=== PATIENT | male | born 1955 | race Caucasian/White ===

== ENCOUNTER 2018-07-16 12:00 | Outpatient (CLI) | payer OTHER, MEDICARE ==
[~2018-07-16 12:00] MED LIST: ALBU8.5H8 INH; BUDE10.2 INH; CARV-49 PO; CHOL10002 PO; DULO-31 PO; FLUT16SP26 BOTHNARES; FURO40TA4 PO; GABA-532 PO; LOSA25TA21 PO; MULT-342 PO; ONDA8TAB6 PO; OXYC-138 PO; PANT-47 PO; POTA10CA44 PO; VAL5T PO; VITA-293 PO; oxygen
== END 2018-07-16 23:59 | disposition home or self-care (01) ==
LOC: RAD 12:00
PROVIDERS: ATTEND Family Medicine
DX: S92.424A Nondisplaced fracture of distal phalanx of right great toe, initial encounter for closed fracture (principal); I13.0 Hypertensive heart and chronic kidney disease with heart failure and stage 1 through stage 4 chronic kidney disease, or unspecified chronic kidney disease; I50.9 Heart failure, unspecified; N18.3 Chronic kidney disease, stage 3 (moderate); J44.9 Chronic obstructive pulmonary disease, unspecified; Z91.041 Radiographic dye allergy status; Z91.030 Bee allergy status; Z87.891 Personal history of nicotine dependence; Z79.899 Other long term (current) drug therapy; X58.XXXA Exposure to other specified factors, initial encounter; Y93.89 Activity, other specified; Y92.89 Other specified places as the place of occurrence of the external cause; Y99.8 Other external cause status
CPT/HCPCS: 73660

== ENCOUNTER 2018-08-07 16:41 | Observation (INO) | payer OTHER, MEDICARE ==
[~2018-08-07] VITALS: Ht 172.7 cm; Wt 121.8 kg
[~2018-08-07 16:41] MED LIST changes: +LOSA25TA12 PO; -LOSA25TA21 PO
[2018-08-07 17:10] LABS: BASOPHILS % (AUTO) 0.4 % (0-1); EOSINOPHILS # (AUTO) 0.2 X10'3 (0-0.9); EOSINOPHILS % (AUTO) 2.3 % (0-6); HEMATOCRIT 38.3 % (42.0-52.0); HEMOGLOBIN 11.8 g/dl (14.0-17.9); LYMPHOCYTES % (AUTO) 28.5 % (21-51); MEAN CORPUSCULAR HEMOGLOBIN 21.2 PG (27.0-31.0); MEAN CORPUSCULAR HGB CONC 30.8 % (33.0-36.5); MEAN CORPUSCULAR VOLUME 68.8 FL (78-98); MEAN PLATELET VOLUME 7.3 FL (7.4-10.4); MONOCYTES # (AUTO) 0.6 X10'3 (0-0.9); MONOCYTES % (AUTO) 8.8 % (2-12); NEUTROPHILS # (AUTO) 4.2 X10'3 (1.8-7.7); PLATELET COUNT 294 X10'3 (140-440); RED BLOOD COUNT 5.57 X10'6 (4.70-6.10); RED CELL DISTRIBUTION WIDTH 19.4 % (11.5-14.5)
[2018-08-07 17:27] LABS: PARTIAL THROMBOPLASTIN TIME 28 SECONDS (22-32); PROTHROMBIN TIME 10.7 SECONDS (9.0-12.0)
[2018-08-07 17:31] LABS: ALANINE AMINOTRANSFERASE 22 U/L (12-78); ALBUMIN 3.2 G/DL (3.4-5.0); ALBUMIN/GLOBULIN RATIO 0.8 (1.1-1.5); ALKALINE PHOSPHATASE 97 IU/L (46-116); ANION GAP 9 (8-16); ASPARTATE AMINO TRANSFERASE 9 U/L (10-37); BILIRUBIN,TOTAL 0.5 MG/DL (0.1-1.0); BLOOD UREA NITROGEN 16 MG/DL (7-18); BUN/CREATININE RATIO 8.2 (5.4-32.0); CHLORIDE 103 MMOL/L (99-107); CREATININE 1.94 MG/DL (0.60-1.10); GLUCOSE 120 MG/DL (70-104); POTASSIUM 3.9 MMOL/L (3.5-5.1); SODIUM 140 MMOL/L (135-145); TOTAL CARBON DIOXIDE 27.7 MMOL/L (24-32); TOTAL PROTEIN 7.1 G/DL (6.4-8.2); eGFR 35 ML/MIN
[2018-08-07 17:56] LABS: PLATELET ESTIMATE NORMAL
[2018-08-07 17:57] LABS: ANISOCYTOSIS 2+; MICROCYTOSIS 2+; POLYCHROMASIA FEW
[2018-08-07 17:58] LABS: HYPOCHROMASIA 2+
[2018-08-07] MEDS ORDERED: nitroGLYCERIN 0.4mg SUBLingual tab SL PRN (20:40)
[2018-08-07] MEDS ORDERED: mag hydrox/Alum hydrox/simeth 30ml oral suspension PO PRN (20:40)
[2018-08-07] MEDS ORDERED: bisacodyl 10mg suppository rectal RC PRN (20:40)
[2018-08-07] MEDS ORDERED: morphine 4 MG/ML inj SYRINge IV PRN ×2 (20:40)
[2018-08-07] MEDS ORDERED: ondansetron/PF 4mg/2ml inj IV PRN ×2 (20:40→21:00)
[2018-08-07] MEDS ORDERED: aspirin 325mg tablet PO ONE (20:40)
[2018-08-07] MEDS ORDERED: magnesium hydroxide 30ml (MOM) UD suspension PO PRN (20:40)
[2018-08-07] MEDS ORDERED: acetaminophen 325mg tablet PO PRN (20:40)
[2018-08-07] MEDS ORDERED: gabapentin 300mg capsule PO SCH (21:00)
[2018-08-07] MEDS: normal saline 1000ml 1,000 ML IV SCH (21:08)
[2018-08-07] MEDS ORDERED: LORazepam 0.5 MG tablet PO PRN (21:10)
[2018-08-07 21:30] VITALS: BP 150/85
[2018-08-07] MEDS ORDERED: morphine 2 MG/ML inj. syringe IV PRN (21:39)
[2018-08-08] MEDS: albuterol 2.5 MG/3 ML nebule NEB SCH ×2 (00:07→08:00)
[2018-08-08 03:00] VITALS: BP 138/79
[2018-08-08 05:48] LABS: BASOPHILS % (AUTO) 0.6 % (0-1); EOSINOPHILS # (AUTO) 0.2 X10'3 (0-0.9); HEMATOCRIT 35.3 % (42.0-52.0); LYMPHOCYTES % (AUTO) 36.3 % (21-51); MEAN CORPUSCULAR HEMOGLOBIN 21.7 PG (27.0-31.0); MEAN CORPUSCULAR HGB CONC 31.2 % (33.0-36.5); MEAN CORPUSCULAR VOLUME 69.4 FL (78-98); MEAN PLATELET VOLUME 7.2 FL (7.4-10.4); MONOCYTES # (AUTO) 0.7 X10'3 (0-0.9); MONOCYTES % (AUTO) 12.7 % (2-12); NEUTROPHILS # (AUTO) 2.6 X10'3 (1.8-7.7); NEUTROPHILS % (AUTO) 47.4 % (42-75); PLATELET COUNT 226 X10'3 (140-440); RED BLOOD COUNT 5.09 X10'6 (4.70-6.10); RED CELL DISTRIBUTION WIDTH 18.6 % (11.5-14.5); WHITE BLOOD COUNT 5.5 X10'3 (4.5-11.0)
[2018-08-08 06:00] VITALS: BP 112/79
[2018-08-08 06:06] LABS: ALANINE AMINOTRANSFERASE 15 U/L (12-78); ALBUMIN 2.8 G/DL (3.4-5.0); ALBUMIN/GLOBULIN RATIO 0.8 (1.1-1.5); ALKALINE PHOSPHATASE 92 IU/L (46-116); ANION GAP 7 (8-16); ASPARTATE AMINO TRANSFERASE 11 U/L (10-37); BILIRUBIN,TOTAL 0.4 MG/DL (0.1-1.0); BLOOD UREA NITROGEN 17 MG/DL (7-18); BUN/CREATININE RATIO 9.6 (5.4-32.0); CALCIUM 8.5 MG/DL (8.5-10.1); CHLORIDE 105 MMOL/L (99-107); CREATININE 1.77 MG/DL (0.60-1.10); GLUCOSE 95 MG/DL (70-104); POTASSIUM 3.7 MMOL/L (3.5-5.1); SODIUM 142 MMOL/L (135-145); TOTAL CARBON DIOXIDE 29.8 MMOL/L (24-32); TOTAL PROTEIN 6.3 G/DL (6.4-8.2); eGFR 39 ML/MIN
[2018-08-08 06:40] LABS: ANISOCYTOSIS 2+; MICROCYTOSIS 2+; PLATELET ESTIMATE NORMAL
[2018-08-08] MEDS ORDERED: pantoprazole 40mg Tablet.DR PO SCH (07:30)
[2018-08-08] MEDS ORDERED: losartan 25mg tablet PO SCH ×2 (08:00→21:00)
[2018-08-08] MEDS ORDERED: fluticasone nasal spray 16GM bottle NS SCH ×2 (08:00→20:00)
[2018-08-08] MEDS ORDERED: aspirin 325mg tablet PO SCH (08:00)
[2018-08-08] MEDS ORDERED: potassium chloride 10mEq ER tablet PO SCH (08:00)
[2018-08-08] MEDS ORDERED: duloxetine 30mg CAPSULE.DR PO SCH (08:00)
[2018-08-08] MEDS ORDERED: docusate sod 100mg capsule PO SCH (08:00)
[2018-08-08] MEDS ORDERED: furosemide 20MG tablet PO SCH (08:00)
[2018-08-08] MEDS: normal saline 1000ml 1,000 ML IV SCH (09:43)
[2018-08-08 11:00] VITALS: BP 125/79
[2018-08-08] MEDS ORDERED: oxyCODONE/APAP 10/325mg tablet PO PRN (11:45)
[2018-08-08] MEDS ORDERED: non-formulary drug (Ondansetron Hcl (Zofran) 1 TAB) PO PRN (11:45)
[2018-08-08] MEDS ORDERED: non-formulary drug (Albuterol Sulfate (Proair Hfa) 2 PUFFS) INH PRN (11:45)
[2018-08-08] MEDS ORDERED: diazepam 5mg tablet PO PRN (11:45)
[2018-08-08] MEDS ORDERED: budesonide 0.5mg/2ml UD nebule IH SCH (20:00)
[2018-08-08] MEDS ORDERED: carvedilol 6.25mg tablet PO SCH (20:00)
[2018-08-08] MEDS ORDERED: potassium Cl 20 mEq SR tablet PO SCH (20:00)
[2018-08-08] MEDS ORDERED: furosemide 40mg tablet PO SCH (20:00)
[2018-08-08] MEDS ORDERED: gabapentin 300mg capsule PO SCH (21:00)
[2018-08-08] MEDS ORDERED: vitamin D (cholecalciferol) 1,000 unit tablet PO SCH (21:00)
[2018-08-09] MEDS ORDERED: vitamin B comp w/Vit. C tab 1 TAB TABLET PO SCH (08:00)
[2018-08-09] MEDS ORDERED: multivitamins, therapeutics tablet PO SCH (08:00)
[2018-08-09] MEDS ORDERED: pantoprazole 40mg Tablet.DR PO SCH (08:00)
[2018-08-09] MEDS ORDERED: duloxetine 30mg CAPSULE.DR PO SCH (08:00)
== END 2018-08-08 14:55 | disposition home or self-care (01) ==
LOC: ER 16:42 → ED HOLD 20:40 → PCU 3S 21:36
PROVIDERS: ADMIT Emergency Medicine; ATTEND Family Medicine
DX: J44.9 Chronic obstructive pulmonary disease, unspecified (principal); I13.0 Hypertensive heart and chronic kidney disease with heart failure and stage 1 through stage 4 chronic kidney disease, or unspecified chronic kidney disease; E11.22 Type 2 diabetes mellitus with diabetic chronic kidney disease; I50.32 Chronic diastolic (congestive) heart failure; N18.2 Chronic kidney disease, stage 2 (mild); I25.10 Atherosclerotic heart disease of native coronary artery without angina pectoris; N40.0 Benign prostatic hyperplasia without lower urinary tract symptoms; K21.9 Gastro-esophageal reflux disease without esophagitis; G93.89 Other specified disorders of brain; Z87.442 Personal history of urinary calculi; Z87.891 Personal history of nicotine dependence; Z90.49 Acquired absence of other specified parts of digestive tract; Z99.81 Dependence on supplemental oxygen
CPT/HCPCS: 36415; 70450; 71045; 80053; 84484; 85025; 85610; 85730; 87070; 93005; 93306; 94640; 96361; 96374; 99285; G0378; J2270; J7030; 96372

== ENCOUNTER 2018-08-30 10:33 | Outpatient (CLI) | payer OTHER, MEDICARE | END 2018-08-30 23:59 | disposition home or self-care (01) | LOC: VAS 10:33 | PROVIDERS: ATTEND Internal Medicine Cardiovascular Disease | DX: I65.23 Occlusion and stenosis of bilateral carotid arteries (principal); R06.02 Shortness of breath; I11.0 Hypertensive heart disease with heart failure; I50.9 Heart failure, unspecified; R55 Syncope and collapse; E11.9 Type 2 diabetes mellitus without complications; J44.9 Chronic obstructive pulmonary disease, unspecified; Z87.891 Personal history of nicotine dependence | CPT/HCPCS: 93880 ==

== ENCOUNTER 2018-09-10 07:16 | Outpatient (CLI) | payer OTHER, MEDICARE ==
[~2018-09-10] VITALS: Ht 172.7 cm; Wt 119.0 kg
[2018-09-10] VITALS (7 sets, daily range): BP systolic 106–134; BP diastolic 60–76
[2018-09-10] MEDS ORDERED: metoprolol tartrate 1mg/ml inj IV PRN (08:20)
[2018-09-10] MEDS ORDERED: aminophylline 250mg/10ml inj. IV PRN (08:20)
[2018-09-10] MEDS ORDERED: nitroGLYCERIN 0.4mg SUBLingual tab SL PRN (08:20)
[2018-09-10] MEDS ORDERED: aminophylline inj. 0 ML IV ONE (09:04)
[2018-09-10] MEDS ORDERED: regadenoson 0.4mg/5ml syringe IV ONE (09:04)
[2018-09-10] MEDS: regadenoson 0.4mg/5ml syringe IV PRN ×2 (09:05→09:24)
== END 2018-09-10 23:59 | disposition home or self-care (01) ==
LOC: RAD 07:16
PROVIDERS: ATTEND Internal Medicine Cardiovascular Disease
DX: R06.02 Shortness of breath (principal); R55 Syncope and collapse; I11.0 Hypertensive heart disease with heart failure; I50.9 Heart failure, unspecified; J44.9 Chronic obstructive pulmonary disease, unspecified; Z87.891 Personal history of nicotine dependence
CPT/HCPCS: 78452; 93017; A9500; J0280

== ENCOUNTER 2018-10-21 10:10 | Outpatient (CLI) | payer OTHER, MEDICARE ==
[2018-10-21 11:37] LABS: CLARITY,URINE SLIGHTLY CLOUDY (Clear); COLOR,URINE YELLOW (Yellow); GLUCOSE, URINE NEGATIVE (Neg); KETONES,URINE NEGATIVE (Neg); LEUKOCYTE ESTERASE ,URINE LARGE (Neg); NITRITES, URINE NEGATIVE (Neg); OCCULT BLOOD,URINE TRACE-INTACT (Neg); PROTEIN,URINE NEGATIVE (Neg); UROBILINOGEN,URINE 0.2 E.U/dL (0.2-1.0)
[2018-10-21 11:47] LABS: UA COLLECTION TYPE CLN CATCH MIDSTREAM
[2018-10-21 11:50] LABS: RBC,URINE 0-2 /HPF (0-2); WBC,URINE TNTC /HPF (0-4)
[2018-10-21 11:51] LABS: ALANINE AMINOTRANSFERASE 16 U/L (12-78); ALBUMIN/GLOBULIN RATIO 0.7 (1.1-1.5); ALKALINE PHOSPHATASE 94 IU/L (46-116); ANION GAP 8 (8-16); ASPARTATE AMINO TRANSFERASE 11 U/L (10-37); BILIRUBIN,TOTAL 0.4 MG/DL (0.1-1.0); BLOOD UREA NITROGEN 13 MG/DL (7-18); BUN/CREATININE RATIO 6.8 (5.4-32.0); CALCIUM 9.2 MG/DL (8.5-10.1); CHLORIDE 100 MMOL/L (99-107); CHOL/HDL RATIO 3.9 (0.00-4.99); CHOLESTEROL 135 MG/DL (0-200); CREATININE 1.92 MG/DL (0.60-1.10); GLUCOSE 97 MG/DL (70-104); HDL CHOLESTEROL 35 MG/DL (35-60); HEMOGLOBIN A1C 6.1 % (4.5-6.2); LDL CHOLESTEROL 87 MG/DL (50-100); POTASSIUM 3.6 MMOL/L (3.5-5.1); SODIUM 142 MMOL/L (135-145); TOTAL CARBON DIOXIDE 34.1 MMOL/L (24-32); TOTAL PROTEIN 7.6 G/DL (6.4-8.2); TRIGLYCERIDES 83 MG/DL (20-135); eGFR 35 ML/MIN
[2018-10-21 11:51] LABS: BACTERIA,URINE NONE SEEN /HPF (Neg); SQUAMOUS EPITHELIAL CELL,UR FEW /LPF (FEW)
[2018-10-21 11:52] LABS: WBC CLUMPS,URINE FEW /HPF (NEGATIVE)
[2018-10-21 12:24] LABS: BASOPHILS % (AUTO) 0.3 % (0-1); EOSINOPHILS # (AUTO) 0.2 X10'3 (0-0.9); HEMATOCRIT 38.9 % (42.0-52.0); HEMOGLOBIN 11.5 g/dl (14.0-17.9); LYMPHOCYTES # (AUTO) 1.8 X10'3 (1.1-4.8); LYMPHOCYTES % (AUTO) 29.4 % (21-51); MEAN CORPUSCULAR HEMOGLOBIN 20.5 PG (27.0-31.0); MEAN CORPUSCULAR HGB CONC 29.6 % (33.0-36.5); MEAN CORPUSCULAR VOLUME 69.1 FL (78-98); MEAN PLATELET VOLUME 7.7 FL (7.4-10.4); MONOCYTES # (AUTO) 0.5 X10'3 (0-0.9); MONOCYTES % (AUTO) 8.5 % (2-12); NEUTROPHILS # (AUTO) 3.5 X10'3 (1.8-7.7); NEUTROPHILS % (AUTO) 57.8 % (42-75); PLATELET COUNT 250 X10'3 (140-440); RED BLOOD COUNT 5.63 X10'6 (4.70-6.10); RED CELL DISTRIBUTION WIDTH 20.1 % (11.5-14.5)
[2018-10-21 12:28] LABS: PLATELET ESTIMATE NORMAL
[2018-10-21 12:30] LABS: ANISOCYTOSIS 2+; ELLIPTOCYTES FEW; HYPOCHROMASIA 2+; MICROCYTOSIS 2+; POLYCHROMASIA FEW; TEAR DROP CELLS FEW
== END 2018-10-21 23:59 | disposition home or self-care (01) ==
LOC: LAB 10:10
PROVIDERS: ATTEND Family Medicine
DX: J44.9 Chronic obstructive pulmonary disease, unspecified (principal); I11.0 Hypertensive heart disease with heart failure; I50.9 Heart failure, unspecified; E78.5 Hyperlipidemia, unspecified; R53.83 Other fatigue; Z87.891 Personal history of nicotine dependence
CPT/HCPCS: 36415; 80053; 80061; 81001; 82607; 82746; 83036; 84439; 84443; 84550; 85025; 87088

== ENCOUNTER 2018-10-30 11:20 | Emergency (ER) | payer OTHER, MEDICARE ==
[~2018-10-30] VITALS: Ht 170.2 cm; Wt 122.0 kg
[2018-10-30] MEDS ORDERED: ipratropium/albuterol 3ml nebule NEB ONE (12:15)
[2018-10-30 12:40] LABS: BASOPHILS % (AUTO) 0.6 % (0-1); EOSINOPHILS # (AUTO) 0.2 X10'3 (0-0.9); EOSINOPHILS % (AUTO) 2.8 % (0-6); HEMATOCRIT 35.6 % (42.0-52.0); HEMOGLOBIN 10.8 g/dl (14.0-17.9); LYMPHOCYTES # (AUTO) 1.3 X10'3 (1.1-4.8); LYMPHOCYTES % (AUTO) 20.8 % (21-51); MEAN CORPUSCULAR HEMOGLOBIN 20.6 PG (27.0-31.0); MEAN CORPUSCULAR HGB CONC 30.3 % (33.0-36.5); MEAN PLATELET VOLUME 7.5 FL (7.4-10.4); MONOCYTES # (AUTO) 0.6 X10'3 (0-0.9); MONOCYTES % (AUTO) 10.3 % (2-12); NEUTROPHILS % (AUTO) 65.5 % (42-75); PLATELET COUNT 267 X10'3 (140-440); RED BLOOD COUNT 5.23 X10'6 (4.70-6.10); RED CELL DISTRIBUTION WIDTH 20.3 % (11.5-14.5); WHITE BLOOD COUNT 6.2 X10'3 (4.5-11.0)
[2018-10-30 12:56] LABS: INR 1.1 INR; PROTHROMBIN TIME 10.7 SECONDS (9.0-12.0)
[2018-10-30 12:58] LABS: ALBUMIN/GLOBULIN RATIO 0.7 (1.1-1.5); ANION GAP 7 (8-16); ASPARTATE AMINO TRANSFERASE 11 U/L (10-37); BILIRUBIN,TOTAL 0.5 MG/DL (0.1-1.0); BLOOD UREA NITROGEN 18 MG/DL (7-18); BUN/CREATININE RATIO 9.1 (5.4-32.0); CALCIUM 8.8 MG/DL (8.5-10.1); CHLORIDE 103 MMOL/L (99-107); CREATININE 1.97 MG/DL (0.60-1.10); GLUCOSE 104 MG/DL (70-104); POTASSIUM 3.7 MMOL/L (3.5-5.1); SODIUM 142 MMOL/L (135-145); TOTAL CARBON DIOXIDE 31.8 MMOL/L (24-32); TOTAL PROTEIN 7.2 G/DL (6.4-8.2); eGFR 34 ML/MIN
[2018-10-30 12:59] LABS: ALANINE AMINOTRANSFERASE 16 U/L (12-78); ALKALINE PHOSPHATASE 91 IU/L (46-116)
[2018-10-30] MEDS ORDERED: levoFLOXACIN 750MG TABLET PO ONE (13:40)
[2018-10-30] MEDS ORDERED: PRED20TA PO (13:59)
[2018-10-30] MEDS ORDERED: LEVO750T21 PO (13:59)
[2018-10-30] MEDS ORDERED: methylPREDNISolone sod succ 125mg/2ml vial IV ONE (14:00)
[2018-10-30 14:30] VITALS: BP 123/42
[2018-10-30 14:58] LABS: PLATELET ESTIMATE NORMAL
[2018-10-30 14:59] LABS: HYPOCHROMASIA 2+
[2018-10-30 15:00] LABS: ANISOCYTOSIS 2+; ELLIPTOCYTES FEW; MICROCYTOSIS 2+; SCHISTOCYTES FEW
== END 2018-10-30 14:32 | disposition home or self-care (01) ==
LOC: ER 11:20
DX: J44.1 Chronic obstructive pulmonary disease with (acute) exacerbation (principal); I11.0 Hypertensive heart disease with heart failure; I50.9 Heart failure, unspecified; G89.29 Other chronic pain; Z90.49 Acquired absence of other specified parts of digestive tract; Z87.891 Personal history of nicotine dependence; Z91.030 Bee allergy status; Z91.048 Other nonmedicinal substance allergy status; Z79.899 Other long term (current) drug therapy
CPT/HCPCS: 36415; 71045; 80053; 83880; 84484; 85025; 85379; 85610; 93005; 94640; 94760; 96374; 99284; J2930

== ENCOUNTER 2018-12-26 07:34 | Outpatient (CLI) | payer OTHER, MEDICARE ==
[2018-12-26] VITALS (21 sets, daily range): BP systolic 93–125; BP diastolic 72–87
[~2018-12-26 07:34] MED LIST changes: -LOSA25TA12 PO; +LOSA25TA41 PO
== END 2018-12-26 23:59 | disposition home or self-care (01) ==
LOC: CARD DIAG 07:34
PROVIDERS: ATTEND Internal Medicine Cardiovascular Disease
DX: R42 Dizziness and giddiness (principal); I11.0 Hypertensive heart disease with heart failure; I50.9 Heart failure, unspecified; J44.9 Chronic obstructive pulmonary disease, unspecified; Z91.030 Bee allergy status; Z91.048 Other nonmedicinal substance allergy status
CPT/HCPCS: 93660

== ENCOUNTER 2019-10-19 07:45 | Emergency (ER) | payer OTHER, MEDICARE ==
[~2019-10-19] VITALS: Ht 172.7 cm; Wt 120.5 kg
[2019-10-19 09:09] LABS: BASOPHILS % (AUTO) 0.2 % (0-1); EOSINOPHILS % (AUTO) 0.2 % (0-6); HEMATOCRIT 36.2 % (42.0-52.0); HEMOGLOBIN 10.8 g/dl (14.0-17.9); LYMPHOCYTES % (AUTO) 5.9 % (21-51); MEAN CORPUSCULAR HEMOGLOBIN 19.1 PG (27.0-31.0); MEAN CORPUSCULAR HGB CONC 29.8 g/dL (33.0-36.5); MEAN CORPUSCULAR VOLUME 64.1 FL (78-98); MEAN PLATELET VOLUME 8.7 FL (7.4-10.4); MONOCYTES # (AUTO) 1.5 X10'3 (0-0.9); MONOCYTES % (AUTO) 9.1 % (2-12); NEUTROPHILS % (AUTO) 84.6 % (42-75); PLATELET COUNT 233 X10'3 (140-440); RED BLOOD COUNT 5.65 X10'6 (4.70-6.10); RED CELL DISTRIBUTION WIDTH 20.5 % (11.5-14.5); WHITE BLOOD COUNT 16.6 X10'3 (4.5-11.0)
[2019-10-19 09:15] LABS: CLARITY,URINE CLOUDY (Clear); COLOR,URINE YELLOW (Yellow); GLUCOSE, URINE NEGATIVE (Neg); KETONES,URINE NEGATIVE (Neg); LEUKOCYTE ESTERASE ,URINE LARGE (Neg); NITRITES, URINE POSITIVE (Neg); OCCULT BLOOD,URINE SMALL (Neg); PROTEIN,URINE TRACE mg/dl (Neg); UROBILINOGEN,URINE 0.2 E.U/dL (0.2-1.0)
[2019-10-19 09:19] LABS: ALANINE AMINOTRANSFERASE 16 U/L (12-78); ALBUMIN 3.3 G/DL (3.4-5.0); ALBUMIN/GLOBULIN RATIO 0.8 (1.1-1.5); ALKALINE PHOSPHATASE 91 IU/L (46-116); ANION GAP 11 (8-16); ASPARTATE AMINO TRANSFERASE 18 U/L (10-37); BILIRUBIN,TOTAL 0.6 MG/DL (0.1-1.0); BLOOD UREA NITROGEN 16 MG/DL (7-18); BUN/CREATININE RATIO 7.8 (5.4-32.0); CHLORIDE 103 MMOL/L (99-107); CREATININE 2.05 MG/DL (0.60-1.10); GLUCOSE 123 MG/DL (70-104); POTASSIUM 3.5 MMOL/L (3.5-5.1); SODIUM 143 MMOL/L (135-145); TOTAL CARBON DIOXIDE 29.3 MMOL/L (24-32); TOTAL PROTEIN 7.4 G/DL (6.4-8.2); eGFR 33 ML/MIN
[2019-10-19 09:20] LABS: UA COLLECTION TYPE URINAL
[2019-10-19 09:21] LABS: BACTERIA,URINE 4+ /HPF (Neg); MUCUS STRANDS FEW /LPF (Neg); RBC,URINE 0-2 /HPF (0-2); SQUAMOUS EPITHELIAL CELL,UR FEW /LPF (FEW); TRANSITIONAL EPI CELLS,URINE FEW /HPF; WBC,URINE TNTC /HPF (0-4)
[2019-10-19 09:23] LABS: PARTIAL THROMBOPLASTIN TIME 30 SECONDS (22-32)
[2019-10-19 09:29] LABS: ANISOCYTOSIS 3+; HYPOCHROMASIA 1+; MICROCYTOSIS 2+; PLATELET ESTIMATE NORMAL; POIKILOCYTOSIS FEW; POLYCHROMASIA 1+
[2019-10-19] MEDS ORDERED: normal saline 1000ML IV soln IVB ONE ×2 (09:30→09:35)
[2019-10-19] MEDS ORDERED: CefTRIAXone 2gm/D5W 50ml 50 ML IV ONE (09:35)
[2019-10-19] MEDS ORDERED: HYDROcodone/acetaminophen 5mg/325mg tablet PO ONE (09:45)
[2019-10-19] MEDS ORDERED: LORazepam 2 mg/ml vial IV ONE (11:15)
[2019-10-19] MEDS ORDERED: CEPH-572 PO (11:54)
[2019-10-19 12:37] VITALS: BP 117/57
[2019-10-19] MEDS ORDERED: CARV3.122 PO (16:50)
[2019-10-19] MEDS ORDERED: DULO60CA65 PO (17:29)
[2019-10-19] MEDS ORDERED: FLO0.4C PO (17:33)
[2019-10-19] MEDS ORDERED: TOLT4CAP14 PO (17:33)
== END 2019-10-19 12:39 | disposition home or self-care (01) ==
LOC: ER 07:45
DX: N39.0 Urinary tract infection, site not specified (principal); R06.02 Shortness of breath; I11.0 Hypertensive heart disease with heart failure; I50.9 Heart failure, unspecified; J44.9 Chronic obstructive pulmonary disease, unspecified; G89.29 Other chronic pain; F10.99 Alcohol use, unspecified with unspecified alcohol-induced disorder; Z87.442 Personal history of urinary calculi; Z87.891 Personal history of nicotine dependence; Z90.49 Acquired absence of other specified parts of digestive tract; Z91.030 Bee allergy status; Z88.6 Allergy status to analgesic agent; Z79.899 Other long term (current) drug therapy; Y90.9 Presence of alcohol in blood, level not specified
CPT/HCPCS: 36415; 71045; 80053; 81001; 83605; 84145; 84484; 85025; 85610; 85730; 87040; 87077; 87088; 87186; 93005; 96365; 96375; 99284; J0696; J2060; J7030

== ENCOUNTER 2019-10-19 14:13 | Inpatient (IN) | payer OTHER, MEDICARE ==
[~2019-10-19] VITALS: Ht 172.7 cm; Wt 147.7 kg
[~2019-10-19 14:13] MED LIST changes: +CEPH-572 PO
[2019-10-19] MEDS ORDERED: etomidate 2mg/ml inj. IV ONE (15:25)
[2019-10-19] MEDS ORDERED: morphine 4 MG/ML inj SYRINge ONE (15:48)
[2019-10-19] MEDS ORDERED: morphine 4 MG/ML inj SYRINge IV ONE (15:50)
[2019-10-19] MEDS ORDERED: acetaminophen 325mg tablet PO PRN (16:15)
[2019-10-19] MEDS ORDERED: ondansetron/PF 4mg/2ml inj IV PRN (16:15)
[2019-10-19] MEDS: normal saline 1000ml 1,000 ML IV SCH (16:26)
[2019-10-19] MEDS ORDERED: fentaNYL/PF 50MCG/1 ML 2ML syringe IV ONE (16:35)
[2019-10-19] MEDS ORDERED: CARV3.122 PO (16:50)
[2019-10-19] MEDS ORDERED: DULO60CA65 PO (17:29)
[2019-10-19] MEDS ORDERED: TOLT4CAP14 PO (17:33)
[2019-10-19] MEDS ORDERED: FLO0.4C PO (17:33)
[2019-10-19] MEDS: HYDROcodone/acetaminophen 5mg/325mg tablet PO PRN ×2 (18:23→22:13)
[2019-10-19 19:25] VITALS: BP 103/58
[2019-10-19] MEDS: docusate sod 100mg capsule PO SCH (20:00)
[2019-10-19] MEDS ORDERED: FLU VACC QS2019-20 36MOS UP/PF 60 MCG/0.5 ML SYRINGE IMVAC ONE (20:05)
[2019-10-20] MEDS: HYDROcodone/acetaminophen 5mg/325mg tablet PO PRN ×5 (02:16→21:46)
[2019-10-20] MEDS: normal saline 1000ml 1,000 ML IV SCH ×3 (02:20→22:28)
[2019-10-20 06:00] VITALS: BP 120/68
[2019-10-20 06:27] LABS: BASOPHILS # (AUTO) 0.1 X10'3 (0-0.2); BASOPHILS % (AUTO) 0.3 % (0-1); EOSINOPHILS % (AUTO) 0.2 % (0-6); HEMATOCRIT 29.8 % (42.0-52.0); LYMPHOCYTES # (AUTO) 1.2 X10'3 (1.1-4.8); LYMPHOCYTES % (AUTO) 6.3 % (21-51); MEAN CORPUSCULAR HEMOGLOBIN 19.2 PG (27.0-31.0); MEAN CORPUSCULAR HGB CONC 30.3 g/dL (33.0-36.5); MEAN CORPUSCULAR VOLUME 63.4 FL (78-98); MEAN PLATELET VOLUME 8.4 FL (7.4-10.4); MONOCYTES # (AUTO) 1.9 X10'3 (0-0.9); MONOCYTES % (AUTO) 9.7 % (2-12); NEUTROPHILS # (AUTO) 16.3 X10'3 (1.8-7.7); NEUTROPHILS % (AUTO) 83.5 % (42-75); PLATELET COUNT 192 X10'3 (140-440); RED CELL DISTRIBUTION WIDTH 21.1 % (11.5-14.5); WHITE BLOOD COUNT 19.5 X10'3 (4.5-11.0)
[2019-10-20 06:41] LABS: ALBUMIN 2.5 G/DL (3.4-5.0); ANION GAP 9 (8-16); BLOOD UREA NITROGEN 18 MG/DL (7-18); BUN/CREATININE RATIO 9.4 (5.4-32.0); CALCIUM 8.1 MG/DL (8.5-10.1); CHLORIDE 105 MMOL/L (99-107); CREATININE 1.91 MG/DL (0.60-1.10); GLUCOSE 123 MG/DL (70-104); SODIUM 139 MMOL/L (135-145); TOTAL CARBON DIOXIDE 24.7 MMOL/L (24-32); eGFR 35 ML/MIN
[2019-10-20 06:43] LABS: PLATELET ESTIMATE NORMAL
[2019-10-20 06:44] LABS: ANISOCYTOSIS 3+; HYPOCHROMASIA 1+; MICROCYTOSIS 2+
--- NOTE | 2019-10-20 06:44 | NUR ---
Received report from Antionette RN
[2019-10-20 06:45] LABS: POTASSIUM 2.9 MMOL/L (3.5-5.1)
[2019-10-20] MEDS: docusate sod 100mg capsule PO SCH ×2 (07:41→20:00)
[2019-10-20] MEDS: CefTRIAXone/D5W-Rocephin 1gm 50 ML IV SCH (07:44)
[2019-10-20] MEDS ORDERED: potassium Cl 20 mEq SR tablet PO PRN (08:35)
[2019-10-20] MEDS ORDERED: potassium CL 10mEq/100ml bag 100 ML IV PRN (08:35)
[2019-10-20] MEDS: potassium Cl 20 mEq SR tablet PO PRN ×3 (09:07→23:01)
[2019-10-20 10:00] VITALS: BP 111/42
[2019-10-20] MEDS ORDERED: oxyCODONE/APAP 10/325mg tablet PO PRN (10:05)
[2019-10-20] MEDS ORDERED: albuterol 2.5 MG/3 ML nebule NEB PRN (10:20)
[2019-10-20] MEDS ORDERED: duloxetine 30mg CAPSULE.DR PO SCH (10:30)
[2019-10-20] MEDS: tolterodine 2mg SR capsule (24hr) PO SCH (10:54)
[2019-10-20] MEDS: tamsulosin 0.4mg capsule PO SCH (10:55)
[2019-10-20] MEDS: albuterol 2.5 MG/3 ML nebule NEB SCH ×2 (14:31→20:41)
[2019-10-20 17:00] VITALS: BP 115/80
--- NOTE | 2019-10-20 18:28 | NUR ---
Received report from Yi CARRILLO. assumed care of patient.
[2019-10-20] MEDS: potassium Cl 20 mEq SR tablet PO SCH (20:00)
[2019-10-20] MEDS ORDERED: carVEDilol 3.125mg tablet PO SCH (20:00)
[2019-10-20] MEDS: lactobacillus rhamnosus 10,000 MMU CELLS/CAPSULE PO SCH (20:14)
[2019-10-20] MEDS: fluticasone nasal spray 16GM bottle NS SCH (20:15)
[2019-10-20] MEDS: budesonide 0.5mg/2ml UD nebule IH SCH (20:41)
[2019-10-20] MEDS ORDERED: losartan 25mg tablet PO SCH ×2 (21:00)
[2019-10-20] MEDS ORDERED: gabapentin 300mg capsule PO SCH (21:00)
[2019-10-20 22:00] VITALS: BP 157/80
[2019-10-21] MEDS: albuterol 2.5 MG/3 ML nebule NEB SCH ×4 (02:25→14:28)
[2019-10-21] MEDS: HYDROcodone/acetaminophen 5mg/325mg tablet PO PRN ×2 (03:40→11:02)
[2019-10-21 06:00] VITALS: BP 129/73
[2019-10-21 06:04] LABS: ALBUMIN 2.4 G/DL (3.4-5.0); ANION GAP 10 (8-16); BLOOD UREA NITROGEN 12 MG/DL (7-18); BUN/CREATININE RATIO 7.1 (5.4-32.0); CALCIUM 8.4 MG/DL (8.5-10.1); CHLORIDE 109 MMOL/L (99-107); CREATININE 1.69 MG/DL (0.60-1.10); GLUCOSE 106 MG/DL (70-104); POTASSIUM 3.6 MMOL/L (3.5-5.1); SODIUM 141 MMOL/L (135-145); TOTAL CARBON DIOXIDE 22.5 MMOL/L (24-32); eGFR 41 ML/MIN
[2019-10-21 06:08] LABS: BASOPHILS % (AUTO) 0.4 % (0-1); EOSINOPHILS # (AUTO) 0.2 X10'3 (0-0.9); EOSINOPHILS % (AUTO) 1.8 % (0-6); HEMATOCRIT 28.6 % (42.0-52.0); HEMOGLOBIN 8.6 g/dl (14.0-17.9); LYMPHOCYTES # (AUTO) 1.2 X10'3 (1.1-4.8); LYMPHOCYTES % (AUTO) 12.2 % (21-51); MEAN CORPUSCULAR HEMOGLOBIN 19.4 PG (27.0-31.0); MEAN CORPUSCULAR VOLUME 64.5 FL (78-98); MEAN PLATELET VOLUME 8.4 FL (7.4-10.4); MONOCYTES % (AUTO) 10.9 % (2-12); NEUTROPHILS # (AUTO) 7.2 X10'3 (1.8-7.7); NEUTROPHILS % (AUTO) 74.7 % (42-75); PLATELET COUNT 182 X10'3 (140-440); RED BLOOD COUNT 4.44 X10'6 (4.70-6.10); RED CELL DISTRIBUTION WIDTH 21.3 % (11.5-14.5); WHITE BLOOD COUNT 9.6 X10'3 (4.5-11.0)
--- NOTE | 2019-10-21 06:20 | NUR ---
Gave report to Yi CARRILLO.
--- NOTE | 2019-10-21 06:39 | NUR ---
Patient in room ORTHO 4007. I have received report from HAYDEN CARRILLO and had the opportunity to ask questions and assume patient care.
[2019-10-21 06:51] LABS: ANISOCYTOSIS 3+; HYPOCHROMASIA 2+; MICROCYTOSIS 2+; PLATELET ESTIMATE NORMAL
[2019-10-21] MEDS: docusate sod 100mg capsule PO SCH (07:33)
[2019-10-21] MEDS: lactobacillus rhamnosus 10,000 MMU CELLS/CAPSULE PO SCH (07:35)
[2019-10-21] MEDS: tolterodine 2mg SR capsule (24hr) PO SCH (07:37)
[2019-10-21] MEDS: tamsulosin 0.4mg capsule PO SCH (07:37)
[2019-10-21] MEDS: potassium Cl 20 mEq SR tablet PO SCH (07:38)
[2019-10-21] MEDS: fluticasone nasal spray 16GM bottle NS SCH (07:40)
[2019-10-21] MEDS: CefTRIAXone/D5W-Rocephin 1gm 50 ML IV SCH (07:40)
[2019-10-21] MEDS ORDERED: multivitamins, therapeutics tablet PO SCH (08:00)
[2019-10-21] MEDS ORDERED: vitamin B comp w/Vit. C tab 1 TAB TABLET PO SCH (08:00)
[2019-10-21] MEDS ORDERED: pantoprazole 40mg Tablet.DR PO SCH (08:00)
[2019-10-21] MEDS: budesonide 0.5mg/2ml UD nebule IH SCH ×2 (08:00→08:29)
[2019-10-21] MEDS: normal saline 1000ml 1,000 ML IV SCH (08:52)
[2019-10-21 10:34] VITALS: BP 115/66
[2019-10-21] MEDS ORDERED: LEVO500T2 PO (14:56)
[2019-10-21 15:34] LABS: % IRON SATURATION 4 % (11-46); IRON 10 UG/DL (53-167); TOTAL IRON BINDING CAPACITY 279 UG/DL (259-388)
== END 2019-10-21 16:40 | disposition home or self-care (01) | DRG 872 ==
LOC: ER 14:14 → ED HOLD 16:11 → ORTHO 4S 19:10
PROVIDERS: ADMIT Internal Medicine; ATTEND Internal Medicine
PROC: 0PSHXZZ Reposition Right Radius, External Approach (ICD-10-PCS; 2019-10-19)
PROC: 0PSKXZZ Reposition Right Ulna, External Approach (ICD-10-PCS; 2019-10-19)
PROC: 5A09357 Assistance with Respiratory Ventilation, Less than 24 Consecutive Hours, Continuous Positive Airway Pressure (ICD-10-PCS; principal; 2019-10-20)
PROC: 5A09357 Assistance with Respiratory Ventilation, Less than 24 Consecutive Hours, Continuous Positive Airway Pressure (ICD-10-PCS; 2019-10-21)
DX: A41.9 Sepsis, unspecified organism (principal); S52.501A Unspecified fracture of the lower end of right radius, initial encounter for closed fracture; S52.601A Unspecified fracture of lower end of right ulna, initial encounter for closed fracture; Z68.42 Body mass index [BMI] 45.0-49.9, adult; N39.0 Urinary tract infection, site not specified; N17.9 Acute kidney failure, unspecified; E66.9 Obesity, unspecified; I11.0 Hypertensive heart disease with heart failure; W01.0XXA Fall on same level from slipping, tripping and stumbling without subsequent striking against object, initial encounter; F32.9 Major depressive disorder, single episode, unspecified; E87.6 Hypokalemia; G89.29 Other chronic pain; K21.9 Gastro-esophageal reflux disease without esophagitis; M54.9 Dorsalgia, unspecified; I50.9 Heart failure, unspecified; J43.9 Emphysema, unspecified; N40.0 Benign prostatic hyperplasia without lower urinary tract symptoms; Z87.442 Personal history of urinary calculi; Z90.49 Acquired absence of other specified parts of digestive tract; Y93.89 Activity, other specified; Y92.89 Other specified places as the place of occurrence of the external cause; Y99.8 Other external cause status; Z91.030 Bee allergy status; Z91.041 Radiographic dye allergy status; Z83.3 Family history of diabetes mellitus; Z79.899 Other long term (current) drug therapy
CPT/HCPCS: 25605; 36415; 70450; 72125; 73080; 73100; 73110; 80048; 83540; 83550; 85025; 87081; 93306; 94640; 94760; 96374; 97110; 97116; 97161; 97530; 97535; 99285; G0378; J0696; J2270; J3010; J7030; J7626; Q2037

== ENCOUNTER 2019-11-04 05:25 | Day surgery (SDC) | payer OTHER, MEDICARE ==
[~2019-11-04] VITALS: Ht 172.7 cm; Wt 121.0 kg
[2019-11-04] VITALS (10 sets, daily range): BP systolic 122–145; BP diastolic 69–86
[~2019-11-04 05:25] MED LIST changes: -CARV-49 PO; +CARV-50 PO; -CEPH-572 PO; -CHOL10002 PO; -DULO-31 PO; +DULO60CA65 PO; -FURO40TA4 PO; -ONDA8TAB6 PO; -OXYC-138 PO; -POTA10CA44 PO; +ringers solution, lacted 1,000 ML IV SCH
[2019-11-04] MEDS ORDERED: vancomycin inj 1,500 MG in normal saline 300ml IV soln IV ONE (05:30)
[2019-11-04] MEDS ORDERED: cefazolin/dext.iso 2gm/100ml 100 ML IV ONE (05:30)
[2019-11-04] MEDS ORDERED: famotidine 20mg tablet PO ONE (05:30)
[2019-11-04] MEDS ORDERED: DOCUMENT DATE & TIME OF BETA-BLOCKER PO ONE (05:30)
[2019-11-04] MEDS ORDERED: BUPIVAcaine/PF 2.5 mg/ml (0.25%) 30ml vial ONE (06:08)
[2019-11-04] MEDS ORDERED: ceFAZolin 1000mg inj ONE ×2 (06:08→07:31)
[2019-11-04] MEDS ORDERED: sevoflurane 250ml liquid IH ONE (06:35)
[2019-11-04] MEDS ORDERED: fentaNYL/PF 50MCG/1 ML 2ML syringe ONE (06:42)
[2019-11-04] MEDS ORDERED: MIDAZolam 5mg/5ml vial ONE (06:43)
[2019-11-04] MEDS ORDERED: ringers solution, lacted 1,000 ML IV SCH (07:29)
[2019-11-04] MEDS ORDERED: meperidine/PF 25mg/ml syringe IV PRN ×2 (07:30)
[2019-11-04] MEDS ORDERED: ondansetron/PF 4mg/2ml inj IV PRN (07:30)
[2019-11-04] MEDS ORDERED: morphine 4 MG/ML inj SYRINge IV PRN ×2 (07:30)
[2019-11-04] MEDS ORDERED: proCHLORperazine 10 MG/2 ml inj IV PRN (07:30)
[2019-11-04] MEDS ORDERED: dexamethasone sod phosphate 4mg/ml inj. ONE (07:31)
[2019-11-04] MEDS ORDERED: LIDOcaine 1%/PF 5ML 10 MG/ML VIAL ONE (07:31)
[2019-11-04] MEDS ORDERED: propofol inj 20 ML IV ONE (07:31)
[2019-11-04] MEDS ORDERED: ondansetron/PF 4mg/2ml inj ONE (07:31)
[2019-11-04] MEDS ORDERED: ROPIVAcaine 0.5% (5mg/ml) 30ml vial ONE (07:31)
--- NOTE | 2019-11-04 07:58 | NUR ---
Received from OR via , accompanied by Anesthesiologist VAIBHAV and report given by Anesthesiolgist. AWAKENS EASILY IN NO RESP DISTRESS SKIN WARM AND DRY HOB AND RUE ELEVATED, ICE TO RT WRIST, NO CO PAIN, FINGERS WARM PINK GOOD CAP REFILL. VS WNL.
[2019-11-04] MEDS: meperidine/PF 25mg/ml syringe IV PRN ×2 (08:18→08:33)
[2019-11-04] MEDS ORDERED: HYDROcodone/acetaminophen 10/325mg tab PO ONE (08:55)
--- NOTE | 2019-11-04 09:48 | NUR ---
AWAKE VS WNL, PAIN DECREASED AFTER MEDS. MOVES FINGERS RT HAND, FINGERS WARM PINK GOOD CAP REFILL, ICE TO WRIST, DSG DI, DISCH INSTR GIVEN TO PT AND SO AND UNDERSTOOD. TOLERATES LIQUIDS. HOME WITH SO.
== END 2019-11-04 09:48 | disposition home or self-care (01) ==
LOC: PAS 05:25
PROVIDERS: ATTEND Orthopaedic Surgery
DX: S52.571A Other intraarticular fracture of lower end of right radius, initial encounter for closed fracture (principal); J44.9 Chronic obstructive pulmonary disease, unspecified; I10 Essential (primary) hypertension; D64.9 Anemia, unspecified; G89.18 Other acute postprocedural pain; E66.9 Obesity, unspecified; Z68.41 Body mass index [BMI] 40.0-44.9, adult; Z88.8 Allergy status to other drugs, medicaments and biological substances; Z87.891 Personal history of nicotine dependence; X58.XXXA Exposure to other specified factors, initial encounter; Y93.89 Activity, other specified; Y92.89 Other specified places as the place of occurrence of the external cause; Y99.8 Other external cause status
CPT/HCPCS: 25609; 64417; 82948; A6222; C1713; J0690; J1100; J2175; J2250; J2405; J2704; J3010; J3370; J3490; J7120; A4618; A6449; A7000; J2795

== ENCOUNTER 2020-03-01 13:12 | Outpatient (CLI) | payer OTHER, MEDICARE ==
[~2020-03-01 13:12] MED LIST changes: -CARV-50 PO; +CARV3.122 PO; +CEFU250T95 PO; +FLO0.4C PO; -GABA-532 PO; +GABA600T13 PO; -LOSA25TA41 PO; +METH1TAB32 PO; +TOLT4CAP14 PO; -ringers solution, lacted 1,000 ML IV SCH
== END 2020-03-01 23:55 | disposition home or self-care (01) ==
LOC: RAD 13:12
PROVIDERS: ATTEND Orthopaedic Surgery
DX: S52.571A Other intraarticular fracture of lower end of right radius, initial encounter for closed fracture (principal); S42.454A Nondisplaced fracture of lateral condyle of right humerus, initial encounter for closed fracture; M19.011 Primary osteoarthritis, right shoulder; X58.XXXA Exposure to other specified factors, initial encounter; Y93.89 Activity, other specified; Y92.89 Other specified places as the place of occurrence of the external cause; Y99.8 Other external cause status
CPT/HCPCS: 73221

== ENCOUNTER 2020-04-22 10:14 | Outpatient (CLI) | payer OTHER, MEDICARE | END 2020-04-22 23:59 | disposition home or self-care (01) | LOC: 64 CT 10:14 | PROVIDERS: ATTEND Family Medicine Sports Medicine | DX: S42.401K Unspecified fracture of lower end of right humerus, subsequent encounter for fracture with nonunion (principal); M75.01 Adhesive capsulitis of right shoulder; E66.9 Obesity, unspecified; M21.821 Other specified acquired deformities of right upper arm; M25.711 Osteophyte, right shoulder; M25.411 Effusion, right shoulder; R60.9 Edema, unspecified; X58.XXXD Exposure to other specified factors, subsequent encounter | CPT/HCPCS: 73200 ==

== ENCOUNTER 2020-06-29 05:47 | Day surgery (SDC) | payer BC, MEDICARE ==
[2020-06-22 16:07] LABS: BASOPHILS % (AUTO) 0.4 % (0-1); EOSINOPHILS # (AUTO) 0.3 X10'3 (0-0.9); EOSINOPHILS % (AUTO) 3.4 % (0-6); LYMPHOCYTES # (AUTO) 1.7 X10'3 (1.1-4.8); LYMPHOCYTES % (AUTO) 21.4 % (21-51); MEAN CORPUSCULAR HEMOGLOBIN 31.3 PG (27.0-31.0); MEAN CORPUSCULAR HGB CONC 33.1 g/dL (33.0-36.5); MEAN CORPUSCULAR VOLUME 94.5 FL (78-98); MONOCYTES # (AUTO) 0.8 X10'3 (0-0.9); MONOCYTES % (AUTO) 9.8 % (2-12); PRE OP HEMATOCRIT 47.7 % (42.0-52.0); PRE OP HEMOGLOBIN 15.8 g/dL (14.0-17.9); PRE OP PLATELET COUNT 201 X10'3 (140-440); RED BLOOD COUNT 5.04 X10'6 (4.70-6.10); RED CELL DISTRIBUTION WIDTH 15.4 % (11.5-14.5)
[2020-06-22 16:21] LABS: ALBUMIN 3.4 G/DL (3.4-5.0); ALBUMIN/GLOBULIN RATIO 0.9 (1.1-1.5); ALKALINE PHOSPHATASE 88 IU/L (46-116); BLOOD UREA NITROGEN 22 MG/DL (7-18); BUN/CREATININE RATIO 12.5 (5.4-32.0); CALCIUM 9.2 MG/DL (8.5-10.1); CHLORIDE 107 MMOL/L (99-107); CREATININE 1.76 MG/DL (0.60-1.10); PRE OP ALT 25 U/L (30-65); PRE OP ANION GAP 9 (8-16); PRE OP AST 15 U/L (10-37); PRE OP BILIRUB, TOTAL 0.4 MG/DL (0.0-1.0); PRE OP GLUCOSE 103 MG/DL (70-104); PRE OP SODIUM 143 MMOL/L (135-145); TOTAL CARBON DIOXIDE 27.1 MMOL/L (24-32); TOTAL PROTEIN 7.2 G/DL (6.4-8.2); eGFR 39 ML/MIN
[2020-06-22 16:22] LABS: PRE OP POTASSIUM 3.3 MMOL/L (3.4-5.1)
[~2020-06-29] VITALS: Ht 172.7 cm; Wt 122.3 kg
[2020-06-29] VITALS (11 sets, daily range): BP systolic 132–171; BP diastolic 74–98
[~2020-06-29 05:47] MED LIST changes: +ARMO200T4 PO; +ASPI-1264 PO; +CALC250T2 PO; -CEFU250T95 PO; +DOCU-150 PO; +DOCUMENT DATE & TIME OF BETA-BLOCKER PO ONE; +GABA300C PO; -GABA600T13 PO; +IRON PO; +LOSA25TA96 PO; +MESSAGE TO NURSING IV ONE; -METH1TAB32 PO; +OMEG-79 PO; +ONDA8TAB6 PO; +OXYC-138 PO; +VITAMIN D3 PO; +famotidine 20mg tablet PO ONE; +ringers solution, lacted 1,000 ML IV SCH
[2020-06-29] MEDS ORDERED: cefazolin/dext.iso 2gm/100ml 50 ML IV ONE (06:30)
[2020-06-29] MEDS ORDERED: BUPIVAcaine/PF 2.5 mg/ml (0.25%) 30ml vial ONE (06:48)
[2020-06-29] MEDS ORDERED: LIDOcaine 1% 30ml preserv. free vial ONE (07:18)
[2020-06-29] MEDS ORDERED: midazolam 2 mg/2 ml injection ONE (07:20)
[2020-06-29] MEDS ORDERED: fentaNYL/PF 50MCG/1 ML 2ML syringe ONE (07:20)
[2020-06-29] MEDS ORDERED: ringers solution, lacted 1,000 ML IV SCH (07:48)
[2020-06-29] MEDS ORDERED: ondansetron/PF 4mg/2ml inj IV PRN (07:50)
[2020-06-29] MEDS ORDERED: morphine 4 MG/ML inj SYRINge IV PRN (07:50)
[2020-06-29] MEDS ORDERED: meperidine/PF 25mg/ml syringe IV PRN ×3 (07:50)
[2020-06-29] MEDS ORDERED: proCHLORperazine 10 MG/2 ml inj IV PRN (07:50)
[2020-06-29] MEDS ORDERED: morphine 2 MG/ML inj. syringe IV PRN (07:50)
[2020-06-29] MEDS ORDERED: propofol inj 20 ML IV ONE (07:59)
--- NOTE | 2020-06-29 08:04 | NUR ---
Received from OR via KEERTHI, accompanied by Anesthesiologist DR LONG and report given by Anesthesiologist. PT AWAKE, DENIES PAIN, RIGHT HAND/WRIST W/ALVIN WRAP COVERING DRSG, CDI, RIGHT ARM IN SLING, FINGERS PWD, PLANT WIRE CHIEF 1-2 SECONDS. Addendum: 06/29/20 at 0842 by Josi Castro RN Amended: Links added.
[2020-06-29] MEDS ORDERED: HYDROcodone/acetaminophen 10/325mg tab PO PRN (08:05)
--- NOTE | 2020-06-29 10:14 | NUR ---
PT UP AMBULATING, STATES IS VERY COMFORTABLE, D/C INSTRUCTIONS GIVEN AND GONE W/PT WHO VERBALIZED UNDERSTANDING, PT D/CD TO HOME VIA W/C TO PRIVATE VEHICLE W/O INCIDENT. Addendum: 06/29/20 at 1035 by Josi Castro RN Amended: Links added.
== END 2020-06-29 10:14 | disposition home or self-care (01) ==
LOC: PAS 05:47
PROVIDERS: ATTEND Orthopaedic Surgery
DX: G56.01 Carpal tunnel syndrome, right upper limb (principal); I10 Essential (primary) hypertension; G47.30 Sleep apnea, unspecified; E11.9 Type 2 diabetes mellitus without complications; F32.9 Major depressive disorder, single episode, unspecified; F41.9 Anxiety disorder, unspecified; M19.072 Primary osteoarthritis, left ankle and foot; E66.9 Obesity, unspecified; Z68.41 Body mass index [BMI] 40.0-44.9, adult; Z11.59 Encounter for screening for other viral diseases; Z79.899 Other long term (current) drug therapy; Z88.8 Allergy status to other drugs, medicaments and biological substances; Z90.49 Acquired absence of other specified parts of digestive tract; Z98.890 Other specified postprocedural states; Z87.891 Personal history of nicotine dependence; Z72.89 Other problems related to lifestyle; Z87.442 Personal history of urinary calculi; Z88.5 Allergy status to narcotic agent; Z91.030 Bee allergy status
CPT/HCPCS: 36415; 64721; 80053; 82948; 85025; 93005; A6222; J2001; J2250; J2704; J3010; J3490; U0003; A4215; A4565; A6449; A6455; A7000; J7120

== ENCOUNTER → 2021-01-06 | Outpatient (CLI) | payer BC, MEDICARE ==
[~2021-01-06] MED LIST changes: +DIAZ5TAB22 PO; -DOCUMENT DATE & TIME OF BETA-BLOCKER PO ONE; -MESSAGE TO NURSING IV ONE; -VAL5T PO; -famotidine 20mg tablet PO ONE; -ringers solution, lacted 1,000 ML IV SCH
== END | disposition home or self-care (01) ==
LOC: RAD 11:58
PROVIDERS: ATTEND Orthopaedic Surgery
DX: M19.021 Primary osteoarthritis, right elbow (principal); Z98.890 Other specified postprocedural states; S42.491 Other displaced fracture of lower end of right humerus; X58.XXXA Exposure to other specified factors, initial encounter; Y93.89 Activity, other specified; Y92.89 Other specified places as the place of occurrence of the external cause

== ENCOUNTER 2021-01-13 11:59 | Outpatient (CLI) | payer BC, MEDICARE ==
[~2021-01-13 11:59] MED LIST changes: -DIAZ5TAB22 PO; +VAL5T PO
== END 2021-01-13 23:59 | disposition home or self-care (01) ==
LOC: RAD 11:59
PROVIDERS: ATTEND Orthopaedic Surgery
DX: S42.491 Other displaced fracture of lower end of right humerus (principal); M19.021 Primary osteoarthritis, right elbow; Z98.890 Other specified postprocedural states; X58.XXXD Exposure to other specified factors, subsequent encounter
CPT/HCPCS: 73221

== ENCOUNTER 2021-03-28 06:59 | Emergency (ER) | payer BC, MEDICARE ==
[~2021-03-28] VITALS: Ht 172.7 cm; Wt 125.5 kg
[~2021-03-28 06:59] MED LIST changes: +DIAZ5TAB22 PO; -VAL5T PO
[2021-03-28 08:18] LABS: BASOPHILS % (AUTO) 0.6 % (0-1); EOSINOPHILS # (AUTO) 0.3 X10'3 (0-0.9); EOSINOPHILS % (AUTO) 4.1 % (0-6); HEMATOCRIT 41.6 % (42.0-52.0); HEMOGLOBIN 14.2 g/dl (14.0-17.9); LYMPHOCYTES # (AUTO) 1.6 X10'3 (1.1-4.8); LYMPHOCYTES % (AUTO) 25.1 % (21-51); MEAN CORPUSCULAR HEMOGLOBIN 32.8 PG (27.0-31.0); MEAN CORPUSCULAR HGB CONC 34.1 g/dL (33.0-36.5); MEAN CORPUSCULAR VOLUME 96.3 FL (78-98); MEAN PLATELET VOLUME 7.1 FL (7.4-10.4); MONOCYTES # (AUTO) 0.7 X10'3 (0-0.9); MONOCYTES % (AUTO) 10.7 % (2-12); NEUTROPHILS # (AUTO) 3.7 X10'3 (1.8-7.7); NEUTROPHILS % (AUTO) 59.5 % (42-75); PLATELET COUNT 198 X10'3 (140-440); RED BLOOD COUNT 4.33 X10'6 (4.70-6.10); RED CELL DISTRIBUTION WIDTH 14.4 % (11.5-14.5); WHITE BLOOD COUNT 6.2 X10'3 (4.5-11.0)
[2021-03-28 08:37] LABS: ALANINE AMINOTRANSFERASE 25 U/L (12-78); ALBUMIN 3.1 G/DL (3.4-5.0); ALBUMIN/GLOBULIN RATIO 0.8 (1.1-1.5); ALKALINE PHOSPHATASE 75 IU/L (46-116); ANION GAP 9 (8-16); ASPARTATE AMINO TRANSFERASE 12 U/L (10-37); BILIRUBIN,TOTAL 0.7 MG/DL (0.1-1.0); BLOOD UREA NITROGEN 17 MG/DL (7-18); BUN/CREATININE RATIO 9.6 (5.4-32.0); CALCIUM 9.2 MG/DL (8.5-10.1); CHLORIDE 107 MMOL/L (99-107); CREATININE 1.78 MG/DL (0.60-1.10); GLUCOSE 116 MG/DL (70-104); SODIUM 143 MMOL/L (135-145); TOTAL CARBON DIOXIDE 27.5 MMOL/L (24-32); TOTAL PROTEIN 6.9 G/DL (6.4-8.2); TROPONIN I < 0.04 NG/ML (0.0-0.05); eGFR 38 ML/MIN
[2021-03-28 08:40] LABS: POTASSIUM 2.9 MMOL/L (3.5-5.1)
[2021-03-28] MEDS ORDERED: potassium Cl 20 mEq SR tablet PO ONE (09:20)
[2021-03-28 10:21] VITALS: BP 140/112
== END 2021-03-28 10:23 | disposition home or self-care (01) ==
LOC: ER 07:04
DX: M66.0 Rupture of popliteal cyst (principal); E87.6 Hypokalemia; I50.9 Heart failure, unspecified; I11.0 Hypertensive heart disease with heart failure; J44.9 Chronic obstructive pulmonary disease, unspecified; G89.29 Other chronic pain; Z87.440 Personal history of urinary (tract) infections; Z90.49 Acquired absence of other specified parts of digestive tract; Z72.89 Other problems related to lifestyle; Z79.82 Long term (current) use of aspirin; Z79.899 Other long term (current) drug therapy; Z91.030 Bee allergy status; Z91.041 Radiographic dye allergy status
CPT/HCPCS: 36415; 71045; 80053; 83880; 84484; 85025; 93005; 99285

== ENCOUNTER 2021-04-13 10:31 | Outpatient (CLI) | payer BC, MEDICARE | END 2021-04-13 23:59 | disposition home or self-care (01) | LOC: RAD 10:31 | PROVIDERS: ATTEND Family Medicine | DX: S83.242A Other tear of medial meniscus, current injury, left knee, initial encounter (principal); M71.22 Synovial cyst of popliteal space [Baker], left knee; M25.462 Effusion, left knee; X58.XXXA Exposure to other specified factors, initial encounter; Y93.89 Activity, other specified; Y92.89 Other specified places as the place of occurrence of the external cause; Y99.8 Other external cause status | CPT/HCPCS: 73721 ==

== ENCOUNTER 2021-05-07 10:05 | Emergency (ER) | payer BC, MEDICARE ==
[~2021-05-07] VITALS: Ht 172.7 cm; Wt 125.9 kg
[2021-05-07] MEDS ORDERED: ibuprofen tablet 400 MG TABLET PO ONE (10:15)
[2021-05-07] MEDS ORDERED: HYDROcodone/acetaminophen 10/325mg tab PO ONE (11:30)
[2021-05-07 11:31] VITALS: BP 163/110
== END 2021-05-07 12:45 | disposition home or self-care (01) ==
LOC: ER 10:05
DX: S42.291A Other displaced fracture of upper end of right humerus, initial encounter for closed fracture (principal); S50.311A Abrasion of right elbow, initial encounter; M79.661 Pain in right lower leg; J44.9 Chronic obstructive pulmonary disease, unspecified; I11.0 Hypertensive heart disease with heart failure; I50.9 Heart failure, unspecified; G89.29 Other chronic pain; Z87.442 Personal history of urinary calculi; Z90.89 Acquired absence of other organs; Z90.49 Acquired absence of other specified parts of digestive tract; Z72.89 Other problems related to lifestyle; Z88.8 Allergy status to other drugs, medicaments and biological substances; Z91.030 Bee allergy status; Z79.82 Long term (current) use of aspirin; Z79.899 Other long term (current) drug therapy; W19.XXXA Unspecified fall, initial encounter; Y93.89 Activity, other specified; Y92.89 Other specified places as the place of occurrence of the external cause; Y99.8 Other external cause status
CPT/HCPCS: 73060; 73090; 99284

== ENCOUNTER 2021-08-04 10:50 | Outpatient (CLI) | payer BC, MEDICARE ==
[~2021-08-04 10:50] MED LIST changes: +ALBU8.5H17 INH; -ALBU8.5H8 INH; -TOLT4CAP14 PO; +TOLT4CAP28 PO
== END 2021-08-04 23:59 | disposition home or self-care (01) ==
LOC: 64 CT 10:50
PROVIDERS: ATTEND Physician Assistant
DX: S42.201D Unspecified fracture of upper end of right humerus, subsequent encounter for fracture with routine healing (principal); S72.011A Unspecified intracapsular fracture of right femur, initial encounter for closed fracture; X58.XXXA Exposure to other specified factors, initial encounter; Y93.89 Activity, other specified; Y92.89 Other specified places as the place of occurrence of the external cause; Y99.8 Other external cause status; X58.XXXD Exposure to other specified factors, subsequent encounter
CPT/HCPCS: 73200

== ENCOUNTER 2021-10-05 07:56 | Outpatient (CLI) | payer BC, MEDICARE ==
[~2021-10-05] VITALS: Ht 167.6 cm; Wt 122.7 kg
[2021-10-05] MEDS ORDERED: aminophylline 250mg/10ml inj. IV PRN (08:30)
[2021-10-05] MEDS ORDERED: regadenoson 0.4mg/5ml syringe IV ONE (08:30)
[2021-10-05] MEDS ORDERED: atropine 0.1mg/ml 10ml syringe IV PRN (08:30)
[2021-10-05] MEDS ORDERED: normal saline 500ml IV soln 500 ML IV ONE (08:30)
[2021-10-05] MEDS ORDERED: nitroGLYCERIN 0.4mg SUBLingual tab SL PRN (08:30)
[2021-10-05] MEDS ORDERED: metoprolol tartrate 1mg/ml inj IV PRN (08:30)
[2021-10-05 09:30] VITALS: BP 145/88
[2021-10-05 09:36] VITALS: BP 146/70
[2021-10-05 09:37] VITALS: BP 110/63
[2021-10-05 09:38] VITALS: BP 92/65
[2021-10-05 09:39] VITALS: BP 117/80
[2021-10-05 09:40] VITALS: BP 117/74
== END 2021-10-05 23:59 | disposition home or self-care (01) ==
LOC: RAD 07:56
PROVIDERS: ATTEND Internal Medicine Cardiovascular Disease
DX: I34.0 Nonrheumatic mitral (valve) insufficiency (principal); I50.22 Chronic systolic (congestive) heart failure; R06.02 Shortness of breath
CPT/HCPCS: 78452; 93017; 93306; A9500; J2785; J7040

== ENCOUNTER 2021-10-14 10:12 | Outpatient (CLI) | payer BC, MEDICARE | END 2021-10-14 23:59 | disposition home or self-care (01) | LOC: RT 10:12 | PROVIDERS: ATTEND Family Medicine | DX: R94.2 Abnormal results of pulmonary function studies (principal); J44.9 Chronic obstructive pulmonary disease, unspecified | CPT/HCPCS: 71046; 94010; 94727; 94729 ==

== ENCOUNTER 2021-11-19 18:02 | Emergency (ER) | payer BC, MEDICARE ==
[~2021-11-19] VITALS: Ht 167.6 cm; Wt 122.7 kg
[2021-11-19] MEDS ORDERED: glucagon, human recombinant 1mg kit IV ONE (20:00)
[2021-11-19] MEDS ORDERED: fentaNYL/PF 50MCG/1 ML 2ML syringe ONE (21:05)
[2021-11-19] MEDS ORDERED: MIDAZolam 1 MG/ML 5ML VIAL ONE (21:05)
[2021-11-19] MEDS ORDERED: LIDOcaine Viscous 15ml cup ONE (21:05)
[2021-11-19 21:15] VITALS: BP 132/120
[2021-11-19] MEDS ORDERED: proCHLORperazine 10 MG/2 ml inj ONE (21:29)
[2021-11-19 22:10] VITALS: BP 167/99
[2021-11-19 22:20] VITALS: BP 168/100
[2021-11-19 22:30] VITALS: BP 174/109
[2021-11-19 22:40] VITALS: BP 174/105
--- NOTE | 2021-11-19 22:41 | NUR ---
PT BACK FROM SX. STABLE.
[2021-11-19 23:45] VITALS: BP 162/107
== END 2021-11-20 00:38 | disposition home or self-care (01) ==
LOC: ER 18:03
DX: T18.108A Unspecified foreign body in esophagus causing other injury, initial encounter (principal); Z20.822 Contact with and (suspected) exposure to COVID-19; K22.2 Esophageal obstruction; I11.0 Hypertensive heart disease with heart failure; I50.9 Heart failure, unspecified; J44.9 Chronic obstructive pulmonary disease, unspecified; G89.29 Other chronic pain; Z87.442 Personal history of urinary calculi; Z90.89 Acquired absence of other organs; Z90.49 Acquired absence of other specified parts of digestive tract; Z72.89 Other problems related to lifestyle; Z91.030 Bee allergy status; Z88.8 Allergy status to other drugs, medicaments and biological substances; Z79.82 Long term (current) use of aspirin; Z79.899 Other long term (current) drug therapy; X58.XXXA Exposure to other specified factors, initial encounter; Y93.89 Activity, other specified; Y92.89 Other specified places as the place of occurrence of the external cause; Y99.8 Other external cause status
CPT/HCPCS: 43239; 43247; 87635; 96374; 99152; 99153; 99285; C1769; C1773; C9803; J0780; J1610; J2250; J3010; J7040; Z7512; A4620

== ENCOUNTER 2021-12-25 12:17 | Emergency (ER) | payer BC, MEDICARE ==
[~2021-12-25] VITALS: Ht 167.6 cm; Wt 126.4 kg
[2021-12-25 12:51] LABS: BASOPHILS % (AUTO) 0.6 % (0-1); EOSINOPHILS # (AUTO) 0.2 X10'3 (0-0.9); EOSINOPHILS % (AUTO) 3.4 % (0-6); HEMATOCRIT 47.8 % (42.0-52.0); HEMOGLOBIN 16.2 g/dl (14.0-17.9); LYMPHOCYTES # (AUTO) 1.9 X10'3 (1.1-4.8); MEAN CORPUSCULAR HEMOGLOBIN 32.5 PG (27.0-31.0); MEAN CORPUSCULAR HGB CONC 33.9 g/dL (33.0-36.5); MEAN PLATELET VOLUME 6.9 FL (7.4-10.4); MONOCYTES # (AUTO) 0.6 X10'3 (0-0.9); NEUTROPHILS # (AUTO) 3.3 X10'3 (1.8-7.7); PLATELET COUNT 180 X10'3 (140-440); RED BLOOD COUNT 4.99 X10'6 (4.70-6.10); RED CELL DISTRIBUTION WIDTH 14.6 % (11.5-14.5); WHITE BLOOD COUNT 6.1 X10'3 (4.5-11.0)
[2021-12-25 13:14] LABS: ALANINE AMINOTRANSFERASE 24 U/L (12-78); ALBUMIN 3.3 G/DL (3.4-5.0); ALBUMIN/GLOBULIN RATIO 0.9 (1.1-1.5); ALKALINE PHOSPHATASE 81 IU/L (46-116); ANION GAP 7 (8-16); ASPARTATE AMINO TRANSFERASE 13 U/L (10-37); BILIRUBIN,TOTAL 0.5 MG/DL (0.1-1.0); BLOOD UREA NITROGEN 16 MG/DL (7-18); BUN/CREATININE RATIO 8.9 (5.4-32.0); CALCIUM 9.7 MG/DL (8.5-10.1); CHLORIDE 106 MMOL/L (99-107); GLUCOSE 122 MG/DL (70-104); LIPASE 93 U/L (73-393); POTASSIUM 3.2 MMOL/L (3.5-5.1); SODIUM 144 MMOL/L (135-145); TOTAL CARBON DIOXIDE 31.3 MMOL/L (24-32); eGFR 38 ML/MIN
[2021-12-25] MEDS ORDERED: glucagon, human recombinant 1mg kit IV ONE (14:25)
[2021-12-25] MEDS ORDERED: normal saline 1000ml 1,000 ML IV ONE (14:25)
[2021-12-25 15:50] VITALS: BP 135/92
[2021-12-25] MEDS ORDERED: fentaNYL/PF 50MCG/1 ML 2ML syringe ONE (16:01)
[2021-12-25] MEDS ORDERED: LIDOcaine Viscous 15ml cup ONE (16:01)
[2021-12-25] MEDS ORDERED: MIDAZolam 1 MG/ML 5ML VIAL ONE (16:01)
[2021-12-25 16:28] VITALS: BP 155/89
[2021-12-25 16:38] VITALS: BP 147/86
[2021-12-25 16:48] VITALS: BP 153/98
[2021-12-25 16:58] VITALS: BP 159/95
[2021-12-25] MEDS ORDERED: FLUC100T PO (17:51)
[2021-12-25] MEDS ORDERED: OMEP40CA21 PO (17:51)
[2021-12-25] MEDS ORDERED: fluconazole 100mg tablet PO ONE (17:55)
--- NOTE | 2021-12-25 18:09 | NUR ---
PT REPORTS NAUSEA AND GASTRITIS REFLUX. ED MIKEY CORREA MADE AWARE AND RECEIVED ORDER FOR ZOFRAN 4MG IV NOW. ORDER PLACED RECEIVED
[2021-12-25] MEDS ORDERED: ondansetron/PF 4mg/2ml inj IV ONE (18:10)
[2021-12-25 19:04] VITALS: BP 150/150
== END 2021-12-25 19:06 | disposition home or self-care (01) ==
LOC: ER 15:42
DX: K29.70 Gastritis, unspecified, without bleeding (principal); B37.9 Candidiasis, unspecified; R11.2 Nausea with vomiting, unspecified; I12.0 Hypertensive chronic kidney disease with stage 5 chronic kidney disease or end stage renal disease; E11.22 Type 2 diabetes mellitus with diabetic chronic kidney disease; N18.9 Chronic kidney disease, unspecified; E87.6 Hypokalemia; I11.0 Hypertensive heart disease with heart failure; I50.9 Heart failure, unspecified; J44.9 Chronic obstructive pulmonary disease, unspecified; G89.29 Other chronic pain; Z87.442 Personal history of urinary calculi; Z72.89 Other problems related to lifestyle; Z90.49 Acquired absence of other specified parts of digestive tract; Z91.041 Radiographic dye allergy status; Z91.030 Bee allergy status; Z79.82 Long term (current) use of aspirin; Z79.899 Other long term (current) drug therapy
CPT/HCPCS: 36415; 43239; 80053; 83690; 85025; 96361; 96374; 96375; 99152; 99285; J1610; J2250; J2405; J3010; J7030; Z7512; A4620

== ENCOUNTER 2022-02-17 18:45 | Emergency (ER) | payer BC, MEDICARE ==
[~2022-02-17] VITALS: Ht 172.7 cm; Wt 125.0 kg
[2022-02-17 18:51] VITALS: BP 159/99
[2022-02-17 20:25] LABS: BASOPHILS % (AUTO) 0.5 % (0-1); EOSINOPHILS # (AUTO) 0.2 X10'3 (0-0.9); EOSINOPHILS % (AUTO) 2.9 % (0-6); HEMATOCRIT 49.1 % (42.0-52.0); HEMOGLOBIN 16.5 g/dl (14.0-17.9); LYMPHOCYTES # (AUTO) 1.5 X10'3 (1.1-4.8); LYMPHOCYTES % (AUTO) 25.8 % (21-51); MEAN CORPUSCULAR HEMOGLOBIN 30.9 PG (27.0-31.0); MEAN CORPUSCULAR HGB CONC 33.5 g/dL (33.0-36.5); MEAN CORPUSCULAR VOLUME 92.1 FL (78-98); MONOCYTES # (AUTO) 0.6 X10'3 (0-0.9); MONOCYTES % (AUTO) 10.6 % (2-12); NEUTROPHILS # (AUTO) 3.6 X10'3 (1.8-7.7); NEUTROPHILS % (AUTO) 60.2 % (42-75); PLATELET COUNT 210 X10'3 (140-440); RED BLOOD COUNT 5.33 X10'6 (4.70-6.10); RED CELL DISTRIBUTION WIDTH 14.2 % (11.5-14.5); WHITE BLOOD COUNT 5.9 X10'3 (4.5-11.0)
--- NOTE | 2022-02-17 20:30 | NUR ---
unable to obtain urine sample from patient. patient states he is "unable to urinate".
[2022-02-17 20:31] LABS: ALBUMIN 3.6 G/DL (3.4-5.0); ANION GAP 13 (8-16); BILIRUBIN,TOTAL 0.6 MG/DL (0.1-1.0); BLOOD UREA NITROGEN 18 MG/DL (7-18); BUN/CREATININE RATIO 10.6 (5.4-32.0); CALCIUM 9.8 MG/DL (8.5-10.1); CHLORIDE 108 MMOL/L (99-107); GLUCOSE 119 MG/DL (70-104); POTASSIUM 3.5 MMOL/L (3.5-5.1); SODIUM 147 MMOL/L (135-145); TOTAL CARBON DIOXIDE 26.5 MMOL/L (24-32); TOTAL PROTEIN 7.4 G/DL (6.4-8.2); eGFR 40 ML/MIN
[2022-02-17 20:32] LABS: ALANINE AMINOTRANSFERASE 27 U/L (12-78); ALBUMIN/GLOBULIN RATIO 0.9 (1.1-1.5); ALKALINE PHOSPHATASE 75 IU/L (46-116); ASPARTATE AMINO TRANSFERASE 16 U/L (10-37); LIPASE 101 U/L (73-393)
[2022-02-17] MEDS ORDERED: ondansetron 4mg rapidly disintigrating tab PO ONE (21:40)
== END 2022-02-17 23:41 | disposition home or self-care (01) ==
LOC: ER 18:46
DX: T18.128A Food in esophagus causing other injury, initial encounter (principal); I11.9 Hypertensive heart disease without heart failure; K21.9 Gastro-esophageal reflux disease without esophagitis; J44.9 Chronic obstructive pulmonary disease, unspecified; Z87.448 Personal history of other diseases of urinary system; Z88.8 Allergy status to other drugs, medicaments and biological substances; Z79.899 Other long term (current) drug therapy; X58.XXXA Exposure to other specified factors, initial encounter; Y93.89 Activity, other specified; Y92.89 Other specified places as the place of occurrence of the external cause; Y99.8 Other external cause status
CPT/HCPCS: 36415; 80053; 83690; 85025; 99283

== ENCOUNTER 2022-03-27 08:08 | Emergency (ER) | payer BC, MEDICARE ==
[~2022-03-27] VITALS: Ht 172.7 cm; Wt 120.0 kg
[2022-03-27] MEDS ORDERED: ibuprofen 200mg tablet PO ONE (09:35)
--- NOTE | 2022-03-27 10:24 | NUR ---
Motrin given, pt's ankle wrapped with hari wrap, PA changed from crutches to walking boot for pt's comfort and ease of movement.
--- NOTE | 2022-03-27 10:28 | NUR ---
Splint applied, CSM intact, pt calling cab for transport.
[2022-03-27 10:34] VITALS: BP 139/102
== END 2022-03-27 10:35 | disposition home or self-care (01) ==
LOC: ER 08:08
DX: S93.491A Sprain of other ligament of right ankle, initial encounter (principal); S96.911A Strain of unspecified muscle and tendon at ankle and foot level, right foot, initial encounter; I11.0 Hypertensive heart disease with heart failure; J44.9 Chronic obstructive pulmonary disease, unspecified; K21.9 Gastro-esophageal reflux disease without esophagitis; G89.29 Other chronic pain; M54.9 Dorsalgia, unspecified; Z87.442 Personal history of urinary calculi; Z88.8 Allergy status to other drugs, medicaments and biological substances; Z91.030 Bee allergy status; X50.0XXA Overexertion from strenuous movement or load, initial encounter; Y93.89 Activity, other specified; Y92.89 Other specified places as the place of occurrence of the external cause; Y99.8 Other external cause status
CPT/HCPCS: 73610; 73630; 99284

== ENCOUNTER 2022-04-12 12:55 | Emergency (ER) | payer BC, MEDICARE ==
[~2022-04-12] VITALS: Ht 170.2 cm; Wt 125.9 kg
[2022-04-12 13:02] VITALS: BP 124/71
[2022-04-12] MEDS ORDERED: ketorolac trometh. 30mg/ml inj. IM ONE (14:25)
[2022-04-12] MEDS ORDERED: MELO-102 PO (14:32)
== END 2022-04-12 15:06 | disposition home or self-care (01) ==
LOC: ER 12:56
DX: S90.112A Contusion of left great toe without damage to nail, initial encounter (principal); M25.571 Pain in right ankle and joints of right foot; G89.29 Other chronic pain; R53.1 Weakness; W19.XXXA Unspecified fall, initial encounter; Y93.89 Activity, other specified; Y92.89 Other specified places as the place of occurrence of the external cause; Y99.8 Other external cause status
CPT/HCPCS: 73564; 96372; 99283; J1885

== ENCOUNTER 2022-05-09 08:44 | Outpatient (CLI) | payer BC, MEDICARE ==
[~2022-05-09 08:44] MED LIST changes: +MELO-102 PO
== END 2022-05-09 23:59 | disposition home or self-care (01) ==
LOC: RAD 08:44
PROVIDERS: ATTEND Family Medicine
DX: S93.401D Sprain of unspecified ligament of right ankle, subsequent encounter (principal); M19.171 Post-traumatic osteoarthritis, right ankle and foot; M25.471 Effusion, right ankle; M76.61 Achilles tendinitis, right leg; M72.2 Plantar fascial fibromatosis; M47.812 Spondylosis without myelopathy or radiculopathy, cervical region; M50.30 Other cervical disc degeneration, unspecified cervical region; X58.XXXD Exposure to other specified factors, subsequent encounter
CPT/HCPCS: 72040; 73721

== ENCOUNTER 2022-07-13 06:01 | Emergency (ER) | payer BC, MEDICARE ==
[~2022-07-13] VITALS: Ht 172.7 cm; Wt 127.3 kg
[2022-07-13] MEDS ORDERED: acetaminophen 325mg tablet PO ONE (07:15)
[2022-07-13 08:16] LABS: BASOPHILS % (AUTO) 0.2 % (0-1); EOSINOPHILS % (AUTO) 0.2 % (0-6); HEMATOCRIT 46.2 % (42.0-52.0); HEMOGLOBIN 15.7 g/dl (14.0-17.9); LYMPHOCYTES # (AUTO) 1.2 X10'3 (1.1-4.8); LYMPHOCYTES % (AUTO) 8.4 % (21-51); MEAN CORPUSCULAR HEMOGLOBIN 30.5 PG (27.0-31.0); MEAN CORPUSCULAR VOLUME 89.7 FL (78-98); MONOCYTES # (AUTO) 1.7 X10'3 (0-0.9); MONOCYTES % (AUTO) 11.8 % (2-12); NEUTROPHILS # (AUTO) 11.2 X10'3 (1.8-7.7); NEUTROPHILS % (AUTO) 79.4 % (42-75); PLATELET COUNT 149 X10'3 (140-440); RED BLOOD COUNT 5.15 X10'6 (4.70-6.10); RED CELL DISTRIBUTION WIDTH 15.2 % (11.5-14.5); WHITE BLOOD COUNT 14.2 X10'3 (4.5-11.0)
[2022-07-13 08:30] LABS: ALANINE AMINOTRANSFERASE 24 U/L (12-78); ALBUMIN 2.8 G/DL (3.4-5.0); ALBUMIN/GLOBULIN RATIO 0.7 (1.1-1.5); ALKALINE PHOSPHATASE 113 IU/L (46-116); ANION GAP 10 (8-16); ASPARTATE AMINO TRANSFERASE 13 U/L (10-37); BLOOD UREA NITROGEN 20 MG/DL (7-18); BUN/CREATININE RATIO 10.1 (5.4-32.0); CALCIUM 8.5 MG/DL (8.5-10.1); CHLORIDE 106 MMOL/L (99-107); CREATININE 1.98 MG/DL (0.60-1.10); GLUCOSE 126 MG/DL (70-104); POTASSIUM 3.4 MMOL/L (3.5-5.1); SODIUM 142 MMOL/L (135-145); TOTAL CARBON DIOXIDE 26.5 MMOL/L (24-32); TOTAL PROTEIN 6.9 G/DL (6.4-8.2); eGFR 34 ML/MIN
[2022-07-13 08:34] LABS: C-REACTIVE PROTEIN 17.13 MG/DL (0.0-0.5); MAGNESIUM 1.7 MG/DL (1.5-2.4)
[2022-07-13 09:27] LABS: D-DIMER 1.02 MG/L FEU (0-0.50)
[2022-07-13 09:52] LABS: CLARITY,URINE CLOUDY (Clear); COLOR,URINE YELLOW (Yellow); GLUCOSE, URINE NEGATIVE (Neg); KETONES,URINE NEGATIVE (Neg); LEUKOCYTE ESTERASE ,URINE LARGE (Neg); NITRITES, URINE NEGATIVE (Neg); OCCULT BLOOD,URINE LARGE (Neg); PH,URINE 6.5 (4.8-8.0); PROTEIN,URINE 100 mg/dl (Neg)
[2022-07-13 10:21] LABS: UA COLLECTION TYPE URINAL
[2022-07-13 10:22] LABS: BACTERIA,URINE 3+ /HPF (Neg); MUCUS STRANDS FEW /LPF (Neg); RBC,URINE TNTC /HPF (0-2); SQUAMOUS EPITHELIAL CELL,UR FEW /LPF (FEW); WBC,URINE TNTC /HPF (0-4)
[2022-07-13 10:23] LABS: TRANSITIONAL EPI CELLS,URINE FEW /HPF
[2022-07-13] MEDS ORDERED: CefTRIAXone 2gm/D5W 50ml BAG 50 ML IV ONE (12:00)
[2022-07-13] MEDS ORDERED: CEPH250T PO (12:07)
[2022-07-13] MEDS ORDERED: normal saline 1000ML IV soln IVB ONE (12:10)
[2022-07-13 13:28] VITALS: BP 154/68
== END 2022-07-13 13:31 | disposition home or self-care (01) ==
LOC: ER 06:01
DX: N39.0 Urinary tract infection, site not specified (principal); Z20.822 Contact with and (suspected) exposure to COVID-19; R53.1 Weakness; E11.22 Type 2 diabetes mellitus with diabetic chronic kidney disease; N18.9 Chronic kidney disease, unspecified; I13.0 Hypertensive heart and chronic kidney disease with heart failure and stage 1 through stage 4 chronic kidney disease, or unspecified chronic kidney disease; I50.9 Heart failure, unspecified; J44.9 Chronic obstructive pulmonary disease, unspecified; K21.9 Gastro-esophageal reflux disease without esophagitis; Z91.041 Radiographic dye allergy status; Z91.030 Bee allergy status; Z98.890 Other specified postprocedural states; Z90.49 Acquired absence of other specified parts of digestive tract
CPT/HCPCS: 36415; 71045; 80053; 81001; 83605; 83735; 84145; 84484; 85025; 85379; 86140; 87040; 87077; 87088; 87186; 87502; 87503; 87635; 93005; 96365; 99285; C9803; J0696; J7030; J7040

== ENCOUNTER 2022-08-16 16:12 | Outpatient (CLI) | payer BC, MEDICARE ==
[~2022-08-16 16:12] MED LIST changes: +CEPH250T PO
== END 2022-08-16 23:59 | disposition home or self-care (01) ==
LOC: LAB 16:12
PROVIDERS: ATTEND Family Medicine
DX: N39.0 Urinary tract infection, site not specified (principal)
CPT/HCPCS: 87088

== ENCOUNTER 2022-08-23 13:38 | Outpatient (CLI) | payer BC, MEDICARE | END 2022-08-23 23:59 | disposition home or self-care (01) | LOC: RAD 13:38 | PROVIDERS: ATTEND Physician Assistant | DX: R13.14 Dysphagia, pharyngoesophageal phase (principal); K21.9 Gastro-esophageal reflux disease without esophagitis | CPT/HCPCS: 74230 ==

== ENCOUNTER 2022-08-31 13:03 | Outpatient (CLI) | payer BC, MEDICARE | END 2022-08-31 23:59 | disposition home or self-care (01) | LOC: LAB 13:03 | PROVIDERS: ATTEND Family Medicine | DX: N39.0 Urinary tract infection, site not specified (principal) | CPT/HCPCS: 87088 ==

== ENCOUNTER 2022-09-06 04:39 | Inpatient (IN) | payer BC, MEDICARE ==
[~2022-09-06] VITALS: Ht 167.6 cm; Wt 123.6 kg
[2022-09-06 06:18] LABS: CLARITY,URINE CLEAR (Clear); COLOR,URINE YELLOW (Yellow); GLUCOSE, URINE NEGATIVE (Neg); KETONES,URINE NEGATIVE (Neg); LEUKOCYTE ESTERASE ,URINE LARGE (Neg); NITRITES, URINE NEGATIVE (Neg); OCCULT BLOOD,URINE LARGE (Neg); PH,URINE 6.5 (4.8-8.0); PROTEIN,URINE 30 mg/dl (Neg); UROBILINOGEN,URINE 0.2 E.U/dL (0.2-1.0)
[2022-09-06 06:21] LABS: UA COLLECTION TYPE VOIDED
[2022-09-06 06:24] LABS: RBC,URINE 50-100 /HPF (0-2); WBC,URINE TNTC /HPF (0-4)
[2022-09-06 06:25] LABS: BACTERIA,URINE 2+ /HPF (Neg); MUCUS STRANDS NONE SEEN /LPF (Neg); SQUAMOUS EPITHELIAL CELL,UR FEW /LPF (FEW)
[2022-09-06 06:33] LABS: BASOPHILS # (AUTO) 0.1 X10'3 (0-0.2); BASOPHILS % (AUTO) 0.3 % (0-1); EOSINOPHILS % (AUTO) 0.3 % (0-6); HEMATOCRIT 40.6 % (42.0-52.0); HEMOGLOBIN 13.5 g/dl (14.0-17.9); LYMPHOCYTES # (AUTO) 0.9 X10'3 (1.1-4.8); LYMPHOCYTES % (AUTO) 5.9 % (21-51); MEAN CORPUSCULAR HGB CONC 33.2 g/dL (33.0-36.5); MEAN CORPUSCULAR VOLUME 90.2 FL (78-98); MEAN PLATELET VOLUME 6.8 FL (7.4-10.4); MONOCYTES # (AUTO) 1.6 X10'3 (0-0.9); MONOCYTES % (AUTO) 10.1 % (2-12); NEUTROPHILS % (AUTO) 83.4 % (42-75); PLATELET COUNT 212 X10'3 (140-440); RED BLOOD COUNT 4.51 X10'6 (4.70-6.10); RED CELL DISTRIBUTION WIDTH 14.4 % (11.5-14.5); WHITE BLOOD COUNT 15.6 X10'3 (4.5-11.0)
[2022-09-06 06:52] LABS: ALANINE AMINOTRANSFERASE 15 U/L (12-78); ALBUMIN 2.2 G/DL (3.4-5.0); ALBUMIN/GLOBULIN RATIO 0.5 (1.1-1.5); ALKALINE PHOSPHATASE 107 IU/L (46-116); ANION GAP 10 (8-16); ASPARTATE AMINO TRANSFERASE 20 U/L (10-37); BILIRUBIN,TOTAL 0.5 MG/DL (0.1-1.0); BLOOD UREA NITROGEN 32 MG/DL (7-18); CALCIUM 8.1 MG/DL (8.5-10.1); CHLORIDE 105 MMOL/L (99-107); CREATININE 4.01 MG/DL (0.60-1.10); GLUCOSE 116 MG/DL (70-104); SODIUM 138 MMOL/L (135-145); TOTAL CARBON DIOXIDE 23.4 MMOL/L (24-32); TOTAL PROTEIN 6.4 G/DL (6.4-8.2); eGFR 15 ML/MIN
[2022-09-06] MEDS ORDERED: CefTRIAXone/D5W-Rocephin 1gm 50 ML IV ONE (08:05)
[2022-09-06] MEDS ORDERED: ringers solution, lacted 1,000 ML IV ONE ×2 (09:00)
[2022-09-06] MEDS ORDERED: magnesium hydroxide 30ml (MOM) UD suspension PO PRN (10:45)
[2022-09-06] MEDS ORDERED: acetaminophen 325mg tablet PO PRN (10:45)
[2022-09-06] MEDS ORDERED: HYDROcodone/acetaminophen 5mg/325mg tablet PO PRN (10:45)
[2022-09-06] MEDS ORDERED: morphine 2 MG/ML inj. syringe IV PRN ×2 (10:45)
[2022-09-06] MEDS ORDERED: mag hydrox/Alum hydrox/simeth 30ml oral suspension PO PRN (10:45)
[2022-09-06] MEDS ORDERED: ondansetron/PF 4mg/2ml inj IV PRN (10:45)
[2022-09-06] MEDS: normal saline 1000ml 1,000 ML IV SCH ×2 (11:11→21:24)
[2022-09-06] MEDS ORDERED: OMEP40CA21 PO (11:34)
[2022-09-06] MEDS ORDERED: LOSA25TA41 PO (11:34)
[2022-09-06] MEDS ORDERED: FLO0.4C PO (11:34)
[2022-09-06] MEDS ORDERED: MODA200T48 PO (11:34)
[2022-09-06] MEDS ORDERED: CARV6.253 PO (11:34)
[2022-09-06] MEDS ORDERED: OXYC1TAB17 PO (11:34)
[2022-09-06] MEDS ORDERED: GLYC10.7 IH (11:34)
[2022-09-06] MEDS ORDERED: FERR325T34 PO (11:34)
[2022-09-06] MEDS ORDERED: FLUT16SP20 BOTHNARES (11:40)
[2022-09-06] MEDS ORDERED: GABA600T13 PO (11:40)
--- NOTE | 2022-09-06 15:23 | NUR ---
Received patient to room 345A via gurney accompanied by x1 staff. Patient is alert and oriented and c/o burning sensation to penis and also back pain. Will administer analgesic as ordered. Patient belongings placed at bedside table. Patient with right leg brace on and states the leg brace stays on at all times except for baths. Patient oriented to room and call light. Call light placed within patient's reach, bed low and locked, x2 side rails up. Bed alarm on. Will continue to monitor.
[2022-09-06 15:25] VITALS: BP 135/86
[2022-09-06] MEDS ORDERED: albuterol 2.5 MG/3 ML nebule NEB PRN (16:45)
--- NOTE | 2022-09-06 18:34 | NUR ---
Problems reprioritized. Patient report given, questions answered & plan of care reviewed with LORENA Argueta.
[2022-09-06 20:00] VITALS: BP 136/78
[2022-09-06] MEDS: heparin, porcine 5000 units/ml vial SQ SCH (21:23)
[2022-09-06] MEDS: HYDROcodone/acetaminophen 10/325mg tab PO PRN (21:24)
[2022-09-06] MEDS: docusate sod 100mg capsule PO SCH (21:24)
[2022-09-07] VITALS: BP 124/74
[2022-09-07 06:04] LABS: ANION GAP 12 (8-16); BLOOD UREA NITROGEN 32 MG/DL (7-18); BUN/CREATININE RATIO 8.8 (5.4-32.0); CALCIUM 8.6 MG/DL (8.5-10.1); CHLORIDE 105 MMOL/L (99-107); CREATININE 3.63 MG/DL (0.60-1.10); GLUCOSE 102 MG/DL (70-104); POTASSIUM 3.6 MMOL/L (3.5-5.1); SODIUM 140 MMOL/L (135-145); TOTAL CARBON DIOXIDE 22.7 MMOL/L (24-32); eGFR 17 ML/MIN
[2022-09-07 06:07] LABS: BASOPHILS % (AUTO) 0.3 % (0-1); EOSINOPHILS # (AUTO) 0.1 X10'3 (0-0.9); EOSINOPHILS % (AUTO) 1.2 % (0-6); HEMATOCRIT 38.8 % (42.0-52.0); HEMOGLOBIN 12.8 g/dl (14.0-17.9); LYMPHOCYTES # (AUTO) 1.1 X10'3 (1.1-4.8); LYMPHOCYTES % (AUTO) 8.9 % (21-51); MEAN CORPUSCULAR HEMOGLOBIN 29.7 PG (27.0-31.0); MEAN CORPUSCULAR HGB CONC 32.9 g/dL (33.0-36.5); MEAN CORPUSCULAR VOLUME 90.1 FL (78-98); MEAN PLATELET VOLUME 6.9 FL (7.4-10.4); MONOCYTES # (AUTO) 1.4 X10'3 (0-0.9); MONOCYTES % (AUTO) 11.1 % (2-12); NEUTROPHILS # (AUTO) 9.8 X10'3 (1.8-7.7); NEUTROPHILS % (AUTO) 78.5 % (42-75); PLATELET COUNT 189 X10'3 (140-440); RED BLOOD COUNT 4.31 X10'6 (4.70-6.10); RED CELL DISTRIBUTION WIDTH 14.4 % (11.5-14.5); WHITE BLOOD COUNT 12.5 X10'3 (4.5-11.0)
--- NOTE | 2022-09-07 06:36 | NUR ---
Patient in room [facility] 345. I have received report from LORENA Argueta and had the opportunity to ask questions and assume patient care.
[2022-09-07] MEDS ORDERED: oxyCODONE/APAP 10/325mg tablet PO PRN (06:50)
[2022-09-07] MEDS: CefTRIAXone/D5W-Rocephin 1gm 50 ML IV SCH (07:05)
[2022-09-07] MEDS: HYDROcodone/acetaminophen 10/325mg tab PO PRN ×2 (07:05→20:46)
[2022-09-07] MEDS: normal saline 1000ml 1,000 ML IV SCH ×2 (07:05→20:38)
[2022-09-07] MEDS: docusate sod 100mg capsule PO SCH ×2 (07:05→20:39)
[2022-09-07] MEDS: heparin, porcine 5000 units/ml vial SQ SCH ×2 (07:06→20:40)
[2022-09-07] MEDS: Glycopyrrolate/Formoterol Fum (Bevespi Aerosphere Inhaler) IH SCH ×2 (08:00→20:04)
[2022-09-07] MEDS: tamsulosin 0.4mg capsule PO SCH (08:35)
[2022-09-07] MEDS: oxybutynin 5mg tablet PO SCH ×3 (08:35→20:39)
[2022-09-07] MEDS: losartan 25mg tablet PO SCH (08:35)
[2022-09-07] MEDS: carvedilol 6.25mg tablet PO SCH ×2 (08:36→20:39)
[2022-09-07] MEDS: gabapentin 300mg capsule PO SCH (08:36)
[2022-09-07] MEDS: ferrous sulfate 325mg tablet PO SCH ×2 (08:36→20:38)
[2022-09-07] MEDS: multivitamins, therapeutics tablet PO SCH (08:36)
[2022-09-07 08:46] VITALS: BP 132/81
--- NOTE | 2022-09-07 08:47 | NUR ---
Per lab pt has positive BCx from R arm 09/06/22 w/ Gm + Cocci in clusters. LORENA Lyles notified.
[2022-09-07] MEDS: modafinil 100mg tablet PO SCH (09:10)
[2022-09-07] MEDS: vitamin B comp w/Vit. C tab 1 TAB TABLET PO SCH (09:10)
--- NOTE | 2022-09-07 10:49 | NUR ---
Dr. Posadas notified of both patient's BC being positive for gram + cocci in clusters from aerobic bottle. New order received for vanco 1 gm IV daily.
[2022-09-07] MEDS ORDERED: vancomycin inj 1,000 MG in normal saline 250ml IV soln 250 ML IV SCH (10:55)
[2022-09-07 12:00] VITALS: BP 116/55
[2022-09-07] MEDS ORDERED: vancomycin inj 500 MG in normal saline 100ml IV soln 100 ML IV SCH (12:00)
[2022-09-07] MEDS ORDERED: vancomycin/NS 500MG ADD-VANT 100 ML IV SCH (12:00)
--- NOTE | 2022-09-07 18:49 | NUR ---
Patient in room [facility] 345. I have received report from Trupti CARRILLO and had the opportunity to ask questions and assume patient care.
--- NOTE | 2022-09-07 18:51 | NUR ---
Problems reprioritized. Patient report given, questions answered & plan of care reviewed with LORENA ZULETA.
[2022-09-07 20:00] VITALS: BP 117/58
[2022-09-07] MEDS: pantoprazole 40mg Tablet.DR PO SCH (20:39)
[2022-09-07] MEDS: duloxetine 30mg CAPSULE.DR PO SCH (20:39)
[2022-09-08] VITALS: BP 135/75
[2022-09-08] MEDS: HYDROcodone/acetaminophen 10/325mg tab PO PRN ×2 (01:06→09:56)
--- NOTE | 2022-09-08 01:25 | NUR ---
Problems reprioritized. Patient report given, questions answered & plan of care reviewed with Ellie CARRILLO.
--- NOTE | 2022-09-08 01:25 | NUR ---
assumed care of patient resting comfortably at this time. No change in assessment.
--- NOTE | 2022-09-08 01:25 | NUR ---
Assumed care of pt doing well. Resting comfortably.
[2022-09-08] MEDS: normal saline 1000ml 1,000 ML IV SCH ×3 (05:43→20:47)
--- NOTE | 2022-09-08 06:46 | NUR ---
Patient in room [facility] 345. I have received report from Ellie CARRILLO and had the opportunity to ask questions and assume patient care.
--- NOTE | 2022-09-08 06:54 | NUR ---
Problems reprioritized. Patient report given, questions answered & plan of care reviewed with to Pita.
[2022-09-08] MEDS: Glycopyrrolate/Formoterol Fum (Bevespi Aerosphere Inhaler) IH SCH ×2 (07:24→21:00)
[2022-09-08 08:15] LABS: BASOPHILS % (AUTO) 0.2 % (0-1); EOSINOPHILS # (AUTO) 0.3 X10'3 (0-0.9); EOSINOPHILS % (AUTO) 3.8 % (0-6); HEMATOCRIT 36.8 % (42.0-52.0); LYMPHOCYTES # (AUTO) 1.1 X10'3 (1.1-4.8); LYMPHOCYTES % (AUTO) 14.3 % (21-51); MEAN CORPUSCULAR HEMOGLOBIN 29.8 PG (27.0-31.0); MEAN CORPUSCULAR HGB CONC 32.7 g/dL (33.0-36.5); MONOCYTES # (AUTO) 0.9 X10'3 (0-0.9); MONOCYTES % (AUTO) 12.1 % (2-12); NEUTROPHILS # (AUTO) 5.4 X10'3 (1.8-7.7); NEUTROPHILS % (AUTO) 69.6 % (42-75); PLATELET COUNT 190 X10'3 (140-440); RED BLOOD COUNT 4.04 X10'6 (4.70-6.10); RED CELL DISTRIBUTION WIDTH 14.3 % (11.5-14.5); WHITE BLOOD COUNT 7.7 X10'3 (4.5-11.0)
[2022-09-08 08:34] LABS: ALBUMIN 1.9 G/DL (3.4-5.0); ANION GAP 10 (8-16); BLOOD UREA NITROGEN 29 MG/DL (7-18); BUN/CREATININE RATIO 10.2 (5.4-32.0); CALCIUM 8.5 MG/DL (8.5-10.1); CHLORIDE 112 MMOL/L (99-107); CREATININE 2.85 MG/DL (0.60-1.10); GLUCOSE 99 MG/DL (70-104); SODIUM 147 MMOL/L (135-145); TOTAL CARBON DIOXIDE 24.6 MMOL/L (24-32); eGFR 22 ML/MIN
[2022-09-08 08:55] VITALS: BP 101/68
[2022-09-08] MEDS: CefTRIAXone/D5W-Rocephin 1gm 50 ML IV SCH (08:56)
[2022-09-08] MEDS: tamsulosin 0.4mg capsule PO SCH (08:56)
[2022-09-08] MEDS: modafinil 100mg tablet PO SCH (08:56)
[2022-09-08] MEDS: losartan 25mg tablet PO SCH (08:57)
[2022-09-08] MEDS: carvedilol 6.25mg tablet PO SCH ×2 (08:57→20:48)
[2022-09-08] MEDS: ferrous sulfate 325mg tablet PO SCH ×2 (08:57→20:48)
[2022-09-08] MEDS: gabapentin 300mg capsule PO SCH (08:57)
[2022-09-08] MEDS: multivitamins, therapeutics tablet PO SCH (08:57)
[2022-09-08] MEDS: docusate sod 100mg capsule PO SCH ×2 (08:57→20:48)
[2022-09-08] MEDS: oxybutynin 5mg tablet PO SCH ×3 (08:57→20:48)
[2022-09-08] MEDS: pantoprazole 40mg Tablet.DR PO SCH ×2 (08:57→20:48)
[2022-09-08] MEDS: vitamin B comp w/Vit. C tab 1 TAB TABLET PO SCH (08:57)
[2022-09-08] MEDS: heparin, porcine 5000 units/ml vial SQ SCH ×2 (08:59→20:48)
[2022-09-08 12:17] VITALS: BP 106/64
[2022-09-08] MEDS: VANCOMYCIN 750MG IV in NS 250 ML IV SCH (15:42)
--- NOTE | 2022-09-08 18:25 | NUR ---
Problems reprioritized. Patient report given, questions answered & plan of care reviewed with Felix LOUIS.
--- NOTE | 2022-09-08 18:30 | NUR ---
Patient in room ARM[facility] 345. I have received report from Stephanie CARRILLO and had the opportunity to ask questions and assume patient care.
[2022-09-08 19:00] VITALS: BP 141/63
[2022-09-08] MEDS: duloxetine 30mg CAPSULE.DR PO SCH (20:48)
--- NOTE | 2022-09-08 22:23 | NUR ---
Patient does not have any wound pictures in the chart or a wound care consult ordered for his areas of concern. I placed a wound care consult order for those areas and will place pictures of those areas in the chart.
[2022-09-09] VITALS: BP 132/70
[2022-09-09 06:00] VITALS: BP 126/73
--- NOTE | 2022-09-09 06:05 | NUR ---
Patient in room ARM[facility] 345. I have received report from [facility] and had the opportunity to ask questions and assume patient care.
--- NOTE | 2022-09-09 06:06 | NUR ---
Problems reprioritized. Patient report given, questions answered & plan of care reviewed with Heather CARRILLO.
[2022-09-09] MEDS: normal saline 1000ml 1,000 ML IV SCH ×2 (07:18→23:29)
--- NOTE | 2022-09-09 07:19 | NUR ---
reviewed DIRECTOR OF GRADUATE MEDICAL EDUCATION assessment and in agreement.
[2022-09-09] MEDS: HYDROcodone/acetaminophen 10/325mg tab PO PRN (07:23)
[2022-09-09] MEDS: Glycopyrrolate/Formoterol Fum (Bevespi Aerosphere Inhaler) IH SCH ×2 (07:39→21:06)
[2022-09-09 07:42] LABS: BASOPHILS % (AUTO) 0.3 % (0-1); EOSINOPHILS # (AUTO) 0.3 X10'3 (0-0.9); EOSINOPHILS % (AUTO) 4.1 % (0-6); HEMATOCRIT 36.1 % (42.0-52.0); LYMPHOCYTES # (AUTO) 1.2 X10'3 (1.1-4.8); LYMPHOCYTES % (AUTO) 17.3 % (21-51); MEAN CORPUSCULAR HGB CONC 33.3 g/dL (33.0-36.5); MEAN CORPUSCULAR VOLUME 90.1 FL (78-98); MEAN PLATELET VOLUME 7.3 FL (7.4-10.4); MONOCYTES # (AUTO) 0.7 X10'3 (0-0.9); MONOCYTES % (AUTO) 10.7 % (2-12); NEUTROPHILS # (AUTO) 4.5 X10'3 (1.8-7.7); NEUTROPHILS % (AUTO) 67.6 % (42-75); PLATELET COUNT 207 X10'3 (140-440); RED CELL DISTRIBUTION WIDTH 14.3 % (11.5-14.5); WHITE BLOOD COUNT 6.7 X10'3 (4.5-11.0)
[2022-09-09] MEDS: losartan 25mg tablet PO SCH (08:00)
[2022-09-09] MEDS: carvedilol 6.25mg tablet PO SCH ×2 (08:00→20:58)
[2022-09-09 08:03] LABS: ANION GAP 11 (8-16); BLOOD UREA NITROGEN 26 MG/DL (7-18); BUN/CREATININE RATIO 10.7 (5.4-32.0); CHLORIDE 109 MMOL/L (99-107); CREATININE 2.44 MG/DL (0.60-1.10); GLUCOSE 100 MG/DL (70-104); POTASSIUM 3.8 MMOL/L (3.5-5.1); SODIUM 142 MMOL/L (135-145); TOTAL CARBON DIOXIDE 22.4 MMOL/L (24-32)
[2022-09-09 08:04] LABS: CALCIUM 9.2 MG/DL (8.5-10.1); eGFR 26 ML/MIN
[2022-09-09] MEDS: docusate sod 100mg capsule PO SCH ×2 (09:41→20:58)
[2022-09-09] MEDS: CefTRIAXone/D5W-Rocephin 1gm 50 ML IV SCH (09:41)
[2022-09-09] MEDS: oxybutynin 5mg tablet PO SCH ×3 (09:45→20:58)
[2022-09-09] MEDS: tamsulosin 0.4mg capsule PO SCH (09:45)
[2022-09-09] MEDS: ferrous sulfate 325mg tablet PO SCH ×2 (09:45→20:58)
[2022-09-09] MEDS: vitamin B comp w/Vit. C tab 1 TAB TABLET PO SCH (09:46)
[2022-09-09] MEDS: gabapentin 300mg capsule PO SCH (09:46)
[2022-09-09] MEDS: modafinil 100mg tablet PO SCH (09:46)
[2022-09-09] MEDS: pantoprazole 40mg Tablet.DR PO SCH ×2 (09:46→20:58)
[2022-09-09] MEDS: heparin, porcine 5000 units/ml vial SQ SCH ×2 (09:47→20:58)
[2022-09-09] MEDS: multivitamins, therapeutics tablet PO SCH (09:47)
[2022-09-09] MEDS: nystatin 15 GM powder TP SCH ×3 (09:50→21:09)
[2022-09-09 11:00] VITALS: BP 128/59
[2022-09-09] MEDS: VANCOMYCIN 750MG IV in NS 250 ML IV SCH (13:54)
[2022-09-09] MEDS: oxyCODONE/APAP 10/325mg tablet PO PRN (13:55)
[2022-09-09 18:00] VITALS: BP 136/76
--- NOTE | 2022-09-09 18:02 | NUR ---
Problems reprioritized. Patient report given, questions answered & plan of care reviewed with Megan.
--- NOTE | 2022-09-09 18:15 | NUR ---
Patient in room ARM[facility] 345. I have received report from Heather CARRILLO and had the opportunity to ask questions and assume patient care.
--- NOTE | 2022-09-09 20:00 | NUR ---
HERIBERTO documentation: I have reviewed and agree with all interventions, assessments performed and documented by Megan LOUIS. Addendum: 09/10/22 at 0411 by Griselda Kaba RN Amended: Links added.
[2022-09-09] MEDS: duloxetine 30mg CAPSULE.DR PO SCH (20:58)
[2022-09-09 22:00] VITALS: BP 150/72
--- NOTE | 2022-09-10 06:05 | NUR ---
Problems reprioritized. Patient report given, questions answered & plan of care reviewed with Heather CARRILLO.
--- NOTE | 2022-09-10 06:28 | NUR ---
Patient in room [facility] 345. I have received report from [facility] and had the opportunity to ask questions and assume patient care.
[2022-09-10 06:34] VITALS: BP 148/80
[2022-09-10] MEDS: Glycopyrrolate/Formoterol Fum (Bevespi Aerosphere Inhaler) IH SCH ×2 (07:10→19:06)
[2022-09-10 07:27] LABS: BASOPHILS # (AUTO) 0.1 X10'3 (0-0.2); BASOPHILS % (AUTO) 0.7 % (0-1); EOSINOPHILS # (AUTO) 0.2 X10'3 (0-0.9); EOSINOPHILS % (AUTO) 3.1 % (0-6); HEMATOCRIT 36.6 % (42.0-52.0); HEMOGLOBIN 12.3 g/dl (14.0-17.9); MEAN CORPUSCULAR HEMOGLOBIN 29.8 PG (27.0-31.0); MEAN CORPUSCULAR HGB CONC 33.6 g/dL (33.0-36.5); MEAN CORPUSCULAR VOLUME 88.6 FL (78-98); MEAN PLATELET VOLUME 7.1 FL (7.4-10.4); MONOCYTES # (AUTO) 0.9 X10'3 (0-0.9); MONOCYTES % (AUTO) 11.5 % (2-12); NEUTROPHILS # (AUTO) 5.4 X10'3 (1.8-7.7); NEUTROPHILS % (AUTO) 71.7 % (42-75); PLATELET COUNT 222 X10'3 (140-440); RED BLOOD COUNT 4.14 X10'6 (4.70-6.10); RED CELL DISTRIBUTION WIDTH 14.3 % (11.5-14.5); WHITE BLOOD COUNT 7.6 X10'3 (4.5-11.0)
[2022-09-10 07:36] LABS: ALBUMIN 2.1 G/DL (3.4-5.0); ANION GAP 10 (8-16); BLOOD UREA NITROGEN 21 MG/DL (7-18); BUN/CREATININE RATIO 9.9 (5.4-32.0); CALCIUM 8.8 MG/DL (8.5-10.1); CHLORIDE 107 MMOL/L (99-107); CREATININE 2.12 MG/DL (0.60-1.10); GLUCOSE 114 MG/DL (70-104); POTASSIUM 3.8 MMOL/L (3.5-5.1); SODIUM 140 MMOL/L (135-145); TOTAL CARBON DIOXIDE 23.4 MMOL/L (24-32); eGFR 31 ML/MIN
[2022-09-10] MEDS: docusate sod 100mg capsule PO SCH ×2 (08:39→20:23)
[2022-09-10] MEDS: carvedilol 6.25mg tablet PO SCH ×2 (08:39→20:23)
[2022-09-10] MEDS: vitamin B comp w/Vit. C tab 1 TAB TABLET PO SCH (08:40)
[2022-09-10] MEDS: losartan 25mg tablet PO SCH (08:40)
[2022-09-10] MEDS: gabapentin 300mg capsule PO SCH (08:40)
[2022-09-10] MEDS: ferrous sulfate 325mg tablet PO SCH ×2 (08:40→20:22)
[2022-09-10] MEDS: tamsulosin 0.4mg capsule PO SCH (08:40)
[2022-09-10] MEDS: modafinil 100mg tablet PO SCH (08:40)
[2022-09-10] MEDS: oxybutynin 5mg tablet PO SCH ×3 (08:40→20:23)
[2022-09-10] MEDS: heparin, porcine 5000 units/ml vial SQ SCH ×2 (08:41→20:24)
[2022-09-10] MEDS: multivitamins, therapeutics tablet PO SCH (08:41)
[2022-09-10] MEDS: oxyCODONE/APAP 10/325mg tablet PO PRN ×2 (08:42→19:05)
[2022-09-10] MEDS: nystatin 15 GM powder TP SCH ×3 (08:42→20:25)
--- NOTE | 2022-09-10 09:23 | NUR ---
Initial: Pt admitted w/ sepsis secondary to UTI per EMR. Currently on Regular diet w/ avg intake 64% of meals partially meeting needs. Pt can benefit from Ensure Enlive BID to assist w/ meeting needs. LBM 09/06 receiving routine colace. Will continue to monitor. Recs; 1. Continue Regular diet as tolerated 2. Ensure Enlive BIDBD; pending MD verification 3. Bowel care per rx 4. Scaled wts Addendum: 09/10/22 at [address] Amended: Links added.
[2022-09-10 10:00] VITALS: BP 171/90
[2022-09-10] MEDS: pantoprazole 40mg Tablet.DR PO SCH ×2 (10:44→20:26)
[2022-09-10] MEDS ORDERED: VANCOMYCIN LEVEL IV ONE (11:30)
[2022-09-10] MEDS: vancomycin/NS 1 GM ADD-VANTAGE 250 ML IV SCH (13:30)
[2022-09-10 18:00] VITALS: BP 137/85
--- NOTE | 2022-09-10 18:12 | NUR ---
Problems reprioritized. Patient report given, questions answered & plan of care reviewed with
[2022-09-10] MEDS: normal saline 1000ml 1,000 ML IV SCH (19:17)
[2022-09-10] MEDS: duloxetine 30mg CAPSULE.DR PO SCH (20:23)
[2022-09-10 22:00] VITALS: BP 139/78
[2022-09-11] MEDS: oxyCODONE/APAP 10/325mg tablet PO PRN ×3 (01:36→20:00)
[2022-09-11 06:00] VITALS: BP 130/72
[2022-09-11 06:03] LABS: BASOPHILS % (AUTO) 0.4 % (0-1); EOSINOPHILS # (AUTO) 0.2 X10'3 (0-0.9); EOSINOPHILS % (AUTO) 2.2 % (0-6); HEMATOCRIT 36.1 % (42.0-52.0); HEMOGLOBIN 12.1 g/dl (14.0-17.9); LYMPHOCYTES # (AUTO) 1.2 X10'3 (1.1-4.8); LYMPHOCYTES % (AUTO) 13.6 % (21-51); MEAN CORPUSCULAR HEMOGLOBIN 29.5 PG (27.0-31.0); MEAN CORPUSCULAR HGB CONC 33.4 g/dL (33.0-36.5); MEAN CORPUSCULAR VOLUME 88.4 FL (78-98); MEAN PLATELET VOLUME 6.8 FL (7.4-10.4); NEUTROPHILS # (AUTO) 6.4 X10'3 (1.8-7.7); NEUTROPHILS % (AUTO) 72.8 % (42-75); PLATELET COUNT 223 X10'3 (140-440); RED BLOOD COUNT 4.08 X10'6 (4.70-6.10); RED CELL DISTRIBUTION WIDTH 14.3 % (11.5-14.5); WHITE BLOOD COUNT 8.9 X10'3 (4.5-11.0)
[2022-09-11 06:08] LABS: ANION GAP 6 (8-16); BLOOD UREA NITROGEN 19 MG/DL (7-18); CALCIUM 9.1 MG/DL (8.5-10.1); CHLORIDE 108 MMOL/L (99-107); GLUCOSE 112 MG/DL (70-104); POTASSIUM 3.6 MMOL/L (3.5-5.1); SODIUM 141 MMOL/L (135-145); TOTAL CARBON DIOXIDE 26.8 MMOL/L (24-32); eGFR 31 ML/MIN
--- NOTE | 2022-09-11 06:20 | NUR ---
Patient in room [facility] 345. I have received report from Ayana CARRILLO and had the opportunity to ask questions and assume patient care.
--- NOTE | 2022-09-11 06:25 | NUR ---
Patient in room ARM[facility] 345. I have received report from Ayana and had the opportunity to ask questions and assume patient care.
[2022-09-11] MEDS: losartan 25mg tablet PO SCH (07:32)
[2022-09-11] MEDS: carvedilol 6.25mg tablet PO SCH ×2 (07:32→19:58)
[2022-09-11] MEDS: docusate sod 100mg capsule PO SCH ×2 (07:32→20:00)
[2022-09-11] MEDS: ferrous sulfate 325mg tablet PO SCH ×2 (07:33→20:00)
[2022-09-11] MEDS: gabapentin 300mg capsule PO SCH (07:33)
[2022-09-11] MEDS: oxybutynin 5mg tablet PO SCH ×3 (07:41→20:00)
[2022-09-11] MEDS: vitamin B comp w/Vit. C tab 1 TAB TABLET PO SCH (07:41)
[2022-09-11] MEDS: multivitamins, therapeutics tablet PO SCH (07:41)
[2022-09-11] MEDS: pantoprazole 40mg Tablet.DR PO SCH ×2 (07:41→20:00)
[2022-09-11] MEDS: tamsulosin 0.4mg capsule PO SCH (07:42)
[2022-09-11] MEDS: modafinil 100mg tablet PO SCH (07:42)
[2022-09-11] MEDS: heparin, porcine 5000 units/ml vial SQ SCH ×2 (07:46→20:10)
[2022-09-11] MEDS: Glycopyrrolate/Formoterol Fum (Bevespi Aerosphere Inhaler) IH SCH ×2 (07:47→19:52)
[2022-09-11] MEDS: nystatin 15 GM powder TP SCH ×3 (08:57→19:57)
[2022-09-11 10:00] VITALS: BP 123/64
[2022-09-11] MEDS: normal saline 1000ml 1,000 ML IV SCH ×2 (11:52→23:04)
[2022-09-11] MEDS: vancomycin/NS 1 GM ADD-VANTAGE 250 ML IV SCH (14:05)
[2022-09-11] MEDS: acetaminophen 325mg tablet PO PRN ×2 (14:11→23:25)
--- NOTE | 2022-09-11 17:47 | NUR ---
Student documentation: I have reviewed and agree with all interventions, assessments performed and documented by [facility] student.
--- NOTE | 2022-09-11 17:47 | NUR ---
Student Medication Administration: For this medication-pass time frame, all medication were reviewed, dispensed, administered and documented per hospital policy by the [employer] student and Heather Hoffman
[2022-09-11 18:00] VITALS: BP 138/80
--- NOTE | 2022-09-11 18:15 | NUR ---
Patient in room ARM[facility] 345. I have received report from LORENA Romero and had the opportunity to ask questions and assume patient care.
--- NOTE | 2022-09-11 18:15 | NUR ---
Patient in room ARM[facility] 345. I have received report from LORENA Romero and had the opportunity to ask questions and assume patient care.
--- NOTE | 2022-09-11 18:15 | NUR ---
Patient in room ARM[facility] 345. I have received report from LORENA Romero and had the opportunity to ask questions and assume patient care.
--- NOTE | 2022-09-11 18:24 | NUR ---
Problems reprioritized. Patient report given, questions answered & plan of care reviewed with
[2022-09-11] MEDS: duloxetine 30mg CAPSULE.DR PO SCH (19:58)
[2022-09-11 22:00] VITALS: BP 160/81
[2022-09-12 06:00] VITALS: BP 159/85
--- NOTE | 2022-09-12 06:45 | NUR ---
Patient in room ARMANDO 345A. I have received report from LORENA TERRY and had the opportunity to ask questions and assume patient care.
[2022-09-12] MEDS: Glycopyrrolate/Formoterol Fum (Bevespi Aerosphere Inhaler) IH SCH (07:58)
[2022-09-12] MEDS: nystatin 15 GM powder TP SCH (08:00)
[2022-09-12] MEDS: heparin, porcine 5000 units/ml vial SQ SCH (08:00)
[2022-09-12] MEDS: docusate sod 100mg capsule PO SCH (08:00)
[2022-09-12 10:00] VITALS: BP 150/78
[2022-09-12] MEDS: multivitamins, therapeutics tablet PO SCH (10:00)
[2022-09-12] MEDS: carvedilol 6.25mg tablet PO SCH (10:00)
[2022-09-12] MEDS: modafinil 100mg tablet PO SCH (10:00)
[2022-09-12] MEDS: ferrous sulfate 325mg tablet PO SCH (10:00)
[2022-09-12] MEDS: tamsulosin 0.4mg capsule PO SCH (10:00)
[2022-09-12] MEDS: gabapentin 300mg capsule PO SCH (10:00)
[2022-09-12 10:01] VITALS: BP_SYST 148
[2022-09-12] MEDS: oxybutynin 5mg tablet PO SCH (10:01)
[2022-09-12] MEDS: losartan 25mg tablet PO SCH (10:01)
[2022-09-12] MEDS: vitamin B comp w/Vit. C tab 1 TAB TABLET PO SCH (10:01)
[2022-09-12] MEDS: pantoprazole 40mg Tablet.DR PO SCH (10:01)
[2022-09-12] MEDS ORDERED: LINE600T11 PO (14:44)
--- NOTE | 2022-09-12 16:25 | NUR ---
CONTACTED DR GALLARDO TO SEE IF AN EARLIER APPOINTMENT COULD BE MADE, OFFICE WILL CONTACT PATIENT ABOUT AN APPOINTMENT Addendum: 09/12/22 at 1630 by Vale Norton RN Amended: Links added.
--- NOTE | 2022-09-12 17:25 | NUR ---
PATIENT STABLE AND APPROPRIATE FOR DISCHARGE, PICC REMOVED, EDUCATION GIVEN, NEW MEDS E-SCRIPTED TO PREFERRED PHARMACY, ALL BELONGINGS SENT WITH PATIENT, DR MCGRATH MADE WITH DR WOODS ON 10/23/22 AT 1445, DR GALLARDO'S OFFICE ALSO CALLED OFFICE WILL CONTACT PATIENT ABOUT AN APPT, PATIENT TAKEN TO LOBBY BY OWN WHEELCHAIR WHERE WILL TAKE PATIENT HOME
[2022-09-13] MEDS ORDERED: VANCOMYCIN LEVEL IV ONE (13:30)
== END 2022-09-12 17:25 | disposition home health service (06) | DRG 871 ==
LOC: ER 04:39 → ED HOLD 10:45 → SUR 3N 15:10
PROVIDERS: ADMIT Internal Medicine; ATTEND Internal Medicine
PROC: 5A09357 Assistance with Respiratory Ventilation, Less than 24 Consecutive Hours, Continuous Positive Airway Pressure (ICD-10-PCS; 2022-09-07)
PROC: 5A09357 Assistance with Respiratory Ventilation, Less than 24 Consecutive Hours, Continuous Positive Airway Pressure (ICD-10-PCS; 2022-09-11)
PROC: 02HV33Z Insertion of Infusion Device into Superior Vena Cava, Percutaneous Approach (ICD-10-PCS; principal; 2022-09-12)
PROC: B548ZZA Ultrasonography of Superior Vena Cava, Guidance (ICD-10-PCS; 2022-09-12)
DX: A41.1 Sepsis due to other specified staphylococcus (principal); E43 Unspecified severe protein-calorie malnutrition; I13.0 Hypertensive heart and chronic kidney disease with heart failure and stage 1 through stage 4 chronic kidney disease, or unspecified chronic kidney disease; N17.9 Acute kidney failure, unspecified; N39.0 Urinary tract infection, site not specified; Z68.41 Body mass index [BMI] 40.0-44.9, adult; R65.20 Severe sepsis without septic shock; E66.01 Morbid (severe) obesity due to excess calories; I50.9 Heart failure, unspecified; J44.9 Chronic obstructive pulmonary disease, unspecified; G47.30 Sleep apnea, unspecified; G89.29 Other chronic pain; B95.7 Other staphylococcus as the cause of diseases classified elsewhere; K21.9 Gastro-esophageal reflux disease without esophagitis; R31.9 Hematuria, unspecified; M54.9 Dorsalgia, unspecified; N18.30 Chronic kidney disease, stage 3 unspecified; N40.0 Benign prostatic hyperplasia without lower urinary tract symptoms; Z79.899 Other long term (current) drug therapy; Z87.442 Personal history of urinary calculi; Z87.440 Personal history of urinary (tract) infections; Z87.891 Personal history of nicotine dependence; Z90.49 Acquired absence of other specified parts of digestive tract; Z91.030 Bee allergy status; Z91.041 Radiographic dye allergy status; Z83.3 Family history of diabetes mellitus; Z82.3 Family history of stroke; Z80.9 Family history of malignant neoplasm, unspecified; Z99.3 Dependence on wheelchair
CPT/HCPCS: 36415; 36569; 71045; 73110; 76770; 76942; 80048; 80053; 81001; 83605; 83880; 84145; 85025; 87040; 87077; 87088; 87186; 94640; 94760; 99285; A4349; A4649; A6212; A6223; A6449; C1751; G0378; J0696; J1644; J2270; J3370; J3490; J7030; J7050; J7120

== ENCOUNTER 2022-10-20 08:32 | Inpatient (IN) | payer BC, MEDICARE ==
[~2022-10-20] VITALS: Ht 170.2 cm; Wt 127.3 kg
[~2022-10-20 08:32] MED LIST changes: -ARMO200T4 PO; -ASPI-1264 PO; -BUDE10.2 INH; -CALC250T2 PO; -CARV3.122 PO; +CARV6.253 PO; -CEPH250T PO; -DIAZ5TAB22 PO; -DOCU-150 PO; +FERR325T34 PO; +FLUT16SP20 BOTHNARES; -FLUT16SP26 BOTHNARES; -GABA300C PO; +GABA600T13 PO; +GLYC10.7 IH; -IRON PO; +LOSA25TA41 PO; -LOSA25TA96 PO; -MELO-102 PO; +MODA200T48 PO; -OMEG-79 PO; +OMEP40CA21 PO; -ONDA8TAB6 PO; -OXYC-138 PO; +OXYC1TAB17 PO; -PANT-47 PO; -VITAMIN D3 PO; -oxygen
[2022-10-20 09:39] LABS: BASOPHILS % (AUTO) 0.2 % (0-1); EOSINOPHILS % (AUTO) 0.7 % (0-6); HEMATOCRIT 42.5 % (42.0-52.0); HEMOGLOBIN 13.9 g/dl (14.0-17.9); LYMPHOCYTES # (AUTO) 0.3 X10'3 (1.1-4.8); LYMPHOCYTES % (AUTO) 3.8 % (21-51); MEAN CORPUSCULAR HEMOGLOBIN 29.4 PG (27.0-31.0); MEAN CORPUSCULAR HGB CONC 32.7 g/dL (33.0-36.5); MEAN CORPUSCULAR VOLUME 90.1 FL (78-98); MEAN PLATELET VOLUME 6.6 FL (7.4-10.4); MONOCYTES # (AUTO) 0.7 X10'3 (0-0.9); MONOCYTES % (AUTO) 9.8 % (2-12); NEUTROPHILS # (AUTO) 6.4 X10'3 (1.8-7.7); NEUTROPHILS % (AUTO) 85.5 % (42-75); PLATELET COUNT 173 X10'3 (140-440); RED BLOOD COUNT 4.72 X10'6 (4.70-6.10); RED CELL DISTRIBUTION WIDTH 16.1 % (11.5-14.5); WHITE BLOOD COUNT 7.5 X10'3 (4.5-11.0)
[2022-10-20 09:56] LABS: ALANINE AMINOTRANSFERASE 16 U/L (12-78); ALBUMIN 2.8 G/DL (3.4-5.0); ALBUMIN/GLOBULIN RATIO 0.6 (1.1-1.5); ALKALINE PHOSPHATASE 139 IU/L (46-116); ANION GAP 8 (8-16); ASPARTATE AMINO TRANSFERASE 17 U/L (10-37); BILIRUBIN,TOTAL 0.4 MG/DL (0.1-1.0); BLOOD UREA NITROGEN 23 MG/DL (7-18); BUN/CREATININE RATIO 8.7 (5.4-32.0); CALCIUM 9.6 MG/DL (8.5-10.1); CHLORIDE 107 MMOL/L (99-107); CREATININE 2.64 MG/DL (0.60-1.10); GLUCOSE 136 MG/DL (70-104); POTASSIUM 3.7 MMOL/L (3.5-5.1); SODIUM 140 MMOL/L (135-145); TOTAL CARBON DIOXIDE 24.7 MMOL/L (24-32); TOTAL PROTEIN 7.7 G/DL (6.4-8.2); eGFR 24 ML/MIN
[2022-10-20] MEDS ORDERED: dexamethasone sod phosphate 10mg/ml inj IV STA (10:31)
[2022-10-20] MEDS ORDERED: ondansetron/PF 4mg/2ml inj IV PRN (11:10)
[2022-10-20] MEDS ORDERED: mag hydrox/Alum hydrox/simeth 30ml oral suspension PO PRN (11:10)
[2022-10-20] MEDS ORDERED: normal saline 1000ml 1,000 ML IV SCH (11:10)
[2022-10-20] MEDS ORDERED: magnesium hydroxide 30ml (MOM) UD suspension PO PRN (11:10)
[2022-10-20] MEDS ORDERED: acetaminophen 325mg tablet PO PRN (11:10)
[2022-10-20 12:58] VITALS: BP 100/75
[2022-10-20] MEDS: dexamethasone 4mg/ml inj IV SCH ×2 (14:33→20:00)
[2022-10-20 14:45] VITALS: BP 136/75
--- NOTE | 2022-10-20 17:39 | NUR ---
paged Dr. Harman re: FYI pt's D-dimer was 1.0 in ED. Did you want to do CTA?
--- NOTE | 2022-10-20 18:22 | NUR ---
Problems reprioritized. Patient report given, questions answered & plan of care reviewed with LORENA Rousseau.
[2022-10-20] MEDS ORDERED: CLOT15CR35 TOP (18:59)
[2022-10-20] MEDS: docusate sod 100mg capsule PO SCH (20:00)
[2022-10-20] MEDS: enoxaparin 30mg/0.3ml syringe SQ SCH (22:57)
[2022-10-21] MEDS: dexamethasone 4mg/ml inj IV SCH ×4 (05:36→21:50)
--- NOTE | 2022-10-21 07:45 | NUR ---
PT REQUESTS OXYCODONE 10MG (HOME MED) FOR PAIN. PAGED DR. PAYNE
[2022-10-21 08:00] VITALS: BP 146/92
[2022-10-21 08:06] LABS: BASOPHILS % (AUTO) 0.1 % (0-1); EOSINOPHILS % (AUTO) 0 % (0-6); HEMATOCRIT 41.6 % (42.0-52.0); HEMOGLOBIN 13.5 g/dl (14.0-17.9); LYMPHOCYTES # (AUTO) 0.8 X10'3 (1.1-4.8); MEAN CORPUSCULAR HEMOGLOBIN 29.6 PG (27.0-31.0); MEAN CORPUSCULAR HGB CONC 32.5 g/dL (33.0-36.5); MEAN CORPUSCULAR VOLUME 91.3 FL (78-98); MEAN PLATELET VOLUME 6.4 FL (7.4-10.4); MONOCYTES # (AUTO) 0.4 X10'3 (0-0.9); NEUTROPHILS # (AUTO) 4.5 X10'3 (1.8-7.7); NEUTROPHILS % (AUTO) 78.9 % (42-75); PLATELET COUNT 161 X10'3 (140-440); RED BLOOD COUNT 4.55 X10'6 (4.70-6.10); RED CELL DISTRIBUTION WIDTH 16.3 % (11.5-14.5); WHITE BLOOD COUNT 5.7 X10'3 (4.5-11.0)
[2022-10-21 08:37] LABS: ALBUMIN 2.4 G/DL (3.4-5.0); ANION GAP 11 (8-16); BLOOD UREA NITROGEN 27 MG/DL (7-18); BUN/CREATININE RATIO 11.3 (5.4-32.0); CALCIUM 9.3 MG/DL (8.5-10.1); CHLORIDE 106 MMOL/L (99-107); CREATININE 2.38 MG/DL (0.60-1.10); GLUCOSE 131 MG/DL (70-104); POTASSIUM 3.8 MMOL/L (3.5-5.1); SODIUM 139 MMOL/L (135-145); TOTAL CARBON DIOXIDE 22.4 MMOL/L (24-32); eGFR 27 ML/MIN
--- NOTE | 2022-10-21 08:43 | NUR ---
PAGED AGAIN DR. PAYNE. "GOOD MORNING. ROOM 3008 ASKS FOR OXYCODONE 10MG/HOME MED FOR PAIN. TNKS"
[2022-10-21] MEDS: oxyCODONE/APAP 10/325mg tablet PO PRN ×2 (10:07→21:50)
[2022-10-21] MEDS: docusate sod 100mg capsule PO SCH ×2 (10:08→20:00)
[2022-10-21] MEDS: enoxaparin 30mg/0.3ml syringe SQ SCH ×2 (10:08→21:49)
[2022-10-21] MEDS: losartan 25mg tablet PO SCH (10:09)
[2022-10-21] MEDS: carvedilol 6.25mg tablet PO SCH ×2 (10:09→21:50)
[2022-10-21 12:30] VITALS: BP 166/92
[2022-10-21] MEDS: vitamin B comp w/Vit. C tab 1 TAB TABLET PO SCH (12:39)
[2022-10-21] MEDS: multivitamins, therapeutics tablet PO SCH (12:39)
[2022-10-21] MEDS: modafinil 100mg tablet PO SCH (12:39)
[2022-10-21] MEDS: tolterodine 2mg SR capsule (24hr) PO SCH (12:40)
[2022-10-21] MEDS ORDERED: albuterol 2.5 MG/3 ML nebule NEB PRN (14:00)
[2022-10-21] MEDS: GLYCOPYRROLATE IH SCH (20:00)
[2022-10-21] MEDS: FORMOTEROL FUM IH SCH (20:00)
[2022-10-21] MEDS ORDERED: tamsulosin 0.4mg capsule PO SCH (21:00)
[2022-10-21] MEDS ORDERED: duloxetine 30mg CAPSULE.DR PO SCH (21:00)
[2022-10-21] MEDS ORDERED: gabapentin 300mg capsule PO SCH (21:00)
[2022-10-21] MEDS: ferrous sulfate 325mg tablet PO SCH (21:50)
[2022-10-22] MEDS: dexamethasone 4mg/ml inj IV SCH ×2 (02:00→09:07)
[2022-10-22 06:00] VITALS: BP 139/94
[2022-10-22 06:43] LABS: BASOPHILS % (AUTO) 0.1 % (0-1); EOSINOPHILS % (AUTO) 0 % (0-6); HEMATOCRIT 40.5 % (42.0-52.0); HEMOGLOBIN 13.2 g/dl (14.0-17.9); LYMPHOCYTES # (AUTO) 0.8 X10'3 (1.1-4.8); LYMPHOCYTES % (AUTO) 7.2 % (21-51); MEAN CORPUSCULAR HEMOGLOBIN 29.3 PG (27.0-31.0); MEAN CORPUSCULAR HGB CONC 32.6 g/dL (33.0-36.5); MEAN CORPUSCULAR VOLUME 90.1 FL (78-98); MEAN PLATELET VOLUME 6.8 FL (7.4-10.4); MONOCYTES # (AUTO) 0.7 X10'3 (0-0.9); MONOCYTES % (AUTO) 5.7 % (2-12); NEUTROPHILS # (AUTO) 9.9 X10'3 (1.8-7.7); PLATELET COUNT 194 X10'3 (140-440); RED CELL DISTRIBUTION WIDTH 16.3 % (11.5-14.5); WHITE BLOOD COUNT 11.4 X10'3 (4.5-11.0)
[2022-10-22] MEDS ORDERED: pantoprazole 40mg Tablet.DR PO SCH (07:30)
[2022-10-22] MEDS: docusate sod 100mg capsule PO SCH (08:00)
[2022-10-22] MEDS: FORMOTEROL FUM IH SCH (08:00)
[2022-10-22] MEDS: GLYCOPYRROLATE IH SCH (08:00)
[2022-10-22 08:02] LABS: ALBUMIN 2.5 G/DL (3.4-5.0); ANION GAP 11 (8-16); BLOOD UREA NITROGEN 31 MG/DL (7-18); CALCIUM 9.1 MG/DL (8.5-10.1); CHLORIDE 105 MMOL/L (99-107); CREATININE 2.22 MG/DL (0.60-1.10); GLUCOSE 123 MG/DL (70-104); POTASSIUM 4.1 MMOL/L (3.5-5.1); SODIUM 141 MMOL/L (135-145); TOTAL CARBON DIOXIDE 25.4 MMOL/L (24-32); eGFR 30 ML/MIN
[2022-10-22] MEDS: losartan 25mg tablet PO SCH (09:07)
[2022-10-22] MEDS: enoxaparin 30mg/0.3ml syringe SQ SCH (09:08)
[2022-10-22] MEDS: tolterodine 2mg SR capsule (24hr) PO SCH (09:08)
[2022-10-22] MEDS: ferrous sulfate 325mg tablet PO SCH (09:09)
[2022-10-22] MEDS: vitamin B comp w/Vit. C tab 1 TAB TABLET PO SCH (09:09)
[2022-10-22] MEDS: modafinil 100mg tablet PO SCH (09:10)
[2022-10-22] MEDS: multivitamins, therapeutics tablet PO SCH (09:11)
[2022-10-22] MEDS: carvedilol 6.25mg tablet PO SCH (09:11)
[2022-10-22] MEDS: oxyCODONE/APAP 10/325mg tablet PO PRN (09:18)
[2022-10-22 10:13] VITALS: BP 127/94
[2022-10-22] MEDS ORDERED: DEC4T PO (11:58)
--- NOTE | 2022-10-22 13:35 | NUR ---
pt discharged in stable condition to home with significant other. iv removed tip intact no complications. belongings sent with pt. pt educated on discharge follow up/quarantine. All questions reviewed/answered.
== END 2022-10-22 13:36 | disposition home or self-care (01) | DRG 177 ==
LOC: ER 08:33 → PCU 3S 11:11
PROVIDERS: ADMIT Family Medicine; ATTEND Family Medicine
DX: U07.1 COVID-19 (principal); J96.20 Acute and chronic respiratory failure, unspecified whether with hypoxia or hypercapnia; I13.0 Hypertensive heart and chronic kidney disease with heart failure and stage 1 through stage 4 chronic kidney disease, or unspecified chronic kidney disease; N18.4 Chronic kidney disease, stage 4 (severe); Z68.41 Body mass index [BMI] 40.0-44.9, adult; A52.16 Charcot's arthropathy (tabetic); E66.01 Morbid (severe) obesity due to excess calories; F41.9 Anxiety disorder, unspecified; G47.30 Sleep apnea, unspecified; G62.9 Polyneuropathy, unspecified; K21.9 Gastro-esophageal reflux disease without esophagitis; M54.9 Dorsalgia, unspecified; R00.0 Tachycardia, unspecified; G89.4 Chronic pain syndrome; I50.9 Heart failure, unspecified; J44.9 Chronic obstructive pulmonary disease, unspecified; N40.0 Benign prostatic hyperplasia without lower urinary tract symptoms; Z83.3 Family history of diabetes mellitus; Z87.442 Personal history of urinary calculi; Z90.49 Acquired absence of other specified parts of digestive tract; Z99.81 Dependence on supplemental oxygen; Z91.030 Bee allergy status; Z91.041 Radiographic dye allergy status; Z82.3 Family history of stroke; Z79.899 Other long term (current) drug therapy
CPT/HCPCS: 36415; 71045; 80048; 80053; 83605; 83880; 84145; 85025; 85379; 87040; 87502; 87503; 87635; 93005; 99285; A4349; C9803; G0378; J1100; J1650; J7030

== ENCOUNTER 2023-03-12 18:03 | Inpatient (IN) | payer BC, MEDICARE ==
[~2023-03-12] VITALS: Ht 172.7 cm; Wt 100.0 kg
[~2023-03-12 18:03] MED LIST changes: +CLOT15CR35 TOP
[2023-03-12] MEDS ORDERED: acetaminophen 325mg tablet PO STA (18:22)
[2023-03-12] MEDS ORDERED: CefTRIAXone 2gm/D5W 50ml BAG 50 ML IV ONE ×2 (18:25→19:40)
[2023-03-12] MEDS ORDERED: normal saline 1000ML IV soln IV ONE (18:25)
[2023-03-12 18:54] LABS: BASOPHILS % (AUTO) 0.1 % (0-1); EOSINOPHILS % (AUTO) 0.2 % (0-6); HEMATOCRIT 43.4 % (42.0-52.0); HEMOGLOBIN 13.9 g/dl (14.0-17.9); MEAN CORPUSCULAR HEMOGLOBIN 27.8 PG (27.0-31.0); MEAN CORPUSCULAR HGB CONC 32.1 g/dL (33.0-36.5); MEAN CORPUSCULAR VOLUME 86.6 FL (78-98); MEAN PLATELET VOLUME 6.4 FL (7.4-10.4); MONOCYTES # (AUTO) 1.3 X10'3 (0-0.9); MONOCYTES % (AUTO) 9.6 % (2-12); NEUTROPHILS # (AUTO) 11.5 X10'3 (1.8-7.7); NEUTROPHILS % (AUTO) 83.1 % (42-75); PLATELET COUNT 285 X10'3 (140-440); RED BLOOD COUNT 5.01 X10'6 (4.70-6.10); RED CELL DISTRIBUTION WIDTH 15.5 % (11.5-14.5); WHITE BLOOD COUNT 13.9 X10'3 (4.5-11.0)
[2023-03-12 19:08] LABS: ALANINE AMINOTRANSFERASE 8 U/L (12-78); ALBUMIN 2.4 G/DL (3.4-5.0); ALBUMIN/GLOBULIN RATIO 0.5 (1.1-1.5); ALKALINE PHOSPHATASE 114 IU/L (46-116); ANION GAP 10 (8-16); ASPARTATE AMINO TRANSFERASE 5 U/L (10-37); BILIRUBIN,TOTAL 0.5 MG/DL (0.1-1.0); BLOOD UREA NITROGEN 48 MG/DL (7-18); BUN/CREATININE RATIO 10.7 (10.0-20.0); CALCIUM 9.2 MG/DL (8.5-10.1); CHLORIDE 103 MMOL/L (99-107); CREATININE 4.47 MG/DL (0.60-1.10); GLUCOSE 113 MG/DL (70-104); MAGNESIUM 2.1 MG/DL (1.5-2.4); POTASSIUM 4.2 MMOL/L (3.5-5.1); SODIUM 134 MMOL/L (135-145); TOTAL PROTEIN 7.4 G/DL (6.4-8.2); eGFR 13 ML/MIN
[2023-03-12] MEDS ORDERED: morphine 2 MG/ML inj. syringe IV PRN ×2 (19:40)
[2023-03-12] MEDS ORDERED: ondansetron/PF 4mg/2ml inj IV PRN (19:40)
[2023-03-12] MEDS ORDERED: acetaminophen 325mg tablet PO PRN (19:40)
[2023-03-12] MEDS ORDERED: mag hydrox/Alum hydrox/simeth 30ml oral suspension PO PRN (19:40)
[2023-03-12] MEDS: normal saline 1000ml 1,000 ML IV SCH (19:40)
[2023-03-12] MEDS ORDERED: magnesium hydroxide 30ml (MOM) UD suspension PO PRN (19:40)
[2023-03-12] MEDS: docusate sod 100mg capsule PO SCH (20:00)
[2023-03-12 20:28] LABS: UA COLLECTION TYPE STRAIGHT CATH
[2023-03-12 20:30] LABS: COLOR,URINE YELLOW (Yellow)
[2023-03-12 20:31] LABS: CLARITY,URINE TURBID (Clear); GLUCOSE, URINE NEGATIVE (Neg); KETONES,URINE TRACE mg/dl (Neg); NITRITES, URINE NEGATIVE (Neg); OCCULT BLOOD,URINE LARGE (Neg); PH,URINE 6.5 (4.8-8.0); PROTEIN,URINE 300 mg/dl (Neg)
[2023-03-12 20:32] LABS: LEUKOCYTE ESTERASE ,URINE LARGE (Neg); UROBILINOGEN,URINE 0.2 E.U/dL (0.2-1.0)
[2023-03-12 20:34] LABS: BACTERIA,URINE 2+ /HPF (Neg); MUCUS STRANDS FEW /LPF (Neg); SQUAMOUS EPITHELIAL CELL,UR FEW /LPF (FEW); WBC CLUMPS,URINE MANY /HPF (NEGATIVE); WBC,URINE TNTC /HPF (0-4)
[2023-03-12 20:36] LABS: TRANSITIONAL EPI CELLS,URINE FEW /HPF
[2023-03-12] MEDS ORDERED: DICL100G30 TOP (21:59)
[2023-03-12] MEDS ORDERED: ALBU2.5V10 NEB (21:59)
[2023-03-12 22:00] VITALS: BP 92/50
[2023-03-12] MEDS: heparin, porcine 5000 units/ml vial SQ SCH (22:47)
[2023-03-13] MEDS ORDERED: albuterol 2.5 MG/3 ML nebule NEB PRN (00:05)
[2023-03-13] MEDS: normal saline 1000ml 1,000 ML IV SCH ×2 (01:00→12:10)
[2023-03-13 05:09] LABS: BASOPHILS # (AUTO) 0.1 X10'3 (0-0.2); BASOPHILS % (AUTO) 0.6 % (0-1); EOSINOPHILS % (AUTO) 0.2 % (0-6); HEMATOCRIT 38.4 % (42.0-52.0); HEMOGLOBIN 12.4 g/dl (14.0-17.9); LYMPHOCYTES % (AUTO) 8.3 % (21-51); MEAN CORPUSCULAR HEMOGLOBIN 27.7 PG (27.0-31.0); MEAN CORPUSCULAR HGB CONC 32.3 g/dL (33.0-36.5); MEAN CORPUSCULAR VOLUME 85.8 FL (78-98); MEAN PLATELET VOLUME 6.4 FL (7.4-10.4); MONOCYTES # (AUTO) 1.4 X10'3 (0-0.9); MONOCYTES % (AUTO) 11.3 % (2-12); NEUTROPHILS # (AUTO) 9.6 X10'3 (1.8-7.7); NEUTROPHILS % (AUTO) 79.6 % (42-75); PLATELET COUNT 253 X10'3 (140-440); RED BLOOD COUNT 4.47 X10'6 (4.70-6.10); RED CELL DISTRIBUTION WIDTH 15.7 % (11.5-14.5)
[2023-03-13 05:23] LABS: ALBUMIN 1.9 G/DL (3.4-5.0); ANION GAP 9 (8-16); BLOOD UREA NITROGEN 42 MG/DL (7-18); BUN/CREATININE RATIO 11.4 (10.0-20.0); CALCIUM 8.4 MG/DL (8.5-10.1); CHLORIDE 109 MMOL/L (99-107); CREATININE 3.68 MG/DL (0.60-1.10); GLUCOSE 97 MG/DL (70-104); POTASSIUM 3.8 MMOL/L (3.5-5.1); SODIUM 138 MMOL/L (135-145); TOTAL CARBON DIOXIDE 20.1 MMOL/L (24-32); eGFR 16 ML/MIN
[2023-03-13 06:00] VITALS: BP 131/68
--- NOTE | 2023-03-13 06:45 | NUR ---
Problems reprioritized. Received report given, questions answered & plan of care reviewed from LORENA Sanchez.
[2023-03-13] MEDS: GLYCOPYRROLATE IH SCH ×2 (08:00→08:50)
[2023-03-13] MEDS: FORMOTEROL FUM IH SCH ×2 (08:00→08:50)
[2023-03-13] MEDS ORDERED: VIT C NO 3 PO SCH (08:00)
[2023-03-13] MEDS ORDERED: VITAMIN B COMPLEX PO SCH (08:00)
[2023-03-13] MEDS: heparin, porcine 5000 units/ml vial SQ SCH ×2 (08:01→21:35)
[2023-03-13] MEDS: tamsulosin 0.4mg capsule PO SCH (08:05)
[2023-03-13] MEDS: gabapentin 300mg capsule PO SCH (08:05)
[2023-03-13] MEDS: docusate sod 100mg capsule PO SCH ×2 (08:05→21:36)
[2023-03-13] MEDS: duloxetine 30mg CAPSULE.DR PO SCH (08:06)
[2023-03-13] MEDS: ferrous sulfate 325mg tablet PO SCH ×2 (08:06→21:35)
[2023-03-13] MEDS: oxybutynin 5mg tablet PO SCH ×3 (08:06→21:36)
[2023-03-13] MEDS: multivitamins, therapeutics tablet PO SCH (08:07)
[2023-03-13] MEDS: modafinil 100mg tablet PO SCH (08:08)
[2023-03-13] MEDS: pantoprazole 40mg Tablet.DR PO SCH (08:08)
[2023-03-13 10:00] VITALS: BP 115/65
[2023-03-13] MEDS: oxyCODONE/APAP 10/325mg tablet PO PRN ×2 (17:09→18:09)
--- NOTE | 2023-03-13 18:00 | NUR ---
I have reviewed and agree with interventions, assessments, and documentation by Archana Nichole LVN.
--- NOTE | 2023-03-13 19:19 | NUR ---
Problems reprioritized. Report given, questions answered & plan of care reviewed from LORENA Strong.
[2023-03-13] MEDS: CefTRIAXone/D5W-Rocephin 1gm 50 ML IV SCH (21:42)
[2023-03-13 22:00] VITALS: BP 105/70
[2023-03-14 02:00] VITALS: BP 113/52
[2023-03-14] MEDS: normal saline 1000ml 1,000 ML IV SCH ×3 (03:42→15:26)
[2023-03-14 04:55] LABS: BASOPHILS % (AUTO) 0.2 % (0-1); EOSINOPHILS % (AUTO) 0.3 % (0-6); HEMATOCRIT 36.8 % (42.0-52.0); HEMOGLOBIN 11.8 g/dl (14.0-17.9); LYMPHOCYTES # (AUTO) 1.3 X10'3 (1.1-4.8); LYMPHOCYTES % (AUTO) 11.1 % (21-51); MEAN CORPUSCULAR HEMOGLOBIN 27.5 PG (27.0-31.0); MEAN CORPUSCULAR VOLUME 85.7 FL (78-98); MEAN PLATELET VOLUME 6.5 FL (7.4-10.4); MONOCYTES # (AUTO) 1.5 X10'3 (0-0.9); MONOCYTES % (AUTO) 12.5 % (2-12); NEUTROPHILS % (AUTO) 75.9 % (42-75); PLATELET COUNT 249 X10'3 (140-440); RED BLOOD COUNT 4.29 X10'6 (4.70-6.10); RED CELL DISTRIBUTION WIDTH 15.4 % (11.5-14.5); WHITE BLOOD COUNT 11.9 X10'3 (4.5-11.0)
[2023-03-14 05:03] LABS: ALBUMIN 1.8 G/DL (3.4-5.0); ANION GAP 12 (8-16); BLOOD UREA NITROGEN 31 MG/DL (7-18); CALCIUM 8.4 MG/DL (8.5-10.1); CHLORIDE 105 MMOL/L (99-107); CREATININE 2.83 MG/DL (0.60-1.10); GLUCOSE 97 MG/DL (70-104); POTASSIUM 3.2 MMOL/L (3.5-5.1); SODIUM 135 MMOL/L (135-145); TOTAL CARBON DIOXIDE 17.6 MMOL/L (24-32); eGFR 22 ML/MIN
[2023-03-14 07:00] VITALS: BP 110/60
[2023-03-14] MEDS: modafinil 100mg tablet PO SCH (07:35)
[2023-03-14] MEDS: docusate sod 100mg capsule PO SCH ×2 (07:37→21:02)
[2023-03-14] MEDS: multivitamins, therapeutics tablet PO SCH (07:37)
[2023-03-14] MEDS: ferrous sulfate 325mg tablet PO SCH ×2 (07:37→21:02)
[2023-03-14] MEDS: gabapentin 300mg capsule PO SCH (07:38)
[2023-03-14] MEDS: heparin, porcine 5000 units/ml vial SQ SCH ×2 (07:38→21:02)
[2023-03-14] MEDS: duloxetine 30mg CAPSULE.DR PO SCH (07:39)
[2023-03-14] MEDS: tamsulosin 0.4mg capsule PO SCH (07:39)
[2023-03-14] MEDS: pantoprazole 40mg Tablet.DR PO SCH (07:39)
[2023-03-14] MEDS: oxybutynin 5mg tablet PO SCH ×3 (07:39→21:02)
[2023-03-14] MEDS: GLYCOPYRROLATE IH SCH ×2 (07:59→21:09)
[2023-03-14] MEDS: FORMOTEROL FUM IH SCH ×2 (07:59→21:09)
--- NOTE | 2023-03-14 07:59 | NUR ---
linked med note: percocet and morphine not reassessed, was not my shift. Patients home medication not administered as it was not my shift.
[2023-03-14 11:30] VITALS: BP_SYST 110; BP_SYST 112; BP_DIAS 60; BP_DIAS 69
[2023-03-14] MEDS: oxyCODONE/APAP 10/325mg tablet PO PRN (12:47)
[2023-03-14] MEDS ORDERED: magnesium 4gm in 100ml NS 100 ML IV PRN (14:10)
[2023-03-14] MEDS ORDERED: magnesium 2GM in 50ml NS 50 ML IV PRN (14:10)
[2023-03-14] MEDS ORDERED: magnesium Cl slow-release 64mg tablet PO PRN (14:10)
[2023-03-14] MEDS ORDERED: potassium Cl 20 mEq SR tablet PO PRN (14:10)
[2023-03-14] MEDS ORDERED: potassium Cl 40MEQ/1/2NS 520ml 520 ML IV PRN (14:10)
[2023-03-14] MEDS: potassium Cl 20 mEq SR tablet PO PRN (14:39)
[2023-03-14 18:00] VITALS: BP 110/68
--- NOTE | 2023-03-14 18:10 | NUR ---
Problems reprioritized. Patient report given, questions answered & plan of care reviewed with LORENA Qiu.
--- NOTE | 2023-03-14 18:30 | NUR ---
Patient in room ARM[facility]O 348. I have received report from NICOLE CARRILLO and had the opportunity to ask questions and assume patient care.
[2023-03-14] MEDS: K and/or MAG REPLACEMENT MC SCH (20:00)
[2023-03-14] MEDS: CefTRIAXone/D5W-Rocephin 1gm 50 ML IV SCH (20:57)
[2023-03-14 22:00] VITALS: BP 109/72
[2023-03-15] MEDS: oxyCODONE/APAP 10/325mg tablet PO PRN ×3 (01:51→22:04)
[2023-03-15] MEDS: normal saline 1000ml 1,000 ML IV SCH ×2 (03:23→13:18)
[2023-03-15 06:13] VITALS: BP 101/56
--- NOTE | 2023-03-15 06:33 | NUR ---
Problems reprioritized. Patient report given, questions answered & plan of care reviewed with NICOLE CARRILLO.
[2023-03-15 06:37] LABS: BASOPHILS # (AUTO) 0.2 X10'3 (0-0.2); EOSINOPHILS # (AUTO) 0.1 X10'3 (0-0.9); HEMATOCRIT 34.9 % (42.0-52.0); HEMOGLOBIN 11.2 g/dl (14.0-17.9); LYMPHOCYTES # (AUTO) 1.1 X10'3 (1.1-4.8); LYMPHOCYTES % (AUTO) 9.2 % (21-51); MEAN CORPUSCULAR HEMOGLOBIN 27.4 PG (27.0-31.0); MEAN CORPUSCULAR VOLUME 85.7 FL (78-98); MEAN PLATELET VOLUME 6.5 FL (7.4-10.4); MONOCYTES # (AUTO) 1.3 X10'3 (0-0.9); MONOCYTES % (AUTO) 11.4 % (2-12); NEUTROPHILS # (AUTO) 9.1 X10'3 (1.8-7.7); NEUTROPHILS % (AUTO) 76.4 % (42-75); PLATELET COUNT 235 X10'3 (140-440); RED BLOOD COUNT 4.07 X10'6 (4.70-6.10); RED CELL DISTRIBUTION WIDTH 15.7 % (11.5-14.5); WHITE BLOOD COUNT 11.9 X10'3 (4.5-11.0)
[2023-03-15 07:01] LABS: ALBUMIN 1.6 G/DL (3.4-5.0); ANION GAP 10 (8-16); BLOOD UREA NITROGEN 23 MG/DL (7-18); BUN/CREATININE RATIO 9.2 (10.0-20.0); CALCIUM 8.7 MG/DL (8.5-10.1); CHLORIDE 108 MMOL/L (99-107); GLUCOSE 110 MG/DL (70-104); MAGNESIUM 1.8 MG/DL (1.5-2.4); POTASSIUM 3.2 MMOL/L (3.5-5.1); SODIUM 137 MMOL/L (135-145); TOTAL CARBON DIOXIDE 18.6 MMOL/L (24-32); eGFR 26 ML/MIN
[2023-03-15] MEDS: K and/or MAG REPLACEMENT MC SCH ×2 (08:00→20:00)
[2023-03-15] MEDS: GLYCOPYRROLATE IH SCH ×2 (08:00→20:00)
[2023-03-15] MEDS: FORMOTEROL FUM IH SCH ×2 (08:00→20:00)
[2023-03-15] MEDS: pantoprazole 40mg Tablet.DR PO SCH (08:07)
[2023-03-15] MEDS: docusate sod 100mg capsule PO SCH ×2 (08:08→20:22)
[2023-03-15] MEDS: potassium Cl 20 mEq SR tablet PO PRN ×3 (08:08→20:26)
[2023-03-15] MEDS: duloxetine 30mg CAPSULE.DR PO SCH (08:08)
[2023-03-15] MEDS: tamsulosin 0.4mg capsule PO SCH (08:09)
[2023-03-15] MEDS: modafinil 100mg tablet PO SCH (08:09)
[2023-03-15] MEDS: gabapentin 300mg capsule PO SCH (08:09)
[2023-03-15] MEDS: oxybutynin 5mg tablet PO SCH ×3 (08:09→20:22)
[2023-03-15] MEDS: ferrous sulfate 325mg tablet PO SCH ×2 (08:09→20:22)
[2023-03-15] MEDS: multivitamins, therapeutics tablet PO SCH (08:10)
[2023-03-15] MEDS: heparin, porcine 5000 units/ml vial SQ SCH ×2 (08:11→20:23)
[2023-03-15 11:34] VITALS: BP 106/75
[2023-03-15] MEDS: nystatin 15 GM powder TP SCH (20:23)
[2023-03-15 20:39] VITALS: BP 114/51
[2023-03-15] MEDS: CefTRIAXone/D5W-Rocephin 1gm 50 ML IV SCH (22:04)
[2023-03-15 23:21] VITALS: BP 119/75
[2023-03-16] MEDS: normal saline 1000ml 1,000 ML IV SCH (03:43)
[2023-03-16 06:22] LABS: BASOPHILS # (AUTO) 0.1 X10'3 (0-0.2); BASOPHILS % (AUTO) 0.9 % (0-1); EOSINOPHILS # (AUTO) 0.3 X10'3 (0-0.9); EOSINOPHILS % (AUTO) 2.6 % (0-6); HEMATOCRIT 35.9 % (42.0-52.0); HEMOGLOBIN 11.5 g/dl (14.0-17.9); LYMPHOCYTES # (AUTO) 1.1 X10'3 (1.1-4.8); MEAN CORPUSCULAR HEMOGLOBIN 27.6 PG (27.0-31.0); MEAN CORPUSCULAR VOLUME 86.2 FL (78-98); MEAN PLATELET VOLUME 6.4 FL (7.4-10.4); MONOCYTES # (AUTO) 1.1 X10'3 (0-0.9); MONOCYTES % (AUTO) 10.9 % (2-12); NEUTROPHILS # (AUTO) 7.5 X10'3 (1.8-7.7); NEUTROPHILS % (AUTO) 74.6 % (42-75); PLATELET COUNT 244 X10'3 (140-440); RED BLOOD COUNT 4.17 X10'6 (4.70-6.10); RED CELL DISTRIBUTION WIDTH 15.6 % (11.5-14.5)
--- NOTE | 2023-03-16 06:25 | NUR ---
Problems reprioritized. Patient report given, questions answered & plan of care reviewed with LORENA Brown.
[2023-03-16 06:32] LABS: ALBUMIN 1.7 G/DL (3.4-5.0); ANION GAP 9 (8-16); BLOOD UREA NITROGEN 20 MG/DL (7-18); CALCIUM 9.4 MG/DL (8.5-10.1); CHLORIDE 110 MMOL/L (99-107); GLUCOSE 103 MG/DL (70-104); MAGNESIUM 1.8 MG/DL (1.5-2.4); SODIUM 140 MMOL/L (135-145); TOTAL CARBON DIOXIDE 21.1 MMOL/L (24-32); eGFR 26 ML/MIN
--- NOTE | 2023-03-16 06:49 | NUR ---
Patient in room ARMANDO 348. I have received report from Huma CARRILLO and had the opportunity to ask questions and assume patient care.
[2023-03-16 06:52] VITALS: BP 116/50
[2023-03-16] MEDS: FORMOTEROL FUM IH SCH (08:00)
[2023-03-16] MEDS: GLYCOPYRROLATE IH SCH (08:00)
[2023-03-16] MEDS: K and/or MAG REPLACEMENT MC SCH (08:00)
[2023-03-16] MEDS: modafinil 100mg tablet PO SCH (08:13)
[2023-03-16] MEDS: gabapentin 300mg capsule PO SCH (08:14)
[2023-03-16] MEDS: multivitamins, therapeutics tablet PO SCH (08:14)
[2023-03-16] MEDS: duloxetine 30mg CAPSULE.DR PO SCH (08:14)
[2023-03-16] MEDS: tamsulosin 0.4mg capsule PO SCH (08:14)
[2023-03-16] MEDS: pantoprazole 40mg Tablet.DR PO SCH (08:14)
[2023-03-16] MEDS: ferrous sulfate 325mg tablet PO SCH (08:15)
[2023-03-16] MEDS: docusate sod 100mg capsule PO SCH (08:15)
[2023-03-16] MEDS: oxybutynin 5mg tablet PO SCH ×2 (08:15→13:20)
[2023-03-16] MEDS: nystatin 15 GM powder TP SCH (08:15)
[2023-03-16] MEDS: heparin, porcine 5000 units/ml vial SQ SCH (08:16)
[2023-03-16] MEDS ORDERED: CEFD300C3 PO (10:28)
[2023-03-16 11:56] VITALS: BP 119/65
--- NOTE | 2023-03-16 13:55 | NUR ---
Received discharge instructions, reviewed with patient, patient verbalized understanding. IV removed with cannula intact. Patient wheeled to lobby with belongings and spouse.
== END 2023-03-16 13:55 | disposition home or self-care (01) | DRG 682 ==
LOC: ER 18:04 → ED HOLD 19:46 → SUR 3N 21:50
PROVIDERS: ADMIT Internal Medicine; ATTEND Family Medicine
DX: N17.0 Acute kidney failure with tubular necrosis (principal); G93.41 Metabolic encephalopathy; I13.0 Hypertensive heart and chronic kidney disease with heart failure and stage 1 through stage 4 chronic kidney disease, or unspecified chronic kidney disease; J96.11 Chronic respiratory failure with hypoxia; N30.01 Acute cystitis with hematuria; B96.20 Unspecified Escherichia coli [E. coli] as the cause of diseases classified elsewhere; E66.01 Morbid (severe) obesity due to excess calories; G89.4 Chronic pain syndrome; K21.9 Gastro-esophageal reflux disease without esophagitis; E87.6 Hypokalemia; E88.09 Other disorders of plasma-protein metabolism, not elsewhere classified; I95.9 Hypotension, unspecified; M54.9 Dorsalgia, unspecified; I50.9 Heart failure, unspecified; J44.9 Chronic obstructive pulmonary disease, unspecified; N18.32 Chronic kidney disease, stage 3b; N40.0 Benign prostatic hyperplasia without lower urinary tract symptoms; Z68.33 Body mass index [BMI] 33.0-33.9, adult; Z83.3 Family history of diabetes mellitus; Z87.442 Personal history of urinary calculi; Z90.49 Acquired absence of other specified parts of digestive tract; Z91.030 Bee allergy status; Z91.041 Radiographic dye allergy status; Z79.899 Other long term (current) drug therapy; Z87.891 Personal history of nicotine dependence; Z99.81 Dependence on supplemental oxygen
CPT/HCPCS: 36415; 71045; 76770; 80048; 80053; 81001; 82948; 83605; 83735; 83880; 84145; 84443; 85025; 87040; 87077; 87081; 87088; 87186; 94640; 94760; 96365; 97110; 97161; 97530; 99285; A4615; A5200; G0378; J0696; J1644; J2270; J7030

== ENCOUNTER 2023-05-27 23:31 | Emergency (ER) | payer BC, MEDICARE ==
[~2023-05-27] VITALS: Ht 172.7 cm; Wt 120.0 kg
[~2023-05-27 23:31] MED LIST changes: +ALBU2.5V10 NEB; -ALBU8.5H17 INH; -CLOT15CR35 TOP; +DICL100G30 TOP
[2023-05-28 00:20] LABS: ALANINE AMINOTRANSFERASE 10 U/L (12-78); ALBUMIN 2.3 G/DL (3.4-5.0); ALBUMIN/GLOBULIN RATIO 0.5 (1.1-1.5); ALKALINE PHOSPHATASE 105 IU/L (46-116); ANION GAP 16 (8-16); ASPARTATE AMINO TRANSFERASE 5 U/L (10-37); BILIRUBIN,TOTAL 0.4 MG/DL (0.1-1.0); BLOOD UREA NITROGEN 95 MG/DL (7-18); BUN/CREATININE RATIO 12.4 (10.0-20.0); CALCIUM 8.8 MG/DL (8.5-10.1); CHLORIDE 105 MMOL/L (99-107); CREATININE 7.69 MG/DL (0.60-1.10); GLUCOSE 138 MG/DL (70-104); POTASSIUM 4.2 MMOL/L (3.5-5.1); SODIUM 134 MMOL/L (135-145); TOTAL PROTEIN 6.5 G/DL (6.4-8.2); eGFR 7 ML/MIN
[2023-05-28 00:28] LABS: TOTAL CARBON DIOXIDE 12.6 MMOL/L (24-32)
[2023-05-28 00:34] LABS: BASOPHILS # (AUTO) 0.2 X10'3 (0-0.2); EOSINOPHILS # (AUTO) 0.1 X10'3 (0-0.9); EOSINOPHILS % (AUTO) 0.6 % (0-6); HEMATOCRIT 30.5 % (42.0-52.0); HEMOGLOBIN 9.9 g/dl (14.0-17.9); LYMPHOCYTES # (AUTO) 0.7 X10'3 (1.1-4.8); LYMPHOCYTES % (AUTO) 5.8 % (21-51); MEAN CORPUSCULAR HEMOGLOBIN 28.5 PG (27.0-31.0); MEAN CORPUSCULAR HGB CONC 32.4 g/dL (33.0-36.5); MEAN CORPUSCULAR VOLUME 88.1 FL (78-98); MEAN PLATELET VOLUME 6.4 FL (7.4-10.4); MONOCYTES % (AUTO) 7.5 % (2-12); NEUTROPHILS # (AUTO) 10.7 X10'3 (1.8-7.7); NEUTROPHILS % (AUTO) 84.1 % (42-75); PLATELET COUNT 229 X10'3 (140-440); RED BLOOD COUNT 3.46 X10'6 (4.70-6.10); RED CELL DISTRIBUTION WIDTH 18.1 % (11.5-14.5); WHITE BLOOD COUNT 12.7 X10'3 (4.5-11.0)
[2023-05-28] MEDS ORDERED: LIDOCAINE 2%/EPI 1:100,000 inj. Multi-dose 20 ML VIAL SQ ONE (00:50)
[2023-05-28] MEDS ORDERED: CefTRIAXone 2gm/D5W 50ml BAG 50 ML IV ONE (00:54)
[2023-05-28 01:15] LABS: TOTAL CELLS COUNTED 100
[2023-05-28 01:16] LABS: ANISOCYTOSIS 2+; PLATELET ESTIMATE NORMAL
[2023-05-28] MEDS ORDERED: LIDOcaine 1% W/epiNEPHrine 1:100,000 20ml vial SQ ONE (01:55)
[2023-05-28 01:57] LABS: CLARITY,URINE CLOUDY (Clear); COLOR,URINE YELLOW (Yellow); GLUCOSE, URINE NEGATIVE (Neg); KETONES,URINE NEGATIVE (Neg); LEUKOCYTE ESTERASE ,URINE LARGE (Neg); NITRITES, URINE NEGATIVE (Neg); OCCULT BLOOD,URINE MODERATE (Neg); PROTEIN,URINE 100 mg/dl (Neg); UROBILINOGEN,URINE 0.2 E.U/dL (0.2-1.0)
[2023-05-28 02:02] LABS: UA COLLECTION TYPE FOLEY CATH
[2023-05-28 02:08] LABS: WBC,URINE TNTC /HPF (0-4)
[2023-05-28 02:10] LABS: BACTERIA,URINE FEW /HPF (Neg); MUCUS STRANDS NONE SEEN /LPF (Neg); SQUAMOUS EPITHELIAL CELL,UR FEW /LPF (FEW)
[2023-05-28] MEDS ORDERED: NORepinephrine 8mg/ 250ml NS 250 ML IV ONE (02:33)
[2023-05-28] MEDS ORDERED: normal saline 1000ML IV soln IVB ONE ×2 (03:15)
[2023-05-28 04:57] VITALS: BP 102/72
== END 2023-05-28 07:00 ==
LOC: ER 23:32
DX: A41.9 Sepsis, unspecified organism (principal); R53.1 Weakness; M25.511 Pain in right shoulder; M25.512 Pain in left shoulder; I11.0 Hypertensive heart disease with heart failure; J44.9 Chronic obstructive pulmonary disease, unspecified; K21.9 Gastro-esophageal reflux disease without esophagitis; G89.29 Other chronic pain; M54.9 Dorsalgia, unspecified; X58.XXXA Exposure to other specified factors, initial encounter; Y93.89 Activity, other specified; Y92.89 Other specified places as the place of occurrence of the external cause; Y99.8 Other external cause status
CPT/HCPCS: 36415; 36556; 71045; 80053; 81001; 83605; 83880; 84145; 84484; 85007; 85025; 87040; 87088; 93005; 96365; 96366; 99291; J0696; J3490; J7030; 96368

== ENCOUNTER 2023-06-12 06:49 | Outpatient (CLI) | payer BC, MEDICARE | END 2023-06-12 23:59 | disposition home or self-care (01) | LOC: LAB 06:49 | PROVIDERS: ATTEND Family Medicine | DX: N39.0 Urinary tract infection, site not specified (principal); R31.9 Hematuria, unspecified | CPT/HCPCS: 87088 ==

== ENCOUNTER 2023-07-06 23:14 | Inpatient (IN) | payer BC, MEDICARE ==
[~2023-07-06] VITALS: Ht 172.7 cm; Wt 115.7 kg
[~2023-07-06 23:14] MED LIST changes: -DICL100G30 TOP; +DICL100G59 TOP
[2023-07-06] MEDS ORDERED: normal saline 1000ML IV soln IVB ONE (23:50)
[2023-07-06] MEDS ORDERED: CefTRIAXone/D5W-Rocephin 1gm 50 ML IV ONE (23:50)
[2023-07-07] VITALS (7 sets, daily range): PULSE 82–99; RESP 13–16; O2SAT 95–97
--- NOTE | 2023-07-07 00:30 | NUR ---
see paper chart for wound pictures.
[2023-07-07] MEDS ORDERED: CHOL20002 PO (01:00)
[2023-07-07] MEDS ORDERED: ONDA8TAB13 PO (01:00)
[2023-07-07] MEDS ORDERED: UMEC1DIS INH (01:00)
[2023-07-07] MEDS ORDERED: SODI650T29 PO (01:00)
[2023-07-07] MEDS ORDERED: DIAZ5TAB22 PO (01:00)
[2023-07-07] MEDS ORDERED: POTA-206 PO (01:00)
--- NOTE | 2023-07-07 01:00 | NUR ---
pt repostioned to right side, propped up with pillows, heels floated.
[2023-07-07 01:08] LABS: BILIRUBIN,URINE NEGATIVE (Neg); CLARITY,URINE CLOUDY (Clear); COLOR,URINE YELLOW (Yellow); GLUCOSE, URINE NEGATIVE (Neg); KETONES,URINE NEGATIVE (Neg); LEUKOCYTE ESTERASE ,URINE LARGE (Neg); NITRITES, URINE NEGATIVE (Neg); OCCULT BLOOD,URINE SMALL (Neg); PROTEIN,URINE 100 mg/dl (Neg); UROBILINOGEN,URINE 0.2 E.U/dL (0.2-1.0)
[2023-07-07 01:10] LABS: MEAN CORPUSCULAR HEMOGLOBIN 28.3 PG (27.0-31.0); MEAN CORPUSCULAR HGB CONC 32.9 g/dL (33.0-36.5); MEAN PLATELET VOLUME 6.4 FL (7.4-10.4)
[2023-07-07 01:12] LABS: HEMATOCRIT 32.5 % (42.0-52.0); HEMOGLOBIN 10.7 g/dl (14.0-17.9); PLATELET COUNT 290 X10'3 (140-440); RED BLOOD COUNT 3.78 X10'6 (4.70-6.10); RED CELL DISTRIBUTION WIDTH 15.1 % (11.5-14.5); WHITE BLOOD COUNT 11.8 X10'3 (4.5-11.0)
[2023-07-07 01:14] LABS: ALANINE AMINOTRANSFERASE 11 U/L (12-78); ALBUMIN 2.2 G/DL (3.4-5.0); ALBUMIN/GLOBULIN RATIO 0.4 (1.1-1.5); ALKALINE PHOSPHATASE 126 IU/L (46-116); ANION GAP 16 (8-16); ASPARTATE AMINO TRANSFERASE 5 U/L (10-37); BILIRUBIN,TOTAL 0.3 MG/DL (0.1-1.0); BLOOD UREA NITROGEN 107 MG/DL (7-18); CALCIUM 9.2 MG/DL (8.5-10.1); CHLORIDE 99 MMOL/L (99-107); CREATININE 9.74 MG/DL (0.60-1.10); GLUCOSE 102 MG/DL (70-104); POTASSIUM 5.2 MMOL/L (3.5-5.1); SODIUM 132 MMOL/L (135-145); TOTAL CARBON DIOXIDE 16.8 MMOL/L (24-32); TOTAL PROTEIN 7.2 G/DL (6.4-8.2); eCRCL 7 ML/MIN; eGFR 5 ML/MIN
[2023-07-07 01:16] LABS: UA COLLECTION TYPE STRAIGHT CATH
[2023-07-07 01:23] LABS: WBC,URINE TNTC /HPF (0-4)
[2023-07-07 01:25] LABS: BACTERIA,URINE 1+ /HPF (Neg); SQUAMOUS EPITHELIAL CELL,UR FEW /LPF (FEW)
[2023-07-07 01:26] LABS: MUCUS STRANDS MODERATE /LPF (Neg)
[2023-07-07 02:36] LABS: ANISOCYTOSIS 1+; PLATELET ESTIMATE NORMAL; TOTAL CELLS COUNTED 100
[2023-07-07 02:37] LABS: TOXIC GRANULATION 1+
--- NOTE | 2023-07-07 03:00 | NUR ---
pt repositioned to left sdie and propped up with pillows, heels floated.
[2023-07-07] MEDS ORDERED: albuterol 2.5 MG/3 ML nebule NEB PRN ×2 (03:30→04:50)
[2023-07-07] MEDS ORDERED: morphine 2 MG/ML inj. syringe IV PRN ×2 (03:35)
[2023-07-07] MEDS ORDERED: diphenhydrAMINE 50 mg/ml inj IV PRN (03:35)
[2023-07-07] MEDS ORDERED: acetaminophen 650mg rectal suppository RC PRN (03:35)
[2023-07-07] MEDS ORDERED: diphenhydrAMINE 25mg capsule PO PRN (03:35)
[2023-07-07] MEDS ORDERED: mag hydrox/Alum hydrox/simeth 30ml oral suspension PO PRN (03:35)
[2023-07-07] MEDS ORDERED: HYDROcodone/acetaminophen 10/325mg tab PO PRN (03:35)
[2023-07-07] MEDS ORDERED: bisacodyl 10mg suppository rectal RC PRN (03:35)
[2023-07-07] MEDS ORDERED: ondansetron 4mg rapidly disintigrating tab PO PRN (03:35)
[2023-07-07] MEDS ORDERED: ondansetron/PF 4mg/2ml inj IV PRN (03:35)
[2023-07-07] MEDS ORDERED: magnesium hydroxide 30ml (MOM) UD suspension PO PRN (03:35)
[2023-07-07] MEDS ORDERED: HYDROcodone/acetaminophen 5mg/325mg tablet PO PRN (03:35)
[2023-07-07] MEDS ORDERED: acetaminophen 325mg tablet PO PRN ×2 (03:35)
[2023-07-07] MEDS ORDERED: normal saline 1000ml 1,000 ML IV SCH (03:35)
[2023-07-07] MEDS ORDERED: calcium chloride 100 MG/1 ML inj IV ONE (03:40)
[2023-07-07] MEDS ORDERED: sodium bicarbonate (8.4%) 1 mEq/ml syringe IV ONE (03:40)
[2023-07-07 04:18] LABS: APTT 36 SECONDS (22-32); D-DIMER 0.53 MG/L FEU (0-0.50); PROTHROMBIN TIME 10.7 SECONDS (9.0-12.0)
[2023-07-07 04:39] LABS: MAGNESIUM 2.4 MG/DL (1.5-2.4); PRO BRAIN NATRIURETIC PEPTIDE 980 PG/ML (0-125)
[2023-07-07 04:43] LABS: HEMOGLOBIN A1C 4.5 % (4.5-6.2)
--- NOTE | 2023-07-07 04:44 | NUR ---
pt to ct.
[2023-07-07] MEDS ORDERED: calcium gluconate inj. 1 GM in normal saline 100ml IV soln 100 ML IV ONE (04:45)
[2023-07-07] MEDS ORDERED: CALCIUM GLUC 1gm/50ml NACL,iso 50 ML IV ONE (04:55)
--- NOTE | 2023-07-07 06:22 | NUR ---
pt brief changed. repositioned, no blanket given. pt is incontinent.
[2023-07-07] MEDS ORDERED: LidoCAINE 2% Topical Jelly 11mL syringe TOP ONE ×2 (07:35→07:40)
--- NOTE | 2023-07-07 07:35 | NUR ---
PER DR JAUREGUI RN TO PLACE AGUAYO AND STRICT I'S & O'S.
[2023-07-07] MEDS ORDERED: LIDOcaine 2% 10ml TOPICAL JELLY (Urojet) TP ONE (07:40)
[2023-07-07] MEDS: GLYCOPYRROLATE IH SCH ×2 (08:00→19:53)
[2023-07-07] MEDS: FORMOTEROL FUM IH SCH ×2 (08:00→19:53)
[2023-07-07] MEDS ORDERED: NYSTATIN 60 GM POWDER-BULK CONTAINER TP SCH (08:00)
--- NOTE | 2023-07-07 08:03 | NUR ---
PT TAKEN TO CT.
[2023-07-07] MEDS: ipratropium/albuterol 3ml nebule NEB SCH ×3 (08:08→20:14)
--- NOTE | 2023-07-07 08:24 | NUR ---
PT GETTING RT TX AT THIS TIME.
[2023-07-07] MEDS: sodium bicarbonate (8.4%) inj. 150 MEQ in dextrose 5%-water 1,000 ML IV SCH ×3 (09:08→21:00)
--- NOTE | 2023-07-07 09:20 | NUR ---
RN ORD CMP PER PROTOCOL TO GET BICARB LEVEL FOR NA BICARB FLUIDS.
[2023-07-07] MEDS: docusate sod 100mg capsule PO SCH ×2 (09:21→19:55)
--- NOTE | 2023-07-07 09:48 | NUR ---
PT HAVING US OF KIDNEYS AT THIS TIME. RN WILL ADMIN PO MEDS ONCE COMPLETE.
[2023-07-07] MEDS: CefTRIAXone/D5W-Rocephin 1gm 50 ML IV SCH (09:49)
[2023-07-07 10:16] LABS: ALANINE AMINOTRANSFERASE 11 U/L (12-78); ALBUMIN 1.9 G/DL (3.4-5.0); ALBUMIN/GLOBULIN RATIO 0.4 (1.1-1.5); ALKALINE PHOSPHATASE 112 IU/L (46-116); ANION GAP 18 (8-16); ASPARTATE AMINO TRANSFERASE 6 U/L (10-37); BILIRUBIN,TOTAL 0.3 MG/DL (0.1-1.0); BLOOD UREA NITROGEN 112 MG/DL (7-18); BUN/CREATININE RATIO 11.4 (10.0-20.0); CALCIUM 9.1 MG/DL (8.5-10.1); CHLORIDE 102 MMOL/L (99-107); CREATININE 9.79 MG/DL (0.60-1.10); GLUCOSE 95 MG/DL (70-104); POTASSIUM 4.4 MMOL/L (3.5-5.1); SODIUM 137 MMOL/L (135-145); TOTAL CARBON DIOXIDE 16.8 MMOL/L (24-32); TOTAL PROTEIN 6.2 G/DL (6.4-8.2); eCRCL 7 ML/MIN; eGFR 5 ML/MIN
[2023-07-07] MEDS: modafinil 100mg tablet PO SCH (10:43)
[2023-07-07] MEDS: tamsulosin 0.4mg capsule PO SCH (10:43)
[2023-07-07] MEDS: ferrous sulfate 325mg tablet PO SCH ×2 (10:43→20:07)
[2023-07-07] MEDS: pantoprazole 40mg Tablet.DR PO SCH (10:44)
[2023-07-07] MEDS: heparin, porcine 5000 units/ml vial SQ SCH ×2 (10:45→20:07)
[2023-07-07] MEDS: nystatin 15 GM powder TP SCH ×3 (10:46→21:13)
--- NOTE | 2023-07-07 11:50 | NUR ---
RN PAGED DR JAUREGUI TO REQ CMP ORD TO REYES BICARB SO NA BICARB IN D5 CAN BE STOPPED ONCE BICARB > 24.
--- NOTE | 2023-07-07 12:00 | NUR ---
DR JAUREGUI CALLED BACK AND STATED THAT CMP TO MONITOR PT NA BICARB FOR THE NA BICARB FLUIDS IS ONLY NECESSARY DAILY AND CMP DAILY IS ALREADY ORDERED AND WILL BE COLLECTED 07/08.
--- NOTE | 2023-07-07 14:36 | NUR ---
nystatin powder applied late. non admin last dose.
[2023-07-07 14:50] LABS: UA EOSINOPHILS RARE EOS /HPF
[2023-07-07] MEDS: gabapentin 300mg capsule PO SCH (20:06)
[2023-07-07] MEDS: duloxetine 30mg CAPSULE.DR PO SCH (20:06)
[2023-07-07] MEDS ORDERED: temazepam 15mg capsule PO PRN (21:00)
[2023-07-08] VITALS (15 sets, daily range): BP systolic 98–115; BP diastolic 64–91; PULSE 86–116; RESP 12–24; TEMP 97–98.3; O2SAT 94–97
[2023-07-08] MEDS: ipratropium/albuterol 3ml nebule NEB SCH ×4 (02:08→19:44)
[2023-07-08] MEDS: oxyCODONE/APAP 10/325mg tablet PO PRN (03:22)
--- NOTE | 2023-07-08 06:58 | NUR ---
Patient in room PCU 3014B. I have received report from HERIBERTO RYAN and had the opportunity to ask questions and assume patient care.
[2023-07-08 07:04] LABS: BASOPHILS % (AUTO) 0.4 % (0-1); EOSINOPHILS # (AUTO) 0.2 X10'3 (0-0.9); EOSINOPHILS % (AUTO) 2.7 % (0-6); HEMOGLOBIN 8.7 g/dl (14.0-17.9); LYMPHOCYTES # (AUTO) 1.3 X10'3 (1.1-4.8); LYMPHOCYTES % (AUTO) 15.9 % (21-51); MEAN CORPUSCULAR HEMOGLOBIN 28.7 PG (27.0-31.0); MEAN CORPUSCULAR HGB CONC 33.5 g/dL (33.0-36.5); MEAN CORPUSCULAR VOLUME 85.5 FL (78-98); MONOCYTES # (AUTO) 0.8 X10'3 (0-0.9); MONOCYTES % (AUTO) 9.2 % (2-12); NEUTROPHILS # (AUTO) 5.9 X10'3 (1.8-7.7); NEUTROPHILS % (AUTO) 71.8 % (42-75); PLATELET COUNT 232 X10'3 (140-440); RED BLOOD COUNT 3.04 X10'6 (4.70-6.10); RED CELL DISTRIBUTION WIDTH 15.4 % (11.5-14.5); WHITE BLOOD COUNT 8.2 X10'3 (4.5-11.0)
[2023-07-08 07:21] LABS: ALANINE AMINOTRANSFERASE 7 U/L (12-78); ALBUMIN 1.7 G/DL (3.4-5.0); ALBUMIN/GLOBULIN RATIO 0.4 (1.1-1.5); ALKALINE PHOSPHATASE 98 IU/L (46-116); ANION GAP 16 (8-16); ASPARTATE AMINO TRANSFERASE 5 U/L (10-37); BILIRUBIN,TOTAL 0.2 MG/DL (0.1-1.0); BLOOD UREA NITROGEN 97 MG/DL (7-18); BUN/CREATININE RATIO 11.5 (10.0-20.0); CALCIUM 8.3 MG/DL (8.5-10.1); CHLORIDE 99 MMOL/L (99-107); CHOL/HDL RATIO 2.1 (0.00-4.99); CHOLESTEROL 92 MG/DL (0-200); CREATININE 8.44 MG/DL (0.60-1.10); GLUCOSE 118 MG/DL (70-104); HDL CHOLESTEROL 44 MG/DL (35-60); LDL CHOLESTEROL 38 MG/DL (50-100); POTASSIUM 3.8 MMOL/L (3.5-5.1); SODIUM 135 MMOL/L (135-145); TOTAL CARBON DIOXIDE 19.8 MMOL/L (24-32); TOTAL PROTEIN 5.6 G/DL (6.4-8.2); TRIGLYCERIDES 69 MG/DL (20-135); eCRCL 8 ML/MIN; eGFR 6 ML/MIN
[2023-07-08] MEDS: FORMOTEROL FUM IH SCH ×2 (07:53→19:43)
[2023-07-08] MEDS: GLYCOPYRROLATE IH SCH ×2 (07:53→19:43)
[2023-07-08 07:55] LABS: MAGNESIUM 2.3 MG/DL (1.5-2.4); PHOSPHORUS 8.1 MG/DL (2.3-4.5)
[2023-07-08] MEDS: nystatin 15 GM powder TP SCH ×3 (08:00→20:04)
[2023-07-08] MEDS: pantoprazole 40mg Tablet.DR PO SCH (11:31)
[2023-07-08] MEDS: docusate sod 100mg capsule PO SCH ×2 (11:32→20:03)
[2023-07-08] MEDS: ferrous sulfate 325mg tablet PO SCH ×2 (11:32→20:04)
[2023-07-08] MEDS: tamsulosin 0.4mg capsule PO SCH (11:32)
[2023-07-08] MEDS: modafinil 100mg tablet PO SCH (11:32)
[2023-07-08] MEDS: CefTRIAXone/D5W-Rocephin 1gm 50 ML IV SCH (11:34)
[2023-07-08] MEDS: heparin, porcine 5000 units/ml vial SQ SCH ×2 (11:40→20:04)
[2023-07-08] MEDS: sodium bicarbonate (8.4%) inj. 150 MEQ in dextrose 5%-water 1,000 ML IV SCH (14:30)
--- NOTE | 2023-07-08 18:44 | NUR ---
Problems reprioritized. Patient report given, questions answered & plan of care reviewed with HERIBERTO GRAYSON.
[2023-07-08] MEDS: gabapentin 300mg capsule PO SCH (20:03)
[2023-07-08] MEDS: duloxetine 30mg CAPSULE.DR PO SCH (20:04)
[2023-07-09] VITALS (14 sets, daily range): BP systolic 100–129; BP diastolic 67–80; PULSE 87–105; RESP 14–19; TEMP 97.5–97.7; O2SAT 93–98
[2023-07-09] MEDS: ipratropium/albuterol 3ml nebule NEB SCH ×4 (02:32→19:34)
--- NOTE | 2023-07-09 05:33 | NUR ---
AGREE WITH FARM TRUCK DRIVER ASSESSMENT
[2023-07-09] MEDS: sodium bicarbonate (8.4%) inj. 150 MEQ in dextrose 5%-water 1,000 ML IV SCH (05:44)
[2023-07-09 07:08] LABS: ALANINE AMINOTRANSFERASE 7 U/L (12-78); ALBUMIN 1.7 G/DL (3.4-5.0); ALBUMIN/GLOBULIN RATIO 0.4 (1.1-1.5); ALKALINE PHOSPHATASE 91 IU/L (46-116); ANION GAP 12 (8-16); ASPARTATE AMINO TRANSFERASE 8 U/L (10-37); BILIRUBIN,TOTAL 0.3 MG/DL (0.1-1.0); BLOOD UREA NITROGEN 95 MG/DL (7-18); BUN/CREATININE RATIO 12.4 (10.0-20.0); CHLORIDE 98 MMOL/L (99-107); CREATININE 7.66 MG/DL (0.60-1.10); GLUCOSE 117 MG/DL (70-104); MAGNESIUM 2.3 MG/DL (1.5-2.4); PHOSPHORUS 7.7 MG/DL (2.3-4.5); POTASSIUM 3.5 MMOL/L (3.5-5.1); SODIUM 133 MMOL/L (135-145); TOTAL CARBON DIOXIDE 22.6 MMOL/L (24-32); eCRCL 9 ML/MIN; eGFR 7 ML/MIN
[2023-07-09] MEDS: dutasteride 0.5 MG capsule PO SCH (07:15)
[2023-07-09] MEDS: pantoprazole 40mg Tablet.DR PO SCH (07:16)
[2023-07-09] MEDS: ferrous sulfate 325mg tablet PO SCH ×2 (07:16→21:57)
[2023-07-09] MEDS: tamsulosin 0.4mg capsule PO SCH (07:16)
[2023-07-09] MEDS: modafinil 100mg tablet PO SCH (07:16)
[2023-07-09] MEDS: docusate sod 100mg capsule PO SCH ×2 (07:16→21:57)
[2023-07-09] MEDS: oxyCODONE/APAP 10/325mg tablet PO PRN ×3 (07:17→22:00)
[2023-07-09] MEDS: FORMOTEROL FUM IH SCH ×2 (07:17→19:35)
[2023-07-09] MEDS: GLYCOPYRROLATE IH SCH ×2 (07:17→19:35)
[2023-07-09 07:18] LABS: BASOPHILS % (AUTO) 0.4 % (0-1); EOSINOPHILS # (AUTO) 0.3 X10'3 (0-0.9); EOSINOPHILS % (AUTO) 3.1 % (0-6); HEMATOCRIT 27.9 % (42.0-52.0); HEMOGLOBIN 9.2 g/dl (14.0-17.9); LYMPHOCYTES # (AUTO) 1.5 X10'3 (1.1-4.8); LYMPHOCYTES % (AUTO) 18.3 % (21-51); MEAN CORPUSCULAR HEMOGLOBIN 28.5 PG (27.0-31.0); MEAN CORPUSCULAR HGB CONC 32.9 g/dL (33.0-36.5); MEAN CORPUSCULAR VOLUME 86.6 FL (78-98); MEAN PLATELET VOLUME 6.4 FL (7.4-10.4); MONOCYTES # (AUTO) 1.1 X10'3 (0-0.9); MONOCYTES % (AUTO) 12.7 % (2-12); NEUTROPHILS # (AUTO) 5.4 X10'3 (1.8-7.7); NEUTROPHILS % (AUTO) 65.5 % (42-75); PLATELET COUNT 234 X10'3 (140-440); RED BLOOD COUNT 3.22 X10'6 (4.70-6.10); RED CELL DISTRIBUTION WIDTH 15.3 % (11.5-14.5); WHITE BLOOD COUNT 8.3 X10'3 (4.5-11.0)
[2023-07-09] MEDS: CefTRIAXone/D5W-Rocephin 1gm 50 ML IV SCH (07:33)
[2023-07-09] MEDS: nystatin 15 GM powder TP SCH ×3 (08:00→21:59)
[2023-07-09] MEDS: heparin, porcine 5000 units/ml vial SQ SCH ×2 (08:00→22:06)
[2023-07-09] MEDS ORDERED: fluconazole 100mg tablet PO ONE (10:10)
--- NOTE | 2023-07-09 14:51 | NUR ---
AGREE WITH WORT EXTRACTOR AM ASSESSMENT
[2023-07-09] MEDS: duloxetine 30mg CAPSULE.DR PO SCH (21:58)
[2023-07-09] MEDS: gabapentin 100mg capsule PO SCH (21:59)
[2023-07-10] VITALS (15 sets, daily range): BP systolic 88–142; BP diastolic 62–92; PULSE 67–115; RESP 14–21; TEMP 97.5–98.2; O2SAT 92–98
[2023-07-10] MEDS: ipratropium/albuterol 3ml nebule NEB SCH ×4 (02:26→19:41)
--- NOTE | 2023-07-10 06:30 | NUR ---
Patient in room PCU 3014. I have received report from MIGUEL CARRILLO and had the opportunity to ask questions and assume patient care.
[2023-07-10] MEDS: FORMOTEROL FUM IH SCH ×2 (07:41→19:41)
[2023-07-10] MEDS: GLYCOPYRROLATE IH SCH ×2 (07:41→19:41)
[2023-07-10 07:42] LABS: BASOPHILS % (AUTO) 0.3 % (0-1); EOSINOPHILS # (AUTO) 0.3 X10'3 (0-0.9); EOSINOPHILS % (AUTO) 3.6 % (0-6); HEMATOCRIT 28.1 % (42.0-52.0); LYMPHOCYTES # (AUTO) 1.6 X10'3 (1.1-4.8); MEAN CORPUSCULAR HGB CONC 31.9 g/dL (33.0-36.5); MEAN CORPUSCULAR VOLUME 87.6 FL (78-98); MEAN PLATELET VOLUME 6.6 FL (7.4-10.4); MONOCYTES # (AUTO) 0.9 X10'3 (0-0.9); NEUTROPHILS # (AUTO) 4.9 X10'3 (1.8-7.7); NEUTROPHILS % (AUTO) 64.1 % (42-75); PLATELET COUNT 244 X10'3 (140-440); RED BLOOD COUNT 3.21 X10'6 (4.70-6.10); RED CELL DISTRIBUTION WIDTH 15.2 % (11.5-14.5); WHITE BLOOD COUNT 7.7 X10'3 (4.5-11.0)
[2023-07-10] MEDS: docusate sod 100mg capsule PO SCH ×2 (08:17→20:18)
[2023-07-10] MEDS: pantoprazole 40mg Tablet.DR PO SCH (08:17)
[2023-07-10] MEDS: tamsulosin 0.4mg capsule PO SCH (08:17)
[2023-07-10] MEDS: ferrous sulfate 325mg tablet PO SCH ×2 (08:19→20:16)
[2023-07-10] MEDS: modafinil 100mg tablet PO SCH (08:19)
[2023-07-10] MEDS: oxyCODONE/APAP 10/325mg tablet PO PRN ×2 (08:19→20:16)
[2023-07-10] MEDS: dutasteride 0.5 MG capsule PO SCH (08:20)
[2023-07-10] MEDS: fluconazole 100mg tablet PO SCH (08:21)
[2023-07-10] MEDS: heparin, porcine 5000 units/ml vial SQ SCH ×2 (08:22→20:17)
[2023-07-10] MEDS: nystatin 15 GM powder TP SCH ×3 (08:24→20:17)
[2023-07-10 08:43] LABS: ALANINE AMINOTRANSFERASE 6 U/L (12-78); ALBUMIN 1.8 G/DL (3.4-5.0); ALBUMIN/GLOBULIN RATIO 0.4 (1.1-1.5); ALKALINE PHOSPHATASE 92 IU/L (46-116); ANION GAP 15 (8-16); ASPARTATE AMINO TRANSFERASE 9 U/L (10-37); BILIRUBIN,TOTAL 0.2 MG/DL (0.1-1.0); BLOOD UREA NITROGEN 83 MG/DL (7-18); BUN/CREATININE RATIO 12.3 (10.0-20.0); CHLORIDE 97 MMOL/L (99-107); CREATININE 6.76 MG/DL (0.60-1.10); GLUCOSE 91 MG/DL (70-104); MAGNESIUM 2.2 MG/DL (1.5-2.4); PHOSPHORUS 7.8 MG/DL (2.3-4.5); POTASSIUM 3.6 MMOL/L (3.5-5.1); SODIUM 136 MMOL/L (135-145); TOTAL CARBON DIOXIDE 24.1 MMOL/L (24-32); TOTAL PROTEIN 6.2 G/DL (6.4-8.2); eCRCL 10 ML/MIN; eGFR 8 ML/MIN
[2023-07-10] MEDS: sodium bicarbonate (8.4%) inj. 150 MEQ in dextrose 5%-water 1,000 ML IV SCH (10:48)
[2023-07-10] MEDS ORDERED: diazepam 5mg tablet PO PRN (15:45)
[2023-07-10] MEDS: diazepam 5mg tablet PO PRN (15:57)
--- NOTE | 2023-07-10 18:15 | NUR ---
Patient in room PCU 3014. I have received report from Radames CARRILLOchief of surgery and had the opportunity to ask questions and assume patient care.
--- NOTE | 2023-07-10 18:26 | NUR ---
Problems reprioritized. Patient report given, questions answered & plan of care reviewed with RODRIGO CARRILLO.
[2023-07-10] MEDS: duloxetine 30mg CAPSULE.DR PO SCH (20:16)
[2023-07-10] MEDS: gabapentin 100mg capsule PO SCH (20:16)
[2023-07-11] VITALS (14 sets, daily range): BP systolic 91–116; BP diastolic 60–90; PULSE 79–137; RESP 10–20; TEMP 97.6–98.3; O2SAT 92–98
[2023-07-11] MEDS: oxyCODONE/APAP 10/325mg tablet PO PRN ×3 (03:00→20:25)
--- NOTE | 2023-07-11 06:00 | NUR ---
Patient in room PCU 3014. I have received report from Shani/Daylin and had the opportunity to ask questions and assume patient care.
[2023-07-11 06:12] LABS: BASOPHILS # (AUTO) 0.1 X10'3 (0-0.2); BASOPHILS % (AUTO) 0.7 % (0-1); EOSINOPHILS # (AUTO) 0.3 X10'3 (0-0.9); EOSINOPHILS % (AUTO) 4.9 % (0-6); HEMOGLOBIN 8.5 g/dl (14.0-17.9); LYMPHOCYTES # (AUTO) 1.7 X10'3 (1.1-4.8); LYMPHOCYTES % (AUTO) 24.9 % (21-51); MEAN CORPUSCULAR HEMOGLOBIN 28.4 PG (27.0-31.0); MEAN CORPUSCULAR HGB CONC 32.6 g/dL (33.0-36.5); MEAN CORPUSCULAR VOLUME 87.2 FL (78-98); MEAN PLATELET VOLUME 6.3 FL (7.4-10.4); MONOCYTES # (AUTO) 0.9 X10'3 (0-0.9); MONOCYTES % (AUTO) 12.6 % (2-12); NEUTROPHILS % (AUTO) 56.9 % (42-75); PLATELET COUNT 255 X10'3 (140-440); RED BLOOD COUNT 2.98 X10'6 (4.70-6.10); RED CELL DISTRIBUTION WIDTH 15.1 % (11.5-14.5)
--- NOTE | 2023-07-11 06:14 | NUR ---
Problems reprioritized. Patient report given, questions answered & plan of care reviewed with Lucie LOUIS.
[2023-07-11 06:22] LABS: ALANINE AMINOTRANSFERASE 9 U/L (12-78); ALBUMIN 1.7 G/DL (3.4-5.0); ALBUMIN/GLOBULIN RATIO 0.4 (1.1-1.5); ALKALINE PHOSPHATASE 80 IU/L (46-116); ANION GAP 10 (8-16); ASPARTATE AMINO TRANSFERASE 8 U/L (10-37); BILIRUBIN,TOTAL 0.3 MG/DL (0.1-1.0); BLOOD UREA NITROGEN 84 MG/DL (7-18); BUN/CREATININE RATIO 13.1 (10.0-20.0); CHLORIDE 98 MMOL/L (99-107); CREATININE 6.41 MG/DL (0.60-1.10); GLUCOSE 91 MG/DL (70-104); PHOSPHORUS 6.5 MG/DL (2.3-4.5); POTASSIUM 3.8 MMOL/L (3.5-5.1); SODIUM 136 MMOL/L (135-145); TOTAL CARBON DIOXIDE 28.5 MMOL/L (24-32); eCRCL 10 ML/MIN; eGFR 9 ML/MIN
[2023-07-11 06:27] LABS: CALCIUM 9.2 MG/DL (8.5-10.1)
[2023-07-11] MEDS: ipratropium/albuterol 3ml nebule NEB SCH ×3 (07:42→20:42)
[2023-07-11] MEDS: GLYCOPYRROLATE IH SCH ×2 (07:45→20:42)
[2023-07-11] MEDS: FORMOTEROL FUM IH SCH ×2 (07:45→20:42)
[2023-07-11] MEDS: dutasteride 0.5 MG capsule PO SCH (08:00)
[2023-07-11] MEDS: modafinil 100mg tablet PO SCH (08:00)
[2023-07-11] MEDS: heparin, porcine 5000 units/ml vial SQ SCH ×2 (08:01→20:26)
[2023-07-11] MEDS: fluconazole 100mg tablet PO SCH (08:01)
[2023-07-11] MEDS: ferrous sulfate 325mg tablet PO SCH ×2 (08:02→20:23)
[2023-07-11] MEDS: tamsulosin 0.4mg capsule PO SCH (08:02)
[2023-07-11] MEDS: docusate sod 100mg capsule PO SCH ×2 (08:02→20:23)
[2023-07-11] MEDS: nystatin 15 GM powder TP SCH ×3 (08:02→21:00)
[2023-07-11] MEDS: pantoprazole 40mg Tablet.DR PO SCH (08:02)
--- NOTE | 2023-07-11 18:30 | NUR ---
Patient in room PCU 3014. I have received report from alethea archibald and had the opportunity to ask questions and assume patient care.
[2023-07-11] MEDS ORDERED: EPOETIN ALFA-EPBX 20,000 UNIT/ML 1 ML MDV SQ ONE (18:40)
--- NOTE | 2023-07-11 18:58 | NUR ---
Problems reprioritized. Patient report given, questions answered & plan of care reviewed with Yadira.
[2023-07-11] MEDS: gabapentin 100mg capsule PO SCH (20:24)
[2023-07-11] MEDS: duloxetine 30mg CAPSULE.DR PO SCH (20:24)
[2023-07-12] VITALS (8 sets, daily range): BP systolic 95–121; BP diastolic 60–72; PULSE 95–107; RESP 13–20; TEMP 97.9–98.9; O2SAT 91–98
[2023-07-12] MEDS: ipratropium/albuterol 3ml nebule NEB SCH ×2 (02:50→08:28)
[2023-07-12 06:34] LABS: % IRON SATURATION 22 % (11-46); IRON 34 UG/DL (53-167); TOTAL IRON BINDING CAPACITY 152 UG/DL (259-388)
--- NOTE | 2023-07-12 06:39 | NUR ---
Problems reprioritized. Patient report given, questions answered & plan of care reviewed with Lucie CARRILLO.
--- NOTE | 2023-07-12 06:41 | NUR ---
Patient in room PCU 3014. I have received report from Yadira and had the opportunity to ask questions and assume patient care.
[2023-07-12 06:47] LABS: BASOPHILS # (AUTO) 0.1 X10'3 (0-0.2); BASOPHILS % (AUTO) 0.6 % (0-1); EOSINOPHILS # (AUTO) 0.3 X10'3 (0-0.9); EOSINOPHILS % (AUTO) 3.2 % (0-6); HEMATOCRIT 27.3 % (42.0-52.0); LYMPHOCYTES # (AUTO) 1.8 X10'3 (1.1-4.8); LYMPHOCYTES % (AUTO) 21.4 % (21-51); MEAN CORPUSCULAR HEMOGLOBIN 28.8 PG (27.0-31.0); MEAN CORPUSCULAR VOLUME 87.4 FL (78-98); MEAN PLATELET VOLUME 6.2 FL (7.4-10.4); MONOCYTES # (AUTO) 0.9 X10'3 (0-0.9); NEUTROPHILS # (AUTO) 5.3 X10'3 (1.8-7.7); NEUTROPHILS % (AUTO) 63.8 % (42-75); PLATELET COUNT 267 X10'3 (140-440); RED BLOOD COUNT 3.13 X10'6 (4.70-6.10); RED CELL DISTRIBUTION WIDTH 14.7 % (11.5-14.5); WHITE BLOOD COUNT 8.3 X10'3 (4.5-11.0)
[2023-07-12 07:19] LABS: ALANINE AMINOTRANSFERASE 8 U/L (12-78); ALBUMIN 1.9 G/DL (3.4-5.0); ALBUMIN/GLOBULIN RATIO 0.4 (1.1-1.5); ALKALINE PHOSPHATASE 89 IU/L (46-116); ANION GAP 13 (8-16); ASPARTATE AMINO TRANSFERASE 7 U/L (10-37); BILIRUBIN,TOTAL 0.3 MG/DL (0.1-1.0); BLOOD UREA NITROGEN 82 MG/DL (7-18); BUN/CREATININE RATIO 13.4 (10.0-20.0); CALCIUM 9.3 MG/DL (8.5-10.1); CHLORIDE 96 MMOL/L (99-107); CREATININE 6.14 MG/DL (0.60-1.10); FERRITIN 148 NG/ML (26-388); GLUCOSE 107 MG/DL (70-104); MAGNESIUM 1.9 MG/DL (1.5-2.4); PHOSPHORUS 7.3 MG/DL (2.3-4.5); POTASSIUM 3.8 MMOL/L (3.5-5.1); SODIUM 134 MMOL/L (135-145); TOTAL CARBON DIOXIDE 24.9 MMOL/L (24-32); TOTAL PROTEIN 6.3 G/DL (6.4-8.2); eCRCL 11 ML/MIN; eGFR 9 ML/MIN
[2023-07-12] MEDS: dutasteride 0.5 MG capsule PO SCH (08:10)
[2023-07-12] MEDS: fluconazole 100mg tablet PO SCH (08:11)
[2023-07-12] MEDS: docusate sod 100mg capsule PO SCH (08:11)
[2023-07-12] MEDS: pantoprazole 40mg Tablet.DR PO SCH (08:11)
[2023-07-12] MEDS: modafinil 100mg tablet PO SCH (08:11)
[2023-07-12] MEDS: tamsulosin 0.4mg capsule PO SCH (08:11)
[2023-07-12] MEDS: ferrous sulfate 325mg tablet PO SCH (08:11)
[2023-07-12] MEDS: heparin, porcine 5000 units/ml vial SQ SCH (08:12)
[2023-07-12] MEDS: nystatin 15 GM powder TP SCH ×2 (08:13→13:51)
[2023-07-12] MEDS: FORMOTEROL FUM IH SCH (08:28)
[2023-07-12] MEDS: GLYCOPYRROLATE IH SCH (08:28)
[2023-07-12] MEDS: oxyCODONE/APAP 10/325mg tablet PO PRN (09:23)
[2023-07-12] MEDS: diazepam 5mg tablet PO PRN (09:23)
[2023-07-12] MEDS ORDERED: AVO0.5C PO (11:20)
[2023-07-12] MEDS ORDERED: FLUC200T28 PO (11:20)
[2023-07-12] MEDS ORDERED: GABA-530 PO (11:20)
--- NOTE | 2023-07-12 12:50 | NUR ---
PRESSURE ULCER EDUCATION: DEFINITION: A pressure ulcer is an area of skin that breaks down when you stay in one position too long. The constant pressure against the skin reduces the blood flow to that area and the affected tissue dies. CAUSES: "Being bedridden or in a wheelchair "Fragile skin "Having a chronic condition, such as diabetes or vascular disease "Inability to move certain parts of your body without assistance "Older age "Incontinence of urine or stool SYMPTOMS: "A reddened area that DOES NOT turn white when pressed on - this can be the beginning of a pressure ulcer "A blister, deep sore or a crater - these can be advanced pressure ulcers FIRST AID: "Relieve the pressure on this area "Keep the area clean and dry "Call your primary doctor if you see any of the above symptoms "DO NOT massage the area "DO NOT use a donut shaped or ring shaped pillow- these actually interfere with the blood flow and cause complications PREVENTION: "Check for pressure ulcers everyday "Change position at least every two hours to relieve pressure "Use items that help relieve pressure- pillows, sheepskin, foam padding, and powders. "Keep skin clean and dry "Eat healthy well balanced meals "Exercise daily IF YOU SEE ANY OF THESE SYMPTOMS WHILE IN THE HOSPITAL - TELL YOUR NURSE IMMEDIATELY. IF YOU SEE ANY OF THESE SYMPTOMS WHILE AT HOME OR HAVE ANY QUESTIONS OR CONCERNS ABOUT PRESSURE ULCERS - CALL YOUR PRIMARY DOCTOR IMMEDIATELY. Addendum: 07/12/23 at 1251 by China Fam RN Amended: Links added.
--- NOTE | 2023-07-12 15:19 | NUR ---
Patient discharged at 1415. I DCed IV and Tele and returned telebox to [facility]. I put a leg bag on him so he could leave with his catheter and educated him on how to use it and to follow up with his doctor. Patient took all belongings and left with his significant other in a private vehicle. Patient was alert and had no c/o pain or discomfort at the time of discharge. Patient took all discharge paperwork and agreed to follow up with his primary doctor.
[2023-07-13 11:12] LABS: HEPATITIS C VIRUS ANTIBODY Non Reactive (Non Reactive)
== END 2023-07-12 14:10 | disposition home health service (06) | DRG 690 ==
LOC: ER 23:15 → ED HOLD 07-07 03:37 → EDBEDREQ 07-08 01:17 → PCU 3S 07-08 02:00
PROVIDERS: ADMIT Family Medicine; ATTEND Family Medicine
DX: N13.6 Pyonephrosis (principal); E87.20 Acidosis, unspecified; I13.0 Hypertensive heart and chronic kidney disease with heart failure and stage 1 through stage 4 chronic kidney disease, or unspecified chronic kidney disease; J96.10 Chronic respiratory failure, unspecified whether with hypoxia or hypercapnia; B37.49 Other urogenital candidiasis; E87.1 Hypo-osmolality and hyponatremia; N17.9 Acute kidney failure, unspecified; N18.4 Chronic kidney disease, stage 4 (severe); E11.22 Type 2 diabetes mellitus with diabetic chronic kidney disease; E83.39 Other disorders of phosphorus metabolism; E66.01 Morbid (severe) obesity due to excess calories; G89.4 Chronic pain syndrome; E87.5 Hyperkalemia; B96.20 Unspecified Escherichia coli [E. coli] as the cause of diseases classified elsewhere; W05.0XXA Fall from non-moving wheelchair, initial encounter; K21.9 Gastro-esophageal reflux disease without esophagitis; D64.9 Anemia, unspecified; M54.9 Dorsalgia, unspecified; N40.0 Benign prostatic hyperplasia without lower urinary tract symptoms; M79.3 Panniculitis, unspecified; R80.9 Proteinuria, unspecified; N13.9 Obstructive and reflux uropathy, unspecified; I50.9 Heart failure, unspecified; J44.9 Chronic obstructive pulmonary disease, unspecified; Z83.3 Family history of diabetes mellitus; Z87.440 Personal history of urinary (tract) infections; Z87.442 Personal history of urinary calculi; Z87.891 Personal history of nicotine dependence; Z90.49 Acquired absence of other specified parts of digestive tract; Z91.041 Radiographic dye allergy status; Z68.38 Body mass index [BMI] 38.0-38.9, adult; Z79.899 Other long term (current) drug therapy; Y93.89 Activity, other specified; Y92.89 Other specified places as the place of occurrence of the external cause; Y99.8 Other external cause status; Z99.3 Dependence on wheelchair
CPT/HCPCS: 36415; 70450; 71045; 74176; 76770; 80053; 80061; 81001; 82570; 82728; 83036; 83540; 83550; 83605; 83735; 83880; 83935; 84100; 84133; 84145; 84156; 84300; 84484; 85007; 85025; 85379; 85610; 85730; 86803; 87040; 87081; 87088; 87207; 87522; 94640; 94760; 97161; 97530; 99285; A4314; A4615; A5200; A6212; A6213; A6250; A6258; A6402; G0378; J0610; J0696; J1644; J3490; J7030; J7040; J7070

== ENCOUNTER 2023-07-23 16:36 | Outpatient (CLI) | payer BC, MEDICARE ==
[~2023-07-23 16:36] MED LIST changes: +AVO0.5C PO; +CHOL20002 PO; +DIAZ5TAB22 PO; -DICL100G59 TOP; +FLUC200T28 PO; +GABA-530 PO; -GABA600T13 PO; -LOSA25TA41 PO; +ONDA8TAB13 PO; +SODI650T29 PO; -TOLT4CAP28 PO; +UMEC1DIS INH
[2023-07-23 17:17] LABS: ALBUMIN 2.2 G/DL (3.4-5.0); ANION GAP 10 (8-16); BLOOD UREA NITROGEN 94 MG/DL (7-18); BUN/CREATININE RATIO 14.9 (10.0-20.0); CALCIUM 9.5 MG/DL (8.5-10.1); CHLORIDE 103 MMOL/L (99-107); CREATININE 6.32 MG/DL (0.60-1.10); GLUCOSE 96 MG/DL (70-104); POTASSIUM 4.9 MMOL/L (3.5-5.1); SODIUM 138 MMOL/L (135-145); TOTAL CARBON DIOXIDE 24.6 MMOL/L (24-32); eGFR 9 ML/MIN
== END 2023-07-23 23:59 | disposition home or self-care (01) ==
LOC: LAB 16:36
PROVIDERS: ATTEND Internal Medicine
DX: N17.0 Acute kidney failure with tubular necrosis (principal)
CPT/HCPCS: 36415; 80048

== ENCOUNTER 2023-09-20 09:19 | Outpatient (CLI) | payer BC, MEDICARE ==
[~2023-09-20] VITALS: Ht 167.6 cm; Wt 120.0 kg
[2023-09-20] MEDS ORDERED: nitroGLYCERIN 0.4mg SUBLingual tab SL PRN (10:35)
[2023-09-20] MEDS ORDERED: normal saline 500ml IV soln 500 ML IV ONE (10:35)
[2023-09-20] MEDS ORDERED: aminophylline 250mg/10ml inj. IV PRN (10:35)
[2023-09-20] MEDS ORDERED: regadenoson 0.4mg/5ml syringe IV ONE (10:35)
[2023-09-20 11:12] VITALS: BP 87/47; PULSE 67; RESP 18; O2SAT 98
[2023-09-20 11:27] VITALS: BP 90/50
== END 2023-09-20 23:59 | disposition home or self-care (01) ==
LOC: RAD 09:19
PROVIDERS: ATTEND Internal Medicine Cardiovascular Disease
DX: I50.30 Unspecified diastolic (congestive) heart failure (principal); I25.10 Atherosclerotic heart disease of native coronary artery without angina pectoris; I42.9 Cardiomyopathy, unspecified; I34.81 Nonrheumatic mitral (valve) annulus calcification
CPT/HCPCS: 78451; 93306; A9500; J7040; J0280; J2785

== ENCOUNTER 2023-09-23 03:26 | Inpatient (IN) | payer BC, MEDICARE ==
[~2023-09-23] VITALS: Ht 172.7 cm; Wt 118.4 kg
[2023-09-23] MEDS ORDERED: ondansetron 4mg rapidly disintigrating tab PO ONE (04:05)
[2023-09-23] MEDS ORDERED: HYDROcodone/acetaminophen 5mg/325mg tablet PO ONE (04:05)
[2023-09-23 04:51] LABS: BILIRUBIN,URINE NEGATIVE (Neg); CLARITY,URINE TURBID (Clear); COLOR,URINE YELLOW (Yellow); GLUCOSE, URINE NEGATIVE (Neg); KETONES,URINE NEGATIVE (Neg); LEUKOCYTE ESTERASE ,URINE LARGE (Neg); NITRITES, URINE NEGATIVE (Neg); OCCULT BLOOD,URINE MODERATE (Neg); PROTEIN,URINE 100 mg/dl (Neg); UROBILINOGEN,URINE 0.2 E.U/dL (0.2-1.0)
[2023-09-23 04:56] LABS: UA COLLECTION TYPE FOLEY CATH
[2023-09-23 04:58] LABS: BASOPHILS % (AUTO) 0.5 % (0-1); EOSINOPHILS # (AUTO) 0.1 X10'3 (0-0.9); EOSINOPHILS % (AUTO) 1.1 % (0-6); HEMATOCRIT 27.6 % (42.0-52.0); HEMOGLOBIN 8.6 g/dl (14.0-17.9); LYMPHOCYTES # (AUTO) 1.2 X10'3 (1.1-4.8); LYMPHOCYTES % (AUTO) 11.6 % (21-51); MEAN CORPUSCULAR HEMOGLOBIN 25.9 PG (27.0-31.0); MEAN CORPUSCULAR HGB CONC 31.2 g/dL (33.0-36.5); MEAN PLATELET VOLUME 6.5 FL (7.4-10.4); MONOCYTES % (AUTO) 9.8 % (2-12); NEUTROPHILS # (AUTO) 8.1 X10'3 (1.8-7.7); PLATELET COUNT 253 X10'3 (140-440); RED BLOOD COUNT 3.32 X10'6 (4.70-6.10); RED CELL DISTRIBUTION WIDTH 16.3 % (11.5-14.5); WHITE BLOOD COUNT 10.5 X10'3 (4.5-11.0)
[2023-09-23 05:02] LABS: BACTERIA,URINE 3+ /HPF (Neg); SQUAMOUS EPITHELIAL CELL,UR NONE SEEN /LPF (FEW)
[2023-09-23 05:05] LABS: WBC,URINE TNTC /HPF (0-4)
[2023-09-23 05:19] LABS: ALANINE AMINOTRANSFERASE 11 U/L (12-78); ALBUMIN 2.3 G/DL (3.4-5.0); ALBUMIN/GLOBULIN RATIO 0.5 (1.1-1.5); ALKALINE PHOSPHATASE 112 IU/L (46-116); ANION GAP 16 (8-16); ASPARTATE AMINO TRANSFERASE 5 U/L (10-37); BILIRUBIN,TOTAL 0.3 MG/DL (0.1-1.0); BLOOD UREA NITROGEN 76 MG/DL (7-18); BUN/CREATININE RATIO 9.2 (10.0-20.0); CALCIUM 9.9 MG/DL (8.5-10.1); CHLORIDE 107 MMOL/L (99-107); CREATININE 8.29 MG/DL (0.60-1.10); GLUCOSE 113 MG/DL (70-104); LIPASE 58 U/L (16-77); POTASSIUM 3.9 MMOL/L (3.5-5.1); SODIUM 138 MMOL/L (135-145); TOTAL PROTEIN 6.9 G/DL (6.4-8.2); eCRCL 8 ML/MIN; eGFR 6 ML/MIN
[2023-09-23 05:22] LABS: TOTAL CARBON DIOXIDE 14.6 MMOL/L (24-32)
[2023-09-23] MEDS ORDERED: CefTRIAXone/D5W-Rocephin 1gm 50 ML IV ONE (05:45)
--- NOTE | 2023-09-23 06:00 | NUR ---
rt paged for ABG
--- NOTE | 2023-09-23 06:09 | NUR ---
rt at bedside
[2023-09-23] MEDS ORDERED: potassium Cl 20 mEq SR tablet PO PRN (09:25)
[2023-09-23] MEDS ORDERED: acetaminophen 325mg tablet PO PRN (09:25)
[2023-09-23] MEDS ORDERED: magnesium 2GM in 50ml NS 50 ML IV PRN (09:25)
[2023-09-23] MEDS ORDERED: albuterol 2.5 MG/3 ML nebule NEB PRN (09:25)
[2023-09-23] MEDS ORDERED: ondansetron/PF 4mg/2ml inj IV PRN (09:25)
[2023-09-23] MEDS ORDERED: magnesium 4gm in 100ml NS 100 ML IV PRN (09:25)
[2023-09-23] MEDS ORDERED: potassium Cl 40MEQ/1/2NS 520ml 520 ML IV PRN (09:25)
--- NOTE | 2023-09-23 10:53 | NUR ---
Paged RT regarding ABG
[2023-09-23 11:18] LABS: ABG BASE EXCESS -14.3 mmol/L (-2.0-2.0); ABG OXYGEN SATURATION 94.5 % (94-97); ABG PCO2 (T) 35.8 mmHg (35.0-48.0); ABG PH (T) 7.177 (7.340-7.440); ABG PO2 (T) 81.6 mmHg (75.0-100.0); ALLEN'S TEST POSITIVE; FCOHb 1.3 % (0.0-3.9); FHHb 5.4 % (0.0-5.0); FLOW 3 L/min; FMetHb 0.3 % (0.0-1.5); MODE NASAL CANNULA; TOTAL HEMOGLOBIN 8.6 G/dl (14.0-17.9)
[2023-09-23] MEDS: sodium bicarbonate (8.4%) inj. 150 MEQ in dextrose 5%-water 1,000 ML IV SCH (12:15)
[2023-09-23 14:10] VITALS: PULSE 86; RESP 18; O2SAT 98
[2023-09-23] MEDS: oxyCODONE IR 5mg (immed. release) tablet PO PRN (15:38)
[2023-09-23] MEDS: heparin, porcine 5000 units/ml vial SQ SCH (16:31)
[2023-09-23 18:00] VITALS: BP 90/48; PULSE 86; RESP 16; TEMP 98.6; O2SAT 98
--- NOTE | 2023-09-23 18:50 | NUR ---
Problems reprioritized. Patient report given, questions answered & plan of care reviewed with LORENA MELENDEZ.
--- NOTE | 2023-09-23 18:50 | NUR ---
Patient in room ORTHO 4009. I have received report from LORENA Collazo and had the opportunity to ask questions and assume patient care.
[2023-09-23] MEDS: K and/or MAG REPLACEMENT MC SCH (20:00)
[2023-09-23 20:30] VITALS: RESP 16; O2SAT 98
[2023-09-23 21:07] VITALS: PULSE 84; RESP 18; O2SAT 96
[2023-09-23] MEDS: docusate sod 100mg capsule PO SCH (21:31)
[2023-09-23 22:00] VITALS: BP 102/61; PULSE 87; RESP 16; TEMP 98.5; O2SAT 96
[2023-09-24] VITALS (8 sets, daily range): BP systolic 103–119; BP diastolic 62–69; PULSE 84–108; RESP 18–20; TEMP 97.8–98.8; O2SAT 93–97
[2023-09-24] MEDS: heparin, porcine 5000 units/ml vial SQ SCH ×3 (00:11→16:00)
[2023-09-24 00:20] LABS: TOTAL PROTEIN,URINE RANDOM 72.1 MG/DL
[2023-09-24 00:39] LABS: CLARITY,URINE TURBID (Clear); COLOR,URINE STRAW (Yellow); PH,URINE 6.5 (4.8-8.0); UA COLLECTION TYPE FOLEY CATH
[2023-09-24 00:40] LABS: BILIRUBIN,URINE NEGATIVE (Neg); GLUCOSE, URINE NEGATIVE (Neg); KETONES,URINE NEGATIVE (Neg); LEUKOCYTE ESTERASE ,URINE LARGE (Neg); NITRITES, URINE NEGATIVE (Neg); OCCULT BLOOD,URINE LARGE (Neg); PROTEIN,URINE 30 mg/dl (Neg); UROBILINOGEN,URINE 0.2 E.U/dL (0.2-1.0)
[2023-09-24 00:45] LABS: SQUAMOUS EPITHELIAL CELL,UR NONE SEEN /LPF (FEW)
[2023-09-24 00:46] LABS: TRANSITIONAL EPI CELLS,URINE MODERATE /HPF; WBC,URINE TNTC /HPF (0-4)
[2023-09-24 00:47] LABS: BACTERIA,URINE 3+ /HPF (Neg)
[2023-09-24] MEDS: sodium bicarbonate (8.4%) inj. 150 MEQ in dextrose 5%-water 1,000 ML IV SCH ×3 (02:00→22:00)
[2023-09-24 02:07] LABS: UA EOSINOPHILS MOD EOS /HPF
[2023-09-24] MEDS: oxyCODONE IR 5mg (immed. release) tablet PO PRN ×2 (05:16→22:34)
[2023-09-24 06:15] LABS: BASOPHILS % (AUTO) 0.4 % (0-1); EOSINOPHILS # (AUTO) 0.2 X10'3 (0-0.9); EOSINOPHILS % (AUTO) 2.1 % (0-6); HEMATOCRIT 22.6 % (42.0-52.0); HEMOGLOBIN 7.3 g/dl (14.0-17.9); LYMPHOCYTES # (AUTO) 1.3 X10'3 (1.1-4.8); LYMPHOCYTES % (AUTO) 16.2 % (21-51); MEAN CORPUSCULAR HGB CONC 32.1 g/dL (33.0-36.5); MEAN CORPUSCULAR VOLUME 80.9 FL (78-98); MEAN PLATELET VOLUME 6.4 FL (7.4-10.4); MONOCYTES # (AUTO) 0.8 X10'3 (0-0.9); MONOCYTES % (AUTO) 10.3 % (2-12); NEUTROPHILS # (AUTO) 5.6 X10'3 (1.8-7.7); PLATELET COUNT 257 X10'3 (140-440); RED CELL DISTRIBUTION WIDTH 16.6 % (11.5-14.5); WHITE BLOOD COUNT 7.9 X10'3 (4.5-11.0)
[2023-09-24 06:30] LABS: ALANINE AMINOTRANSFERASE 8 U/L (12-78); ALBUMIN/GLOBULIN RATIO 0.5 (1.1-1.5); ALKALINE PHOSPHATASE 92 IU/L (46-116); ANION GAP 11 (8-16); ASPARTATE AMINO TRANSFERASE 4 U/L (10-37); BILIRUBIN,TOTAL 0.3 MG/DL (0.1-1.0); BLOOD UREA NITROGEN 69 MG/DL (7-18); BUN/CREATININE RATIO 9.2 (10.0-20.0); CALCIUM 8.5 MG/DL (8.5-10.1); CHLORIDE 103 MMOL/L (99-107); CREATININE 7.48 MG/DL (0.60-1.10); GLUCOSE 122 MG/DL (70-104); MAGNESIUM 1.8 MG/DL (1.5-2.4); POTASSIUM 3.3 MMOL/L (3.5-5.1); SODIUM 134 MMOL/L (135-145); TOTAL CARBON DIOXIDE 19.7 MMOL/L (24-32); eCRCL 9 ML/MIN; eGFR 7 ML/MIN
--- NOTE | 2023-09-24 06:42 | NUR ---
Problems reprioritized. Patient report given, questions answered & plan of care reviewed with LORENA Lau.
--- NOTE | 2023-09-24 06:59 | NUR ---
Patient in room ORTHO 4009. I have received report from NORA CARRILLO and had the opportunity to ask questions and assume patient care.
[2023-09-24] MEDS: docusate sod 100mg capsule PO SCH ×2 (07:32→22:03)
[2023-09-24] MEDS: CefTRIAXone/D5W-Rocephin 1gm 50 ML IV SCH (07:33)
[2023-09-24] MEDS: K and/or MAG REPLACEMENT MC SCH ×2 (08:00→22:03)
[2023-09-24] MEDS ORDERED: OXYC-150 PO (08:58)
[2023-09-24] MEDS ORDERED: ALBU90AE INH (08:58)
[2023-09-24] MEDS ORDERED: POTA-192 PO (08:58)
[2023-09-24] MEDS ORDERED: GABA600T13 PO (08:58)
[2023-09-24] MEDS ORDERED: LOSA-415 PO (08:58)
[2023-09-24] MEDS ORDERED: FURO-150 PO (08:58)
[2023-09-24] MEDS ORDERED: CHOL200074 PO (08:58)
[2023-09-24] MEDS ORDERED: ADV50250 (08:58)
--- NOTE | 2023-09-24 09:34 | NUR ---
Page Sent PAGER ID: [phone] MESSAGE: [phone] stewart begum, pt h/h went down to 7.3/22.6 and k is 3.3. lacy [id number]
--- NOTE | 2023-09-24 10:00 | NUR ---
is aware of pts h/h, no new orders at this time. K may be replaced per protocol
[2023-09-24] MEDS: potassium Cl 20 mEq SR tablet PO PRN ×3 (13:19→22:02)
[2023-09-24] MEDS: nystatin 15 GM powder TP SCH ×2 (13:20→22:10)
[2023-09-24] MEDS: acetaminophen 325mg tablet PO PRN (13:27)
[2023-09-24] MEDS: ipratropium/albuterol 3ml nebule NEB PRN (16:48)
--- NOTE | 2023-09-24 18:55 | NUR ---
Patient in room ORTHO 4009. I have received report from Judi CARRILLO and had the opportunity to ask questions and assume patient care.
--- NOTE | 2023-09-24 19:09 | NUR ---
Problems reprioritized. Patient report given, questions answered & plan of care reviewed with leona archibald.
[2023-09-24] MEDS ORDERED: diazepam 5mg tablet PO PRN (19:25)
[2023-09-24] MEDS ORDERED: oxyCODONE/APAP 10/325mg tablet PO PRN (19:25)
[2023-09-24] MEDS: losartan 25mg tablet PO SCH (21:00)
[2023-09-24] MEDS: gabapentin 100mg capsule PO SCH (22:05)
[2023-09-24] MEDS: cholecalciferol (vitamin D3) 1,000 unit (25mcg) tablet PO SCH (22:05)
[2023-09-24] MEDS: carvedilol 6.25mg tablet PO SCH (22:11)
[2023-09-25] VITALS (8 sets, daily range): BP systolic 101–119; BP diastolic 61–72; PULSE 76–85; RESP 16–20; TEMP 98–98.6; O2SAT 93–96
[2023-09-25] MEDS: heparin, porcine 5000 units/ml vial SQ SCH ×3 (00:23→16:26)
[2023-09-25 06:19] LABS: BASOPHILS % (AUTO) 0.5 % (0-1); EOSINOPHILS # (AUTO) 0.2 X10'3 (0-0.9); EOSINOPHILS % (AUTO) 2.6 % (0-6); HEMATOCRIT 22.4 % (42.0-52.0); HEMOGLOBIN 7.2 g/dl (14.0-17.9); LYMPHOCYTES # (AUTO) 1.9 X10'3 (1.1-4.8); LYMPHOCYTES % (AUTO) 24.4 % (21-51); MEAN CORPUSCULAR HEMOGLOBIN 25.9 PG (27.0-31.0); MEAN CORPUSCULAR HGB CONC 32.3 g/dL (33.0-36.5); MEAN CORPUSCULAR VOLUME 80.3 FL (78-98); MEAN PLATELET VOLUME 6.1 FL (7.4-10.4); MONOCYTES # (AUTO) 1.1 X10'3 (0-0.9); MONOCYTES % (AUTO) 14.1 % (2-12); NEUTROPHILS # (AUTO) 4.6 X10'3 (1.8-7.7); NEUTROPHILS % (AUTO) 58.4 % (42-75); PLATELET COUNT 266 X10'3 (140-440); RED BLOOD COUNT 2.79 X10'6 (4.70-6.10); RED CELL DISTRIBUTION WIDTH 16.3 % (11.5-14.5); WHITE BLOOD COUNT 7.8 X10'3 (4.5-11.0)
--- NOTE | 2023-09-25 06:30 | NUR ---
Problems reprioritized. Patient report given, questions answered & plan of care reviewed with Cherelle LOUIS.
[2023-09-25 06:34] LABS: ALANINE AMINOTRANSFERASE 9 U/L (12-78); ALBUMIN/GLOBULIN RATIO 0.5 (1.1-1.5); ALKALINE PHOSPHATASE 88 IU/L (46-116); ANION GAP 13 (8-16); ASPARTATE AMINO TRANSFERASE 8 U/L (10-37); BILIRUBIN,TOTAL 0.3 MG/DL (0.1-1.0); BLOOD UREA NITROGEN 70 MG/DL (7-18); BUN/CREATININE RATIO 10.3 (10.0-20.0); CALCIUM 8.8 MG/DL (8.5-10.1); CHLORIDE 103 MMOL/L (99-107); CREATININE 6.77 MG/DL (0.60-1.10); GLUCOSE 113 MG/DL (70-104); MAGNESIUM 1.9 MG/DL (1.5-2.4); POTASSIUM 3.1 MMOL/L (3.5-5.1); SODIUM 138 MMOL/L (135-145); TOTAL CARBON DIOXIDE 22.2 MMOL/L (24-32); TOTAL PROTEIN 6.1 G/DL (6.4-8.2); eCRCL 10 ML/MIN; eGFR 8 ML/MIN
--- NOTE | 2023-09-25 06:40 | NUR ---
I have received report from Marta and had the opportunity to ask questions and assume patient care. No distress at this time.
[2023-09-25] MEDS: K and/or MAG REPLACEMENT MC SCH ×2 (07:19→20:16)
[2023-09-25] MEDS: nystatin 15 GM powder TP SCH ×3 (08:32→20:17)
[2023-09-25] MEDS: potassium Cl 20 mEq SR tablet PO PRN ×3 (08:58→17:03)
[2023-09-25] MEDS: vitamin B comp w/Vit. C tab 1 TAB TABLET PO SCH (08:58)
[2023-09-25] MEDS: docusate sod 100mg capsule PO SCH ×2 (08:58→20:10)
[2023-09-25] MEDS: duloxetine 30mg CAPSULE.DR PO SCH (08:58)
[2023-09-25] MEDS: multivitamins, therapeutics tablet PO SCH (08:59)
[2023-09-25] MEDS: carvedilol 6.25mg tablet PO SCH ×2 (08:59→20:10)
[2023-09-25] MEDS: CefTRIAXone/D5W-Rocephin 1gm 50 ML IV SCH (09:19)
[2023-09-25] MEDS: sodium bicarbonate (8.4%) inj. 150 MEQ in dextrose 5%-water 1,000 ML IV SCH ×2 (09:31→21:15)
[2023-09-25] MEDS: oxyCODONE IR 5mg (immed. release) tablet PO PRN (10:29)
[2023-09-25] MEDS: acetaminophen 325mg tablet PO PRN (17:03)
--- NOTE | 2023-09-25 17:08 | NUR ---
PRESSURE ULCER EDUCATION: DEFINITION: A pressure ulcer is an area of skin that breaks down when you stay in one position too long. The constant pressure against the skin reduces the blood flow to that area and the affected tissue dies. CAUSES: "Being bedridden or in a wheelchair "Fragile skin "Having a chronic condition, such as diabetes or vascular disease "Inability to move certain parts of your body without assistance "Older age "Incontinence of urine or stool SYMPTOMS: "A reddened area that DOES NOT turn white when pressed on - this can be the beginning of a pressure ulcer "A blister, deep sore or a crater - these can be advanced pressure ulcers FIRST AID: "Relieve the pressure on this area "Keep the area clean and dry "Call your primary doctor if you see any of the above symptoms "DO NOT massage the area "DO NOT use a donut shaped or ring shaped pillow- these actually interfere with the blood flow and cause complications PREVENTION: "Check for pressure ulcers everyday "Change position at least every two hours to relieve pressure "Use items that help relieve pressure- pillows, sheepskin, foam padding, and powders. "Keep skin clean and dry "Eat healthy well balanced meals "Exercise daily IF YOU SEE ANY OF THESE SYMPTOMS WHILE IN THE HOSPITAL - TELL YOUR NURSE IMMEDIATELY. IF YOU SEE ANY OF THESE SYMPTOMS WHILE AT HOME OR HAVE ANY QUESTIONS OR CONCERNS ABOUT PRESSURE ULCERS - CALL YOUR PRIMARY DOCTOR IMMEDIATELY. Addendum: 09/25/23 at 1709 by Iris Hayes LVN Amended: Links added.
[2023-09-25] MEDS: cholecalciferol (vitamin D3) 1,000 unit (25mcg) tablet PO SCH (20:10)
[2023-09-25] MEDS: gabapentin 100mg capsule PO SCH (20:10)
[2023-09-25] MEDS: losartan 25mg tablet PO SCH (20:11)
[2023-09-26] VITALS (12 sets, daily range): BP systolic 99–123; BP diastolic 59–79; PULSE 73–86; RESP 16–18; TEMP 98.1–98.8; O2SAT 94–98
[2023-09-26] MEDS: heparin, porcine 5000 units/ml vial SQ SCH ×3 (00:40→16:49)
[2023-09-26] MEDS: oxyCODONE IR 5mg (immed. release) tablet PO PRN ×3 (04:08→20:38)
--- NOTE | 2023-09-26 06:20 | NUR ---
REPORT GIVEN BY SOHAM LOUIS
--- NOTE | 2023-09-26 06:27 | NUR ---
Report to China CARRILLO
[2023-09-26 06:29] LABS: BASOPHILS # (AUTO) 0.1 X10'3 (0-0.2); BASOPHILS % (AUTO) 0.7 % (0-1); EOSINOPHILS # (AUTO) 0.3 X10'3 (0-0.9); EOSINOPHILS % (AUTO) 3.7 % (0-6); HEMATOCRIT 23.9 % (42.0-52.0); HEMOGLOBIN 7.8 g/dl (14.0-17.9); LYMPHOCYTES # (AUTO) 1.6 X10'3 (1.1-4.8); LYMPHOCYTES % (AUTO) 19.6 % (21-51); MEAN CORPUSCULAR HEMOGLOBIN 26.2 PG (27.0-31.0); MEAN CORPUSCULAR HGB CONC 32.6 g/dL (33.0-36.5); MEAN CORPUSCULAR VOLUME 80.4 FL (78-98); MEAN PLATELET VOLUME 6.3 FL (7.4-10.4); MONOCYTES # (AUTO) 0.8 X10'3 (0-0.9); MONOCYTES % (AUTO) 10.4 % (2-12); NEUTROPHILS # (AUTO) 5.3 X10'3 (1.8-7.7); NEUTROPHILS % (AUTO) 65.6 % (42-75); PLATELET COUNT 302 X10'3 (140-440); RED BLOOD COUNT 2.97 X10'6 (4.70-6.10); RED CELL DISTRIBUTION WIDTH 16.3 % (11.5-14.5); WHITE BLOOD COUNT 8.1 X10'3 (4.5-11.0)
[2023-09-26 06:36] LABS: ALANINE AMINOTRANSFERASE 7 U/L (12-78); ALBUMIN 2.1 G/DL (3.4-5.0); ALBUMIN/GLOBULIN RATIO 0.5 (1.1-1.5); ALKALINE PHOSPHATASE 85 IU/L (46-116); ANION GAP 10 (8-16); ASPARTATE AMINO TRANSFERASE 8 U/L (10-37); BILIRUBIN,TOTAL 0.3 MG/DL (0.1-1.0); BLOOD UREA NITROGEN 60 MG/DL (7-18); BUN/CREATININE RATIO 10.5 (10.0-20.0); CALCIUM 8.9 MG/DL (8.5-10.1); CHLORIDE 100 MMOL/L (99-107); CREATININE 5.69 MG/DL (0.60-1.10); GLUCOSE 134 MG/DL (70-104); MAGNESIUM 1.7 MG/DL (1.5-2.4); POTASSIUM 3.8 MMOL/L (3.5-5.1); SODIUM 139 MMOL/L (135-145); TOTAL CARBON DIOXIDE 29.3 MMOL/L (24-32); TOTAL PROTEIN 6.3 G/DL (6.4-8.2); eCRCL 12 ML/MIN; eGFR 10 ML/MIN
--- NOTE | 2023-09-26 06:49 | NUR ---
I have reviewed and agree with all interventions, assessments performed and documented by HERIBERTO ROUSSEAU
[2023-09-26] MEDS: K and/or MAG REPLACEMENT MC SCH ×2 (08:00→20:00)
[2023-09-26] MEDS: vitamin B comp w/Vit. C tab 1 TAB TABLET PO SCH (08:43)
[2023-09-26] MEDS: nystatin 15 GM powder TP SCH ×3 (08:43→20:32)
[2023-09-26] MEDS: multivitamins, therapeutics tablet PO SCH (08:43)
[2023-09-26] MEDS: sodium bicarbonate (8.4%) inj. 150 MEQ in dextrose 5%-water 1,000 ML IV SCH ×2 (08:43→09:15)
[2023-09-26] MEDS: CefTRIAXone/D5W-Rocephin 1gm 50 ML IV SCH (08:43)
[2023-09-26] MEDS: docusate sod 100mg capsule PO SCH ×2 (08:43→20:31)
[2023-09-26] MEDS: duloxetine 30mg CAPSULE.DR PO SCH (08:44)
[2023-09-26] MEDS: carvedilol 6.25mg tablet PO SCH ×2 (08:49→20:32)
[2023-09-26] MEDS: acetaminophen 325mg tablet PO PRN (08:52)
--- NOTE | 2023-09-26 16:33 | NUR ---
physical assessment charting reviewed with Student RN
--- NOTE | 2023-09-26 20:00 | NUR ---
pt reporting poor pain control. received telephone order from Dr. Uribe to change Oxy IR tablet from Q8H to Q4H.
[2023-09-26] MEDS: cholecalciferol (vitamin D3) 1,000 unit (25mcg) tablet PO SCH (20:30)
[2023-09-26] MEDS: losartan 25mg tablet PO SCH (20:31)
[2023-09-26] MEDS: gabapentin 100mg capsule PO SCH (20:32)
--- NOTE | 2023-09-26 20:43 | NUR ---
Student documentation: I have reviewed interventions, assessments performed and documented by Shaylee HERMAN [facility].
[2023-09-26] MEDS: ipratropium/albuterol 3ml nebule NEB PRN (21:19)
[2023-09-26] MEDS: ampicillin inj 2 GM in normal saline 100ml IV soln 100 ML IV SCH (21:50)
[2023-09-27] VITALS (12 sets, daily range): BP systolic 109–116; BP diastolic 54–74; PULSE 71–101; RESP 14–20; TEMP 97.1–97.6; O2SAT 92–98
[2023-09-27] MEDS: oxyCODONE IR 5mg (immed. release) tablet PO PRN ×4 (00:38→22:16)
[2023-09-27] MEDS: heparin, porcine 5000 units/ml vial SQ SCH ×3 (00:39→16:53)
--- NOTE | 2023-09-27 06:14 | NUR ---
report to China CARRILLO
[2023-09-27 06:30] LABS: BASOPHILS % (AUTO) 0.7 % (0-1); EOSINOPHILS # (AUTO) 0.3 X10'3 (0-0.9); EOSINOPHILS % (AUTO) 4.6 % (0-6); HEMATOCRIT 23.1 % (42.0-52.0); HEMOGLOBIN 7.4 g/dl (14.0-17.9); LYMPHOCYTES # (AUTO) 1.9 X10'3 (1.1-4.8); LYMPHOCYTES % (AUTO) 26.8 % (21-51); MEAN CORPUSCULAR HEMOGLOBIN 25.9 PG (27.0-31.0); MEAN CORPUSCULAR VOLUME 81.1 FL (78-98); MEAN PLATELET VOLUME 6.3 FL (7.4-10.4); MONOCYTES # (AUTO) 0.9 X10'3 (0-0.9); MONOCYTES % (AUTO) 12.5 % (2-12); NEUTROPHILS % (AUTO) 55.4 % (42-75); PLATELET COUNT 278 X10'3 (140-440); RED BLOOD COUNT 2.84 X10'6 (4.70-6.10); RED CELL DISTRIBUTION WIDTH 16.3 % (11.5-14.5); WHITE BLOOD COUNT 7.2 X10'3 (4.5-11.0)
[2023-09-27 06:41] LABS: ALANINE AMINOTRANSFERASE 6 U/L (12-78); ALBUMIN/GLOBULIN RATIO 0.5 (1.1-1.5); ALKALINE PHOSPHATASE 80 IU/L (46-116); ANION GAP 7 (8-16); ASPARTATE AMINO TRANSFERASE 10 U/L (10-37); BILIRUBIN,TOTAL 0.3 MG/DL (0.1-1.0); BLOOD UREA NITROGEN 58 MG/DL (7-18); BUN/CREATININE RATIO 11.3 (10.0-20.0); CALCIUM 8.9 MG/DL (8.5-10.1); CHLORIDE 101 MMOL/L (99-107); CREATININE 5.13 MG/DL (0.60-1.10); GLUCOSE 97 MG/DL (70-104); MAGNESIUM 1.8 MG/DL (1.5-2.4); POTASSIUM 3.5 MMOL/L (3.5-5.1); SODIUM 139 MMOL/L (135-145); TOTAL CARBON DIOXIDE 30.6 MMOL/L (24-32); TOTAL PROTEIN 6.2 G/DL (6.4-8.2); eCRCL 13 ML/MIN; eGFR 11 ML/MIN
--- NOTE | 2023-09-27 06:49 | NUR ---
Patient in room ORTHO 4009. I have received report from Compa LOUIS and had the opportunity to ask questions and assume patient care.
[2023-09-27] MEDS: K and/or MAG REPLACEMENT MC SCH ×2 (06:50→20:00)
[2023-09-27] MEDS: vitamin B comp w/Vit. C tab 1 TAB TABLET PO SCH (07:20)
[2023-09-27] MEDS: ampicillin inj 2 GM in normal saline 100ml IV soln 100 ML IV SCH ×2 (07:20→19:22)
[2023-09-27] MEDS: multivitamins, therapeutics tablet PO SCH (07:21)
[2023-09-27] MEDS: duloxetine 30mg CAPSULE.DR PO SCH (07:21)
[2023-09-27] MEDS: docusate sod 100mg capsule PO SCH ×2 (07:22→19:38)
[2023-09-27] MEDS: carvedilol 6.25mg tablet PO SCH ×2 (07:22→19:38)
[2023-09-27] MEDS: nystatin 15 GM powder TP SCH ×3 (07:35→21:48)
[2023-09-27] MEDS: ipratropium/albuterol 3ml nebule NEB PRN ×2 (10:58→15:22)
[2023-09-27] MEDS: acetaminophen 325mg tablet PO PRN (13:29)
--- NOTE | 2023-09-27 14:58 | NUR ---
Initial: Pt admit for BRENDA on CKD and metabolic acidosis. Currently on a renal diet and eating well, documented with average 88% PO intake of meals since admit meeting 88% estimated energy needs and 100% estimated protein needs however with average 98% PO intake since 09/25 meeting 98% estimated energy needs and 100% estimated protein needs. Noted pt receiving 2 L Gatorade per solar panel technician. Recommend liberalizing to regular diet as renal function improves as renal diet restricts electrolytes which are currently WNL. LBM 09/26 per EMR. No nutrition intervention implemented at this time. Will continue to follow and make recommendations as appropriate. Recommendations: 1) Advance to regular diet as renal function improves 2) Routine bowel care 3) Weekly scaled weights Addendum: 09/27/23 at [address] Amended: Links added.
--- NOTE | 2023-09-27 16:11 | NUR ---
charting reviewed with Student RN Addendum: 09/27/23 at 1611 by Stefan Jensen INSTRUCTOR LORENA Amended: Links added.
[2023-09-27] MEDS: losartan 25mg tablet PO SCH (20:42)
[2023-09-27] MEDS: gabapentin 100mg capsule PO SCH (20:42)
[2023-09-27] MEDS: cholecalciferol (vitamin D3) 1,000 unit (25mcg) tablet PO SCH (20:42)
--- NOTE | 2023-09-27 22:19 | NUR ---
focused assessment: removed right leg brace per pt request - "I've had it on all day" repositioned to side, noted nonblanching dime size area on right buttock. HERIBERTO Chatman noted as well and will continue to monitor for breakdown. optifoam applied. turned on left side. all systems clear, no edema. f/c dark yellow. A/Ox4. all pulses intact. noted 24 hour urine in process on ice. watching TV.
[2023-09-28] VITALS (8 sets, daily range): BP systolic 83–131; BP diastolic 50–80; PULSE 74–114; RESP 13–18; TEMP 97.5–98.6; O2SAT 95–97
[2023-09-28] MEDS: heparin, porcine 5000 units/ml vial SQ SCH ×4 (00:48→23:49)
[2023-09-28 06:55] LABS: BASOPHILS % (AUTO) 0.7 % (0-1); EOSINOPHILS # (AUTO) 0.4 X10'3 (0-0.9); EOSINOPHILS % (AUTO) 5.5 % (0-6); HEMATOCRIT 23.8 % (42.0-52.0); HEMOGLOBIN 7.6 g/dl (14.0-17.9); LYMPHOCYTES % (AUTO) 14.3 % (21-51); MEAN CORPUSCULAR HEMOGLOBIN 25.9 PG (27.0-31.0); MEAN CORPUSCULAR HGB CONC 31.8 g/dL (33.0-36.5); MEAN CORPUSCULAR VOLUME 81.4 FL (78-98); MEAN PLATELET VOLUME 6.4 FL (7.4-10.4); MONOCYTES # (AUTO) 0.8 X10'3 (0-0.9); MONOCYTES % (AUTO) 12.3 % (2-12); NEUTROPHILS # (AUTO) 4.6 X10'3 (1.8-7.7); NEUTROPHILS % (AUTO) 67.2 % (42-75); PLATELET COUNT 274 X10'3 (140-440); RED BLOOD COUNT 2.92 X10'6 (4.70-6.10); RED CELL DISTRIBUTION WIDTH 16.2 % (11.5-14.5); WHITE BLOOD COUNT 6.8 X10'3 (4.5-11.0)
[2023-09-28 07:13] LABS: ALANINE AMINOTRANSFERASE 9 U/L (12-78); ALBUMIN 2.1 G/DL (3.4-5.0); ALBUMIN/GLOBULIN RATIO 0.5 (1.1-1.5); ALKALINE PHOSPHATASE 82 IU/L (46-116); ANION GAP 9 (8-16); ASPARTATE AMINO TRANSFERASE 7 U/L (10-37); BILIRUBIN,TOTAL 0.3 MG/DL (0.1-1.0); BLOOD UREA NITROGEN 52 MG/DL (7-18); BUN/CREATININE RATIO 10.1 (10.0-20.0); CHLORIDE 102 MMOL/L (99-107); CREATININE 5.16 MG/DL (0.60-1.10); GLUCOSE 98 MG/DL (70-104); MAGNESIUM 1.8 MG/DL (1.5-2.4); POTASSIUM 3.8 MMOL/L (3.5-5.1); SODIUM 139 MMOL/L (135-145); TOTAL CARBON DIOXIDE 27.8 MMOL/L (24-32); TOTAL PROTEIN 6.2 G/DL (6.4-8.2); eCRCL 13 ML/MIN; eGFR 11 ML/MIN
--- NOTE | 2023-09-28 07:52 | NUR ---
Late Entry: Agree with WOC FEDERAL APPELLATE LAW CLERK documentation
[2023-09-28] MEDS: K and/or MAG REPLACEMENT MC SCH ×2 (08:00→20:00)
[2023-09-28] MEDS: docusate sod 100mg capsule PO SCH ×2 (08:00→20:00)
[2023-09-28] MEDS: ampicillin inj 2 GM in normal saline 100ml IV soln 100 ML IV SCH ×2 (11:00→20:02)
[2023-09-28] MEDS: duloxetine 30mg CAPSULE.DR PO SCH (11:01)
[2023-09-28] MEDS: carvedilol 6.25mg tablet PO SCH ×2 (11:01→20:04)
[2023-09-28] MEDS: multivitamins, therapeutics tablet PO SCH (11:02)
[2023-09-28] MEDS: vitamin B comp w/Vit. C tab 1 TAB TABLET PO SCH (11:02)
[2023-09-28] MEDS: oxyCODONE IR 5mg (immed. release) tablet PO PRN ×2 (11:02→20:05)
[2023-09-28] MEDS: nystatin 15 GM powder TP SCH ×3 (11:04→20:06)
[2023-09-28 12:41] LABS: TOTAL PROTEIN 24HR,URINE 1381.8 MG/24HR (28-141); UREA NITROGEN 24HR,URINE 6.5 GM/24HR (7-20)
[2023-09-28] MEDS ORDERED: LidoCAINE 2% Topical Jelly 11mL syringe TOP ONE (12:45)
--- NOTE | 2023-09-28 17:46 | NUR ---
Duval CHANGED- PT. TOLERATED WELL.
--- NOTE | 2023-09-28 18:19 | NUR ---
Gave report to Abbi CARRILLO
[2023-09-28] MEDS: losartan 25mg tablet PO SCH (20:03)
[2023-09-28] MEDS: cholecalciferol (vitamin D3) 1,000 unit (25mcg) tablet PO SCH (20:04)
[2023-09-28] MEDS: gabapentin 100mg capsule PO SCH (20:04)
[2023-09-29] MEDS: oxyCODONE IR 5mg (immed. release) tablet PO PRN ×2 (05:06→09:19)
--- NOTE | 2023-09-29 06:51 | NUR ---
Problems reprioritized. Patient report given, questions answered & plan of care reviewed with HERIBERTO Mar.
[2023-09-29 08:00] VITALS: BP 112/72; PULSE 66; RESP 17; O2SAT 98
[2023-09-29] MEDS: heparin, porcine 5000 units/ml vial SQ SCH (08:00)
[2023-09-29] MEDS: K and/or MAG REPLACEMENT MC SCH (08:00)
[2023-09-29] MEDS: nystatin 15 GM powder TP SCH ×2 (08:00→13:07)
[2023-09-29] MEDS: ampicillin inj 2 GM in normal saline 100ml IV soln 100 ML IV SCH (08:41)
[2023-09-29] MEDS: duloxetine 30mg CAPSULE.DR PO SCH (09:11)
[2023-09-29] MEDS: vitamin B comp w/Vit. C tab 1 TAB TABLET PO SCH (09:11)
[2023-09-29] MEDS: carvedilol 6.25mg tablet PO SCH (09:12)
[2023-09-29] MEDS: docusate sod 100mg capsule PO SCH (09:12)
[2023-09-29] MEDS: multivitamins, therapeutics tablet PO SCH (09:12)
[2023-09-29 09:47] LABS: BASOPHILS # (AUTO) 0.1 X10'3 (0-0.2); BASOPHILS % (AUTO) 0.9 % (0-1); EOSINOPHILS # (AUTO) 0.3 X10'3 (0-0.9); EOSINOPHILS % (AUTO) 4.5 % (0-6); HEMOGLOBIN 7.4 g/dl (14.0-17.9); LYMPHOCYTES # (AUTO) 1.1 X10'3 (1.1-4.8); LYMPHOCYTES % (AUTO) 15.5 % (21-51); MEAN CORPUSCULAR HEMOGLOBIN 25.5 PG (27.0-31.0); MEAN CORPUSCULAR HGB CONC 30.9 g/dL (33.0-36.5); MEAN CORPUSCULAR VOLUME 82.5 FL (78-98); MEAN PLATELET VOLUME 6.2 FL (7.4-10.4); MONOCYTES # (AUTO) 0.8 X10'3 (0-0.9); MONOCYTES % (AUTO) 12.4 % (2-12); NEUTROPHILS # (AUTO) 4.6 X10'3 (1.8-7.7); NEUTROPHILS % (AUTO) 66.7 % (42-75); PLATELET COUNT 273 X10'3 (140-440); RED CELL DISTRIBUTION WIDTH 16.5 % (11.5-14.5); WHITE BLOOD COUNT 6.8 X10'3 (4.5-11.0)
[2023-09-29 10:00] VITALS: BP 95/49; PULSE 94; RESP 18; TEMP 98.4; O2SAT 96
[2023-09-29 10:07] LABS: ALBUMIN 2.1 G/DL (3.4-5.0); ALBUMIN/GLOBULIN RATIO 0.5 (1.1-1.5); ALKALINE PHOSPHATASE 78 IU/L (46-116); ANION GAP 11 (8-16); ASPARTATE AMINO TRANSFERASE 9 U/L (10-37); BILIRUBIN,TOTAL 0.3 MG/DL (0.1-1.0); BLOOD UREA NITROGEN 57 MG/DL (7-18); CALCIUM 8.7 MG/DL (8.5-10.1); CHLORIDE 100 MMOL/L (99-107); CREATININE 5.17 MG/DL (0.60-1.10); GLUCOSE 159 MG/DL (70-104); POTASSIUM 3.5 MMOL/L (3.5-5.1); SODIUM 135 MMOL/L (135-145); TOTAL CARBON DIOXIDE 24.3 MMOL/L (24-32); TOTAL PROTEIN 6.2 G/DL (6.4-8.2); eCRCL 13 ML/MIN; eGFR 11 ML/MIN
[2023-09-29 10:10] LABS: ALANINE AMINOTRANSFERASE < 6 U/L (12-78)
[2023-09-29] MEDS ORDERED: oxyCODONE/APAP 10/325mg tablet PO PRN (13:40)
--- NOTE | 2023-09-29 14:55 | NUR ---
I HAVE LOOKED OVER IVAN PHYSICAL ASSESSMENT AND AGREE WITH THE EXAM. LORENA SHEFFIELD
[2023-09-29 15:30] VITALS: PULSE 86; RESP 17; O2SAT 93
== END 2023-09-29 16:10 | disposition home health service (06) | DRG 690 ==
LOC: ER 03:27 → ED HOLD 09:28 → EDBEDREQ 12:50 → ORTHO 4S 14:40
PROVIDERS: ADMIT Family Medicine; ATTEND Family Medicine
DX: N13.6 Pyonephrosis (principal); I50.30 Unspecified diastolic (congestive) heart failure; J96.10 Chronic respiratory failure, unspecified whether with hypoxia or hypercapnia; E87.20 Acidosis, unspecified; N17.0 Acute kidney failure with tubular necrosis; N40.0 Benign prostatic hyperplasia without lower urinary tract symptoms; J44.9 Chronic obstructive pulmonary disease, unspecified; G47.33 Obstructive sleep apnea (adult) (pediatric); E87.6 Hypokalemia; D64.9 Anemia, unspecified; T83.018A Breakdown (mechanical) of other urinary catheter, initial encounter; I11.0 Hypertensive heart disease with heart failure; K21.9 Gastro-esophageal reflux disease without esophagitis; E11.22 Type 2 diabetes mellitus with diabetic chronic kidney disease; E11.610 Type 2 diabetes mellitus with diabetic neuropathic arthropathy; E11.42 Type 2 diabetes mellitus with diabetic polyneuropathy; K86.89 Other specified diseases of pancreas; E66.01 Morbid (severe) obesity due to excess calories; F41.9 Anxiety disorder, unspecified; N18.6 End stage renal disease; R51.9 Headache, unspecified; B95.1 Streptococcus, group B, as the cause of diseases classified elsewhere; E83.52 Hypercalcemia; D73.89 Other diseases of spleen; Y84.6 Urinary catheterization as the cause of abnormal reaction of the patient, or of later complication, without mention of misadventure at the time of the procedure; Z79.899 Other long term (current) drug therapy; Z80.3 Family history of malignant neoplasm of breast; Z82.3 Family history of stroke; Z83.3 Family history of diabetes mellitus; Z87.442 Personal history of urinary calculi; Z90.49 Acquired absence of other specified parts of digestive tract; Y92.89 Other specified places as the place of occurrence of the external cause; Z91.041 Radiographic dye allergy status; Z91.030 Bee allergy status; Z87.891 Personal history of nicotine dependence; Z68.39 Body mass index [BMI] 39.0-39.9, adult
CPT/HCPCS: 36415; 36600; 73721; 74176; 80053; 81001; 81003; 82306; 82570; 82803; 83690; 83735; 83970; 84105; 84145; 84156; 84300; 84560; 85018; 85025; 87077; 87081; 87088; 87186; 87207; 94640; 94760; 96365; 97161; 97530; 99285; A4314; A4333; A4615; A5200; A6213; A6449; G0378; J0290; J0696; J1644; J3490; J7070

== ENCOUNTER 2023-10-19 10:35 | Inpatient (IN) | payer BC, MEDICARE ==
[~2023-10-19] VITALS: Ht 172.7 cm; Wt 120.3 kg
[~2023-10-19 10:35] MED LIST changes: +ADV50250; -ALBU2.5V10 NEB; +ALBU90AE INH; -AVO0.5C PO; -CHOL20002 PO; +CHOL200074 PO; -FERR325T34 PO; -FLO0.4C PO; -FLUC200T28 PO; -FLUT16SP20 BOTHNARES; -GABA-530 PO; +GABA600T13 PO; +LOSA-415 PO; -MODA200T48 PO; +OXYC-150 PO; -OXYC1TAB17 PO; +POTA-192 PO; -SODI650T29 PO; -UMEC1DIS INH; +gabapentin 300mg capsule PO ONE
[2023-10-19] MEDS ORDERED: HYDROcodone/acetaminophen 5mg/325mg tablet PO ONE (11:05)
--- NOTE | 2023-10-19 12:11 | NUR ---
TRIAGE COMPLETED AT THIS TIME, PRIMARY RN UNEXPECTANDLY HAD TO LEAVE. PT. TO CT AND BACK VIA [place]. PT. STABLE AT THIS TIME. IV BEING PLACED BY GRACIELA THAO RN.
[2023-10-19] MEDS ORDERED: ringers solution, lacted 1,000 ML IV ONE ×2 (15:20→18:30)
[2023-10-19 15:52] LABS: BASOPHILS % (AUTO) 0.4 % (0-1); EOSINOPHILS # (AUTO) 0.2 X10'3 (0-0.9); EOSINOPHILS % (AUTO) 2.7 % (0-6); HEMATOCRIT 23.3 % (42.0-52.0); HEMOGLOBIN 7.1 g/dl (14.0-17.9); LYMPHOCYTES # (AUTO) 1.1 X10'3 (1.1-4.8); LYMPHOCYTES % (AUTO) 15.7 % (21-51); MEAN CORPUSCULAR HEMOGLOBIN 24.6 PG (27.0-31.0); MEAN CORPUSCULAR HGB CONC 30.5 g/dL (33.0-36.5); MEAN CORPUSCULAR VOLUME 80.7 FL (78-98); MEAN PLATELET VOLUME 6.2 FL (7.4-10.4); MONOCYTES # (AUTO) 0.7 X10'3 (0-0.9); MONOCYTES % (AUTO) 10.6 % (2-12); NEUTROPHILS % (AUTO) 70.6 % (42-75); PLATELET COUNT 201 X10'3 (140-440); RED BLOOD COUNT 2.88 X10'6 (4.70-6.10); RED CELL DISTRIBUTION WIDTH 17.2 % (11.5-14.5)
[2023-10-19 16:02] LABS: APTT 31 SECONDS (22-32); PROTHROMBIN TIME 10.6 SECONDS (9.0-12.0)
[2023-10-19 16:05] LABS: ALANINE AMINOTRANSFERASE 8 U/L (12-78); ALBUMIN/GLOBULIN RATIO 0.5 (1.1-1.5); ALKALINE PHOSPHATASE 102 IU/L (46-116); ANION GAP 17 (8-16); ASPARTATE AMINO TRANSFERASE 8 U/L (10-37); BILIRUBIN,TOTAL 0.3 MG/DL (0.1-1.0); BLOOD UREA NITROGEN 106 MG/DL (7-18); BUN/CREATININE RATIO 10.1 (10.0-20.0); CALCIUM 8.6 MG/DL (8.5-10.1); CHLORIDE 102 MMOL/L (99-107); CREATININE 10.53 MG/DL (0.60-1.10); GLUCOSE 96 MG/DL (70-104); POTASSIUM 5.3 MMOL/L (3.5-5.1); SODIUM 135 MMOL/L (135-145); TOTAL CARBON DIOXIDE 16.1 MMOL/L (24-32); TOTAL PROTEIN 6.2 G/DL (6.4-8.2); eCRCL 6 ML/MIN; eGFR 5 ML/MIN
[2023-10-19 16:15] LABS: PRO BRAIN NATRIURETIC PEPTIDE 1128 PG/ML (0-125)
[2023-10-19] MEDS ORDERED: SODIUM BICARB IV SCH (18:30)
[2023-10-19] MEDS ORDERED: [UNRECOGNIZED DRUG - OTHER] IV SCH (18:30)
[2023-10-19 18:32] LABS: MAGNESIUM 2.3 MG/DL (1.5-2.4)
[2023-10-19 18:37] LABS: ABG BASE EXCESS -12.2 mmol/L (-2.0-2.0); ABG HCO3 14.5 mmol/L (22.0-26.0); ABG OXYGEN SATURATION 98.2 % (94-97); ABG PCO2 (T) 36.3 mmHg (35.0-48.0); ABG PO2 (T) 144.8 mmHg (75.0-100.0); ALLEN'S TEST POSITIVE; FCOHb 1.7 % (0.0-3.9); FHHb 1.8 % (0.0-5.0); FLOW 3 L/min; FMetHb 0.3 % (0.0-1.5); FO2Hb 96.2 % (94-97); MODE NASAL CANNULA; TOTAL HEMOGLOBIN 7.3 G/dl (14.0-17.9)
[2023-10-19 18:50] LABS: % IRON SATURATION 6 % (11-46); IRON 13 UG/DL (53-167); TOTAL IRON BINDING CAPACITY 210 UG/DL (259-388)
[2023-10-19] MEDS ORDERED: magnesium Cl slow-release 64mg tablet PO PRN (18:50)
[2023-10-19] MEDS ORDERED: acetaminophen 325mg tablet PO PRN (18:50)
[2023-10-19] MEDS ORDERED: potassium Cl 20 mEq SR tablet PO PRN ×2 (18:50)
[2023-10-19] MEDS: normal saline 1000ml 1,000 ML IV SCH (18:50)
[2023-10-19] MEDS ORDERED: magnesium 2GM in 50ml NS 50 ML IV PRN (18:50)
[2023-10-19] MEDS ORDERED: ondansetron/PF 4mg/2ml inj IV PRN (18:50)
[2023-10-19] MEDS ORDERED: magnesium 4gm in 100ml NS 100 ML IV PRN (18:50)
[2023-10-19] MEDS ORDERED: potassium Cl 40MEQ/1/2NS 520ml 520 ML IV PRN (18:50)
[2023-10-19 19:16] LABS: C-REACTIVE PROTEIN 3.67 MG/DL (0.0-0.5)
[2023-10-19] MEDS ORDERED: sodium bicarbonate (8.4%) inj. 100 MEQ in dextrose 5%-water 1,000 ML IV SCH (19:25)
[2023-10-19 19:36] LABS: CLARITY,URINE TURBID (Clear); COLOR,URINE STRAW (Yellow); GLUCOSE, URINE NEGATIVE (Neg); KETONES,URINE NEGATIVE (Neg); NITRITES, URINE NEGATIVE (Neg); PH,URINE 6.5 (4.8-8.0); PROTEIN,URINE 30 mg/dl (Neg); UA COLLECTION TYPE FOLEY CATH
[2023-10-19 19:37] LABS: BILIRUBIN,URINE NEGATIVE (Neg); LEUKOCYTE ESTERASE ,URINE LARGE (Neg); OCCULT BLOOD,URINE SMALL (Neg); UROBILINOGEN,URINE 0.2 E.U/dL (0.2-1.0)
[2023-10-19 19:39] LABS: SQUAMOUS EPITHELIAL CELL,UR NONE SEEN /LPF (FEW); WBC,URINE TNTC /HPF (0-4)
[2023-10-19 19:41] LABS: BACTERIA,URINE 2+ /HPF (Neg); MUCUS STRANDS FEW /LPF (Neg); TRANSITIONAL EPI CELLS,URINE MANY /HPF
[2023-10-19] MEDS ORDERED: HYDROcodone/acetaminophen 5mg/325mg tablet PO PRN (19:45)
[2023-10-19] MEDS: sodium bicarbonate 1meq/ml inj 150 ML in dextrose 5%-water 1,000 ML IV SCH (20:07)
--- NOTE | 2023-10-19 20:23 | NUR ---
Received report from metal dealerLORENA Barrios. Patient to follow shortly.
--- NOTE | 2023-10-19 20:30 | NUR ---
Patient arrived to floor via gurney from the Er. A&O and in no apparent distress.
[2023-10-19 20:35] VITALS: BP 104/51; PULSE 83; TEMP 100.8; O2SAT 96
[2023-10-19 21:00] VITALS: RESP 16
[2023-10-19 22:00] VITALS: BP 122/68; PULSE 79; TEMP 97.2; O2SAT 95
--- NOTE | 2023-10-19 22:31 | NUR ---
PAGER ID: [phone] MESSAGE: Please call regarding R Bessie room 3027B and transfusion? hector delgadillo [phone] (75 character message out of a maximum of [phone]) CLOSE [X] SEND ANOTHER PAGE Thank you for visiting [facility] promotional table spacer promotional table spacer
--- NOTE | 2023-10-19 23:25 | NUR ---
promotional table spacer promotional table spacer Page Sent promotional table spacer PAGER ID: [phone] MESSAGE: PT. Remberto Allen [id number] normally takes gabapentin 300mg HS. Also, are we doing the blood transfusion? Marta [phone] (107 character message out of a maximum of [phone])
--- NOTE | 2023-10-19 23:32 | NUR ---
Called regarding possible blood tranfusion. New orders to get a stat CBC. Transfuse only for a H&h of <7. Addendum: 10/19/23 at 2334 by Marta Rob RN Also , one time order received for patient to get his gabapentin 300mg hS.
[2023-10-19] MEDS ORDERED: gabapentin 300mg capsule PO ONE (23:40)
[2023-10-20] VITALS (14 sets, daily range): BP systolic 94–132; BP diastolic 45–102; PULSE 65–89; RESP 14–22; TEMP 97–98.8; O2SAT 93–100
[2023-10-20] MEDS: heparin, porcine 5000 units/ml vial SQ SCH ×3 (00:11→20:09)
[2023-10-20 01:01] LABS: BASOPHILS % (AUTO) 0.5 % (0-1); EOSINOPHILS # (AUTO) 0.3 X10'3 (0-0.9); EOSINOPHILS % (AUTO) 4.2 % (0-6); LYMPHOCYTES % (AUTO) 15.6 % (21-51); MEAN CORPUSCULAR HEMOGLOBIN 25.1 PG (27.0-31.0); MEAN CORPUSCULAR HGB CONC 31.6 g/dL (33.0-36.5); MEAN CORPUSCULAR VOLUME 79.5 FL (78-98); MEAN PLATELET VOLUME 6.2 FL (7.4-10.4); MONOCYTES # (AUTO) 0.7 X10'3 (0-0.9); MONOCYTES % (AUTO) 11.3 % (2-12); NEUTROPHILS # (AUTO) 4.4 X10'3 (1.8-7.7); NEUTROPHILS % (AUTO) 68.4 % (42-75); PLATELET COUNT 173 X10'3 (140-440); RED BLOOD COUNT 2.67 X10'6 (4.70-6.10); RED CELL DISTRIBUTION WIDTH 17.1 % (11.5-14.5); WHITE BLOOD COUNT 6.4 X10'3 (4.5-11.0)
[2023-10-20 01:05] LABS: HEMATOCRIT 21.2 % (42.0-52.0); HEMOGLOBIN 6.7 g/dl (14.0-17.9)
[2023-10-20 01:08] LABS: ALANINE AMINOTRANSFERASE 7 U/L (12-78); ALBUMIN 1.9 G/DL (3.4-5.0); ALBUMIN/GLOBULIN RATIO 0.5 (1.1-1.5); ALKALINE PHOSPHATASE 90 IU/L (46-116); ANION GAP 13 (8-16); ASPARTATE AMINO TRANSFERASE 8 U/L (10-37); BILIRUBIN,TOTAL 0.3 MG/DL (0.1-1.0); BLOOD UREA NITROGEN 102 MG/DL (7-18); BUN/CREATININE RATIO 10.7 (10.0-20.0); CALCIUM 8.5 MG/DL (8.5-10.1); CHLORIDE 102 MMOL/L (99-107); CREATININE 9.51 MG/DL (0.60-1.10); GLUCOSE 134 MG/DL (70-104); POTASSIUM 4.6 MMOL/L (3.5-5.1); SODIUM 133 MMOL/L (135-145); TOTAL CARBON DIOXIDE 18.1 MMOL/L (24-32); TOTAL PROTEIN 5.7 G/DL (6.4-8.2); eCRCL 7 ML/MIN; eGFR 5 ML/MIN
--- NOTE | 2023-10-20 02:06 | NUR ---
Informed by charge per NUrsing Belcher Addendum: 10/20/23 at 0211 by Marta Rob RN Per nursing yard labor supervisorkyler to transfer blood from original ER order so as unit of blood not wasted.
[2023-10-20] MEDS: sodium bicarbonate 1meq/ml inj 150 ML in dextrose 5%-water 1,000 ML IV SCH ×3 (02:11→17:52)
[2023-10-20] MEDS: normal saline 1000ml 1,000 ML IV SCH ×2 (04:50→14:50)
--- NOTE | 2023-10-20 06:54 | NUR ---
Problems reprioritized. Patient report given, questions answered & plan of care reviewed with Marta. Addendum: 10/20/23 at 0654 by Nader Singh RN Amended: Links added.
--- NOTE | 2023-10-20 06:55 | NUR ---
Problems reprioritized. Patient report given, questions answered & plan of care reviewed with Nader RN.
[2023-10-20 08:33] LABS: HEMATOCRIT 24.1 % (42.0-52.0); HEMOGLOBIN 7.6 g/dl (14.0-17.9); MEAN CORPUSCULAR HEMOGLOBIN 25.2 PG (27.0-31.0); MEAN CORPUSCULAR HGB CONC 31.5 g/dL (33.0-36.5); MEAN CORPUSCULAR VOLUME 80.1 FL (78-98); MEAN PLATELET VOLUME 6.3 FL (7.4-10.4); PLATELET COUNT 179 X10'3 (140-440); WHITE BLOOD COUNT 6.8 X10'3 (4.5-11.0)
[2023-10-20 13:33] LABS: FERRITIN 29 NG/ML (26-388); PRO BRAIN NATRIURETIC PEPTIDE 1171 PG/ML (0-125)
[2023-10-20] MEDS: acetaminophen 325mg tablet PO PRN (14:56)
--- NOTE | 2023-10-20 18:29 | NUR ---
Problems reprioritized. Patient report given, questions answered & plan of care reviewed with Sushma Pittman Addendum: 10/20/23 at 1830 by Nader Singh RN Amended: Links added.
--- NOTE | 2023-10-20 18:35 | NUR ---
Patient in room PCU 3027. I have received report from LORENA BILLINGSLEY and had the opportunity to ask questions and assume patient care.
[2023-10-20] MEDS ORDERED: FORMOTEROL FUM IH SCH (20:00)
[2023-10-20] MEDS ORDERED: GLYCOPYRROLATE IH SCH (20:00)
[2023-10-20] MEDS ORDERED: UMEC1DIS INH (20:06)
[2023-10-20] MEDS ORDERED: FLUT16SP11 BOTHNARES (20:06)
[2023-10-21] VITALS (11 sets, daily range): BP systolic 112–137; BP diastolic 66–86; PULSE 73–97; RESP 13–18; TEMP 97.8–99.1; O2SAT 93–97
[2023-10-21] MEDS: normal saline 1000ml 1,000 ML IV SCH ×3 (00:50→20:50)
[2023-10-21] MEDS: sodium bicarbonate 1meq/ml inj 150 ML in dextrose 5%-water 1,000 ML IV SCH ×3 (02:02→16:17)
[2023-10-21 06:15] LABS: BASOPHILS % (AUTO) 0.5 % (0-1); EOSINOPHILS # (AUTO) 0.2 X10'3 (0-0.9); EOSINOPHILS % (AUTO) 3.3 % (0-6); HEMATOCRIT 23.6 % (42.0-52.0); HEMOGLOBIN 7.6 g/dl (14.0-17.9); LYMPHOCYTES # (AUTO) 1.2 X10'3 (1.1-4.8); LYMPHOCYTES % (AUTO) 19.4 % (21-51); MEAN CORPUSCULAR HEMOGLOBIN 25.1 PG (27.0-31.0); MEAN CORPUSCULAR HGB CONC 32.3 g/dL (33.0-36.5); MEAN CORPUSCULAR VOLUME 77.7 FL (78-98); MEAN PLATELET VOLUME 6.6 FL (7.4-10.4); MONOCYTES # (AUTO) 0.8 X10'3 (0-0.9); MONOCYTES % (AUTO) 12.7 % (2-12); NEUTROPHILS % (AUTO) 64.1 % (42-75); PLATELET COUNT 198 X10'3 (140-440); RED BLOOD COUNT 3.03 X10'6 (4.70-6.10); WHITE BLOOD COUNT 6.3 X10'3 (4.5-11.0)
--- NOTE | 2023-10-21 06:27 | NUR ---
Problems reprioritized. Patient report given, questions answered & plan of care reviewed with LORENA BILLINGSLEY.
--- NOTE | 2023-10-21 06:29 | NUR ---
Patient in room U 3027. I have received report from Sushma Pittman and had the opportunity to ask questions and assume patient care. Addendum: 10/21/23 at 0629 by Nader Singh RN Amended: Links added.
[2023-10-21 06:39] LABS: ALANINE AMINOTRANSFERASE 10 U/L (12-78); ALBUMIN 1.9 G/DL (3.4-5.0); ALBUMIN/GLOBULIN RATIO 0.5 (1.1-1.5); ALKALINE PHOSPHATASE 91 IU/L (46-116); ANION GAP 12 (8-16); ASPARTATE AMINO TRANSFERASE 13 U/L (10-37); BILIRUBIN,TOTAL 0.3 MG/DL (0.1-1.0); BLOOD UREA NITROGEN 96 MG/DL (7-18); BUN/CREATININE RATIO 11.4 (10.0-20.0); CALCIUM 8.5 MG/DL (8.5-10.1); CHLORIDE 101 MMOL/L (99-107); CREATININE 8.45 MG/DL (0.60-1.10); GLUCOSE 116 MG/DL (70-104); POTASSIUM 3.6 MMOL/L (3.5-5.1); SODIUM 139 MMOL/L (135-145); TOTAL PROTEIN 5.8 G/DL (6.4-8.2); eCRCL 8 ML/MIN; eGFR 6 ML/MIN
[2023-10-21] MEDS ORDERED: FLUTICASONE SCH (08:00)
[2023-10-21] MEDS ORDERED: SALMETEROL SCH (08:00)
[2023-10-21] MEDS: heparin, porcine 5000 units/ml vial SQ SCH ×2 (08:47→20:23)
[2023-10-21] MEDS: fluticasone nasal spray 16GM bottle NS SCH (08:47)
--- NOTE | 2023-10-21 09:00 | NUR ---
hOME INHALER NOT AVAILABLE
[2023-10-21] MEDS ORDERED: albuterol 2.5 MG/3 ML nebule NEB PRN (09:45)
[2023-10-21] MEDS ORDERED: ipratropium/albuterol 3ml nebule NEB SCH (10:49)
[2023-10-21 11:54] LABS: UREA NITROGEN 24HR,URINE 10.7 GM/24HR (7-20)
[2023-10-21 15:17] LABS: OCCULT BLOOD STOOL POSITIVE (Neg)
--- NOTE | 2023-10-21 18:51 | NUR ---
Problems reprioritized. Patient report given, questions answered & plan of care reviewed with Casandra. Addendum: 10/21/23 at 1851 by Nader Singh RN Amended: Links added.
[2023-10-22] VITALS (9 sets, daily range): BP systolic 116–135; BP diastolic 63–83; PULSE 78–105; RESP 11–20; TEMP 97.6–98.9; O2SAT 92–97
[2023-10-22] MEDS: sodium bicarbonate 1meq/ml inj 150 ML in dextrose 5%-water 1,000 ML IV SCH ×2 (00:11→02:31)
--- NOTE | 2023-10-22 06:24 | NUR ---
Report given to Marli
[2023-10-22 06:38] LABS: BASOPHILS % (AUTO) 0.4 % (0-1); EOSINOPHILS # (AUTO) 0.2 X10'3 (0-0.9); EOSINOPHILS % (AUTO) 3.2 % (0-6); HEMATOCRIT 23.6 % (42.0-52.0); HEMOGLOBIN 7.7 g/dl (14.0-17.9); LYMPHOCYTES # (AUTO) 1.6 X10'3 (1.1-4.8); LYMPHOCYTES % (AUTO) 21.7 % (21-51); MEAN CORPUSCULAR HEMOGLOBIN 25.5 PG (27.0-31.0); MEAN CORPUSCULAR HGB CONC 32.6 g/dL (33.0-36.5); MEAN CORPUSCULAR VOLUME 78.3 FL (78-98); MEAN PLATELET VOLUME 6.4 FL (7.4-10.4); MONOCYTES % (AUTO) 13.8 % (2-12); NEUTROPHILS # (AUTO) 4.4 X10'3 (1.8-7.7); NEUTROPHILS % (AUTO) 60.9 % (42-75); PLATELET COUNT 192 X10'3 (140-440); RED BLOOD COUNT 3.01 X10'6 (4.70-6.10); RED CELL DISTRIBUTION WIDTH 16.8 % (11.5-14.5); WHITE BLOOD COUNT 7.2 X10'3 (4.5-11.0)
[2023-10-22] MEDS: normal saline 1000ml 1,000 ML IV SCH ×2 (06:50→17:43)
--- NOTE | 2023-10-22 06:59 | NUR ---
Patient in room PCU 3027. I have received report from Casandra CARRILLO and had the opportunity to ask questions and assume patient care.
[2023-10-22 07:03] LABS: ALBUMIN 1.8 G/DL (3.4-5.0); ALBUMIN/GLOBULIN RATIO 0.4 (1.1-1.5); ANION GAP 6 (8-16); ASPARTATE AMINO TRANSFERASE 7 U/L (10-37); BILIRUBIN,TOTAL 0.3 MG/DL (0.1-1.0); BLOOD UREA NITROGEN 82 MG/DL (7-18); BUN/CREATININE RATIO 11.3 (10.0-20.0); CALCIUM 8.4 MG/DL (8.5-10.1); CHLORIDE 99 MMOL/L (99-107); CREATININE 7.24 MG/DL (0.60-1.10); GLUCOSE 111 MG/DL (70-104); POTASSIUM 3.5 MMOL/L (3.5-5.1); SODIUM 141 MMOL/L (135-145); TOTAL CARBON DIOXIDE 36.3 MMOL/L (24-32); TOTAL PROTEIN 5.9 G/DL (6.4-8.2); eCRCL 9 ML/MIN; eGFR 8 ML/MIN
[2023-10-22 07:04] LABS: ALKALINE PHOSPHATASE 81 IU/L (46-116)
[2023-10-22 07:17] LABS: ALANINE AMINOTRANSFERASE < 6 U/L (12-78)
[2023-10-22] MEDS: fluticasone nasal spray 16GM bottle NS SCH (08:13)
[2023-10-22] MEDS: heparin, porcine 5000 units/ml vial SQ SCH ×2 (08:30→20:10)
[2023-10-22] MEDS: HYDROcodone/acetaminophen 10/325mg tab PO PRN ×2 (08:35→20:16)
[2023-10-22 12:45] LABS: TRANSFERRIN 186 mg/dL (177-329)
[2023-10-22] MEDS: acetaminophen 325mg tablet PO PRN (16:26)
[2023-10-22] MEDS: sodium ferric gluc complex inj 125 MG in normal saline 100ml IV soln 100 ML IV SCH (17:33)
[2023-10-23] VITALS (8 sets, daily range): BP systolic 104–124; BP diastolic 45–68; PULSE 85–104; RESP 13–20; TEMP 97.3–98.7; O2SAT 93–95
[2023-10-23] MEDS: acetaminophen 325mg tablet PO PRN (01:05)
[2023-10-23] MEDS: normal saline 1000ml 1,000 ML IV SCH ×3 (02:50→23:07)
--- NOTE | 2023-10-23 03:20 | NUR ---
PAGER ID: [phone] MESSAGE to : Remberto Mitchell in rm [id number] wants to change his code status. [facility] [phone].
--- NOTE | 2023-10-23 06:37 | NUR ---
Problems reprioritized. Patient report given, questions answered & plan of care reviewed with Luis
[2023-10-23] MEDS: heparin, porcine 5000 units/ml vial SQ SCH ×2 (08:15→21:19)
[2023-10-23] MEDS: fluticasone nasal spray 16GM bottle NS SCH (08:15)
[2023-10-23] MEDS: sodium ferric gluc complex inj 125 MG in normal saline 100ml IV soln 100 ML IV SCH (08:27)
[2023-10-23 11:56] LABS: BASOPHILS % (AUTO) 0.5 % (0-1); EOSINOPHILS # (AUTO) 0.4 X10'3 (0-0.9); HEMATOCRIT 24.4 % (42.0-52.0); HEMOGLOBIN 7.7 g/dl (14.0-17.9); LYMPHOCYTES # (AUTO) 1.3 X10'3 (1.1-4.8); LYMPHOCYTES % (AUTO) 18.2 % (21-51); MEAN CORPUSCULAR HGB CONC 31.5 g/dL (33.0-36.5); MEAN CORPUSCULAR VOLUME 79.2 FL (78-98); MEAN PLATELET VOLUME 6.3 FL (7.4-10.4); MONOCYTES # (AUTO) 1.1 X10'3 (0-0.9); NEUTROPHILS # (AUTO) 4.3 X10'3 (1.8-7.7); NEUTROPHILS % (AUTO) 61.3 % (42-75); PLATELET COUNT 189 X10'3 (140-440); RED BLOOD COUNT 3.08 X10'6 (4.70-6.10); RED CELL DISTRIBUTION WIDTH 16.9 % (11.5-14.5)
[2023-10-23 12:13] LABS: ALANINE AMINOTRANSFERASE 8 U/L (12-78); ALBUMIN 1.7 G/DL (3.4-5.0); ALBUMIN/GLOBULIN RATIO 0.4 (1.1-1.5); ALKALINE PHOSPHATASE 79 IU/L (46-116); ANION GAP 6 (8-16); ASPARTATE AMINO TRANSFERASE 11 U/L (10-37); BILIRUBIN,TOTAL 0.3 MG/DL (0.1-1.0); BLOOD UREA NITROGEN 73 MG/DL (7-18); BUN/CREATININE RATIO 11.7 (10.0-20.0); CHLORIDE 99 MMOL/L (99-107); CREATININE 6.25 MG/DL (0.60-1.10); GLUCOSE 91 MG/DL (70-104); MAGNESIUM 1.6 MG/DL (1.5-2.4); POTASSIUM 3.3 MMOL/L (3.5-5.1); SODIUM 141 MMOL/L (135-145); TOTAL CARBON DIOXIDE 35.9 MMOL/L (24-32); TOTAL PROTEIN 5.8 G/DL (6.4-8.2); eCRCL 11 ML/MIN; eGFR 9 ML/MIN
[2023-10-23 13:37] LABS: OCCULT BLOOD STOOL POSITIVE (Neg)
[2023-10-23] MEDS: HYDROcodone/acetaminophen 10/325mg tab PO PRN ×2 (13:54→21:20)
[2023-10-23 13:56] LABS: C DIFF ANTIGEN NEGATIVE (NEGATIVE); C DIFF SPECIMEN=DIARRHEA? ACCEPTABLE; C DIFFICILE TOXINS A&B NEGATIVE (Neg)
--- NOTE | 2023-10-23 17:01 | NUR ---
Initial: Pt DX BRENDA with End-stage renal disease per EMR. Per EMR plan is start pt to start HD; adjusting estimated needs. Pt continues on a renal diet with average PO intake of 67% x 11 meals which met ~67% of estimated kcal needs and ~61% of estimated protein needs though appetite appears to be improving. If appetite does not improve pt may benefit from ONS. Noted 2 BM on 10/22 per EMR. Will continue to monitor and make recommendations as appropriate. 1.continue renal diet 2.monitor PO intake and need for ONS 3.routine bowel care 4.weekly scaled wts Addendum: 10/23/23 at [address] Amended: Links added. Addendum: 10/23/23 at [address] Initial: Pt DX BRENDA with End-stage renal disease per EMR. Per EMR plan is start pt to start HD; adjusting estimated needs. Pt continues on a renal diet with average PO intake of 67% x 11 meals which met ~67% of estimated kcal needs and ~61% of estimated protein needs though appetite appears to be improving. If appetite does not improve pt may benefit from ONS. Noted 2 BM on 10/22 per EMR. Will continue to monitor and make recommendations as appropriate. Recommendations: 1.continue renal diet 2.monitor PO intake and need for ONS 3.routine bowel care 4.weekly scaled wts
[2023-10-24] VITALS (11 sets, daily range): BP systolic 106–126; BP diastolic 62–76; PULSE 83–101; RESP 15–20; TEMP 98.1–99.1; O2SAT 91–96
--- NOTE | 2023-10-24 06:33 | NUR ---
Problems reprioritized. Patient report given, questions answered & plan of care reviewed with
[2023-10-24 07:08] LABS: BASOPHILS % (AUTO) 0.5 % (0-1); EOSINOPHILS # (AUTO) 0.5 X10'3 (0-0.9); EOSINOPHILS % (AUTO) 6.7 % (0-6); HEMATOCRIT 24.1 % (42.0-52.0); HEMOGLOBIN 7.5 g/dl (14.0-17.9); LYMPHOCYTES # (AUTO) 1.8 X10'3 (1.1-4.8); LYMPHOCYTES % (AUTO) 26.6 % (21-51); MEAN CORPUSCULAR HEMOGLOBIN 25.1 PG (27.0-31.0); MEAN CORPUSCULAR HGB CONC 31.3 g/dL (33.0-36.5); MEAN CORPUSCULAR VOLUME 80.2 FL (78-98); MEAN PLATELET VOLUME 6.4 FL (7.4-10.4); MONOCYTES # (AUTO) 0.9 X10'3 (0-0.9); MONOCYTES % (AUTO) 13.4 % (2-12); NEUTROPHILS # (AUTO) 3.6 X10'3 (1.8-7.7); NEUTROPHILS % (AUTO) 52.8 % (42-75); PLATELET COUNT 189 X10'3 (140-440); WHITE BLOOD COUNT 6.8 X10'3 (4.5-11.0)
[2023-10-24 07:25] LABS: ANION GAP 5 (8-16); BLOOD UREA NITROGEN 67 MG/DL (7-18); BUN/CREATININE RATIO 11.1 (10.0-20.0); CALCIUM 8.4 MG/DL (8.5-10.1); CHLORIDE 103 MMOL/L (99-107); CREATININE 6.01 MG/DL (0.60-1.10); GLUCOSE 82 MG/DL (70-104); PHOSPHORUS 5.8 MG/DL (2.3-4.5); POTASSIUM 3.4 MMOL/L (3.5-5.1); SODIUM 142 MMOL/L (135-145); TOTAL CARBON DIOXIDE 34.5 MMOL/L (24-32); eCRCL 11 ML/MIN; eGFR 9 ML/MIN
[2023-10-24 07:26] LABS: ALANINE AMINOTRANSFERASE 9 U/L (12-78); ALBUMIN 1.8 G/DL (3.4-5.0); ALBUMIN/GLOBULIN RATIO 0.5 (1.1-1.5); ALKALINE PHOSPHATASE 75 IU/L (46-116); ASPARTATE AMINO TRANSFERASE 11 U/L (10-37); BILIRUBIN,TOTAL 0.3 MG/DL (0.1-1.0); MAGNESIUM 1.6 MG/DL (1.5-2.4); TOTAL PROTEIN 5.8 G/DL (6.4-8.2)
[2023-10-24] MEDS: heparin, porcine 5000 units/ml vial SQ SCH ×2 (09:26→19:11)
[2023-10-24] MEDS: HYDROcodone/acetaminophen 10/325mg tab PO PRN ×2 (09:27→19:10)
[2023-10-24] MEDS: fluticasone nasal spray 16GM bottle NS SCH (09:27)
[2023-10-24] MEDS: normal saline 1000ml 1,000 ML IV SCH (09:32)
[2023-10-24] MEDS: sodium ferric gluc complex inj 125 MG in normal saline 100ml IV soln 100 ML IV SCH (10:05)
--- NOTE | 2023-10-24 13:30 | NUR ---
SRN changed f/c . Used 16 coude. Tolerated well.
[2023-10-24] MEDS ORDERED: EPOETIN ALFA-EPBX 20,000 UNIT/ML 1 ML MDV SQ ONE (13:35)
[2023-10-24] MEDS: acetaminophen 325mg tablet PO PRN (15:47)
[2023-10-24] MEDS ORDERED: LidoCAINE 2% Topical Jelly 11mL syringe TOP ONE (16:30)
--- NOTE | 2023-10-24 18:13 | NUR ---
Gave report to Daylin CARRILLO and René CARRILLO
--- NOTE | 2023-10-24 22:24 | NUR ---
called for pt requesting flonase spray this pm. gave order for 1 time dose of flonase spray tonight and then to resume with daily am flonase. Order read back and placed per
[2023-10-24] MEDS ORDERED: fluticasone nasal spray 16GM bottle NS SCH (22:25)
[2023-10-25 02:00] VITALS: BP 113/59; PULSE 77; RESP 18; TEMP 100; O2SAT 97
[2023-10-25] MEDS: normal saline 1000ml 1,000 ML IV SCH ×2 (04:25→04:50)
[2023-10-25] MEDS: HYDROcodone/acetaminophen 10/325mg tab PO PRN (05:38)
[2023-10-25 06:00] VITALS: BP 118/68; PULSE 64; RESP 20; TEMP 98.7; O2SAT 97
--- NOTE | 2023-10-25 06:30 | NUR ---
Report given to HERIBERTO Faulkner. Patient stable at transfer of care.
--- NOTE | 2023-10-25 06:58 | NUR ---
Patient in room PCU 3027. I have received report from Daylin and had the opportunity to ask questions and assume patient care.
[2023-10-25 08:00] VITALS: RESP 20; O2SAT 97
[2023-10-25 08:11] LABS: MAGNESIUM 1.5 MG/DL (1.5-2.4); PHOSPHORUS 4.6 MG/DL (2.3-4.5)
[2023-10-25 08:17] LABS: BASOPHILS # (AUTO) 0.1 X10'3 (0-0.2); BASOPHILS % (AUTO) 0.9 % (0-1); EOSINOPHILS # (AUTO) 0.5 X10'3 (0-0.9); EOSINOPHILS % (AUTO) 7.6 % (0-6); HEMATOCRIT 24.1 % (42.0-52.0); HEMOGLOBIN 7.4 g/dl (14.0-17.9); LYMPHOCYTES # (AUTO) 1.6 X10'3 (1.1-4.8); LYMPHOCYTES % (AUTO) 25.7 % (21-51); MEAN CORPUSCULAR HEMOGLOBIN 24.7 PG (27.0-31.0); MEAN CORPUSCULAR HGB CONC 30.5 g/dL (33.0-36.5); MEAN CORPUSCULAR VOLUME 81.1 FL (78-98); MEAN PLATELET VOLUME 6.4 FL (7.4-10.4); MONOCYTES # (AUTO) 0.7 X10'3 (0-0.9); MONOCYTES % (AUTO) 11.9 % (2-12); NEUTROPHILS # (AUTO) 3.3 X10'3 (1.8-7.7); NEUTROPHILS % (AUTO) 53.9 % (42-75); PLATELET COUNT 193 X10'3 (140-440); RED BLOOD COUNT 2.97 X10'6 (4.70-6.10); RED CELL DISTRIBUTION WIDTH 17.2 % (11.5-14.5); WHITE BLOOD COUNT 6.1 X10'3 (4.5-11.0)
[2023-10-25 08:33] LABS: ANION GAP 9 (8-16); BLOOD UREA NITROGEN 60 MG/DL (7-18); BUN/CREATININE RATIO 10.7 (10.0-20.0); CHLORIDE 102 MMOL/L (99-107); GLUCOSE 91 MG/DL (70-104); POTASSIUM 3.4 MMOL/L (3.5-5.1); SODIUM 142 MMOL/L (135-145); TOTAL CARBON DIOXIDE 31.4 MMOL/L (24-32)
[2023-10-25 08:34] LABS: ALANINE AMINOTRANSFERASE 10 U/L (12-78); ALBUMIN 1.9 G/DL (3.4-5.0); ALBUMIN/GLOBULIN RATIO 0.5 (1.1-1.5); ALKALINE PHOSPHATASE 75 IU/L (46-116); ASPARTATE AMINO TRANSFERASE 30 U/L (10-37); BILIRUBIN,TOTAL 0.2 MG/DL (0.1-1.0); CALCIUM 8.5 MG/DL (8.5-10.1); TOTAL PROTEIN 5.7 G/DL (6.4-8.2); eCRCL 12 ML/MIN; eGFR 10 ML/MIN
[2023-10-25] MEDS: heparin, porcine 5000 units/ml vial SQ SCH (08:42)
[2023-10-25] MEDS: fluticasone nasal spray 16GM bottle NS SCH (08:43)
[2023-10-25] MEDS: sodium ferric gluc complex inj 125 MG in normal saline 100ml IV soln 100 ML IV SCH (08:54)
[2023-10-25 09:10] VITALS: PULSE 89; RESP 16; O2SAT 95
[2023-10-25] MEDS: acetaminophen 325mg tablet PO PRN (10:31)
[2023-10-25 11:00] VITALS: BP 107/48; PULSE 80; RESP 18; TEMP 98; O2SAT 94
--- NOTE | 2023-10-25 11:27 | NUR ---
Reassessment: Per EMR pt hasn't begun dialysis just yet, estimated nutrient needs have been adjusted accordingly. PO intake has significantly improved, documented with average 88% PO intake of meals since 10/23 with 100% PO intake of all meals 10/24. Average intake since 10/23 meets 88% estimated energy needs and 100% estimated protein needs. LBM 10/24 per EMR. No nutrition intervention implemented at this time. Will continue to follow and make recommendations as appropriate. Recommendations: 1. Continue renal diet 2. Monitor for initiation of dialysis and need for ONS/additional protein 3. Consider Phos binder per physician discretion 4. Bowel care PRN 5. Weekly scaled weights Addendum: 10/25/23 at [address] Amended: Links added.
--- NOTE | 2023-10-25 12:34 | NUR ---
I agree with CHARGE AUTHORIZER assessment.
--- NOTE | 2023-10-25 12:45 | NUR ---
Sent to Dr Lal - [id number] Remberto has a K of 3.4 but no order for k-dur. Do you want me to give a replacement before he discharges? Lucie [facility] [phone]
[2023-10-25] MEDS ORDERED: potassium chloride 10mEq ER tablet PO ONE (12:50)
--- NOTE | 2023-10-25 12:50 | NUR ---
ORDERS FOR 40MEQ OF POTASSIUM PUT IN PER DR. LIMON.
== END 2023-10-25 16:50 | disposition home health service (06) | DRG 70 ==
LOC: ER 10:35 → ED HOLD 18:52 → PCU 3S 20:35
PROVIDERS: ADMIT Internal Medicine; ATTEND Internal Medicine
PROC: 30233N1 Transfusion of Nonautologous Red Blood Cells into Peripheral Vein, Percutaneous Approach (ICD-10-PCS; principal; 2023-10-20)
DX: G93.41 Metabolic encephalopathy (principal); N17.0 Acute kidney failure with tubular necrosis; N18.6 End stage renal disease; E87.4 Mixed disorder of acid-base balance; I13.2 Hypertensive heart and chronic kidney disease with heart failure and with stage 5 chronic kidney disease, or end stage renal disease; J96.10 Chronic respiratory failure, unspecified whether with hypoxia or hypercapnia; Z16.29 Resistance to other single specified antibiotic; D64.9 Anemia, unspecified; E11.22 Type 2 diabetes mellitus with diabetic chronic kidney disease; E11.610 Type 2 diabetes mellitus with diabetic neuropathic arthropathy; E66.01 Morbid (severe) obesity due to excess calories; E86.0 Dehydration; G47.33 Obstructive sleep apnea (adult) (pediatric); I50.9 Heart failure, unspecified; J44.9 Chronic obstructive pulmonary disease, unspecified; F41.9 Anxiety disorder, unspecified; G89.29 Other chronic pain; K21.9 Gastro-esophageal reflux disease without esophagitis; E87.6 Hypokalemia; N40.0 Benign prostatic hyperplasia without lower urinary tract symptoms; D63.8 Anemia in other chronic diseases classified elsewhere; M54.9 Dorsalgia, unspecified; W18.39XA Other fall on same level, initial encounter; Z79.899 Other long term (current) drug therapy; Z80.3 Family history of malignant neoplasm of breast; Z82.3 Family history of stroke; Z83.3 Family history of diabetes mellitus; Z86.73 Personal history of transient ischemic attack (TIA), and cerebral infarction without residual deficits; Z87.440 Personal history of urinary (tract) infections; Z87.442 Personal history of urinary calculi; Z90.49 Acquired absence of other specified parts of digestive tract; Z99.3 Dependence on wheelchair; Z91.030 Bee allergy status; Z91.041 Radiographic dye allergy status; Y93.89 Activity, other specified; Y92.89 Other specified places as the place of occurrence of the external cause; Y99.8 Other external cause status
CPT/HCPCS: 36415; 36430; 36600; 71045; 72074; 72100; 72190; 74176; 76770; 80053; 81001; 82272; 82570; 82607; 82728; 82803; 83540; 83550; 83605; 83735; 83880; 83935; 84100; 84133; 84145; 84156; 84300; 84466; 84484; 84540; 84560; 85018; 85025; 85027; 85610; 85730; 86140; 86885; 86900; 86901; 86920; 87040; 87077; 87081; 87088; 87324; 87449; 94640; 94760; 97161; 97530; 99285; A4620; A5200; A6258; J1644; J2916; J3490; J7030; J7070; J7120; P9016; Q4081

== ENCOUNTER 2023-11-12 14:57 | Outpatient (CLI) | payer BC, MEDICARE ==
[~2023-11-12 14:57] MED LIST changes: -ADV50250; -DIAZ5TAB22 PO; +FLUT16SP11 BOTHNARES; -GLYC10.7 IH; -LOSA-415 PO; +UMEC1DIS INH; -gabapentin 300mg capsule PO ONE
[2023-11-12 15:52] LABS: BASOPHILS # (AUTO) 0.1 X10'3 (0-0.2); BASOPHILS % (AUTO) 0.6 % (0-1); EOSINOPHILS # (AUTO) 0.5 X10'3 (0-0.9); EOSINOPHILS % (AUTO) 4.5 % (0-6); HEMATOCRIT 31.4 % (42.0-52.0); HEMOGLOBIN 9.8 g/dl (14.0-17.9); LYMPHOCYTES # (AUTO) 1.5 X10'3 (1.1-4.8); LYMPHOCYTES % (AUTO) 14.5 % (21-51); MEAN CORPUSCULAR HEMOGLOBIN 25.3 PG (27.0-31.0); MEAN CORPUSCULAR HGB CONC 31.3 g/dL (33.0-36.5); MEAN CORPUSCULAR VOLUME 80.8 FL (78-98); MEAN PLATELET VOLUME 6.2 FL (7.4-10.4); MONOCYTES # (AUTO) 0.9 X10'3 (0-0.9); MONOCYTES % (AUTO) 9.1 % (2-12); NEUTROPHILS # (AUTO) 7.2 X10'3 (1.8-7.7); NEUTROPHILS % (AUTO) 71.3 % (42-75); PLATELET COUNT 315 X10'3 (140-440); RED BLOOD COUNT 3.89 X10'6 (4.70-6.10); RED CELL DISTRIBUTION WIDTH 19.8 % (11.5-14.5); WHITE BLOOD COUNT 10.2 X10'3 (4.5-11.0)
[2023-11-12 16:09] LABS: ALANINE AMINOTRANSFERASE 10 U/L (12-78); ALBUMIN 2.4 G/DL (3.4-5.0); ALBUMIN/GLOBULIN RATIO 0.5 (1.1-1.5); ALKALINE PHOSPHATASE 121 IU/L (46-116); ANION GAP 14 (8-16); APTT 32 SECONDS (22-32); ASPARTATE AMINO TRANSFERASE 7 U/L (10-37); BILIRUBIN,TOTAL 0.4 MG/DL (0.1-1.0); BLOOD UREA NITROGEN 100 MG/DL (7-18); BUN/CREATININE RATIO 10.3 (10.0-20.0); CALCIUM 9.1 MG/DL (8.5-10.1); CHLORIDE 100 MMOL/L (99-107); GLUCOSE 110 MG/DL (70-104); MAGNESIUM 2.4 MG/DL (1.5-2.4); PHOSPHORUS 7.4 MG/DL (2.3-4.5); POTASSIUM 4.7 MMOL/L (3.5-5.1); PROTHROMBIN TIME 10.5 SECONDS (9.0-12.0); SODIUM 132 MMOL/L (135-145); TOTAL CARBON DIOXIDE 17.9 MMOL/L (24-32); TOTAL PROTEIN 7.7 G/DL (6.4-8.2); eGFR 5 ML/MIN
[2023-11-12 16:19] LABS: % IRON SATURATION 11 % (11-46); IRON 23 UG/DL (53-167); TOTAL IRON BINDING CAPACITY 203 UG/DL (259-388)
[2023-11-12 16:38] LABS: ANISOCYTOSIS 2+; PLATELET ESTIMATE NORMAL
[2023-11-12 16:39] LABS: BURR CELLS FEW; ELLIPTOCYTES EFW; POLYCHROMASIA FEW; ROULEAUX 1+; TEAR DROP CELLS FEW
== END 2023-11-12 23:59 | disposition home or self-care (01) ==
LOC: LAB 14:57
DX: N18.5 Chronic kidney disease, stage 5 (principal); D50.9 Iron deficiency anemia, unspecified
CPT/HCPCS: 36415; 80053; 83540; 83550; 83735; 83970; 84100; 85008; 85025; 85610; 85730

== ENCOUNTER 2023-11-15 19:31 | Inpatient (IN) | payer BC, MEDICARE ==
[~2023-11-15] VITALS: Ht 172.7 cm; Wt 105.1 kg
[2023-11-15 20:25] LABS: BASOPHILS # (AUTO) 0.1 X10'3 (0-0.2); BASOPHILS % (AUTO) 0.7 % (0-1); EOSINOPHILS # (AUTO) 0.4 X10'3 (0-0.9); HEMATOCRIT 31.2 % (42.0-52.0); HEMOGLOBIN 9.6 g/dl (14.0-17.9); LYMPHOCYTES # (AUTO) 1.4 X10'3 (1.1-4.8); LYMPHOCYTES % (AUTO) 11.3 % (21-51); MEAN CORPUSCULAR HEMOGLOBIN 24.9 PG (27.0-31.0); MEAN CORPUSCULAR HGB CONC 30.8 g/dL (33.0-36.5); MEAN CORPUSCULAR VOLUME 80.9 FL (78-98); MEAN PLATELET VOLUME 6.2 FL (7.4-10.4); MONOCYTES # (AUTO) 1.1 X10'3 (0-0.9); MONOCYTES % (AUTO) 9.5 % (2-12); NEUTROPHILS % (AUTO) 75.5 % (42-75); PLATELET COUNT 299 X10'3 (140-440); RED BLOOD COUNT 3.86 X10'6 (4.70-6.10); RED CELL DISTRIBUTION WIDTH 19.8 % (11.5-14.5)
[2023-11-15 20:34] LABS: ALANINE AMINOTRANSFERASE 12 U/L (12-78); ALBUMIN 2.3 G/DL (3.4-5.0); ALBUMIN/GLOBULIN RATIO 0.5 (1.1-1.5); ALKALINE PHOSPHATASE 124 IU/L (46-116); ANION GAP 16 (8-16); ASPARTATE AMINO TRANSFERASE 2 U/L (10-37); BILIRUBIN,TOTAL 0.4 MG/DL (0.1-1.0); BLOOD UREA NITROGEN 123 MG/DL (7-18); BUN/CREATININE RATIO 9.8 (10.0-20.0); CALCIUM 8.9 MG/DL (8.5-10.1); CHLORIDE 97 MMOL/L (99-107); CREATININE 12.56 MG/DL (0.60-1.10); GLUCOSE 107 MG/DL (70-104); POTASSIUM 5.6 MMOL/L (3.5-5.1); SODIUM 129 MMOL/L (135-145); TOTAL CARBON DIOXIDE 15.6 MMOL/L (24-32); TOTAL PROTEIN 7.4 G/DL (6.4-8.2); eCRCL 5 ML/MIN; eGFR 4 ML/MIN
[2023-11-15 20:41] LABS: ANISOCYTOSIS 2+; PLATELET ESTIMATE NORMAL
[2023-11-15 20:42] LABS: BURR CELLS FEW; ELLIPTOCYTES FEW; POLYCHROMASIA FEW; TEAR DROP CELLS FEW
[2023-11-15] MEDS: normal saline 1000ml 1,000 ML IV ONE ×2 (21:16→21:21)
[2023-11-15 21:21] LABS: CLARITY,URINE TURBID (Clear); COLOR,URINE YELLOW (Yellow); PROTEIN,URINE 300 mg/dl (Neg); UA COLLECTION TYPE FOLEY CATH
[2023-11-15 21:22] LABS: BILIRUBIN,URINE NEGATIVE (Neg); GLUCOSE, URINE NEGATIVE (Neg); KETONES,URINE NEGATIVE (Neg); NITRITES, URINE NEGATIVE (Neg); OCCULT BLOOD,URINE LARGE (Neg)
[2023-11-15 21:24] LABS: LEUKOCYTE ESTERASE ,URINE LARGE (Neg); UROBILINOGEN,URINE 0.2 E.U/dL (0.2-1.0)
[2023-11-15] MEDS ORDERED: CefTRIAXone 2gm/D5W 50ml BAG 50 ML IV ONE (21:25)
[2023-11-15 21:26] LABS: RBC,URINE TNTC /HPF (0-2); WBC,URINE TNTC /HPF (0-4)
[2023-11-15 21:28] LABS: MUCUS STRANDS NONE SEEN /LPF (Neg); SQUAMOUS EPITHELIAL CELL,UR FEW /LPF (FEW); TRANSITIONAL EPI CELLS,URINE MODERATE /HPF
[2023-11-15 21:30] LABS: BACTERIA,URINE 4+ /HPF (Neg)
[2023-11-15 21:34] LABS: AMORPHOUS URATES 4+
[2023-11-15] MEDS ORDERED: VANCOmycin 1250MG/NS 250ml Bag 250 ML IV ONE (21:35)
[2023-11-15 21:47] LABS: MAGNESIUM 2.5 MG/DL (1.5-2.4)
[2023-11-15] MEDS ORDERED: normal saline 1000ml 1,000 ML IV ONE (22:20)
[2023-11-16] MEDS ORDERED: diphenhydrAMINE 25mg capsule PO PRN (00:05)
[2023-11-16] MEDS ORDERED: acetaminophen 325mg tablet PO PRN (00:05)
[2023-11-16] MEDS ORDERED: bisacodyl 10mg suppository rectal RC PRN (00:05)
[2023-11-16] MEDS ORDERED: ondansetron 4mg rapidly disintigrating tab PO PRN (00:05)
[2023-11-16] MEDS ORDERED: morphine 2 MG/ML inj. syringe IV PRN (00:05)
[2023-11-16] MEDS ORDERED: magnesium hydroxide 30ml (MOM) UD suspension PO PRN (00:05)
[2023-11-16] MEDS ORDERED: mag hydrox/Alum hydrox/simeth 30ml oral suspension PO PRN (00:05)
[2023-11-16] MEDS ORDERED: diphenhydrAMINE 50 mg/ml inj IV PRN (00:05)
[2023-11-16] MEDS: normal saline 1000ml 1,000 ML IV SCH (00:29)
[2023-11-16 01:54] LABS: APTT 31 SECONDS (22-32); D-DIMER 0.53 MG/L FEU (0-0.50); PROTHROMBIN TIME 10.5 SECONDS (9.0-12.0)
[2023-11-16 02:01] LABS: PHOSPHORUS 8.8 MG/DL (2.3-4.5); PRO BRAIN NATRIURETIC PEPTIDE 790 PG/ML (0-125)
[2023-11-16] MEDS ORDERED: pantoprazole 40mg Tablet.DR PO SCH (07:30)
[2023-11-16] MEDS: docusate sod 100mg capsule PO SCH ×2 (08:00→20:36)
[2023-11-16] MEDS ORDERED: furosemide 40mg/4ml inj IV SCH (08:00)
[2023-11-16] MEDS: heparin, porcine 5000 units/ml vial SQ SCH ×2 (09:14→20:37)
[2023-11-16] MEDS ORDERED: FLO0.4C PO (12:43)
[2023-11-16] MEDS ORDERED: DIAZ5TAB4 PO (12:45)
[2023-11-16] MEDS ORDERED: normal saline 1000ml 1,000 ML IV ONE (16:35)
[2023-11-16] MEDS ORDERED: LidoCAINE 2% Topical Jelly 11mL syringe TOP ONE (17:20)
[2023-11-16 18:00] VITALS: BP 95/46; PULSE 79; RESP 18; TEMP 96.7; O2SAT 99
[2023-11-16 20:00] VITALS: RESP 16; O2SAT 95
[2023-11-16] MEDS: sodium bicarbonate (8.4%) inj. 150 MEQ in dextrose 5%-water 1,000 ML IV SCH (21:51)
[2023-11-16] MEDS: CefTRIAXone/D5W-Rocephin 1gm 50 ML IV SCH (21:52)
[2023-11-16 22:00] VITALS: BP 95/46; PULSE 76; RESP 16; TEMP 97.4; O2SAT 98
[2023-11-17] VITALS (14 sets, daily range): BP systolic 90–115; BP diastolic 35–64; PULSE 72–104; RESP 15–24; TEMP 97.3–98.1; O2SAT 93–99
[2023-11-17] MEDS: sodium bicarbonate (8.4%) inj. 150 MEQ in dextrose 5%-water 1,000 ML IV SCH ×2 (05:20→09:00)
[2023-11-17 07:30] LABS: BASOPHILS % (AUTO) 0.3 % (0-1); EOSINOPHILS # (AUTO) 0.3 X10'3 (0-0.9); EOSINOPHILS % (AUTO) 3.4 % (0-6); HEMATOCRIT 26.8 % (42.0-52.0); HEMOGLOBIN 8.4 g/dl (14.0-17.9); LYMPHOCYTES # (AUTO) 1.1 X10'3 (1.1-4.8); LYMPHOCYTES % (AUTO) 13.9 % (21-51); MEAN CORPUSCULAR HEMOGLOBIN 24.9 PG (27.0-31.0); MEAN CORPUSCULAR HGB CONC 31.2 g/dL (33.0-36.5); MEAN CORPUSCULAR VOLUME 79.9 FL (78-98); MEAN PLATELET VOLUME 6.4 FL (7.4-10.4); MONOCYTES # (AUTO) 0.9 X10'3 (0-0.9); MONOCYTES % (AUTO) 11.6 % (2-12); NEUTROPHILS # (AUTO) 5.7 X10'3 (1.8-7.7); NEUTROPHILS % (AUTO) 70.8 % (42-75); PLATELET COUNT 203 X10'3 (140-440); RED BLOOD COUNT 3.36 X10'6 (4.70-6.10); RED CELL DISTRIBUTION WIDTH 19.8 % (11.5-14.5)
[2023-11-17 07:50] LABS: ALANINE AMINOTRANSFERASE 10 U/L (12-78); ALBUMIN 1.9 G/DL (3.4-5.0); ALBUMIN/GLOBULIN RATIO 0.4 (1.1-1.5); ALKALINE PHOSPHATASE 108 IU/L (46-116); ANION GAP 18 (8-16); ASPARTATE AMINO TRANSFERASE 9 U/L (10-37); BILIRUBIN,TOTAL 0.3 MG/DL (0.1-1.0); BLOOD UREA NITROGEN 120 MG/DL (7-18); BUN/CREATININE RATIO 9.8 (10.0-20.0); CALCIUM 8.7 MG/DL (8.5-10.1); CHLORIDE 99 MMOL/L (99-107); GLUCOSE 93 MG/DL (70-104); POTASSIUM 5.1 MMOL/L (3.5-5.1); SODIUM 132 MMOL/L (135-145); TOTAL CARBON DIOXIDE 15.5 MMOL/L (24-32); TOTAL PROTEIN 6.4 G/DL (6.4-8.2); eCRCL 5 ML/MIN; eGFR 4 ML/MIN
[2023-11-17 07:57] LABS: ANISOCYTOSIS 2+; BURR CELLS FEW; ELLIPTOCYTES FEW; MICROCYTOSIS 1+; PLATELET ESTIMATE NORMAL; SCHISTOCYTES FEW; TEAR DROP CELLS FEW
[2023-11-17 07:58] LABS: POLYCHROMASIA FEW
[2023-11-17 07:59] LABS: OSMOLALITY 323 MOSM/K (280-300)
[2023-11-17] MEDS: docusate sod 100mg capsule PO SCH ×2 (08:00→20:00)
[2023-11-17 08:45] LABS: BILIRUBIN,URINE NEGATIVE (Neg); CLARITY,URINE TURBID (Clear); COLOR,URINE YELLOW (Yellow); GLUCOSE, URINE NEGATIVE (Neg); KETONES,URINE NEGATIVE (Neg); LEUKOCYTE ESTERASE ,URINE LARGE (Neg); NITRITES, URINE NEGATIVE (Neg); OCCULT BLOOD,URINE SMALL (Neg); PH,URINE 6.5 (4.8-8.0); PROTEIN,URINE 30 mg/dl (Neg); UROBILINOGEN,URINE 0.2 E.U/dL (0.2-1.0)
[2023-11-17 09:00] LABS: BASOPHILS % (AUTO) 0.4 % (0-1); EOSINOPHILS # (AUTO) 0.3 X10'3 (0-0.9); EOSINOPHILS % (AUTO) 3.7 % (0-6); HEMATOCRIT 27.4 % (42.0-52.0); HEMOGLOBIN 8.6 g/dl (14.0-17.9); LYMPHOCYTES # (AUTO) 1.2 X10'3 (1.1-4.8); MEAN CORPUSCULAR HEMOGLOBIN 25.2 PG (27.0-31.0); MEAN CORPUSCULAR HGB CONC 31.3 g/dL (33.0-36.5); MEAN CORPUSCULAR VOLUME 80.6 FL (78-98); MEAN PLATELET VOLUME 6.1 FL (7.4-10.4); MONOCYTES # (AUTO) 0.8 X10'3 (0-0.9); MONOCYTES % (AUTO) 10.5 % (2-12); NEUTROPHILS # (AUTO) 5.6 X10'3 (1.8-7.7); NEUTROPHILS % (AUTO) 70.4 % (42-75); PLATELET COUNT 211 X10'3 (140-440); RED BLOOD COUNT 3.39 X10'6 (4.70-6.10); RED CELL DISTRIBUTION WIDTH 20.2 % (11.5-14.5)
[2023-11-17 09:08] LABS: UA COLLECTION TYPE FOLEY CATH
[2023-11-17 09:12] LABS: WBC,URINE TNTC /HPF (0-4)
[2023-11-17 09:13] LABS: BACTERIA,URINE NONE SEEN /HPF (Neg); MUCUS STRANDS NONE SEEN /LPF (Neg); RBC,URINE 0-2 /HPF (0-2); SQUAMOUS EPITHELIAL CELL,UR NONE SEEN /LPF (FEW)
[2023-11-17 09:15] LABS: YEAST FEW /HPF (NEGATIVE)
[2023-11-17 09:31] LABS: TOTAL PROTEIN,URINE RANDOM 77.3 MG/DL
[2023-11-17 09:37] LABS: ALANINE AMINOTRANSFERASE 12 U/L (12-78); ALBUMIN/GLOBULIN RATIO 0.4 (1.1-1.5); ALKALINE PHOSPHATASE 109 IU/L (46-116); ANION GAP 17 (8-16); ASPARTATE AMINO TRANSFERASE 5 U/L (10-37); BILIRUBIN,TOTAL 0.4 MG/DL (0.1-1.0); BLOOD UREA NITROGEN 121 MG/DL (7-18); BUN/CREATININE RATIO 9.9 (10.0-20.0); CALCIUM 8.7 MG/DL (8.5-10.1); CHLORIDE 99 MMOL/L (99-107); CREATININE 12.19 MG/DL (0.60-1.10); GLUCOSE 86 MG/DL (70-104); MAGNESIUM 2.5 MG/DL (1.5-2.4); PHOSPHORUS 8.7 MG/DL (2.3-4.5); SODIUM 132 MMOL/L (135-145); TOTAL CARBON DIOXIDE 16.4 MMOL/L (24-32); TOTAL PROTEIN 6.6 G/DL (6.4-8.2); eCRCL 5 ML/MIN; eGFR 4 ML/MIN
[2023-11-17] MEDS ORDERED: EPOETIN ALFA-EPBX 20,000 UNIT/ML 1 ML MDV IV ONE (10:55)
[2023-11-17] MEDS ORDERED: normal saline 1000ml 250 ML IV PRN (10:55)
[2023-11-17] MEDS ORDERED: heparin 1,000unit/ml 10ml vial 10 ML IV ONE (10:55)
[2023-11-17] MEDS ORDERED: heparin 1,000 units/ml 10ml inj HE ONE ×2 (11:00)
[2023-11-17] MEDS ORDERED: mannitol 12.5gm/50mL VIAL IV ONE (11:25)
[2023-11-17 12:13] LABS: UA EOSINOPHILS NO EOS /HPF
[2023-11-17] MEDS: heparin, porcine 5000 units/ml vial SQ SCH ×2 (12:27→21:47)
[2023-11-17] MEDS: CefTRIAXone/D5W-Rocephin 1gm 50 ML IV SCH (21:47)
[2023-11-18] VITALS (15 sets, daily range): BP systolic 88–116; BP diastolic 57–91; PULSE 70–118; RESP 16–20; TEMP 97.5–99.6; O2SAT 92–98
[2023-11-18] MEDS: normal saline 1000ml 1,000 ML IV SCH (00:05)
[2023-11-18] MEDS: sodium bicarbonate (8.4%) inj. 150 MEQ in dextrose 5%-water 1,000 ML IV SCH ×2 (03:09→15:50)
[2023-11-18 06:11] LABS: BASOPHILS % (AUTO) 0.5 % (0-1); EOSINOPHILS # (AUTO) 0.2 X10'3 (0-0.9); EOSINOPHILS % (AUTO) 2.7 % (0-6); HEMATOCRIT 24.4 % (42.0-52.0); HEMOGLOBIN 7.7 g/dl (14.0-17.9); LYMPHOCYTES % (AUTO) 14.4 % (21-51); MEAN CORPUSCULAR HEMOGLOBIN 24.8 PG (27.0-31.0); MEAN CORPUSCULAR HGB CONC 31.7 g/dL (33.0-36.5); MEAN CORPUSCULAR VOLUME 78.2 FL (78-98); MEAN PLATELET VOLUME 6.1 FL (7.4-10.4); MONOCYTES # (AUTO) 0.8 X10'3 (0-0.9); MONOCYTES % (AUTO) 11.5 % (2-12); NEUTROPHILS % (AUTO) 70.9 % (42-75); PLATELET COUNT 199 X10'3 (140-440); RED BLOOD COUNT 3.13 X10'6 (4.70-6.10); RED CELL DISTRIBUTION WIDTH 20.2 % (11.5-14.5); WHITE BLOOD COUNT 7.1 X10'3 (4.5-11.0)
[2023-11-18 06:30] LABS: ANION GAP 11 (8-16); BILIRUBIN,TOTAL 0.3 MG/DL (0.1-1.0); BLOOD UREA NITROGEN 79 MG/DL (7-18); BUN/CREATININE RATIO 9.2 (10.0-20.0); CALCIUM 8.4 MG/DL (8.5-10.1); CHLORIDE 99 MMOL/L (99-107); CREATININE 8.55 MG/DL (0.60-1.10); GLUCOSE 101 MG/DL (70-104); MAGNESIUM 2.1 MG/DL (1.5-2.4); PHOSPHORUS 6.8 MG/DL (2.3-4.5); SODIUM 136 MMOL/L (135-145); TOTAL CARBON DIOXIDE 26.2 MMOL/L (24-32); TOTAL PROTEIN 6.1 G/DL (6.4-8.2); eCRCL 8 ML/MIN; eGFR 6 ML/MIN
[2023-11-18 06:31] LABS: ALANINE AMINOTRANSFERASE 10 U/L (12-78); ALBUMIN 1.8 G/DL (3.4-5.0); ALBUMIN/GLOBULIN RATIO 0.4 (1.1-1.5); ALKALINE PHOSPHATASE 92 IU/L (46-116); ASPARTATE AMINO TRANSFERASE 9 U/L (10-37)
[2023-11-18 07:02] LABS: ANISOCYTOSIS 3+; MICROCYTOSIS 1+; PLATELET ESTIMATE NORMAL
[2023-11-18 07:09] LABS: ELLIPTOCYTES FEW; POLYCHROMASIA FEW
[2023-11-18] MEDS: docusate sod 100mg capsule PO SCH ×2 (07:15→20:00)
[2023-11-18] MEDS: fluticasone nasal spray 16GM bottle NS SCH (07:15)
[2023-11-18] MEDS: heparin, porcine 5000 units/ml vial SQ SCH ×2 (07:16→21:28)
[2023-11-18] MEDS: iron sucrose complex injection 200 MG in normal saline 100ml IV soln 100 ML IV SCH (08:50)
[2023-11-18] MEDS ORDERED: heparin 1,000unit/ml 10ml vial 10 ML IV ONE (09:50)
[2023-11-18] MEDS ORDERED: heparin 1,000 units/ml 10ml inj HE ONE ×2 (09:50)
[2023-11-18] MEDS ORDERED: EPOETIN ALFA-EPBX 20,000 UNIT/ML 1 ML MDV IV ONE (09:50)
[2023-11-18] MEDS: CefTRIAXone/D5W-Rocephin 1gm 50 ML IV SCH (21:28)
[2023-11-19] VITALS (7 sets, daily range): BP systolic 97–104; BP diastolic 60–76; PULSE 63–105; RESP 12–14; TEMP 98–98.5; O2SAT 93–98
[2023-11-19] MEDS: sodium bicarbonate (8.4%) inj. 150 MEQ in dextrose 5%-water 1,000 ML IV SCH (03:20)
[2023-11-19] MEDS ORDERED: diazepam inj 5 MG/ML inj. IV PRN (04:05)
[2023-11-19 06:53] LABS: BASOPHILS # (AUTO) 0.1 X10'3 (0-0.2); BASOPHILS % (AUTO) 0.6 % (0-1); EOSINOPHILS # (AUTO) 0.2 X10'3 (0-0.9); HEMATOCRIT 27.6 % (42.0-52.0); HEMOGLOBIN 8.9 g/dl (14.0-17.9); LYMPHOCYTES # (AUTO) 1.5 X10'3 (1.1-4.8); LYMPHOCYTES % (AUTO) 14.8 % (21-51); MEAN CORPUSCULAR HEMOGLOBIN 25.4 PG (27.0-31.0); MEAN CORPUSCULAR VOLUME 79.2 FL (78-98); MEAN PLATELET VOLUME 6.2 FL (7.4-10.4); MONOCYTES # (AUTO) 1.6 X10'3 (0-0.9); MONOCYTES % (AUTO) 16.6 % (2-12); NEUTROPHILS # (AUTO) 6.5 X10'3 (1.8-7.7); PLATELET COUNT 220 X10'3 (140-440); RED BLOOD COUNT 3.49 X10'6 (4.70-6.10); RED CELL DISTRIBUTION WIDTH 19.7 % (11.5-14.5); WHITE BLOOD COUNT 9.8 X10'3 (4.5-11.0)
[2023-11-19] MEDS: docusate sod 100mg capsule PO SCH ×2 (07:06→20:00)
[2023-11-19] MEDS: heparin, porcine 5000 units/ml vial SQ SCH ×2 (07:07→20:03)
[2023-11-19] MEDS: fluticasone nasal spray 16GM bottle NS SCH (07:07)
[2023-11-19 07:21] LABS: ALANINE AMINOTRANSFERASE 9 U/L (12-78); ALBUMIN/GLOBULIN RATIO 0.4 (1.1-1.5); ALKALINE PHOSPHATASE 98 IU/L (46-116); ANION GAP 15 (8-16); ASPARTATE AMINO TRANSFERASE 12 U/L (10-37); BILIRUBIN,TOTAL 0.3 MG/DL (0.1-1.0); BLOOD UREA NITROGEN 46 MG/DL (7-18); BUN/CREATININE RATIO 7.4 (10.0-20.0); CHLORIDE 100 MMOL/L (99-107); CREATININE 6.22 MG/DL (0.60-1.10); GLUCOSE 86 MG/DL (70-104); MAGNESIUM 2.1 MG/DL (1.5-2.4); PHOSPHORUS 4.8 MG/DL (2.3-4.5); POTASSIUM 3.9 MMOL/L (3.5-5.1); SODIUM 138 MMOL/L (135-145); TOTAL CARBON DIOXIDE 23.3 MMOL/L (24-32); TOTAL PROTEIN 6.9 G/DL (6.4-8.2); eCRCL 11 ML/MIN; eGFR 9 ML/MIN
[2023-11-19 07:56] LABS: ANISOCYTOSIS 2+; HYPOCHROMASIA 1+; MICROCYTOSIS 1+; NUCLEATED RED BLOOD CELLS 1 /100WBC (0-0); PLATELET ESTIMATE NORMAL; POLYCHROMASIA 1+; TOTAL CELLS COUNTED 100
[2023-11-19 07:57] LABS: ELLIPTOCYTES FEW; TEAR DROP CELLS FEW
[2023-11-19] MEDS: iron sucrose complex injection 200 MG in normal saline 100ml IV soln 100 ML IV SCH (08:00)
[2023-11-19] MEDS: CefTRIAXone/D5W-Rocephin 1gm 50 ML IV SCH (20:02)
[2023-11-19] MEDS: acetaminophen 325mg tablet PO PRN (20:03)
[2023-11-20] VITALS (13 sets, daily range): BP systolic 88–125; BP diastolic 43–76; PULSE 96–113; RESP 14–18; TEMP 97.7–98.1; O2SAT 97–100
[2023-11-20] MEDS: normal saline 1000ml 1,000 ML IV SCH (00:05)
[2023-11-20] MEDS: acetaminophen 325mg tablet PO PRN ×2 (01:51→05:46)
[2023-11-20] MEDS: heparin, porcine 5000 units/ml vial SQ SCH ×2 (08:00→21:46)
[2023-11-20 08:07] LABS: BASOPHILS # (AUTO) 0.1 X10'3 (0-0.2); BASOPHILS % (AUTO) 0.8 % (0-1); EOSINOPHILS # (AUTO) 0.5 X10'3 (0-0.9); EOSINOPHILS % (AUTO) 6.4 % (0-6); HEMATOCRIT 27.6 % (42.0-52.0); HEMOGLOBIN 8.8 g/dl (14.0-17.9); LYMPHOCYTES # (AUTO) 1.6 X10'3 (1.1-4.8); LYMPHOCYTES % (AUTO) 19.7 % (21-51); MEAN CORPUSCULAR HEMOGLOBIN 25.5 PG (27.0-31.0); MEAN CORPUSCULAR HGB CONC 31.8 g/dL (33.0-36.5); MEAN CORPUSCULAR VOLUME 80.3 FL (78-98); MEAN PLATELET VOLUME 6.4 FL (7.4-10.4); MONOCYTES # (AUTO) 1.4 X10'3 (0-0.9); MONOCYTES % (AUTO) 16.8 % (2-12); NEUTROPHILS # (AUTO) 4.7 X10'3 (1.8-7.7); NEUTROPHILS % (AUTO) 56.3 % (42-75); PLATELET COUNT 240 X10'3 (140-440); RED BLOOD COUNT 3.43 X10'6 (4.70-6.10); RED CELL DISTRIBUTION WIDTH 20.7 % (11.5-14.5); WHITE BLOOD COUNT 8.3 X10'3 (4.5-11.0)
[2023-11-20 08:41] LABS: ALANINE AMINOTRANSFERASE 10 U/L (12-78); ALBUMIN 2.1 G/DL (3.4-5.0); ALBUMIN/GLOBULIN RATIO 0.4 (1.1-1.5); ALKALINE PHOSPHATASE 98 IU/L (46-116); ANION GAP 14 (8-16); ASPARTATE AMINO TRANSFERASE 11 U/L (10-37); BILIRUBIN,TOTAL 0.3 MG/DL (0.1-1.0); BLOOD UREA NITROGEN 51 MG/DL (7-18); BUN/CREATININE RATIO 7.2 (10.0-20.0); CALCIUM 9.2 MG/DL (8.5-10.1); CHLORIDE 99 MMOL/L (99-107); CREATININE 7.08 MG/DL (0.60-1.10); GLUCOSE 84 MG/DL (70-104); POTASSIUM 3.7 MMOL/L (3.5-5.1); SODIUM 136 MMOL/L (135-145); TOTAL CARBON DIOXIDE 23.4 MMOL/L (24-32); eCRCL 9 ML/MIN; eGFR 8 ML/MIN
[2023-11-20] MEDS ORDERED: albumin (human) 25% 100ml IV 100 ML IV PRN (09:45)
[2023-11-20] MEDS ORDERED: heparin 1,000unit/ml 10ml vial 10 ML IV ONE (09:45)
[2023-11-20] MEDS ORDERED: EPOETIN ALFA-EPBX 20,000 UNIT/ML 1 ML MDV IV ONE (09:45)
[2023-11-20] MEDS ORDERED: heparin 1,000 units/ml 10ml inj HE ONE ×2 (09:50)
[2023-11-20] MEDS: iron sucrose complex injection 200 MG in normal saline 100ml IV soln 100 ML IV SCH (10:57)
[2023-11-20] MEDS: fluticasone nasal spray 16GM bottle NS SCH (10:57)
[2023-11-20] MEDS: docusate sod 100mg capsule PO SCH ×2 (10:58→21:54)
[2023-11-20 11:27] LABS: % IRON SATURATION 22 % (11-46); IRON 36 UG/DL (53-167); TOTAL IRON BINDING CAPACITY 162 UG/DL (259-388)
[2023-11-20 11:49] LABS: FERRITIN 313 NG/ML (26-388)
[2023-11-20] MEDS ORDERED: heparin 1,000unit/ml 10ml vial 10 ML ONE (13:26)
[2023-11-20] MEDS ORDERED: LIDOcaine 1% (10mg/ml)w/preservative inj. 20ml MDV ONE (13:26)
[2023-11-20] MEDS ORDERED: fentaNYL/PF 50MCG/1 ML 2ML syringe ONE (14:21)
[2023-11-20] MEDS: CefTRIAXone/D5W-Rocephin 1gm 50 ML IV SCH (21:46)
[2023-11-21] VITALS (7 sets, daily range): BP systolic 94–115; BP diastolic 60–72; PULSE 90–114; RESP 14–22; TEMP 97.8–98.4; O2SAT 96–100
[2023-11-21] MEDS: ondansetron/PF 4mg/2ml inj IV PRN ×2 (00:56→17:28)
[2023-11-21] MEDS: acetaminophen 325mg tablet PO PRN ×2 (01:17→19:37)
[2023-11-21 07:04] LABS: BASOPHILS # (AUTO) 0.1 X10'3 (0-0.2); BASOPHILS % (AUTO) 0.7 % (0-1); EOSINOPHILS # (AUTO) 0.3 X10'3 (0-0.9); EOSINOPHILS % (AUTO) 2.7 % (0-6); HEMATOCRIT 28.8 % (42.0-52.0); LYMPHOCYTES # (AUTO) 1.8 X10'3 (1.1-4.8); LYMPHOCYTES % (AUTO) 15.1 % (21-51); MEAN CORPUSCULAR HEMOGLOBIN 25.5 PG (27.0-31.0); MEAN CORPUSCULAR HGB CONC 31.4 g/dL (33.0-36.5); MEAN CORPUSCULAR VOLUME 81.2 FL (78-98); MEAN PLATELET VOLUME 6.5 FL (7.4-10.4); MONOCYTES # (AUTO) 1.7 X10'3 (0-0.9); MONOCYTES % (AUTO) 14.6 % (2-12); NEUTROPHILS # (AUTO) 7.9 X10'3 (1.8-7.7); NEUTROPHILS % (AUTO) 66.9 % (42-75); PLATELET COUNT 283 X10'3 (140-440); RED BLOOD COUNT 3.55 X10'6 (4.70-6.10); RED CELL DISTRIBUTION WIDTH 19.8 % (11.5-14.5); WHITE BLOOD COUNT 11.8 X10'3 (4.5-11.0)
[2023-11-21 07:21] LABS: ALANINE AMINOTRANSFERASE 12 U/L (12-78); ALBUMIN 2.6 G/DL (3.4-5.0); ALBUMIN/GLOBULIN RATIO 0.6 (1.1-1.5); ALKALINE PHOSPHATASE 85 IU/L (46-116); ANION GAP 7 (8-16); ASPARTATE AMINO TRANSFERASE 12 U/L (10-37); BILIRUBIN,TOTAL 0.3 MG/DL (0.1-1.0); BLOOD UREA NITROGEN 24 MG/DL (7-18); CALCIUM 9.4 MG/DL (8.5-10.1); CHLORIDE 100 MMOL/L (99-107); CREATININE 4.78 MG/DL (0.60-1.10); GLUCOSE 98 MG/DL (70-104); PHOSPHORUS 3.4 MG/DL (2.3-4.5); SODIUM 136 MMOL/L (135-145); TOTAL CARBON DIOXIDE 28.9 MMOL/L (24-32); TOTAL PROTEIN 7.3 G/DL (6.4-8.2); eCRCL 14 ML/MIN; eGFR 12 ML/MIN
[2023-11-21] MEDS: docusate sod 100mg capsule PO SCH ×2 (08:00→19:33)
[2023-11-21] MEDS: fluticasone nasal spray 16GM bottle NS SCH (09:09)
[2023-11-21] MEDS: fluconazole 100mg tablet PO SCH (09:10)
[2023-11-21] MEDS: HYDROcodone/acetaminophen 5mg/325mg tablet PO PRN ×2 (09:13→14:23)
[2023-11-21] MEDS: heparin, porcine 5000 units/ml vial SQ SCH ×2 (09:15→19:33)
[2023-11-21 10:39] LABS: HBSAG SCREEN Negative (Negative)
[2023-11-21] MEDS: temazepam 15mg capsule PO PRN (21:08)
[2023-11-21] MEDS: CefTRIAXone/D5W-Rocephin 1gm 50 ML IV SCH (21:09)
[2023-11-22] VITALS (14 sets, daily range): BP systolic 85–117; BP diastolic 55–89; PULSE 87–122; RESP 14–20; TEMP 97.5–98.4; O2SAT 91–100
[2023-11-22] MEDS: HYDROcodone/acetaminophen 5mg/325mg tablet PO PRN ×3 (00:55→20:31)
[2023-11-22] MEDS ORDERED: EPOETIN ALFA-EPBX 20,000 UNIT/ML 1 ML MDV IV ONE (06:55)
[2023-11-22] MEDS ORDERED: heparin 1,000unit/ml 10ml vial 10 ML IV ONE (06:55)
[2023-11-22] MEDS ORDERED: albumin (human) 25% 100ml IV 100 ML IV PRN (06:55)
[2023-11-22] MEDS ORDERED: heparin 1,000 units/ml 10ml inj HE ONE ×2 (07:00)
[2023-11-22] MEDS: fluticasone nasal spray 16GM bottle NS SCH (08:00)
[2023-11-22 08:53] LABS: MAGNESIUM 2.1 MG/DL (1.5-2.4); PHOSPHORUS 4.9 MG/DL (2.3-4.5)
[2023-11-22 09:51] LABS: ALANINE AMINOTRANSFERASE 14 U/L (12-78); ALBUMIN 2.6 G/DL (3.4-5.0); ALBUMIN/GLOBULIN RATIO 0.6 (1.1-1.5); ALKALINE PHOSPHATASE 86 IU/L (46-116); ANION GAP 10 (8-16); ASPARTATE AMINO TRANSFERASE 11 U/L (10-37); BILIRUBIN,TOTAL 0.3 MG/DL (0.1-1.0); BLOOD UREA NITROGEN 34 MG/DL (7-18); BUN/CREATININE RATIO 5.1 (10.0-20.0); CALCIUM 9.2 MG/DL (8.5-10.1); CHLORIDE 99 MMOL/L (99-107); CREATININE 6.61 MG/DL (0.60-1.10); GLUCOSE 87 MG/DL (70-104); POTASSIUM 3.9 MMOL/L (3.5-5.1); SODIUM 136 MMOL/L (135-145); TOTAL CARBON DIOXIDE 26.6 MMOL/L (24-32); TOTAL PROTEIN 7.2 G/DL (6.4-8.2); eCRCL 10 ML/MIN; eGFR 8 ML/MIN
[2023-11-22] MEDS: docusate sod 100mg capsule PO SCH ×2 (12:30→20:00)
[2023-11-22] MEDS: fluconazole 100mg tablet PO SCH (12:31)
[2023-11-22] MEDS: heparin, porcine 5000 units/ml vial SQ SCH ×2 (12:37→20:32)
[2023-11-22] MEDS: CefTRIAXone/D5W-Rocephin 1gm 50 ML IV SCH (20:32)
[2023-11-22] MEDS: normal saline 1000ml 1,000 ML IV SCH (20:33)
[2023-11-22] MEDS: temazepam 15mg capsule PO PRN (23:38)
[2023-11-23] VITALS (8 sets, daily range): BP systolic 93–131; BP diastolic 50–78; PULSE 70–91; RESP 14–20; TEMP 97–98.2; O2SAT 94–99
[2023-11-23] MEDS: ondansetron/PF 4mg/2ml inj IV PRN ×2 (07:19→15:46)
[2023-11-23 07:41] LABS: BASOPHILS # (AUTO) 0.1 X10'3 (0-0.2); BASOPHILS % (AUTO) 0.7 % (0-1); EOSINOPHILS # (AUTO) 0.4 X10'3 (0-0.9); EOSINOPHILS % (AUTO) 3.6 % (0-6); HEMATOCRIT 29.9 % (42.0-52.0); HEMOGLOBIN 9.2 g/dl (14.0-17.9); LYMPHOCYTES # (AUTO) 1.9 X10'3 (1.1-4.8); LYMPHOCYTES % (AUTO) 16.6 % (21-51); MEAN CORPUSCULAR HEMOGLOBIN 25.8 PG (27.0-31.0); MEAN CORPUSCULAR HGB CONC 30.6 g/dL (33.0-36.5); MEAN CORPUSCULAR VOLUME 84.4 FL (78-98); MEAN PLATELET VOLUME 6.7 FL (7.4-10.4); MONOCYTES # (AUTO) 1.6 X10'3 (0-0.9); MONOCYTES % (AUTO) 13.7 % (2-12); NEUTROPHILS # (AUTO) 7.5 X10'3 (1.8-7.7); NEUTROPHILS % (AUTO) 65.4 % (42-75); PLATELET COUNT 275 X10'3 (140-440); RED BLOOD COUNT 3.55 X10'6 (4.70-6.10); RED CELL DISTRIBUTION WIDTH 20.2 % (11.5-14.5); WHITE BLOOD COUNT 11.4 X10'3 (4.5-11.0)
[2023-11-23 07:54] LABS: ALANINE AMINOTRANSFERASE 10 U/L (12-78); ALBUMIN 2.5 G/DL (3.4-5.0); ALBUMIN/GLOBULIN RATIO 0.5 (1.1-1.5); ALKALINE PHOSPHATASE 84 IU/L (46-116); ANION GAP 10 (8-16); ASPARTATE AMINO TRANSFERASE 12 U/L (10-37); BILIRUBIN,TOTAL 0.3 MG/DL (0.1-1.0); BLOOD UREA NITROGEN 25 MG/DL (7-18); BUN/CREATININE RATIO 4.5 (10.0-20.0); CALCIUM 9.2 MG/DL (8.5-10.1); CHLORIDE 98 MMOL/L (99-107); GLUCOSE 92 MG/DL (70-104); MAGNESIUM 1.9 MG/DL (1.5-2.4); PHOSPHORUS 4.6 MG/DL (2.3-4.5); POTASSIUM 3.9 MMOL/L (3.5-5.1); SODIUM 134 MMOL/L (135-145); TOTAL CARBON DIOXIDE 26.4 MMOL/L (24-32); TOTAL PROTEIN 7.2 G/DL (6.4-8.2); eCRCL 12 ML/MIN; eGFR 10 ML/MIN
[2023-11-23] MEDS: heparin, porcine 5000 units/ml vial SQ SCH ×2 (08:04→20:26)
[2023-11-23] MEDS: docusate sod 100mg capsule PO SCH ×2 (08:05→20:25)
[2023-11-23] MEDS: fluconazole 100mg tablet PO SCH (08:05)
[2023-11-23] MEDS: fluticasone nasal spray 16GM bottle NS SCH (08:05)
[2023-11-23 08:42] LABS: ANISOCYTOSIS 3+; HYPOCHROMASIA 1+; PLATELET ESTIMATE NORMAL; POLYCHROMASIA 1+; STOMATOCYTES 1+
[2023-11-23] MEDS: acetaminophen 325mg tablet PO PRN (17:25)
[2023-11-23] MEDS: temazepam 15mg capsule PO PRN (20:25)
[2023-11-23] MEDS: CefTRIAXone/D5W-Rocephin 1gm 50 ML IV SCH (20:25)
[2023-11-23] MEDS: HYDROcodone/acetaminophen 5mg/325mg tablet PO PRN (20:26)
[2023-11-23] MEDS: normal saline 1000ml 1,000 ML IV SCH (23:26)
[2023-11-24] VITALS (20 sets, daily range): BP systolic 79–105; BP diastolic 43–65; PULSE 66–107; RESP 12–20; TEMP 97.2–99.2; O2SAT 95–100
[2023-11-24 06:40] LABS: BASOPHILS # (AUTO) 0.1 X10'3 (0-0.2); BASOPHILS % (AUTO) 0.7 % (0-1); EOSINOPHILS # (AUTO) 0.4 X10'3 (0-0.9); EOSINOPHILS % (AUTO) 4.1 % (0-6); HEMATOCRIT 29.1 % (42.0-52.0); HEMOGLOBIN 9.1 g/dl (14.0-17.9); LYMPHOCYTES # (AUTO) 1.7 X10'3 (1.1-4.8); LYMPHOCYTES % (AUTO) 18.3 % (21-51); MEAN CORPUSCULAR HEMOGLOBIN 26.2 PG (27.0-31.0); MEAN CORPUSCULAR HGB CONC 31.3 g/dL (33.0-36.5); MEAN CORPUSCULAR VOLUME 83.6 FL (78-98); MEAN PLATELET VOLUME 6.9 FL (7.4-10.4); MONOCYTES # (AUTO) 1.1 X10'3 (0-0.9); MONOCYTES % (AUTO) 11.3 % (2-12); NEUTROPHILS # (AUTO) 6.2 X10'3 (1.8-7.7); NEUTROPHILS % (AUTO) 65.6 % (42-75); PLATELET COUNT 237 X10'3 (140-440); RED BLOOD COUNT 3.47 X10'6 (4.70-6.10); RED CELL DISTRIBUTION WIDTH 21.2 % (11.5-14.5); WHITE BLOOD COUNT 9.5 X10'3 (4.5-11.0)
[2023-11-24 07:12] LABS: ALANINE AMINOTRANSFERASE 14 U/L (12-78); ALBUMIN 2.3 G/DL (3.4-5.0); ALBUMIN/GLOBULIN RATIO 0.5 (1.1-1.5); ALKALINE PHOSPHATASE 86 IU/L (46-116); ANION GAP 14 (8-16); ASPARTATE AMINO TRANSFERASE 11 U/L (10-37); BILIRUBIN,TOTAL 0.3 MG/DL (0.1-1.0); BLOOD UREA NITROGEN 34 MG/DL (7-18); BUN/CREATININE RATIO 4.9 (10.0-20.0); CALCIUM 8.9 MG/DL (8.5-10.1); CHLORIDE 95 MMOL/L (99-107); CREATININE 6.99 MG/DL (0.60-1.10); GLUCOSE 100 MG/DL (70-104); PHOSPHORUS 5.7 MG/DL (2.3-4.5); POTASSIUM 3.7 MMOL/L (3.5-5.1); SODIUM 132 MMOL/L (135-145); TOTAL CARBON DIOXIDE 23.3 MMOL/L (24-32); TOTAL PROTEIN 6.7 G/DL (6.4-8.2); eCRCL 10 ML/MIN; eGFR 8 ML/MIN
[2023-11-24] MEDS: fluticasone nasal spray 16GM bottle NS SCH (07:34)
[2023-11-24] MEDS: heparin, porcine 5000 units/ml vial SQ SCH ×2 (07:35→21:09)
[2023-11-24] MEDS: docusate sod 100mg capsule PO SCH ×2 (07:35→20:00)
[2023-11-24] MEDS: fluconazole 100mg tablet PO SCH (07:35)
[2023-11-24] MEDS ORDERED: EPOETIN ALFA-EPBX 20,000 UNIT/ML 1 ML MDV IV ONE (08:10)
[2023-11-24] MEDS ORDERED: albumin (human) 25% 100ml IV 100 ML IV PRN (08:10)
[2023-11-24] MEDS ORDERED: heparin 1,000unit/ml 10ml vial 10 ML IV ONE (08:10)
[2023-11-24] MEDS ORDERED: heparin 1,000 units/ml 10ml inj HE ONE ×2 (08:15)
[2023-11-24] MEDS: HYDROcodone/acetaminophen 5mg/325mg tablet PO PRN ×2 (16:53→21:08)
[2023-11-24] MEDS: temazepam 15mg capsule PO PRN (21:08)
[2023-11-24] MEDS: CefTRIAXone/D5W-Rocephin 1gm 50 ML IV SCH (21:09)
[2023-11-25] VITALS (8 sets, daily range): BP systolic 86–107; BP diastolic 55–69; PULSE 72–106; RESP 14–20; TEMP 98.2–98.6; O2SAT 94–99
[2023-11-25] MEDS: ondansetron/PF 4mg/2ml inj IV PRN (01:58)
[2023-11-25] MEDS: acetaminophen 325mg tablet PO PRN ×2 (04:13→21:11)
[2023-11-25 06:36] LABS: BASOPHILS # (AUTO) 0.1 X10'3 (0-0.2); BASOPHILS % (AUTO) 0.8 % (0-1); EOSINOPHILS # (AUTO) 0.4 X10'3 (0-0.9); HEMATOCRIT 29.2 % (42.0-52.0); HEMOGLOBIN 9.1 g/dl (14.0-17.9); LYMPHOCYTES # (AUTO) 1.9 X10'3 (1.1-4.8); LYMPHOCYTES % (AUTO) 14.4 % (21-51); MEAN CORPUSCULAR HEMOGLOBIN 26.2 PG (27.0-31.0); MEAN CORPUSCULAR HGB CONC 31.2 g/dL (33.0-36.5); MEAN PLATELET VOLUME 7.3 FL (7.4-10.4); MONOCYTES # (AUTO) 1.9 X10'3 (0-0.9); MONOCYTES % (AUTO) 14.3 % (2-12); NEUTROPHILS # (AUTO) 8.8 X10'3 (1.8-7.7); NEUTROPHILS % (AUTO) 67.5 % (42-75); PLATELET COUNT 295 X10'3 (140-440); RED BLOOD COUNT 3.47 X10'6 (4.70-6.10); RED CELL DISTRIBUTION WIDTH 22.2 % (11.5-14.5)
[2023-11-25 06:40] LABS: ALANINE AMINOTRANSFERASE 15 U/L (12-78); ALBUMIN 2.9 G/DL (3.4-5.0); ALBUMIN/GLOBULIN RATIO 0.6 (1.1-1.5); ALKALINE PHOSPHATASE 84 IU/L (46-116); ANION GAP 12 (8-16); ASPARTATE AMINO TRANSFERASE 12 U/L (10-37); BILIRUBIN,TOTAL 0.3 MG/DL (0.1-1.0); BLOOD UREA NITROGEN 16 MG/DL (7-18); BUN/CREATININE RATIO 3.3 (10.0-20.0); CALCIUM 9.2 MG/DL (8.5-10.1); CHLORIDE 98 MMOL/L (99-107); CREATININE 4.81 MG/DL (0.60-1.10); GLUCOSE 97 MG/DL (70-104); POTASSIUM 3.8 MMOL/L (3.5-5.1); SODIUM 135 MMOL/L (135-145); TOTAL CARBON DIOXIDE 24.7 MMOL/L (24-32); TOTAL PROTEIN 7.4 G/DL (6.4-8.2); eCRCL 14 ML/MIN; eGFR 12 ML/MIN
[2023-11-25] MEDS: fluticasone nasal spray 16GM bottle NS SCH (07:43)
[2023-11-25] MEDS: heparin, porcine 5000 units/ml vial SQ SCH ×2 (07:44→19:54)
[2023-11-25] MEDS: fluconazole 100mg tablet PO SCH (07:44)
[2023-11-25] MEDS: docusate sod 100mg capsule PO SCH ×2 (07:44→19:47)
[2023-11-25] MEDS: diazepam inj 5 MG/ML inj. IV PRN (07:44)
[2023-11-25] MEDS: HYDROcodone/acetaminophen 5mg/325mg tablet PO PRN ×2 (09:29→14:13)
[2023-11-25] MEDS: temazepam 15mg capsule PO PRN (21:09)
[2023-11-26] VITALS (17 sets, daily range): BP systolic 92–130; BP diastolic 49–87; PULSE 80–114; RESP 14–20; TEMP 97.4–98.6; O2SAT 94–100
[2023-11-26 06:02] LABS: MEAN CORPUSCULAR HGB CONC 31.4 g/dL (33.0-36.5); MEAN PLATELET VOLUME 6.7 FL (7.4-10.4)
[2023-11-26 06:06] LABS: BASOPHILS # (AUTO) 0.1 X10'3 (0-0.2); BASOPHILS % (AUTO) 0.8 % (0-1); EOSINOPHILS # (AUTO) 0.3 X10'3 (0-0.9); EOSINOPHILS % (AUTO) 4.2 % (0-6); HEMATOCRIT 29.9 % (42.0-52.0); HEMOGLOBIN 9.4 g/dl (14.0-17.9); LYMPHOCYTES # (AUTO) 1.7 X10'3 (1.1-4.8); LYMPHOCYTES % (AUTO) 20.3 % (21-51); MEAN CORPUSCULAR HEMOGLOBIN 26.5 PG (27.0-31.0); MEAN CORPUSCULAR VOLUME 84.4 FL (78-98); MONOCYTES # (AUTO) 1.1 X10'3 (0-0.9); MONOCYTES % (AUTO) 13.5 % (2-12); NEUTROPHILS # (AUTO) 5.2 X10'3 (1.8-7.7); NEUTROPHILS % (AUTO) 61.2 % (42-75); PLATELET COUNT 257 X10'3 (140-440); RED BLOOD COUNT 3.55 X10'6 (4.70-6.10); RED CELL DISTRIBUTION WIDTH 22.4 % (11.5-14.5); WHITE BLOOD COUNT 8.4 X10'3 (4.5-11.0)
[2023-11-26 06:21] LABS: ALANINE AMINOTRANSFERASE 12 U/L (12-78); ALBUMIN 2.7 G/DL (3.4-5.0); ALBUMIN/GLOBULIN RATIO 0.6 (1.1-1.5); ALKALINE PHOSPHATASE 83 IU/L (46-116); ANION GAP 11 (8-16); ASPARTATE AMINO TRANSFERASE 16 U/L (10-37); BILIRUBIN,TOTAL 0.3 MG/DL (0.1-1.0); BLOOD UREA NITROGEN 28 MG/DL (7-18); CALCIUM 9.3 MG/DL (8.5-10.1); CHLORIDE 96 MMOL/L (99-107); CREATININE 6.98 MG/DL (0.60-1.10); GLUCOSE 92 MG/DL (70-104); POTASSIUM 4.2 MMOL/L (3.5-5.1); SODIUM 132 MMOL/L (135-145); TOTAL CARBON DIOXIDE 24.8 MMOL/L (24-32); TOTAL PROTEIN 7.2 G/DL (6.4-8.2); eCRCL 10 ML/MIN; eGFR 8 ML/MIN
[2023-11-26] MEDS ORDERED: heparin 1,000unit/ml 10ml vial 10 ML IV ONE (07:45)
[2023-11-26] MEDS ORDERED: EPOETIN ALFA-EPBX 20,000 UNIT/ML 1 ML MDV IV ONE (07:45)
[2023-11-26] MEDS ORDERED: albumin (human) 25% 100ml IV 100 ML IV PRN (07:45)
[2023-11-26] MEDS ORDERED: heparin 1,000 units/ml 10ml inj HE ONE ×2 (07:50)
[2023-11-26] MEDS: heparin, porcine 5000 units/ml vial SQ SCH ×2 (08:00→20:36)
[2023-11-26] MEDS: docusate sod 100mg capsule PO SCH ×2 (08:00→20:00)
[2023-11-26 08:10] LABS: PLATELET ESTIMATE NORMAL
[2023-11-26 08:11] LABS: ANISOCYTOSIS 3+; HYPOCHROMASIA 1+; POLYCHROMASIA 1+
[2023-11-26] MEDS: HYDROcodone/acetaminophen 5mg/325mg tablet PO PRN ×2 (09:49→17:52)
[2023-11-26] MEDS: fluticasone nasal spray 16GM bottle NS SCH (09:58)
[2023-11-26] MEDS ORDERED: ALTEPLASE ICATH ONE (11:00)
[2023-11-26] MEDS ORDERED: tPA-cathflo 2 MG/2 ml IV flush IVF ONE ×2 (11:15→15:30)
[2023-11-26] MEDS: acetaminophen 325mg tablet PO PRN (13:08)
[2023-11-26] MEDS: diazepam inj 5 MG/ML inj. IV PRN (14:55)
[2023-11-26] MEDS: NUT.TX.IMP.RENAL FXN,LAC-REDUC (Nepro) 237 ML VANILLA PO SCH (18:04)
[2023-11-26] MEDS: temazepam 15mg capsule PO PRN (20:36)
[2023-11-27 02:35] VITALS: BP 95/61; PULSE 82; RESP 16; TEMP 98; O2SAT 98
[2023-11-27 06:53] LABS: BASOPHILS # (AUTO) 0.1 X10'3 (0-0.2); BASOPHILS % (AUTO) 0.7 % (0-1); EOSINOPHILS # (AUTO) 0.3 X10'3 (0-0.9); EOSINOPHILS % (AUTO) 2.4 % (0-6); HEMATOCRIT 30.4 % (42.0-52.0); HEMOGLOBIN 9.4 g/dl (14.0-17.9); LYMPHOCYTES # (AUTO) 1.7 X10'3 (1.1-4.8); LYMPHOCYTES % (AUTO) 13.7 % (21-51); MEAN CORPUSCULAR HEMOGLOBIN 26.3 PG (27.0-31.0); MEAN CORPUSCULAR VOLUME 84.9 FL (78-98); MONOCYTES # (AUTO) 1.5 X10'3 (0-0.9); MONOCYTES % (AUTO) 12.1 % (2-12); NEUTROPHILS # (AUTO) 8.9 X10'3 (1.8-7.7); NEUTROPHILS % (AUTO) 71.1 % (42-75); PLATELET COUNT 270 X10'3 (140-440); RED BLOOD COUNT 3.58 X10'6 (4.70-6.10); RED CELL DISTRIBUTION WIDTH 22.3 % (11.5-14.5); WHITE BLOOD COUNT 12.5 X10'3 (4.5-11.0)
[2023-11-27 07:00] VITALS: BP 79/57; PULSE 104; RESP 22; TEMP 98.2; O2SAT 95
[2023-11-27 07:04] LABS: ALANINE AMINOTRANSFERASE 15 U/L (12-78); ALBUMIN 2.7 G/DL (3.4-5.0); ALBUMIN/GLOBULIN RATIO 0.6 (1.1-1.5); ALKALINE PHOSPHATASE 90 IU/L (46-116); ANION GAP 13 (8-16); ASPARTATE AMINO TRANSFERASE 13 U/L (10-37); BILIRUBIN,TOTAL 0.3 MG/DL (0.1-1.0); BLOOD UREA NITROGEN 26 MG/DL (7-18); BUN/CREATININE RATIO 4.2 (10.0-20.0); CALCIUM 9.2 MG/DL (8.5-10.1); CHLORIDE 96 MMOL/L (99-107); CREATININE 6.13 MG/DL (0.60-1.10); GLUCOSE 103 MG/DL (70-104); SODIUM 132 MMOL/L (135-145); TOTAL CARBON DIOXIDE 23.5 MMOL/L (24-32); TOTAL PROTEIN 7.4 G/DL (6.4-8.2); eCRCL 11 ML/MIN; eGFR 9 ML/MIN
[2023-11-27] MEDS: docusate sod 100mg capsule PO SCH (08:00)
[2023-11-27] MEDS: NUT.TX.IMP.RENAL FXN,LAC-REDUC (Nepro) 237 ML VANILLA PO SCH ×4 (08:00→13:50)
[2023-11-27] MEDS ORDERED: folic acid/vitamin B complex w/vitamin C 0.8mg tablet PO SCH (08:00)
[2023-11-27] MEDS: heparin, porcine 5000 units/ml vial SQ SCH (08:39)
[2023-11-27] MEDS: fluticasone nasal spray 16GM bottle NS SCH (08:39)
[2023-11-27 08:48] VITALS: BP 90/58
[2023-11-27] MEDS: acetaminophen 325mg tablet PO PRN (09:48)
[2023-11-27 11:00] VITALS: BP 78/55; PULSE 103; RESP 20; TEMP 98.6; O2SAT 96
[2023-11-27] MEDS ORDERED: heparin 1,000 units/ml 10ml inj HE ONE ×2 (11:50)
[2023-11-27] MEDS: diazepam inj 5 MG/ML inj. IV PRN (13:02)
== END 2023-11-27 14:45 | disposition home or self-care (01) | DRG 682 ==
LOC: ER 19:32 → ED HOLD 11-16 00:14 → EDBEDREQ 11-16 16:36 → PCU 3S 11-16 17:16
PROVIDERS: ADMIT Family Medicine; ATTEND Internal Medicine
PROC: 05HM33Z Insertion of Infusion Device into Right Internal Jugular Vein, Percutaneous Approach (ICD-10-PCS; principal; 2023-11-17)
PROC: 5A1D70Z Performance of Urinary Filtration, Intermittent, Less than 6 Hours Per Day (ICD-10-PCS; 2023-11-17)
PROC: 5A1D70Z Performance of Urinary Filtration, Intermittent, Less than 6 Hours Per Day (ICD-10-PCS; 2023-11-18)
PROC: 5A1D70Z Performance of Urinary Filtration, Intermittent, Less than 6 Hours Per Day (ICD-10-PCS; 2023-11-20)
DX: N17.9 Acute kidney failure, unspecified (principal); G93.41 Metabolic encephalopathy; J96.21 Acute and chronic respiratory failure with hypoxia; E87.1 Hypo-osmolality and hyponatremia; E87.20 Acidosis, unspecified; I13.2 Hypertensive heart and chronic kidney disease with heart failure and with stage 5 chronic kidney disease, or end stage renal disease; N39.0 Urinary tract infection, site not specified; Z68.43 Body mass index [BMI] 50.0-59.9, adult; E11.22 Type 2 diabetes mellitus with diabetic chronic kidney disease; E11.610 Type 2 diabetes mellitus with diabetic neuropathic arthropathy; E66.01 Morbid (severe) obesity due to excess calories; E86.1 Hypovolemia; G47.33 Obstructive sleep apnea (adult) (pediatric); G89.4 Chronic pain syndrome; I50.9 Heart failure, unspecified; J44.9 Chronic obstructive pulmonary disease, unspecified; N18.6 End stage renal disease; N13.9 Obstructive and reflux uropathy, unspecified; D64.9 Anemia, unspecified; N40.1 Benign prostatic hyperplasia with lower urinary tract symptoms; Z80.3 Family history of malignant neoplasm of breast; Z82.3 Family history of stroke; Z83.3 Family history of diabetes mellitus; Z86.73 Personal history of transient ischemic attack (TIA), and cerebral infarction without residual deficits; Z87.440 Personal history of urinary (tract) infections; Z87.442 Personal history of urinary calculi; Z87.891 Personal history of nicotine dependence; Z90.49 Acquired absence of other specified parts of digestive tract; Z91.041 Radiographic dye allergy status; Z99.2 Dependence on renal dialysis; Z99.3 Dependence on wheelchair; Z99.81 Dependence on supplemental oxygen; Z79.899 Other long term (current) drug therapy
CPT/HCPCS: 36415; 36558; 71045; 76770; 76937; 77001; 80053; 81001; 82570; 82728; 82948; 83540; 83550; 83605; 83735; 83880; 83930; 83935; 84100; 84133; 84145; 84156; 84300; 84484; 85007; 85008; 85025; 85379; 85610; 85730; 86704; 87040; 87077; 87081; 87088; 87186; 87207; 87340; 93005; 96365; 96367; 96375; 97161; 97530; 99285; A4314; A4615; A4620; A5200; A6209; A6212; A6213; A6250; A6258; A6402; A6449; A9270; C1750; C1752; C1769; C1894; E1594; G0257; G0378; J0696; J1644; J1756; J2150; J2405; J2997; J3010; J3360; J3370; J3490; J7030; J7070; P9047; Q4081

== ENCOUNTER 2023-12-13 06:31 | Inpatient (IN) | payer BC, MEDICARE ==
[~2023-12-13] VITALS: Ht 172.7 cm; Wt 106.0 kg
[~2023-12-13 06:31] MED LIST changes: +DIAZ5TAB4 PO; +FLO0.4C PO; -MULT-342 PO; -POTA-192 PO
[2023-12-13 07:42] LABS: BASOPHILS % (AUTO) 0.2 % (0-1); EOSINOPHILS % (AUTO) 0.1 % (0-6); HEMATOCRIT 23.8 % (42.0-52.0); HEMOGLOBIN 7.4 g/dl (14.0-17.9); LYMPHOCYTES # (AUTO) 0.8 X10'3 (1.1-4.8); LYMPHOCYTES % (AUTO) 8.5 % (21-51); MEAN CORPUSCULAR HEMOGLOBIN 26.6 PG (27.0-31.0); MEAN CORPUSCULAR HGB CONC 31.3 g/dL (33.0-36.5); MEAN PLATELET VOLUME 6.4 FL (7.4-10.4); MONOCYTES # (AUTO) 1.4 X10'3 (0-0.9); MONOCYTES % (AUTO) 14.1 % (2-12); NEUTROPHILS # (AUTO) 7.5 X10'3 (1.8-7.7); NEUTROPHILS % (AUTO) 77.1 % (42-75); PLATELET COUNT 238 X10'3 (140-440); RED CELL DISTRIBUTION WIDTH 20.8 % (11.5-14.5); WHITE BLOOD COUNT 9.7 X10'3 (4.5-11.0)
[2023-12-13] MEDS ORDERED: CefTRIAXone 2gm/D5W 50ml BAG 50 ML IV SCH (08:00)
[2023-12-13 08:09] LABS: UA COLLECTION TYPE FOLEY CATH
[2023-12-13 08:10] LABS: CLARITY,URINE TURBID (Clear); COLOR,URINE STRAW (Yellow); PROTEIN,URINE 100 mg/dl (Neg)
[2023-12-13 08:11] LABS: BILIRUBIN,URINE NEGATIVE (Neg); GLUCOSE, URINE NEGATIVE (Neg); KETONES,URINE NEGATIVE (Neg); LEUKOCYTE ESTERASE ,URINE LARGE (Neg); NITRITES, URINE NEGATIVE (Neg); OCCULT BLOOD,URINE LARGE (Neg); UROBILINOGEN,URINE 0.2 E.U/dL (0.2-1.0)
[2023-12-13 08:15] LABS: SQUAMOUS EPITHELIAL CELL,UR MODERATE /LPF (FEW)
[2023-12-13 08:16] LABS: RBC,URINE TNTC /HPF (0-2); WBC,URINE TNTC /HPF (0-4)
[2023-12-13 08:17] LABS: TRANSITIONAL EPI CELLS,URINE MANY /HPF; WBC CLUMPS,URINE MANY /HPF (NEGATIVE)
[2023-12-13 08:21] LABS: ALANINE AMINOTRANSFERASE 8 U/L (12-78); ALBUMIN 1.4 G/DL (3.4-5.0); ALBUMIN/GLOBULIN RATIO 0.3 (1.1-1.5); ALKALINE PHOSPHATASE 95 IU/L (46-116); ANION GAP 7 (8-16); ASPARTATE AMINO TRANSFERASE 16 U/L (10-37); BACTERIA,URINE 1+ /HPF (Neg); BILIRUBIN,TOTAL 0.4 MG/DL (0.1-1.0); BLOOD UREA NITROGEN 34 MG/DL (7-18); BUN/CREATININE RATIO 5.9 (10.0-20.0); CALCIUM 8.3 MG/DL (8.5-10.1); CHLORIDE 98 MMOL/L (99-107); CREATININE 5.81 MG/DL (0.60-1.10); GLUCOSE 92 MG/DL (70-104); POTASSIUM 4.7 MMOL/L (3.5-5.1); SODIUM 137 MMOL/L (135-145); TOTAL CARBON DIOXIDE 31.7 MMOL/L (24-32); TOTAL PROTEIN 5.9 G/DL (6.4-8.2); eCRCL 11 ML/MIN; eGFR 10 ML/MIN
[2023-12-13] MEDS ORDERED: vancomycin/NS 1 GM ADD-VANTAGE 250 ML X 1 DOSE IV ONE ×2 (08:35→12:15)
[2023-12-13] MEDS ORDERED: piperacillin/tazo 3.375gm/50ml 50 ML IV ONE (10:00)
[2023-12-13] MEDS ORDERED: normal saline 1000ML IV soln IVB ONE ×2 (10:10)
[2023-12-13 10:40] LABS: ANISOCYTOSIS 3+; PLATELET ESTIMATE NORMAL; STOMATOCYTES 1+; TARGET CELLS FEW
[2023-12-13] MEDS ORDERED: potassium Cl 20 mEq SR tablet PO PRN ×2 (10:45)
[2023-12-13] MEDS ORDERED: magnesium hydroxide 30ml (MOM) UD suspension PO PRN (10:45)
[2023-12-13] MEDS ORDERED: magnesium 4gm in 100ml NS 100 ML IV PRN (10:45)
[2023-12-13] MEDS ORDERED: magnesium Cl slow-release 64mg tablet PO PRN (10:45)
[2023-12-13] MEDS ORDERED: ondansetron/PF 4mg/2ml inj IV PRN (10:45)
[2023-12-13] MEDS ORDERED: potassium Cl 40MEQ/1/2NS 520ml 520 ML IV PRN (10:45)
[2023-12-13] MEDS ORDERED: oxyCODONE/APAP 10/325mg tablet PO ONE (10:55)
[2023-12-13] MEDS ORDERED: NORepinephrine 8mg/ 250ml NS 250 ML IV SCH (11:10)
[2023-12-13] MEDS: normal saline 1000ml 1,000 ML IV SCH (13:35)
[2023-12-13] MEDS ORDERED: NORepinephrine 8mg/ 250ml NS 250 ML IV PRN (14:09)
[2023-12-13] MEDS ORDERED: normal saline 1000ml 1,000 ML IV ONE (15:10)
[2023-12-13] MEDS: piperacillin/tazo 4.5gm/100ml 100 ML IV SCH (16:27)
[2023-12-13] MEDS ORDERED: vancomycin/NS 1 GM ADD-VANTAGE 250 ML IV PRN (16:30)
[2023-12-13] MEDS: midodrine 5mg tablet PO SCH (17:50)
[2023-12-13] MEDS: acetaminophen 325mg tablet PO PRN (18:14)
[2023-12-13 20:00] VITALS: BP 95/49; PULSE 73; RESP 12; O2SAT 92
[2023-12-13] MEDS: heparin, porcine 5000 units/ml vial SQ SCH (20:00)
[2023-12-13] MEDS: docusate sod 100mg capsule PO SCH (20:00)
[2023-12-13 21:00] VITALS: BP 99/42; PULSE 111; RESP 16; O2SAT 91
[2023-12-13 22:00] VITALS: BP 119/64; PULSE 99; RESP 28; O2SAT 93
[2023-12-13 23:00] VITALS: BP 107/50; PULSE 104; RESP 21; O2SAT 93
[2023-12-14] VITALS (28 sets, daily range): BP systolic 99–155; BP diastolic 48–84; PULSE 74–105; RESP 12–31; TEMP 97.7–99.3; O2SAT 91–100
[2023-12-14] MEDS ORDERED: heparin 1,000unit/ml 10ml vial 10 ML IV ONE (05:20)
[2023-12-14] MEDS ORDERED: normal saline 1000ml 250 ML IV PRN (05:20)
[2023-12-14] MEDS ORDERED: EPOETIN ALFA-EPBX 20,000 UNIT/ML 1 ML MDV IV ONE (05:20)
[2023-12-14] MEDS ORDERED: heparin 1,000 units/ml 10ml inj HE ONE ×2 (05:25)
[2023-12-14] MEDS: VANCOMYCIN LEVEL IV SCH (07:30)
[2023-12-14] MEDS ORDERED: albuterol 2.5 MG/3 ML nebule NEB PRN (07:30)
[2023-12-14] MEDS: heparin, porcine 5000 units/ml vial SQ SCH ×2 (08:00→20:23)
[2023-12-14] MEDS: piperacillin/tazo 4.5gm/100ml 100 ML IV SCH ×3 (08:00→19:00)
[2023-12-14] MEDS ORDERED: ipratropium/albuterol 3ml nebule NEB SCH (08:00)
[2023-12-14 08:04] LABS: BASOPHILS % (AUTO) 0.1 % (0-1); EOSINOPHILS % (AUTO) 0.2 % (0-6); LYMPHOCYTES # (AUTO) 0.7 X10'3 (1.1-4.8); LYMPHOCYTES % (AUTO) 7.5 % (21-51); MEAN CORPUSCULAR HEMOGLOBIN 26.6 PG (27.0-31.0); MEAN CORPUSCULAR HGB CONC 31.4 g/dL (33.0-36.5); MEAN CORPUSCULAR VOLUME 84.7 FL (78-98); MEAN PLATELET VOLUME 6.4 FL (7.4-10.4); MONOCYTES # (AUTO) 1.4 X10'3 (0-0.9); NEUTROPHILS # (AUTO) 7.7 X10'3 (1.8-7.7); NEUTROPHILS % (AUTO) 78.2 % (42-75); PLATELET COUNT 215 X10'3 (140-440); RED CELL DISTRIBUTION WIDTH 20.2 % (11.5-14.5); WHITE BLOOD COUNT 9.8 X10'3 (4.5-11.0)
[2023-12-14 08:13] LABS: HEMATOCRIT 21.1 % (42.0-52.0); HEMOGLOBIN 6.6 g/dl (14.0-17.9)
[2023-12-14 08:21] LABS: ALANINE AMINOTRANSFERASE 8 U/L (12-78); ALBUMIN 1.2 G/DL (3.4-5.0); ALBUMIN/GLOBULIN RATIO 0.3 (1.1-1.5); ALKALINE PHOSPHATASE 84 IU/L (46-116); ANION GAP 9 (8-16); ASPARTATE AMINO TRANSFERASE 12 U/L (10-37); BILIRUBIN,TOTAL 0.3 MG/DL (0.1-1.0); BLOOD UREA NITROGEN 45 MG/DL (7-18); BUN/CREATININE RATIO 6.7 (10.0-20.0); CALCIUM 7.8 MG/DL (8.5-10.1); CHLORIDE 99 MMOL/L (99-107); CREATININE 6.71 MG/DL (0.60-1.10); GLUCOSE 88 MG/DL (70-104); POTASSIUM 4.5 MMOL/L (3.5-5.1); SODIUM 135 MMOL/L (135-145); TOTAL CARBON DIOXIDE 27.5 MMOL/L (24-32); TOTAL PROTEIN 5.2 G/DL (6.4-8.2); VANCOMYCIN,RANDOM 21.3 ug/mL (20.0-30.0); eCRCL 10 ML/MIN; eGFR 8 ML/MIN
[2023-12-14] MEDS: ipratropium/albuterol 3ml nebule NEB SCH ×3 (09:28→21:00)
[2023-12-14 10:23] LABS: INR 1.6 INR; PROTHROMBIN TIME 16.6 SECONDS (9.0-12.0)
[2023-12-14] MEDS: midodrine 5mg tablet PO SCH ×3 (12:44→17:16)
[2023-12-14] MEDS: pantoprazole 40mg Tablet.DR PO SCH (12:45)
[2023-12-14] MEDS: duloxetine 30mg CAPSULE.DR PO SCH (12:45)
[2023-12-14] MEDS: acetaminophen 325mg tablet PO PRN (12:45)
[2023-12-14] MEDS: docusate sod 100mg capsule PO SCH ×2 (12:45→20:22)
[2023-12-14] MEDS: tamsulosin 0.4mg capsule PO SCH (12:45)
[2023-12-14] MEDS: carvedilol 6.25mg tablet PO SCH ×2 (12:46→20:00)
[2023-12-14] MEDS ORDERED: piperacillin/tazo 4.5gm/100ml 100 ML IV SCH (13:56)
[2023-12-14] MEDS: cholecalciferol (vitamin D3) 1,000 unit (25mcg) tablet PO SCH (20:27)
[2023-12-14] MEDS: gabapentin 100mg capsule PO SCH (20:27)
[2023-12-15] VITALS (14 sets, daily range): BP systolic 82–109; BP diastolic 51–62; PULSE 78–108; RESP 14–22; TEMP 97.5–99.1; O2SAT 90–98
[2023-12-15] MEDS: ipratropium/albuterol 3ml nebule NEB SCH ×4 (02:34→20:06)
[2023-12-15] MEDS: VANCOMYCIN LEVEL IV SCH (03:12)
[2023-12-15 03:33] LABS: BASOPHILS % (AUTO) 0.4 % (0-1); EOSINOPHILS # (AUTO) 0.1 X10'3 (0-0.9); EOSINOPHILS % (AUTO) 0.6 % (0-6); LYMPHOCYTES # (AUTO) 0.9 X10'3 (1.1-4.8); MEAN CORPUSCULAR HEMOGLOBIN 26.7 PG (27.0-31.0); NEUTROPHILS # (AUTO) 6.8 X10'3 (1.8-7.7)
[2023-12-15 03:35] LABS: HEMATOCRIT 24.4 % (42.0-52.0); HEMOGLOBIN 7.7 g/dl (14.0-17.9); LYMPHOCYTES % (AUTO) 9.9 % (21-51); MEAN CORPUSCULAR HGB CONC 31.7 g/dL (33.0-36.5); MEAN CORPUSCULAR VOLUME 84.2 FL (78-98); MEAN PLATELET VOLUME 6.8 FL (7.4-10.4); MONOCYTES # (AUTO) 1.4 X10'3 (0-0.9); MONOCYTES % (AUTO) 15.1 % (2-12); PLATELET COUNT 251 X10'3 (140-440); WHITE BLOOD COUNT 9.2 X10'3 (4.5-11.0)
[2023-12-15 04:05] LABS: ALANINE AMINOTRANSFERASE 8 U/L (12-78); ALBUMIN 1.2 G/DL (3.4-5.0); ALBUMIN/GLOBULIN RATIO 0.3 (1.1-1.5); ALKALINE PHOSPHATASE 91 IU/L (46-116); ANION GAP 6 (8-16); ASPARTATE AMINO TRANSFERASE 15 U/L (10-37); BILIRUBIN,TOTAL 0.3 MG/DL (0.1-1.0); BLOOD UREA NITROGEN 26 MG/DL (7-18); BUN/CREATININE RATIO 6.3 (10.0-20.0); CALCIUM 7.9 MG/DL (8.5-10.1); CHLORIDE 100 MMOL/L (99-107); CREATININE 4.12 MG/DL (0.60-1.10); GLUCOSE 86 MG/DL (70-104); POTASSIUM 3.9 MMOL/L (3.5-5.1); SODIUM 136 MMOL/L (135-145); TOTAL CARBON DIOXIDE 30.2 MMOL/L (24-32); TOTAL PROTEIN 5.6 G/DL (6.4-8.2); VANCOMYCIN,RANDOM 15.9 ug/mL (20.0-30.0); eCRCL 16 ML/MIN; eGFR 14 ML/MIN
[2023-12-15 04:34] LABS: TOTAL CELLS COUNTED 100
[2023-12-15 04:37] LABS: ANISOCYTOSIS 2+; HYPOCHROMASIA 1+; PLATELET ESTIMATE NORMAL; POIKILOCYTOSIS 1+
[2023-12-15 04:38] LABS: ELLIPTOCYTES FEW
[2023-12-15 07:26] LABS: PROTHROMBIN TIME 11.1 SECONDS (9.0-12.0)
[2023-12-15 07:56] LABS: % IRON SATURATION 13 % (11-46); IRON 10 UG/DL (53-167); TOTAL IRON BINDING CAPACITY 80 UG/DL (259-388)
[2023-12-15] MEDS: heparin, porcine 5000 units/ml vial SQ SCH ×2 (08:00→20:53)
[2023-12-15] MEDS ORDERED: iron polysaccharide complex 150mg capsule PO SCH (08:00)
[2023-12-15] MEDS: docusate sod 100mg capsule PO SCH ×2 (08:00→20:00)
[2023-12-15] MEDS: carvedilol 6.25mg tablet PO SCH ×2 (08:00→20:00)
[2023-12-15] MEDS ORDERED: vancomycin inj 500 MG in normal saline 100ml IV soln 100 ML IV SCH (09:00)
[2023-12-15] MEDS ORDERED: iron sucrose complex injection 100 MG in normal saline 100ml IV soln 95 ML IV SCH (09:40)
[2023-12-15] MEDS: multivitamins, therapeutics tablet PO SCH (10:06)
[2023-12-15] MEDS: duloxetine 30mg CAPSULE.DR PO SCH (10:07)
[2023-12-15] MEDS: tamsulosin 0.4mg capsule PO SCH (10:07)
[2023-12-15] MEDS: folic acid/vitamin B complex w/vitamin C 0.8mg tablet PO SCH (10:08)
[2023-12-15] MEDS: pantoprazole 40mg Tablet.DR PO SCH (10:08)
[2023-12-15] MEDS: piperacillin/tazo 4.5gm/100ml 100 ML IV SCH (10:08)
[2023-12-15] MEDS: midodrine 5mg tablet PO SCH ×3 (10:08→15:59)
[2023-12-15] MEDS: normal saline 1000ml 1,000 ML IV SCH (10:45)
[2023-12-15] MEDS: oxyCODONE/APAP 10/325mg tablet PO PRN ×2 (13:58→20:58)
[2023-12-15] MEDS: MEROPENEM 1GM/NS 100ML IVPB 100 ML IV SCH (15:58)
[2023-12-15] MEDS: gabapentin 100mg capsule PO SCH (20:54)
[2023-12-15] MEDS: cholecalciferol (vitamin D3) 1,000 unit (25mcg) tablet PO SCH (20:54)
[2023-12-16] VITALS (12 sets, daily range): BP systolic 92–105; BP diastolic 51–64; PULSE 82–115; RESP 13–23; TEMP 97.1–99.5; O2SAT 86–96
[2023-12-16] MEDS: ipratropium/albuterol 3ml nebule NEB SCH ×4 (02:46→20:59)
[2023-12-16] MEDS: MEROPENEM 1GM/NS 100ML IVPB 100 ML IV SCH (03:49)
[2023-12-16] MEDS: oxyCODONE/APAP 10/325mg tablet PO PRN ×3 (04:38→21:41)
[2023-12-16 06:38] LABS: PROTHROMBIN TIME 11.1 SECONDS (9.0-12.0)
[2023-12-16 06:53] LABS: ALANINE AMINOTRANSFERASE 13 U/L (12-78); ALBUMIN 1.1 G/DL (3.4-5.0); ALBUMIN/GLOBULIN RATIO 0.3 (1.1-1.5); ALKALINE PHOSPHATASE 89 IU/L (46-116); ANION GAP 8 (8-16); ASPARTATE AMINO TRANSFERASE 20 U/L (10-37); BILIRUBIN,TOTAL 0.4 MG/DL (0.1-1.0); BLOOD UREA NITROGEN 35 MG/DL (7-18); BUN/CREATININE RATIO 6.5 (10.0-20.0); CALCIUM 7.9 MG/DL (8.5-10.1); CHLORIDE 98 MMOL/L (99-107); GLUCOSE 85 MG/DL (70-104); POTASSIUM 3.6 MMOL/L (3.5-5.1); SODIUM 134 MMOL/L (135-145); TOTAL CARBON DIOXIDE 27.6 MMOL/L (24-32); TOTAL PROTEIN 5.4 G/DL (6.4-8.2); eCRCL 12 ML/MIN; eGFR 11 ML/MIN
[2023-12-16 06:54] LABS: BASOPHILS % (AUTO) 0.4 % (0-1); EOSINOPHILS # (AUTO) 0.1 X10'3 (0-0.9); EOSINOPHILS % (AUTO) 1.3 % (0-6); HEMATOCRIT 23.5 % (42.0-52.0); HEMOGLOBIN 7.5 g/dl (14.0-17.9); LYMPHOCYTES # (AUTO) 0.9 X10'3 (1.1-4.8); LYMPHOCYTES % (AUTO) 10.3 % (21-51); MEAN CORPUSCULAR HEMOGLOBIN 26.9 PG (27.0-31.0); MEAN CORPUSCULAR HGB CONC 31.8 g/dL (33.0-36.5); MEAN CORPUSCULAR VOLUME 84.8 FL (78-98); MEAN PLATELET VOLUME 6.8 FL (7.4-10.4); MONOCYTES # (AUTO) 1.3 X10'3 (0-0.9); MONOCYTES % (AUTO) 14.6 % (2-12); NEUTROPHILS # (AUTO) 6.3 X10'3 (1.8-7.7); NEUTROPHILS % (AUTO) 73.4 % (42-75); PLATELET COUNT 265 X10'3 (140-440); RED BLOOD COUNT 2.77 X10'6 (4.70-6.10); RED CELL DISTRIBUTION WIDTH 18.9 % (11.5-14.5); WHITE BLOOD COUNT 8.6 X10'3 (4.5-11.0)
[2023-12-16 07:24] LABS: ANISOCYTOSIS 2+; HYPOCHROMASIA 1+; PLATELET ESTIMATE NORMAL; POLYCHROMASIA FEW; TEAR DROP CELLS 1+
[2023-12-16 07:25] LABS: ELLIPTOCYTES FEW; STOMATOCYTES FEW
[2023-12-16] MEDS: folic acid/vitamin B complex w/vitamin C 0.8mg tablet PO SCH ×2 (08:00→11:35)
[2023-12-16] MEDS: midodrine 5mg tablet PO SCH ×3 (08:00→15:46)
[2023-12-16] MEDS: carvedilol 6.25mg tablet PO SCH ×2 (08:00→19:38)
[2023-12-16] MEDS: docusate sod 100mg capsule PO SCH ×2 (08:00→19:39)
[2023-12-16] MEDS ORDERED: MEROPENEM 1GM/NS 100ML IVPB 100 ML IV SCH (09:45)
[2023-12-16 10:30] LABS: OCCULT BLOOD STOOL NEGATIVE (Neg)
[2023-12-16] MEDS: iron sucrose complex injection 100 MG in normal saline 100ml IV soln 100 ML IV SCH (11:29)
[2023-12-16] MEDS: tamsulosin 0.4mg capsule PO SCH (11:35)
[2023-12-16] MEDS: duloxetine 30mg CAPSULE.DR PO SCH (11:35)
[2023-12-16] MEDS: pantoprazole 40mg Tablet.DR PO SCH (11:36)
[2023-12-16] MEDS: multivitamins, therapeutics tablet PO SCH (11:36)
[2023-12-16] MEDS: heparin, porcine 5000 units/ml vial SQ SCH ×2 (11:38→19:39)
[2023-12-16] MEDS: cholecalciferol (vitamin D3) 1,000 unit (25mcg) tablet PO SCH (20:03)
[2023-12-16] MEDS: gabapentin 100mg capsule PO SCH (20:04)
[2023-12-17] VITALS (22 sets, daily range): BP systolic 100–138; BP diastolic 49–87; PULSE 73–107; RESP 14–22; TEMP 98.1–99.7; O2SAT 93–99
[2023-12-17] MEDS: ipratropium/albuterol 3ml nebule NEB SCH ×4 (02:55→21:00)
[2023-12-17] MEDS: oxyCODONE/APAP 10/325mg tablet PO PRN ×3 (03:49→21:58)
[2023-12-17] MEDS ORDERED: heparin 1,000unit/ml 10ml vial 10 ML IV ONE (07:30)
[2023-12-17] MEDS ORDERED: normal saline 1000ml 250 ML IV PRN (07:30)
[2023-12-17] MEDS ORDERED: EPOETIN ALFA-EPBX 20,000 UNIT/ML 1 ML MDV IV ONE (07:30)
[2023-12-17] MEDS ORDERED: heparin 1,000 units/ml 10ml inj HE ONE ×2 (07:35)
[2023-12-17 07:44] LABS: BASOPHILS % (AUTO) 0.5 % (0-1); EOSINOPHILS # (AUTO) 0.1 X10'3 (0-0.9); EOSINOPHILS % (AUTO) 1.4 % (0-6); HEMATOCRIT 24.1 % (42.0-52.0); HEMOGLOBIN 7.5 g/dl (14.0-17.9); MEAN CORPUSCULAR HEMOGLOBIN 26.3 PG (27.0-31.0); MEAN CORPUSCULAR HGB CONC 31.1 g/dL (33.0-36.5); MEAN CORPUSCULAR VOLUME 84.6 FL (78-98); MEAN PLATELET VOLUME 6.7 FL (7.4-10.4); MONOCYTES # (AUTO) 1.2 X10'3 (0-0.9); MONOCYTES % (AUTO) 14.1 % (2-12); NEUTROPHILS # (AUTO) 6.3 X10'3 (1.8-7.7); PLATELET COUNT 304 X10'3 (140-440); RED BLOOD COUNT 2.85 X10'6 (4.70-6.10); RED CELL DISTRIBUTION WIDTH 18.9 % (11.5-14.5); WHITE BLOOD COUNT 8.7 X10'3 (4.5-11.0)
[2023-12-17] MEDS: iron sucrose complex injection 100 MG in normal saline 100ml IV soln 100 ML IV SCH ×2 (08:00→16:30)
[2023-12-17] MEDS: tamsulosin 0.4mg capsule PO SCH (08:00)
[2023-12-17] MEDS: docusate sod 100mg capsule PO SCH ×2 (08:00→19:39)
[2023-12-17] MEDS: heparin, porcine 5000 units/ml vial SQ SCH ×2 (08:00→19:39)
[2023-12-17] MEDS: carvedilol 6.25mg tablet PO SCH ×2 (08:00→19:39)
[2023-12-17 08:02] LABS: ALANINE AMINOTRANSFERASE 15 U/L (12-78); ALBUMIN 1.1 G/DL (3.4-5.0); ALBUMIN/GLOBULIN RATIO 0.2 (1.1-1.5); ALKALINE PHOSPHATASE 100 IU/L (46-116); ANION GAP 8 (8-16); ASPARTATE AMINO TRANSFERASE 24 U/L (10-37); BILIRUBIN,TOTAL 0.3 MG/DL (0.1-1.0); BLOOD UREA NITROGEN 42 MG/DL (7-18); BUN/CREATININE RATIO 6.4 (10.0-20.0); CHLORIDE 97 MMOL/L (99-107); CREATININE 6.55 MG/DL (0.60-1.10); GLUCOSE 116 MG/DL (70-104); POTASSIUM 3.6 MMOL/L (3.5-5.1); SODIUM 132 MMOL/L (135-145); TOTAL CARBON DIOXIDE 26.8 MMOL/L (24-32); TOTAL PROTEIN 5.6 G/DL (6.4-8.2); eCRCL 10 ML/MIN; eGFR 8 ML/MIN
[2023-12-17] MEDS: pantoprazole 40mg Tablet.DR PO SCH (09:35)
[2023-12-17] MEDS: multivitamins, therapeutics tablet PO SCH (09:35)
[2023-12-17] MEDS: midodrine 5mg tablet PO SCH ×3 (09:35→16:48)
[2023-12-17] MEDS: duloxetine 30mg CAPSULE.DR PO SCH (09:36)
[2023-12-17] MEDS: normal saline 1000ml 1,000 ML IV SCH (10:45)
[2023-12-17] MEDS: MEROPENEM 1GM/NS 100ML IVPB 100 ML IV SCH (14:33)
[2023-12-17] MEDS: NUT.TX.IMP.RENAL FXN,LAC-REDUC (Nepro) 237 ML VANILLA PO SCH (17:30)
[2023-12-17 19:15] LABS: OCCULT BLOOD STOOL NEGATIVE (Neg)
[2023-12-17] MEDS: cholecalciferol (vitamin D3) 1,000 unit (25mcg) tablet PO SCH (20:02)
[2023-12-17] MEDS: gabapentin 100mg capsule PO SCH (20:03)
[2023-12-18] VITALS (12 sets, daily range): BP systolic 96–124; BP diastolic 44–79; PULSE 83–104; RESP 11–22; TEMP 98.3–100.6; O2SAT 90–96
[2023-12-18] MEDS: ipratropium/albuterol 3ml nebule NEB SCH ×4 (02:53→20:18)
[2023-12-18] MEDS: NUT.TX.IMP.RENAL FXN,LAC-REDUC (Nepro) 237 ML VANILLA PO SCH ×2 (07:30→17:30)
[2023-12-18 07:41] LABS: BASOPHILS % (AUTO) 0.4 % (0-1); EOSINOPHILS # (AUTO) 0.2 X10'3 (0-0.9); EOSINOPHILS % (AUTO) 1.5 % (0-6); HEMATOCRIT 24.1 % (42.0-52.0); HEMOGLOBIN 7.6 g/dl (14.0-17.9); LYMPHOCYTES # (AUTO) 1.1 X10'3 (1.1-4.8); LYMPHOCYTES % (AUTO) 10.6 % (21-51); MEAN CORPUSCULAR HEMOGLOBIN 26.6 PG (27.0-31.0); MEAN CORPUSCULAR HGB CONC 31.6 g/dL (33.0-36.5); MEAN CORPUSCULAR VOLUME 84.4 FL (78-98); MEAN PLATELET VOLUME 6.6 FL (7.4-10.4); MONOCYTES # (AUTO) 1.3 X10'3 (0-0.9); MONOCYTES % (AUTO) 12.5 % (2-12); NEUTROPHILS # (AUTO) 7.7 X10'3 (1.8-7.7); PLATELET COUNT 347 X10'3 (140-440); RED BLOOD COUNT 2.86 X10'6 (4.70-6.10); WHITE BLOOD COUNT 10.3 X10'3 (4.5-11.0)
[2023-12-18 07:56] LABS: PROTHROMBIN TIME 10.9 SECONDS (9.0-12.0)
[2023-12-18] MEDS: acetaminophen 325mg tablet PO PRN (07:58)
[2023-12-18] MEDS: carvedilol 6.25mg tablet PO SCH ×2 (07:59→19:45)
[2023-12-18] MEDS: midodrine 5mg tablet PO SCH ×3 (07:59→15:52)
[2023-12-18] MEDS: folic acid/vitamin B complex w/vitamin C 0.8mg tablet PO SCH (07:59)
[2023-12-18] MEDS: pantoprazole 40mg Tablet.DR PO SCH (07:59)
[2023-12-18] MEDS: tamsulosin 0.4mg capsule PO SCH (07:59)
[2023-12-18] MEDS: duloxetine 30mg CAPSULE.DR PO SCH (07:59)
[2023-12-18] MEDS: docusate sod 100mg capsule PO SCH ×3 (07:59→19:46)
[2023-12-18] MEDS: multivitamins, therapeutics tablet PO SCH (07:59)
[2023-12-18] MEDS: heparin, porcine 5000 units/ml vial SQ SCH ×2 (08:01→19:45)
[2023-12-18 08:20] LABS: ALANINE AMINOTRANSFERASE 15 U/L (12-78); ALBUMIN 1.2 G/DL (3.4-5.0); ALBUMIN/GLOBULIN RATIO 0.3 (1.1-1.5); ALKALINE PHOSPHATASE 104 IU/L (46-116); ANION GAP 7 (8-16); ASPARTATE AMINO TRANSFERASE 18 U/L (10-37); BILIRUBIN,TOTAL 0.3 MG/DL (0.1-1.0); BLOOD UREA NITROGEN 23 MG/DL (7-18); BUN/CREATININE RATIO 5.4 (10.0-20.0); CALCIUM 8.2 MG/DL (8.5-10.1); CHLORIDE 98 MMOL/L (99-107); CREATININE 4.27 MG/DL (0.60-1.10); GLUCOSE 85 MG/DL (70-104); POTASSIUM 3.9 MMOL/L (3.5-5.1); SODIUM 133 MMOL/L (135-145); TOTAL CARBON DIOXIDE 27.6 MMOL/L (24-32); TOTAL PROTEIN 5.7 G/DL (6.4-8.2); eCRCL 16 ML/MIN; eGFR 14 ML/MIN
[2023-12-18] MEDS ORDERED: VANCOMYCIN LEVEL IV ONE (08:30)
[2023-12-18 09:24] LABS: HBSAG SCREEN Negative (Negative)
[2023-12-18] MEDS: iron sucrose complex injection 100 MG in normal saline 100ml IV soln 100 ML IV SCH (10:35)
[2023-12-18] MEDS: oxyCODONE/APAP 10/325mg tablet PO PRN ×2 (11:42→19:46)
[2023-12-18] MEDS: MEROPENEM 1GM/NS 100ML IVPB 100 ML IV SCH (13:13)
[2023-12-18] MEDS: gabapentin 100mg capsule PO SCH (20:53)
[2023-12-18] MEDS: cholecalciferol (vitamin D3) 1,000 unit (25mcg) tablet PO SCH (20:53)
[2023-12-19] VITALS (19 sets, daily range): BP systolic 89–133; BP diastolic 49–79; PULSE 68–98; RESP 16–22; TEMP 97.9–99.8; O2SAT 92–97
[2023-12-19] MEDS: ipratropium/albuterol 3ml nebule NEB SCH ×4 (03:00→20:28)
[2023-12-19] MEDS: NUT.TX.IMP.RENAL FXN,LAC-REDUC (Nepro) 237 ML VANILLA PO SCH ×2 (07:30→17:30)
[2023-12-19] MEDS ORDERED: heparin 1,000unit/ml 10ml vial 10 ML IV ONE (07:35)
[2023-12-19] MEDS ORDERED: normal saline 1000ml 250 ML IV PRN (07:35)
[2023-12-19] MEDS ORDERED: EPOETIN ALFA-EPBX 20,000 UNIT/ML 1 ML MDV IV ONE (07:35)
[2023-12-19] MEDS ORDERED: heparin 1,000 units/ml 10ml inj HE ONE ×2 (07:40)
[2023-12-19] MEDS: carvedilol 6.25mg tablet PO SCH ×2 (08:00→20:11)
[2023-12-19] MEDS: docusate sod 100mg capsule PO SCH ×2 (08:00→20:00)
[2023-12-19] MEDS: tamsulosin 0.4mg capsule PO SCH (09:05)
[2023-12-19] MEDS: duloxetine 30mg CAPSULE.DR PO SCH (09:10)
[2023-12-19] MEDS: folic acid/vitamin B complex w/vitamin C 0.8mg tablet PO SCH (09:10)
[2023-12-19] MEDS: multivitamins, therapeutics tablet PO SCH (09:11)
[2023-12-19] MEDS: oxyCODONE/APAP 10/325mg tablet PO PRN ×2 (09:11→20:22)
[2023-12-19] MEDS: heparin, porcine 5000 units/ml vial SQ SCH ×2 (09:12→20:11)
[2023-12-19] MEDS: midodrine 5mg tablet PO SCH ×3 (09:13→16:00)
[2023-12-19] MEDS: pantoprazole 40mg Tablet.DR PO SCH (09:22)
[2023-12-19] MEDS: iron sucrose complex injection 100 MG in normal saline 100ml IV soln 100 ML IV SCH (09:22)
[2023-12-19] MEDS: normal saline 1000ml 1,000 ML IV SCH (10:45)
[2023-12-19] MEDS: MEROPENEM 1GM/NS 100ML IVPB 100 ML IV SCH (17:42)
[2023-12-19] MEDS: cholecalciferol (vitamin D3) 1,000 unit (25mcg) tablet PO SCH (20:11)
[2023-12-19] MEDS: gabapentin 100mg capsule PO SCH (20:11)
[2023-12-19 23:57] LABS: BASOPHILS # (AUTO) 0.1 X10'3 (0-0.2); BASOPHILS % (AUTO) 1.4 % (0-1); EOSINOPHILS # (AUTO) 0.1 X10'3 (0-0.9); HEMATOCRIT 23.5 % (42.0-52.0); HEMOGLOBIN 7.6 g/dl (14.0-17.9); LYMPHOCYTES # (AUTO) 0.7 X10'3 (1.1-4.8); LYMPHOCYTES % (AUTO) 10.2 % (21-51); MEAN CORPUSCULAR HEMOGLOBIN 27.4 PG (27.0-31.0); MEAN CORPUSCULAR HGB CONC 32.4 g/dL (33.0-36.5); MEAN CORPUSCULAR VOLUME 84.7 FL (78-98); MEAN PLATELET VOLUME 6.9 FL (7.4-10.4); MONOCYTES # (AUTO) 1.2 X10'3 (0-0.9); MONOCYTES % (AUTO) 16.8 % (2-12); NEUTROPHILS % (AUTO) 70.6 % (42-75); PLATELET COUNT 371 X10'3 (140-440); RED BLOOD COUNT 2.77 X10'6 (4.70-6.10); RED CELL DISTRIBUTION WIDTH 18.8 % (11.5-14.5); WHITE BLOOD COUNT 7.1 X10'3 (4.5-11.0)
[2023-12-20] VITALS (11 sets, daily range): BP systolic 100–113; BP diastolic 48–63; PULSE 70–94; RESP 12–18; TEMP 97.8–99.3; O2SAT 95–98
[2023-12-20 00:12] LABS: ALANINE AMINOTRANSFERASE 24 U/L (12-78); ALBUMIN 1.3 G/DL (3.4-5.0); ALBUMIN/GLOBULIN RATIO 0.4 (1.1-1.5); ALKALINE PHOSPHATASE 117 IU/L (46-116); ANION GAP 6 (8-16); ASPARTATE AMINO TRANSFERASE 32 U/L (10-37); BILIRUBIN,TOTAL 0.2 MG/DL (0.1-1.0); BLOOD UREA NITROGEN 14 MG/DL (7-18); BUN/CREATININE RATIO 4.6 (10.0-20.0); CALCIUM 7.4 MG/DL (8.5-10.1); CHLORIDE 102 MMOL/L (99-107); CREATININE 3.02 MG/DL (0.60-1.10); GLUCOSE 126 MG/DL (70-104); POTASSIUM 3.9 MMOL/L (3.5-5.1); SODIUM 137 MMOL/L (135-145); TOTAL CARBON DIOXIDE 28.6 MMOL/L (24-32); eCRCL 22 ML/MIN; eGFR 21 ML/MIN
[2023-12-20] MEDS: ipratropium/albuterol 3ml nebule NEB SCH ×4 (02:36→21:01)
[2023-12-20] MEDS: NUT.TX.IMP.RENAL FXN,LAC-REDUC (Nepro) 237 ML VANILLA PO SCH ×2 (07:30→17:30)
[2023-12-20] MEDS: docusate sod 100mg capsule PO SCH ×2 (08:00→20:00)
[2023-12-20] MEDS: multivitamins, therapeutics tablet PO SCH (08:09)
[2023-12-20] MEDS: pantoprazole 40mg Tablet.DR PO SCH (08:09)
[2023-12-20] MEDS: iron sucrose complex injection 100 MG in normal saline 100ml IV soln 100 ML IV SCH (08:09)
[2023-12-20] MEDS: carvedilol 6.25mg tablet PO SCH ×2 (08:10→20:22)
[2023-12-20] MEDS: midodrine 5mg tablet PO SCH ×3 (08:10→16:00)
[2023-12-20] MEDS: folic acid/vitamin B complex w/vitamin C 0.8mg tablet PO SCH (08:10)
[2023-12-20] MEDS: duloxetine 30mg CAPSULE.DR PO SCH (08:10)
[2023-12-20] MEDS: tamsulosin 0.4mg capsule PO SCH (08:10)
[2023-12-20] MEDS: heparin, porcine 5000 units/ml vial SQ SCH ×2 (08:11→20:23)
[2023-12-20] MEDS: methyl salicylate/menthol cream 57gm TP SCH ×2 (13:00→20:24)
[2023-12-20] MEDS: MEROPENEM 1GM/NS 100ML IVPB 100 ML IV SCH (14:00)
[2023-12-20] MEDS: diazepam 5mg tablet PO PRN ×2 (14:01→20:22)
[2023-12-20] MEDS: oxyCODONE/APAP 10/325mg tablet PO PRN (20:22)
[2023-12-20] MEDS: cholecalciferol (vitamin D3) 1,000 unit (25mcg) tablet PO SCH (20:22)
[2023-12-20] MEDS: gabapentin 100mg capsule PO SCH (20:22)
[2023-12-21] VITALS (19 sets, daily range): BP systolic 95–121; BP diastolic 52–72; PULSE 68–105; RESP 16–20; TEMP 98–99.9; O2SAT 94–99
[2023-12-21] MEDS: ipratropium/albuterol 3ml nebule NEB SCH ×4 (03:00→23:00)
[2023-12-21] MEDS ORDERED: EPOETIN ALFA-EPBX 20,000 UNIT/ML 1 ML MDV IV ONE (07:05)
[2023-12-21] MEDS ORDERED: normal saline 1000ml 250 ML IV PRN (07:05)
[2023-12-21] MEDS ORDERED: heparin 1,000unit/ml 10ml vial 10 ML IV ONE (07:05)
[2023-12-21] MEDS ORDERED: heparin 1,000 units/ml 10ml inj HE ONE ×2 (07:10)
[2023-12-21] MEDS: NUT.TX.IMP.RENAL FXN,LAC-REDUC (Nepro) 237 ML VANILLA PO SCH ×2 (07:30→18:06)
[2023-12-21 07:41] LABS: HEMATOCRIT 24.9 % (42.0-52.0); HEMOGLOBIN 7.8 g/dl (14.0-17.9); MEAN CORPUSCULAR HEMOGLOBIN 26.9 PG (27.0-31.0); MEAN CORPUSCULAR HGB CONC 31.5 g/dL (33.0-36.5); MEAN CORPUSCULAR VOLUME 85.5 FL (78-98); MEAN PLATELET VOLUME 6.6 FL (7.4-10.4); PLATELET COUNT 408 X10'3 (140-440); RED BLOOD COUNT 2.91 X10'6 (4.70-6.10); RED CELL DISTRIBUTION WIDTH 19.7 % (11.5-14.5); WHITE BLOOD COUNT 6.8 X10'3 (4.5-11.0)
[2023-12-21] MEDS: iron sucrose complex injection 100 MG in normal saline 100ml IV soln 100 ML IV SCH (07:52)
[2023-12-21] MEDS: oxyCODONE/APAP 10/325mg tablet PO PRN ×3 (07:53→20:52)
[2023-12-21] MEDS: tamsulosin 0.4mg capsule PO SCH (07:55)
[2023-12-21] MEDS: multivitamins, therapeutics tablet PO SCH (07:55)
[2023-12-21] MEDS: duloxetine 30mg CAPSULE.DR PO SCH (07:55)
[2023-12-21] MEDS: midodrine 5mg tablet PO SCH ×3 (07:55→17:02)
[2023-12-21] MEDS: pantoprazole 40mg Tablet.DR PO SCH (07:55)
[2023-12-21] MEDS: folic acid/vitamin B complex w/vitamin C 0.8mg tablet PO SCH (07:55)
[2023-12-21] MEDS: heparin, porcine 5000 units/ml vial SQ SCH ×2 (07:56→20:51)
[2023-12-21] MEDS: methyl salicylate/menthol cream 57gm TP SCH ×3 (07:56→20:52)
[2023-12-21] MEDS: carvedilol 6.25mg tablet PO SCH ×2 (08:00→20:51)
[2023-12-21] MEDS: docusate sod 100mg capsule PO SCH ×2 (08:00→19:18)
[2023-12-21] MEDS: normal saline 1000ml 1,000 ML IV SCH (10:45)
[2023-12-21] MEDS: MEROPENEM 1GM/NS 100ML IVPB 100 ML IV SCH (17:02)
[2023-12-21] MEDS: cholecalciferol (vitamin D3) 1,000 unit (25mcg) tablet PO SCH (20:51)
[2023-12-21] MEDS: gabapentin 100mg capsule PO SCH (20:51)
[2023-12-22] VITALS (9 sets, daily range): BP systolic 102–130; BP diastolic 61–71; PULSE 75–101; RESP 16–24; TEMP 98.1–98.6; O2SAT 93–97
[2023-12-22] MEDS: ipratropium/albuterol 3ml nebule NEB SCH ×3 (03:00→15:40)
[2023-12-22] MEDS: NUT.TX.IMP.RENAL FXN,LAC-REDUC (Nepro) 237 ML VANILLA PO SCH (07:30)
[2023-12-22] MEDS: docusate sod 100mg capsule PO SCH (08:00)
[2023-12-22] MEDS: MEROPENEM 1GM/NS 100ML IVPB 100 ML IV SCH (09:44)
[2023-12-22] MEDS: folic acid/vitamin B complex w/vitamin C 0.8mg tablet PO SCH (09:50)
[2023-12-22] MEDS: midodrine 5mg tablet PO SCH ×3 (09:50→17:18)
[2023-12-22] MEDS: tamsulosin 0.4mg capsule PO SCH (09:51)
[2023-12-22] MEDS: pantoprazole 40mg Tablet.DR PO SCH (09:51)
[2023-12-22] MEDS: duloxetine 30mg CAPSULE.DR PO SCH (09:51)
[2023-12-22] MEDS: multivitamins, therapeutics tablet PO SCH (09:52)
[2023-12-22] MEDS: carvedilol 6.25mg tablet PO SCH (09:52)
[2023-12-22] MEDS: heparin, porcine 5000 units/ml vial SQ SCH (09:54)
[2023-12-22] MEDS: iron sucrose complex injection 100 MG in normal saline 100ml IV soln 100 ML IV SCH (09:55)
[2023-12-22] MEDS: methyl salicylate/menthol cream 57gm TP SCH ×2 (09:55→13:03)
[2023-12-22] MEDS: oxyCODONE/APAP 10/325mg tablet PO PRN (11:33)
== END 2023-12-22 18:04 | disposition home health service (06) | DRG 871 ==
LOC: ER 06:32 → ED HOLD 11:45 → UNDOADMIN 11:45 → ED HOLD 14:39 → CICU 2S 19:21 → PCU 3S 12-14 14:28
PROVIDERS: ADMIT Internal Medicine Critical Care Medicine; ATTEND Internal Medicine Critical Care Medicine
PROC: 02HV33Z Insertion of Infusion Device into Superior Vena Cava, Percutaneous Approach (ICD-10-PCS; principal; 2023-12-13)
PROC: 5A1D70Z Performance of Urinary Filtration, Intermittent, Less than 6 Hours Per Day (ICD-10-PCS; 2023-12-14)
PROC: 30233N1 Transfusion of Nonautologous Red Blood Cells into Peripheral Vein, Percutaneous Approach (ICD-10-PCS; 2023-12-14)
PROC: 5A1D70Z Performance of Urinary Filtration, Intermittent, Less than 6 Hours Per Day (ICD-10-PCS; 2023-12-17)
PROC: 5A1D70Z Performance of Urinary Filtration, Intermittent, Less than 6 Hours Per Day (ICD-10-PCS; 2023-12-19)
PROC: 5A1D70Z Performance of Urinary Filtration, Intermittent, Less than 6 Hours Per Day (ICD-10-PCS; 2023-12-21)
DX: A41.59 Other Gram-negative sepsis (principal); N18.6 End stage renal disease; R65.21 Severe sepsis with septic shock; N39.0 Urinary tract infection, site not specified; I13.2 Hypertensive heart and chronic kidney disease with heart failure and with stage 5 chronic kidney disease, or end stage renal disease; Z16.24 Resistance to multiple antibiotics; N12 Tubulo-interstitial nephritis, not specified as acute or chronic; F31.9 Bipolar disorder, unspecified; F17.210 Nicotine dependence, cigarettes, uncomplicated; E11.22 Type 2 diabetes mellitus with diabetic chronic kidney disease; N40.0 Benign prostatic hyperplasia without lower urinary tract symptoms; I50.9 Heart failure, unspecified; J44.9 Chronic obstructive pulmonary disease, unspecified; D63.1 Anemia in chronic kidney disease; I95.9 Hypotension, unspecified; G89.29 Other chronic pain; N20.0 Calculus of kidney; K21.9 Gastro-esophageal reflux disease without esophagitis; M54.9 Dorsalgia, unspecified; Z87.442 Personal history of urinary calculi; Z90.49 Acquired absence of other specified parts of digestive tract; Z79.899 Other long term (current) drug therapy; Z91.030 Bee allergy status; Z99.2 Dependence on renal dialysis; Z86.73 Personal history of transient ischemic attack (TIA), and cerebral infarction without residual deficits; Z91.041 Radiographic dye allergy status; Z82.3 Family history of stroke
CPT/HCPCS: 36415; 36430; 71045; 73610; 74176; 80053; 80202; 81001; 82272; 82607; 82728; 83540; 83550; 83605; 84145; 84484; 85007; 85008; 85025; 85027; 85610; 86885; 86900; 86901; 86920; 87040; 87077; 87081; 87088; 87186; 87340; 93005; 94640; 94760; 97161; 97530; 99285; A4314; A4338; A4340; A4615; A5200; A6212; A6213; A6250; A6258; A6449; C1751; C1758; E1594; G0257; G0378; J0696; J1644; J1756; J2185; J2405; J2543; J3370; J3490; J7030; J7040; P9016; Q4081

== ENCOUNTER 2024-01-26 17:34 | Inpatient (IN) | payer BC, MEDICARE ==
[~2024-01-26] VITALS: Ht 180.3 cm; Wt 115.0 kg
[2024-01-26] MEDS: normal saline 1000ML IV soln IVB ONE (19:41)
[2024-01-26] MEDS: ertapenem sod inj 1 GM in normal saline 100ml IV soln 100 ML IV STA (20:02)
[2024-01-26 20:33] LABS: BASOPHILS % (AUTO) 0.2 % (0-1); EOSINOPHILS % (AUTO) 0 % (0-6); HEMATOCRIT 32.7 % (42.0-52.0); HEMOGLOBIN 10.2 g/dl (14.0-17.9); LYMPHOCYTES # (AUTO) 0.7 X10'3 (1.1-4.8); LYMPHOCYTES % (AUTO) 6.2 % (21-51); MEAN CORPUSCULAR HEMOGLOBIN 27.3 PG (27.0-31.0); MEAN CORPUSCULAR HGB CONC 31.3 g/dL (33.0-36.5); MEAN CORPUSCULAR VOLUME 87.4 FL (78-98); MEAN PLATELET VOLUME 6.4 FL (7.4-10.4); MONOCYTES % (AUTO) 8.9 % (2-12); NEUTROPHILS # (AUTO) 9.5 X10'3 (1.8-7.7); NEUTROPHILS % (AUTO) 84.7 % (42-75); PLATELET COUNT 266 X10'3 (140-440); RED BLOOD COUNT 3.75 X10'6 (4.70-6.10); RED CELL DISTRIBUTION WIDTH 17.8 % (11.5-14.5); WHITE BLOOD COUNT 11.2 X10'3 (4.5-11.0)
[2024-01-26 20:42] LABS: ALANINE AMINOTRANSFERASE 11 U/L (12-78); ALBUMIN 1.9 G/DL (3.4-5.0); ALBUMIN/GLOBULIN RATIO 0.4 (1.1-1.5); ALKALINE PHOSPHATASE 140 IU/L (46-116); ANION GAP 9 (8-16); ASPARTATE AMINO TRANSFERASE 14 U/L (10-37); BILIRUBIN,TOTAL 0.4 MG/DL (0.1-1.0); BLOOD UREA NITROGEN 41 MG/DL (7-18); BUN/CREATININE RATIO 8.7 (10.0-20.0); CALCIUM 8.2 MG/DL (8.5-10.1); CHLORIDE 102 MMOL/L (99-107); CREATININE 4.73 MG/DL (0.60-1.10); GLUCOSE 118 MG/DL (70-104); POTASSIUM 4.4 MMOL/L (3.5-5.1); SODIUM 139 MMOL/L (135-145); TOTAL CARBON DIOXIDE 27.9 MMOL/L (24-32); TOTAL PROTEIN 6.6 G/DL (6.4-8.2); eCRCL 15 ML/MIN; eGFR 12 ML/MIN
[2024-01-26 20:42] LABS: CLARITY,URINE TURBID (Clear); COLOR,URINE YELLOW (Yellow); GLUCOSE, URINE NEGATIVE (Neg); KETONES,URINE NEGATIVE (Neg); NITRITES, URINE NEGATIVE (Neg); OCCULT BLOOD,URINE LARGE (Neg); PROTEIN,URINE 100 mg/dl (Neg); UA COLLECTION TYPE NON-SPECIFIED
[2024-01-26 20:43] LABS: BILIRUBIN,URINE NEGATIVE (Neg); LEUKOCYTE ESTERASE ,URINE MODERATE (Neg); UROBILINOGEN,URINE 0.2 E.U/dL (0.2-1.0)
[2024-01-26 20:45] LABS: SQUAMOUS EPITHELIAL CELL,UR FEW /LPF (FEW)
[2024-01-26 20:46] LABS: BACTERIA,URINE 3+ /HPF (Neg); WBC,URINE TNTC /HPF (0-4)
[2024-01-26] MEDS: acetaminophen 1,000mg/100ml IV 100 ML IV ONE (23:22)
[2024-01-26] MEDS ORDERED: ondansetron/PF 4mg/2ml inj IV PRN (23:55)
[2024-01-26] MEDS ORDERED: mag hydrox/Alum hydrox/simeth 30ml oral suspension PO PRN (23:55)
[2024-01-26] MEDS ORDERED: magnesium hydroxide 30ml (MOM) UD suspension PO PRN (23:55)
[2024-01-27] VITALS (20 sets, daily range): BP systolic 84–143; BP diastolic 41–81; PULSE 76–99; RESP 14–24; TEMP 97.3–103.2; O2SAT 92–100
[2024-01-27 06:49] LABS: BASOPHILS % (AUTO) 0.3 % (0-1); EOSINOPHILS % (AUTO) 0 % (0-6); HEMATOCRIT 29.9 % (42.0-52.0); HEMOGLOBIN 9.3 g/dl (14.0-17.9); LYMPHOCYTES # (AUTO) 0.8 X10'3 (1.1-4.8); LYMPHOCYTES % (AUTO) 4.6 % (21-51); MEAN CORPUSCULAR HEMOGLOBIN 27.6 PG (27.0-31.0); MEAN CORPUSCULAR HGB CONC 31.2 g/dL (33.0-36.5); MEAN CORPUSCULAR VOLUME 88.4 FL (78-98); MEAN PLATELET VOLUME 6.4 FL (7.4-10.4); MONOCYTES # (AUTO) 1.4 X10'3 (0-0.9); MONOCYTES % (AUTO) 8.2 % (2-12); NEUTROPHILS # (AUTO) 15.2 X10'3 (1.8-7.7); NEUTROPHILS % (AUTO) 86.9 % (42-75); PLATELET COUNT 249 X10'3 (140-440); RED BLOOD COUNT 3.38 X10'6 (4.70-6.10); RED CELL DISTRIBUTION WIDTH 17.7 % (11.5-14.5); WHITE BLOOD COUNT 17.5 X10'3 (4.5-11.0)
[2024-01-27 06:56] LABS: ALANINE AMINOTRANSFERASE 13 U/L (12-78); ALBUMIN 1.6 G/DL (3.4-5.0); ALBUMIN/GLOBULIN RATIO 0.4 (1.1-1.5); ALKALINE PHOSPHATASE 117 IU/L (46-116); ANION GAP 9 (8-16); ASPARTATE AMINO TRANSFERASE 14 U/L (10-37); BILIRUBIN,TOTAL 0.4 MG/DL (0.1-1.0); BLOOD UREA NITROGEN 41 MG/DL (7-18); BUN/CREATININE RATIO 8.3 (10.0-20.0); CALCIUM 7.8 MG/DL (8.5-10.1); CHLORIDE 103 MMOL/L (99-107); CREATININE 4.94 MG/DL (0.60-1.10); GLUCOSE 107 MG/DL (70-104); PHOSPHORUS 3.5 MG/DL (2.3-4.5); SODIUM 139 MMOL/L (135-145); TOTAL CARBON DIOXIDE 27.3 MMOL/L (24-32); TOTAL PROTEIN 5.9 G/DL (6.4-8.2); eCRCL 15 ML/MIN; eGFR 12 ML/MIN
[2024-01-27] MEDS: carvedilol 6.25mg tablet PO SCH ×2 (09:21→19:47)
[2024-01-27] MEDS: heparin, porcine 5000 units/ml vial SQ SCH (09:21)
[2024-01-27] MEDS: docusate sod 100mg capsule PO SCH (09:22)
[2024-01-27] MEDS ORDERED: PHO667C PO (09:36)
[2024-01-27] MEDS: acetaminophen 325mg tablet PO PRN (13:18)
[2024-01-27] MEDS ORDERED: normal saline 1000ml 250 ML IV PRN (14:15)
[2024-01-27] MEDS: normal saline 500ml IV soln 500 ML IV ONE ×2 (16:40→16:50)
[2024-01-27] MEDS: heparin 1,000unit/ml 10ml vial 10 ML IV ONE (16:59)
[2024-01-27] MEDS: carVEDilol 3.125mg tablet PO SCH (20:00)
[2024-01-27] MEDS: EPOETIN ALFA-EPBX 20,000 UNIT/ML 1 ML MDV IV ONE (20:24)
[2024-01-27] MEDS: heparin 1,000 units/ml 10ml inj HE ONE ×2 (20:40)
[2024-01-27] MEDS: normal saline 1000ml 1,000 ML IV SCH (21:36)
[2024-01-27] MEDS: CefTRIAXone/D5W-Rocephin 1gm 50 ML IV SCH (22:16)
[2024-01-27] MEDS: HYDROcodone/acetaminophen 5mg/325mg tablet PO PRN (23:56)
[2024-01-28] VITALS (12 sets, daily range): BP systolic 106–139; BP diastolic 49–77; PULSE 80–102; RESP 14–22; TEMP 97.8–100.4; O2SAT 94–98
[2024-01-28 06:50] LABS: BASOPHILS % (AUTO) 0.2 % (0-1); EOSINOPHILS % (AUTO) 0.3 % (0-6); HEMATOCRIT 28.6 % (42.0-52.0); HEMOGLOBIN 9.2 g/dl (14.0-17.9); LYMPHOCYTES # (AUTO) 0.7 X10'3 (1.1-4.8); LYMPHOCYTES % (AUTO) 6.5 % (21-51); MEAN CORPUSCULAR HEMOGLOBIN 28.2 PG (27.0-31.0); MEAN CORPUSCULAR HGB CONC 32.1 g/dL (33.0-36.5); MEAN CORPUSCULAR VOLUME 87.7 FL (78-98); MEAN PLATELET VOLUME 6.3 FL (7.4-10.4); MONOCYTES % (AUTO) 9.1 % (2-12); NEUTROPHILS # (AUTO) 9.2 X10'3 (1.8-7.7); NEUTROPHILS % (AUTO) 83.9 % (42-75); PLATELET COUNT 215 X10'3 (140-440); RED BLOOD COUNT 3.26 X10'6 (4.70-6.10); RED CELL DISTRIBUTION WIDTH 18.1 % (11.5-14.5)
[2024-01-28 07:13] LABS: ALANINE AMINOTRANSFERASE 10 U/L (12-78); ALBUMIN 1.4 G/DL (3.4-5.0); ALBUMIN/GLOBULIN RATIO 0.3 (1.1-1.5); ALKALINE PHOSPHATASE 108 IU/L (46-116); ANION GAP 9 (8-16); ASPARTATE AMINO TRANSFERASE 22 U/L (10-37); BILIRUBIN,TOTAL 0.3 MG/DL (0.1-1.0); BLOOD UREA NITROGEN 21 MG/DL (7-18); BUN/CREATININE RATIO 7.3 (10.0-20.0); CALCIUM 7.6 MG/DL (8.5-10.1); CHLORIDE 103 MMOL/L (99-107); CREATININE 2.87 MG/DL (0.60-1.10); GLUCOSE 83 MG/DL (70-104); SODIUM 139 MMOL/L (135-145); TOTAL CARBON DIOXIDE 27.5 MMOL/L (24-32); TOTAL PROTEIN 5.5 G/DL (6.4-8.2); eCRCL 26 ML/MIN; eGFR 22 ML/MIN
[2024-01-28] MEDS: meropenem inj 500 MG in normal saline 100ml IV soln 100 ML IV SCH (12:50)
[2024-01-28 15:43] LABS: C DIFF ANTIGEN POSITIVE (NEGATIVE); C DIFF SPECIMEN=DIARRHEA? ACCEPTABLE; C DIFFICILE TOXINS A&B POSITIVE (Neg)
[2024-01-28] MEDS: NUT.TX.IMP.RENAL FXN,LAC-REDUC (Nepro) 237 ML VANILLA PO SCH (18:38)
[2024-01-28] MEDS: vancomycin 125mg/5ml ORAL solution 5ml UD oral syringe PO SCH (19:33)
[2024-01-29] VITALS (19 sets, daily range): BP systolic 117–155; BP diastolic 63–80; PULSE 51–96; RESP 15–22; TEMP 97.8–100.4; O2SAT 94–98
[2024-01-29 06:04] LABS: ALANINE AMINOTRANSFERASE 10 U/L (12-78); ALBUMIN 1.3 G/DL (3.4-5.0); ALBUMIN/GLOBULIN RATIO 0.3 (1.1-1.5); ALKALINE PHOSPHATASE 107 IU/L (46-116); ANION GAP 9 (8-16); ASPARTATE AMINO TRANSFERASE 19 U/L (10-37); BILIRUBIN,TOTAL 0.3 MG/DL (0.1-1.0); BLOOD UREA NITROGEN 31 MG/DL (7-18); CALCIUM 7.8 MG/DL (8.5-10.1); CHLORIDE 107 MMOL/L (99-107); CREATININE 3.86 MG/DL (0.60-1.10); GLUCOSE 82 MG/DL (70-104); POTASSIUM 3.3 MMOL/L (3.5-5.1); SODIUM 139 MMOL/L (135-145); TOTAL CARBON DIOXIDE 23.5 MMOL/L (24-32); TOTAL PROTEIN 5.5 G/DL (6.4-8.2); eCRCL 19 ML/MIN; eGFR 16 ML/MIN
[2024-01-29 06:15] LABS: BASOPHILS % (AUTO) 0.3 % (0-1); EOSINOPHILS # (AUTO) 0.2 X10'3 (0-0.9); EOSINOPHILS % (AUTO) 2.3 % (0-6); HEMATOCRIT 30.8 % (42.0-52.0); HEMOGLOBIN 9.6 g/dl (14.0-17.9); LYMPHOCYTES % (AUTO) 13.3 % (21-51); MEAN CORPUSCULAR HGB CONC 31.2 g/dL (33.0-36.5); MEAN PLATELET VOLUME 6.5 FL (7.4-10.4); MONOCYTES # (AUTO) 0.9 X10'3 (0-0.9); MONOCYTES % (AUTO) 12.4 % (2-12); NEUTROPHILS # (AUTO) 5.5 X10'3 (1.8-7.7); NEUTROPHILS % (AUTO) 71.7 % (42-75); PLATELET COUNT 211 X10'3 (140-440); RED BLOOD COUNT 3.42 X10'6 (4.70-6.10); RED CELL DISTRIBUTION WIDTH 18.2 % (11.5-14.5); WHITE BLOOD COUNT 7.7 X10'3 (4.5-11.0)
[2024-01-29] MEDS ORDERED: normal saline 1000ml 250 ML IV PRN (07:45)
[2024-01-29] MEDS ORDERED: ertapenem sod inj 1 GM in normal saline 100ml IV soln 100 ML IV SCH (08:00)
[2024-01-29] MEDS: heparin 1,000 units/ml 10ml inj HE ONE ×2 (10:38→10:40)
[2024-01-29] MEDS: heparin 1,000unit/ml 10ml vial 10 ML IV ONE (10:39)
[2024-01-29] MEDS: EPOETIN ALFA-EPBX 20,000 UNIT/ML 1 ML MDV IV ONE (10:43)
[2024-01-29] MEDS ORDERED: diazepam 5mg tablet PO PRN (12:20)
[2024-01-29] MEDS ORDERED: albuterol 2.5 MG/3 ML nebule NEB SCH (14:00)
[2024-01-29] MEDS: calcium acetate 667mg (PhosLO) capsule PO SCH (14:05)
[2024-01-29] MEDS: oxyCODONE/APAP 10/325mg tablet PO PRN (14:15)
[2024-01-29] MEDS: ipratropium/albuterol 3ml nebule NEB SCH (15:48)
[2024-01-29] MEDS: carvedilol 6.25mg tablet PO SCH (20:16)
[2024-01-29] MEDS: cholecalciferol (vitamin D3) 1,000 unit (25mcg) tablet PO SCH (20:17)
[2024-01-29] MEDS: gabapentin 300mg capsule PO SCH (20:17)
[2024-01-30] VITALS (14 sets, daily range): BP systolic 127–155; BP diastolic 77–91; PULSE 78–92; RESP 16–20; TEMP 97.4–99.5; O2SAT 94–98
[2024-01-30 05:54] LABS: ALANINE AMINOTRANSFERASE 19 U/L (12-78); ALBUMIN 1.4 G/DL (3.4-5.0); ALBUMIN/GLOBULIN RATIO 0.3 (1.1-1.5); ALKALINE PHOSPHATASE 111 IU/L (46-116); ANION GAP 8 (8-16); ASPARTATE AMINO TRANSFERASE 20 U/L (10-37); BILIRUBIN,TOTAL 0.2 MG/DL (0.1-1.0); BLOOD UREA NITROGEN 19 MG/DL (7-18); BUN/CREATININE RATIO 7.4 (10.0-20.0); CHLORIDE 106 MMOL/L (99-107); CREATININE 2.56 MG/DL (0.60-1.10); GLUCOSE 85 MG/DL (70-104); POTASSIUM 3.4 MMOL/L (3.5-5.1); SODIUM 140 MMOL/L (135-145); TOTAL CARBON DIOXIDE 26.3 MMOL/L (24-32); TOTAL PROTEIN 5.6 G/DL (6.4-8.2); eCRCL 29 ML/MIN; eGFR 25 ML/MIN
[2024-01-30 05:57] LABS: BASOPHILS % (AUTO) 0.5 % (0-1); EOSINOPHILS # (AUTO) 0.2 X10'3 (0-0.9); EOSINOPHILS % (AUTO) 3.7 % (0-6); HEMATOCRIT 28.4 % (42.0-52.0); LYMPHOCYTES # (AUTO) 1.1 X10'3 (1.1-4.8); LYMPHOCYTES % (AUTO) 18.6 % (21-51); MEAN CORPUSCULAR HEMOGLOBIN 27.6 PG (27.0-31.0); MEAN CORPUSCULAR HGB CONC 31.6 g/dL (33.0-36.5); MEAN CORPUSCULAR VOLUME 87.6 FL (78-98); MEAN PLATELET VOLUME 6.4 FL (7.4-10.4); MONOCYTES # (AUTO) 0.7 X10'3 (0-0.9); MONOCYTES % (AUTO) 12.5 % (2-12); NEUTROPHILS # (AUTO) 3.7 X10'3 (1.8-7.7); NEUTROPHILS % (AUTO) 64.7 % (42-75); PLATELET COUNT 214 X10'3 (140-440); RED BLOOD COUNT 3.25 X10'6 (4.70-6.10); RED CELL DISTRIBUTION WIDTH 17.9 % (11.5-14.5); WHITE BLOOD COUNT 5.8 X10'3 (4.5-11.0)
[2024-01-30] MEDS ORDERED: ipratropium 0.5 MG/2.5ML nebule IH SCH (08:00)
[2024-01-30] MEDS: fluticasone nasal spray 16GM bottle NS SCH (08:32)
[2024-01-30] MEDS: vitamin B comp w/Vit. C tab 1 TAB TABLET PO SCH (08:33)
[2024-01-30] MEDS: pantoprazole 40mg Tablet.DR PO SCH (08:33)
[2024-01-30] MEDS: duloxetine 30mg CAPSULE.DR PO SCH (08:33)
[2024-01-30 10:04] LABS: HBSAG SCREEN Negative (Negative)
[2024-01-30] MEDS ORDERED: potassium Cl 40MEQ/1/2NS 520ml 520 ML IV PRN ×2 (15:30)
[2024-01-30] MEDS ORDERED: magnesium 4gm in 100ml NS 100 ML IV PRN (15:30)
[2024-01-30] MEDS ORDERED: magnesium 2GM in 50ml NS 50 ML IV PRN (15:30)
[2024-01-30] MEDS ORDERED: potassium Cl 20 mEq SR tablet PO PRN ×2 (15:30)
[2024-01-30] MEDS: K and/or MAG REPLACEMENT MC SCH (19:19)
[2024-01-31] VITALS (14 sets, daily range): BP systolic 117–142; BP diastolic 65–86; PULSE 85–96; RESP 16–20; TEMP 97.5–98.6; O2SAT 96–100
[2024-01-31] MEDS ORDERED: normal saline 1000ml 250 ML IV PRN (07:45)
[2024-01-31 08:27] LABS: BASOPHILS % (AUTO) 0.8 % (0-1); EOSINOPHILS # (AUTO) 0.3 X10'3 (0-0.9); EOSINOPHILS % (AUTO) 4.2 % (0-6); HEMATOCRIT 31.8 % (42.0-52.0); LYMPHOCYTES # (AUTO) 1.1 X10'3 (1.1-4.8); LYMPHOCYTES % (AUTO) 18.3 % (21-51); MEAN CORPUSCULAR HEMOGLOBIN 27.6 PG (27.0-31.0); MEAN CORPUSCULAR HGB CONC 31.4 g/dL (33.0-36.5); MEAN CORPUSCULAR VOLUME 87.8 FL (78-98); MEAN PLATELET VOLUME 6.5 FL (7.4-10.4); MONOCYTES # (AUTO) 0.7 X10'3 (0-0.9); MONOCYTES % (AUTO) 12.3 % (2-12); NEUTROPHILS # (AUTO) 3.9 X10'3 (1.8-7.7); NEUTROPHILS % (AUTO) 64.4 % (42-75); PLATELET COUNT 248 X10'3 (140-440); RED BLOOD COUNT 3.62 X10'6 (4.70-6.10)
[2024-01-31 08:52] LABS: ALANINE AMINOTRANSFERASE 19 U/L (12-78); ALBUMIN 1.5 G/DL (3.4-5.0); ALBUMIN/GLOBULIN RATIO 0.3 (1.1-1.5); ALKALINE PHOSPHATASE 116 IU/L (46-116); ANION GAP 7 (8-16); ASPARTATE AMINO TRANSFERASE 18 U/L (10-37); BILIRUBIN,TOTAL 0.3 MG/DL (0.1-1.0); BLOOD UREA NITROGEN 27 MG/DL (7-18); BUN/CREATININE RATIO 7.9 (10.0-20.0); CALCIUM 8.2 MG/DL (8.5-10.1); CHLORIDE 106 MMOL/L (99-107); CREATININE 3.43 MG/DL (0.60-1.10); GLUCOSE 94 MG/DL (70-104); MAGNESIUM 1.9 MG/DL (1.5-2.4); POTASSIUM 3.7 MMOL/L (3.5-5.1); SODIUM 140 MMOL/L (135-145); TOTAL CARBON DIOXIDE 27.3 MMOL/L (24-32); TOTAL PROTEIN 5.9 G/DL (6.4-8.2); eCRCL 21 ML/MIN; eGFR 18 ML/MIN
[2024-01-31 09:38] LABS: ANISOCYTOSIS 1+; PLATELET ESTIMATE NORMAL; TOTAL CELLS COUNTED 100
[2024-01-31 09:39] LABS: ELLIPTOCYTES FEW; POLYCHROMASIA FEW; STOMATOCYTES FEW; TEAR DROP CELLS FEW
[2024-01-31] MEDS: EPOETIN ALFA-EPBX 20,000 UNIT/ML 1 ML MDV IV ONE (09:43)
[2024-01-31] MEDS: heparin 1,000unit/ml 10ml vial 10 ML IV ONE (09:55)
[2024-01-31] MEDS: heparin 1,000 units/ml 10ml inj HE ONE ×2 (09:56)
[2024-01-31] MEDS ORDERED: VANC5VIA PO (10:12)
[2024-01-31] MEDS: ertapenem sod inj 1 GM in normal saline 100ml IV soln 100 ML IV ONE (11:10)
== END 2024-01-31 16:37 | disposition home health service (06) | DRG 871 ==
LOC: ER 17:35 → ED HOLD 23:59 → PCU 3S 01-27 02:32
PROVIDERS: ADMIT Internal Medicine; ATTEND Internal Medicine
PROC: 5A1D70Z Performance of Urinary Filtration, Intermittent, Less than 6 Hours Per Day (ICD-10-PCS; 2024-01-27)
PROC: 5A1D70Z Performance of Urinary Filtration, Intermittent, Less than 6 Hours Per Day (ICD-10-PCS; principal; 2024-01-29)
PROC: 5A1D70Z Performance of Urinary Filtration, Intermittent, Less than 6 Hours Per Day (ICD-10-PCS; 2024-01-31)
DX: A41.50 Gram-negative sepsis, unspecified (principal); G93.41 Metabolic encephalopathy; N18.6 End stage renal disease; I13.2 Hypertensive heart and chronic kidney disease with heart failure and with stage 5 chronic kidney disease, or end stage renal disease; N39.0 Urinary tract infection, site not specified; A04.72 Enterocolitis due to Clostridium difficile, not specified as recurrent; K21.9 Gastro-esophageal reflux disease without esophagitis; M54.9 Dorsalgia, unspecified; F32.A Depression, unspecified; G89.4 Chronic pain syndrome; J44.9 Chronic obstructive pulmonary disease, unspecified; N40.0 Benign prostatic hyperplasia without lower urinary tract symptoms; E87.6 Hypokalemia; I50.9 Heart failure, unspecified; E11.22 Type 2 diabetes mellitus with diabetic chronic kidney disease; Z91.030 Bee allergy status; Z91.041 Radiographic dye allergy status; Z79.899 Other long term (current) drug therapy; Z90.49 Acquired absence of other specified parts of digestive tract; Z87.440 Personal history of urinary (tract) infections; Z87.442 Personal history of urinary calculi; Z87.891 Personal history of nicotine dependence; Z99.2 Dependence on renal dialysis; Z83.3 Family history of diabetes mellitus; Z82.3 Family history of stroke
CPT/HCPCS: 36415; 71045; 80053; 81001; 83605; 83735; 84100; 84145; 85007; 85025; 87040; 87077; 87081; 87186; 87324; 87340; 87449; 94640; 94760; 96374; 96375; 99285; A4314; A5200; A6212; A6213; A6258; E1594; G0257; G0378; J0131; J0696; J1335; J1644; J2185; J3490; J7030; J7040; L4360; Q4081

== ENCOUNTER 2024-03-06 06:50 | Inpatient (IN) | payer BC, MEDICARE ==
[~2024-03-06] VITALS: Ht 172.7 cm; Wt 111.5 kg
[~2024-03-06 06:50] MED LIST changes: +PHO667C PO; +VANC5VIA PO
[2024-03-06 08:26] LABS: ALBUMIN 2.1 G/DL (3.4-5.0); ANION GAP 9 (8-16); CALCIUM 9.3 MG/DL (8.5-10.1); CHLORIDE 99 MMOL/L (99-107); GLUCOSE 110 MG/DL (70-104); MAGNESIUM 2.3 MG/DL (1.5-2.4); POTASSIUM 4.7 MMOL/L (3.5-5.1); SODIUM 137 MMOL/L (135-145); TOTAL CARBON DIOXIDE 29.2 MMOL/L (24-32); eCRCL 13 ML/MIN; eGFR 12 ML/MIN
[2024-03-06 08:28] LABS: BASOPHILS % (AUTO) 0.2 % (0-1); EOSINOPHILS # (AUTO) 0.1 X10'3 (0-0.9); EOSINOPHILS % (AUTO) 0.6 % (0-6); HEMATOCRIT 29.6 % (42.0-52.0); HEMOGLOBIN 9.4 g/dl (14.0-17.9); LYMPHOCYTES # (AUTO) 0.9 X10'3 (1.1-4.8); LYMPHOCYTES % (AUTO) 7.4 % (21-51); MEAN CORPUSCULAR HEMOGLOBIN 27.5 PG (27.0-31.0); MEAN CORPUSCULAR HGB CONC 31.8 g/dL (33.0-36.5); MEAN CORPUSCULAR VOLUME 86.5 FL (78-98); MEAN PLATELET VOLUME 6.5 FL (7.4-10.4); MONOCYTES # (AUTO) 1.7 X10'3 (0-0.9); MONOCYTES % (AUTO) 14.5 % (2-12); NEUTROPHILS # (AUTO) 9.3 X10'3 (1.8-7.7); NEUTROPHILS % (AUTO) 77.3 % (42-75); PLATELET COUNT 253 X10'3 (140-440); RED BLOOD COUNT 3.42 X10'6 (4.70-6.10); RED CELL DISTRIBUTION WIDTH 17.8 % (11.5-14.5)
[2024-03-06 08:32] LABS: BLOOD UREA NITROGEN 30 MG/DL (7-18); BUN/CREATININE RATIO 6.3 (10.0-20.0)
[2024-03-06 09:07] LABS: BILIRUBIN,URINE NEGATIVE (Neg); CLARITY,URINE TURBID (Clear); COLOR,URINE YELLOW (Yellow); GLUCOSE, URINE NEGATIVE (Neg); KETONES,URINE NEGATIVE (Neg); LEUKOCYTE ESTERASE ,URINE LARGE (Neg); NITRITES, URINE NEGATIVE (Neg); OCCULT BLOOD,URINE LARGE (Neg); PROTEIN,URINE 30 mg/dl (Neg); UROBILINOGEN,URINE 0.2 E.U/dL (0.2-1.0)
[2024-03-06 09:13] LABS: UA COLLECTION TYPE FOLEY CATH
[2024-03-06 09:15] LABS: BACTERIA,URINE 4+ /HPF (Neg); SQUAMOUS EPITHELIAL CELL,UR NONE SEEN /LPF (FEW); WBC,URINE TNTC /HPF (0-4)
[2024-03-06 09:16] LABS: RBC,URINE 20-50 /HPF (0-2)
[2024-03-06] MEDS: acetaminophen 325mg tablet PO ONE (09:34)
[2024-03-06] MEDS: CefTRIAXone/D5W-Rocephin 1gm 50 ML IV ONE (09:34)
[2024-03-06] MEDS ORDERED: acetaminophen 325mg tablet PO PRN (09:50)
[2024-03-06] MEDS ORDERED: magnesium 2GM in 50ml NS 50 ML IV PRN (09:50)
[2024-03-06] MEDS ORDERED: potassium Cl 20 mEq SR tablet PO PRN ×2 (09:50)
[2024-03-06] MEDS ORDERED: magnesium 4gm in 100ml NS 100 ML IV PRN (09:50)
[2024-03-06] MEDS ORDERED: potassium Cl 40MEQ/1/2NS 520ml 520 ML IV PRN (09:50)
[2024-03-06] MEDS ORDERED: magnesium Cl slow-release 64mg tablet PO PRN (09:50)
[2024-03-06] MEDS ORDERED: morphine 2 MG/ML inj. syringe IV PRN (09:50)
[2024-03-06] MEDS: normal saline 1000ml 1,000 ML IV SCH (13:11)
[2024-03-06] MEDS ORDERED: ASPI-1264 PO (13:47)
[2024-03-06] MEDS: HYDROcodone/acetaminophen 5mg/325mg tablet PO PRN (18:58)
[2024-03-06] MEDS: heparin, porcine 5000 units/ml vial SQ SCH (20:33)
[2024-03-07] VITALS (16 sets, daily range): BP systolic 83–132; BP diastolic 44–75; PULSE 70–105; RESP 11–20; TEMP 97.5–98.3; O2SAT 93–99
[2024-03-07] MEDS ORDERED: normal saline 1000ml 250 ML IV PRN (07:15)
[2024-03-07] MEDS ORDERED: non-formulary drug (Ondansetron 8mg ODT*** (Ondansetron Odt) 1 TAB) PO PRN (07:50)
[2024-03-07] MEDS ORDERED: diazepam 5mg tablet PO PRN (07:50)
[2024-03-07] MEDS ORDERED: albuterol 2.5 MG/3 ML nebule NEB PRN (07:50)
[2024-03-07] MEDS: CefTRIAXone 2gm/D5W 50ml BAG 50 ML IV SCH (07:56)
[2024-03-07] MEDS: aspirin 325mg tablet PO SCH (07:56)
[2024-03-07] MEDS: fluticasone nasal spray 16GM bottle NS SCH (08:00)
[2024-03-07] MEDS: non-formulary drug (Umeclidinium Brm/Vilanterol Tr (Anoro Ellipta 62.5-25 Mcg INH) 1 PUFFS PO SCH (08:00)
[2024-03-07 08:11] LABS: BASOPHILS % (AUTO) 0.4 % (0-1); EOSINOPHILS # (AUTO) 0.1 X10'3 (0-0.9); HEMATOCRIT 27.3 % (42.0-52.0); HEMOGLOBIN 8.7 g/dl (14.0-17.9); LYMPHOCYTES # (AUTO) 1.2 X10'3 (1.1-4.8); LYMPHOCYTES % (AUTO) 11.7 % (21-51); MEAN CORPUSCULAR HEMOGLOBIN 27.6 PG (27.0-31.0); MEAN CORPUSCULAR VOLUME 86.4 FL (78-98); MONOCYTES # (AUTO) 1.2 X10'3 (0-0.9); MONOCYTES % (AUTO) 12.1 % (2-12); NEUTROPHILS # (AUTO) 7.4 X10'3 (1.8-7.7); NEUTROPHILS % (AUTO) 74.8 % (42-75); PLATELET COUNT 236 X10'3 (140-440); RED BLOOD COUNT 3.16 X10'6 (4.70-6.10); WHITE BLOOD COUNT 9.8 X10'3 (4.5-11.0)
[2024-03-07 08:27] LABS: ALANINE AMINOTRANSFERASE 11 U/L (12-78); ALBUMIN 1.7 G/DL (3.4-5.0); ALBUMIN/GLOBULIN RATIO 0.3 (1.1-1.5); ALKALINE PHOSPHATASE 135 IU/L (46-116); ANION GAP 6 (8-16); ASPARTATE AMINO TRANSFERASE 8 U/L (10-37); BILIRUBIN,TOTAL 0.4 MG/DL (0.1-1.0); BLOOD UREA NITROGEN 36 MG/DL (7-18); BUN/CREATININE RATIO 6.4 (10.0-20.0); CALCIUM 8.4 MG/DL (8.5-10.1); CHLORIDE 97 MMOL/L (99-107); CREATININE 5.59 MG/DL (0.60-1.10); GLUCOSE 80 MG/DL (70-104); POTASSIUM 4.4 MMOL/L (3.5-5.1); SODIUM 132 MMOL/L (135-145); TOTAL CARBON DIOXIDE 28.8 MMOL/L (24-32); TOTAL PROTEIN 6.6 G/DL (6.4-8.2); eCRCL 12 ML/MIN; eGFR 10 ML/MIN
[2024-03-07] MEDS: vitamin B comp w/Vit. C tab 1 TAB TABLET PO SCH (09:23)
[2024-03-07] MEDS: carvedilol 6.25mg tablet PO SCH (09:23)
[2024-03-07] MEDS: calcium acetate 667mg (PhosLO) capsule PO SCH (09:24)
[2024-03-07] MEDS: tamsulosin 0.4mg capsule PO SCH (09:24)
[2024-03-07] MEDS: pantoprazole 40mg Tablet.DR PO SCH (09:24)
[2024-03-07] MEDS: duloxetine 30mg CAPSULE.DR PO SCH (09:25)
[2024-03-07] MEDS: heparin 1,000unit/ml 10ml vial 10 ML IV ONE (14:50)
[2024-03-07] MEDS: heparin 1,000 units/ml 10ml inj HE ONE ×2 (15:09)
[2024-03-07] MEDS: EPOETIN ALFA-EPBX 20,000 UNIT/ML 1 ML MDV IV ONE (15:10)
[2024-03-07] MEDS ORDERED: MEROPENEM 1GM/NS 100ML IVPB 100 ML IV SCH (16:00)
[2024-03-07] MEDS: acetaminophen 325mg tablet PO PRN (16:53)
[2024-03-07] MEDS: cholecalciferol (vitamin D3) 1,000 unit (25mcg) tablet PO SCH (20:59)
[2024-03-07] MEDS ORDERED: gabapentin 300mg capsule PO SCH (21:00)
[2024-03-07] MEDS: oxyCODONE/APAP 10/325mg tablet PO PRN (21:00)
[2024-03-07] MEDS ORDERED: meropenem inj 500 MG in normal saline 100ml IV soln 100 ML IV SCH (22:25)
[2024-03-07] MEDS: meropenem inj 500 MG in normal saline 100ml IV soln 100 ML IV SCH (22:50)
[2024-03-08] VITALS (8 sets, daily range): BP systolic 98–119; BP diastolic 60–73; PULSE 80–98; RESP 12–21; TEMP 97–98.4; O2SAT 94–98
[2024-03-08 08:12] LABS: ALANINE AMINOTRANSFERASE 13 U/L (12-78); ALBUMIN 1.9 G/DL (3.4-5.0); ALBUMIN/GLOBULIN RATIO 0.3 (1.1-1.5); ALKALINE PHOSPHATASE 136 IU/L (46-116); ANION GAP 9 (8-16); ASPARTATE AMINO TRANSFERASE 24 U/L (10-37); BILIRUBIN,TOTAL 0.3 MG/DL (0.1-1.0); BLOOD UREA NITROGEN 22 MG/DL (7-18); BUN/CREATININE RATIO 5.6 (10.0-20.0); CALCIUM 8.9 MG/DL (8.5-10.1); CHLORIDE 97 MMOL/L (99-107); CREATININE 3.96 MG/DL (0.60-1.10); GLUCOSE 90 MG/DL (70-104); POTASSIUM 3.9 MMOL/L (3.5-5.1); SODIUM 134 MMOL/L (135-145); TOTAL CARBON DIOXIDE 28.1 MMOL/L (24-32); TOTAL PROTEIN 7.4 G/DL (6.4-8.2); eCRCL 17 ML/MIN; eGFR 15 ML/MIN
[2024-03-08 08:13] LABS: BASOPHILS # (AUTO) 0.1 X10'3 (0-0.2); BASOPHILS % (AUTO) 0.6 % (0-1); EOSINOPHILS # (AUTO) 0.2 X10'3 (0-0.9); EOSINOPHILS % (AUTO) 1.9 % (0-6); HEMATOCRIT 31.3 % (42.0-52.0); HEMOGLOBIN 9.8 g/dl (14.0-17.9); LYMPHOCYTES # (AUTO) 1.5 X10'3 (1.1-4.8); LYMPHOCYTES % (AUTO) 15.1 % (21-51); MEAN CORPUSCULAR HEMOGLOBIN 27.3 PG (27.0-31.0); MEAN CORPUSCULAR HGB CONC 31.5 g/dL (33.0-36.5); MEAN CORPUSCULAR VOLUME 86.7 FL (78-98); MEAN PLATELET VOLUME 6.4 FL (7.4-10.4); MONOCYTES # (AUTO) 1.4 X10'3 (0-0.9); MONOCYTES % (AUTO) 13.5 % (2-12); NEUTROPHILS % (AUTO) 68.9 % (42-75); PLATELET COUNT 266 X10'3 (140-440); RED BLOOD COUNT 3.61 X10'6 (4.70-6.10); RED CELL DISTRIBUTION WIDTH 18.3 % (11.5-14.5); WHITE BLOOD COUNT 10.2 X10'3 (4.5-11.0)
[2024-03-08] MEDS: gabapentin 100mg capsule PO SCH (08:54)
[2024-03-08] MEDS: ondansetron/PF 4mg/2ml inj IV PRN (10:46)
[2024-03-08 14:45] LABS: HBSAG SCREEN Negative (Negative)
[2024-03-08 21:21] LABS: HBSAG SCREEN Negative (Negative); HEP B CORE AB, IGM Negative (Negative); HEP B CORE AB, TOT Negative (Negative)
[2024-03-08] MEDS ORDERED: meropenem inj 500 MG in normal saline 100ml IV soln 100 ML IV SCH (21:25)
[2024-03-09] VITALS (8 sets, daily range): BP systolic 85–127; BP diastolic 41–73; PULSE 80–90; RESP 12–20; TEMP 97.3–98.2; O2SAT 94–99
[2024-03-09 07:50] LABS: BASOPHILS % (AUTO) 0.4 % (0-1); EOSINOPHILS # (AUTO) 0.3 X10'3 (0-0.9); EOSINOPHILS % (AUTO) 3.1 % (0-6); HEMATOCRIT 28.2 % (42.0-52.0); LYMPHOCYTES # (AUTO) 1.3 X10'3 (1.1-4.8); LYMPHOCYTES % (AUTO) 15.2 % (21-51); MEAN CORPUSCULAR HEMOGLOBIN 27.6 PG (27.0-31.0); MEAN CORPUSCULAR VOLUME 86.4 FL (78-98); MEAN PLATELET VOLUME 6.2 FL (7.4-10.4); MONOCYTES % (AUTO) 11.7 % (2-12); NEUTROPHILS # (AUTO) 6.1 X10'3 (1.8-7.7); NEUTROPHILS % (AUTO) 69.6 % (42-75); PLATELET COUNT 275 X10'3 (140-440); RED BLOOD COUNT 3.26 X10'6 (4.70-6.10); RED CELL DISTRIBUTION WIDTH 17.9 % (11.5-14.5); WHITE BLOOD COUNT 8.8 X10'3 (4.5-11.0)
[2024-03-09 08:06] LABS: ALANINE AMINOTRANSFERASE 27 U/L (12-78); ALBUMIN 1.7 G/DL (3.4-5.0); ALBUMIN/GLOBULIN RATIO 0.3 (1.1-1.5); ALKALINE PHOSPHATASE 113 IU/L (46-116); ANION GAP 6 (8-16); ASPARTATE AMINO TRANSFERASE 30 U/L (10-37); BILIRUBIN,TOTAL 0.3 MG/DL (0.1-1.0); BLOOD UREA NITROGEN 33 MG/DL (7-18); BUN/CREATININE RATIO 6.6 (10.0-20.0); CALCIUM 8.9 MG/DL (8.5-10.1); CHLORIDE 98 MMOL/L (99-107); CREATININE 5.02 MG/DL (0.60-1.10); GLUCOSE 95 MG/DL (70-104); POTASSIUM 4.1 MMOL/L (3.5-5.1); SODIUM 132 MMOL/L (135-145); TOTAL CARBON DIOXIDE 27.9 MMOL/L (24-32); TOTAL PROTEIN 6.7 G/DL (6.4-8.2); eCRCL 13 ML/MIN; eGFR 11 ML/MIN
[2024-03-10] VITALS (14 sets, daily range): BP systolic 101–139; BP diastolic 66–84; PULSE 77–100; RESP 16–20; TEMP 97.5–98.6; O2SAT 93–98
[2024-03-10 06:48] LABS: BASOPHILS % (AUTO) 0.5 % (0-1); EOSINOPHILS # (AUTO) 0.4 X10'3 (0-0.9); EOSINOPHILS % (AUTO) 5.6 % (0-6); HEMATOCRIT 27.7 % (42.0-52.0); LYMPHOCYTES # (AUTO) 1.5 X10'3 (1.1-4.8); LYMPHOCYTES % (AUTO) 21.2 % (21-51); MEAN CORPUSCULAR HEMOGLOBIN 27.7 PG (27.0-31.0); MEAN CORPUSCULAR HGB CONC 32.3 g/dL (33.0-36.5); MEAN CORPUSCULAR VOLUME 85.7 FL (78-98); MONOCYTES # (AUTO) 0.9 X10'3 (0-0.9); MONOCYTES % (AUTO) 13.4 % (2-12); NEUTROPHILS # (AUTO) 4.1 X10'3 (1.8-7.7); NEUTROPHILS % (AUTO) 59.3 % (42-75); PLATELET COUNT 279 X10'3 (140-440); RED BLOOD COUNT 3.24 X10'6 (4.70-6.10); RED CELL DISTRIBUTION WIDTH 17.7 % (11.5-14.5); WHITE BLOOD COUNT 6.9 X10'3 (4.5-11.0)
[2024-03-10 06:58] LABS: ALANINE AMINOTRANSFERASE 35 U/L (12-78); ALBUMIN 1.8 G/DL (3.4-5.0); ALBUMIN/GLOBULIN RATIO 0.4 (1.1-1.5); ALKALINE PHOSPHATASE 121 IU/L (46-116); ANION GAP 5 (8-16); ASPARTATE AMINO TRANSFERASE 22 U/L (10-37); BILIRUBIN,TOTAL 0.3 MG/DL (0.1-1.0); BLOOD UREA NITROGEN 39 MG/DL (7-18); BUN/CREATININE RATIO 6.7 (10.0-20.0); CALCIUM 9.2 MG/DL (8.5-10.1); CHLORIDE 98 MMOL/L (99-107); CREATININE 5.82 MG/DL (0.60-1.10); GLUCOSE 100 MG/DL (70-104); POTASSIUM 4.5 MMOL/L (3.5-5.1); SODIUM 132 MMOL/L (135-145); TOTAL CARBON DIOXIDE 29.2 MMOL/L (24-32); TOTAL PROTEIN 6.8 G/DL (6.4-8.2); eCRCL 11 ML/MIN; eGFR 10 ML/MIN
[2024-03-10] MEDS ORDERED: normal saline 1000ml 250 ML IV PRN (07:35)
[2024-03-10] MEDS ORDERED: albumin (human) 25% 100ml IV 100 ML IV PRN (08:00)
[2024-03-10] MEDS: EPOETIN ALFA-EPBX 20,000 UNIT/ML 1 ML MDV IV ONE ×2 (11:51→12:02)
[2024-03-10] MEDS: heparin 1,000unit/ml 10ml vial 10 ML IV ONE ×2 (11:54→11:58)
[2024-03-10] MEDS: heparin 1,000 units/ml 10ml inj HE ONE ×4 (11:55→12:01)
[2024-03-10] MEDS: heparin 1,000 units/ml 10ml inj IV ONE (12:02)
[2024-03-10] MEDS: meropenem inj 500 MG in normal saline 100ml IV soln 100 ML IV SCH (13:58)
[2024-03-10] MEDS: vancomycin 125mg/5ml ORAL solution 5ml UD oral syringe PO SCH (14:00)
[2024-03-11] VITALS (8 sets, daily range): BP systolic 108–126; BP diastolic 61–80; PULSE 68–95; RESP 11–20; TEMP 96.9–98.7; O2SAT 93–98
[2024-03-11 09:05] LABS: BASOPHILS % (AUTO) 0.6 % (0-1); EOSINOPHILS # (AUTO) 0.3 X10'3 (0-0.9); EOSINOPHILS % (AUTO) 4.5 % (0-6); HEMATOCRIT 27.8 % (42.0-52.0); LYMPHOCYTES # (AUTO) 1.4 X10'3 (1.1-4.8); LYMPHOCYTES % (AUTO) 21.4 % (21-51); MEAN CORPUSCULAR HGB CONC 32.4 g/dL (33.0-36.5); MEAN CORPUSCULAR VOLUME 86.4 FL (78-98); MEAN PLATELET VOLUME 6.2 FL (7.4-10.4); MONOCYTES # (AUTO) 0.8 X10'3 (0-0.9); MONOCYTES % (AUTO) 12.9 % (2-12); NEUTROPHILS # (AUTO) 3.9 X10'3 (1.8-7.7); NEUTROPHILS % (AUTO) 60.6 % (42-75); PLATELET COUNT 288 X10'3 (140-440); RED BLOOD COUNT 3.21 X10'6 (4.70-6.10); RED CELL DISTRIBUTION WIDTH 18.1 % (11.5-14.5); WHITE BLOOD COUNT 6.5 X10'3 (4.5-11.0)
[2024-03-11 09:39] LABS: PLATELET ESTIMATE NORMAL; POLYCHROMASIA 1+; STOMATOCYTES FEW; TOTAL CELLS COUNTED 100
[2024-03-11 09:40] LABS: ANISOCYTOSIS 2+
[2024-03-11 10:44] LABS: ALANINE AMINOTRANSFERASE 35 U/L (12-78); ALBUMIN 1.9 G/DL (3.4-5.0); ALBUMIN/GLOBULIN RATIO 0.4 (1.1-1.5); ALKALINE PHOSPHATASE 116 IU/L (46-116); ANION GAP 11 (8-16); ASPARTATE AMINO TRANSFERASE 19 U/L (10-37); BILIRUBIN,TOTAL 0.2 MG/DL (0.1-1.0); BLOOD UREA NITROGEN 25 MG/DL (7-18); BUN/CREATININE RATIO 6.1 (10.0-20.0); CALCIUM 9.4 MG/DL (8.5-10.1); CHLORIDE 98 MMOL/L (99-107); CREATININE 4.07 MG/DL (0.60-1.10); GLUCOSE 98 MG/DL (70-104); SODIUM 135 MMOL/L (135-145); TOTAL CARBON DIOXIDE 25.9 MMOL/L (24-32); TOTAL PROTEIN 6.7 G/DL (6.4-8.2); eCRCL 16 ML/MIN; eGFR 15 ML/MIN
[2024-03-11 10:58] LABS: POTASSIUM 4.2 MMOL/L (3.5-5.1)
[2024-03-12] VITALS (16 sets, daily range): BP systolic 97–143; BP diastolic 5–81; PULSE 68–122; RESP 13–18; TEMP 97.4–98; O2SAT 95–99
[2024-03-12] MEDS ORDERED: normal saline 1000ml 250 ML IV PRN (06:40)
[2024-03-12 08:42] LABS: BASOPHILS % (AUTO) 0.9 % (0-1); EOSINOPHILS # (AUTO) 0.3 X10'3 (0-0.9); EOSINOPHILS % (AUTO) 5.2 % (0-6); HEMATOCRIT 28.4 % (42.0-52.0); HEMOGLOBIN 9.3 g/dl (14.0-17.9); LYMPHOCYTES # (AUTO) 1.4 X10'3 (1.1-4.8); LYMPHOCYTES % (AUTO) 24.5 % (21-51); MEAN CORPUSCULAR HGB CONC 32.6 g/dL (33.0-36.5); MEAN CORPUSCULAR VOLUME 86.1 FL (78-98); MEAN PLATELET VOLUME 6.2 FL (7.4-10.4); MONOCYTES # (AUTO) 0.5 X10'3 (0-0.9); NEUTROPHILS # (AUTO) 3.5 X10'3 (1.8-7.7); NEUTROPHILS % (AUTO) 60.4 % (42-75); PLATELET COUNT 303 X10'3 (140-440); RED CELL DISTRIBUTION WIDTH 17.8 % (11.5-14.5); WHITE BLOOD COUNT 5.7 X10'3 (4.5-11.0)
[2024-03-12] MEDS: heparin 1,000unit/ml 10ml vial 10 ML IV ONE (08:55)
[2024-03-12] MEDS: heparin 1,000 units/ml 10ml inj HE ONE ×2 (08:56→08:57)
[2024-03-12] MEDS: EPOETIN ALFA-EPBX 20,000 UNIT/ML 1 ML MDV IV ONE (08:57)
[2024-03-12 09:21] LABS: ALANINE AMINOTRANSFERASE 32 U/L (12-78); ALBUMIN/GLOBULIN RATIO 0.4 (1.1-1.5); ALKALINE PHOSPHATASE 130 IU/L (46-116); ANION GAP 7 (8-16); ASPARTATE AMINO TRANSFERASE 19 U/L (10-37); BILIRUBIN,TOTAL 0.3 MG/DL (0.1-1.0); BLOOD UREA NITROGEN 35 MG/DL (7-18); BUN/CREATININE RATIO 7.6 (10.0-20.0); CALCIUM 9.5 MG/DL (8.5-10.1); CHLORIDE 97 MMOL/L (99-107); CREATININE 4.59 MG/DL (0.60-1.10); GLUCOSE 89 MG/DL (70-104); POTASSIUM 4.6 MMOL/L (3.5-5.1); SODIUM 133 MMOL/L (135-145); TOTAL CARBON DIOXIDE 29.5 MMOL/L (24-32); eCRCL 14 ML/MIN; eGFR 13 ML/MIN
[2024-03-13] VITALS (18 sets, daily range): BP systolic 95–129; BP diastolic 51–70; PULSE 73–117; RESP 13–20; TEMP 97–98.3; O2SAT 91–100
[2024-03-13 08:27] LABS: ALANINE AMINOTRANSFERASE 32 U/L (12-78); ALBUMIN 2.1 G/DL (3.4-5.0); ALBUMIN/GLOBULIN RATIO 0.4 (1.1-1.5); ALKALINE PHOSPHATASE 128 IU/L (46-116); ANION GAP 7 (8-16); ASPARTATE AMINO TRANSFERASE 16 U/L (10-37); BILIRUBIN,TOTAL 0.3 MG/DL (0.1-1.0); BLOOD UREA NITROGEN 27 MG/DL (7-18); BUN/CREATININE RATIO 7.7 (10.0-20.0); CALCIUM 9.3 MG/DL (8.5-10.1); CHLORIDE 99 MMOL/L (99-107); GLUCOSE 92 MG/DL (70-104); POTASSIUM 4.4 MMOL/L (3.5-5.1); SODIUM 135 MMOL/L (135-145); TOTAL CARBON DIOXIDE 29.5 MMOL/L (24-32); eCRCL 19 ML/MIN; eGFR 17 ML/MIN
[2024-03-13] MEDS ORDERED: LIDOcaine 1% W/epiNEPHrine 1:100,000 20ml vial ONE (11:15)
[2024-03-13] MEDS ORDERED: BUPIVAcaine/PF 2.5mg/ml (0.25%) 10ml vial ONE (11:16)
[2024-03-13] MEDS ORDERED: hydrALAZINE 20mg/ml inj. IV PRN (13:30)
[2024-03-13] MEDS ORDERED: morphine 2 MG/ML inj. syringe IV PRN (13:30)
[2024-03-13] MEDS ORDERED: labetalol 20mg/4ml (5mg/ml) syringe IV PRN (13:30)
[2024-03-13] MEDS ORDERED: ondansetron/PF 4mg/2ml inj IV PRN (13:30)
[2024-03-13] MEDS ORDERED: morphine 4 MG/ML inj SYRINge IV PRN (13:30)
[2024-03-13] MEDS ORDERED: HYDROmorphone/PF 0.2 MG/ML SYRINGE IV PRN ×2 (13:30)
[2024-03-13] MEDS ORDERED: normal saline 1000ml 1,000 ML IV ONE (13:30)
[2024-03-13] MEDS ORDERED: sevoflurane 250ml liquid IH ONE (14:08)
[2024-03-13] MEDS ORDERED: fentaNYL/PF 50MCG/1 ML 2ML syringe ONE (14:11)
[2024-03-13] MEDS ORDERED: midazolam 1 mg/ML 2ml injection ONE (14:15)
[2024-03-13] MEDS ORDERED: phenylephrine 10mg/ml inj. -priapism dosing ONE (14:32)
[2024-03-13] MEDS ORDERED: ePHEDrine 50MG/ML INJ. ONE (14:32)
[2024-03-13] MEDS ORDERED: LIDOcaine 2% (20mg/ml) 5ml vial ONE (14:32)
[2024-03-13] MEDS ORDERED: 0.9 % SODIUM CHLORIDE 10 ML VIAL ONE (14:32)
[2024-03-13] MEDS ORDERED: ceFAZolin 1000mg inj ONE ×2 (14:32)
[2024-03-13] MEDS ORDERED: dexamethasone sod phosphate 4mg/ml inj. ONE (14:32)
[2024-03-13] MEDS ORDERED: propofol inj 20 ML IV ONE (14:32)
[2024-03-13] MEDS ORDERED: ondansetron/PF 4mg/2ml inj ONE (14:32)
[2024-03-13] MEDS: heparin 10,000 units/1 ML INJ ONE (14:39)
[2024-03-13] MEDS ORDERED: albumin (Human) 5% 250ml 250 ML IV ONE (14:52)
[2024-03-13] MEDS: BUPIVAcaine/PF 2.5mg/ml (0.25%) 10ml vial IJ ONE (15:15)
[2024-03-13] MEDS: acetaminophen 1,000mg/100ml IV 100 ML IV ONE (15:26)
[2024-03-14] VITALS (11 sets, daily range): BP systolic 96–136; BP diastolic 63–95; PULSE 67–100; RESP 14–20; TEMP 97.4–98.1; O2SAT 95–98
[2024-03-14] MEDS ORDERED: normal saline 1000ml 250 ML IV PRN (06:55)
[2024-03-14 08:14] LABS: ALANINE AMINOTRANSFERASE 24 U/L (12-78); ALBUMIN 2.3 G/DL (3.4-5.0); ALBUMIN/GLOBULIN RATIO 0.5 (1.1-1.5); ALKALINE PHOSPHATASE 128 IU/L (46-116); ANION GAP 9 (8-16); ASPARTATE AMINO TRANSFERASE 15 U/L (10-37); BILIRUBIN,TOTAL 0.3 MG/DL (0.1-1.0); BLOOD UREA NITROGEN 39 MG/DL (7-18); BUN/CREATININE RATIO 8.8 (10.0-20.0); CALCIUM 9.4 MG/DL (8.5-10.1); CHLORIDE 98 MMOL/L (99-107); CREATININE 4.41 MG/DL (0.60-1.10); GLUCOSE 104 MG/DL (70-104); POTASSIUM 5.1 MMOL/L (3.5-5.1); SODIUM 133 MMOL/L (135-145); TOTAL CARBON DIOXIDE 26.3 MMOL/L (24-32); TOTAL PROTEIN 7.2 G/DL (6.4-8.2); eCRCL 15 ML/MIN; eGFR 13 ML/MIN
[2024-03-14 09:18] LABS: BASOPHILS % (AUTO) 0.2 % (0-1); EOSINOPHILS % (AUTO) 0 % (0-6); HEMATOCRIT 32.7 % (42.0-52.0); HEMOGLOBIN 10.3 g/dl (14.0-17.9); LYMPHOCYTES # (AUTO) 0.8 X10'3 (1.1-4.8); LYMPHOCYTES % (AUTO) 9.5 % (21-51); MEAN CORPUSCULAR HGB CONC 31.4 g/dL (33.0-36.5); MEAN PLATELET VOLUME 6.5 FL (7.4-10.4); MONOCYTES # (AUTO) 0.4 X10'3 (0-0.9); MONOCYTES % (AUTO) 4.3 % (2-12); NEUTROPHILS # (AUTO) 7.3 X10'3 (1.8-7.7); PLATELET COUNT 289 X10'3 (140-440); RED BLOOD COUNT 3.67 X10'6 (4.70-6.10); RED CELL DISTRIBUTION WIDTH 19.4 % (11.5-14.5); WHITE BLOOD COUNT 8.5 X10'3 (4.5-11.0)
[2024-03-14] MEDS: heparin 1,000unit/ml 10ml vial 10 ML IV ONE (09:45)
[2024-03-14] MEDS: heparin 1,000 units/ml 10ml inj HE ONE ×2 (09:51)
[2024-03-14] MEDS: EPOETIN ALFA-EPBX 20,000 UNIT/ML 1 ML MDV IV ONE (09:52)
== END 2024-03-14 14:39 | disposition home health service (06) | DRG 673 ==
LOC: ER 06:50 → ED HOLD 09:58 → PCU 3S 03-07 01:20
PROVIDERS: ADMIT Internal Medicine; ATTEND Internal Medicine
PROC: 5A1D70Z Performance of Urinary Filtration, Intermittent, Less than 6 Hours Per Day (ICD-10-PCS; 2024-03-07)
PROC: 5A1D70Z Performance of Urinary Filtration, Intermittent, Less than 6 Hours Per Day (ICD-10-PCS; 2024-03-10)
PROC: 5A1D70Z Performance of Urinary Filtration, Intermittent, Less than 6 Hours Per Day (ICD-10-PCS; 2024-03-12)
PROC: 03180ZF Bypass Left Brachial Artery to Lower Arm Vein, Open Approach (ICD-10-PCS; principal; 2024-03-13 14:08)
PROC: 5A1D70Z Performance of Urinary Filtration, Intermittent, Less than 6 Hours Per Day (ICD-10-PCS; 2024-03-14)
DX: N39.0 Urinary tract infection, site not specified (principal); N18.6 End stage renal disease; I13.2 Hypertensive heart and chronic kidney disease with heart failure and with stage 5 chronic kidney disease, or end stage renal disease; J96.10 Chronic respiratory failure, unspecified whether with hypoxia or hypercapnia; Z16.24 Resistance to multiple antibiotics; Z68.41 Body mass index [BMI] 40.0-44.9, adult; Z20.822 Contact with and (suspected) exposure to COVID-19; K21.9 Gastro-esophageal reflux disease without esophagitis; J44.9 Chronic obstructive pulmonary disease, unspecified; N40.0 Benign prostatic hyperplasia without lower urinary tract symptoms; E66.9 Obesity, unspecified; B96.5 Pseudomonas (aeruginosa) (mallei) (pseudomallei) as the cause of diseases classified elsewhere; F31.9 Bipolar disorder, unspecified; N20.0 Calculus of kidney; G89.4 Chronic pain syndrome; I50.9 Heart failure, unspecified; B96.1 Klebsiella pneumoniae [K. pneumoniae] as the cause of diseases classified elsewhere; Z99.81 Dependence on supplemental oxygen; Z99.2 Dependence on renal dialysis; Z90.49 Acquired absence of other specified parts of digestive tract; Z87.891 Personal history of nicotine dependence; Z87.442 Personal history of urinary calculi; Z83.3 Family history of diabetes mellitus; Z82.3 Family history of stroke; Z80.3 Family history of malignant neoplasm of breast; Z91.030 Bee allergy status; Z91.041 Radiographic dye allergy status; Z79.899 Other long term (current) drug therapy
CPT/HCPCS: 99285; Z7506; Z7508; 36415; 71045; 80048; 80053; 81001; 82948; 83605; 83735; 85007; 85025; 86704; 86705; 87040; 87077; 87081; 87088; 87186; 87340; 87502; 87503; 87811; 93005; 93930; 93970; 97161; 97530; 97535; A4215; A4314; A4340; A4358; A4615; A4618; A5200; A6213; A6222; A6223; A6250; A6258; A6449; A7000; E1594; G0257; G0378; J0690; J0696; J1100; J1644; J2185; J2250; J2370; J2405; J2704; J3010; J3490; J7030; J7040; J7120; P9045; Q4081

== ENCOUNTER 2024-03-24 04:52 | Inpatient (IN) | payer BC, MEDICARE ==
[~2024-03-24] VITALS: Ht 172.7 cm; Wt 116.5 kg
[~2024-03-24 04:52] MED LIST changes: +ASPI-1264 PO; -VANC5VIA PO
[2024-03-24] MEDS: normal saline 500ml IV soln 500 ML IV SCH (05:20)
[2024-03-24 05:54] LABS: BASOPHILS % (AUTO) 0.2 % (0-1); EOSINOPHILS % (AUTO) 0.1 % (0-6); HEMATOCRIT 31.5 % (42.0-52.0); HEMOGLOBIN 9.9 g/dl (14.0-17.9); LYMPHOCYTES # (AUTO) 0.8 X10'3 (1.1-4.8); LYMPHOCYTES % (AUTO) 5.7 % (21-51); MEAN CORPUSCULAR HEMOGLOBIN 27.7 PG (27.0-31.0); MEAN CORPUSCULAR HGB CONC 31.4 g/dL (33.0-36.5); MEAN CORPUSCULAR VOLUME 88.3 FL (78-98); MEAN PLATELET VOLUME 6.4 FL (7.4-10.4); MONOCYTES # (AUTO) 1.6 X10'3 (0-0.9); MONOCYTES % (AUTO) 11.3 % (2-12); NEUTROPHILS # (AUTO) 11.6 X10'3 (1.8-7.7); NEUTROPHILS % (AUTO) 82.7 % (42-75); PLATELET COUNT 270 X10'3 (140-440); RED BLOOD COUNT 3.57 X10'6 (4.70-6.10)
[2024-03-24] MEDS: acetaminophen 1,000mg/100ml IV 100 ML IV ONE (06:07)
[2024-03-24 06:08] LABS: ALBUMIN 2.3 G/DL (3.4-5.0); ANION GAP 8 (8-16); BLOOD UREA NITROGEN 27 MG/DL (7-18); CALCIUM 8.7 MG/DL (8.5-10.1); CHLORIDE 101 MMOL/L (99-107); CREATININE 4.49 MG/DL (0.60-1.10); GLUCOSE 111 MG/DL (70-104); MAGNESIUM 1.8 MG/DL (1.5-2.4); POTASSIUM 4.3 MMOL/L (3.5-5.1); PRO BRAIN NATRIURETIC PEPTIDE 6669 PG/ML (0-125); SODIUM 139 MMOL/L (135-145); TOTAL CARBON DIOXIDE 29.7 MMOL/L (24-32); eCRCL 15 ML/MIN; eGFR 13 ML/MIN
[2024-03-24] MEDS: piperacillin/tazo 3.375gm/50ml 50 ML IV ONE (06:08)
[2024-03-24 06:43] LABS: BILIRUBIN,URINE NEGATIVE (Neg); CLARITY,URINE CLOUDY (Clear); COLOR,URINE YELLOW (Yellow); GLUCOSE, URINE NEGATIVE (Neg); KETONES,URINE NEGATIVE (Neg); LEUKOCYTE ESTERASE ,URINE LARGE (Neg); NITRITES, URINE NEGATIVE (Neg); OCCULT BLOOD,URINE SMALL (Neg); PROTEIN,URINE 100 mg/dl (Neg); UROBILINOGEN,URINE 0.2 E.U/dL (0.2-1.0)
[2024-03-24] MEDS: vancomycin/NS 1 GM ADD-VANTAGE 250 ML IV ONE (06:54)
[2024-03-24 06:59] LABS: UA COLLECTION TYPE FOLEY CATH
[2024-03-24 07:00] LABS: WBC,URINE TNTC /HPF (0-4)
[2024-03-24 07:01] LABS: BACTERIA,URINE 4+ /HPF (Neg); MUCUS STRANDS NONE SEEN /LPF (Neg); RBC,URINE NONE SEEN /HPF (0-2); SQUAMOUS EPITHELIAL CELL,UR FEW /LPF (FEW)
[2024-03-24] MEDS ORDERED: magnesium 2GM in 50ml NS 50 ML IV PRN (08:25)
[2024-03-24] MEDS ORDERED: potassium Cl 20 mEq SR tablet PO PRN ×2 (08:25)
[2024-03-24] MEDS ORDERED: magnesium 4gm in 100ml NS 100 ML IV PRN (08:25)
[2024-03-24] MEDS ORDERED: ondansetron/PF 4mg/2ml inj IV PRN (08:25)
[2024-03-24] MEDS ORDERED: magnesium Cl slow-release 64mg tablet PO PRN (08:25)
[2024-03-24] MEDS ORDERED: potassium Cl 40MEQ/1/2NS 520ml 520 ML IV PRN (08:25)
[2024-03-24] MEDS ORDERED: acetaminophen 325mg tablet PO PRN (08:25)
[2024-03-24 08:49] LABS: C-REACTIVE PROTEIN 16.98 MG/DL (0.0-0.5)
[2024-03-24 10:30] VITALS: BP 92/52; PULSE 77; RESP 20; TEMP 98.6; O2SAT 96
[2024-03-24] MEDS: acetaminophen 325mg tablet PO PRN (10:53)
[2024-03-24] MEDS: meropenem inj 500 MG in normal saline 100ml IV soln 100 ML IV SCH (12:15)
[2024-03-24] MEDS: VANCOMYCIN 125 MG/5 ML oral SOLN.RECON 5mL UD syringe (FIRVANQ) PO SCH (13:53)
[2024-03-24] MEDS ORDERED: piperacillin/tazo 3.375gm/50ml 50 ML IV SCH (16:00)
[2024-03-24 18:00] VITALS: BP 123/63; PULSE 84; RESP 17; TEMP 98.8; O2SAT 97
[2024-03-24] MEDS: heparin, porcine 5000 units/ml vial SQ SCH (19:45)
[2024-03-24 20:00] VITALS: RESP 17
[2024-03-24 22:00] VITALS: BP 97/50; PULSE 101; RESP 21; TEMP 98.6; O2SAT 96
[2024-03-25] VITALS (16 sets, daily range): BP systolic 96–119; BP diastolic 46–78; PULSE 84–101; RESP 16–21; TEMP 97.4–98.6; O2SAT 95–99
[2024-03-25] MEDS: vancomycin inj 500 MG in normal saline 100ml IV soln 100 ML IV SCH (07:08)
[2024-03-25 08:54] LABS: BASOPHILS # (AUTO) 0.1 X10'3 (0-0.2); BASOPHILS % (AUTO) 0.4 % (0-1); EOSINOPHILS # (AUTO) 0.1 X10'3 (0-0.9); EOSINOPHILS % (AUTO) 0.5 % (0-6); HEMATOCRIT 29.8 % (42.0-52.0); HEMOGLOBIN 9.3 g/dl (14.0-17.9); LYMPHOCYTES % (AUTO) 6.8 % (21-51); MEAN CORPUSCULAR HEMOGLOBIN 27.3 PG (27.0-31.0); MEAN CORPUSCULAR HGB CONC 31.3 g/dL (33.0-36.5); MEAN CORPUSCULAR VOLUME 87.5 FL (78-98); MONOCYTES # (AUTO) 1.6 X10'3 (0-0.9); MONOCYTES % (AUTO) 10.6 % (2-12); NEUTROPHILS # (AUTO) 12.2 X10'3 (1.8-7.7); NEUTROPHILS % (AUTO) 81.7 % (42-75); PLATELET COUNT 263 X10'3 (140-440); RED CELL DISTRIBUTION WIDTH 19.9 % (11.5-14.5); WHITE BLOOD COUNT 14.9 X10'3 (4.5-11.0)
[2024-03-25 09:20] LABS: ALANINE AMINOTRANSFERASE 7 U/L (12-78); ALBUMIN/GLOBULIN RATIO 0.5 (1.1-1.5); ALKALINE PHOSPHATASE 104 IU/L (46-116); ANION GAP 11 (8-16); ASPARTATE AMINO TRANSFERASE 7 U/L (10-37); BILIRUBIN,TOTAL 0.5 MG/DL (0.1-1.0); BLOOD UREA NITROGEN 43 MG/DL (7-18); BUN/CREATININE RATIO 7.5 (10.0-20.0); CALCIUM 8.5 MG/DL (8.5-10.1); CHLORIDE 98 MMOL/L (99-107); GLUCOSE 92 MG/DL (70-104); MAGNESIUM 1.9 MG/DL (1.5-2.4); PHOSPHORUS 4.8 MG/DL (2.3-4.5); POTASSIUM 4.2 MMOL/L (3.5-5.1); SODIUM 135 MMOL/L (135-145); TOTAL CARBON DIOXIDE 26.1 MMOL/L (24-32); TOTAL PROTEIN 6.4 G/DL (6.4-8.2); eCRCL 12 ML/MIN; eGFR 10 ML/MIN
[2024-03-25] MEDS ORDERED: albuterol 2.5 MG/3 ML nebule NEB PRN (09:45)
[2024-03-25 09:50] LABS: ANISOCYTOSIS 2+; PLATELET ESTIMATE NORMAL; POLYCHROMASIA 1+
[2024-03-25] MEDS ORDERED: normal saline 1000ml 250 ML IV PRN (10:20)
[2024-03-25] MEDS: calcium acetate 667mg (PhosLO) capsule PO SCH (13:00)
[2024-03-25] MEDS: heparin 1,000unit/ml 10ml vial 10 ML IV ONE (15:47)
[2024-03-25] MEDS: heparin 1,000 units/ml 10ml inj HE ONE ×2 (15:48)
[2024-03-25] MEDS: EPOETIN ALFA-EPBX 20,000 UNIT/ML 1 ML MDV IV ONE (15:49)
[2024-03-25] MEDS ORDERED: acetaminophen 325mg tablet PO PRN (16:40)
[2024-03-25] MEDS: morphine 2 MG/ML inj. syringe IV PRN (16:52)
[2024-03-25] MEDS ORDERED: carvedilol 6.25mg tablet PO SCH (20:00)
[2024-03-25] MEDS ORDERED: [UNRECOGNIZED DRUG - OTHER] PO SCH (21:00)
[2024-03-25] MEDS: nystatin 15 GM powder TP SCH (21:12)
[2024-03-25] MEDS: pantoprazole 40mg Tablet.DR PO SCH (21:13)
[2024-03-25] MEDS: gabapentin 100mg capsule PO SCH (21:14)
[2024-03-25] MEDS: HYDROcodone/acetaminophen 5mg/325mg tablet PO PRN (21:17)
[2024-03-26 06:00] VITALS: BP 142/85; PULSE 85; RESP 15; TEMP 98.3; O2SAT 96
[2024-03-26] MEDS: duloxetine 30mg CAPSULE.DR PO SCH (07:51)
[2024-03-26] MEDS: tamsulosin 0.4mg capsule PO SCH (07:52)
[2024-03-26] MEDS: aspirin 325mg tablet PO SCH (07:52)
[2024-03-26] MEDS: ferrous gluconate 324mg tablet PO SCH (07:52)
[2024-03-26] MEDS ORDERED: duloxetine 30mg CAPSULE.DR PO SCH (08:00)
[2024-03-26] MEDS: non-formulary drug (Umeclidinium Brm/Vilanterol Tr (Anoro Ellipta 62.5-25 Mcg INH) 1 PUFFS PO SCH (08:00)
[2024-03-26] MEDS: fluticasone nasal spray 16GM bottle NS SCH (08:00)
[2024-03-26 08:16] LABS: BASOPHILS % (AUTO) 0.5 % (0-1); EOSINOPHILS # (AUTO) 0.2 X10'3 (0-0.9); EOSINOPHILS % (AUTO) 2.5 % (0-6); HEMATOCRIT 29.8 % (42.0-52.0); HEMOGLOBIN 9.6 g/dl (14.0-17.9); LYMPHOCYTES # (AUTO) 0.9 X10'3 (1.1-4.8); MEAN CORPUSCULAR HEMOGLOBIN 27.8 PG (27.0-31.0); MEAN CORPUSCULAR HGB CONC 32.1 g/dL (33.0-36.5); MEAN CORPUSCULAR VOLUME 86.5 FL (78-98); MEAN PLATELET VOLUME 6.5 FL (7.4-10.4); MONOCYTES # (AUTO) 0.9 X10'3 (0-0.9); MONOCYTES % (AUTO) 14.6 % (2-12); NEUTROPHILS # (AUTO) 4.2 X10'3 (1.8-7.7); NEUTROPHILS % (AUTO) 67.4 % (42-75); PLATELET COUNT 242 X10'3 (140-440); RED BLOOD COUNT 3.45 X10'6 (4.70-6.10); RED CELL DISTRIBUTION WIDTH 19.3 % (11.5-14.5); WHITE BLOOD COUNT 6.3 X10'3 (4.5-11.0)
[2024-03-26 08:48] LABS: ALANINE AMINOTRANSFERASE 20 U/L (12-78); ALBUMIN/GLOBULIN RATIO 0.4 (1.1-1.5); ALKALINE PHOSPHATASE 103 IU/L (46-116); ANION GAP 9 (8-16); ASPARTATE AMINO TRANSFERASE 27 U/L (10-37); BILIRUBIN,TOTAL 0.4 MG/DL (0.1-1.0); BLOOD UREA NITROGEN 28 MG/DL (7-18); BUN/CREATININE RATIO 6.9 (10.0-20.0); CALCIUM 8.7 MG/DL (8.5-10.1); CHLORIDE 97 MMOL/L (99-107); CREATININE 4.03 MG/DL (0.60-1.10); GLUCOSE 84 MG/DL (70-104); MAGNESIUM 1.9 MG/DL (1.5-2.4); PHOSPHORUS 3.8 MG/DL (2.3-4.5); PRO BRAIN NATRIURETIC PEPTIDE 4412 PG/ML (0-125); SODIUM 134 MMOL/L (135-145); TOTAL CARBON DIOXIDE 28.5 MMOL/L (24-32); TOTAL PROTEIN 6.5 G/DL (6.4-8.2); eCRCL 16 ML/MIN; eGFR 15 ML/MIN
[2024-03-26 10:00] VITALS: BP 106/52; PULSE 79; RESP 16; TEMP 98.1; O2SAT 96
[2024-03-26 18:00] VITALS: BP 110/69; PULSE 84; RESP 18; TEMP 97.3; O2SAT 97
[2024-03-26 22:00] VITALS: BP 122/65; PULSE 88; RESP 16; TEMP 98.2; O2SAT 97
[2024-03-27] VITALS (9 sets, daily range): BP systolic 93–128; BP diastolic 58–71; PULSE 80–96; RESP 15–18; TEMP 97.9–98.7; O2SAT 95–98
[2024-03-27] MEDS ORDERED: VANCOMYCIN LEVEL IV ONE (06:30)
[2024-03-27 06:34] LABS: BASOPHILS % (AUTO) 0.7 % (0-1); EOSINOPHILS # (AUTO) 0.2 X10'3 (0-0.9); EOSINOPHILS % (AUTO) 4.8 % (0-6); HEMATOCRIT 29.6 % (42.0-52.0); HEMOGLOBIN 9.3 g/dl (14.0-17.9); LYMPHOCYTES # (AUTO) 0.9 X10'3 (1.1-4.8); LYMPHOCYTES % (AUTO) 22.9 % (21-51); MEAN CORPUSCULAR HEMOGLOBIN 27.4 PG (27.0-31.0); MEAN CORPUSCULAR HGB CONC 31.4 g/dL (33.0-36.5); MEAN CORPUSCULAR VOLUME 87.4 FL (78-98); MEAN PLATELET VOLUME 6.3 FL (7.4-10.4); MONOCYTES # (AUTO) 0.7 X10'3 (0-0.9); MONOCYTES % (AUTO) 16.3 % (2-12); NEUTROPHILS # (AUTO) 2.3 X10'3 (1.8-7.7); NEUTROPHILS % (AUTO) 55.3 % (42-75); PLATELET COUNT 229 X10'3 (140-440); RED BLOOD COUNT 3.39 X10'6 (4.70-6.10); RED CELL DISTRIBUTION WIDTH 18.8 % (11.5-14.5); WHITE BLOOD COUNT 4.1 X10'3 (4.5-11.0)
[2024-03-27 06:37] LABS: ALANINE AMINOTRANSFERASE 28 U/L (12-78); ALBUMIN 1.9 G/DL (3.4-5.0); ALBUMIN/GLOBULIN RATIO 0.5 (1.1-1.5); ALKALINE PHOSPHATASE 94 IU/L (46-116); ANION GAP 6 (8-16); ASPARTATE AMINO TRANSFERASE 27 U/L (10-37); BILIRUBIN,TOTAL 0.3 MG/DL (0.1-1.0); BLOOD UREA NITROGEN 35 MG/DL (7-18); BUN/CREATININE RATIO 7.5 (10.0-20.0); CALCIUM 8.5 MG/DL (8.5-10.1); CHLORIDE 100 MMOL/L (99-107); CREATININE 4.68 MG/DL (0.60-1.10); GLUCOSE 102 MG/DL (70-104); MAGNESIUM 1.9 MG/DL (1.5-2.4); POTASSIUM 3.8 MMOL/L (3.5-5.1); SODIUM 134 MMOL/L (135-145); TOTAL CARBON DIOXIDE 27.6 MMOL/L (24-32); TOTAL PROTEIN 6.1 G/DL (6.4-8.2); eCRCL 14 ML/MIN; eGFR 12 ML/MIN
[2024-03-27 07:05] LABS: TOTAL CELLS COUNTED 100
[2024-03-27 07:06] LABS: ANISOCYTOSIS 2+; LARGE PLATELETS FEW; PLATELET ESTIMATE NORMAL
[2024-03-27] MEDS ORDERED: albumin (human) 25% 100ml IV 100 ML IV PRN (08:00)
[2024-03-27 08:55] LABS: HBSAG SCREEN Negative (Negative)
[2024-03-27] MEDS ORDERED: VANC25SO PO (10:27)
[2024-03-27] MEDS: heparin 1,000unit/ml 10ml vial 10 ML IV ONE (13:15)
[2024-03-27] MEDS: EPOETIN ALFA-EPBX 20,000 UNIT/ML 1 ML MDV IV ONE (14:52)
[2024-03-27] MEDS: heparin 1,000 units/ml 10ml inj HE ONE ×2 (14:56→14:57)
[2024-03-27] MEDS: heparin 1,000 units/ml 10ml inj IV ONE (15:00)
== END 2024-03-27 17:50 | disposition home health service (06) | DRG 871 ==
LOC: ER 04:52 → OBSVTOIN 08:27 → ED HOLD 08:27 → ORTHO 4S 10:08
PROVIDERS: ADMIT Internal Medicine; ATTEND Internal Medicine
PROC: 5A1D70Z Performance of Urinary Filtration, Intermittent, Less than 6 Hours Per Day (ICD-10-PCS; principal; 2024-03-25)
PROC: 5A1D70Z Performance of Urinary Filtration, Intermittent, Less than 6 Hours Per Day (ICD-10-PCS; 2024-03-27)
DX: A41.9 Sepsis, unspecified organism (principal); G93.41 Metabolic encephalopathy; N18.6 End stage renal disease; N13.6 Pyonephrosis; T83.518A Infection and inflammatory reaction due to other urinary catheter, initial encounter; I13.2 Hypertensive heart and chronic kidney disease with heart failure and with stage 5 chronic kidney disease, or end stage renal disease; N17.9 Acute kidney failure, unspecified; Z20.822 Contact with and (suspected) exposure to COVID-19; I50.9 Heart failure, unspecified; J44.9 Chronic obstructive pulmonary disease, unspecified; E11.22 Type 2 diabetes mellitus with diabetic chronic kidney disease; G89.29 Other chronic pain; M54.9 Dorsalgia, unspecified; D63.1 Anemia in chronic kidney disease; Y83.8 Other surgical procedures as the cause of abnormal reaction of the patient, or of later complication, without mention of misadventure at the time of the procedure; N40.0 Benign prostatic hyperplasia without lower urinary tract symptoms; K21.9 Gastro-esophageal reflux disease without esophagitis; F31.9 Bipolar disorder, unspecified; Z91.030 Bee allergy status; Z91.041 Radiographic dye allergy status; Z79.82 Long term (current) use of aspirin; Z79.899 Other long term (current) drug therapy; Z87.442 Personal history of urinary calculi; Z90.49 Acquired absence of other specified parts of digestive tract; Z86.73 Personal history of transient ischemic attack (TIA), and cerebral infarction without residual deficits; Z87.440 Personal history of urinary (tract) infections; Z99.2 Dependence on renal dialysis; Z82.3 Family history of stroke; Z83.3 Family history of diabetes mellitus; Y92.89 Other specified places as the place of occurrence of the external cause
CPT/HCPCS: 36415; 70450; 71045; 71250; 74176; 80048; 80053; 81001; 83605; 83735; 83880; 84100; 84145; 84484; 85007; 85008; 85025; 85651; 86140; 87040; 87077; 87081; 87088; 87186; 87340; 87502; 87503; 87811; 93005; 97161; 99285; A4314; A4615; A5200; A6213; A6258; A6449; A6590; E1594; G0257; G0378; J0131; J1644; J2185; J2270; J2543; J3370; J3490; J7030; J7040; Q4081

== ENCOUNTER 2024-04-08 17:25 | Emergency (ER) | payer BC, MEDICARE ==
[~2024-04-08] VITALS: Ht 172.7 cm; Wt 114.1 kg
[~2024-04-08 17:25] MED LIST changes: -CHOL200074 PO; -ONDA8TAB13 PO; +VANC25SO PO
[2024-04-08 18:44] LABS: HEMATOCRIT 32.6 % (42.0-52.0); MEAN CORPUSCULAR HEMOGLOBIN 27.6 PG (27.0-31.0); MEAN PLATELET VOLUME 6.3 FL (7.4-10.4); WHITE BLOOD COUNT 8.2 X10'3 (4.5-11.0)
[2024-04-08 18:46] LABS: BASOPHILS % (AUTO) 0.3 % (0-1); EOSINOPHILS # (AUTO) 0.1 X10'3 (0-0.9); EOSINOPHILS % (AUTO) 0.9 % (0-6); HEMOGLOBIN 10.4 g/dl (14.0-17.9); LYMPHOCYTES # (AUTO) 0.5 X10'3 (1.1-4.8); LYMPHOCYTES % (AUTO) 6.5 % (21-51); MEAN CORPUSCULAR HGB CONC 31.8 g/dL (33.0-36.5); MEAN CORPUSCULAR VOLUME 86.8 FL (78-98); MONOCYTES # (AUTO) 0.9 X10'3 (0-0.9); MONOCYTES % (AUTO) 10.3 % (2-12); NEUTROPHILS # (AUTO) 6.7 X10'3 (1.8-7.7); PLATELET COUNT 291 X10'3 (140-440); RED BLOOD COUNT 3.75 X10'6 (4.70-6.10); RED CELL DISTRIBUTION WIDTH 19.9 % (11.5-14.5)
[2024-04-08 19:06] LABS: APTT 31 SECONDS (22-32); INR 1.1 INR; PROTHROMBIN TIME 11.3 SECONDS (9.0-12.0)
[2024-04-08 19:07] LABS: ALANINE AMINOTRANSFERASE 11 U/L (12-78); ALBUMIN 2.4 G/DL (3.4-5.0); ALBUMIN/GLOBULIN RATIO 0.6 (1.1-1.5); ALKALINE PHOSPHATASE 129 IU/L (46-116); ANION GAP 7 (8-16); ASPARTATE AMINO TRANSFERASE 15 U/L (10-37); BILIRUBIN,TOTAL 0.3 MG/DL (0.1-1.0); BLOOD UREA NITROGEN 8 MG/DL (7-18); BUN/CREATININE RATIO 2.7 (10.0-20.0); CALCIUM 8.4 MG/DL (8.5-10.1); CHLORIDE 96 MMOL/L (99-107); CREATININE 2.92 MG/DL (0.60-1.10); GLUCOSE 84 MG/DL (70-104); POTASSIUM 3.7 MMOL/L (3.5-5.1); SODIUM 136 MMOL/L (135-145); TOTAL CARBON DIOXIDE 33.5 MMOL/L (24-32); TOTAL PROTEIN 6.7 G/DL (6.4-8.2); eCRCL 22 ML/MIN; eGFR 21 ML/MIN
[2024-04-08 19:19] LABS: FREE T4 (FREE THYROXINE) 0.79 NG/DL (0.73-1.40); LIPASE 19 U/L (16-77); MAGNESIUM 1.9 MG/DL (1.5-2.4); PRO BRAIN NATRIURETIC PEPTIDE 2467 PG/ML (0-125); THYROID STIMULATING HORMONE 0.37 ulU/ml (0.34-4.50)
[2024-04-08 20:10] LABS: ANISOCYTOSIS 2+; PLATELET ESTIMATE NORMAL
[2024-04-08 20:12] LABS: POLYCHROMASIA FEW; STOMATOCYTES 1+
[2024-04-08 20:19] LABS: BILIRUBIN,URINE NEGATIVE (Neg); CLARITY,URINE CLOUDY (Clear); COLOR,URINE YELLOW (Yellow); GLUCOSE, URINE NEGATIVE (Neg); KETONES,URINE NEGATIVE (Neg); LEUKOCYTE ESTERASE ,URINE LARGE (Neg); NITRITES, URINE NEGATIVE (Neg); OCCULT BLOOD,URINE SMALL (Neg); PH,URINE 7.5 (4.8-8.0); PROTEIN,URINE 30 mg/dl (Neg); UROBILINOGEN,URINE 0.2 E.U/dL (0.2-1.0)
[2024-04-08 20:24] LABS: UA COLLECTION TYPE CLN CATCH MIDSTREAM
[2024-04-08 20:25] LABS: BACTERIA,URINE 1+ /HPF (Neg); SQUAMOUS EPITHELIAL CELL,UR FEW /LPF (FEW); TRANSITIONAL EPI CELLS,URINE FEW /HPF; WBC,URINE TNTC /HPF (0-4)
[2024-04-08 20:26] LABS: RENAL CELLS, URINE FEW /HPF
[2024-04-08] MEDS: VANCOmycin 1250MG/NS 250ml Bag 250 ML IV ONE (21:38)
[2024-04-08 23:15] VITALS: BP 105/57; PULSE 94; RESP 19; TEMP 98.7; O2SAT 95
== END 2024-04-08 23:17 | disposition home or self-care (01) ==
LOC: ER 17:25
DX: N39.0 Urinary tract infection, site not specified (principal); I13.0 Hypertensive heart and chronic kidney disease with heart failure and stage 1 through stage 4 chronic kidney disease, or unspecified chronic kidney disease; I50.9 Heart failure, unspecified; N18.9 Chronic kidney disease, unspecified; K21.9 Gastro-esophageal reflux disease without esophagitis; F32.A Depression, unspecified; Z90.49 Acquired absence of other specified parts of digestive tract; Z72.89 Other problems related to lifestyle
CPT/HCPCS: 36415; 71045; 74176; 80053; 81001; 83605; 83690; 83735; 83880; 84145; 84439; 84443; 84484; 85008; 85025; 85610; 85730; 87040; 87088; 93005; 96365; 99285; J3370

== ENCOUNTER 2024-04-29 13:19 | Inpatient (IN) | payer BC, MEDICARE ==
[~2024-04-29] VITALS: Ht 171.4 cm; Wt 109.5 kg
[2024-04-29 13:47] LABS: BASOPHILS # (AUTO) 0.1 X10'3 (0-0.2); BASOPHILS % (AUTO) 0.4 % (0-1); EOSINOPHILS # (AUTO) 0.1 X10'3 (0-0.9); EOSINOPHILS % (AUTO) 0.5 % (0-6); HEMATOCRIT 33.3 % (42.0-52.0); HEMOGLOBIN 10.6 g/dl (14.0-17.9); LYMPHOCYTES # (AUTO) 0.6 X10'3 (1.1-4.8); LYMPHOCYTES % (AUTO) 4.5 % (21-51); MEAN CORPUSCULAR HEMOGLOBIN 27.7 PG (27.0-31.0); MEAN CORPUSCULAR HGB CONC 31.9 g/dL (33.0-36.5); MEAN PLATELET VOLUME 6.6 FL (7.4-10.4); MONOCYTES % (AUTO) 7.7 % (2-12); NEUTROPHILS # (AUTO) 10.8 X10'3 (1.8-7.7); NEUTROPHILS % (AUTO) 86.9 % (42-75); PLATELET COUNT 202 X10'3 (140-440); RED BLOOD COUNT 3.83 X10'6 (4.70-6.10); WHITE BLOOD COUNT 12.5 X10'3 (4.5-11.0)
[2024-04-29 14:06] LABS: ANISOCYTOSIS 2+; PLATELET ESTIMATE NORMAL
[2024-04-29 14:07] LABS: POIKILOCYTOSIS FEW; STOMATOCYTES 1+
[2024-04-29 14:21] LABS: ALBUMIN 2.5 G/DL (3.4-5.0); ANION GAP 6 (8-16); BLOOD UREA NITROGEN 45 MG/DL (7-18); BUN/CREATININE RATIO 7.3 (10.0-20.0); CALCIUM 9.2 MG/DL (8.5-10.1); CHLORIDE 97 MMOL/L (99-107); CREATININE 6.19 MG/DL (0.60-1.10); GLUCOSE 97 MG/DL (70-104); POTASSIUM 4.9 MMOL/L (3.5-5.1); PRO BRAIN NATRIURETIC PEPTIDE 2200 PG/ML (0-125); SODIUM 132 MMOL/L (135-145); TOTAL CARBON DIOXIDE 29.2 MMOL/L (24-32); eCRCL 10 ML/MIN; eGFR 9 ML/MIN
[2024-04-29] MEDS: MEROPENEM 1GM/NS 100ML IVPB 100 ML IV STA (14:43)
[2024-04-29 16:51] LABS: BILIRUBIN,URINE NEGATIVE (Neg); CLARITY,URINE CLOUDY (Clear); COLOR,URINE YELLOW (Yellow); GLUCOSE, URINE NEGATIVE (Neg); KETONES,URINE NEGATIVE (Neg); LEUKOCYTE ESTERASE ,URINE LARGE (Neg); NITRITES, URINE NEGATIVE (Neg); OCCULT BLOOD,URINE MODERATE (Neg); PH,URINE 7.5 (4.8-8.0); PROTEIN,URINE 100 mg/dl (Neg); UROBILINOGEN,URINE 0.2 E.U/dL (0.2-1.0)
[2024-04-29 16:56] LABS: UA COLLECTION TYPE CLN CATCH MIDSTREAM
[2024-04-29 17:12] LABS: SQUAMOUS EPITHELIAL CELL,UR MODERATE /LPF (FEW); WBC,URINE TNTC /HPF (0-4)
[2024-04-29 17:15] LABS: BACTERIA,URINE FEW /HPF (Neg); RBC,URINE 50-100 /HPF (0-2)
[2024-04-29] MEDS ORDERED: magnesium 4gm in 100ml NS 100 ML IV PRN (18:15)
[2024-04-29] MEDS ORDERED: magnesium Cl slow-release 64mg tablet PO PRN (18:15)
[2024-04-29] MEDS ORDERED: acetaminophen 325mg tablet PO PRN (18:15)
[2024-04-29] MEDS ORDERED: mag hydrox/Alum hydrox/simeth 30ml oral suspension PO PRN (18:15)
[2024-04-29] MEDS ORDERED: potassium Cl 40MEQ/1/2NS 520ml 520 ML IV PRN (18:15)
[2024-04-29] MEDS ORDERED: potassium Cl 20 mEq SR tablet PO PRN ×2 (18:15)
[2024-04-29] MEDS ORDERED: magnesium 2GM in 50ml NS 50 ML IV PRN (18:15)
[2024-04-29] MEDS ORDERED: ondansetron/PF 4mg/2ml inj IV PRN (18:15)
[2024-04-29] MEDS: K and/or MAG REPLACEMENT MC SCH (21:00)
[2024-04-29] MEDS: heparin, porcine 5000 units/ml vial SQ SCH (21:21)
[2024-04-29] MEDS: HYDROcodone/acetaminophen 5mg/325mg tablet PO PRN (22:18)
[2024-04-30] VITALS (15 sets, daily range): BP systolic 85–146; BP diastolic 47–75; PULSE 77–91; RESP 12–18; TEMP 96.9–100.5; O2SAT 93–100
[2024-04-30] MEDS ORDERED: normal saline 1000ml 250 ML IV PRN (06:55)
[2024-04-30 07:55] LABS: BASOPHILS % (AUTO) 0.2 % (0-1); EOSINOPHILS % (AUTO) 0.1 % (0-6); HEMATOCRIT 33.5 % (42.0-52.0); HEMOGLOBIN 10.4 g/dl (14.0-17.9); LYMPHOCYTES # (AUTO) 0.7 X10'3 (1.1-4.8); MEAN CORPUSCULAR HEMOGLOBIN 27.3 PG (27.0-31.0); MEAN CORPUSCULAR HGB CONC 31.1 g/dL (33.0-36.5); MEAN CORPUSCULAR VOLUME 87.9 FL (78-98); MEAN PLATELET VOLUME 6.8 FL (7.4-10.4); MONOCYTES # (AUTO) 1.4 X10'3 (0-0.9); MONOCYTES % (AUTO) 10.7 % (2-12); NEUTROPHILS # (AUTO) 10.9 X10'3 (1.8-7.7); PLATELET COUNT 172 X10'3 (140-440); RED BLOOD COUNT 3.81 X10'6 (4.70-6.10); RED CELL DISTRIBUTION WIDTH 20.1 % (11.5-14.5)
[2024-04-30] MEDS: EPOETIN ALFA-EPBX 20,000 UNIT/ML 1 ML MDV IV ONE (08:24)
[2024-04-30] MEDS: heparin 1,000unit/ml 10ml vial 10 ML IV ONE (08:26)
[2024-04-30] MEDS: heparin 1,000 units/ml 10ml inj HE ONE ×2 (08:26→08:27)
[2024-04-30 08:36] LABS: ALBUMIN 2.2 G/DL (3.4-5.0); ANION GAP 15 (8-16); BLOOD UREA NITROGEN 53 MG/DL (7-18); BUN/CREATININE RATIO 7.6 (10.0-20.0); CALCIUM 8.8 MG/DL (8.5-10.1); CHLORIDE 99 MMOL/L (99-107); CREATININE 6.99 MG/DL (0.60-1.10); GLUCOSE 83 MG/DL (70-104); MAGNESIUM 2.4 MG/DL (1.5-2.4); PHOSPHORUS 4.7 MG/DL (2.3-4.5); POTASSIUM 5.4 MMOL/L (3.5-5.1); SODIUM 136 MMOL/L (135-145); TOTAL CARBON DIOXIDE 22.4 MMOL/L (24-32); eCRCL 9 ML/MIN; eGFR 8 ML/MIN
[2024-04-30] MEDS: meropenem inj 500 MG in normal saline 100ml IV soln 100 ML IV SCH (11:12)
[2024-05-01 06:13] LABS: BASOPHILS % (AUTO) 0.5 % (0-1); EOSINOPHILS # (AUTO) 0.2 X10'3 (0-0.9); EOSINOPHILS % (AUTO) 2.4 % (0-6); HEMATOCRIT 33.6 % (42.0-52.0); HEMOGLOBIN 10.4 g/dl (14.0-17.9); LYMPHOCYTES # (AUTO) 1.2 X10'3 (1.1-4.8); LYMPHOCYTES % (AUTO) 17.7 % (21-51); MEAN CORPUSCULAR HEMOGLOBIN 27.1 PG (27.0-31.0); MEAN CORPUSCULAR VOLUME 87.3 FL (78-98); MEAN PLATELET VOLUME 6.9 FL (7.4-10.4); MONOCYTES % (AUTO) 14.5 % (2-12); NEUTROPHILS # (AUTO) 4.3 X10'3 (1.8-7.7); NEUTROPHILS % (AUTO) 64.9 % (42-75); PLATELET COUNT 197 X10'3 (140-440); RED BLOOD COUNT 3.85 X10'6 (4.70-6.10); RED CELL DISTRIBUTION WIDTH 20.1 % (11.5-14.5); WHITE BLOOD COUNT 6.6 X10'3 (4.5-11.0)
[2024-05-01 06:22] LABS: ALBUMIN 2.1 G/DL (3.4-5.0); ANION GAP 6 (8-16); BLOOD UREA NITROGEN 32 MG/DL (7-18); BUN/CREATININE RATIO 6.4 (10.0-20.0); CHLORIDE 98 MMOL/L (99-107); CREATININE 4.97 MG/DL (0.60-1.10); GLUCOSE 83 MG/DL (70-104); MAGNESIUM 2.3 MG/DL (1.5-2.4); PHOSPHORUS 4.4 MG/DL (2.3-4.5); POTASSIUM 3.8 MMOL/L (3.5-5.1); SODIUM 133 MMOL/L (135-145); eCRCL 13 ML/MIN; eGFR 12 ML/MIN
[2024-05-01 06:32] LABS: ANISOCYTOSIS 3+; PLATELET ESTIMATE NORMAL
[2024-05-01 06:33] LABS: POLYCHROMASIA FEW
[2024-05-01 06:35] LABS: TEAR DROP CELLS FEW
[2024-05-01] MEDS ORDERED: diazepam 5mg tablet PO PRN (10:05)
[2024-05-01] MEDS ORDERED: albuterol 2.5 MG/3 ML nebule NEB PRN (10:05)
[2024-05-01] MEDS: aspirin 325mg tablet PO SCH (10:58)
[2024-05-01] MEDS: tamsulosin 0.4mg capsule PO SCH (10:58)
[2024-05-01 16:50] LABS: HBSAG SCREEN Negative (Negative)
[2024-05-01 17:31] VITALS: BP 113/70; PULSE 112; RESP 14; TEMP 97; O2SAT 96
[2024-05-01] MEDS: pantoprazole 40mg Tablet.DR PO SCH (20:24)
[2024-05-01] MEDS: gabapentin 300mg capsule PO SCH (20:24)
[2024-05-01 20:25] VITALS: BP 124/78; PULSE 91
[2024-05-01] MEDS: carvedilol 6.25mg tablet PO SCH (20:25)
[2024-05-01 22:00] VITALS: BP 109/61; PULSE 91; RESP 16; TEMP 98.3; O2SAT 96
[2024-05-01] MEDS: oxyCODONE/APAP 10/325mg tablet PO PRN (23:10)
[2024-05-02] VITALS (12 sets, daily range): BP systolic 89–115; BP diastolic 50–71; PULSE 64–87; RESP 16–20; TEMP 96.9–98.3; O2SAT 96–98
[2024-05-02 07:56] LABS: BASOPHILS % (AUTO) 0.6 % (0-1); EOSINOPHILS # (AUTO) 0.2 X10'3 (0-0.9); EOSINOPHILS % (AUTO) 3.7 % (0-6); HEMATOCRIT 31.6 % (42.0-52.0); LYMPHOCYTES # (AUTO) 1.2 X10'3 (1.1-4.8); LYMPHOCYTES % (AUTO) 26.7 % (21-51); MEAN CORPUSCULAR HEMOGLOBIN 27.3 PG (27.0-31.0); MEAN CORPUSCULAR HGB CONC 31.5 g/dL (33.0-36.5); MEAN CORPUSCULAR VOLUME 86.8 FL (78-98); MEAN PLATELET VOLUME 6.6 FL (7.4-10.4); MONOCYTES % (AUTO) 22.1 % (2-12); NEUTROPHILS % (AUTO) 46.9 % (42-75); PLATELET COUNT 219 X10'3 (140-440); RED BLOOD COUNT 3.65 X10'6 (4.70-6.10); RED CELL DISTRIBUTION WIDTH 19.7 % (11.5-14.5); WHITE BLOOD COUNT 4.3 X10'3 (4.5-11.0)
[2024-05-02 08:12] LABS: ANION GAP 10 (8-16); BLOOD UREA NITROGEN 47 MG/DL (7-18); BUN/CREATININE RATIO 7.2 (10.0-20.0); CALCIUM 8.7 MG/DL (8.5-10.1); CHLORIDE 101 MMOL/L (99-107); CREATININE 6.56 MG/DL (0.60-1.10); GLUCOSE 87 MG/DL (70-104); MAGNESIUM 2.3 MG/DL (1.5-2.4); PHOSPHORUS 5.8 MG/DL (2.3-4.5); POTASSIUM 4.6 MMOL/L (3.5-5.1); SODIUM 137 MMOL/L (135-145); TOTAL CARBON DIOXIDE 25.9 MMOL/L (24-32); eCRCL 10 ML/MIN; eGFR 8 ML/MIN
[2024-05-02] MEDS: acetaminophen 325mg tablet PO PRN (08:44)
[2024-05-02] MEDS ORDERED: normal saline 1000ml 250 ML IV PRN (08:55)
[2024-05-02] MEDS: fluticasone nasal spray 16GM bottle NS SCH (10:20)
[2024-05-02] MEDS: EPOETIN ALFA-EPBX 20,000 UNIT/ML 1 ML MDV IV ONE (15:19)
[2024-05-02] MEDS: heparin 1,000 units/ml 10ml inj HE ONE ×2 (15:21)
[2024-05-02] MEDS: heparin 1,000unit/ml 10ml vial 10 ML IV ONE (15:22)
[2024-05-02] MEDS: gabapentin 300mg capsule PO SCH (20:39)
[2024-05-03 05:00] VITALS: BP_SYST 110; BP_SYST 136; BP_DIAS 60; BP_DIAS 80; PULSE 82; PULSE 91; RESP 18; RESP 19; TEMP 96.6; TEMP 97; O2SAT 94; O2SAT 99
[2024-05-03 06:39] LABS: BASOPHILS % (AUTO) 0.8 % (0-1); EOSINOPHILS # (AUTO) 0.2 X10'3 (0-0.9); HEMATOCRIT 31.6 % (42.0-52.0); LYMPHOCYTES # (AUTO) 1.6 X10'3 (1.1-4.8); MEAN PLATELET VOLUME 6.6 FL (7.4-10.4); PLATELET COUNT 219 X10'3 (140-440)
[2024-05-03 06:42] LABS: EOSINOPHILS % (AUTO) 4.4 % (0-6); HEMOGLOBIN 10.1 g/dl (14.0-17.9); LYMPHOCYTES % (AUTO) 31.3 % (21-51); MEAN CORPUSCULAR HEMOGLOBIN 27.7 PG (27.0-31.0); MEAN CORPUSCULAR HGB CONC 31.8 g/dL (33.0-36.5); MEAN CORPUSCULAR VOLUME 87.1 FL (78-98); MONOCYTES # (AUTO) 1.2 X10'3 (0-0.9); MONOCYTES % (AUTO) 23.3 % (2-12); NEUTROPHILS % (AUTO) 40.2 % (42-75); RED BLOOD COUNT 3.63 X10'6 (4.70-6.10); RED CELL DISTRIBUTION WIDTH 19.3 % (11.5-14.5)
[2024-05-03 07:03] LABS: ANION GAP 7 (8-16); BLOOD UREA NITROGEN 25 MG/DL (7-18); BUN/CREATININE RATIO 5.3 (10.0-20.0); CALCIUM 8.5 MG/DL (8.5-10.1); CHLORIDE 101 MMOL/L (99-107); CREATININE 4.75 MG/DL (0.60-1.10); GLUCOSE 95 MG/DL (70-104); MAGNESIUM 2.1 MG/DL (1.5-2.4); PHOSPHORUS 4.2 MG/DL (2.3-4.5); POTASSIUM 4.5 MMOL/L (3.5-5.1); SODIUM 135 MMOL/L (135-145); TOTAL CARBON DIOXIDE 27.3 MMOL/L (24-32); eCRCL 14 ML/MIN; eGFR 12 ML/MIN
[2024-05-03 07:28] LABS: ANISOCYTOSIS 2+; PLATELET ESTIMATE NORMAL; TOTAL CELLS COUNTED 100
[2024-05-03 08:00] VITALS: RESP 16; O2SAT 94
[2024-05-03 08:10] VITALS: BP 120/73; PULSE 70; RESP 18; O2SAT 94
[2024-05-03 09:54] LABS: ALANINE AMINOTRANSFERASE 15 U/L (12-78); ALBUMIN/GLOBULIN RATIO 0.4 (1.1-1.5); ALKALINE PHOSPHATASE 92 IU/L (46-116); ASPARTATE AMINO TRANSFERASE 16 U/L (10-37); BILIRUBIN,DIRECT 0.1 MG/DL (0-0.3); BILIRUBIN,TOTAL 0.3 MG/DL (0.1-1.0); TOTAL PROTEIN 7.2 G/DL (6.4-8.2)
[2024-05-03 10:33] VITALS: BP 106/45; PULSE 74; RESP 20; TEMP 97.6; O2SAT 98
[2024-05-03 18:00] VITALS: BP 139/71; PULSE 70; RESP 18; TEMP 97.9; O2SAT 96
[2024-05-03 22:00] VITALS: BP 149/2; PULSE 73; RESP 16; TEMP 98.3; O2SAT 94
[2024-05-04 06:46] VITALS: BP 122/79; PULSE 76; RESP 16; TEMP 97.3; O2SAT 98
[2024-05-04 08:00] VITALS: RESP 18; O2SAT 99
[2024-05-04 08:14] LABS: BASOPHILS % (AUTO) 0.7 % (0-1); EOSINOPHILS # (AUTO) 0.3 X10'3 (0-0.9); EOSINOPHILS % (AUTO) 6.4 % (0-6); HEMATOCRIT 32.1 % (42.0-52.0); HEMOGLOBIN 10.3 g/dl (14.0-17.9); LYMPHOCYTES # (AUTO) 1.4 X10'3 (1.1-4.8); LYMPHOCYTES % (AUTO) 29.1 % (21-51); MEAN CORPUSCULAR HEMOGLOBIN 27.5 PG (27.0-31.0); MEAN CORPUSCULAR HGB CONC 31.9 g/dL (33.0-36.5); MEAN CORPUSCULAR VOLUME 86.2 FL (78-98); MEAN PLATELET VOLUME 6.6 FL (7.4-10.4); MONOCYTES # (AUTO) 0.7 X10'3 (0-0.9); MONOCYTES % (AUTO) 14.8 % (2-12); NEUTROPHILS # (AUTO) 2.4 X10'3 (1.8-7.7); PLATELET COUNT 220 X10'3 (140-440); RED BLOOD COUNT 3.73 X10'6 (4.70-6.10); RED CELL DISTRIBUTION WIDTH 18.8 % (11.5-14.5); WHITE BLOOD COUNT 4.9 X10'3 (4.5-11.0)
[2024-05-04 08:42] LABS: ALBUMIN 2.1 G/DL (3.4-5.0); ANION GAP 8 (8-16); BLOOD UREA NITROGEN 42 MG/DL (7-18); BUN/CREATININE RATIO 7.5 (10.0-20.0); CALCIUM 8.9 MG/DL (8.5-10.1); CHLORIDE 100 MMOL/L (99-107); CREATININE 5.62 MG/DL (0.60-1.10); GLUCOSE 86 MG/DL (70-104); MAGNESIUM 2.1 MG/DL (1.5-2.4); PHOSPHORUS 5.2 MG/DL (2.3-4.5); POTASSIUM 4.9 MMOL/L (3.5-5.1); SODIUM 135 MMOL/L (135-145); TOTAL CARBON DIOXIDE 27.1 MMOL/L (24-32); eCRCL 11 ML/MIN; eGFR 10 ML/MIN
[2024-05-04] MEDS: NUT.TX.IMP.RENAL FXN,LAC-REDUC (Nepro) 237 ML VANILLA PO SCH (17:40)
[2024-05-04 18:00] VITALS: BP 115/68; PULSE 78; RESP 20; TEMP 97.6; O2SAT 98
[2024-05-04 20:00] VITALS: RESP 18; O2SAT 99
[2024-05-04 22:00] VITALS: BP_SYST 110; BP_SYST 120; BP_DIAS 58; BP_DIAS 59; PULSE 78; PULSE 82; RESP 18; TEMP 96.1; TEMP 97.8; O2SAT 95; O2SAT 97
[2024-05-05] VITALS (10 sets, daily range): BP systolic 96–118; BP diastolic 44–74; PULSE 66–83; RESP 16–18; TEMP 97.1–97.5; O2SAT 95–98
[2024-05-05 07:17] LABS: HEMATOCRIT 30.1 % (42.0-52.0); HEMOGLOBIN 9.4 g/dl (14.0-17.9); MEAN CORPUSCULAR HEMOGLOBIN 27.1 PG (27.0-31.0); MEAN CORPUSCULAR HGB CONC 31.3 g/dL (33.0-36.5); MEAN CORPUSCULAR VOLUME 86.6 FL (78-98); MEAN PLATELET VOLUME 6.4 FL (7.4-10.4); PLATELET COUNT 240 X10'3 (140-440); RED BLOOD COUNT 3.48 X10'6 (4.70-6.10); RED CELL DISTRIBUTION WIDTH 19.1 % (11.5-14.5); WHITE BLOOD COUNT 4.9 X10'3 (4.5-11.0)
[2024-05-05] MEDS: heparin 1,000 units/ml 10ml inj HE ONE ×2 (07:18→09:10)
[2024-05-05] MEDS: heparin 1,000unit/ml 10ml vial 10 ML IV ONE (07:18)
[2024-05-05] MEDS: heparin 1,000 units/ml 10ml inj IV ONE (07:19)
[2024-05-05] MEDS ORDERED: albumin (human) 25% 100ml IV 100 ML IV PRN (08:00)
[2024-05-05] MEDS: EPOETIN ALFA-EPBX 20,000 UNIT/ML 1 ML MDV IV ONE (09:09)
== END 2024-05-05 16:05 | disposition home or self-care (01) | DRG 871 ==
LOC: ER 13:20 → ED HOLD 18:16 → ORTHO 4S 04-30 01:32
PROVIDERS: ADMIT Family Medicine; ATTEND Family Medicine
PROC: 5A1D70Z Performance of Urinary Filtration, Intermittent, Less than 6 Hours Per Day (ICD-10-PCS; principal; 2024-04-30)
PROC: 5A1D70Z Performance of Urinary Filtration, Intermittent, Less than 6 Hours Per Day (ICD-10-PCS; 2024-05-02)
PROC: 5A1D70Z Performance of Urinary Filtration, Intermittent, Less than 6 Hours Per Day (ICD-10-PCS; 2024-05-05)
DX: A41.50 Gram-negative sepsis, unspecified (principal); G93.41 Metabolic encephalopathy; N18.6 End stage renal disease; I13.2 Hypertensive heart and chronic kidney disease with heart failure and with stage 5 chronic kidney disease, or end stage renal disease; N39.0 Urinary tract infection, site not specified; Z16.12 Extended spectrum beta lactamase (ESBL) resistance; Z16.24 Resistance to multiple antibiotics; E11.22 Type 2 diabetes mellitus with diabetic chronic kidney disease; E11.610 Type 2 diabetes mellitus with diabetic neuropathic arthropathy; G89.4 Chronic pain syndrome; I50.9 Heart failure, unspecified; J44.9 Chronic obstructive pulmonary disease, unspecified; N40.0 Benign prostatic hyperplasia without lower urinary tract symptoms; K21.9 Gastro-esophageal reflux disease without esophagitis; W18.39XA Other fall on same level, initial encounter; B96.1 Klebsiella pneumoniae [K. pneumoniae] as the cause of diseases classified elsewhere; E66.01 Morbid (severe) obesity due to excess calories; Z80.3 Family history of malignant neoplasm of breast; Z82.3 Family history of stroke; Z83.3 Family history of diabetes mellitus; Z86.19 Personal history of other infectious and parasitic diseases; Z86.73 Personal history of transient ischemic attack (TIA), and cerebral infarction without residual deficits; Z87.442 Personal history of urinary calculi; Z90.49 Acquired absence of other specified parts of digestive tract; Z99.2 Dependence on renal dialysis; Z87.440 Personal history of urinary (tract) infections; Z68.37 Body mass index [BMI] 37.0-37.9, adult; Y93.89 Activity, other specified; Y92.89 Other specified places as the place of occurrence of the external cause; Y99.8 Other external cause status
CPT/HCPCS: 36415; 70450; 71045; 73030; 73130; 76770; 80048; 80076; 81001; 82140; 83605; 83735; 83880; 84100; 84145; 84484; 85007; 85008; 85025; 85027; 87040; 87077; 87081; 87088; 87186; 87340; 93005; 96365; 99285; A4615; A6212; A6213; A6250; A6258; A6449; A6590; C1758; E1594; G0257; G0378; J1644; J2185; J3490; J7030; Q4081

== ENCOUNTER 2024-05-12 11:15 | Emergency (ER) | payer BC, MEDICARE ==
[~2024-05-12] VITALS: Ht 172.7 cm; Wt 113.6 kg
[~2024-05-12 11:15] MED LIST changes: -VANC25SO PO
[2024-05-12] MEDS: acetaminophen 325mg tablet PO ONE (13:39)
[2024-05-12 14:49] VITALS: BP 133/75; PULSE 72; RESP 16; TEMP 98; O2SAT 97
== END 2024-05-12 14:51 | disposition home or self-care (01) ==
LOC: ER 11:16
DX: T14.90XA Injury, unspecified, initial encounter (principal); J44.9 Chronic obstructive pulmonary disease, unspecified; K21.9 Gastro-esophageal reflux disease without esophagitis; I13.2 Hypertensive heart and chronic kidney disease with heart failure and with stage 5 chronic kidney disease, or end stage renal disease; N18.6 End stage renal disease; I50.9 Heart failure, unspecified; G89.29 Other chronic pain; F32.A Depression, unspecified; Z90.49 Acquired absence of other specified parts of digestive tract; Z98.890 Other specified postprocedural states; Z72.89 Other problems related to lifestyle; F17.210 Nicotine dependence, cigarettes, uncomplicated; Z91.030 Bee allergy status; Z91.041 Radiographic dye allergy status; Z91.018 Allergy to other foods; Z79.82 Long term (current) use of aspirin; Z79.899 Other long term (current) drug therapy; Z79.51 Long term (current) use of inhaled steroids; W18.30XA Fall on same level, unspecified, initial encounter; Y93.89 Activity, other specified; Y92.89 Other specified places as the place of occurrence of the external cause; Y99.8 Other external cause status
CPT/HCPCS: 70450; 71100; 99284

== ENCOUNTER 2024-05-31 12:41 | Inpatient (IN) | payer BC, MEDICARE ==
[~2024-05-31] VITALS: Ht 175.3 cm; Wt 118.0 kg
[2024-05-31 13:18] LABS: BILIRUBIN,URINE NEGATIVE (Neg); CLARITY,URINE CLOUDY (Clear); COLOR,URINE YELLOW (Yellow); GLUCOSE, URINE NEGATIVE (Neg); KETONES,URINE NEGATIVE (Neg); LEUKOCYTE ESTERASE ,URINE LARGE (Neg); NITRITES, URINE NEGATIVE (Neg); OCCULT BLOOD,URINE LARGE (Neg); PH,URINE 7.5 (4.8-8.0); PROTEIN,URINE 100 mg/dl (Neg); UROBILINOGEN,URINE 0.2 E.U/dL (0.2-1.0)
[2024-05-31 13:20] LABS: UA COLLECTION TYPE NON-SPECIFIED
[2024-05-31 13:23] LABS: BASOPHILS % (AUTO) 0.2 % (0-1); EOSINOPHILS % (AUTO) 0.2 % (0-6); HEMATOCRIT 35.5 % (42.0-52.0); HEMOGLOBIN 11.1 g/dl (14.0-17.9); LYMPHOCYTES # (AUTO) 0.7 X10'3 (1.1-4.8); LYMPHOCYTES % (AUTO) 6.8 % (21-51); MEAN CORPUSCULAR HEMOGLOBIN 28.7 PG (27.0-31.0); MEAN CORPUSCULAR HGB CONC 31.2 g/dL (33.0-36.5); MEAN CORPUSCULAR VOLUME 92.1 FL (78-98); MEAN PLATELET VOLUME 6.4 FL (7.4-10.4); MONOCYTES # (AUTO) 1.1 X10'3 (0-0.9); MONOCYTES % (AUTO) 11.1 % (2-12); NEUTROPHILS # (AUTO) 8.2 X10'3 (1.8-7.7); NEUTROPHILS % (AUTO) 81.7 % (42-75); PLATELET COUNT 185 X10'3 (140-440); RED BLOOD COUNT 3.86 X10'6 (4.70-6.10); RED CELL DISTRIBUTION WIDTH 20.5 % (11.5-14.5); WHITE BLOOD COUNT 10.1 X10'3 (4.5-11.0)
[2024-05-31 13:27] LABS: ALBUMIN 2.5 G/DL (3.4-5.0); ANION GAP 13 (8-16); BLOOD UREA NITROGEN 55 MG/DL (7-18); BUN/CREATININE RATIO 7.6 (10.0-20.0); CALCIUM 9.4 MG/DL (8.5-10.1); CHLORIDE 101 MMOL/L (99-107); CREATININE 7.26 MG/DL (0.60-1.10); GLUCOSE 117 MG/DL (70-104); POTASSIUM 5.2 MMOL/L (3.5-5.1); SODIUM 140 MMOL/L (135-145); TOTAL CARBON DIOXIDE 25.8 MMOL/L (24-32); eCRCL 9 ML/MIN; eGFR 7 ML/MIN
[2024-05-31 13:28] LABS: BACTERIA,URINE 1+ /HPF (Neg); MUCUS STRANDS NONE SEEN /LPF (Neg); RBC,URINE TNTC /HPF (0-2); SQUAMOUS EPITHELIAL CELL,UR FEW /LPF (FEW); TRANSITIONAL EPI CELLS,URINE FEW /HPF; WBC,URINE TNTC /HPF (0-4)
[2024-05-31 13:29] LABS: WBC CLUMPS,URINE MANY /HPF (NEGATIVE)
[2024-05-31 13:37] LABS: PLATELET ESTIMATE NORMAL
[2024-05-31 13:38] LABS: ANISOCYTOSIS 3+; ELLIPTOCYTES FEW; TEAR DROP CELLS FEW
[2024-05-31] MEDS: acetaminophen 325mg tablet PO ONE (13:44)
[2024-05-31] MEDS: CefTRIAXone/D5W-Rocephin 1gm 50 ML IV ONE (14:21)
[2024-05-31] MEDS ORDERED: cefepime 1GM/NS ADD-VANTAGE 100 ML IV ONE (14:55)
[2024-05-31] MEDS ORDERED: mag hydrox/Alum hydrox/simeth 30ml oral suspension PO PRN (15:10)
[2024-05-31] MEDS ORDERED: ondansetron/PF 4mg/2ml inj IV PRN (15:10)
[2024-05-31] MEDS ORDERED: potassium Cl 40MEQ/1/2NS 520ml 520 ML IV PRN (15:10)
[2024-05-31] MEDS ORDERED: potassium Cl 20 mEq SR tablet PO PRN ×2 (15:10)
[2024-05-31] MEDS ORDERED: magnesium Cl slow-release 64mg tablet PO PRN (15:10)
[2024-05-31] MEDS ORDERED: magnesium sulf-water 4G/100mL 100 ML IV PRN (15:10)
[2024-05-31] MEDS ORDERED: magnesium hydroxide 30ml (MOM) UD suspension PO PRN (15:10)
[2024-05-31] MEDS ORDERED: magnesium sulf-water 2g/50mL 50 ML IV PRN (15:10)
[2024-05-31] MEDS: vancomycin/NS 1 GM ADD-VANTAGE 250 ML IV ONE (15:22)
[2024-05-31 18:00] VITALS: BP 111/57; PULSE 86; RESP 19; TEMP 97.8; O2SAT 94
[2024-05-31 18:14] LABS: ABG BASE EXCESS 1.3 mmol/L (-2.0-2.0); ABG HCO3 25.6 mmol/L (22.0-26.0); ABG OXYGEN SATURATION 90.7 % (94-97); ABG PCO2 (T) 39.6 mmHg (35.0-48.0); ABG PH (T) 7.429 (7.340-7.440); ABG PO2 (T) 59.8 mmHg (75.0-100.0); FHHb 9.2 % (0.0-5.0); FMetHb 0.3 % (0.0-1.5); FO2Hb 89.5 % (94-97); TOTAL HEMOGLOBIN 10.8 G/dl (14.0-17.9)
[2024-05-31] MEDS: K and/or MAG REPLACEMENT MC SCH (19:05)
[2024-05-31] MEDS: docusate sod 100mg capsule PO SCH (19:51)
[2024-05-31 22:00] VITALS: BP 126/60; PULSE 104; RESP 19; TEMP 101.1; O2SAT 95
[2024-05-31] MEDS: acetaminophen 325mg tablet PO PRN (22:06)
[2024-05-31 22:22] VITALS: RESP 18; O2SAT 94
[2024-05-31 23:00] VITALS: PULSE 101; TEMP 100
[2024-06-01] VITALS (16 sets, daily range): BP systolic 85–118; BP diastolic 42–65; PULSE 71–92; RESP 16–22; TEMP 97.9–101.1; O2SAT 94–99
[2024-06-01] MEDS: MEROPENEM 1GM/NS 100ML IVPB 100 ML IV SCH (00:26)
[2024-06-01 09:11] LABS: BASOPHILS % (AUTO) 0.2 % (0-1); EOSINOPHILS % (AUTO) 0.3 % (0-6); HEMATOCRIT 33.4 % (42.0-52.0); HEMOGLOBIN 10.4 g/dl (14.0-17.9); LYMPHOCYTES # (AUTO) 1.1 X10'3 (1.1-4.8); LYMPHOCYTES % (AUTO) 10.3 % (21-51); MEAN CORPUSCULAR HEMOGLOBIN 28.6 PG (27.0-31.0); MEAN CORPUSCULAR HGB CONC 31.3 g/dL (33.0-36.5); MEAN CORPUSCULAR VOLUME 91.3 FL (78-98); MEAN PLATELET VOLUME 6.7 FL (7.4-10.4); MONOCYTES # (AUTO) 1.6 X10'3 (0-0.9); MONOCYTES % (AUTO) 15.2 % (2-12); PLATELET COUNT 155 X10'3 (140-440); RED BLOOD COUNT 3.66 X10'6 (4.70-6.10); RED CELL DISTRIBUTION WIDTH 19.4 % (11.5-14.5); WHITE BLOOD COUNT 10.9 X10'3 (4.5-11.0)
[2024-06-01 09:18] LABS: ALBUMIN/GLOBULIN RATIO 0.5 (1.1-1.5); ALKALINE PHOSPHATASE 119 IU/L (46-116); ANION GAP 9 (8-16); ASPARTATE AMINO TRANSFERASE 12 U/L (10-37); BILIRUBIN,TOTAL 0.5 MG/DL (0.1-1.0); BLOOD UREA NITROGEN 63 MG/DL (7-18); BUN/CREATININE RATIO 7.7 (10.0-20.0); CALCIUM 8.8 MG/DL (8.5-10.1); CHLORIDE 101 MMOL/L (99-107); CREATININE 8.17 MG/DL (0.60-1.10); GLUCOSE 90 MG/DL (70-104); POTASSIUM 5.2 MMOL/L (3.5-5.1); SODIUM 138 MMOL/L (135-145); TOTAL PROTEIN 6.4 G/DL (6.4-8.2); eCRCL 8 ML/MIN; eGFR 7 ML/MIN
[2024-06-01 09:38] LABS: ALANINE AMINOTRANSFERASE 16 U/L (12-78)
[2024-06-01 10:13] LABS: ANISOCYTOSIS 2+; PLATELET ESTIMATE NORMAL; TOTAL CELLS COUNTED 100
[2024-06-01 10:14] LABS: POLYCHROMASIA FEW
[2024-06-01] MEDS: albumin (human) 25% 100ml IV 100 ML IV PRN (11:42)
[2024-06-01] MEDS: heparin 1,000 units/ml 10ml inj IV ONE (12:38)
[2024-06-01] MEDS: heparin 1,000 units/ml 10ml inj HE ONE ×2 (12:38→12:39)
[2024-06-01] MEDS ORDERED: diazepam 5mg tablet PO PRN (15:20)
[2024-06-01] MEDS: duloxetine 30mg CAPSULE.DR PO SCH (20:27)
[2024-06-01] MEDS: oxyCODONE/APAP 10/325mg tablet PO PRN (20:29)
[2024-06-01] MEDS: carvedilol 6.25mg tablet PO SCH (20:32)
[2024-06-01] MEDS: gabapentin 300mg capsule PO SCH (21:32)
[2024-06-02] MEDS: acetaminophen 325mg tablet PO PRN (00:45)
[2024-06-02 06:00] VITALS: BP 108/46; PULSE 76; RESP 16; TEMP 98.3; O2SAT 95
[2024-06-02 07:40] LABS: BASOPHILS % (AUTO) 0.3 % (0-1); EOSINOPHILS # (AUTO) 0.2 X10'3 (0-0.9); EOSINOPHILS % (AUTO) 2.1 % (0-6); HEMATOCRIT 32.3 % (42.0-52.0); HEMOGLOBIN 10.3 g/dl (14.0-17.9); LYMPHOCYTES # (AUTO) 0.7 X10'3 (1.1-4.8); LYMPHOCYTES % (AUTO) 9.9 % (21-51); MEAN CORPUSCULAR HEMOGLOBIN 28.7 PG (27.0-31.0); MEAN CORPUSCULAR HGB CONC 31.8 g/dL (33.0-36.5); MEAN CORPUSCULAR VOLUME 90.2 FL (78-98); MEAN PLATELET VOLUME 6.6 FL (7.4-10.4); MONOCYTES # (AUTO) 1.1 X10'3 (0-0.9); MONOCYTES % (AUTO) 14.7 % (2-12); NEUTROPHILS # (AUTO) 5.3 X10'3 (1.8-7.7); PLATELET COUNT 150 X10'3 (140-440); RED BLOOD COUNT 3.58 X10'6 (4.70-6.10); RED CELL DISTRIBUTION WIDTH 19.7 % (11.5-14.5); WHITE BLOOD COUNT 7.3 X10'3 (4.5-11.0)
[2024-06-02 07:52] LABS: ALANINE AMINOTRANSFERASE 9 U/L (12-78); ALBUMIN 2.2 G/DL (3.4-5.0); ALBUMIN/GLOBULIN RATIO 0.5 (1.1-1.5); ALKALINE PHOSPHATASE 110 IU/L (46-116); ANION GAP 11 (8-16); ASPARTATE AMINO TRANSFERASE 10 U/L (10-37); BILIRUBIN,TOTAL 0.5 MG/DL (0.1-1.0); BLOOD UREA NITROGEN 41 MG/DL (7-18); BUN/CREATININE RATIO 7.4 (10.0-20.0); CALCIUM 9.1 MG/DL (8.5-10.1); CHLORIDE 100 MMOL/L (99-107); CREATININE 5.56 MG/DL (0.60-1.10); GLUCOSE 83 MG/DL (70-104); POTASSIUM 4.5 MMOL/L (3.5-5.1); SODIUM 137 MMOL/L (135-145); TOTAL CARBON DIOXIDE 26.5 MMOL/L (24-32); TOTAL PROTEIN 6.8 G/DL (6.4-8.2); eCRCL 12 ML/MIN; eGFR 10 ML/MIN
[2024-06-02] MEDS: tamsulosin 0.4mg capsule PO SCH (07:56)
[2024-06-02] MEDS: fluticasone nasal spray 16GM bottle NS SCH (07:57)
[2024-06-02] MEDS: pantoprazole 40mg Tablet.DR PO SCH (07:57)
[2024-06-02 08:00] VITALS: RESP 16; O2SAT 95
[2024-06-02 10:00] VITALS: BP 107/52; PULSE 94; RESP 16; TEMP 98.7; O2SAT 96
[2024-06-02 18:00] VITALS: BP 106/57; PULSE 97; RESP 16; TEMP 98.4; O2SAT 92
[2024-06-02 20:00] VITALS: RESP 16
[2024-06-02 22:00] VITALS: BP 94/53; PULSE 83; RESP 16; TEMP 98.3; O2SAT 95
[2024-06-02] MEDS: gabapentin 100mg capsule PO SCH (23:07)
[2024-06-03] VITALS (10 sets, daily range): BP systolic 87–110; BP diastolic 41–87; PULSE 75–99; RESP 16–20; TEMP 98.1; O2SAT 91–100
[2024-06-03 06:56] LABS: HEMATOCRIT 33.1 % (42.0-52.0); HEMOGLOBIN 10.6 g/dl (14.0-17.9); LYMPHOCYTES # (AUTO) 0.4 X10'3 (1.1-4.8); MONOCYTES # (AUTO) 0.9 X10'3 (0-0.9)
[2024-06-03 06:58] LABS: BASOPHILS % (AUTO) 0.2 % (0-1); EOSINOPHILS % (AUTO) 0.7 % (0-6); LYMPHOCYTES % (AUTO) 8.3 % (21-51); MEAN CORPUSCULAR HEMOGLOBIN 28.4 PG (27.0-31.0); MEAN CORPUSCULAR HGB CONC 32.1 g/dL (33.0-36.5); MEAN CORPUSCULAR VOLUME 88.4 FL (78-98); MEAN PLATELET VOLUME 6.7 FL (7.4-10.4); MONOCYTES % (AUTO) 21.2 % (2-12); NEUTROPHILS % (AUTO) 69.6 % (42-75); PLATELET COUNT 159 X10'3 (140-440); RED BLOOD COUNT 3.74 X10'6 (4.70-6.10); RED CELL DISTRIBUTION WIDTH 18.5 % (11.5-14.5); WHITE BLOOD COUNT 4.3 X10'3 (4.5-11.0)
[2024-06-03 07:10] LABS: ALANINE AMINOTRANSFERASE 16 U/L (12-78); ALBUMIN 2.1 G/DL (3.4-5.0); ALBUMIN/GLOBULIN RATIO 0.4 (1.1-1.5); ALKALINE PHOSPHATASE 115 IU/L (46-116); ANION GAP 8 (8-16); ASPARTATE AMINO TRANSFERASE 16 U/L (10-37); BILIRUBIN,TOTAL 0.4 MG/DL (0.1-1.0); BLOOD UREA NITROGEN 51 MG/DL (7-18); BUN/CREATININE RATIO 7.6 (10.0-20.0); CALCIUM 8.8 MG/DL (8.5-10.1); CHLORIDE 98 MMOL/L (99-107); GLUCOSE 88 MG/DL (70-104); POTASSIUM 4.5 MMOL/L (3.5-5.1); SODIUM 134 MMOL/L (135-145); TOTAL CARBON DIOXIDE 27.6 MMOL/L (24-32); TOTAL PROTEIN 6.8 G/DL (6.4-8.2); eCRCL 10 ML/MIN; eGFR 8 ML/MIN
[2024-06-03 07:20] LABS: TOTAL CELLS COUNTED 100
[2024-06-03 07:21] LABS: ANISOCYTOSIS 2+; PLATELET ESTIMATE NORMAL
[2024-06-03 07:22] LABS: STOMATOCYTES FEW
[2024-06-03 07:24] LABS: ELLIPTOCYTES FEW
[2024-06-03] MEDS: meropenem inj 500 MG in normal saline 100ml IV soln 100 ML IV SCH (08:00)
[2024-06-03] MEDS: heparin 1,000unit/ml 10ml vial 10 ML IV ONE (08:58)
[2024-06-03] MEDS: heparin 1,000 units/ml 10ml inj IV ONE (08:58)
[2024-06-03] MEDS: albumin (human) 25% 100 ML IV solution IV ONE (09:39)
[2024-06-03] MEDS: EPOETIN ALFA-EPBX 20,000 UNIT/ML 1 ML MDV IV ONE (10:45)
[2024-06-03] MEDS: heparin 1,000 units/ml 10ml inj HE ONE ×2 (10:56→10:57)
[2024-06-03 16:10] LABS: HBSAG SCREEN Negative (Negative)
== END 2024-06-03 17:10 | disposition home or self-care (01) | DRG 871 ==
LOC: ER 12:42 → ED HOLD 15:09 → UNDOADMIN 15:09 → ED HOLD 15:21 → EDBEDREQTM 16:27 → ORTHO 4S 17:10 → ED HOLD 17:10
PROVIDERS: ADMIT Internal Medicine; ATTEND Internal Medicine
PROC: BW211ZZ Computerized Tomography (CT Scan) of Abdomen and Pelvis using Low Osmolar Contrast (ICD-10-PCS; 2024-05-31)
PROC: 5A1D70Z Performance of Urinary Filtration, Intermittent, Less than 6 Hours Per Day (ICD-10-PCS; principal; 2024-06-01)
PROC: 5A1D70Z Performance of Urinary Filtration, Intermittent, Less than 6 Hours Per Day (ICD-10-PCS; 2024-06-02)
PROC: 5A1D70Z Performance of Urinary Filtration, Intermittent, Less than 6 Hours Per Day (ICD-10-PCS; 2024-06-03)
DX: A41.9 Sepsis, unspecified organism (principal); G93.41 Metabolic encephalopathy; N18.6 End stage renal disease; I50.31 Acute diastolic (congestive) heart failure; N13.6 Pyonephrosis; I13.2 Hypertensive heart and chronic kidney disease with heart failure and with stage 5 chronic kidney disease, or end stage renal disease; E87.29 Other acidosis; G89.29 Other chronic pain; Z20.822 Contact with and (suspected) exposure to COVID-19; K21.9 Gastro-esophageal reflux disease without esophagitis; M54.9 Dorsalgia, unspecified; J44.9 Chronic obstructive pulmonary disease, unspecified; N40.0 Benign prostatic hyperplasia without lower urinary tract symptoms; G47.30 Sleep apnea, unspecified; F31.9 Bipolar disorder, unspecified; E11.22 Type 2 diabetes mellitus with diabetic chronic kidney disease; N28.82 Megaloureter; Z90.49 Acquired absence of other specified parts of digestive tract; Z99.2 Dependence on renal dialysis; Z91.199 Patient's noncompliance with other medical treatment and regimen due to unspecified reason; Z87.442 Personal history of urinary calculi; Z86.73 Personal history of transient ischemic attack (TIA), and cerebral infarction without residual deficits; Z91.030 Bee allergy status; Z91.041 Radiographic dye allergy status; Z79.82 Long term (current) use of aspirin; Z79.899 Other long term (current) drug therapy
CPT/HCPCS: 36415; 36600; 70450; 71045; 74176; 80048; 80053; 81001; 82803; 83605; 83735; 84145; 85007; 85008; 85018; 85025; 87040; 87077; 87081; 87088; 87186; 87340; 87811; 93005; 93306; 96365; 99285; A4314; A4340; A4620; A6212; A6213; A6446; A6449; A6590; C1758; E1594; G0257; G0378; J0696; J1644; J2185; J3370; J7030; J7040; P9047; Q4081

== ENCOUNTER 2024-11-07 09:13 | Day surgery (SDC) | payer BC, MEDICARE ==
[2024-11-03 15:36] LABS: BASOPHILS % (AUTO) 0.5 % (0-1); EOSINOPHILS # (AUTO) 0.2 X10'3 (0-0.9); EOSINOPHILS % (AUTO) 3.4 % (0-6); LYMPHOCYTES # (AUTO) 1.1 X10'3 (1.1-4.8); LYMPHOCYTES % (AUTO) 16.1 % (21-51); MEAN CORPUSCULAR HEMOGLOBIN 29.8 PG (27.0-31.0); MEAN CORPUSCULAR HGB CONC 31.7 g/dL (33.0-36.5); MEAN CORPUSCULAR VOLUME 93.9 FL (78-98); MONOCYTES # (AUTO) 0.8 X10'3 (0-0.9); MONOCYTES % (AUTO) 11.4 % (2-12); NEUTROPHILS # (AUTO) 4.7 X10'3 (1.8-7.7); NEUTROPHILS % (AUTO) 68.6 % (42-75); PRE OP HEMATOCRIT 32.2 % (42.0-52.0); PRE OP PLATELET COUNT 263 X10'3 (140-440); PRE OP WHITE BLOOD COUNT 6.8 10'3 (4.8-10.8); RED BLOOD COUNT 3.43 X10'6 (4.70-6.10); RED CELL DISTRIBUTION WIDTH 18.2 % (11.5-14.5)
[2024-11-03 15:38] LABS: PRE OP HEMOGLOBIN 10.2 g/dL (14.0-17.9)
[2024-11-03 15:56] LABS: ALBUMIN 2.9 G/DL (3.4-5.0); ALBUMIN/GLOBULIN RATIO 0.7 (1.1-1.5); ALKALINE PHOSPHATASE 161 IU/L (46-116); BLOOD UREA NITROGEN 56 MG/DL (7-18); BUN/CREATININE RATIO 7.1 (10.0-20.0); CALCIUM 8.4 MG/DL (8.5-10.1); CHLORIDE 96 MMOL/L (99-107); CREATININE 7.91 MG/DL (0.60-1.10); PRE OP ALT 13 U/L (30-65); PRE OP ANION GAP 9 (8-16); PRE OP AST 5 U/L (10-37); PRE OP BILIRUB, TOTAL 0.4 MG/DL (0.0-1.0); PRE OP GLUCOSE 97 MG/DL (70-104); PRE OP SODIUM 134 MMOL/L (135-145); TOTAL CARBON DIOXIDE 29.1 MMOL/L (24-32); TOTAL PROTEIN 7.3 G/DL (6.4-8.2); eGFR 7 ML/MIN
[2024-11-07] VITALS (11 sets, daily range): BP systolic 98–112; BP diastolic 51–79; PULSE 70–97; RESP 10–16; TEMP 98.3; O2SAT 94–97
[~2024-11-07] VITALS: Ht 172.7 cm; Wt 118.5 kg
[2024-11-07] MEDS: ceFAZolin 2gm in dextrose, iso 50 ML IV ONE (05:30)
[2024-11-07] MEDS: normal saline 1000ml 1,000 ML IV SCH (05:30)
[~2024-11-07 09:13] MED LIST changes: +DOCUMENT DATE & TIME OF BETA-BLOCKER PO ONE; +FISH OIL; +FLUT1BLS4 INH; +FOLI1TAB34 PO; +GABA-1405 PO; -GABA600T13 PO; +MODA200T48 PO; +MVI; +PROBIOTIC; +SUPER B COMPLEX; -UMEC1DIS INH; -VITA-293 PO; +VITAMIN D3
[2024-11-07 10:21] LABS: ISTAT CREATININE 6.3 mg/dL (0.8-1.3); ISTAT HGB 12.6 g/dl (14.0-17.9); ISTAT IONIZED CALCIUM 1.1 mmol/L (1.03-1.32); ISTAT K 5.1 mmol/L (3.5-5.1); POC BUN/CREATININE RATIO 5.7 (5.4-32.0)
[2024-11-07] MEDS: famotidine 20mg tablet PO ONE (10:28)
[2024-11-07] MEDS ORDERED: labetalol 20mg/4ml (5mg/ml) syringe IV PRN (11:05)
[2024-11-07] MEDS ORDERED: morphine 2 MG/ML inj. syringe IV PRN (11:05)
[2024-11-07] MEDS ORDERED: hydrALAZINE 20mg/ml inj. IV PRN (11:05)
[2024-11-07] MEDS ORDERED: fentaNYL/PF 50MCG/1 ML 2ML syringe IV PRN ×2 (11:05)
[2024-11-07] MEDS ORDERED: LIDOcaine 1% (10mg/ml)w/preservative inj. 20ml MDV ONE (11:05)
[2024-11-07] MEDS ORDERED: heparin 10,000 units/1 ML INJ ONE (11:05)
[2024-11-07] MEDS ORDERED: BUPIVAcaine/PF 2.5mg/ml (0.25%) 10ml vial ONE (11:05)
[2024-11-07] MEDS ORDERED: ringers solution, lacted 1,000 ML IV SCH (11:05)
[2024-11-07] MEDS ORDERED: ondansetron/PF 4mg/2ml inj IV PRN (11:05)
[2024-11-07] MEDS ORDERED: albumin (Human) 5% 250ml BOTTLE IV ONE (11:20)
[2024-11-07] MEDS ORDERED: sevoflurane 250ml liquid IH ONE (11:20)
[2024-11-07] MEDS ORDERED: fentaNYL/PF 50MCG/1 ML 2ML syringe ONE (11:31)
[2024-11-07] MEDS ORDERED: midazolam 1 mg/ML 2ml injection ONE (11:31)
[2024-11-07] MEDS ORDERED: propofol inj 20 ML IV ONE (11:42)
[2024-11-07] MEDS ORDERED: dexamethasone sod phosphate 4mg/ml inj. ONE (11:42)
[2024-11-07] MEDS ORDERED: LIDOcaine 2% (20mg/ml) 5ml vial ONE (11:42)
[2024-11-07] MEDS ORDERED: ondansetron/PF 4mg/2ml inj ONE (11:42)
[2024-11-07] MEDS: morphine 4 MG/ML inj SYRINge IV PRN (13:23)
== END 2024-11-07 14:41 | disposition home or self-care (01) ==
LOC: PAS 09:13
PROVIDERS: ATTEND Surgery
DX: I77.0 Arteriovenous fistula, acquired (principal); I50.9 Heart failure, unspecified; J44.9 Chronic obstructive pulmonary disease, unspecified; N18.6 End stage renal disease; F32.A Depression, unspecified; K21.9 Gastro-esophageal reflux disease without esophagitis; E78.5 Hyperlipidemia, unspecified; Z79.899 Other long term (current) drug therapy; Z87.440 Personal history of urinary (tract) infections; Z91.041 Radiographic dye allergy status; Z98.890 Other specified postprocedural states; Z90.49 Acquired absence of other specified parts of digestive tract; Z87.891 Personal history of nicotine dependence
CPT/HCPCS: 36415; 36832; 80047; 80053; 82948; 85025; 93005; J0690; J1100; J1644; J2003; J2250; J2270; J2371; J2405; J2704; J3010; J3490; J7030; J7040; J7120; P9045; Z7506; Z7508; Z7512; A4215; A4615; A4618; A6446; A6449; A7000

== ENCOUNTER 2024-11-10 12:24 | Emergency (ER) | payer BC, MEDICARE ==
[~2024-11-10] VITALS: Ht 172.7 cm; Wt 116.0 kg
[~2024-11-10 12:24] MED LIST changes: -DOCUMENT DATE & TIME OF BETA-BLOCKER PO ONE; -SUPER B COMPLEX
[2024-11-10 12:42] VITALS: BP 89/49; PULSE 79; RESP 16; TEMP 98.8; O2SAT 91
[2024-11-10] MEDS: HYDROcodone/acetaminophen 10/325mg tab PO ONE (15:55)
[2024-11-10] MEDS ORDERED: HYDR-3965 PO (17:34)
== END 2024-11-10 18:34 | disposition home or self-care (01) ==
LOC: ER 12:24
DX: S16.1XXA Strain of muscle, fascia and tendon at neck level, initial encounter (principal); S63.601A Unspecified sprain of right thumb, initial encounter; I13.0 Hypertensive heart and chronic kidney disease with heart failure and stage 1 through stage 4 chronic kidney disease, or unspecified chronic kidney disease; N18.9 Chronic kidney disease, unspecified; I50.9 Heart failure, unspecified; J44.9 Chronic obstructive pulmonary disease, unspecified; K21.9 Gastro-esophageal reflux disease without esophagitis; E11.22 Type 2 diabetes mellitus with diabetic chronic kidney disease; G89.29 Other chronic pain; Z91.041 Radiographic dye allergy status; Z91.030 Bee allergy status; Z79.82 Long term (current) use of aspirin; Z79.899 Other long term (current) drug therapy; Z87.19 Personal history of other diseases of the digestive system; Z87.440 Personal history of urinary (tract) infections; Z88.8 Allergy status to other drugs, medicaments and biological substances; Z90.49 Acquired absence of other specified parts of digestive tract; Z99.2 Dependence on renal dialysis; W01.0XXA Fall on same level from slipping, tripping and stumbling without subsequent striking against object, initial encounter; Y93.89 Activity, other specified; Y92.89 Other specified places as the place of occurrence of the external cause; Y99.8 Other external cause status
CPT/HCPCS: 29125; 70450; 72125; 72141; 73130; 99284; L0172

== ENCOUNTER 2024-12-30 15:36 | Inpatient (IN) | payer BC, MEDICARE ==
[2024-12-30] VITALS (11 sets, daily range): BP systolic 79–143; BP diastolic 52–88; PULSE 82–114; RESP 14–27; TEMP 99.5–100.9; O2SAT 92–98
[~2024-12-30] VITALS: Ht 185.4 cm; Wt 124.0 kg
[2024-12-30] MEDS: ondansetron/PF 4mg/2ml inj IV ONE (16:08)
[2024-12-30] MEDS: ondansetron 4mg rapidly disintigrating tab PO ONE (16:11)
[2024-12-30 16:13] LABS: BASOPHILS % (AUTO) 0.1 % (0-1); EOSINOPHILS % (AUTO) 0 % (0-6); HEMATOCRIT 35.5 % (42.0-52.0); HEMOGLOBIN 11.2 g/dl (14.0-17.9); LYMPHOCYTES # (AUTO) 0.5 X10'3 (1.1-4.8); LYMPHOCYTES % (AUTO) 3.9 % (21-51); MEAN CORPUSCULAR HGB CONC 31.6 g/dL (33.0-36.5); MEAN CORPUSCULAR VOLUME 91.8 FL (78-98); MEAN PLATELET VOLUME 6.5 FL (7.4-10.4); MONOCYTES # (AUTO) 0.8 X10'3 (0-0.9); MONOCYTES % (AUTO) 6.5 % (2-12); NEUTROPHILS # (AUTO) 11.4 X10'3 (1.8-7.7); NEUTROPHILS % (AUTO) 89.5 % (42-75); PLATELET COUNT 269 X10'3 (140-440); RED BLOOD COUNT 3.87 X10'6 (4.70-6.10); RED CELL DISTRIBUTION WIDTH 18.4 % (11.5-14.5); WHITE BLOOD COUNT 12.8 X10'3 (4.5-11.0)
[2024-12-30] MEDS: naloxone 2mg/2ml inj ONE (16:29)
[2024-12-30 16:34] LABS: ABG BASE EXCESS -4.9 mmol/L (-2.0-3.0); ABG HCO3 19.6 mmol/L (21.0-28.0); ABG OXYGEN SATURATION 92.6 % (94.0-98.0); ABG PCO2 (T) 36.1 mmHg (35.0-48.0); ABG PH (T) 7.358 (7.350-7.450); ABG PO2 (T) 74.5 mmHg (83.0-108.0); ALLEN'S TEST POSITIVE; FCOHb 0.6 % (0.5-1.5); FHHb 7.3 % (0.0-5.0); FLOW 15 L/min; FMetHb 0.3 % (0.0-1.5); FO2Hb 91.8 % (94.0-98.0); MODE MASK - NRB; PATIENT TEMPERATURE 38.1; TOTAL HEMOGLOBIN 11.5 G/dl (13.5-17.5)
[2024-12-30] MEDS: succinylcholine 20mg/ml inj IV ONE (16:35)
[2024-12-30 16:40] LABS: ALBUMIN 2.6 G/DL (3.4-5.0); ANION GAP 11 (8-16); BLOOD UREA NITROGEN 54 MG/DL (7-18); BUN/CREATININE RATIO 5.4 (10.0-20.0); CALCIUM 9.4 MG/DL (8.5-10.1); CHLORIDE 93 MMOL/L (99-107); CREATININE 10.09 MG/DL (0.60-1.10); GLUCOSE 124 MG/DL (70-104); SODIUM 129 MMOL/L (135-145); TOTAL CARBON DIOXIDE 24.8 MMOL/L (24-32); eCRCL 8 ML/MIN; eGFR 5 ML/MIN
[2024-12-30 16:58] LABS: POTASSIUM 6.9 MMOL/L (3.5-5.1)
[2024-12-30] MEDS: naloxone 2mg/2ml inj IV STA ×2 (17:06→17:24)
[2024-12-30] MEDS: propofol 1000mg/100ml bottle 100 ML IV SCH (17:10)
[2024-12-30 17:27] LABS: ABG BASE EXCESS -6.2 mmol/L (-2.0-3.0); ABG HCO3 18.2 mmol/L (21.0-28.0); ABG OXYGEN SATURATION 94.7 % (94.0-98.0); ABG PCO2 (T) 34.4 mmHg (35.0-48.0); ABG PH (T) 7.347 (7.350-7.450); ABG PO2 (T) 85.8 mmHg (83.0-108.0); ALLEN'S TEST POSITIVE; FCOHb 0.4 % (0.5-1.5); FHHb 5.3 % (0.0-5.0); FMetHb 0.3 % (0.0-1.5); MODE VENT - PRVC; PATIENT TEMPERATURE 38.1; PEEP 5 cm H2O; RESPIRATORY RATE 14 b/min; TIDAL VOLUME 500 mL; TOTAL HEMOGLOBIN 11.7 G/dl (13.5-17.5)
[2024-12-30] MEDS ORDERED: vancomycin/NS 1 GM ADD-VANTAGE 250 ML X 1 DOSE IV PRN (17:30)
[2024-12-30] MEDS: CefTRIAXone 2gm/D5W 50ml BAG 50 ML IV ONE (17:42)
[2024-12-30] MEDS: ketamine 50 mg/ml 10ml vial IV ONE (17:43)
[2024-12-30] MEDS ORDERED: ondansetron/PF 4mg/2ml inj IV PRN (18:00)
[2024-12-30] MEDS ORDERED: etomidate 2mg/ml inj. ONE (18:00)
[2024-12-30] MEDS ORDERED: magnesium sulf-water 4G/100mL 100 ML IV PRN (18:00)
[2024-12-30] MEDS ORDERED: potassium Cl 40MEQ/1/2NS 520ml 520 ML IV PRN (18:00)
[2024-12-30] MEDS ORDERED: mag hydrox/Alum hydrox/simeth 30ml oral suspension PO PRN (18:00)
[2024-12-30] MEDS ORDERED: potassium Cl 20 mEq SR tablet PO PRN ×2 (18:00)
[2024-12-30] MEDS ORDERED: magnesium sulf-water 2g/50mL 50 ML IV PRN (18:00)
[2024-12-30] MEDS ORDERED: magnesium Cl slow-release 64mg tablet PO PRN (18:00)
[2024-12-30] MEDS ORDERED: magnesium hydroxide 30ml (MOM) UD suspension PO PRN (18:00)
[2024-12-30] MEDS ORDERED: acetaminophen 325mg tablet PO PRN (18:00)
[2024-12-30] MEDS: vancomycin/NS 1 GM ADD-VANTAGE 250 ML X 1 DOSE IV ONE (18:07)
[2024-12-30] MEDS: FENTANYL-0.9 % NACL/PF 100 ML IV SCH (18:32)
[2024-12-30] MEDS: calcium chloride 100 MG/1 ML inj IV ONE (19:39)
[2024-12-30] MEDS: sodium polystyrene sulfonate 15gm/60ml oral suspension NG ONE (19:39)
[2024-12-30] MEDS: insulin regular, human 10 units/0.1 ml syringe IV ONE (19:39)
[2024-12-30] MEDS: dextrose 50%-water 50ml dispensing syringe IV ONE ×2 (19:41→19:54)
[2024-12-30] MEDS: NORepinephrine 8mg/ 250ml NS 250 ML IV ONE (19:53)
[2024-12-30] MEDS: K and/or MAG REPLACEMENT MC SCH (20:00)
[2024-12-30] MEDS ORDERED: VANCOmycin 1250MG/NS 250ml Bag 250 ML IV ONE (20:00)
[2024-12-30] MEDS: docusate sod 100mg capsule PO SCH (20:00)
[2024-12-30] MEDS: heparin, porcine 5000 units/ml vial SQ SCH (20:00)
[2024-12-30 22:54] LABS: BILIRUBIN,URINE NEGATIVE (Neg); CLARITY,URINE CLOUDY (Clear); COLOR,URINE YELLOW (Yellow); GLUCOSE, URINE NEGATIVE (Neg); KETONES,URINE NEGATIVE (Neg); LEUKOCYTE ESTERASE ,URINE LARGE (Neg); NITRITES, URINE NEGATIVE (Neg); OCCULT BLOOD,URINE MODERATE (Neg); PROTEIN,URINE >=300 mg/dl (Neg); UROBILINOGEN,URINE 0.2 E.U/dL (0.2-1.0)
[2024-12-30 22:58] LABS: UA COLLECTION TYPE FOLEY CATH
[2024-12-30 22:59] LABS: BACTERIA,URINE 4+ /HPF (Neg); SQUAMOUS EPITHELIAL CELL,UR FEW /LPF (FEW); WBC,URINE TNTC /HPF (0-4)
[2024-12-30] MEDS: ipratropium/albuterol 3ml nebule NEB SCH (23:04)
[2024-12-30 23:11] LABS: URINE AMPHETAMINE SCREEN NEGATIVE (Neg); URINE BARBITUATE SCREEN NEGATIVE (Neg); URINE BENZODIAZEPINES SCREEN NEGATIVE (Neg); URINE CANNABINOID SCREEN NEGATIVE (Neg); URINE COCAINE SCREEN NEGATIVE (Neg); URINE METHADONE SCREEN NEGATIVE (Neg); URINE OPIATE SCREEN NEGATIVE (Neg); URINE PHENCYCLIDINE SCREEN NEGATIVE (Neg)
[2024-12-30 23:26] LABS: ALANINE AMINOTRANSFERASE 17 U/L (12-78); ALBUMIN 2.5 G/DL (3.4-5.0); ALBUMIN/GLOBULIN RATIO 0.5 (1.1-1.5); ALKALINE PHOSPHATASE 170 IU/L (46-116); ANION GAP 11 (8-16); ASPARTATE AMINO TRANSFERASE 12 U/L (10-37); BILIRUBIN,TOTAL 0.5 MG/DL (0.1-1.0); BLOOD UREA NITROGEN 58 MG/DL (7-18); BUN/CREATININE RATIO 5.8 (10.0-20.0); CHLORIDE 97 MMOL/L (99-107); CREATININE 10.06 MG/DL (0.60-1.10); GLUCOSE 144 MG/DL (70-104); MAGNESIUM 2.5 MG/DL (1.5-2.4); PHOSPHORUS 5.5 MG/DL (2.3-4.5); POTASSIUM 5.7 MMOL/L (3.5-5.1); SODIUM 133 MMOL/L (135-145); TOTAL CARBON DIOXIDE 24.7 MMOL/L (24-32); TOTAL PROTEIN 7.3 G/DL (6.4-8.2); eCRCL 8 ML/MIN; eGFR 5 ML/MIN
[2024-12-31] VITALS (62 sets, daily range): BP systolic 87–131; BP diastolic 55–74; PULSE 87–125; RESP 11–22; TEMP 98.8–101.2; O2SAT 94–100
[2024-12-31] MEDS: NORepinephrine 8mg/ 250ml NS 250 ML IV ONE (01:10)
[2024-12-31 02:48] LABS: BASOPHILS # (AUTO) 0.1 X10'3 (0-0.2); BASOPHILS % (AUTO) 0.3 % (0-1); EOSINOPHILS % (AUTO) 0.2 % (0-6); HEMATOCRIT 35.1 % (42.0-52.0); HEMOGLOBIN 11.1 g/dl (14.0-17.9); LYMPHOCYTES # (AUTO) 1.5 X10'3 (1.1-4.8); LYMPHOCYTES % (AUTO) 8.6 % (21-51); MEAN CORPUSCULAR HEMOGLOBIN 28.5 PG (27.0-31.0); MEAN CORPUSCULAR HGB CONC 31.7 g/dL (33.0-36.5); MEAN CORPUSCULAR VOLUME 89.9 FL (78-98); MEAN PLATELET VOLUME 6.4 FL (7.4-10.4); MONOCYTES # (AUTO) 2.4 X10'3 (0-0.9); MONOCYTES % (AUTO) 13.9 % (2-12); NEUTROPHILS # (AUTO) 13.6 X10'3 (1.8-7.7); PLATELET COUNT 375 X10'3 (140-440); RED CELL DISTRIBUTION WIDTH 18.3 % (11.5-14.5); WHITE BLOOD COUNT 17.6 X10'3 (4.5-11.0)
[2024-12-31] MEDS: VANCOMYCIN LEVEL IV SCH (03:00)
[2024-12-31 03:06] LABS: ALANINE AMINOTRANSFERASE 12 U/L (12-78); ALBUMIN 2.3 G/DL (3.4-5.0); ALBUMIN/GLOBULIN RATIO 0.5 (1.1-1.5); ALKALINE PHOSPHATASE 165 IU/L (46-116); ANION GAP 13 (8-16); ASPARTATE AMINO TRANSFERASE 16 U/L (10-37); BILIRUBIN,TOTAL 0.5 MG/DL (0.1-1.0); BLOOD UREA NITROGEN 55 MG/DL (7-18); BUN/CREATININE RATIO 5.2 (10.0-20.0); CALCIUM 9.1 MG/DL (8.5-10.1); CHLORIDE 96 MMOL/L (99-107); CREATININE 10.51 MG/DL (0.60-1.10); GLUCOSE 138 MG/DL (70-104); MAGNESIUM 3.1 MG/DL (1.5-2.4); POTASSIUM 5.3 MMOL/L (3.5-5.1); SODIUM 131 MMOL/L (135-145); TOTAL CARBON DIOXIDE 22.3 MMOL/L (24-32); TOTAL PROTEIN 7.3 G/DL (6.4-8.2); VANCOMYCIN,RANDOM 17.1 ug/mL (20.0-30.0); eCRCL 7 ML/MIN; eGFR 5 ML/MIN
[2024-12-31 04:19] LABS: ABG BASE EXCESS -5.5 mmol/L (-2.0-3.0); ABG OXYGEN SATURATION 93.4 % (94.0-98.0); ABG PCO2 (T) 47.8 mmHg (35.0-48.0); ABG PH (T) 7.267 (7.350-7.450); ABG PO2 (T) 83.1 mmHg (83.0-108.0); ALLEN'S TEST POSITIVE; FHHb 6.5 % (0.0-5.0); FMetHb 0.3 % (0.0-1.5); FO2Hb 92.2 % (94.0-98.0); MODE prvc; PATIENT TEMPERATURE 38.5; PEEP 5 cm H2O; RESPIRATORY RATE 14 b/min; TIDAL VOLUME 500 mL; TOTAL HEMOGLOBIN 11.5 G/dl (13.5-17.5)
[2024-12-31] MEDS: NORepinephrine 8mg/ 250ml NS 250 ML IV PRN (08:28)
[2024-12-31] MEDS ORDERED: normal saline 1000ml 100 ML IV PRN (09:00)
[2024-12-31] MEDS: COMMUNICATION ORDER 1 EA MISC MC ONE (09:00)
[2024-12-31] MEDS: CEFEPIME 2gm in D5W 50mL 50 ML IV ONE (09:16)
[2024-12-31] MEDS: PERFLUTREN PROTEIN-A MICROSPHR (Optison) 0.22 MG/ML 3ML VIAL IV ONE (11:30)
[2024-12-31] MEDS: albumin (human) 25% 100ml IV 100 ML IV PRN (11:40)
[2024-12-31] MEDS: heparin 1,000unit/ml 10ml vial 10 ML IV ONE (12:08)
[2024-12-31] MEDS: heparin 1,000 units/ml 10ml inj IV ONE (12:11)
[2024-12-31] MEDS: heparin 1,000 units/ml 10ml inj HE ONE ×2 (12:12→12:13)
[2024-12-31] MEDS: albumin (human) 25% 100ml IV 100 ML IV ONE (12:14)
[2024-12-31] MEDS: propofol 1000mg/100ml bottle 100 ML IV SCH (12:26)
[2024-12-31] MEDS: pantoprazole 40 MG vial IV SCH (13:09)
[2024-12-31] MEDS ORDERED: acetaminophen 325mg tablet OGT PRN (14:39)
[2024-12-31] MEDS ORDERED: POTASSIUM CHLORIDE 20 MEQ/15 ML oral solution OGT PRN ×2 (14:45→14:49)
[2024-12-31] MEDS ORDERED: mag hydrox/Alum hydrox/simeth 30ml oral suspension OGT PRN (14:46)
[2024-12-31] MEDS ORDERED: magnesium hydroxide 30ml (MOM) UD suspension OGT PRN (14:47)
[2024-12-31] MEDS ORDERED: POTASSIUM CHLORIDE 20 MEQ/15 ML oral solution PEG PRN (14:49)
[2024-12-31] MEDS: NORepinephrine 8mg/ 250ml NS 250 ML IV SCH (15:51)
[2024-12-31] MEDS ORDERED: CHOL400T57 PO (16:51)
[2024-12-31] MEDS ORDERED: OMEG-166 PO (16:51)
[2024-12-31] MEDS ORDERED: MULT-1085 PO (16:51)
[2024-12-31] MEDS ORDERED: CARV3.122 PO (16:51)
[2024-12-31] MEDS: amiodarone 150mg/dext, iso-os 100 ML IV ONE (17:01)
[2024-12-31] MEDS: amiodarone/D5 360MG/200ML BAG 200 ML IV PRN (17:23)
[2024-12-31] MEDS ORDERED: modafinil 100mg tablet PO PRN (17:25)
[2024-12-31] MEDS: carVEDilol 3.125mg tablet PO SCH (20:00)
[2024-12-31] MEDS: docusate sodium 100mg/10ml UD cup OGT SCH (20:44)
[2024-12-31 22:23] LABS: BASOPHILS % (AUTO) 0.2 % (0-1); EOSINOPHILS % (AUTO) 0.2 % (0-6); HEMATOCRIT 34.1 % (42.0-52.0); HEMOGLOBIN 10.6 g/dl (14.0-17.9); LYMPHOCYTES # (AUTO) 1.1 X10'3 (1.1-4.8); LYMPHOCYTES % (AUTO) 8.8 % (21-51); MEAN CORPUSCULAR HEMOGLOBIN 27.6 PG (27.0-31.0); MEAN CORPUSCULAR VOLUME 88.9 FL (78-98); MEAN PLATELET VOLUME 6.3 FL (7.4-10.4); MONOCYTES % (AUTO) 15.3 % (2-12); NEUTROPHILS # (AUTO) 9.8 X10'3 (1.8-7.7); NEUTROPHILS % (AUTO) 75.5 % (42-75); PLATELET COUNT 256 X10'3 (140-440); RED BLOOD COUNT 3.84 X10'6 (4.70-6.10); RED CELL DISTRIBUTION WIDTH 18.1 % (11.5-14.5)
[2024-12-31] MEDS: HEPARIN DRIP INITAL BOLUS --- DO NOT GIVE/ORDER MC ONE (22:23)
[2024-12-31 22:45] LABS: APTT 32 SECONDS (22-32); INR 1.2 INR
[2024-12-31 22:48] LABS: TOTAL CELLS COUNTED 100
[2024-12-31] MEDS: heparin 25,000 UNIT/250ml bag 250 ML IV PRN (23:18)
[2024-12-31] MEDS: MESSAGE TO NURSING IV ONE (23:39)
[2025-01-01] VITALS (55 sets, daily range): BP systolic 88–118; BP diastolic 49–72; PULSE 75–117; RESP 10–19; TEMP 96.6–97.5; O2SAT 90–98
[2025-01-01 03:00] LABS: BASOPHILS % (AUTO) 0.3 % (0-1); EOSINOPHILS # (AUTO) 0.1 X10'3 (0-0.9); EOSINOPHILS % (AUTO) 0.8 % (0-6); HEMATOCRIT 33.3 % (42.0-52.0); HEMOGLOBIN 10.6 g/dl (14.0-17.9); LYMPHOCYTES # (AUTO) 1.7 X10'3 (1.1-4.8); LYMPHOCYTES % (AUTO) 13.6 % (21-51); MEAN CORPUSCULAR HEMOGLOBIN 28.5 PG (27.0-31.0); MEAN CORPUSCULAR HGB CONC 31.7 g/dL (33.0-36.5); MEAN CORPUSCULAR VOLUME 89.7 FL (78-98); MEAN PLATELET VOLUME 6.4 FL (7.4-10.4); MONOCYTES # (AUTO) 2.1 X10'3 (0-0.9); MONOCYTES % (AUTO) 16.4 % (2-12); NEUTROPHILS # (AUTO) 8.6 X10'3 (1.8-7.7); NEUTROPHILS % (AUTO) 68.9 % (42-75); PLATELET COUNT 251 X10'3 (140-440); RED BLOOD COUNT 3.71 X10'6 (4.70-6.10); RED CELL DISTRIBUTION WIDTH 18.6 % (11.5-14.5); WHITE BLOOD COUNT 12.5 X10'3 (4.5-11.0)
[2025-01-01 03:17] LABS: ALANINE AMINOTRANSFERASE 13 U/L (12-78); ALBUMIN 2.3 G/DL (3.4-5.0); ALBUMIN/GLOBULIN RATIO 0.5 (1.1-1.5); ALKALINE PHOSPHATASE 146 IU/L (46-116); ANION GAP 13 (8-16); ASPARTATE AMINO TRANSFERASE 11 U/L (10-37); BILIRUBIN,TOTAL 0.4 MG/DL (0.1-1.0); BLOOD UREA NITROGEN 35 MG/DL (7-18); BUN/CREATININE RATIO 4.7 (10.0-20.0); CALCIUM 8.4 MG/DL (8.5-10.1); CHLORIDE 98 MMOL/L (99-107); CREATININE 7.38 MG/DL (0.60-1.10); GLUCOSE 159 MG/DL (70-104); MAGNESIUM 2.1 MG/DL (1.5-2.4); POTASSIUM 3.9 MMOL/L (3.5-5.1); SODIUM 137 MMOL/L (135-145); TOTAL CARBON DIOXIDE 25.7 MMOL/L (24-32); TOTAL PROTEIN 6.9 G/DL (6.4-8.2); VANCOMYCIN,RANDOM 10.2 ug/mL (20.0-30.0); eCRCL 10 ML/MIN; eGFR 7 ML/MIN
[2025-01-01 03:49] LABS: ABG HCO3 24.2 mmol/L (21.0-28.0); ABG OXYGEN SATURATION 94.5 % (94.0-98.0); ABG PCO2 (T) 47.2 mmHg (35.0-48.0); ABG PH (T) 7.328 (7.350-7.450); ABG PO2 (T) 74.2 mmHg (83.0-108.0); ALLEN'S TEST POSITIVE; FHHb 5.4 % (0.0-5.0); FMetHb 0.3 % (0.0-1.5); FO2Hb 93.3 % (94.0-98.0); MODE PRVC; PATIENT TEMPERATURE 37.1; PEEP 5 cm H2O; RESPIRATORY RATE 14 b/min; TIDAL VOLUME 500 mL; TOTAL HEMOGLOBIN 11.5 G/dl (13.5-17.5)
[2025-01-01 03:57] LABS: NUCLEATED RED BLOOD CELLS 1 /100WBC (0-0); TOTAL CELLS COUNTED 100
[2025-01-01] MEDS: heparin 10,000 units/1 ML INJ IV PRN (04:56)
[2025-01-01] MEDS: MESSAGE TO NURSING IV ONE ×3 (05:49→17:17)
[2025-01-01] MEDS: tamsulosin 0.4mg capsule PO SCH ×2 (07:41→20:50)
[2025-01-01] MEDS: aspirin 325mg tablet PO SCH (07:42)
[2025-01-01] MEDS: cefepime 1GM in D5W 50mL 50 ML IV SCH (07:57)
[2025-01-01] MEDS: vancomycin/NS 1 GM ADD-VANTAGE 250 ML X 1 DOSE IV ONE (09:12)
[2025-01-01] MEDS: CefTRIAXone/D5W-Rocephin 1gm 50 ML IV SCH (11:47)
[2025-01-01] MEDS ORDERED: albumin (human) 25% 100ml IV 100 ML IV PRN (11:55)
[2025-01-01] MEDS ORDERED: aspirin 325mg tablet OGT SCH (14:48)
[2025-01-01] MEDS: heparin 1,000unit/ml 10ml vial 10 ML IV ONE (14:53)
[2025-01-01] MEDS: heparin 1,000 units/ml 10ml inj HE ONE ×2 (14:54→14:55)
[2025-01-01] MEDS: heparin 1,000 units/ml 10ml inj IV ONE (14:54)
[2025-01-01] MEDS ORDERED: magnesium hydroxide 30ml (MOM) UD suspension PO PRN (15:05)
[2025-01-01] MEDS ORDERED: docusate sodium 100mg/10ml UD cup PO SCH (15:05)
[2025-01-01] MEDS ORDERED: mag hydrox/Alum hydrox/simeth 30ml oral suspension PO PRN (15:05)
[2025-01-01] MEDS ORDERED: POTASSIUM CHLORIDE 20 MEQ/15 ML oral solution PO PRN ×2 (15:06)
[2025-01-01] MEDS ORDERED: tamsulosin 0.4mg capsule PO SCH (20:00)
[2025-01-01] MEDS: acetaminophen 325mg tablet PO PRN (20:51)
[2025-01-02] VITALS (36 sets, daily range): BP systolic 80–124; BP diastolic 45–62; PULSE 69–90; RESP 11–27; O2SAT 85–98
[2025-01-02] MEDS: MESSAGE TO NURSING IV ONE ×4 (00:24→23:51)
[2025-01-02 05:56] LABS: ALANINE AMINOTRANSFERASE 16 U/L (12-78); ALBUMIN 2.1 G/DL (3.4-5.0); ALBUMIN/GLOBULIN RATIO 0.4 (1.1-1.5); ALKALINE PHOSPHATASE 129 IU/L (46-116); ANION GAP 9 (8-16); ASPARTATE AMINO TRANSFERASE 23 U/L (10-37); BILIRUBIN,TOTAL 0.3 MG/DL (0.1-1.0); BLOOD UREA NITROGEN 25 MG/DL (7-18); BUN/CREATININE RATIO 4.4 (10.0-20.0); CALCIUM 8.6 MG/DL (8.5-10.1); CHLORIDE 100 MMOL/L (99-107); CREATININE 5.73 MG/DL (0.60-1.10); GLUCOSE 118 MG/DL (70-104); MAGNESIUM 1.8 MG/DL (1.5-2.4); POTASSIUM 3.5 MMOL/L (3.5-5.1); SODIUM 135 MMOL/L (135-145); TOTAL CARBON DIOXIDE 26.3 MMOL/L (24-32); TOTAL PROTEIN 6.8 G/DL (6.4-8.2); eCRCL 13 ML/MIN; eGFR 10 ML/MIN
[2025-01-02 06:06] LABS: BASOPHILS # (AUTO) 0.1 X10'3 (0-0.2); BASOPHILS % (AUTO) 0.6 % (0-1); EOSINOPHILS # (AUTO) 0.3 X10'3 (0-0.9); EOSINOPHILS % (AUTO) 3.4 % (0-6); HEMATOCRIT 31.8 % (42.0-52.0); HEMOGLOBIN 10.2 g/dl (14.0-17.9); LYMPHOCYTES # (AUTO) 1.2 X10'3 (1.1-4.8); LYMPHOCYTES % (AUTO) 12.3 % (21-51); MEAN CORPUSCULAR HEMOGLOBIN 28.5 PG (27.0-31.0); MEAN CORPUSCULAR VOLUME 89.2 FL (78-98); MEAN PLATELET VOLUME 6.5 FL (7.4-10.4); MONOCYTES # (AUTO) 1.2 X10'3 (0-0.9); MONOCYTES % (AUTO) 12.3 % (2-12); NEUTROPHILS % (AUTO) 71.4 % (42-75); PLATELET COUNT 240 X10'3 (140-440); RED BLOOD COUNT 3.56 X10'6 (4.70-6.10); RED CELL DISTRIBUTION WIDTH 18.1 % (11.5-14.5); WHITE BLOOD COUNT 9.8 X10'3 (4.5-11.0)
[2025-01-02 07:13] LABS: HEMOGLOBIN A1C 4.8 % (4.5-6.2)
[2025-01-02] MEDS: docusate sod 100mg capsule PO SCH (07:32)
[2025-01-02] MEDS: aspirin 325mg tablet PO SCH (07:32)
[2025-01-02] MEDS: amiodarone 200mg tablet PO SCH (11:37)
[2025-01-02] MEDS: midodrine 5mg tablet PO SCH (11:39)
[2025-01-02] MEDS: OMEGA-3/DHA/EPA/FISH OIL 1 EACH CAPSULE.DR PO SCH (20:25)
[2025-01-02] MEDS: gabapentin 300mg capsule PO SCH (20:27)
[2025-01-02 20:35] LABS: THYROID STIMULATING HORMONE 0.63 ulU/ml (0.34-4.50)
[2025-01-02] MEDS: NORepinephrine 8mg/ 250ml NS 250 ML IV SCH (23:53)
[2025-01-03] VITALS (45 sets, daily range): BP systolic 80–125; BP diastolic 37–67; PULSE 67–102; RESP 12–20; TEMP 96.2–96.5; O2SAT 92–100
[2025-01-03] MEDS: midodrine 5mg tablet PO SCH
[2025-01-03 03:21] LABS: BASOPHILS % (AUTO) 0.5 % (0-1); EOSINOPHILS # (AUTO) 0.3 X10'3 (0-0.9); EOSINOPHILS % (AUTO) 4.8 % (0-6); HEMATOCRIT 28.1 % (42.0-52.0); LYMPHOCYTES # (AUTO) 1.5 X10'3 (1.1-4.8); LYMPHOCYTES % (AUTO) 20.5 % (21-51); MEAN CORPUSCULAR HEMOGLOBIN 28.5 PG (27.0-31.0); MEAN CORPUSCULAR HGB CONC 31.8 g/dL (33.0-36.5); MEAN CORPUSCULAR VOLUME 89.5 FL (78-98); MEAN PLATELET VOLUME 6.4 FL (7.4-10.4); MONOCYTES # (AUTO) 0.8 X10'3 (0-0.9); MONOCYTES % (AUTO) 11.7 % (2-12); NEUTROPHILS # (AUTO) 4.5 X10'3 (1.8-7.7); NEUTROPHILS % (AUTO) 62.5 % (42-75); PLATELET COUNT 179 X10'3 (140-440); RED BLOOD COUNT 3.14 X10'6 (4.70-6.10); RED CELL DISTRIBUTION WIDTH 17.9 % (11.5-14.5); WHITE BLOOD COUNT 7.2 X10'3 (4.5-11.0)
[2025-01-03 03:44] LABS: ALANINE AMINOTRANSFERASE 17 U/L (12-78); ALBUMIN/GLOBULIN RATIO 0.5 (1.1-1.5); ALKALINE PHOSPHATASE 109 IU/L (46-116); ANION GAP 12 (8-16); ASPARTATE AMINO TRANSFERASE 13 U/L (10-37); BILIRUBIN,TOTAL 0.3 MG/DL (0.1-1.0); BLOOD UREA NITROGEN 38 MG/DL (7-18); BUN/CREATININE RATIO 5.3 (10.0-20.0); CALCIUM 8.7 MG/DL (8.5-10.1); CHLORIDE 98 MMOL/L (99-107); CREATININE 7.18 MG/DL (0.60-1.10); GLUCOSE 104 MG/DL (70-104); MAGNESIUM 1.7 MG/DL (1.5-2.4); POTASSIUM 3.6 MMOL/L (3.5-5.1); SODIUM 135 MMOL/L (135-145); TOTAL CARBON DIOXIDE 24.8 MMOL/L (24-32); TOTAL PROTEIN 6.1 G/DL (6.4-8.2); eCRCL 11 ML/MIN; eGFR 8 ML/MIN
[2025-01-03] MEDS: MESSAGE TO NURSING IV ONE ×3 (04:38→17:04)
[2025-01-03 06:11] LABS: HBSAG SCREEN Negative (Negative); HEP B SURF AB Non Reactive (.)
[2025-01-03] MEDS: heparin 1,000unit/ml 10ml vial 10 ML IV ONE (08:22)
[2025-01-03] MEDS: heparin 1,000 units/ml 10ml inj IV ONE (08:25)
[2025-01-03] MEDS: heparin 1,000 units/ml 10ml inj HE ONE ×2 (08:25→08:26)
[2025-01-03] MEDS: multivitamins, therapeutics tablet PO SCH (08:29)
[2025-01-03] MEDS: duloxetine 30mg CAPSULE.DR PO SCH (08:29)
[2025-01-03] MEDS: oxyCODONE/APAP 10/325mg tablet PO PRN (11:16)
[2025-01-04] VITALS (27 sets, daily range): BP systolic 82–123; BP diastolic 39–82; PULSE 65–93; RESP 12–21; TEMP 97.5–97.9; O2SAT 93–98
[2025-01-04] MEDS: MESSAGE TO NURSING IV ONE ×3 (03:58→13:46)
[2025-01-04 05:20] LABS: BASOPHILS % (AUTO) 0.6 % (0-1); EOSINOPHILS # (AUTO) 0.4 X10'3 (0-0.9); EOSINOPHILS % (AUTO) 6.8 % (0-6); HEMATOCRIT 27.8 % (42.0-52.0); HEMOGLOBIN 8.9 g/dl (14.0-17.9); LYMPHOCYTES # (AUTO) 1.2 X10'3 (1.1-4.8); LYMPHOCYTES % (AUTO) 23.6 % (21-51); MEAN CORPUSCULAR HEMOGLOBIN 28.5 PG (27.0-31.0); MEAN CORPUSCULAR VOLUME 88.9 FL (78-98); MEAN PLATELET VOLUME 6.5 FL (7.4-10.4); MONOCYTES # (AUTO) 0.6 X10'3 (0-0.9); PLATELET COUNT 181 X10'3 (140-440); RED BLOOD COUNT 3.12 X10'6 (4.70-6.10); WHITE BLOOD COUNT 5.2 X10'3 (4.5-11.0)
[2025-01-04 05:29] LABS: ALANINE AMINOTRANSFERASE 14 U/L (12-78); ALBUMIN 2.1 G/DL (3.4-5.0); ALBUMIN/GLOBULIN RATIO 0.5 (1.1-1.5); ALKALINE PHOSPHATASE 111 IU/L (46-116); ANION GAP 9 (8-16); ASPARTATE AMINO TRANSFERASE 14 U/L (10-37); BILIRUBIN,TOTAL 0.3 MG/DL (0.1-1.0); BLOOD UREA NITROGEN 26 MG/DL (7-18); BUN/CREATININE RATIO 4.7 (10.0-20.0); CALCIUM 8.8 MG/DL (8.5-10.1); CHLORIDE 96 MMOL/L (99-107); CREATININE 5.57 MG/DL (0.60-1.10); GLUCOSE 88 MG/DL (70-104); POTASSIUM 3.6 MMOL/L (3.5-5.1); SODIUM 131 MMOL/L (135-145); TOTAL CARBON DIOXIDE 25.6 MMOL/L (24-32); TOTAL PROTEIN 6.4 G/DL (6.4-8.2); eCRCL 14 ML/MIN; eGFR 10 ML/MIN
[2025-01-04] MEDS: heparin 10,000 units/1 ML INJ IV PRN (13:43)
[2025-01-04] MEDS: heparin 25,000 UNIT/250ml bag 250 ML IV PRN (17:40)
[2025-01-05] VITALS (11 sets, daily range): BP systolic 101–120; BP diastolic 52–65; PULSE 75–82; RESP 14–20; TEMP 97.7–98.5; O2SAT 92–96
[2025-01-05 07:01] LABS: PREALBUMIN 20.7 MG/DL (19-36)
[2025-01-05 08:46] LABS: BASOPHILS % (AUTO) 0.5 % (0-1); EOSINOPHILS # (AUTO) 0.4 X10'3 (0-0.9); EOSINOPHILS % (AUTO) 5.6 % (0-6); HEMOGLOBIN 8.9 g/dl (14.0-17.9); LYMPHOCYTES % (AUTO) 15.4 % (21-51); MEAN CORPUSCULAR HEMOGLOBIN 28.2 PG (27.0-31.0); MEAN CORPUSCULAR HGB CONC 31.8 g/dL (33.0-36.5); MEAN CORPUSCULAR VOLUME 88.6 FL (78-98); MONOCYTES # (AUTO) 0.6 X10'3 (0-0.9); MONOCYTES % (AUTO) 9.2 % (2-12); NEUTROPHILS # (AUTO) 4.6 X10'3 (1.8-7.7); NEUTROPHILS % (AUTO) 69.3 % (42-75); PLATELET COUNT 191 X10'3 (140-440); RED BLOOD COUNT 3.16 X10'6 (4.70-6.10); WHITE BLOOD COUNT 6.7 X10'3 (4.5-11.0)
[2025-01-05 09:06] LABS: ALANINE AMINOTRANSFERASE 16 U/L (12-78); ALBUMIN 2.3 G/DL (3.4-5.0); ALBUMIN/GLOBULIN RATIO 0.6 (1.1-1.5); ALKALINE PHOSPHATASE 114 IU/L (46-116); ANION GAP 15 (8-16); ASPARTATE AMINO TRANSFERASE 12 U/L (10-37); BILIRUBIN,TOTAL 0.4 MG/DL (0.1-1.0); BLOOD UREA NITROGEN 37 MG/DL (7-18); BUN/CREATININE RATIO 5.4 (10.0-20.0); CALCIUM 8.6 MG/DL (8.5-10.1); CHLORIDE 93 MMOL/L (99-107); GLUCOSE 75 MG/DL (70-104); POTASSIUM 4.1 MMOL/L (3.5-5.1); SODIUM 129 MMOL/L (135-145); TOTAL PROTEIN 6.4 G/DL (6.4-8.2); eCRCL 11 ML/MIN; eGFR 8 ML/MIN
[2025-01-05] MEDS ORDERED: APIX5TAB3 PO (12:03)
[2025-01-05] MEDS ORDERED: OMEP20CA15 PO (12:03)
[2025-01-05] MEDS ORDERED: MIDO5TAB4 PO (12:03)
[2025-01-05] MEDS ORDERED: LEVO750T68 PO (12:11)
[2025-01-05] MEDS ORDERED: AMI200T PO (12:36)
[2025-01-05] MEDS: acetaminophen 325mg tablet PO PRN (12:59)
[2025-01-05] MEDS ORDERED: apixaban 5mg tablet PO STA (13:21)
[2025-01-05] MEDS ORDERED: gabapentin 300mg capsule PO PRN (15:16)
== END 2025-01-05 14:00 | disposition home health service (06) | DRG 871 ==
LOC: ER 15:37 → CICU 2S 18:00 → PCU 3S 01-04 10:58
PROVIDERS: ADMIT Internal Medicine Critical Care Medicine; ATTEND Internal Medicine Critical Care Medicine
PROC: 05HN33Z Insertion of Infusion Device into Left Internal Jugular Vein, Percutaneous Approach (ICD-10-PCS; 2024-12-30)
PROC: 5A1945Z Respiratory Ventilation, 24-96 Consecutive Hours (ICD-10-PCS; 2024-12-30)
PROC: 0BH17EZ Insertion of Endotracheal Airway into Trachea, Via Natural or Artificial Opening (ICD-10-PCS; 2024-12-30)
PROC: 5A1D70Z Performance of Urinary Filtration, Intermittent, Less than 6 Hours Per Day (ICD-10-PCS; 2024-12-31)
PROC: 5A1D70Z Performance of Urinary Filtration, Intermittent, Less than 6 Hours Per Day (ICD-10-PCS; 2025-01-01)
PROC: 5A09357 Assistance with Respiratory Ventilation, Less than 24 Consecutive Hours, Continuous Positive Airway Pressure (ICD-10-PCS; principal; 2025-01-02)
PROC: 5A09357 Assistance with Respiratory Ventilation, Less than 24 Consecutive Hours, Continuous Positive Airway Pressure (ICD-10-PCS; 2025-01-03)
PROC: 5A1D70Z Performance of Urinary Filtration, Intermittent, Less than 6 Hours Per Day (ICD-10-PCS; 2025-01-03)
PROC: 05HN33Z Insertion of Infusion Device into Left Internal Jugular Vein, Percutaneous Approach (ICD-10-PCS; 2025-01-03)
PROC: 5A09357 Assistance with Respiratory Ventilation, Less than 24 Consecutive Hours, Continuous Positive Airway Pressure (ICD-10-PCS; 2025-01-04)
PROC: 5A09357 Assistance with Respiratory Ventilation, Less than 24 Consecutive Hours, Continuous Positive Airway Pressure (ICD-10-PCS; 2025-01-05)
DX: A41.9 Sepsis, unspecified organism (principal); G93.41 Metabolic encephalopathy; J96.01 Acute respiratory failure with hypoxia; N18.6 End stage renal disease; R65.21 Severe sepsis with septic shock; I21.A1 Myocardial infarction type 2; I13.2 Hypertensive heart and chronic kidney disease with heart failure and with stage 5 chronic kidney disease, or end stage renal disease; G93.40 Encephalopathy, unspecified; I50.32 Chronic diastolic (congestive) heart failure; Z16.12 Extended spectrum beta lactamase (ESBL) resistance; N39.0 Urinary tract infection, site not specified; E11.22 Type 2 diabetes mellitus with diabetic chronic kidney disease; E87.5 Hyperkalemia; B96.20 Unspecified Escherichia coli [E. coli] as the cause of diseases classified elsewhere; D64.9 Anemia, unspecified; G47.33 Obstructive sleep apnea (adult) (pediatric); B96.5 Pseudomonas (aeruginosa) (mallei) (pseudomallei) as the cause of diseases classified elsewhere; J44.9 Chronic obstructive pulmonary disease, unspecified; I48.91 Unspecified atrial fibrillation; Z79.82 Long term (current) use of aspirin; Z80.3 Family history of malignant neoplasm of breast; Z86.73 Personal history of transient ischemic attack (TIA), and cerebral infarction without residual deficits; Z87.442 Personal history of urinary calculi; Z90.49 Acquired absence of other specified parts of digestive tract; Z99.2 Dependence on renal dialysis; Z88.8 Allergy status to other drugs, medicaments and biological substances; Z91.030 Bee allergy status; Z91.041 Radiographic dye allergy status; B96.1 Klebsiella pneumoniae [K. pneumoniae] as the cause of diseases classified elsewhere
CPT/HCPCS: 31500; 36415; 36556; 36600; 71045; 80048; 80053; 80202; 80305; 81001; 82803; 82948; 83036; 83605; 83735; 84100; 84134; 84439; 84443; 84484; 85007; 85018; 85025; 85610; 85730; 86706; 87040; 87070; 87077; 87081; 87088; 87186; 87340; 93005; 93306; 94002; 94003; 94640; 94760; 97110; 97161; 97530; 99285; A4333; A4615; A6196; A6212; A6213; A6243; A6250; A6253; A6258; A6402; A6449; A6590; A7015; C1751; C1758; E1594; G0257; G0378; J0282; J0330; J0692; J0696; J1644; J1815; J2310; J2405; J2470; J2704; J3010; J3370; J3490; J7030; J7040; P9047

== ENCOUNTER 2025-01-17 15:11 | Inpatient (IN) | payer BC, MEDICARE, OTHER ==
[2025-01-17] VITALS (11 sets, daily range): BP systolic 87–111; BP diastolic 32–54; PULSE 65–73; RESP 12–19; TEMP 97.3–97.8; O2SAT 96
[~2025-01-17] VITALS: Ht 172.7 cm; Wt 130.1 kg
[~2025-01-17 15:11] MED LIST changes: +AMI200T PO; +APIX5TAB3 PO; +CARV3.122 PO; -CARV6.253 PO; +CHOL400T57 PO; -FISH OIL; -FLUT16SP11 BOTHNARES; +MIDO5TAB4 PO; +MULT-1085 PO; -MVI; +OMEG-166 PO; +OMEP20CA15 PO; -OMEP40CA21 PO; -PROBIOTIC; -VITAMIN D3
[2025-01-17] MEDS: normal saline 1000ml 1,000 ML IV ONE (15:54)
[2025-01-17] MEDS: CefTRIAXone/D5W-Rocephin 1gm 50 ML IV ONE (16:01)
[2025-01-17 16:09] LABS: BASOPHILS % (AUTO) 0.5 % (0-1); EOSINOPHILS # (AUTO) 0.1 X10'3 (0-0.9); LYMPHOCYTES # (AUTO) 0.8 X10'3 (1.1-4.8); LYMPHOCYTES % (AUTO) 12.4 % (21-51); MEAN CORPUSCULAR HEMOGLOBIN 29.3 PG (27.0-31.0); MEAN CORPUSCULAR HGB CONC 31.6 g/dL (33.0-36.5); MEAN CORPUSCULAR VOLUME 92.8 FL (78-98); MEAN PLATELET VOLUME 6.3 FL (7.4-10.4); MONOCYTES # (AUTO) 0.4 X10'3 (0-0.9); MONOCYTES % (AUTO) 6.5 % (2-12); NEUTROPHILS # (AUTO) 4.9 X10'3 (1.8-7.7); NEUTROPHILS % (AUTO) 78.6 % (42-75); PLATELET COUNT 166 X10'3 (140-440); RED BLOOD COUNT 1.47 X10'6 (4.70-6.10); RED CELL DISTRIBUTION WIDTH 20.9 % (11.5-14.5); WHITE BLOOD COUNT 6.3 X10'3 (4.5-11.0)
[2025-01-17 16:11] LABS: HEMATOCRIT 13.7 % (42.0-52.0); HEMOGLOBIN 4.3 g/dl (14.0-17.9)
[2025-01-17 16:33] LABS: ALANINE AMINOTRANSFERASE 8 U/L (12-78); ALBUMIN/GLOBULIN RATIO 0.6 (1.1-1.5); ALKALINE PHOSPHATASE 75 IU/L (46-116); ANION GAP 7 (8-16); ASPARTATE AMINO TRANSFERASE 11 U/L (10-37); BILIRUBIN,TOTAL 0.3 MG/DL (0.1-1.0); BLOOD UREA NITROGEN 73 MG/DL (7-18); BUN/CREATININE RATIO 11.1 (10.0-20.0); CALCIUM 9.1 MG/DL (8.5-10.1); CHLORIDE 94 MMOL/L (99-107); CREATININE 6.55 MG/DL (0.60-1.10); GLUCOSE 97 MG/DL (70-104); SODIUM 130 MMOL/L (135-145); TOTAL CARBON DIOXIDE 28.9 MMOL/L (24-32); TOTAL PROTEIN 5.2 G/DL (6.4-8.2); eCRCL 10 ML/MIN; eGFR 8 ML/MIN
[2025-01-17 16:47] LABS: UA COLLECTION TYPE FOLEY CATH
[2025-01-17 16:49] LABS: BILIRUBIN,URINE NEGATIVE (Neg); CLARITY,URINE CLOUDY (Clear); COLOR,URINE STRAW (Yellow); GLUCOSE, URINE NEGATIVE (Neg); KETONES,URINE NEGATIVE (Neg); LEUKOCYTE ESTERASE ,URINE LARGE (Neg); NITRITES, URINE NEGATIVE (Neg); OCCULT BLOOD,URINE SMALL (Neg); PROTEIN,URINE 100 mg/dl (Neg); UROBILINOGEN,URINE 0.2 E.U/dL (0.2-1.0)
[2025-01-17 16:53] LABS: BACTERIA,URINE FEW /HPF (Neg); MUCUS STRANDS FEW /LPF (Neg); SQUAMOUS EPITHELIAL CELL,UR MANY /LPF (FEW); TRANSITIONAL EPI CELLS,URINE FEW /HPF; WBC,URINE TNTC /HPF (0-4)
[2025-01-17 17:13] LABS: INR 1.1 INR; PROTHROMBIN TIME 11.4 SECONDS (9.0-12.0)
[2025-01-17 17:29] LABS: OCCULT BLOOD STOOL POSITIVE (Neg)
[2025-01-17] MEDS ORDERED: magnesium hydroxide 30ml (MOM) UD suspension PO PRN (19:15)
[2025-01-17] MEDS ORDERED: HYDROmorphone/PF 0.2 MG/ML SYRINGE IV PRN (19:15)
[2025-01-17] MEDS ORDERED: potassium Cl 40MEQ/1/2NS 520ml 520 ML IV PRN (19:15)
[2025-01-17] MEDS ORDERED: morphine 2 MG/ML inj. syringe IV PRN (19:15)
[2025-01-17] MEDS ORDERED: bisacodyl 10mg suppository rectal RC PRN (19:15)
[2025-01-17] MEDS ORDERED: potassium Cl 20 mEq SR tablet PO PRN ×2 (19:15)
[2025-01-17] MEDS ORDERED: ondansetron/PF 4mg/2ml inj IV PRN (19:15)
[2025-01-17] MEDS ORDERED: magnesium sulf-water 4G/100mL 100 ML IV PRN (19:15)
[2025-01-17] MEDS ORDERED: magnesium sulf-water 2g/50mL 50 ML IV PRN (19:15)
[2025-01-17] MEDS ORDERED: magnesium Cl slow-release 64mg tablet PO PRN (19:15)
[2025-01-17] MEDS ORDERED: mag hydrox/Alum hydrox/simeth 30ml oral suspension PO PRN (19:15)
[2025-01-17] MEDS: normal saline 1000ml 1,000 ML IV SCH (19:40)
[2025-01-17 19:41] LABS: APTT 30 SECONDS (22-32)
[2025-01-17] MEDS: pantoprazole 40MG/NS 100ML BAG 100 ML IV SCH ×2 (19:49→22:20)
[2025-01-17 19:51] LABS: PRO BRAIN NATRIURETIC PEPTIDE 7144 PG/ML (0-125)
[2025-01-17] MEDS: docusate sod 100mg capsule PO SCH (19:59)
[2025-01-17] MEDS: K and/or MAG REPLACEMENT MC SCH (20:00)
[2025-01-17] MEDS ORDERED: albuterol 2.5 MG/3 ML nebule NEB PRN (20:05)
[2025-01-17 21:11] LABS: D-DIMER 0.21 MG/L FEU (0-0.50)
[2025-01-17 21:11] LABS: MEAN CORPUSCULAR HEMOGLOBIN 28.8 PG (27.0-31.0); MEAN CORPUSCULAR HGB CONC 31.5 g/dL (33.0-36.5); MEAN CORPUSCULAR VOLUME 91.4 FL (78-98); MEAN PLATELET VOLUME 6.6 FL (7.4-10.4); PLATELET COUNT 160 X10'3 (140-440); RED BLOOD COUNT 1.62 X10'6 (4.70-6.10); RED CELL DISTRIBUTION WIDTH 20.4 % (11.5-14.5); WHITE BLOOD COUNT 5.6 X10'3 (4.5-11.0)
[2025-01-17 21:16] LABS: HEMATOCRIT 14.8 % (42.0-52.0); HEMOGLOBIN 4.7 g/dl (14.0-17.9)
[2025-01-17 21:17] LABS: OSMOLALITY 299 MOSM/K (280-300)
[2025-01-17 21:19] LABS: TOTAL PROTEIN,URINE RANDOM 195.8 MG/DL
[2025-01-17] MEDS: acetaminophen 325mg tablet PO PRN (21:57)
[2025-01-17] MEDS: ipratropium/albuterol 3ml nebule NEB SCH (23:38)
[2025-01-18] VITALS (43 sets, daily range): BP systolic 83–132; BP diastolic 24–80; PULSE 65–90; RESP 13–20; TEMP 96.5–98.1; O2SAT 85–99
[2025-01-18] MEDS ORDERED: CARV-50 PO (02:27)
[2025-01-18 02:53] LABS: BASOPHILS % (AUTO) 0.8 % (0-1); EOSINOPHILS # (AUTO) 0.2 X10'3 (0-0.9); EOSINOPHILS % (AUTO) 2.8 % (0-6); LYMPHOCYTES # (AUTO) 1.1 X10'3 (1.1-4.8); LYMPHOCYTES % (AUTO) 17.4 % (21-51); MEAN CORPUSCULAR HEMOGLOBIN 29.4 PG (27.0-31.0); MEAN CORPUSCULAR HGB CONC 32.8 g/dL (33.0-36.5); MEAN CORPUSCULAR VOLUME 89.5 FL (78-98); MEAN PLATELET VOLUME 6.1 FL (7.4-10.4); MONOCYTES # (AUTO) 0.5 X10'3 (0-0.9); NEUTROPHILS # (AUTO) 4.3 X10'3 (1.8-7.7); PLATELET COUNT 151 X10'3 (140-440); RED CELL DISTRIBUTION WIDTH 18.9 % (11.5-14.5); WHITE BLOOD COUNT 6.1 X10'3 (4.5-11.0)
[2025-01-18 03:06] LABS: HEMATOCRIT 19.7 % (42.0-52.0); HEMOGLOBIN 6.5 g/dl (14.0-17.9)
[2025-01-18 03:10] LABS: ALANINE AMINOTRANSFERASE 12 U/L (12-78); ALBUMIN 1.8 G/DL (3.4-5.0); ALBUMIN/GLOBULIN RATIO 0.6 (1.1-1.5); ALKALINE PHOSPHATASE 69 IU/L (46-116); ANION GAP 4 (8-16); ASPARTATE AMINO TRANSFERASE 6 U/L (10-37); BILIRUBIN,TOTAL 0.4 MG/DL (0.1-1.0); BLOOD UREA NITROGEN 85 MG/DL (7-18); BUN/CREATININE RATIO 12.9 (10.0-20.0); CALCIUM 8.2 MG/DL (8.5-10.1); CHLORIDE 99 MMOL/L (99-107); CREATININE 6.58 MG/DL (0.60-1.10); GLUCOSE 81 MG/DL (70-104); MAGNESIUM 2.2 MG/DL (1.5-2.4); POTASSIUM 5.1 MMOL/L (3.5-5.1); SODIUM 134 MMOL/L (135-145); TOTAL PROTEIN 4.8 G/DL (6.4-8.2); eCRCL 10 ML/MIN; eGFR 8 ML/MIN
[2025-01-18] MEDS: furosemide 10 MG/1 ML 10ml inj IV ONE (04:14)
[2025-01-18] MEDS: budesonide 0.5mg/2ml UD nebule IH SCH (06:52)
[2025-01-18] MEDS ORDERED: CefTRIAXone/D5W-Rocephin 1gm 50 ML IV SCH (08:00)
[2025-01-18 08:40] LABS: HEMATOCRIT 22.7 % (42.0-52.0); HEMOGLOBIN 7.4 g/dl (14.0-17.9); MEAN CORPUSCULAR HEMOGLOBIN 28.9 PG (27.0-31.0); MEAN CORPUSCULAR HGB CONC 32.5 g/dL (33.0-36.5); MEAN CORPUSCULAR VOLUME 89.1 FL (78-98); MEAN PLATELET VOLUME 6.3 FL (7.4-10.4); PLATELET COUNT 157 X10'3 (140-440); RED BLOOD COUNT 2.55 X10'6 (4.70-6.10); RED CELL DISTRIBUTION WIDTH 18.2 % (11.5-14.5)
[2025-01-18 08:51] LABS: INR 1.1 INR; PROTHROMBIN TIME 11.1 SECONDS (9.0-12.0)
[2025-01-18] MEDS: MEROPENEM 500MG/50ML-NS IVPB 50 ML IV SCH (08:51)
[2025-01-18 08:52] LABS: PHOSPHORUS 4.5 MG/DL (2.3-4.5)
[2025-01-18] MEDS: carvedilol 6.25mg tablet PO SCH (08:54)
[2025-01-18] MEDS: midodrine 5mg tablet PO SCH (08:54)
[2025-01-18] MEDS: duloxetine 30mg CAPSULE.DR PO SCH (08:55)
[2025-01-18] MEDS: amiodarone 200mg tablet PO SCH (08:55)
[2025-01-18 09:45] LABS: MEAN PLATELET VOLUME 6.7 FL (7.4-10.4); RED CELL DISTRIBUTION WIDTH 18.1 % (11.5-14.5)
[2025-01-18 09:46] LABS: HEMOGLOBIN 7.2 g/dl (14.0-17.9); MEAN CORPUSCULAR HEMOGLOBIN 28.8 PG (27.0-31.0); MEAN CORPUSCULAR HGB CONC 32.7 g/dL (33.0-36.5); MEAN CORPUSCULAR VOLUME 88.2 FL (78-98); PLATELET COUNT 153 X10'3 (140-440); RED BLOOD COUNT 2.49 X10'6 (4.70-6.10); WHITE BLOOD COUNT 8.3 X10'3 (4.5-11.0)
[2025-01-18 09:56] LABS: HEMATOCRIT 21.9 % (42.0-52.0)
[2025-01-18] MEDS ORDERED: LIDOcaine 2% Viscous 15ml cup ONE (11:23)
[2025-01-18] MEDS ORDERED: fentaNYL/PF 50MCG/1 ML 2ML syringe ONE ×2 (11:23→11:32)
[2025-01-18] MEDS ORDERED: MIDAZolam 1 MG/ML 5ML VIAL ONE ×2 (11:23→11:32)
[2025-01-18] MEDS ORDERED: normal saline 1000ml 100 ML IV PRN (12:50)
[2025-01-18] MEDS ORDERED: albumin (human) 25% 100ml IV 100 ML IV PRN (12:50)
[2025-01-18 14:37] LABS: HEMATOCRIT 22.3 % (42.0-52.0); HEMOGLOBIN 7.1 g/dl (14.0-17.9); MEAN CORPUSCULAR HEMOGLOBIN 28.5 PG (27.0-31.0); MEAN CORPUSCULAR HGB CONC 31.9 g/dL (33.0-36.5); MEAN CORPUSCULAR VOLUME 89.4 FL (78-98); MEAN PLATELET VOLUME 6.4 FL (7.4-10.4); PLATELET COUNT 153 X10'3 (140-440); RED CELL DISTRIBUTION WIDTH 18.3 % (11.5-14.5); WHITE BLOOD COUNT 7.6 X10'3 (4.5-11.0)
[2025-01-18 14:59] LABS: % IRON SATURATION 34 % (11-46); IRON 70 UG/DL (53-167); TOTAL IRON BINDING CAPACITY 207 UG/DL (259-388)
[2025-01-18] MEDS: EPOETIN ALFA-EPBX 20,000 UNIT/ML 1 ML MDV IV ONE (15:10)
[2025-01-18] MEDS: heparin 1,000 units/ml 10ml inj HE ONE ×2 (16:46)
[2025-01-18] MEDS: mannitol 12.5gm/50mL VIAL IV ONE (16:47)
[2025-01-18] MEDS: gabapentin 300mg capsule PO SCH (19:48)
[2025-01-18 20:14] LABS: HEMATOCRIT 25.6 % (42.0-52.0); HEMOGLOBIN 8.5 g/dl (14.0-17.9); MEAN CORPUSCULAR HEMOGLOBIN 28.8 PG (27.0-31.0); MEAN CORPUSCULAR HGB CONC 33.2 g/dL (33.0-36.5); MEAN CORPUSCULAR VOLUME 86.5 FL (78-98); MEAN PLATELET VOLUME 6.3 FL (7.4-10.4); PLATELET COUNT 161 X10'3 (140-440); RED BLOOD COUNT 2.96 X10'6 (4.70-6.10); RED CELL DISTRIBUTION WIDTH 19.5 % (11.5-14.5); WHITE BLOOD COUNT 7.6 X10'3 (4.5-11.0)
[2025-01-18 20:27] LABS: INR 1.1 INR; PROTHROMBIN TIME 11.2 SECONDS (9.0-12.0)
[2025-01-19] VITALS (11 sets, daily range): BP systolic 87–121; BP diastolic 43–62; PULSE 70–96; RESP 16–20; TEMP 97.1–100.1; O2SAT 94–97
[2025-01-19 08:03] LABS: INR 1.1 INR; PROTHROMBIN TIME 11.7 SECONDS (9.0-12.0)
[2025-01-19 08:22] LABS: BASOPHILS % (AUTO) 0.5 % (0-1); EOSINOPHILS # (AUTO) 0.1 X10'3 (0-0.9); EOSINOPHILS % (AUTO) 1.1 % (0-6); HEMATOCRIT 22.4 % (42.0-52.0); HEMOGLOBIN 7.3 g/dl (14.0-17.9); LYMPHOCYTES # (AUTO) 0.8 X10'3 (1.1-4.8); MEAN CORPUSCULAR HEMOGLOBIN 28.7 PG (27.0-31.0); MEAN CORPUSCULAR HGB CONC 32.6 g/dL (33.0-36.5); MEAN PLATELET VOLUME 6.1 FL (7.4-10.4); MONOCYTES # (AUTO) 0.6 X10'3 (0-0.9); MONOCYTES % (AUTO) 8.8 % (2-12); NEUTROPHILS # (AUTO) 5.6 X10'3 (1.8-7.7); NEUTROPHILS % (AUTO) 78.6 % (42-75); PLATELET COUNT 157 X10'3 (140-440); RED BLOOD COUNT 2.55 X10'6 (4.70-6.10); WHITE BLOOD COUNT 7.1 X10'3 (4.5-11.0)
[2025-01-19 08:24] LABS: ALANINE AMINOTRANSFERASE 6 U/L (12-78); ALBUMIN 1.7 G/DL (3.4-5.0); ALBUMIN/GLOBULIN RATIO 0.5 (1.1-1.5); ALKALINE PHOSPHATASE 76 IU/L (46-116); ANION GAP 9 (8-16); ASPARTATE AMINO TRANSFERASE 11 U/L (10-37); BILIRUBIN,TOTAL 0.3 MG/DL (0.1-1.0); BLOOD UREA NITROGEN 62 MG/DL (7-18); BUN/CREATININE RATIO 12.3 (10.0-20.0); CALCIUM 8.2 MG/DL (8.5-10.1); CHLORIDE 102 MMOL/L (99-107); CREATININE 5.03 MG/DL (0.60-1.10); GLUCOSE 80 MG/DL (70-104); MAGNESIUM 2.1 MG/DL (1.5-2.4); PHOSPHORUS 3.7 MG/DL (2.3-4.5); POTASSIUM 4.1 MMOL/L (3.5-5.1); SODIUM 136 MMOL/L (135-145); TOTAL CARBON DIOXIDE 24.7 MMOL/L (24-32); TOTAL PROTEIN 4.9 G/DL (6.4-8.2); eCRCL 13 ML/MIN; eGFR 11 ML/MIN
[2025-01-19 10:13] LABS: ANISOCYTOSIS 2+; PLATELET ESTIMATE NORMAL; POLYCHROMASIA FEW
[2025-01-19] MEDS: oxyCODONE/APAP 10/325mg tablet PO PRN (15:19)
[2025-01-19 20:55] LABS: PROTHROMBIN TIME 10.9 SECONDS (9.0-12.0)
[2025-01-19] MEDS: gabapentin 100mg capsule PO SCH (21:00)
[2025-01-19] MEDS: HYDROcodone/acetaminophen 5mg/325mg tablet PO PRN (21:41)
[2025-01-20] VITALS (24 sets, daily range): BP systolic 77–104; BP diastolic 39–78; PULSE 62–96; RESP 14–22; TEMP 96.7–99.4; O2SAT 92–100
[2025-01-20] MEDS ORDERED: albumin (human) 25% 100ml IV 100 ML IV PRN (05:40)
[2025-01-20 07:54] LABS: BASOPHILS % (AUTO) 0.6 % (0-1); EOSINOPHILS # (AUTO) 0.1 X10'3 (0-0.9); LYMPHOCYTES # (AUTO) 0.5 X10'3 (1.1-4.8); MEAN CORPUSCULAR HEMOGLOBIN 29.5 PG (27.0-31.0); MEAN CORPUSCULAR HGB CONC 32.8 g/dL (33.0-36.5); MEAN PLATELET VOLUME 6.2 FL (7.4-10.4); MONOCYTES # (AUTO) 0.3 X10'3 (0-0.9); NEUTROPHILS # (AUTO) 3.8 X10'3 (1.8-7.7); NEUTROPHILS % (AUTO) 78.4 % (42-75); PLATELET COUNT 131 X10'3 (140-440); RED BLOOD COUNT 2.35 X10'6 (4.70-6.10); RED CELL DISTRIBUTION WIDTH 21.6 % (11.5-14.5); WHITE BLOOD COUNT 4.9 X10'3 (4.5-11.0)
[2025-01-20 08:02] LABS: HEMOGLOBIN 6.9 g/dl (14.0-17.9)
[2025-01-20 08:03] LABS: HEMATOCRIT 21.2 % (42.0-52.0)
[2025-01-20 08:08] LABS: ALANINE AMINOTRANSFERASE 8 U/L (12-78); ALBUMIN 1.8 G/DL (3.4-5.0); ALBUMIN/GLOBULIN RATIO 0.6 (1.1-1.5); ALKALINE PHOSPHATASE 78 IU/L (46-116); ANION GAP 8 (8-16); ASPARTATE AMINO TRANSFERASE 11 U/L (10-37); BILIRUBIN,TOTAL 0.3 MG/DL (0.1-1.0); BLOOD UREA NITROGEN 59 MG/DL (7-18); BUN/CREATININE RATIO 11.2 (10.0-20.0); CHLORIDE 104 MMOL/L (99-107); CREATININE 5.25 MG/DL (0.60-1.10); GLUCOSE 94 MG/DL (70-104); MAGNESIUM 1.9 MG/DL (1.5-2.4); PHOSPHORUS 3.8 MG/DL (2.3-4.5); POTASSIUM 3.8 MMOL/L (3.5-5.1); SODIUM 139 MMOL/L (135-145); TOTAL CARBON DIOXIDE 27.1 MMOL/L (24-32); TOTAL PROTEIN 4.9 G/DL (6.4-8.2); eCRCL 12 ML/MIN; eGFR 11 ML/MIN
[2025-01-20 08:21] LABS: INR 1.1 INR; PROTHROMBIN TIME 11.2 SECONDS (9.0-12.0)
[2025-01-20] MEDS: EPOETIN ALFA-EPBX 20,000 UNIT/ML 1 ML MDV IV ONE (08:30)
[2025-01-20] MEDS: heparin 1,000 units/ml 10ml inj HE ONE ×2 (08:39→08:40)
[2025-01-20 18:54] LABS: HEMATOCRIT 25.1 % (42.0-52.0); HEMOGLOBIN 8.3 g/dl (14.0-17.9); MEAN CORPUSCULAR HEMOGLOBIN 29.4 PG (27.0-31.0); MEAN CORPUSCULAR HGB CONC 33.2 g/dL (33.0-36.5); MEAN CORPUSCULAR VOLUME 88.7 FL (78-98); MEAN PLATELET VOLUME 6.4 FL (7.4-10.4); PLATELET COUNT 149 X10'3 (140-440); RED BLOOD COUNT 2.83 X10'6 (4.70-6.10); RED CELL DISTRIBUTION WIDTH 20.6 % (11.5-14.5); WHITE BLOOD COUNT 5.9 X10'3 (4.5-11.0)
[2025-01-20 19:02] LABS: INR 1.1 INR
[2025-01-20 19:11] LABS: PROTHROMBIN TIME 11.3 SECONDS (9.0-12.0)
[2025-01-20] MEDS: nystatin 15 GM powder TP SCH (20:00)
[2025-01-20] MEDS: pantoprazole 40 MG vial IV SCH (21:18)
[2025-01-21] VITALS (8 sets, daily range): BP systolic 90–109; BP diastolic 41–51; PULSE 65–92; RESP 14–22; TEMP 97.1–98.9; O2SAT 92–97
[2025-01-21 08:09] LABS: BASOPHILS % (AUTO) 0.8 % (0-1); EOSINOPHILS # (AUTO) 0.1 X10'3 (0-0.9); HEMATOCRIT 24.4 % (42.0-52.0); HEMOGLOBIN 7.9 g/dl (14.0-17.9); LYMPHOCYTES # (AUTO) 0.7 X10'3 (1.1-4.8); LYMPHOCYTES % (AUTO) 18.1 % (21-51); MEAN CORPUSCULAR HEMOGLOBIN 29.1 PG (27.0-31.0); MEAN CORPUSCULAR HGB CONC 32.3 g/dL (33.0-36.5); MEAN CORPUSCULAR VOLUME 90.2 FL (78-98); MEAN PLATELET VOLUME 6.4 FL (7.4-10.4); MONOCYTES # (AUTO) 0.5 X10'3 (0-0.9); MONOCYTES % (AUTO) 14.2 % (2-12); NEUTROPHILS # (AUTO) 2.4 X10'3 (1.8-7.7); NEUTROPHILS % (AUTO) 63.9 % (42-75); PLATELET COUNT 147 X10'3 (140-440); RED CELL DISTRIBUTION WIDTH 21.8 % (11.5-14.5); WHITE BLOOD COUNT 3.8 X10'3 (4.5-11.0)
[2025-01-21 08:26] LABS: INR 1.1 INR; PROTHROMBIN TIME 11.2 SECONDS (9.0-12.0)
[2025-01-21 08:32] LABS: ALANINE AMINOTRANSFERASE 8 U/L (12-78); ALBUMIN 1.8 G/DL (3.4-5.0); ALBUMIN/GLOBULIN RATIO 0.5 (1.1-1.5); ALKALINE PHOSPHATASE 81 IU/L (46-116); ANION GAP 8 (8-16); ASPARTATE AMINO TRANSFERASE 10 U/L (10-37); BILIRUBIN,TOTAL 0.3 MG/DL (0.1-1.0); BLOOD UREA NITROGEN 40 MG/DL (7-18); BUN/CREATININE RATIO 7.6 (10.0-20.0); CALCIUM 8.3 MG/DL (8.5-10.1); CHLORIDE 105 MMOL/L (99-107); CREATININE 5.23 MG/DL (0.60-1.10); GLUCOSE 86 MG/DL (70-104); MAGNESIUM 1.9 MG/DL (1.5-2.4); PHOSPHORUS 4.4 MG/DL (2.3-4.5); POTASSIUM 4.4 MMOL/L (3.5-5.1); SODIUM 140 MMOL/L (135-145); TOTAL CARBON DIOXIDE 26.7 MMOL/L (24-32); TOTAL PROTEIN 5.1 G/DL (6.4-8.2); eCRCL 13 ML/MIN; eGFR 11 ML/MIN
[2025-01-21 09:16] LABS: ANISOCYTOSIS 3+; PLATELET ESTIMATE NORMAL
[2025-01-21 09:17] LABS: POLYCHROMASIA FEW
[2025-01-21] MEDS ORDERED: PANT40TA54 PO (10:31)
== END 2025-01-21 12:36 | disposition home health service (06) | DRG 377 ==
LOC: ER 15:12 → ED HOLD 19:23 → PCU 3S 01-18 14:00
PROVIDERS: ADMIT Internal Medicine Pulmonary Disease; ATTEND Internal Medicine
PROC: 30233N1 Transfusion of Nonautologous Red Blood Cells into Peripheral Vein, Percutaneous Approach (ICD-10-PCS; 2025-01-17)
PROC: 0DB68ZX Excision of Stomach, Via Natural or Artificial Opening Endoscopic, Diagnostic (ICD-10-PCS; principal; 2025-01-18)
PROC: 0DB78ZX Excision of Stomach, Pylorus, Via Natural or Artificial Opening Endoscopic, Diagnostic (ICD-10-PCS; 2025-01-18)
PROC: 5A1D70Z Performance of Urinary Filtration, Intermittent, Less than 6 Hours Per Day (ICD-10-PCS; 2025-01-18)
PROC: 5A1D70Z Performance of Urinary Filtration, Intermittent, Less than 6 Hours Per Day (ICD-10-PCS; 2025-01-20)
DX: K29.71 Gastritis, unspecified, with bleeding (principal); G93.41 Metabolic encephalopathy; J96.21 Acute and chronic respiratory failure with hypoxia; N18.6 End stage renal disease; R57.1 Hypovolemic shock; I13.2 Hypertensive heart and chronic kidney disease with heart failure and with stage 5 chronic kidney disease, or end stage renal disease; N39.0 Urinary tract infection, site not specified; E87.1 Hypo-osmolality and hyponatremia; N17.9 Acute kidney failure, unspecified; D61.818 Other pancytopenia; I50.32 Chronic diastolic (congestive) heart failure; N20.0 Calculus of kidney; I95.9 Hypotension, unspecified; F32.A Depression, unspecified; K21.9 Gastro-esophageal reflux disease without esophagitis; N40.0 Benign prostatic hyperplasia without lower urinary tract symptoms; D50.8 Other iron deficiency anemias; G47.33 Obstructive sleep apnea (adult) (pediatric); E11.22 Type 2 diabetes mellitus with diabetic chronic kidney disease; J44.9 Chronic obstructive pulmonary disease, unspecified; Z91.030 Bee allergy status; Z91.041 Radiographic dye allergy status; Z79.82 Long term (current) use of aspirin; Z79.01 Long term (current) use of anticoagulants; Z79.899 Other long term (current) drug therapy; Z90.49 Acquired absence of other specified parts of digestive tract; Z87.891 Personal history of nicotine dependence; Z86.73 Personal history of transient ischemic attack (TIA), and cerebral infarction without residual deficits; Z99.2 Dependence on renal dialysis
CPT/HCPCS: 36415; 36430; 43239; 71045; 74176; 76770; 80053; 81001; 82272; 82728; 83540; 83550; 83605; 83735; 83880; 83930; 83935; 84100; 84133; 84156; 84300; 85008; 85025; 85027; 85379; 85610; 85730; 86885; 86900; 86901; 86920; 87040; 87081; 87088; 93308; 94640; 94760; 97161; 97530; 99152; 99291; A4615; A4620; A6212; A6213; A6590; C1758; E1594; G0257; G0378; J0696; J1644; J1940; J2150; J2185; J2250; J2470; J3010; J7030; J7040; J7050; P9016; Q4081

== ENCOUNTER 2025-02-27 06:19 | Day surgery (SDC) | payer BC, MEDICARE ==
[~2025-02-27] VITALS: Ht 170.2 cm; Wt 118.2 kg
[~2025-02-27 06:19] MED LIST changes: +CARV-50 PO; -CARV3.122 PO; -FLO0.4C PO; +PANT40TA54 PO; +TAMS-55 PO
[2025-02-27] MEDS ORDERED: [UNRECOGNIZED DRUG - CODE] PO (07:07)
[2025-02-27] MEDS ORDERED: MIDO10TA3 PO (07:07)
[2025-02-27] MEDS ORDERED: OMEP40CA21 PO (07:07)
[2025-02-27] MEDS ORDERED: AMIO200T27 PO (07:07)
[2025-02-27 07:19] VITALS: BP 107/51; PULSE 65; RESP 18; TEMP 97.8; O2SAT 97
[2025-02-27] MEDS ORDERED: normal saline 1000ml 1,000 ML IV PRN (07:30)
[2025-02-27] MEDS ORDERED: LIDOcaine 1% 30ml preserv. free vial SQ STA (08:29)
[2025-02-27 08:30] VITALS: BP 112/61; PULSE 68; RESP 16; O2SAT 97
[2025-02-27 08:50] VITALS: BP 98/56; PULSE 69; RESP 18; O2SAT 96
[2025-02-27 10:27] VITALS: RESP 18; O2SAT 97
== END 2025-02-27 09:50 | disposition home or self-care (01) ==
LOC: SSTAY O 06:19
PROVIDERS: ATTEND Nurse Practitioner Family
DX: Z49.01 Encounter for fitting and adjustment of extracorporeal dialysis catheter (principal); N18.6 End stage renal disease; I12.0 Hypertensive chronic kidney disease with stage 5 chronic kidney disease or end stage renal disease; J96.10 Chronic respiratory failure, unspecified whether with hypoxia or hypercapnia; I13.2 Hypertensive heart and chronic kidney disease with heart failure and with stage 5 chronic kidney disease, or end stage renal disease; K21.9 Gastro-esophageal reflux disease without esophagitis
CPT/HCPCS: 36589; A6222; J7030; A4615; A6258; A6449

== ENCOUNTER 2025-04-04 14:13 | Inpatient (IN) | payer BC, MEDICARE ==
[~2025-04-04] VITALS: Ht 172.7 cm; Wt 125.0 kg
[2025-04-04] VITALS (7 sets, daily range): BP systolic 94–126; BP diastolic 39–69; PULSE 74–87; RESP 15–18; TEMP 98–99.3; O2SAT 91–93
[~2025-04-04 14:13] MED LIST changes: -ALBU90AE INH; -AMI200T PO; +AMIO200T27 PO; -APIX5TAB3 PO; -ASPI-1264 PO; -CHOL400T57 PO; +MIDO10TA3 PO; -MIDO5TAB4 PO; -OMEP20CA15 PO; +OMEP40CA21 PO; -PANT40TA54 PO; +[UNRECOGNIZED DRUG - CODE] PO
--- NOTE | 2025-04-04 14:29 | Physician Documentation ---
History of Present Illness ~ Chief Complaint: Hypotension Stated Complaint: LOW H&H? Time Seen by MD: 14:46 OK to notify your PCP?: Yes Primary Medical Doctor: Entry for 03/24/2024 Source: patient, family Mode of Arrival: POV Exam Limitations: no limitations HPI Chief Complaint: �I do not feel well�, referred here from dialysis for hemoglobin of 6.3 Caveat: None Independent Historians: Son History of Present Illness: 70-year-old male presenting to our emergency department with his for reports of a low H&H of 6.3. He receives hemodialysis on Sunday, , and Saturdays and did receive hemodialysis today but no excess fluid was removed due to low blood pressure. He reports feeling short of breath despite being on 4 L of home oxygen. He does have a history of COPD with a normal SpO2 of around 90. Denies any recent illness or surgeries. Patient's only acute complaint is that he �does not feel good� and that he gets "cold spells" when he goes to dialysis. Patient denies any dizziness. Patient denies any shortness of breath or chest pain. Patient denies any nausea vomiting diarrhea. Patient denies any black stool or blood in the stool. Patient denies abdominal pain. Patient denies any fever. Review of systems: All systems were reviewed and are negative except for what is indicated in the history of present illness. Past Medical History: COPD, obstructive sleep apnea, atrial fibrillation, HFpEF, EF 50-55%, chronic back pain, BPH, end-stage renal disease on dialysis Sun//Sun Past Surgical History: Noncontributory Social History: No tobacco use, no alcohol use, no drug use Medications: Reviewed as documented Nursing Notes Allergies: Reviewed as documented in Nursing Notes Medication Reconciliation Allergies: Coded Allergies: Iodinated Contrast Media (Verified Allergy, Severe, SOB, DIAPHORETIC, 01/17/25) bee venom protein (honey bee) (Verified Allergy, Unknown, 05/31/24) iodine (Verified Adverse Reaction, Intermediate, SEE COMMENTS, 01/17/25) 1998 post ivp- pt c/o chest and abd pain- to er- no treatment needed- resolved. Scheduled Amiodarone HCl (Amiodarone HCl), 1 TAB PO BID, (Reported) Aspirin (Aspirin), 1 TAB PO DAILY, (Reported) Calcium Acetate (Calcium Acetate), 2 CAP PO TID, (Reported) Carvedilol* (Coreg*), 0.5 TABLET PO BID, (Reported) Duloxetine HCl (Duloxetine HCl), 60 MG PO DAILY, (Reported) Fluticasone/Umeclidin/Vilanter (Trelegy Ellipta 100-62.5-25), 1 PUFFS INH QAM, (Reported) Folic Acid/Vitamin B Comp W-C (Dialyvite Tablet), 1 TAB PO DAILY, (Reported) Gabapentin (Gabapentin), 0.5 TAB PO HS, (Reported) Midodrine Hcl (Midodrine Hcl), 1 TAB PO DAILY, (Reported) Multivitamin (Multi Vitamin Daily), 1 TAB PO DAILY, (Reported) [place]-3/Dha/Epa/Fish Oil (Fish Oil 1,000 Mg Ec Softgel), 1 CAP PO Q12H, (Reported) Omeprazole (Prilosec), 2 CAP PO BID, (Reported) Tamsulosin Hcl* (Flomax*), 1 CAP PO DAILY, (Reported) Scheduled PRN Diazepam (Diazepam), 5 MG PO DAILY PRN for anxiety, (Reported) Modafinil (Modafinil), 1 TAB PO DAILY PRN for ED, (Reported) Oxycodone HCl/Acetaminophen (Percocet 10-325 mg Tablet), 1 TAB PO Q8H PRN for pain, (Reported) Past Medical History Past Medical History: Congestive Heart Failure, Hypertension, COPD, Gastritis, GERD, Acute Kidney Injury, Chronic Kidney Disease, Dialysis, Kidney Stones, UTI, Chronic Back Pain, Bipolar, Depression Past Surgical History: appendectomy, cholecystectomy, orthopedic surgeries Patient History: (DM Type 2) Diabetes mellitus type 2 MOTHER ( ), , Age: 68, Cause: of unknown cause FH: breast cancer MOTHER ( ), , Age: 68, Cause: of unknown cause FH: stroke FATHER, , Age: 69, Cause: of unknown cause Alcohol Use: Occasionally Drug Use: none Lives with: S/O Lives In: Home Review of Systems All Other Systems at this time: Reviewed and Negative ROS Patient denies any other acute symptoms other than above. All other systems are negative Physical Exam Vital Signs: RN Vital Signs have been reviewed: Yes, Temperature: 99.3, Source: Temporal, Heart Rate: 88, Respiratory Rate: 22, BP: 92/45, Pulse Oximetry: 4 Pulse Oximetry Reflects: adequate oxygenation Physical Exam General Appearance: DISTRESS HEENT: Normal OP, moist oral mucosa, PERRL, EOMI, PALE CONJUNCTIVA Neck: supple, normal ROM, trachea midline Pulmonary: No respiratory distress, CTA, BS equal Cardiac: RRR, no murmur, rub or gallop, GI: nondistended, soft, nontender, normal bowel sounds, no guarding, no rebound Extremities: normal ROM, no swelling, non-tender Skin: intact, dry, warm, no rashes, PALE APPEARING Neuro: LETHARGIC, Ox3, speech is clear, no focal motor weakness Psych: normal affect, good eye contact, no apparent hallucination, normal speech Progress Results/Orders Results/Orders Orders - LOLA MELENDEZ MD Urinalysis, Cult If Indicated (04/04/25 14:53) Type And Screen (04/04/25 14:53) Lrpc - Active Bleeding (04/04/25 14:53) Occult Bld Stool (04/04/25 14:53) Page Hospitalist (04/04/25 15:45) Fill Out Med Reconciliation (04/04/25 15:45) Completed Orders - LOLA MELENDEZ MD PTT (04/04/25 14:53) Pt Inr (04/04/25 14:53) Vital Signs 04/04/25 04/04/25 04/04/25 04/04/25 14:21 14:59 15:00 15:09 Temp 99.3 Pulse 88 80 Resp 22 18 18 B/P (MAP) 92/45 89/49 (62) Pulse Ox 4 94 94 O2 Delivery Nasal Cannula* O2 Flow Rate 4 4.0 FiO2 36 Laboratory Tests Test 04/04/25 14:42 White Blood Count 4.9 Red Blood Count 2.35 L Hemoglobin 7.0 *L Hematocrit 21.4 *L Mean Corpuscular Volume 91.0 Mean Corpuscular Hemoglobin 29.8 Mean Corpuscular Hemoglobin Concent 32.7 L Red Cell Distribution Width 19.7 H Platelet Count 172 Mean Platelet Volume 5.8 L Neutrophils (%) (Auto) 82.4 H Lymphocytes (%) (Auto) 5.9 L Monocytes (%) (Auto) 8.7 Eosinophils (%) (Auto) 2.7 Basophils (%) (Auto) 0.3 Neutrophils # (Auto) 4.1 Lymphocytes # (Auto) 0.3 L Monocytes # (Auto) 0.4 Eosinophils # (Auto) 0.1 Basophils # (Auto) 0.0 CBC Comment Differential Total Cells Counted 100 Neutrophils % (Manual) 82.0 H Lymphocytes % (Manual) 6.0 L Monocytes % (Manual) 10.0 Eosinophils % (Manual) 2.0 Nucleated Red Blood Cells 1 H Platelet Estimate Normal Red Blood Cell Morphology Perf Polychromasia 2+ Basophilic Stippling Anisocytosis 2+ Stomatocytes 1+ Prothrombin Time 10.3 INR International Normalized Ratio 1.0 Activated Partial Thromboplast Time 26 Coagulation Comments Sodium Level 136 Potassium Level 3.3 L Chloride Level 96 L Carbon Dioxide Level 34.7 H Anion Gap 5 L Blood Urea Nitrogen 14 Creatinine 3.06 H Estimated GFR/1.73 m2 20 BUN/Creatinine Ratio 4.6 L Glucose Level 112 H Calcium Level 8.4 L Total Bilirubin 0.3 Direct Bilirubin 0.1 Aspartate Amino Transf (AST/SGOT) 12 Alanine Aminotransferase (ALT/SGPT) 11 L Alkaline Phosphatase 94 Troponin I High Sensitivity 11 Total Protein 6.2 L Albumin 2.6 L Globulin 3.6 Albumin/Globulin Ratio 0.7 L Chemistry Comments Medical Decision Making Additional info obtained from: old records Findings Differential diagnosis includes but is not limited to: GI BLEED, SEPSIS, AUTONOMIC DYSFUNCTION, ANEMIA EKG independent interpretation: Performed at 2:36 p.m.. Normal sinus rhythm, heart rate 82, PACs, normal axis, low voltage, normal ST segments Chest x-ray, single view, indication: Hypotension Independent interpretation: Lungs are clear, normal mediastinum, normal cardiac silhouette. Poor inspiratory view. No acute cardiopulmonary process Laboratory data independent interpretation: CBC: Anemia with hemoglobin of 7 CMP: Potassium mildly low at 3.3, creatinine elevated at 3.06, BUN is normal at 14. Urinalysis: Emergency department course/medical decision-making: Patient is a 70-year-old man referred here for hypotension and hemoglobin is 6.3. However the patient's hypotension is likely secondary to his autonomic dysfunction. Patient is currently on midodrine in his blood pressure normally runs around 90-100 systolic. Patient is not tachycardic. Patient is afebrile. Do not suspect sepsis or infection. Patient isn't having any symptoms of acute coronary syndrome. Patient is not given any IV fluids. No fluid was removed at dialysis. Patient has a hemoglobin now is seven. That has given 1 unit of packed red blood cells. Recommend admission. There was no evidence for GI bleed. Patient has not had any melena or blood in the stool. No hematemesis. Test results and treatment plan reviewed with the patient and his son. Consultation/communications: 4:01 p.m.: Case discussed with the hospitalist/resident. He will see the patient. Departure Time of Disposition: 15:40 Admitted to Inpatient Unit: to hospitalist Admission Level of Care: Med/Surg Impression: Primary Impression: Hypotension Qualified Codes: I95.9 - Hypotension, unspecified Additional Impressions: Severe anemia requiring transfusion End-stage renal disease on hemodialysis Education Educated: Patient, Family Educated regarding: diagnosis, treatment Signature Scribe Signature: No scribe Attestation: No scribe CAITLYN REN April 04, 2025 14:29 LOLA MELENDEZ MD April 04, 2025 15:04
--- NOTE | 2025-04-04 14:39 | ELECTROCARDIOGRAPH REPORT ---
[facility] Test Date: 2025-04-04 Test Time: 14:36:02 Pat Name: ALFONSO HANDLEY Department: [facility]- Patient ID: [facility]-[id number] Room: ORTHO [facility] Gender: M Contract Administrator: : [id number] Requested By: CAITLYN REN Order Number: [id number] Reading MD: Dr. Maria D Rose Measurements Intervals [place] Rate: 82 P: 43 OR: 203 QRS: -4 QRSD: 112 T: 57 QT: 407 QTc: 476 Interpretive Statements Sinus rhythm Atrial premature complexes Borderline intraventricular conduction delay Low voltage, precordial leads Borderline T abnormalities, anterior leads Electronically Signed On 04-05-2025 13:04:[address] Maria D Rose Please click the below link to view image of tracing.
[2025-04-04 14:55] LABS: BASOPHILS % (AUTO) 0.3 % (0-1); EOSINOPHILS # (AUTO) 0.1 X10'3 (0-0.9); EOSINOPHILS % (AUTO) 2.7 % (0-6); LYMPHOCYTES # (AUTO) 0.3 X10'3 (1.1-4.8); LYMPHOCYTES % (AUTO) 5.9 % (21-51); MEAN CORPUSCULAR HEMOGLOBIN 29.8 PG (27.0-31.0); MEAN CORPUSCULAR HGB CONC 32.7 g/dL (33.0-36.5); MEAN PLATELET VOLUME 5.8 FL (7.4-10.4); MONOCYTES # (AUTO) 0.4 X10'3 (0-0.9); MONOCYTES % (AUTO) 8.7 % (2-12); NEUTROPHILS # (AUTO) 4.1 X10'3 (1.8-7.7); NEUTROPHILS % (AUTO) 82.4 % (42-75); PLATELET COUNT 172 X10'3 (140-440); RED BLOOD COUNT 2.35 X10'6 (4.70-6.10); RED CELL DISTRIBUTION WIDTH 19.7 % (11.5-14.5); WHITE BLOOD COUNT 4.9 X10'3 (4.5-11.0)
[2025-04-04 14:58] LABS: HEMATOCRIT 21.4 % (42.0-52.0)
[2025-04-04 14:59] LABS: ALBUMIN 2.6 G/DL (3.4-5.0); ANION GAP 5 (8-16); BLOOD UREA NITROGEN 14 MG/DL (7-18); BUN/CREATININE RATIO 4.6 (10.0-20.0); CALCIUM 8.4 MG/DL (8.5-10.1); CHLORIDE 96 MMOL/L (99-107); CREATININE 3.06 MG/DL (0.60-1.10); GLUCOSE 112 MG/DL (70-104); POTASSIUM 3.3 MMOL/L (3.5-5.1); SODIUM 136 MMOL/L (135-145); TOTAL CARBON DIOXIDE 34.7 MMOL/L (24-32); eGFR 20 ML/MIN
[2025-04-04 15:12] LABS: APTT 26 SECONDS (22-32); PROTHROMBIN TIME 10.3 SECONDS (9.0-12.0)
[2025-04-04 15:13] LABS: ALANINE AMINOTRANSFERASE 11 U/L (12-78); ALBUMIN/GLOBULIN RATIO 0.7 (1.1-1.5); ALKALINE PHOSPHATASE 94 IU/L (46-116); ASPARTATE AMINO TRANSFERASE 12 U/L (10-37); BILIRUBIN,DIRECT 0.1 MG/DL (0-0.3); BILIRUBIN,TOTAL 0.3 MG/DL (0.1-1.0); TOTAL PROTEIN 6.2 G/DL (6.4-8.2)
[2025-04-04 15:22] LABS: ANISOCYTOSIS 2+; NUCLEATED RED BLOOD CELLS 1 /100WBC (0-0); PLATELET ESTIMATE NORMAL; TOTAL CELLS COUNTED 100
[2025-04-04 15:23] LABS: POLYCHROMASIA 2+; STOMATOCYTES 1+
--- NOTE | 2025-04-04 15:48 | RADIOLOGY REPORT ---
DI CHEST,SINGLE VIEW, HISTORY: SOB COMPARISON: DI CHEST,SINGLE VIEW on DOS: 01/17/25, DI CHEST,SINGLE VIEW on DOS: 01/03/25, DI CHEST,SINGL E VIEW on DOS: 01/01/25 DI CHEST,SINGLE VIEW on DOS: 01/17/25, DI CHEST,SINGLE VIEW on DOS: 01/03/25, DI CHEST,SINGLE VIEW on DO S: 01/01/25 TECHNICAL DATA: 1 view of the chest was obtained. FINDINGS: Lines and tubes: None Cardiomediastinal silhouette: Prominent Pulmonary vasculature: normal Lung expansion: low Lung airspace: Lung interstitium: normal Pleura: normal Pneumothorax: no Bones: Unremarkable Other: no IMPRESSION: Left basilar patchy airspace opacity could be atelectasis. Cardiomegaly.
[2025-04-04] MEDS ORDERED: potassium Cl 20 mEq SR tablet PO PRN ×2 (16:05)
[2025-04-04] MEDS ORDERED: potassium Cl 40MEQ/1/2NS 520ml 520 ML IV PRN (16:05)
--- NOTE | 2025-04-04 18:17 | HISTORY AND PHYSICAL-Residence ---
History & Physical Providers to CC Resident Creating Document: NARCISO CHAPMAN, RES CC: KANDI GIANG MD ~ History of Present Illness Primary Medical Doctor: Entry for 03/24/2024 Reason for Admit\Complaint: Low H/H History of Present Illness A 70-year-old male with a past medical history of CKD stage IV on hemodialysis on Sunday, , Sunday schedule was referred to the ED in view of low H/H at the [facility] dialysis [facility]. Patient denies hematemesis, melena. Patient endorses nosebleeds frequently with the last episode happened one week ago but has very little bleed. Patient endorses shortness of breaths. Patient denies dizziness, falls, orthopnea, PND, chest pain. Patient was admitted in December this year for low hemoglobin where an EGD was done and EGD did not reveal any significant findings or active bleeding. Patient underwent colonoscopy many years ago that does not remember. Allergies: Coded Allergies: Iodinated Contrast Media (Verified Allergy, Severe, SOB, DIAPHORETIC, 01/17/25) bee venom protein (honey bee) (Verified Allergy, Unknown, 05/31/24) iodine (Verified Adverse Reaction, Intermediate, SEE COMMENTS, 01/17/25) 1998 post ivp- pt c/o chest and abd pain- to er- no treatment needed- resolved. Home Medications Home Medications Active Reported Aspirin 325 Mg Tablet 1 Tab PO DAILY Prilosec (Omeprazole) 40 Mg Capsule 2 Cap PO BID Midodrine Hcl 10 Mg Tablet 1 Tab PO DAILY Amiodarone HCl 200 Mg Tablet 1 Tab PO BID Gabapentin 600 Mg Tablet 0.5 Tab PO HS 30 Days Flomax* (Tamsulosin HCl) 0.4 Mg Cap.sr.24h 1 Cap PO DAILY 30 Days Coreg* (Carvedilol) 12.5 Mg Tablet 0.5 Tablet PO BID Multi Vitamin Daily (Multivitamin) 1 Each Tablet 1 Tab PO DAILY 30 Days Fish Oil 1,000 Mg Ec Softgel ([place]-3/Dha/Epa/Fish Oil) 300 Mg-1,000 Mg Capsule.dr 1 Cap PO Q12H 30 Days Dialyvite Tablet (Folic Acid/Vitamin B Comp W-C) Unknown Strength Tablet 1 Tab PO DAILY 30 Days Modafinil 200 Mg Tablet 1 Tab PO DAILY PRN Trelegy Ellipta 100-62.5-25 (Fluticasone/Umeclidin/Vilanter) 100-62.5 Blst.w.dev 1 Puffs INH QAM Calcium Acetate 667 Mg Capsule 2 Cap PO TID Diazepam 5 Mg Tablet 5 Mg PO DAILY PRN 30 Days Percocet 10-325 mg Tablet (Oxycodone HCl/Acetaminophen) 10 Mg-325 Mg Tablet 1 Tab PO Q8H PRN MDD 6 Tablet(s) Duloxetine HCl 60 Mg Capsule.dr 60 Mg PO DAILY 30 Days Past Medical History Past Medical History Congestive heart failure HTN Chronic respiratory failure secondary to chronic COPD on 3 L oxygen at home Guarded CKD stage 4 on dialysis Renal stones Urinary tract infections Chronic back pain Depression Charcot foot Tardive dyskinesia Past Surgical History Surgical History Comment Appendectomy Cholecystectomy Orthopedic surgeries Family History Family History: (DM Type 2) Diabetes mellitus type 2 MOTHER ( ), , Age: 68, Cause: of unknown cause FH: breast cancer MOTHER ( ), , Age: 68, Cause: of unknown cause FH: stroke FATHER, , Age: 69, Cause: of unknown cause Past Social History Social History Comment Lives at home with his Uses a wheelchair to move around [facility] for primary care Dr. Doe for Nephrology Dr. Barahona for cardiology Quit smoking in 2014, smoked four packs of cigarettes per day for 50 years Drinks 2-3 beers in an ear, occasional alcohol Denies marijuana or illicit drug use Smoking: Non-Smoker, Cigarettes Alcohol Use: Occasionally Drug Use: None Lives with: S/O Lives In: Home ROS ROS All other systems reviewed in full and negative except for the pertinent positives mentioned in the HPI Exam Vitals: Vital Signs Date Time Temp Pulse Resp B/P (MAP) Pulse Ox O2 Delivery O2 Flow Rate FiO2 04/04/25 15:09 18 04/04/25 15:00 80 89/49 (62) 94 4.0 04/04/25 14:59 Nasal Cannula* 36 04/04/25 14:21 99.3 General: General: Morbidly obese male, Alert, awake, oriented, not in acute distress HEENT: PERRLA, no icterus, pallor, lymphadenopathy, carotid bruit Respiratory system: Bilateral vesicular breath sounds heard, bilateral crackles in all lung regions present CVS: S1-S2 heard, no murmurs/rubs/gallop GI: Soft, nontender, no organomegaly, no guarding/rigidity, bowel sounds present Neuro: No focal neurological deficits present Extremities: 1+ pitting edema present in bilateral feet, No cyanosis clubbing/deformities Musculoskeletal: No deformity Skin: Warm and dry Psych: Normal mood and affect Diagnostic Data Last Recorded Lab Results: 04/04/25 1442 04/04/25 1442 Diagnostic Data: Laboratory Tests Test 04/04/25 14:42 Prothrombin Time 10.3 SECONDS (9.0-12.0) INR International Normalized Ratio 1.0 INR Activated Partial Thromboplast Time 26 SECONDS (22-32) Coagulation Comments Advance Care Planning Advanced Care plannin - 30 Minutes (I spent 20 minutes discussing various resuscitative measures and the patient decided to be full code) Additional Plan Assessment: A 70-year-old male with past medical history of COPD, hypertension, CKD stage 4 on dialysis presented to the ED in view of low H/H. Patient was admitted for the evaluation and management of symptomatic anemia. Plan: Symptomatic normochromic normocytic anemia Could have been secondary to CKD H/H: 06/15.4 Consider 1 unit PRBC transfusion Patient refused rectal examination, follow up with stool occult test Follow up with chest x-ray Patient might benefit from erythropoietin supplementation Follow up with iron studies Transfuse if hemoglobin less than seven Patient was not have any active bleeding Patient might benefit from colonoscopy Previous EGD in December,: Normal without any significant findings or active bleeding CKD stage 4, on dialysis TTS EGFR: 20 Baseline creatinine: 3.02 Currently at baseline creatinine Dr. Perez (music typographer) consulted. Awaiting recommendations Hypovolemia 500 mL IV normal saline bolus Watch for fluid overload COPD not in acute exacerbation Obstructive sleep apnea On 4 L oxygen which is his usual baseline CPAP at night daily DuoNeb q.4h. HFpEF, not in acute exacerbation Echo in 01/20:Mid anteroseptum segment is hypokinetic. Mild concentric hypertrophy. Overall LVEF is 50-55%.Right ventricle is severely dilated with mildly reduced function. Estimated PA systolic pressure is 40 mmHg. Pending medical reconciliation, we will restart all medications once reconciled HTN Continue to monitor vitals Pending med rec Code status: Full code Diet: Renal diet DVT prophylaxis: SCD Disposition: Admit to ortho, continue to monitor vitals and telemetry, watch for fluid overload. Awaiting Nephrology recommendations Narciso Chapman MD Internal Medicine, PGY 1 Date of Service: April 04, 2025 Billing Provider: KANDI GIANG MD,NARCISO, RES April 04, 2025 18:17
[2025-04-04] MEDS: pantoprazole 40 MG vial IV SCH (18:25)
[2025-04-04] MEDS ORDERED: ipratropium/albuterol 3ml nebule NEB PRN (18:30)
[2025-04-04 18:59] LABS: % IRON SATURATION 6 % (11-46); IRON 16 UG/DL (53-167); TOTAL IRON BINDING CAPACITY 277 UG/DL (259-388)
[2025-04-04 19:06] LABS: FERRITIN 89 NG/ML (26-388)
[2025-04-04] MEDS: normal saline 500ml IV soln 500 ML IV ONE (20:30)
[2025-04-04] MEDS: acetaminophen 325mg tablet PO STA (21:21)
[2025-04-04 23:04] LABS: HEMATOCRIT 22.3 % (42.0-52.0); HEMOGLOBIN 7.3 g/dl (14.0-17.9); MEAN CORPUSCULAR HEMOGLOBIN 29.5 PG (27.0-31.0); MEAN CORPUSCULAR HGB CONC 32.7 g/dL (33.0-36.5); MEAN CORPUSCULAR VOLUME 90.1 FL (78-98); MEAN PLATELET VOLUME 6.1 FL (7.4-10.4); PLATELET COUNT 139 X10'3 (140-440); RED BLOOD COUNT 2.48 X10'6 (4.70-6.10); RED CELL DISTRIBUTION WIDTH 18.7 % (11.5-14.5); WHITE BLOOD COUNT 4.5 X10'3 (4.5-11.0)
[2025-04-05] VITALS (18 sets, daily range): BP systolic 98–130; BP diastolic 41–64; PULSE 69–90; RESP 13–22; TEMP 97.9–98.6; O2SAT 92–97
[2025-04-05 05:58] LABS: BASOPHILS % (AUTO) 0.7 % (0-1); EOSINOPHILS # (AUTO) 0.1 X10'3 (0-0.9); EOSINOPHILS % (AUTO) 1.8 % (0-6); HEMATOCRIT 22.3 % (42.0-52.0); HEMOGLOBIN 7.5 g/dl (14.0-17.9); LYMPHOCYTES # (AUTO) 0.6 X10'3 (1.1-4.8); MEAN CORPUSCULAR HEMOGLOBIN 30.3 PG (27.0-31.0); MEAN CORPUSCULAR HGB CONC 33.4 g/dL (33.0-36.5); MEAN CORPUSCULAR VOLUME 90.5 FL (78-98); MEAN PLATELET VOLUME 6.5 FL (7.4-10.4); MONOCYTES # (AUTO) 0.7 X10'3 (0-0.9); MONOCYTES % (AUTO) 17.3 % (2-12); NEUTROPHILS # (AUTO) 2.4 X10'3 (1.8-7.7); NEUTROPHILS % (AUTO) 64.2 % (42-75); PLATELET COUNT 150 X10'3 (140-440); RED BLOOD COUNT 2.46 X10'6 (4.70-6.10); RED CELL DISTRIBUTION WIDTH 18.6 % (11.5-14.5); WHITE BLOOD COUNT 3.8 X10'3 (4.5-11.0)
[2025-04-05 06:10] LABS: ALANINE AMINOTRANSFERASE 12 U/L (12-78); ALBUMIN 2.2 G/DL (3.4-5.0); ALBUMIN/GLOBULIN RATIO 0.7 (1.1-1.5); ALKALINE PHOSPHATASE 85 IU/L (46-116); ANION GAP 9 (8-16); ASPARTATE AMINO TRANSFERASE 5 U/L (10-37); BILIRUBIN,TOTAL 0.3 MG/DL (0.1-1.0); BLOOD UREA NITROGEN 19 MG/DL (7-18); BUN/CREATININE RATIO 4.5 (10.0-20.0); CALCIUM 8.2 MG/DL (8.5-10.1); CHLORIDE 95 MMOL/L (99-107); CREATININE 4.23 MG/DL (0.60-1.10); GLUCOSE 81 MG/DL (70-104); MAGNESIUM 1.9 MG/DL (1.5-2.4); PHOSPHORUS 2.6 MG/DL (2.3-4.5); POTASSIUM 3.8 MMOL/L (3.5-5.1); SODIUM 138 MMOL/L (135-145); TOTAL CARBON DIOXIDE 34.1 MMOL/L (24-32); TOTAL PROTEIN 5.4 G/DL (6.4-8.2); eCRCL 15 ML/MIN; eGFR 14 ML/MIN
[2025-04-05 06:13] LABS: APTT 28 SECONDS (22-32); INR 1.1 INR; PROTHROMBIN TIME 10.8 SECONDS (9.0-12.0)
[2025-04-05] MEDS: acetaminophen 325mg tablet PO PRN (09:13)
[2025-04-05] MEDS ORDERED: albumin (human) 25% 100ml IV 100 ML IV PRN (10:10)
--- NOTE | 2025-04-05 14:57 | CONSULTATION REPORT ---
Consult Providers to CC ~ History of Present Illness Primary Medical Doctor: Cain Seth MD Reason for Admit\Complaint: Anemia, critical, with fluid overload History of Present Illness This 70 /M is well known to me through the dialysis center, where he gets regularly HD three times a week. He was transfered to ER as his hb dropped to 6.5 and he was feeling weak. He alos has edema of the upper and lower extremitiesd, and runs low Bp sometimes, making it hard to remove fluids. He uses O2 at home. He is accompanied by his that works here. He denies any chest pain, or hemoptysis. He has some resting shortness of breath. Allergies: Coded Allergies: Iodinated Contrast Media (Verified Allergy, Severe, SOB, DIAPHORETIC, 01/17/25) bee venom protein (honey bee) (Verified Allergy, Unknown, 05/31/24) iodine (Verified Adverse Reaction, Intermediate, SEE COMMENTS, 01/17/25) 1998 post ivp- pt c/o chest and abd pain- to er- no treatment needed- resolved. Home Medications Home Medications Active Reported Aspirin 325 Mg Tablet 1 Tab PO DAILY Prilosec (Omeprazole) 40 Mg Capsule 2 Cap PO BID Midodrine Hcl 10 Mg Tablet 1 Tab PO DAILY Amiodarone HCl 200 Mg Tablet 1 Tab PO BID Gabapentin 600 Mg Tablet 0.5 Tab PO HS 30 Days Flomax* (Tamsulosin HCl) 0.4 Mg Cap.sr.24h 1 Cap PO DAILY 30 Days Coreg* (Carvedilol) 12.5 Mg Tablet 0.5 Tablet PO BID Multi Vitamin Daily (Multivitamin) 1 Each Tablet 1 Tab PO DAILY 30 Days Fish Oil 1,000 Mg Ec Softgel ([place]-3/Dha/Epa/Fish Oil) 300 Mg-1,000 Mg Capsule.dr 1 Cap PO Q12H 30 Days Dialyvite Tablet (Folic Acid/Vitamin B Comp W-C) Unknown Strength Tablet 1 Tab PO DAILY 30 Days Modafinil 200 Mg Tablet 1 Tab PO DAILY PRN Trelegy Ellipta 100-62.5-25 (Fluticasone/Umeclidin/Vilanter) 100-62.5 Blst.w.dev 1 Puffs INH QAM Calcium Acetate 667 Mg Capsule 2 Cap PO TID Diazepam 5 Mg Tablet 5 Mg PO DAILY PRN 30 Days Percocet 10-325 mg Tablet (Oxycodone HCl/Acetaminophen) 10 Mg-325 Mg Tablet 1 Tab PO Q8H PRN MDD 6 Tablet(s) Duloxetine HCl 60 Mg Capsule.dr 60 Mg PO DAILY 30 Days Past Medical History Past Medical History ESRD, on HD, with left upper extremity AV fistula Congestive heart failure HTN Chronic respiratory failure secondary to chronic COPD on 3 L oxygen at home Renal stones Urinary tract infections Chronic back pain Depression Charcot foot Tardive dyskinesia Past Surgical History Surgical History Comment AVF placement, multiple ESBL Urinary tract infections Appendectomy Cholecystectomy Orthopedic surgeries Family History Family History: (DM Type 2) Diabetes mellitus type 2 MOTHER ( ), , Age: 68, Cause: of unknown cause FH: breast cancer MOTHER ( ), , Age: 68, Cause: of unknown cause FH: stroke FATHER, , Age: 69, Cause: of unknown cause Past Social History Social History Comment non smoker, non alcoholic. no drug abuse. ROS ROS as explained abov.e some shortness of breath, with morbid obesity, functioning AV fistula left upper arm, without chest pain, or fevers. Exam Vitals: Vital Signs Date Time Temp Pulse Resp B/P (MAP) Pulse Ox O2 Delivery O2 Flow Rate FiO2 04/05/25 11:18 72 20 95 Nasal Cannula* 4 36 04/05/25 10:00 98.6 106/41 (62) General: AAO x 3 on nasal O2 anasarca noticeable CV S: RRRRS:cta Abd: BS+ neuro: non focal. Diagnostic Data Last Recorded Lab Results: 04/05/25 0442 04/05/25 0442 Diagnostic Data: Laboratory Tests Test 04/05/25 04:42 Prothrombin Time 10.8 SECONDS (9.0-12.0) INR International Normalized Ratio 1.1 INR Activated Partial Thromboplast Time 28 SECONDS (22-32) Coagulation Comments Problems: (1) Anemia Status: Chronic Assessment & Plan: s/p transfusion and is being monitored by residency team. possible GI consult and colonoscopy if needed. (2) End-stage renal disease on hemodialysis Status: Chronic Assessment & Plan: HD today and aim for 4-5 liters off as tolerated. LUCIO BULL MD April 05, 2025 14:57
[2025-04-05] MEDS ORDERED: diazepam 5mg tablet PO PRN (15:35)
[2025-04-05] MEDS ORDERED: modafinil 100mg tablet PO PRN (15:35)
--- NOTE | 2025-04-05 15:45 | PROGRESS NOTE- Residence ---
Progress Note - Resident Providers to CC Resident Creating Document: NARCISO ESPANA RES CC: KANDI GIANG MD ~ Antibiotic Timeout Antibiotic Ordered?: No Subjective Patient was examined at bedside. Patient was in 1 unit of transfusion yesterday. Patient was not have any active bleeding. Patient seems to be fluid overloaded. Objective Vital Signs Date Time Temp Pulse Resp B/P (MAP) Pulse Ox O2 Delivery O2 Flow Rate FiO2 04/05/25 11:18 72 20 95 Nasal Cannula* 4 36 04/05/25 10:00 98.6 106/41 (62) Result Diagram: 04/05/2544104/05/25441 General: Morbidly obese male, Alert, awake, oriented, not in acute distress HEENT: PERRLA, no icterus, pallor, lymphadenopathy, carotid bruit Respiratory system: Bilateral vesicular breath sounds heard, bilateral crackles in all lung regions present CVS: S1-S2 heard, no murmurs/rubs/gallop GI: Soft, nontender, no organomegaly, no guarding/rigidity, bowel sounds present Neuro: No focal neurological deficits present Extremities: 1+ pitting edema present in bilateral feet, No cyanosis clubbing/deformities Musculoskeletal: No deformity Skin: Warm and dry Psych: Normal mood and affect Coagulation Studies Laboratory Tests Test 04/05/25 04:42 Prothrombin Time 10.8 SECONDS (9.0-12.0) INR International Normalized Ratio 1.1 INR Activated Partial Thromboplast Time 28 SECONDS (22-32) Coagulation Comments Assessment Assessment A 70-year-old male with past medical history of COPD, hypertension, CKD stage 4 on dialysis presented to the ED in view of low H/H. Patient was admitted for the evaluation and management of symptomatic anemia. Plan Plan Symptomatic normochromic normocytic anemia Secondary to CKD H/H: Stable post 1 unit transfusion Patient might benefit from erythropoietin supplementation Low iron, % saturation, started on iron supplementation once daily Transfuse if hemoglobin less than seven ESRD, on dialysis TTS EGFR: 20 Baseline creatinine: 3.02 Currently at baseline creatinine Dr. Doe (shell mold bonder) recommended dialysis today. Hypovolemia Vitals stable 500 mL IV normal saline bolus Watch for fluid overload COPD not in acute exacerbation Obstructive sleep apnea On 4 L oxygen which is his usual baseline CPAP at night daily DuoNeb q.4h. HFpEF, not in acute exacerbation Echo in 01/20:Mid anteroseptum segment is hypokinetic. Mild concentric hypertrophy. Overall LVEF is 50-55%.Right ventricle is severely dilated with mildly reduced function. Estimated PA systolic pressure is 40 mmHg. Started on carvedilol, aspirin Can not be started on SGLT2, potassium sparing diuretics, ALVIN/ARNi in view of kidney function HTN Continue to monitor vitals BPH Continue tamsulosin 0.4 mg p.o. HS Code status: Full code Diet: Renal diet DVT prophylaxis: SCD Disposition: Continue care in [facility], scheduled for dialysis today Narciso Espana MD Internal Medicine, PGY 1 Date of Service: April 05, 2025 Billing Provider: KANDI GIANG MD, SIVA, RES April 05, 2025 15:45
[2025-04-05] MEDS: LIDOcaine 1% (10mg/ml) 2ml vial SQ ONE (16:26)
[2025-04-05 17:17] LABS: ALANINE AMINOTRANSFERASE 12 U/L (12-78); ALBUMIN 2.2 G/DL (3.4-5.0); ALBUMIN/GLOBULIN RATIO 0.7 (1.1-1.5); ALKALINE PHOSPHATASE 83 IU/L (46-116); ASPARTATE AMINO TRANSFERASE 10 U/L (10-37); BILIRUBIN,DIRECT 0.1 MG/DL (0-0.3); BILIRUBIN,TOTAL 0.2 MG/DL (0.1-1.0); THYROID STIMULATING HORMONE 1.25 ulU/ml (0.34-4.50); TOTAL PROTEIN 5.2 G/DL (6.4-8.2)
[2025-04-05] MEDS: EPOETIN ALFA-EPBX 20,000 UNIT/ML 1 ML MDV IV ONE (17:39)
[2025-04-05] MEDS: amiodarone 200mg tablet PO SCH (21:31)
[2025-04-05] MEDS: calcium acetate 667mg (PhosLO) capsule PO SCH (21:32)
[2025-04-05] MEDS: carvedilol 6.25mg tablet PO SCH (21:32)
[2025-04-05] MEDS: gabapentin 300mg capsule PO SCH (21:32)
[2025-04-05] MEDS: OMEGA-3/DHA/EPA/FISH OIL 1 EACH CAPSULE.DR PO SCH (21:32)
[2025-04-05] MEDS: pantoprazole 40mg Tablet.DR PO SCH (21:32)
[2025-04-05] MEDS: oxyCODONE/APAP 10/325mg tablet PO PRN (21:42)
[2025-04-06 06:00] VITALS: BP 122/57; PULSE 73; RESP 18; TEMP 98.6; O2SAT 96
[2025-04-06 06:33] LABS: BASOPHILS % (AUTO) 0.7 % (0-1); EOSINOPHILS # (AUTO) 0.1 X10'3 (0-0.9); EOSINOPHILS % (AUTO) 1.6 % (0-6); HEMATOCRIT 27.6 % (42.0-52.0); HEMOGLOBIN 8.9 g/dl (14.0-17.9); LYMPHOCYTES # (AUTO) 0.7 X10'3 (1.1-4.8); LYMPHOCYTES % (AUTO) 15.5 % (21-51); MEAN CORPUSCULAR HEMOGLOBIN 29.3 PG (27.0-31.0); MEAN CORPUSCULAR HGB CONC 32.3 g/dL (33.0-36.5); MEAN CORPUSCULAR VOLUME 90.8 FL (78-98); MEAN PLATELET VOLUME 6.1 FL (7.4-10.4); MONOCYTES # (AUTO) 1.1 X10'3 (0-0.9); MONOCYTES % (AUTO) 24.4 % (2-12); NEUTROPHILS # (AUTO) 2.6 X10'3 (1.8-7.7); NEUTROPHILS % (AUTO) 57.8 % (42-75); PLATELET COUNT 171 X10'3 (140-440); RED BLOOD COUNT 3.04 X10'6 (4.70-6.10); RED CELL DISTRIBUTION WIDTH 19.2 % (11.5-14.5); WHITE BLOOD COUNT 4.6 X10'3 (4.5-11.0)
[2025-04-06 06:47] LABS: INR 1.1 INR
[2025-04-06] MEDS: ferrous sulfate 325mg tablet PO SCH (06:54)
[2025-04-06] MEDS: aspirin 325mg tablet PO SCH (06:56)
[2025-04-06] MEDS: tamsulosin 0.4mg capsule PO SCH (06:56)
[2025-04-06] MEDS: multivitamins, therapeutics tablet PO SCH (06:57)
[2025-04-06] MEDS: duloxetine 30mg CAPSULE.DR PO SCH (06:58)
[2025-04-06 06:59] LABS: ALANINE AMINOTRANSFERASE 10 U/L (12-78); ALBUMIN 2.5 G/DL (3.4-5.0); ALBUMIN/GLOBULIN RATIO 0.7 (1.1-1.5); ALKALINE PHOSPHATASE 88 IU/L (46-116); ANION GAP 6 (8-16); ASPARTATE AMINO TRANSFERASE 11 U/L (10-37); BILIRUBIN,TOTAL 0.3 MG/DL (0.1-1.0); BLOOD UREA NITROGEN 12 MG/DL (7-18); CALCIUM 8.8 MG/DL (8.5-10.1); CHLORIDE 102 MMOL/L (99-107); CREATININE 4.04 MG/DL (0.60-1.10); GLUCOSE 94 MG/DL (70-104); MAGNESIUM 2.1 MG/DL (1.5-2.4); PHOSPHORUS 2.6 MG/DL (2.3-4.5); POTASSIUM 3.7 MMOL/L (3.5-5.1); SODIUM 140 MMOL/L (135-145); TOTAL CARBON DIOXIDE 31.9 MMOL/L (24-32); TOTAL PROTEIN 6.2 G/DL (6.4-8.2); eCRCL 16 ML/MIN; eGFR 15 ML/MIN
[2025-04-06] MEDS: midodrine 5mg tablet PO SCH (06:59)
[2025-04-06] MEDS: Fluticasone/Umeclidin/Vilanter (Trelegy Ellipta 100-62.5-25) INHALER IH SCH (07:01)
[2025-04-06 07:32] LABS: APTT 27 SECONDS (22-32)
[2025-04-06 08:47] LABS: NUCLEATED RED BLOOD CELLS 1 /100WBC (0-0); TOTAL CELLS COUNTED 100
[2025-04-06 08:49] LABS: ANISOCYTOSIS 2+; LARGE PLATELETS FEW; PLATELET ESTIMATE NORMAL
[2025-04-06] MEDS: ondansetron/PF 4mg/2ml inj IV PRN (09:25)
[2025-04-06 10:00] VITALS: BP 99/43; PULSE 71; RESP 20; TEMP 98; O2SAT 93
--- NOTE | 2025-04-06 13:44 | PROGRESS NOTE ---
Progress Note Dictate Providers to CC ~ Central Line/PICC still needed: No Patricia Indications Met/Not Met: F/C Indications Not Met Antibiotic Ordered?: N/A Subjective Subjective He was dialyzed yesterday. s/p transfusions. Hbis up to 8.8 today. Objective Vitals Vital Signs Date Time Temp Pulse Resp B/P (MAP) Pulse Ox O2 Delivery O2 Flow Rate FiO2 04/06/25 18:50 15 04/06/25 16:56 70 94 Nasal Cannula* 3 32 04/06/25 10:00 98.0 99/43 (61) Lab Results: 04/06/25 0600 04/06/25 0600 Objective Vital Signs: As above General: Obese body habitus, no acute distress. Skin: No rashes, lumps, ulcers, blisters, purpura or petechiae HEENT: Anicteric sclera, ALEXANDER Neck: Supple and nontender without enlargement of the thyroid, or lymphadenopathy. Chest: Normal size and shape, no tenderness, CTA bilaterally Heart: Regular. No jugular venous distention, S1 and S2 heard , no gallop Abdomen: Soft and non tender no organomegaly,BS+ Extremities:edema better. Neuro: Nonfocal. Coagulation Studies Laboratory Tests Test 04/06/25 06:00 Prothrombin Time 11.0 SECONDS (9.0-12.0) INR International Normalized Ratio 1.1 INR Activated Partial Thromboplast Time 27 SECONDS (22-32) Coagulation Comments Advance Care Planning Advanced Care plannin - 30 Minutes Problem\Assessment\Plan Problems/Diagnosis: (1) Anemia Assessment & Plan: s/p transfusion and is being monitored by residency team. ? discharge plans (2) End-stage renal disease on hemodialysis Assessment & Plan: HD was done yesterday. about 4.5 liters of fluid removed. Sepsis Screening Skin Color: Normal LUCIO BULL MD April 06, 2025 13:44
[2025-04-06 16:56] VITALS: PULSE 70; RESP 20; O2SAT 94
[2025-04-06 18:00] VITALS: BP 103/56; PULSE 70; RESP 18; TEMP 98.1; O2SAT 93
[2025-04-06 22:00] VITALS: BP 128/58; PULSE 67; RESP 18; TEMP 98.2; O2SAT 94
[2025-04-07 06:00] VITALS: BP 112/60; PULSE 66; RESP 18; TEMP 97.8; O2SAT 93
[2025-04-07 06:30] LABS: BASOPHILS % (AUTO) 0.8 % (0-1); EOSINOPHILS # (AUTO) 0.2 X10'3 (0-0.9); EOSINOPHILS % (AUTO) 4.5 % (0-6); HEMATOCRIT 26.9 % (42.0-52.0); HEMOGLOBIN 8.6 g/dl (14.0-17.9); LYMPHOCYTES # (AUTO) 0.7 X10'3 (1.1-4.8); LYMPHOCYTES % (AUTO) 16.9 % (21-51); MEAN CORPUSCULAR HEMOGLOBIN 29.3 PG (27.0-31.0); MEAN CORPUSCULAR VOLUME 91.8 FL (78-98); MEAN PLATELET VOLUME 6.5 FL (7.4-10.4); MONOCYTES # (AUTO) 0.8 X10'3 (0-0.9); NEUTROPHILS # (AUTO) 2.4 X10'3 (1.8-7.7); NEUTROPHILS % (AUTO) 57.8 % (42-75); PLATELET COUNT 167 X10'3 (140-440); RED BLOOD COUNT 2.93 X10'6 (4.70-6.10); RED CELL DISTRIBUTION WIDTH 19.3 % (11.5-14.5); WHITE BLOOD COUNT 4.2 X10'3 (4.5-11.0)
[2025-04-07 06:49] LABS: APTT 27 SECONDS (22-32); PROTHROMBIN TIME 10.5 SECONDS (9.0-12.0)
[2025-04-07 07:05] LABS: ALANINE AMINOTRANSFERASE 12 U/L (12-78); ALBUMIN 2.5 G/DL (3.4-5.0); ALBUMIN/GLOBULIN RATIO 0.7 (1.1-1.5); ALKALINE PHOSPHATASE 93 IU/L (46-116); ANION GAP 8 (8-16); ASPARTATE AMINO TRANSFERASE 10 U/L (10-37); BILIRUBIN,TOTAL 0.3 MG/DL (0.1-1.0); BLOOD UREA NITROGEN 27 MG/DL (7-18); BUN/CREATININE RATIO 4.5 (10.0-20.0); CALCIUM 8.7 MG/DL (8.5-10.1); CHLORIDE 98 MMOL/L (99-107); CREATININE 5.94 MG/DL (0.60-1.10); GLUCOSE 92 MG/DL (70-104); MAGNESIUM 2.1 MG/DL (1.5-2.4); PHOSPHORUS 3.7 MG/DL (2.3-4.5); POTASSIUM 4.1 MMOL/L (3.5-5.1); SODIUM 137 MMOL/L (135-145); TOTAL CARBON DIOXIDE 30.6 MMOL/L (24-32); eCRCL 11 ML/MIN; eGFR 9 ML/MIN
--- NOTE | 2025-04-07 07:24 | PROGRESS NOTE- Residence ---
Progress Note - Resident Providers to CC Resident Creating Document: NARCISO ESPANA RES CC: KANDI GIANG MD ~ Antibiotic Timeout Antibiotic Ordered?: No Subjective Late note for 04/06/25. Patient was examined at bedside. No subjective complaints or acute overnight events. Patient underwent hemodialysis yesterday. Objective Vital Signs Date Time Temp Pulse Resp B/P (MAP) Pulse Ox O2 Delivery O2 Flow Rate FiO2 04/07/25 06:00 97.8 66 18 112/60 (77) 93 Nasal Cannula 3.0 04/06/25 20:00 32 Result Diagram: 04/07/2537 04/07/2537 General: Morbidly obese male, Alert, awake, oriented, not in acute distress HEENT: PERRLA, no icterus, pallor, lymphadenopathy, carotid bruit Respiratory system: Bilateral vesicular breath sounds heard, bilateral crackles in all lung regions present (improving) CVS: S1-S2 heard, no murmurs/rubs/gallop GI: Soft, nontender, no organomegaly, no guarding/rigidity, bowel sounds present Neuro: No focal neurological deficits present Extremities: 1+ pitting edema present in bilateral feet, No cyanosis clubbing/deformities Musculoskeletal: No deformity Skin: Warm and dry Psych: Normal mood and affect Coagulation Studies Laboratory Tests Test 04/07/25 05:37 Prothrombin Time 10.5 SECONDS (9.0-12.0) INR International Normalized Ratio 1.0 INR Activated Partial Thromboplast Time 27 SECONDS (22-32) Coagulation Comments Assessment Assessment A 70-year-old male with past medical history of COPD, hypertension, CKD stage 4 on dialysis presented to the ED in view of low H/H. Patient was admitted for the evaluation and management of symptomatic anemia. Plan Plan Symptomatic normochromic normocytic anemia Secondary to CKD H/H: Stable post 1 unit transfusion Patient might benefit from erythropoietin supplementation Low iron, % saturation, started on iron supplementation once daily Transfuse if hemoglobin less than seven ESRD, on dialysis TTS EGFR: 20 Baseline creatinine: 3.02 Currently at baseline creatinine HD done yesterday with 4.5 L of fluid removed Hypovolemia Vitals stable Watch for fluid overload COPD not in acute exacerbation Obstructive sleep apnea On 4 L oxygen which is his usual baseline CPAP at night daily DuoNeb q.4h. HFpEF, not in acute exacerbation Echo in 01/20:Mid anteroseptum segment is hypokinetic. Mild concentric hypertrophy. Overall LVEF is 50-55%.Right ventricle is severely dilated with mildly reduced function. Estimated PA systolic pressure is 40 mmHg. Started on carvedilol, aspirin Can not be started on SGLT2, potassium sparing diuretics, ALVIN/ARNi in view of kidney function HTN Continue to monitor vitals BPH Continue tamsulosin 0.4 mg p.o. HS Code status: Full code Diet: Renal diet DVT prophylaxis: SCD Disposition: Continue care in ortho, probable discharge tomorrow Narciso Espana MD Internal Medicine, PGY 1 Date of Service: April 06, 2025 Billing Provider: KANDI GIANG MD, SIVA, RES April 07, 2025 07:24
[2025-04-07 07:47] VITALS: PULSE 78; RESP 16; O2SAT 97
[2025-04-07 07:53] VITALS: PULSE 76; RESP 16
[2025-04-07] MEDS ORDERED: FER325T PO (07:54)
[2025-04-07 08:00] VITALS: RESP 18; O2SAT 93
[2025-04-07 09:11] LABS: HBSAG SCREEN Negative (Negative)
--- NOTE | 2025-04-07 09:54 | PROGRESS NOTE- Residence ---
Progress Note - Resident Providers to CC Resident Creating Document: INEZ OSORIO RES CC: BRENNAN BULL MD ~ Central Line/PICC still needed: N\A Antibiotic Timeout Antibiotic Ordered?: No Subjective Patient is seen today morning. No acute overnight events. Status post two PRBC transfusion with hemoglobin up to 8.6 today. He had undergone dialysis yesterday. He is usually on TTS schedule. As per primary team he is getting discharged today. He will go to the dialysis center today after discharge. Objective Vital Signs Date Time Temp Pulse Resp B/P (MAP) Pulse Ox O2 Delivery O2 Flow Rate FiO2 04/07/25 07:53 76 16 Nasal Cannula 4.0 04/07/25 07:47 97 36 04/07/25 06:00 97.8 112/60 (77) Result Diagram: 04/07/2537 04/07/2537 General: Elderly male, AAO x4, obese, not in apparent distress Head: Normocephalic with an atraumatic Eyes: Pupils- 3mm, reacting to light, conjunctiva- anicteric Nose and throat: No polyps, septum- normal, no mucosal ulcers Neck: Supple, no lymphadenopathy, no carotid bruit Respiratory: No use of accessory muscles of respiration, bilateral breath sounds heard, crackles in basal lesions, Cardiac: S1-S2 heard, rythm regular, no gallop/murmur Abdomen: non distended, no tenderness, no organomegaly, bowel sounds- heard Extremities: no clubbing, no pedal edema, no deformities, peripheral pulses- 2+, left AV fistula present Skin: warm and dry, no rash, no purpura Neuro: No focal deficit, gross cranial nerve exam- normal Coagulation Studies Laboratory Tests Test 04/07/25 05:37 Prothrombin Time 10.5 SECONDS (9.0-12.0) INR International Normalized Ratio 1.0 INR Activated Partial Thromboplast Time 27 SECONDS (22-32) Coagulation Comments Advance Care Planning Advanced Care plannin - 30 Minutes Assessment Assessment 70-year-old male with past medical history of COPD, hypertension, CKD stage 4 on dialysis presented to the ED in view of low H/H. Nephrology consulted for dialysis for CKD Plan Plan ESKD on HD TTS -undergone HD on Sunday -next HD to be done today, after discharge -renal diet Normocytic anemia -H and H improved to 8.6 after two PRBC transfusion -history of PRBC transfusion in December 2024 for hb of 7 -no recent history of EGD or colonoscopy -iron low, TIBC normal, TSAT low, ferritin lower limit of normal -likely suspect anemia of chronic disease, will benefit from IV iron transfusion, as tsat less than 20% Plan -recommended IV iron, EPO during HD -p.o. iron at home -informed patient to discuss with his PCP regarding EGD and colonoscopy CKD MBD Calcium, phosphorus at goal Continue PhosLo 1334 mg t.i.d. BPH Continue tamsulosin 0.4 mg p.o. HS Patient is getting discharged today. We will sign off. Thank you for involving us in the patient care. Inez Osorio MD IM resident Agree with above. arranged for HD at the dialysis center requesting some further drop in dry weight and do HD for 4 x a week for a couple of weeks to keep him euvolemic. to follow up the Hb in a week and see if he drops further. care plan reviewed with the resident. Brennan Bull MD Date of Service: April 07, 2025 Billing Provider: BRENNAN BULL MD, HARIVARSHA, KRISHNA April 07, 2025 09:54 BRENNAN BULL MD April 07, 2025 19:57
[2025-04-07 10:00] VITALS: BP 95/48; PULSE 76; RESP 18; TEMP 98; O2SAT 93
--- NOTE | 2025-04-07 16:13 | DISCHARGE SUMMARY-Residence ---
Discharge Summary Providers to CC Resident Creating Document: NARCISO ESPANA, RES CC: KANDI GIANG MD ~ Discharge Summary Assessment A 70-year-old male with past medical history of COPD, hypertension, CKD stage 4 on dialysis presented to the ED in view of low H/H. Patient was admitted for the evaluation and management of symptomatic anemia. Admission Diagnosis: Hypotnesion, anemia, possible GI bleed Hospital Course DATE OF ADMISSION: 04/04/25 DATE OF DISCHARGE: 04/07/25 Discharge Diagnosis\Comment: Symptomatic normochromic normocytic anemia ESRD on dialysis Hypovolemia COPD not in acute exacerbation Obstructive sleep apnea HFpEF, not in acute exacerbation HTN BPH Operations\Procedures: Dialysis Consultants: Dr. Amin (ad terminal makeup operator) Complications: None Condition on DC: Stable New Medications: Ferrous Sulfate (Ferrous Sulfate) 325 Mg (65 Mg Iron) Tablet 325 MG PO DAILY for 30 Days, #30 TAB Continued Medications: Amiodarone HCl (Amiodarone HCl) 200 Mg Tablet 1 TAB PO BID, TAB 0 Refills Aspirin (Aspirin) 325 Mg Tablet 1 TAB PO DAILY, TAB Calcium Acetate (Calcium Acetate) 667 Mg Capsule 2 CAP PO TID Carvedilol* (Coreg*) 12.5 Mg Tablet 0.5 TABLET PO BID, TABLET Diazepam (Diazepam) 5 Mg Tablet 5 MG PO DAILY PRN for anxiety for 30 Days, #60 TAB 0 Refills Duloxetine HCl (Duloxetine HCl) 60 Mg Capsule.dr 60 MG PO DAILY for 30 Days, #30 CAP Fluticasone/Umeclidin/Vilanter (Trelegy Ellipta 100-62.5-25) 100-62.5 Blst.w.dev 1 PUFFS INH QAM Folic Acid/Vitamin B Comp W-C (Dialyvite Tablet) Unknown Strength Tablet 1 TAB PO DAILY for 30 Days, #30 TAB 0 Refills Gabapentin (Gabapentin) 600 Mg Tablet 0.5 TAB PO HS for 30 Days, #90 TAB 0 Refills Midodrine Hcl (Midodrine Hcl) 10 Mg Tablet 1 TAB PO DAILY, TAB 0 Refills Modafinil (Modafinil) 200 Mg Tablet 1 TAB PO DAILY PRN for ED Multivitamin (Multi Vitamin Daily) 1 Each Tablet 1 TAB PO DAILY for 30 Days, #30 TAB 0 Refills [place]-3/Dha/Epa/Fish Oil (Fish Oil 1,000 Mg Ec Softgel) 300 Mg-1,000 Mg Capsule. 1 CAP PO Q12H for 30 Days, #60 CAP 0 Refills Omeprazole (Prilosec) 40 Mg Capsule 2 CAP PO BID, CAP Oxycodone HCl/Acetaminophen (Percocet 10-325 mg Tablet) 10 Mg-325 Mg Tablet 1 TAB PO Q8H PRN for pain MDD 6 Tablet(s), TAB Tamsulosin Hcl* (Flomax*) 0.4 Mg Cap.sr.24h 1 CAP PO DAILY for 30 Days, #30 CAP Discharge Summary: A 70-year-old male with past medical history of ESRD on dialysis presented to the ED dialysis session due to low H&H. On further investigations and evaluation patient's hemoglobin was found to be less than seven. Therefore patient was transfuse 1 unit of blood. At the time of admission patient also had low blood pressure readings which required a bolus of fluids of 500 mL. A cautious use was required in view of fluid overload from CKD. Patient's hemoglobin has been probably secondary to chronic kidney disease. Patient's other medical conditions were managed as per home medications. On 04/05/2025 patient underwent hemodialysis in view of edema of his legs. After discussions with Dr. Doe (ad terminal makeup operator), patient was cleared for discharge Patient was hemodynamically stable for discharge. Examination at discharge: General: Morbidly obese male, Alert, awake, oriented, not in acute distress HEENT: PERRLA, no icterus, pallor, lymphadenopathy, carotid bruit Respiratory system: Bilateral vesicular breath sounds heard, bilateral crackles in all lung regions present (improving) CVS: S1-S2 heard, no murmurs/rubs/gallop GI: Soft, nontender, no organomegaly, no guarding/rigidity, bowel sounds present Neuro: No focal neurological deficits present Extremities: 1+ pitting edema present in bilateral feet, No cyanosis clubbing/deformities Musculoskeletal: No deformity Skin: Warm and dry Psych: Normal mood and affect Labs at discharge: WBC: 4.2, H/H: 8.6/26.9, platelet count: 167 Sodium: 137, potassium: 4.1, BUN: 27, creatinine: 5.9 Imaging: Chest x-ray:Left basilar patchy airspace opacity could be atelectasis. Cardiomegaly. Discharge medications can be found above patient was discharged home with home misses with the following recommendations: Follow up with your primary care within two weeks of discharge. Please go to [facility] for your dialysis session today directly from the hospital. We started you on iron supplementation for your anemia. Consult with a ad terminal makeup operator in view of starting erythropoietin supplementation Return to ER in view of fluid overload, shortness of breath, swelling of feet, palpitations, chest pain, any bleed. *Problems/Diagnosis: (1) Anemia Status: Chronic (2) End-stage renal disease on hemodialysis Status: Chronic Total Time Spent on D/C: > 30 Minutes Date of Service: April 07, 2025 Billing Provider: KANDI GIANG MD, SIVA, RES April 07, 2025 16:13
== END 2025-04-07 11:40 | disposition home health service (06) | DRG 314 ==
LOC: ER 14:13 → ED HOLD 16:05 → ORTHO 4S 19:38
PROVIDERS: ADMIT Family Medicine; ATTEND Family Medicine
PROC: 30233N1 Transfusion of Nonautologous Red Blood Cells into Peripheral Vein, Percutaneous Approach (ICD-10-PCS; principal; 2025-04-04)
PROC: 5A1D70Z Performance of Urinary Filtration, Intermittent, Less than 6 Hours Per Day (ICD-10-PCS; 2025-04-05)
DX: I95.9 Hypotension, unspecified (principal); N18.6 End stage renal disease; I13.2 Hypertensive heart and chronic kidney disease with heart failure and with stage 5 chronic kidney disease, or end stage renal disease; I50.32 Chronic diastolic (congestive) heart failure; D64.89 Other specified anemias; F32.A Depression, unspecified; G47.33 Obstructive sleep apnea (adult) (pediatric); K21.9 Gastro-esophageal reflux disease without esophagitis; N40.0 Benign prostatic hyperplasia without lower urinary tract symptoms; J44.9 Chronic obstructive pulmonary disease, unspecified; I48.91 Unspecified atrial fibrillation; E11.22 Type 2 diabetes mellitus with diabetic chronic kidney disease; Z99.2 Dependence on renal dialysis; Z88.8 Allergy status to other drugs, medicaments and biological substances; Z91.030 Bee allergy status; Z91.041 Radiographic dye allergy status; Z79.899 Other long term (current) drug therapy; Z79.82 Long term (current) use of aspirin; Z90.49 Acquired absence of other specified parts of digestive tract; Z99.81 Dependence on supplemental oxygen
CPT/HCPCS: 36415; 36430; 71045; 80048; 80053; 80076; 82728; 83540; 83550; 83735; 84100; 84439; 84443; 84466; 84484; 85007; 85025; 85027; 85610; 85730; 86885; 86900; 86901; 86920; 87081; 87340; 93005; 94640; 94760; 97110; 97161; 97530; 99285; A4615; A6250; A6449; A6590; E1594; G0257; G0378; J2003; J2405; J2470; J7030; J7050; P9016; Q4081

== ENCOUNTER 2025-04-08 16:22 | Inpatient (IN) | payer BC, MEDICARE ==
[~2025-04-08] VITALS: Ht 170.2 cm; Wt 120.0 kg
[~2025-04-08 16:22] MED LIST changes: +FER325T PO
[2025-04-08 16:48] LABS: ABG BASE EXCESS -0.6 mmol/L (-2.0-3.0); ABG HCO3 25.1 mmol/L (21.0-28.0); ABG OXYGEN SATURATION 97.1 % (94.0-98.0); ABG PCO2 (T) 48.4 mmHg (35.0-48.0); ABG PH (T) 7.338 (7.350-7.450); ABG PO2 (T) 112.2 mmHg (83.0-108.0); ALLEN'S TEST POSITIVE; FCOHb 0.8 % (0.5-1.5); FHHb 2.9 % (0.0-5.0); FMetHb 0.3 % (0.0-1.5); MODE MASK - NRB; TOTAL HEMOGLOBIN 8.9 G/dl (13.5-17.5)
--- NOTE | 2025-04-08 17:03 | RADIOLOGY REPORT ---
CHEST RADIOGRAPH Indication: CP Technique: Single frontal view of the chest was obtained Comparison: DI CHEST,SINGLE VIEW on DOS: 04/04/25, DI CHEST,SINGLE VIEW on DOS: 01/17/25, DI CHEST,SING LE VIEW on DOS: 01/03/25, DI CHEST,SINGLE VIEW on DOS: 01/01/25, DI CHEST,SINGLE VIEW on DOS: 12/31/24 FINDINGS: Lines and Tubes: None Lungs: No focal consolidation. Poor inspiratory radiograph Pleura: No effusion. No pneumothorax. Cardiomediastinal contours: Unremarkable Bones: No acute osseous abnormality. IMPRESSION: 1. No acute cardiopulmonary disease.
--- NOTE | 2025-04-08 17:08 | ELECTROCARDIOGRAPH REPORT ---
[facility] Test Date: 2025-04-08 Test Time: 16:30:35 Pat Name: ALFONSO HANDLEY Department: EMERGENCY ROOM Room: Gender: M Director [employer]: SHY : 1955 Requested By: WALDO RAJPUT Order Number: [id number] Reading MD: Measurements Intervals [place] Rate: 84 P: 18 SC: 189 QRS: -22 QRSD: 109 T: 22 QT: 367 QTc: 434 Interpretive Statements Sinus rhythm Borderline left axis deviation Low voltage, precordial leads Nonspecific T abnormalities, anterior leads Please click the below link to view image of tracing.
[2025-04-08 17:09] LABS: BASOPHILS % (AUTO) 0.6 % (0-1); EOSINOPHILS % (AUTO) 1.1 % (0-6); HEMATOCRIT 23.6 % (42.0-52.0); HEMOGLOBIN 7.5 g/dl (14.0-17.9); LYMPHOCYTES # (AUTO) 0.4 X10'3 (1.1-4.8); LYMPHOCYTES % (AUTO) 11.6 % (21-51); MEAN CORPUSCULAR HEMOGLOBIN 29.3 PG (27.0-31.0); MEAN CORPUSCULAR HGB CONC 31.9 g/dL (33.0-36.5); MEAN CORPUSCULAR VOLUME 91.9 FL (78-98); MEAN PLATELET VOLUME 6.3 FL (7.4-10.4); MONOCYTES # (AUTO) 0.5 X10'3 (0-0.9); MONOCYTES % (AUTO) 14.8 % (2-12); NEUTROPHILS # (AUTO) 2.2 X10'3 (1.8-7.7); NEUTROPHILS % (AUTO) 71.9 % (42-75); PLATELET COUNT 131 X10'3 (140-440); RED BLOOD COUNT 2.57 X10'6 (4.70-6.10); RED CELL DISTRIBUTION WIDTH 18.6 % (11.5-14.5); WHITE BLOOD COUNT 3.1 X10'3 (4.5-11.0)
[2025-04-08] MEDS: normal saline 1000ml 1,000 ML IV ONE (17:19)
[2025-04-08 17:32] LABS: ALANINE AMINOTRANSFERASE 11 U/L (12-78); ALBUMIN/GLOBULIN RATIO 0.7 (1.1-1.5); ALKALINE PHOSPHATASE 87 IU/L (46-116); ANION GAP 7 (8-16); ASPARTATE AMINO TRANSFERASE 11 U/L (10-37); BILIRUBIN,TOTAL 0.2 MG/DL (0.1-1.0); BLOOD UREA NITROGEN 25 MG/DL (7-18); BUN/CREATININE RATIO 5.2 (10.0-20.0); CALCIUM 6.9 MG/DL (8.5-10.1); CHLORIDE 104 MMOL/L (99-107); CREATININE 4.84 MG/DL (0.60-1.10); GLUCOSE 87 MG/DL (70-104); POTASSIUM 4.4 MMOL/L (3.5-5.1); PRO BRAIN NATRIURETIC PEPTIDE 5178 PG/ML (0-125); SODIUM 138 MMOL/L (135-145); TOTAL CARBON DIOXIDE 26.8 MMOL/L (24-32); TOTAL PROTEIN 4.9 G/DL (6.4-8.2); eCRCL 13 ML/MIN; eGFR 12 ML/MIN
[2025-04-08] MEDS: CefTRIAXone/D5W-Rocephin 1gm 50 ML IV ONE (17:57)
--- NOTE | 2025-04-08 18:22 | Physician Documentation ---
History of Present Illness ~ General Chief Complaint: ALOC Stated Complaint: ALOC Time Seen by MD: 16:36 Primary Medical Doctor: Cain Seth MD Mode of Arrival: EMS History of Present Illness Initial Comments 70 year old male BIB EMS after he was just discharged from our facility where he was being treated for anemia and received many units of PRBCs. He has known COPD and CHF and uses oxygen at home and he was reportedly found off his home dose of 4L, and altered/somnolent. On arrival he is febrile and his saturations were unclear and he was placed on a nonrebreather. Medication Reconciliation Allergies: Coded Allergies: Iodinated Contrast Media (Verified Allergy, Severe, SOB, DIAPHORETIC, 01/17/25) bee venom protein (honey bee) (Verified Allergy, Unknown, 05/31/24) iodine (Verified Adverse Reaction, Intermediate, SEE COMMENTS, 01/17/25) 1998 post ivp- pt c/o chest and abd pain- to er- no treatment needed- resolved. Scheduled Amiodarone HCl (Amiodarone HCl), 1 TAB PO BID, (Reported) Aspirin (Aspirin), 1 TAB PO DAILY, (Reported) Calcium Acetate (Calcium Acetate), 2 CAP PO TID, (Reported) Carvedilol* (Coreg*), 0.5 TABLET PO BID, (Reported) Duloxetine HCl (Duloxetine HCl), 60 MG PO DAILY, (Reported) Ferrous Sulfate (Ferrous Sulfate), 325 MG PO DAILY Fluticasone/Umeclidin/Vilanter (Trelegy Ellipta 100-62.5-25), 1 PUFFS INH QAM, (Reported) Folic Acid/Vitamin B Comp W-C (Dialyvite Tablet), 1 TAB PO DAILY, (Reported) Gabapentin (Gabapentin), 0.5 TAB PO HS, (Reported) Midodrine Hcl (Midodrine Hcl), 1 TAB PO DAILY, (Reported) Multivitamin (Multi Vitamin Daily), 1 TAB PO DAILY, (Reported) [place]-3/Dha/Epa/Fish Oil (Fish Oil 1,000 Mg Ec Softgel), 1 CAP PO Q12H, (Reported) Omeprazole (Prilosec), 2 CAP PO BID, (Reported) Tamsulosin Hcl* (Flomax*), 1 CAP PO DAILY, (Reported) Scheduled PRN Diazepam (Diazepam), 5 MG PO DAILY PRN for anxiety, (Reported) Modafinil (Modafinil), 1 TAB PO DAILY PRN for ED, (Reported) Oxycodone HCl/Acetaminophen (Percocet 10-325 mg Tablet), 1 TAB PO Q8H PRN for pain, (Reported) Past Medical History Past Medical History: Congestive Heart Failure, Hypertension, COPD, Gastritis, GERD, Acute Kidney Injury, Chronic Kidney Disease, Dialysis, Kidney Stones, UTI, Chronic Back Pain, Bipolar, Depression Past Surgical History: appendectomy, cholecystectomy, orthopedic surgeries Patient History: (DM Type 2) Diabetes mellitus type 2 MOTHER ( ), , Age: 68, Cause: of unknown cause FH: breast cancer MOTHER ( ), , Age: 68, Cause: of unknown cause FH: stroke FATHER, , Age: 69, Cause: of unknown cause Alcohol Use: Occasionally Drug Use: none Lives with: S/O Lives In: Home Review of Systems All Other Systems at this time: Reviewed and Negative Physical Exam Physical Exam Vital Signs: RN Vital Signs have been reviewed: Yes, Temperature: 101.4, Source: Bladder, Heart Rate: 78, Respiratory Rate: 17, BP: 97/70, Pulse Oximetry: 95, Weight: 120.000 Oxygen Flow Rate: 6.0 Physical Exam HEENT: PERRL, moist oral mucosa, EOMI Pulmonary: on nonrebreather, no respiratory distress; distant lung sounds bilaterally 2/2 body habitus Cardiac: RRR, no murmur, rub or gallop MSK: no deformity Skin: w/d/i, no rash Neuro: alert, nonfocal Psych: normal affect Progress Results/Orders Results/Orders Orders - LOLA KIMBROUGH MD Ct Head (04/08/25 19:32) Medications Received in ER Medications (Trade) Dose Ordered Sig/Connie Route PRN Reason Start Time Stop Time Status Last Admin Dose Admin Sodium Chloride 1,000 ml @ 1,000 mls/hr ONCE ONCE IV 04/08/25 17:00 04/08/25 17:59 DC 04/08/25 17:19 1,000 MLS/HR Ceftriaxone Sodium 50 ml @ 100 mls/hr ONCE ONCE IV 04/08/25 17:35 04/08/25 18:04 DC 04/08/25 17:57 100 MLS/HR Vital Signs 04/08/25 04/08/25 04/08/25 04/08/25 16:28 16:57 17:20 17:25 Temp 101.5 101.1 Pulse 83 80 80 Resp 26 18 14 17 B/P (MAP) 67/49 97/54 (68) 90/40 (57) Pulse Ox 97 95 95 O2 Flow Rate 15.0 6.0 6.0 04/08/25 04/08/25 04/08/25 17:30 17:45 18:01 Temp 101.4 101.4 Pulse 80 79 78 Resp 16 16 17 B/P (MAP) 92/36 (54) 99/47 (64) 97/70 (79) Pulse Ox 95 95 95 O2 Flow Rate 6.0 6.0 Laboratory Tests Test 04/08/25 16:44 04/08/25 16:55 04/08/25 17:41 04/08/25 18:33 Blood Gas Specimen Type Arterial Blood Gas Puncture Site Rr O2 Saturation 97.1 Arterial Blood pH (Temp corrected) 7.338 L Arterial Blood pCO2 (Temp correct) 48.4 H Arterial Blood pO2 (Temp corrected) 112.2 H Arterial Blood PO2/FiO2 Ratio 1.06 Arterial Blood HCO3 25.1 Arterial Blood Base Excess -0.6 Arterial Blood Oxyhemoglobin 96.0 Arterial Blood Carboxyhemoglobin 0.8 Arterial Blood Methemoglobin 0.3 Arterial Blood Deoxyhemoglobin 2.9 Robert Test Positive Blood Gas Hemoglobin 8.9 L Blood Gas Temperature 38.0 Blood Gas Modality Mask - nrb FiO2 100.0 White Blood Count 3.1 L Red Blood Count 2.57 L Hemoglobin 7.5 L Hematocrit 23.6 L Mean Corpuscular Volume 91.9 Mean Corpuscular Hemoglobin 29.3 Mean Corpuscular Hemoglobin Concent 31.9 L Red Cell Distribution Width 18.6 H Platelet Count 131 L Mean Platelet Volume 6.3 L Neutrophils (%) (Auto) 71.9 Lymphocytes (%) (Auto) 11.6 L Monocytes (%) (Auto) 14.8 H Eosinophils (%) (Auto) 1.1 Basophils (%) (Auto) 0.6 Neutrophils # (Auto) 2.2 Lymphocytes # (Auto) 0.4 L Monocytes # (Auto) 0.5 Eosinophils # (Auto) 0.0 Basophils # (Auto) 0.0 CBC Comment Sodium Level 138 Potassium Level 4.4 Chloride Level 104 Carbon Dioxide Level 26.8 Anion Gap 7 L Blood Urea Nitrogen 25 H Creatinine 4.84 H Estimated GFR/1.73 m2 12 BUN/Creatinine Ratio 5.2 L Glucose Level 87 Lactic Acid Level 0.9 Calcium Level 6.9 #L Total Bilirubin 0.2 Aspartate Amino Transf (AST/SGOT) 11 Alanine Aminotransferase (ALT/SGPT) 11 L Alkaline Phosphatase 87 Troponin I High Sensitivity 82 *H 124 *H Pro-B-Type Natriuretic Peptide 5178 H Total Protein 4.9 L Albumin 2.0 L Globulin 2.9 Albumin/Globulin Ratio 0.7 L Chemistry Comments Urine Specimen Description Patricia cath Urine Color Yellow Urine Clarity Cloudy Urine pH 7.5 Urine Specific [place] 1.015 Urine Protein 100 H Urine Glucose (UA) Negative Urine Ketones Negative Urine Occult Blood Small Urine Nitrite Negative Urine Bilirubin Negative Urine Urobilinogen 0.2 Urine Leukocyte Esterase Moderate H Urine RBC 3-10 Urine WBC Tntc H Urine Squamous Epithelial Cells Few Urine Bacteria 2+ Urine Culture Indicated Indicated Volume Urine Centrifuged 10 ml Urine Comment Troponin I High Sens Percent Delta 51 Troponin I Hi Sens Absolute Change 42 Test 04/08/25 19:27 Medical Decision Making Findings 70 year old male recently discharged from our facility with complex medical issues including dialysis dependence, CHF, COPD, on home oxygen. He improved on supplemental oxygen and a sepsis workup was started and he was provided with IV antibiotics. His workup thus far has demonstrated anemia, leukopenia, elevated BNP, and he appears to be resting comfortably. He has been borderline hypotensive during his stay but reportedly frequently has low blood pressures. I will sign him out to Dr. Kimbrough for disposition and likely admission. Differential Diagnosis dd x= hypoxic respiratory failure, sepsis, PNA, UTI, medication noncompliance, anemia, GI bleed Departure Time of Disposition: 19:38 Disposition: 09 ADMITTED INPATIENT Admitted to Inpatient Unit: to hospitalist Admission Level of Care: Med/Surg with Tele Impression: Primary Impression: Sepsis Qualified Codes: A41.9 - Sepsis, unspecified organism Additional Impression: Urinary tract infection Qualified Codes: N39.0 - Urinary tract infection, site not specified Condition: Guarded Education Educated: Patient, Family Educated regarding: diagnosis, treatment Additional Comment Transfer of Care: Care of the patient transferred to [place] by Dr. Frederick at 6:30 p.m.. Additional Comment 7:30 p.m.: Case discussed with the hospitalist, Dr. Holguin. She will accept care the patient for admission. She requested a head CT without IV contrast be ordered, which I did for the earlier ALOC which has since resolved. Patient's mental status and neurological status is back to baseline. Patient's altered mental status was thought to be secondary to his hypoxia and sepsis. Patient is found to have a urinary tract infection. Patient has received antibiotics and fluids. Chest x-ray there is no evidence of acute cardiopulmonary process. Although, the lung volumes were very poor/low. 7:43 p.m.: Patient re-evaluated. Patient is feeling better. Patient's blood pressure has improved to 107/56. Signature Scribe Signature: No scribe Attestation: No scribe WALDO RAJPUT MD April 08, 2025 18:22 LOLA KIMBROUGH MD April 08, 2025 19:47
[2025-04-08 18:24] LABS: BILIRUBIN,URINE NEGATIVE (Neg); CLARITY,URINE CLOUDY (Clear); COLOR,URINE YELLOW (Yellow); GLUCOSE, URINE NEGATIVE (Neg); KETONES,URINE NEGATIVE (Neg); LEUKOCYTE ESTERASE ,URINE MODERATE (Neg); NITRITES, URINE NEGATIVE (Neg); OCCULT BLOOD,URINE SMALL (Neg); PH,URINE 7.5 (4.8-8.0); PROTEIN,URINE 100 mg/dl (Neg); UROBILINOGEN,URINE 0.2 E.U/dL (0.2-1.0)
[2025-04-08 18:34] LABS: UA COLLECTION TYPE FOLEY CATH
[2025-04-08 18:38] LABS: BACTERIA,URINE 2+ /HPF (Neg); SQUAMOUS EPITHELIAL CELL,UR FEW /LPF (FEW); WBC,URINE TNTC /HPF (0-4)
[2025-04-08] MEDS ORDERED: modafinil 100mg tablet PO PRN (19:55)
[2025-04-08] MEDS ORDERED: diazepam 5mg tablet PO PRN (19:55)
[2025-04-08] MEDS ORDERED: ondansetron/PF 4mg/2ml inj IV PRN (19:55)
[2025-04-08] MEDS ORDERED: acetaminophen 325mg tablet PO PRN (19:55)
[2025-04-08] MEDS: docusate sod 100mg capsule PO SCH (20:00)
--- NOTE | 2025-04-08 20:07 | HISTORY AND PHYSICAL-Residence ---
History & Physical Providers to CC Resident Creating Document: INEZ OSORIO RES CC: KIANNA MOY MD; LUCIO BULL MD ~ History of Present Illness Primary Medical Doctor: GEORGES Reason for Admit\Complaint: AMS History of Present Illness 70-year-old male with history of ESKD on HD TTS, anemia, recently undergone blood transfusions and the discharged on 04/07 from this hospital. Today he was BIB EMS, after he was found to be in altered mental status by his at home. Patient said he had dialysis yesterday and he took his medications yesterday night. He woke up this morning. Did not take his medications, did not eat breakfast, lasting he remembers was lying in his recliner. He was found to be altered mental status by his and EMS was called. EMS found him to be hypoxic 81% SpO2 on room air, and was put on NRBM at 12 L/min and SpO2 improved to 94. Did Not have any hypoglycemia. His blood pressure usually runs low at his home and he uses midodrine. In the ER, patient mental status improved after he was put on oxygen. A Patricia was inserted and urine grossly pyuric. Patient stated he had Patricia catheter on and off for the past two years. He had some urologic intervention long time ago. He also had history of UTIs before. he denies any dysuria or hematuria or pyuria however he also stated he does not void much. Denies fever, flank pain, nausea, vomitings, abdominal pain In the ER he received IV Rocephin for presumed UTI Allergies: Coded Allergies: Iodinated Contrast Media (Verified Allergy, Severe, SOB, DIAPHORETIC, 01/17/25) bee venom protein (honey bee) (Verified Allergy, Unknown, 05/31/24) iodine (Verified Adverse Reaction, Intermediate, SEE COMMENTS, 01/17/25) 1998 post ivp- pt c/o chest and abd pain- to er- no treatment needed- resolved. Home Medications Home Medications Active Ferrous Sulfate 325 Mg (65 Mg Iron) Tablet 325 Mg PO DAILY 30 Days Reported Aspirin 325 Mg Tablet 1 Tab PO DAILY Prilosec (Omeprazole) 40 Mg Capsule 2 Cap PO BID Midodrine Hcl 10 Mg Tablet 1 Tab PO DAILY Amiodarone HCl 200 Mg Tablet 1 Tab PO BID Gabapentin 600 Mg Tablet 0.5 Tab PO HS 30 Days Flomax* (Tamsulosin HCl) 0.4 Mg Cap.sr.24h 1 Cap PO DAILY 30 Days Coreg* (Carvedilol) 12.5 Mg Tablet 0.5 Tablet PO BID Multi Vitamin Daily (Multivitamin) 1 Each Tablet 1 Tab PO DAILY 30 Days Fish Oil 1,000 Mg Ec Softgel ([place]-3/Dha/Epa/Fish Oil) 300 Mg-1,000 Mg Capsule. 1 Cap PO Q12H 30 Days Dialyvite Tablet (Folic Acid/Vitamin B Comp W-C) Unknown Strength Tablet 1 Tab PO DAILY 30 Days Modafinil 200 Mg Tablet 1 Tab PO DAILY PRN Trelegy Ellipta 100-62.5-25 (Fluticasone/Umeclidin/Vilanter) 100-62.5 Blst.w.dev 1 Puffs INH QAM Calcium Acetate 667 Mg Capsule 2 Cap PO TID Diazepam 5 Mg Tablet 5 Mg PO DAILY PRN 30 Days Percocet 10-325 mg Tablet (Oxycodone HCl/Acetaminophen) 10 Mg-325 Mg Tablet 1 Tab PO Q8H PRN MDD 6 Tablet(s) Duloxetine HCl 60 Mg Capsule. 60 Mg PO DAILY 30 Days Past Medical History Past Medical History copd, chronic respiratory failure on home oxygen at 4 L/min ESRD on HD, TTS reCurrent anemia Hypotension History of UTIs Chronic back pain Heart failure Obesity ?mina History of renal stones Tardive dyskinesia Past Surgical History Surgical History Comment Appendectomy Cholecystectomy Orthopedic surgeries Family History Family History: (DM Type 2) Diabetes mellitus type 2 MOTHER ( ), , Age: 68, Cause: of unknown cause FH: breast cancer MOTHER ( ), , Age: 68, Cause: of unknown cause FH: stroke FATHER, , Age: 69, Cause: of unknown cause Past Social History Social History Comment uses oxygen at home, uses wheelchair for ambulation, [place] [facility] [place] [place] with his Ex-smoker, quit smoking in 2014 4 packs per day for 50 years- 200 pack years Occasional alcohol use Denies illicit drug use Does not smoke marijuana Smoking: Non-Smoker, Cigarettes Alcohol Use: Occasionally Drug Use: None Lives with: S/O Lives In: Home ROS All Other Systems: Reviewed and Negative ROS ROS Constitutional: Positive for fatigue, dizziness HEENT: No blurring of the vision, No sore throat, history of epistaxis in the past Cardiovascular: No chest pain/discomfort, palpitations, syncope. No pedal edema Respiratory: No cough,, hemoptysis, positive for exertional dyspnea Gastrointestinal: No abdominal pain, nausea, vomiting. No diarrhea, constipation, melena. Genitourinary: No frquency, urgency, incontinence, nocturia. No dysuria, hematuria Musculoskeletal: No arthralgia, myalgia Endocrine: No polydipsia, polyuria. No heat or cold intolerance Neurologic: No headache, vertigo. No weakness, numbness or tingling of extremities, positive for altered mental status Psychiatric: No hallucinations/delusions, no anhedonia, no suicidal ideation\ Hematologic: No bleeding or bruises Reviewed in full. All negative except for pertinent positives in HPI Exam Vitals: Vital Signs Date Time Temp Pulse Resp B/P (MAP) Pulse Ox O2 Delivery O2 Flow Rate FiO2 04/08/25 18:01 78 17 97/70 (79) 95 6.0 04/08/25 17:45 101.4 General: General: Elderly male, AAO x4, not in apparent distress Head: Normocephalic with an atraumatic Eyes: Pupils- 3mm, reacting to light, conjunctiva- anicteric Nose and throat: No polyps, septum- normal, no mucosal ulcers Neck: Supple, no lymphadenopathy, no carotid bruit Respiratory: No use of accessory muscles of respiration, Bilateral normal breath sounds, no crackles Cardiac: S1-S2 heard, rythm regular, no gallop/murmur Abdomen: Obese, non distended, no tenderness, no organomegaly, bowel sounds- heard Extremities: no clubbing, no pedal edema, no deformities, peripheral pulses- 2+ Skin: warm and dry, no rash, no purpura Neuro: No focal deficit, gross cranial nerve exam- normal Diagnostic Data Last Recorded Lab Results: 04/08/25 1655 04/08/25 165 Advance Care Planning Advanced Care plannin - 30 Minutes (Code status is discussed with him and he opted for full code) Additional Plan 70-year-old male with ESKD on HD TTS, chronic anemia s/p two PRBC transfusion on 04/06, chronic HFpEF, COPD on home O2, obesity, MINA, hypotension, presented to the ER with chief complaints of altered mental status. With low sats of 81% on room air. Altered mental status -differentials here includes hypoxemic encephalopathy vs toxic encephalopathy (patient is on diazepam and Percocet) vs metabolic encephalopathy secondary to UTI -altered mental status improved with oxygen supplementation. ABG did not show any CO2 retention. TSH normal Plan -will obtain CT brain, ammonia levels -hold home diazepam -aspiration precautions, on delirium precautions Acute on chronic hypoxemic respiratory failure COPD not in acute exacerbation -oxygen sats improved with NRBM currently patient is on nasal cannula at 4 L/min -CXR- showed increased bilateral infiltrate, compared to the x-ray done two days ago Plan -monitor oxygen sats, head elevation of 30 -albuterol nebulization p.r.n. for wheezing Acute on chronic heart failure with preserved ejection fraction -chest x-ray showed pulmonary congestion, increased bilateral infiltrates with proBNP of 5178 -2D echo done in 03/2025 showed ejection fraction of 50-55%, RVSP of 40 -appears mildly volume overload, however as his blood pressures are low he did not receive any diuretic Plan -fluid removal by HD tomorrow -carvedilol on hold in view of soft BPs, restart once blood pressures are improved UTI -UA showed moderate leukocyte esterase, negative nitrite, many WBCs -significant for leukopenia -empirically started on Rocephin -previous urine cultures showed E coli pansensitive Plan -follow up on urine cultures and blood culture -follow up on procalcitonin -continue IV Rocephin 1 g once daily ESKD on HD/TTS -Nephrology is consulted -HD tomorrow Hyperphosphatemia -continue PhosLo Anemia- anemia of chronic disease Leukopenia Thrombocytopenia -hemoglobin stable at 7.5, undergone two PRBC transfusion two days ago -TSAT is low, patient qualifies for IV iron infusion however in view of active UTI, IV iron is held now Plan -monitor CBC -patient will likely needs endoscopy/colonoscopy at some point, during previous discharge he was recommended to get them done on outpatient basis Hypotension -is have history of chronic hypotension, uses midodrine at home -he initially came his blood pressure was 67/49, improved with 500 cc of fluid bolus -current blood pressures are 100/70 with map of 79 Plan -continue midodrine -monitor orthostatic vitals Elevated troponins -troponins x2 82, 124 -EKG showed left axis deviation, sinus rhythm, low voltage complexes in the precordial leads -the troponins likely secondary to demand ischemia Plan -continue aspirin Chronic pain -continue gabapentin, Percocet Depression -continue duloxetine BPH -continue tamsulosin Unsure why patient is on amiodarone, modafinil Code Status: Full code Line/tube: PIV DVT prophylaxis: Heparin Nutrition: Renal diet PT: yes Prognosis: Guarded Disposition: Continue care in ortho floor Inez Osorio MD PGY-2 resident Date of Service: April 08, 2025 Billing Provider: KIANNA MOY MD Common Visit Codes: 79020-OUUIEMG INP/OBS CARE (HIGH) Assessment/Plan Assessment Lanny evaluated the patient with the help of residents. Discussed the case with them. Reviewed notes by the resident. Agree with her assessments and plans. I also reviewed the patient's records. This included labs, radiology, notes from other providers. No additional points at this time. INEZ OSORIO, RES April 08, 2025 20:07 KIANNA MOY MD April 09, 2025 04:11
[2025-04-08] MEDS ORDERED: albuterol 2.5 MG/3 ML nebule NEB PRN (20:35)
--- NOTE | 2025-04-08 21:32 | RADIOLOGY REPORT ---
Clinical History aloc Comparison ct head on 11/10/2024, 232 images. Technique: All CT scans at this medical facility are performed using dose modulation techniques as appropriate t o a performed exam including the following: Automated exposure control was utilized; adjustment of th e mA and/or kV according to patient size; and use of iterative reconstruction technique. All CT studies are reported to the Dose Index Registry of the [employer]. Without Contrast Radiation Dose: CTDI (mGy): 60.5; DLP (mGy-cm): 1353.11 ALFONSO HANDLEY, [id number] Findings: Mild periventricular white matter low attenuation foci concerning for chronic microangiopathy. Mild right occipital encephalomalacia No acute focal parenchymal lesion.No mass-effect. No shift of midline structures. The ventricular system and extracerebral CSF spaces are unremarkable for patient's age. No acute orbital abnormality. The imaged part of the paranasal sinuses is unremarkable. The imaged part of the mastoid air cells is unremarkable. The calvarium is unremarkable. The soft tissues are unremarkable. Impression: No evidence of acute intracranial abnormality. This report was electronically signed by Ricardo Neumann MD on 04/08/2025 9:28:50 PM.
[2025-04-08] MEDS: calcium acetate 667mg (PhosLO) capsule PO SCH (22:12)
[2025-04-08] MEDS: acetaminophen 325mg tablet PO STA (22:13)
[2025-04-08] MEDS: amiodarone 200mg tablet PO SCH (22:14)
[2025-04-08] MEDS: gabapentin 300mg capsule PO SCH (22:14)
[2025-04-08] MEDS: OMEGA-3/DHA/EPA/FISH OIL 1 EACH CAPSULE.DR PO SCH (22:14)
[2025-04-08] MEDS: heparin, porcine 5000 units/ml vial SQ SCH (22:14)
[2025-04-08 23:40] VITALS: BP 110/38; PULSE 66; RESP 18; TEMP 99.4; O2SAT 95
[2025-04-09] VITALS (14 sets, daily range): BP systolic 82–131; BP diastolic 40–65; PULSE 56–91; RESP 14–20; TEMP 97.8–98.9; O2SAT 93–97
[2025-04-09] MEDS: oxyCODONE/APAP 10/325mg tablet PO PRN (01:21)
[2025-04-09 04:52] LABS: BASOPHILS % (AUTO) 0.8 % (0-1); EOSINOPHILS % (AUTO) 1.3 % (0-6); HEMATOCRIT 26.6 % (42.0-52.0); HEMOGLOBIN 8.4 g/dl (14.0-17.9); LYMPHOCYTES # (AUTO) 0.9 X10'3 (1.1-4.8); LYMPHOCYTES % (AUTO) 27.5 % (21-51); MEAN CORPUSCULAR HEMOGLOBIN 29.2 PG (27.0-31.0); MEAN CORPUSCULAR HGB CONC 31.7 g/dL (33.0-36.5); MEAN CORPUSCULAR VOLUME 92.3 FL (78-98); MEAN PLATELET VOLUME 6.4 FL (7.4-10.4); MONOCYTES # (AUTO) 0.6 X10'3 (0-0.9); MONOCYTES % (AUTO) 16.7 % (2-12); NEUTROPHILS # (AUTO) 1.8 X10'3 (1.8-7.7); NEUTROPHILS % (AUTO) 53.7 % (42-75); PLATELET COUNT 140 X10'3 (140-440); RED BLOOD COUNT 2.88 X10'6 (4.70-6.10); RED CELL DISTRIBUTION WIDTH 18.4 % (11.5-14.5); WHITE BLOOD COUNT 3.4 X10'3 (4.5-11.0)
[2025-04-09 05:13] LABS: ALANINE AMINOTRANSFERASE 14 U/L (12-78); ALBUMIN 2.4 G/DL (3.4-5.0); ALBUMIN/GLOBULIN RATIO 0.7 (1.1-1.5); ALKALINE PHOSPHATASE 102 IU/L (46-116); ANION GAP 8 (8-16); ASPARTATE AMINO TRANSFERASE 17 U/L (10-37); BILIRUBIN,TOTAL 0.3 MG/DL (0.1-1.0); BLOOD UREA NITROGEN 34 MG/DL (7-18); BUN/CREATININE RATIO 5.1 (10.0-20.0); CALCIUM 8.1 MG/DL (8.5-10.1); CHLORIDE 100 MMOL/L (99-107); CREATININE 6.65 MG/DL (0.60-1.10); GLUCOSE 87 MG/DL (70-104); MAGNESIUM 2.2 MG/DL (1.5-2.4); PHOSPHORUS 4.7 MG/DL (2.3-4.5); POTASSIUM 4.7 MMOL/L (3.5-5.1); SODIUM 137 MMOL/L (135-145); TOTAL PROTEIN 5.9 G/DL (6.4-8.2); eCRCL 9 ML/MIN; eGFR 8 ML/MIN
[2025-04-09 06:19] LABS: ANISOCYTOSIS 2+; PLATELET ESTIMATE NORMAL; TOTAL CELLS COUNTED 100
[2025-04-09] MEDS ORDERED: albumin (human) 25% 100ml IV 100 ML IV PRN (06:35)
--- NOTE | 2025-04-09 06:42 | CONSULTATION REPORT ---
Consult Providers to CC ~ History of Present Illness Primary Medical Doctor: Inez Holguin MD Reason for Admit\Complaint: Recurrent Pyelonephritis, with previous history of ESBL infections History of Present Illness 70/M who just left after being treated for severe anemia with no obvious gi bleeds that were found out, comesback with altered mental status and again, nathen Urine looks pretty active. cultures are pending. He will NOT respond to Rocephin, as he has had multiple ESBL UTIs previously. He is due for his dialysis today. Allergies: Coded Allergies: Iodinated Contrast Media (Verified Allergy, Severe, SOB, DIAPHORETIC, 01/17/25) bee venom protein (honey bee) (Verified Allergy, Unknown, 05/31/24) iodine (Verified Adverse Reaction, Intermediate, SEE COMMENTS, 01/17/25) 1998 post ivp- pt c/o chest and abd pain- to er- no treatment needed- resolved. Home Medications Home Medications Active Ferrous Sulfate 325 Mg (65 Mg Iron) Tablet 325 Mg PO DAILY 30 Days Reported Aspirin 325 Mg Tablet 1 Tab PO DAILY Prilosec (Omeprazole) 40 Mg Capsule 2 Cap PO BID Midodrine Hcl 10 Mg Tablet 1 Tab PO DAILY Amiodarone HCl 200 Mg Tablet 1 Tab PO BID Gabapentin 600 Mg Tablet 0.5 Tab PO HS 30 Days Flomax* (Tamsulosin HCl) 0.4 Mg Cap.sr.24h 1 Cap PO DAILY 30 Days Coreg* (Carvedilol) 12.5 Mg Tablet 0.5 Tablet PO BID Multi Vitamin Daily (Multivitamin) 1 Each Tablet 1 Tab PO DAILY 30 Days Fish Oil 1,000 Mg Ec Softgel ([place]-3/Dha/Epa/Fish Oil) 300 Mg-1,000 Mg Capsule.dr 1 Cap PO Q12H 30 Days Dialyvite Tablet (Folic Acid/Vitamin B Comp W-C) Unknown Strength Tablet 1 Tab PO DAILY 30 Days Modafinil 200 Mg Tablet 1 Tab PO DAILY PRN Trelegy Ellipta 100-62.5-25 (Fluticasone/Umeclidin/Vilanter) 100-62.5 Blst.w.dev 1 Puffs INH QAM Calcium Acetate 667 Mg Capsule 2 Cap PO TID Diazepam 5 Mg Tablet 5 Mg PO DAILY PRN 30 Days Percocet 10-325 mg Tablet (Oxycodone HCl/Acetaminophen) 10 Mg-325 Mg Tablet 1 Tab PO Q8H PRN MDD 6 Tablet(s) Duloxetine HCl 60 Mg Capsule.dr 60 Mg PO DAILY 30 Days Past Medical History Past Medical History ESRD recurrent UTIs previous history of indwelling herrera in the past obesity Past Surgical History Surgical History Comment AV fistula left upper arm Family History Family History: (DM Type 2) Diabetes mellitus type 2 MOTHER ( ), , Age: 68, Cause: of unknown cause FH: breast cancer MOTHER ( ), , Age: 68, Cause: of unknown cause FH: stroke FATHER, , Age: 69, Cause: of unknown cause Past Social History Social History Comment non smoker, non alcoholic, no drug abuse ROS ROS change in mental status Exam Vitals: Vital Signs Date Time Temp Pulse Resp B/P (MAP) Pulse Ox O2 Delivery O2 Flow Rate FiO2 04/09/25 02:21 17 04/08/25 23:55 Nasal Cannula 6.0 04/08/25 23:40 99.4 66 110/38 (62) 95 General: Vital Signs: As above General: Normal body habitus, no acute distress. Skin: No rashes, lumps, ulcers, blisters, purpura or petechiae HEENT: Anicteric sclera, ALEXANDER Neck: Supple and nontender without enlargement of the thyroid, or lymphadenopathy. Chest: Normal size and shape, no tenderness, CTA bilaterally Heart: Regular. No jugular venous distention, S1 and S2 heard , no gallop Abdomen: Soft and non tender no organomegaly,BS+ Extremities: ++pedal edema AVF bruits left upper extremity Neuro: Nonfocal. Diagnostic Data Last Recorded Lab Results: 04/09/25 0431 04/09/25 0431 Problems: (1) UTI (urinary tract infection) Status: Acute Assessment & Plan: high suspicion for recurrent ESBL UTI. will give meropenem in anticipation at this point, and stop the rocephin. Await the culture report. (2) End-stage renal disease on hemodialysis Status: Chronic Assessment & Plan: HD in progress now. tolerating ok so far. aim for 3-4 liters off as tolerated. more awake now. (3) Anemia Status: Acute Assessment & Plan: epogen with dialysis. LUCIO BULL MD April 09, 2025 06:42
[2025-04-09] MEDS ORDERED: non-formulary drug (Duloxetine HCl 60 MG) PO SCH (08:00)
[2025-04-09] MEDS ORDERED: CefTRIAXone/D5W-Rocephin 1gm 50 ML IV SCH (08:00)
[2025-04-09] MEDS: midodrine 5mg tablet PO SCH (08:52)
[2025-04-09] MEDS: duloxetine 30mg CAPSULE.DR PO SCH (08:53)
[2025-04-09] MEDS: multivitamins, therapeutics tablet PO SCH (08:53)
[2025-04-09] MEDS: tamsulosin 0.4mg capsule PO SCH (08:53)
[2025-04-09] MEDS: aspirin 325mg tablet PO SCH (08:54)
[2025-04-09] MEDS: MEROPENEM 500MG/50ML-NS IVPB 50 ML IV SCH (09:04)
[2025-04-09] MEDS: LIDOcaine 1% (10mg/ml) 2ml vial SQ ONE (10:14)
[2025-04-09] MEDS: heparin 1,000 units/ml 10ml inj HE ONE ×2 (10:48→10:49)
[2025-04-09] MEDS: EPOETIN ALFA-EPBX 20,000 UNIT/ML 1 ML MDV IV ONE (10:48)
--- NOTE | 2025-04-09 11:11 | PROGRESS NOTE ---
Progress Note Dictate Providers to CC ~ Subjective Subjective: He has not been seen by me for quite some time despite the fact that he has still needed recurrent hospitalization. He is back here again with altered mental status possibly due to urinary tract infection. He states that he is already feeling better. It does not appear that he has demonstrated a positive culture for ESBL Klebsiella since last May. He did have a culture with fully susceptible E coli in December. He is currently receiving dialysis. He also has a history of C. difficile infection, but I am not aware of any positive testing over the past year. Objective Objective: GENERAL: He is a pleasant elderly male lying in bed, looking stable. Left upper extremity AV fistula LUNGS: Clear to auscultation bilaterally. HEART: Regular rate and rhythm. ABDOMEN: Obese, soft and nontender. No significant edema Lab Results: 04/09/25 0431 04/09/25 0431 Problem\Assessment\Plan Additional Plan 1. Recurrent urinary tract infection. h/o ESBL Klebsiella but none since May 2024. h/o urinary incontinence and nephrolithiasis. 2. End-stage renal disease, on hemodialysis 3. h/o C. difficile infection DC meropenem Start ceftazidime 1 g daily Follow up culture Plan to finish out one week of therapy with ceftazidime after dialysis if organism on culture is susceptible Hopefully he will have a short hospitalization KAR DIEGO MD April 09, 2025 11:11
[2025-04-09] MEDS: heparin 1,000 units/ml 10ml inj IV ONE (12:38)
[2025-04-09] MEDS: heparin 1,000unit/ml 10ml vial 10 ML IV ONE (12:44)
--- NOTE | 2025-04-09 18:34 | PROGRESS NOTE ---
Daily Progress Note Providers to CC ~ Antibiotic Timeout Antibiotic Ordered?: Yes Subjective Patient denies hematochezia or abdominal pain; back to normal mental status Objective Vital Signs Date Time Temp Pulse Resp B/P (MAP) Pulse Ox O2 Delivery O2 Flow Rate FiO2 04/09/25 15:00 78 107/51 (69) 82 87/55 (66) 91 121/51 (74) 04/09/25 13:30 98.5 18 96 Nasal Cannula 4.0 Result Diagram: 04/09/2543004/09/25430 In bed in nonacute distress HEENT normal oral mucosa no JVD Lungs with decreased bilateral entry no crackles Heart normal rate and rhythm S1-S2 Abdomen is soft obese nontender bowel sounds present Extremities trace edema Awake and alert motor and sensory intact Problem\Assessment\Plan Patient presented with changes in mental status likely acute metabolic encephalopathy his possibly related to UTI; resolved History of recurrent UTIs; seen by ID; on ceftazidime History of end-stage renal disease on hemodialysis followed by Nephrology Morbid obesity with a BMI of 41 Anemia we will monitor Thrombocytopenia monitor High blood pressure and Coreg BPH on Flomax Peripheral neuropathy on gabapentin History of chronic pain with continuous narcotic habituation on Percocet Paroxysmal atrial fibrillation on amiodarone Sepsis Screening Skin Color: Normal Date of Service: April 09, 2025 Billing Provider: RENUKA PAL MD Common Visit Codes: [id number] INP/OBS CARE(HIGH) RENUKA PAL MD April 09, 2025 18:34
[2025-04-09] MEDS: gabapentin 100mg capsule PO SCH (21:34)
[2025-04-10 05:20] LABS: BASOPHILS % (AUTO) 0.7 % (0-1); EOSINOPHILS # (AUTO) 0.1 X10'3 (0-0.9); EOSINOPHILS % (AUTO) 2.4 % (0-6); HEMATOCRIT 25.8 % (42.0-52.0); HEMOGLOBIN 8.3 g/dl (14.0-17.9); LYMPHOCYTES # (AUTO) 0.7 X10'3 (1.1-4.8); LYMPHOCYTES % (AUTO) 27.6 % (21-51); MEAN CORPUSCULAR HEMOGLOBIN 29.3 PG (27.0-31.0); MEAN CORPUSCULAR HGB CONC 32.1 g/dL (33.0-36.5); MEAN CORPUSCULAR VOLUME 91.3 FL (78-98); MEAN PLATELET VOLUME 6.5 FL (7.4-10.4); MONOCYTES # (AUTO) 0.5 X10'3 (0-0.9); MONOCYTES % (AUTO) 21.8 % (2-12); NEUTROPHILS # (AUTO) 1.2 X10'3 (1.8-7.7); NEUTROPHILS % (AUTO) 47.5 % (42-75); PLATELET COUNT 139 X10'3 (140-440); RED BLOOD COUNT 2.82 X10'6 (4.70-6.10); RED CELL DISTRIBUTION WIDTH 18.4 % (11.5-14.5); WHITE BLOOD COUNT 2.5 X10'3 (4.5-11.0)
[2025-04-10 05:45] LABS: ALANINE AMINOTRANSFERASE 17 U/L (12-78); ALBUMIN 2.4 G/DL (3.4-5.0); ALBUMIN/GLOBULIN RATIO 0.7 (1.1-1.5); ALKALINE PHOSPHATASE 101 IU/L (46-116); ANION GAP 8 (8-16); ASPARTATE AMINO TRANSFERASE 19 U/L (10-37); BILIRUBIN,TOTAL 0.3 MG/DL (0.1-1.0); BLOOD UREA NITROGEN 23 MG/DL (7-18); BUN/CREATININE RATIO 4.5 (10.0-20.0); CALCIUM 8.1 MG/DL (8.5-10.1); CHLORIDE 101 MMOL/L (99-107); CREATININE 5.08 MG/DL (0.60-1.10); GLUCOSE 82 MG/DL (70-104); MAGNESIUM 1.9 MG/DL (1.5-2.4); PHOSPHORUS 3.8 MG/DL (2.3-4.5); POTASSIUM 4.6 MMOL/L (3.5-5.1); SODIUM 138 MMOL/L (135-145); TOTAL CARBON DIOXIDE 29.4 MMOL/L (24-32); TOTAL PROTEIN 5.7 G/DL (6.4-8.2); eCRCL 12 ML/MIN; eGFR 11 ML/MIN
[2025-04-10 06:00] VITALS: BP 102/60; PULSE 72; RESP 15; TEMP 98.7; O2SAT 95
[2025-04-10 06:01] LABS: TOTAL CELLS COUNTED 100
[2025-04-10 06:02] LABS: ANISOCYTOSIS 2+; ELLIPTOCYTES 1+; PLATELET ESTIMATE DECREASED; STOMATOCYTES FEW; TEAR DROP CELLS FEW
[2025-04-10 08:00] VITALS: RESP 16; O2SAT 96
--- NOTE | 2025-04-10 09:00 | PROGRESS NOTE ---
Progress Note Dictate Providers to CC ~ Central Line/PICC still needed: No Patricia Indications Met/Not Met: F/C Indications Not Met Antibiotic Ordered?: Yes Subjective Subjective has UTI. previous histoyr of ESBL. has advised to change meropenem to Ceftazidime. will arrange for that at the dialysis center. (called the orders). He looks better and is more oriented. he is getting discharged today per and will go back to his dialysis tomorrow. Objective Vitals Vital Signs Date Time Temp Pulse Resp B/P (MAP) Pulse Ox O2 Delivery O2 Flow Rate FiO2 04/10/25 09:23 16 04/10/25 06:00 98.7 72 102/60 (74) 95 Room Air 04/09/25 22:00 2.0 Lab Results: 04/10/25 0444 04/10/25 0444 Objective Vital Signs: As above General: Obese body habitus, no acute distress. Skin: No rashes, lumps, ulcers, blisters, purpura or petechiae HEENT: Anicteric sclera, ALEXANDER Neck: Supple and nontender without enlargement of the thyroid, or lymphadenopathy. Chest: Normal size and shape, no tenderness, CTA bilaterally Heart: Regular. No jugular venous distention, S1 and S2 heard , no gallop Abdomen: Soft and non tender no organomegaly,BS+ Extremities:+ pedal edema Neuro: Nonfocal. Advance Care Planning Advanced Care plannin - 30 Minutes Problem\Assessment\Plan Problems/Diagnosis: (1) UTI (urinary tract infection) Assessment & Plan: high suspicion for recurrent ESBL UTI. now on fortaz. has advised the switch. will arrange for this as outpatient. so far cultures negative. (2) End-stage renal disease on hemodialysis Assessment & Plan: HD done yesterday. (3) Anemia Assessment & Plan: epogen with dialysis. Sepsis Screening Skin Color: Normal LUCIO BULL MD April 10, 2025 09:00
[2025-04-10 09:23] VITALS: RESP 16
[2025-04-10] MEDS: cefTAZidime 1 GM/NS 100ML IVPB 100 ML IV SCH (10:03)
--- NOTE | 2025-04-11 08:27 | DISCHARGE SUMMARY ---
Discharge Summary Providers to CC ~ Discharge Summary Admission Diagnosis: UTI, AMS Hospital Course DATE OF ADMISSION: April 08, 2025 DATE OF DISCHARGE: April 10, 2025 Discharge Diagnosis\Comment: Acute encephalopathy possibly related to UTI UTI present on admission patient with history of recurrent UTIs with MDRO E coli History of end-stage renal disease on hemodialysis Morbid obesity with a BMI of 41 Anemia Thrombo cytopenia High blood pressure bPH History of chronic pain with continued narcotic habituation Paroxysmal atrial fibrillation Operations\Procedures: None Consultants: Dr. Gloria nephrology Dr. Pantoja ID Complications: None Condition on DC: Stable Discharge Summary: This is a 70 years old male who was brought in by his partner because of changes in mental status; patient has been admitted numerous times at our facility with similar symptoms that proved to be related to recurrent UTIs; he had a positive UA at this time and he was started on antibiotics with ceftazidime per Infectious diseases; patient was followed by Nephrology during the stay here and received hemodialysis; his mental status improved and patient felt back to his baseline; no complications during his stay; per discussion with Infectious diseases and Nephrology patient is discharged home to continue ceftazidime with hemodialysis for another week; patient in stable condition was discharged home to resume home care Patient to resume his home meds which include amiodarone 200 mg b.i.d. aspirin 325 mg daily calcium acetate 667 mg two caps p.o. t.i.d. Coreg 6.25 mg p.o. b.i.d. Valium 5 mg p.o. daily p.r.n. anxiety Cymbalta 60 mg p.o. daily iron sulfate 325 mg p.o. daily Trelegy Ellipta 100/60 2.5/251 puff inhaler daily folic acid gabapentin 300 mg q.h.s. midodrine 10 mg daily modafinil 200 mg p.o. daily Louisa three fatty acids multivitamin omeprazole 20 mg p.o. b.i.d. Percocet 850202 tablet p.o. q.8 hours p.r.n. pain and Flomax 0.4 mg p.o. daily Blood work on day of discharge white count 2.5 H&H 8.3/25 with 139 platelets; sodium 138 potassium 4.6 CO2 29 BUN 23 and creatinine five In the physical examination temperature 98.7 heart rate 72 breathing 15 blood pressure 1 0-6096% on 2 L HEENT normal oral mucosa no JVD lungs with decreased bilateral entry no crackles no wheezing heart normal rate and rhythm S1-S2 no murmurs abdomen is soft obese nontender bowel sounds present extremities trace edema plus two pulses he is awake and alert Patient to follow up with his primary care physician within a week *Problems/Diagnosis: (1) UTI (urinary tract infection) Status: Acute (2) End-stage renal disease on hemodialysis Status: Chronic (3) Anemia Status: Acute Total Time Spent on D/C: > 30 Minutes Date of Service: April 10, 2025 Billing Provider: RENUKA PAL MD Common Visit Codes: 40660-QPA/OBS DISCH DAY >30min RENUKA PAL MD April 11, 2025 08:25
== END 2025-04-10 12:30 | disposition home health service (06) | DRG 871 ==
LOC: ER 16:23 → ED HOLD 19:55 → SUR 3N 23:30
PROVIDERS: ADMIT Internal Medicine Critical Care Medicine; ATTEND Internal Medicine
PROC: 5A1D70Z Performance of Urinary Filtration, Intermittent, Less than 6 Hours Per Day (ICD-10-PCS; principal; 2025-04-09)
DX: A41.9 Sepsis, unspecified organism (principal); J96.21 Acute and chronic respiratory failure with hypoxia; N18.6 End stage renal disease; N12 Tubulo-interstitial nephritis, not specified as acute or chronic; I13.2 Hypertensive heart and chronic kidney disease with heart failure and with stage 5 chronic kidney disease, or end stage renal disease; G93.40 Encephalopathy, unspecified; Z68.41 Body mass index [BMI] 40.0-44.9, adult; J44.9 Chronic obstructive pulmonary disease, unspecified; K21.9 Gastro-esophageal reflux disease without esophagitis; F31.9 Bipolar disorder, unspecified; I50.9 Heart failure, unspecified; E11.22 Type 2 diabetes mellitus with diabetic chronic kidney disease; D64.9 Anemia, unspecified; E66.01 Morbid (severe) obesity due to excess calories; I48.0 Paroxysmal atrial fibrillation; N40.0 Benign prostatic hyperplasia without lower urinary tract symptoms; E83.39 Other disorders of phosphorus metabolism; Z88.8 Allergy status to other drugs, medicaments and biological substances; Z91.030 Bee allergy status; Z91.041 Radiographic dye allergy status; Z79.82 Long term (current) use of aspirin; Z79.899 Other long term (current) drug therapy; Z90.49 Acquired absence of other specified parts of digestive tract; Z99.2 Dependence on renal dialysis
CPT/HCPCS: 36415; 36600; 70450; 71045; 80053; 81001; 82140; 82803; 83605; 83735; 83880; 84100; 84145; 84484; 85007; 85018; 85025; 87040; 87081; 87088; 93005; 96365; 99285; A4615; A6212; A6449; C1758; E1594; G0257; G0378; J0696; J0713; J1644; J2003; J2185; J7030; Q4081

== ENCOUNTER 2025-04-13 19:05 | Inpatient (IN) | payer BC, MEDICARE ==
[~2025-04-13] VITALS: Ht 172.7 cm; Wt 124.5 kg
--- NOTE | 2025-04-13 19:16 | ELECTROCARDIOGRAPH REPORT ---
[facility] Test Date: 2025-04-13 Test Time: 19:14:17 Pat Name: ALFONSO HANDLEY Department: EMERGENCY ROOM Room: [place] [address] Gender: M Title One Reading Teacher: VIOLETA : 1955 Requested By: VALENTE RAMÍREZ Order Number: [id number] Reading MD: Dr. Travis Contreras Measurements Intervals [place] Rate: 62 P: 27 AK: 62 QRS: 16 QRSD: 142 T: 33 QT: 446 QTc: 453 Interpretive Statements Atrial-paced complexes Right atrial enlargement Nonspecific intraventricular conduction delay Electronically Signed On 04-15-2025 21:44:[address] Travis Contreras Please click the below link to view image of tracing.
[2025-04-13 19:27] LABS: BASOPHILS % (AUTO) 0.3 % (0-1); EOSINOPHILS % (AUTO) 0.9 % (0-6); HEMATOCRIT 22.9 % (42.0-52.0); LYMPHOCYTES # (AUTO) 0.4 X10'3 (1.1-4.8); LYMPHOCYTES % (AUTO) 9.9 % (21-51); MEAN CORPUSCULAR HEMOGLOBIN 28.1 PG (27.0-31.0); MEAN CORPUSCULAR HGB CONC 30.7 g/dL (33.0-36.5); MEAN CORPUSCULAR VOLUME 91.4 FL (78-98); MEAN PLATELET VOLUME 6.8 FL (7.4-10.4); MONOCYTES # (AUTO) 0.3 X10'3 (0-0.9); MONOCYTES % (AUTO) 7.1 % (2-12); NEUTROPHILS # (AUTO) 2.9 X10'3 (1.8-7.7); NEUTROPHILS % (AUTO) 81.8 % (42-75); PLATELET COUNT 107 X10'3 (140-440); RED BLOOD COUNT 2.51 X10'6 (4.70-6.10); RED CELL DISTRIBUTION WIDTH 18.1 % (11.5-14.5); WHITE BLOOD COUNT 3.6 X10'3 (4.5-11.0)
--- NOTE | 2025-04-13 19:41 | RADIOLOGY REPORT ---
CHEST RADIOGRAPH Indication: CP Technique: Single frontal view of the chest was obtained Comparison: DI CHEST,SINGLE VIEW on DOS: 04/08/25, DI CHEST,SINGLE VIEW on DOS: 04/04/25, DI CHEST,SING LE VIEW on DOS: 01/17/25, DI CHEST,SINGLE VIEW on DOS: 01/03/25, DI CHEST,SINGLE VIEW on DOS: 01/01/25 FINDINGS: Lines and Tubes: None Lungs: No focal consolidation. Pleura: No effusion. No pneumothorax. Cardiomediastinal contours: Cardiac silhouette is within the limits of normal. There is uncoiling ath erosclerotic change thoracic aorta. Bones: No acute osseous abnormality. IMPRESSION: 1. No acute cardiopulmonary disease.
[2025-04-13 19:42] LABS: ALANINE AMINOTRANSFERASE 12 U/L (12-78); ALBUMIN/GLOBULIN RATIO 0.7 (1.1-1.5); ALKALINE PHOSPHATASE 102 IU/L (46-116); ANION GAP 10 (8-16); ASPARTATE AMINO TRANSFERASE 12 U/L (10-37); BILIRUBIN,TOTAL 0.4 MG/DL (0.1-1.0); BLOOD UREA NITROGEN 51 MG/DL (7-18); CALCIUM 6.6 MG/DL (8.5-10.1); CHLORIDE 102 MMOL/L (99-107); CREATININE 8.44 MG/DL (0.60-1.10); GLUCOSE 103 MG/DL (70-104); POTASSIUM 5.3 MMOL/L (3.5-5.1); SODIUM 134 MMOL/L (135-145); TOTAL CARBON DIOXIDE 21.9 MMOL/L (24-32); TOTAL PROTEIN 4.8 G/DL (6.4-8.2); eCRCL 8 ML/MIN; eGFR 6 ML/MIN
[2025-04-13 19:49] LABS: PRO BRAIN NATRIURETIC PEPTIDE 15751 PG/ML (0-125)
--- NOTE | 2025-04-13 22:33 | Physician Documentation ---
History of Present Illness ~ Chief Complaint: See Chief Complaint Stated Complaint: ALOC Time Seen by MD: 22:28 Primary Medical Doctor: Inez Holguin MD HPI Patient presents to the emergency room with altered mental status. Unknown last time normal. Patient has history of end-stage renal disease and missed his last dialysis appointment in his scheduled for tomorrow. He was admitted here recently. Patient does not helpful with history or review of systems therefore history is limited secondary to patient's clinical condition Medication Reconciliation Allergies: Coded Allergies: Iodinated Contrast Media (Verified Allergy, Severe, SOB, DIAPHORETIC, 01/17/25) bee venom protein (honey bee) (Verified Allergy, Unknown, 05/31/24) iodine (Verified Adverse Reaction, Intermediate, SEE COMMENTS, 01/17/25) 1999 post ivp- pt c/o chest and abd pain- to er- no treatment needed- resolved. Scheduled Amiodarone HCl (Amiodarone HCl), 1 TAB PO BID, (Reported) Aspirin (Aspirin), 1 TAB PO DAILY, (Reported) Calcium Acetate (Calcium Acetate), 2 CAP PO TID, (Reported) Carvedilol* (Coreg*), 0.5 TABLET PO BID, (Reported) Duloxetine HCl (Duloxetine HCl), 60 MG PO DAILY, (Reported) Ferrous Sulfate (Ferrous Sulfate), 325 MG PO DAILY Fluticasone/Umeclidin/Vilanter (Trelegy Ellipta 100-62.5-25), 1 PUFFS INH QAM, (Reported) Folic Acid/Vitamin B Comp W-C (Dialyvite Tablet), 1 TAB PO DAILY, (Reported) Gabapentin (Gabapentin), 0.5 TAB PO HS, (Reported) Midodrine Hcl (Midodrine Hcl), 1 TAB PO DAILY, (Reported) Multivitamin (Multi Vitamin Daily), 1 TAB PO DAILY, (Reported) Hanson-3/Dha/Epa/Fish Oil (Fish Oil 1,000 Mg Ec Softgel), 1 CAP PO Q12H, (Reported) Omeprazole (Prilosec), 2 CAP PO BID, (Reported) Tamsulosin Hcl* (Flomax*), 1 CAP PO DAILY, (Reported) Scheduled PRN Diazepam (Diazepam), 5 MG PO DAILY PRN for anxiety, (Reported) Modafinil (Modafinil), 1 TAB PO DAILY PRN for ED, (Reported) Oxycodone HCl/Acetaminophen (Percocet 10-325 mg Tablet), 1 TAB PO Q8H PRN for pain, (Reported) Past Medical History Past Medical History: Congestive Heart Failure, Hypertension, COPD, Gastritis, GERD, Acute Kidney Injury, Chronic Kidney Disease, Dialysis, Kidney Stones, UTI, Chronic Back Pain, Bipolar, Depression Past Surgical History: appendectomy, cholecystectomy, orthopedic surgeries Patient History: (DM Type 2) Diabetes mellitus type 2 MOTHER ( ), , Age: 68, Cause: of unknown cause FH: breast cancer MOTHER ( ), , Age: 68, Cause: of unknown cause FH: stroke FATHER, , Age: 69, Cause: of unknown cause Alcohol Use: Occasionally Drug Use: none Lives with: S/O Lives In: Home Review of Systems ROS Review of systems limited secondary to patient's clinical condition Physical Exam Vital Signs: Temperature: 97.9, Source: Oral, Heart Rate: 61, Respiratory Rate: 13, BP: 95/67, Pulse Oximetry: 91, Weight: 124.500 Oxygen Flow Rate: 5.0 Physical Exam General: Patient is sleeping, easily arousable, appears fluid overloaded Head: Normocephalic and atraumatic. Eyes: Conjunctival normal. EOMI. PERRL. ENT: Mucous membranes moist. Nasal cannula in place Neck: Supple, trachea is midline. Chest: Clear to auscultation bilaterally without rales, rhonchi, or wheezes. There is no accessory muscle use or retractions. Cardiac: RRR without murmurs, gallops, or rubs. Abd: Soft, nondistended, nontender, with normoactive bowel sounds. No guarding, rebound, or rigidity. Neuro: Cranial nerves II-XII grossly intact. No focal neuro deficits. Progress Results/Orders Results/Orders Orders - ELLIS RODRIGUEZ MD Chest,Single View (04/13/25 19:31) Monitor (04/13/25 19:07) Saline Lock (04/13/25 19:07) Oxygen (04/13/25 19:07) Culture Blood (04/13/25 19:15) Abg (Arterial Blood Gas) (04/13/25 22:44) Bipap/Cpap (04/14/25 00:09) Cult Urine + [address] (04/14/25 00:14) Abg (Arterial Blood Gas) (04/14/25 ) Page Hospitalist (04/14/25 01:08) Fill Out Med Reconciliation (04/14/25 01:08) Completed Orders - ELLIS RODRIGUEZ MD Chest,Single View (04/13/25 19:31) Cbc/Diff (04/13/25 19:07) PBNP (04/13/25 19:07) Electrocardiogram (04/13/25 19:07) CMP (04/13/25 19:07) Hs Troponin I W Calculations (04/13/25 19:07) Hs Troponin I W Calculations (04/13/25 21:07) Hs Troponin I W Calculations (04/13/25 22:07) Procalcitonin (04/13/25 19:15) Lacticsepsis (04/13/25 19:15) Ua W/Microscopic, Cult If Ind (04/13/25 23:50) Ceftriaxone/[id number] 1gm (Rocephin 1 (04/14/25 01:10) Medications Received in ER Medications (Trade) Dose Ordered Sig/Connie Route PRN Reason Start Time Stop Time Status Last Admin Dose Admin Ceftriaxone Sodium 50 ml @ 100 mls/hr ONCE ONCE IV 04/14/25 01:10 04/14/25 01:39 DC 04/14/25 02:23 100 MLS/HR Vital Signs 04/13/25 04/13/25 04/13/25 04/13/25 19:10 19:44 21:00 21:39 Temp 97.9 97.9 Pulse 62 61 61 Resp 15 12 11 13 B/P (MAP) 86/47 102/44 (63) 95/67 (76) Pulse Ox 92 93 91 O2 Flow Rate 5.0 5.0 5.0 04/13/25 04/13/25 04/14/25 23:38 23:43 01:32 Pulse 59 61 Resp 18 11 18 B/P (MAP) 95/62 (73) Pulse Ox 90 92 FiO2 40 45 Laboratory Tests Test 04/13/25 19:14 04/13/25 19:28 04/13/25 21:12 04/13/25 22:15 White Blood Count 3.6 L Red Blood Count 2.51 L Hemoglobin 7.0 *L Hematocrit 22.9 L Mean Corpuscular Volume 91.4 Mean Corpuscular Hemoglobin 28.1 Mean Corpuscular Hemoglobin Concent 30.7 L Red Cell Distribution Width 18.1 H Platelet Count 107 L Mean Platelet Volume 6.8 L Neutrophils (%) (Auto) 81.8 H Lymphocytes (%) (Auto) 9.9 L Monocytes (%) (Auto) 7.1 Eosinophils (%) (Auto) 0.9 Basophils (%) (Auto) 0.3 Neutrophils # (Auto) 2.9 Lymphocytes # (Auto) 0.4 L Monocytes # (Auto) 0.3 Eosinophils # (Auto) 0.0 Basophils # (Auto) 0.0 CBC Comment Sodium Level 134 L Potassium Level 5.3 H Chloride Level 102 Carbon Dioxide Level 21.9 L Anion Gap 10 Blood Urea Nitrogen 51 H Creatinine 8.44 H Estimated GFR/1.73 m2 6 BUN/Creatinine Ratio 6.0 L Glucose Level 103 Calcium Level 6.6 L Total Bilirubin 0.4 Aspartate Amino Transf (AST/SGOT) 12 Alanine Aminotransferase (ALT/SGPT) 12 Alkaline Phosphatase 102 Troponin I High Sensitivity 10 10 10 Pro-B-Type Natriuretic Peptide 15890 H Total Protein 4.8 L Albumin 2.0 L Globulin 2.8 Albumin/Globulin Ratio 0.7 L Procalcitonin 0.25 Chemistry Comments Lactic Acid Level 0.9 Troponin I High Sens Percent Delta 0 0 Troponin I Hi Sens Absolute Change 0 0 Test 04/13/25 23:12 04/13/25 23:50 04/14/25 00:46 Blood Gas Specimen Type Arterial Arterial Blood Gas Puncture Site Rb Rb O2 Saturation 88.2 L 91.1 L Arterial Blood pH (Temp corrected) 7.177 *L 7.205 *L Arterial Blood pCO2 (Temp correct) 60.1 *H 49.1 H Arterial Blood pO2 (Temp corrected) 64.6 L 70.5 L Arterial Blood PO2/FiO2 Ratio 1.66 1.61 Arterial Blood HCO3 21.9 19.1 L Arterial Blood Base Excess -6.6 L -8.6 L Arterial Blood Oxyhemoglobin 87.2 L 90.2 L Arterial Blood Carboxyhemoglobin 0.8 0.7 Arterial Blood Methemoglobin 0.3 0.3 Arterial Blood Deoxyhemoglobin 11.7 H 8.8 H Robert Test Na Na Blood Gas Hemoglobin 9.2 L 9.3 L Blood Gas Temperature 36.6 36.6 Blood Gas Liter Flow 5 Blood Gas Modality Nasal cannula Mask - bipap FiO2 40.0 45.0 Blood Gas Critical Value Called To md Emma Jones md Urine Specimen Description Cln catch midstream Urine Color Yellow Urine Clarity Cloudy Urine pH 8.0 Urine Specific [place] 1.020 Urine Protein 100 H Urine Glucose (UA) Negative Urine Ketones Negative Urine Occult Blood Small Urine Nitrite Negative Urine Bilirubin Negative Urine Urobilinogen 0.2 Urine Leukocyte Esterase Large H Urine RBC 3-10 Urine WBC Tntc H Urine Squamous Epithelial Cells None seen Urine Bacteria 1+ Urine Culture Indicated Indicated Volume Urine Centrifuged 10 ml Urine Comment Urine Opiates Screen Negative Urine Methadone Screen Negative Urine Fentanyl Screen Negative Urine Barbiturates Screen Negative Urine Phencyclidine Screen Negative Urine Amphetamines Screen Negative Urine Benzodiazepines Screen Negative Urine Cocaine Screen Negative Urine Cannabinoids Screen Negative Drug Screen Comment Blood Gas Set Respiration Rate 14 Microbiology Date/Time Source Procedure Growth Status 04/14/25 00:14 Urine Clean Catch Midstream Urine Culture - Preliminary Culture received. Resulted 04/13/25 19:45 Blood Arm Right Blood Culture - Preliminary NEGATIVE (LESS THAN 24 HOURS) Resulted EKG/XRAY/CT/US/VASC/MRI EKG : Additional Comment EKG interpreted by myself shows time of 1913, rate 62, sinus rhythm, normal axis, no ST changes Chest X-Ray : Additional Comments Exam: CHEST,SINGLE VIEW CHEST RADIOGRAPH Indication: CP Technique: Single frontal view of the chest was obtained Comparison: DI CHEST,SINGLE VIEW on DOS: 04/08/25, DI CHEST,SINGLE VIEW on DOS: 04/04/25, DI CHEST,SINGLE VIEW on DOS: 01/17/25, DI CHEST,SINGLE VIEW on DOS: 01/03/25, DI CHEST,SINGLE VIEW on DOS: 01/01/25 FINDINGS: Lines and Tubes: None Lungs: No focal consolidation. Pleura: No effusion. No pneumothorax. Cardiomediastinal contours: Cardiac silhouette is within the limits of normal. There is uncoiling atherosclerotic change thoracic aorta. Bones: No acute osseous abnormality. IMPRESSION: 1. No acute cardiopulmonary disease. Medical Decision Making Findings Patient presents to the emergency room with altered mental status. Differentials include but are not limited to metabolic encephalopathy, stroke, medication side effect, hypercarbia therefore emergent labs and imaging indicated. Patient will require admission as this suspect his metabolic encephalopathy is secondary to missing his dialysis. Patient also has history of urinary tract infection which has been difficult to treat. Noted hypercapnia in his improving on BiPAP. Patient has fluid overload and we will need dialysis Departure Admitted to Inpatient Unit: yes, to hospitalist Impression: Primary Impression: Metabolic encephalopathy Additional Impressions: End-stage renal disease on hemodialysis Anemia Referrals: NO PRIMARY CARE PROVIDER (PCP) WESLEY LEES MD Critical Care Note Total Time (mins): 77 Critical Care Note The very real possibility of a deterioration of this patient's condition required the highest level of my preparedness for sudden, emergent intervention. I provided critical care services, which included medication orders, frequent reevaluations of the patient's condition and response to treatment, ordering and reviewing test results, and discussing the case with various consultants. Excludes time spent performing separately billable procedures. The critical care time associated with the care of the patient was 77 minutes not counting procedures Signature Scribe Signature: No scribe Attestation: The note accurately reflects work and decisions made by me.Ellis Rodriguez MD 04/14/25 05:40 ELLIS RODRIGUEZ MD April 13, 2025 22:33
[2025-04-13 23:15] LABS: ABG BASE EXCESS -6.6 mmol/L (-2.0-3.0); ABG HCO3 21.9 mmol/L (21.0-28.0); ABG OXYGEN SATURATION 88.2 % (94.0-98.0); ABG PCO2 (T) 60.1 mmHg (35.0-48.0); ABG PH (T) 7.177 (7.350-7.450); ABG PO2 (T) 64.6 mmHg (83.0-108.0); FCOHb 0.8 % (0.5-1.5); FHHb 11.7 % (0.0-5.0); FLOW 5 L/min; FMetHb 0.3 % (0.0-1.5); FO2Hb 87.2 % (94.0-98.0); MODE NASAL CANNULA; PATIENT TEMPERATURE 36.6; TOTAL HEMOGLOBIN 9.2 G/dl (13.5-17.5)
[2025-04-13 23:38] VITALS: PULSE 59; RESP 18; O2SAT 90
[2025-04-14] VITALS (28 sets, daily range): BP systolic 84–139; BP diastolic 45–114; PULSE 49–78; RESP 12–26; TEMP 97.1–98.5; O2SAT 90–100
[2025-04-14 00:02] LABS: BILIRUBIN,URINE NEGATIVE (Neg); COLOR,URINE YELLOW (Yellow); GLUCOSE, URINE NEGATIVE (Neg); KETONES,URINE NEGATIVE (Neg); LEUKOCYTE ESTERASE ,URINE LARGE (Neg); NITRITES, URINE NEGATIVE (Neg); OCCULT BLOOD,URINE SMALL (Neg); PROTEIN,URINE 100 mg/dl (Neg); UROBILINOGEN,URINE 0.2 E.U/dL (0.2-1.0)
[2025-04-14 00:05] LABS: CLARITY,URINE CLOUDY (Clear); UA COLLECTION TYPE CLN CATCH MIDSTREAM
[2025-04-14 00:14] LABS: BACTERIA,URINE 1+ /HPF (Neg); SQUAMOUS EPITHELIAL CELL,UR NONE SEEN /LPF (FEW); WBC,URINE TNTC /HPF (0-4)
[2025-04-14 00:50] LABS: ABG BASE EXCESS -8.6 mmol/L (-2.0-3.0); ABG HCO3 19.1 mmol/L (21.0-28.0); ABG OXYGEN SATURATION 91.1 % (94.0-98.0); ABG PCO2 (T) 49.1 mmHg (35.0-48.0); ABG PH (T) 7.205 (7.350-7.450); ABG PO2 (T) 70.5 mmHg (83.0-108.0); FCOHb 0.7 % (0.5-1.5); FHHb 8.8 % (0.0-5.0); FMetHb 0.3 % (0.0-1.5); FO2Hb 90.2 % (94.0-98.0); MODE MASK - BIPAP; PATIENT TEMPERATURE 36.6; RESPIRATORY RATE 14 b/min; TOTAL HEMOGLOBIN 9.3 G/dl (13.5-17.5)
[2025-04-14] MEDS ORDERED: potassium Cl 40MEQ/1/2NS 520ml 520 ML IV PRN (01:50)
[2025-04-14] MEDS ORDERED: ondansetron/PF 4mg/2ml inj IV PRN (01:50)
[2025-04-14] MEDS ORDERED: potassium Cl 20 mEq SR tablet PO PRN ×2 (01:50)
[2025-04-14] MEDS ORDERED: magnesium hydroxide 30ml (MOM) UD suspension PO PRN (01:50)
[2025-04-14] MEDS ORDERED: magnesium Cl slow-release 64mg tablet PO PRN (01:50)
[2025-04-14] MEDS ORDERED: magnesium sulf-water 4G/100mL 100 ML IV PRN (01:50)
[2025-04-14] MEDS ORDERED: magnesium sulf-water 2g/50mL 50 ML IV PRN (01:50)
[2025-04-14] MEDS: CefTRIAXone/D5W-Rocephin 1gm 50 ML IV ONE (02:23)
--- NOTE | 2025-04-14 02:58 | HISTORY AND PHYSICAL-Residence ---
History & Physical Providers to CC Resident Creating Document: HALEY CISSE, RES ~ History of Present Illness Primary Medical Doctor: Inez Holguin MD Reason for Admit\Complaint: ALOC, ESRD, UTI History of Present Illness The patient is a 70-year-old male with past medical history of recurrent MDRO Klebsiella UTI, ESRD on HD, HTN, BPH, AFib, with a history of multiple hospital admissions, was brought to the ED with altered level of consciousness. The family is not at bedside. As per the records, the patient missed his last dialysis appointment on Sunday and is scheduled for another one tomorrow. On arrival, the patient was found to be fluid overloaded and also in respiratory acidosis, improved with BiPAP, UTI. Patient admitted for hemodialysis tomorrow and treatment of UTI. The patient received IV ceftriaxone in the ER. Allergies: Coded Allergies: Iodinated Contrast Media (Verified Allergy, Severe, SOB, DIAPHORETIC, 01/17/25) bee venom protein (honey bee) (Verified Allergy, Unknown, 05/31/24) iodine (Verified Adverse Reaction, Intermediate, SEE COMMENTS, 01/17/25) 1998 post ivp- pt c/o chest and abd pain- to er- no treatment needed- resolved. Home Medications Home Medications Active Ferrous Sulfate 325 Mg (65 Mg Iron) Tablet 325 Mg PO DAILY 30 Days Reported Aspirin 325 Mg Tablet 1 Tab PO DAILY Prilosec (Omeprazole) 40 Mg Capsule 2 Cap PO BID Midodrine Hcl 10 Mg Tablet 1 Tab PO DAILY Amiodarone HCl 200 Mg Tablet 1 Tab PO BID Gabapentin 600 Mg Tablet 0.5 Tab PO HS 30 Days Flomax* (Tamsulosin HCl) 0.4 Mg Cap.sr.24h 1 Cap PO DAILY 30 Days Coreg* (Carvedilol) 12.5 Mg Tablet 0.5 Tablet PO BID Multi Vitamin Daily (Multivitamin) 1 Each Tablet 1 Tab PO DAILY 30 Days Fish Oil 1,000 Mg Ec Softgel ([place]-3/Dha/Epa/Fish Oil) 300 Mg-1,000 Mg Capsule.dr 1 Cap PO Q12H 30 Days Dialyvite Tablet (Folic Acid/Vitamin B Comp W-C) Unknown Strength Tablet 1 Tab PO DAILY 30 Days Modafinil 200 Mg Tablet 1 Tab PO DAILY PRN Trelegy Ellipta 100-62.5-25 (Fluticasone/Umeclidin/Vilanter) 100-62.5 Blst.w.dev 1 Puffs INH QAM Calcium Acetate 667 Mg Capsule 2 Cap PO TID Diazepam 5 Mg Tablet 5 Mg PO DAILY PRN 30 Days Percocet 10-325 mg Tablet (Oxycodone HCl/Acetaminophen) 10 Mg-325 Mg Tablet 1 Tab PO Q8H PRN MDD 6 Tablet(s) Duloxetine HCl 60 Mg Capsule.dr 60 Mg PO DAILY 30 Days Past Medical History Past Medical History COPD, chronic respiratory failure on home oxygen at 4 L/min ESRD on HD, TTS Chronic anemia History of UTIs MDRO Klebsiella Chronic back pain Heart failure Obesity ?MINA History of renal stones Tardive dyskinesia Past Surgical History Surgical History Comment Appendectomy Cholecystectomy Orthopedic surgeries Family History Family History: (DM Type 2) Diabetes mellitus type 2 MOTHER ( ), , Age: 68, Cause: of unknown cause FH: breast cancer MOTHER ( ), , Age: 68, Cause: of unknown cause FH: stroke FATHER, , Age: 69, Cause: of unknown cause Past Social History Social History Comment Uses oxygen at home, uses wheelchair for ambulation, [place] [facility] [place] Lives with his Ex-smoker, quit smoking in 2014 4 packs per day for 50 years- 200 pack years Occasional alcohol use Denies illicit drug use Does not smoke marijuana Smoking: Non-Smoker, Cigarettes Alcohol Use: Occasionally Drug Use: None Lives with: S/O Lives In: Home ROS ROS Unable to elicit because of the patient's condition Exam Vitals: Vital Signs Date Time Temp Pulse Resp B/P (MAP) Pulse Ox O2 Delivery O2 Flow Rate FiO2 04/14/25 02:04 60 17 90 45 17 04/14/25 01:32 95/62 (73) 04/13/25 21:39 97.9 5.0 General: Elderly male, altered, on BiPAP Head: Normocephalic with an atraumatic Eyes: Pupils- 3mm, reacting to light, conjunctiva- anicteric Nose and throat: No polyps, septum- normal, no mucosal ulcers Neck: Supple, no lymphadenopathy, no carotid bruit Respiratory: On BiPAP, equal air entry bilaterally, no crackles heard Cardiac: Unable to appreciate heart sounds because of BiPAP Abdomen: non distended, no tenderness, no organomegaly, bowel sounds - heard Extremities: no clubbing, trace pedal edema, no deformities, peripheral pulses - 2+ Skin: warm and dry, no rash, no purpura Neuro: Could not be examined Diagnostic Data Last Recorded Lab Results: 04/13/25191304/13/251913 Advance Care Planning Advanced Care plannin - 30 Minutes (Full code by default) Additional Plan A 70-year-old male with past medical history of COPD, HTN, ESRD on HD, recurrent MDRO Klebsiella in urine, was brought to the hospital for ALOC. He is being admitted into the hospital for further evaluation and management. Plan: Altered level of consciousness Secondary to uremic encephalopathy vs UTI vs hypercarbic and hypoxemic RF CT head done recently on 04/08/2025 showed no acute intracranial abnormalities. Follow up with ammonia. TSH within normal limits. Continue BiPAP for hypercarbic and hypoxemic encephalopathy. Possible hemodialysis tomorrow for uremic encephalopathy. Antibiotics for metabolic encephalopathy secondary to UTI. ESRD on hemodialysis Hyperkalemia, 5.3 Hyperphosphatemia, 6.0 Nephrology consultation pending. Patient missed dialysis session on Sunday. Possible dialysis tomorrow. Continue calcium acetate for hyperphosphatemia. Acute on chronic Hypoxemic and hypercarbic encephalopathy Respiratory acidosis ABG at presentation-7.177/PO2 64.6, pCO2 60.1, normal bicarb. Patient is started on BiPAP, pH improved to 7.205, pCO2 49.1, PO2 70.5. Continue BiPAP. Urinary tract infection History of MDRO Klebsiella Urinalysis positive for leukocyte esterase, negative nitrites. Patient received IV ceftriaxone in the ER. Patient had similar picture of urinalysis during the last admission, negative urine cultures. Starting the patient on empiric IV ceftriaxone. Patient has a history of MDR Klebsiella, sensitive to meropenem only. Follow up with urine cultures and start meropenem if needed. History of CHF, likely not in exacerbation Elevated proBNP 80465. Likely secondary to ESRD and missed dialysis. Echocardiogram from 01/20 showed EF of 50-55% and PASP 40 mmHg. Anemia of chronic disease Leukopenia Thrombocytopenia Hemoglobin 7.0. Patient is currently overloaded. Consider transfusing tomorrow after dialysis if hemoglobin is still low. Monitor H&H. Follow up with the stool occult. Chronic pain Continue gabapentin, Percocet. Depression Continue duloxetine. BPH Continue tamsulosin. Code Status: Full code by default Line/tube: PIV DVT prophylaxis: Heparin Nutrition: Renal diet PT: Ordered Prognosis: Guarded Disposition: We will admit the patient into [facility]. Nephrology consultation and HD tomorrow. Monitor H&H. Patient seen and examined with Geremias Cisse. Will need to have a repeat blood gas showing improvement, otherwise will need to stay on BIPAP and be admitted to the ICU until clearly improving. Plan reviewed with bedside team. Patient seen through remote audiovisual assessment through HIPAA compliant setup. All labs, flowsheets, and images reviewed Cumulative nonprocedural care time spent in directed patient care = 35 min Haley Cisse MD Internal Medicine Resident, PGY-1 Date of Service: April 14, 2025 Billing Provider: YEISON KRUGER MD, SOWMYA MANJARI, RES April 14, 2025 02:58 YEISON KRUGER MD April 14, 2025 07:09
[2025-04-14 03:12] LABS: PROTHROMBIN TIME 10.7 SECONDS (9.0-12.0)
[2025-04-14 03:24] LABS: MAGNESIUM 2.4 MG/DL (1.5-2.4); THYROID STIMULATING HORMONE 1.99 ulU/ml (0.34-4.50)
[2025-04-14 04:05] LABS: HEMOGLOBIN 8.4 g/dl (14.0-17.9); MEAN CORPUSCULAR HEMOGLOBIN 28.3 PG (27.0-31.0); MEAN CORPUSCULAR HGB CONC 31.1 g/dL (33.0-36.5); MEAN CORPUSCULAR VOLUME 90.9 FL (78-98); MEAN PLATELET VOLUME 7.1 FL (7.4-10.4); PLATELET COUNT 123 X10'3 (140-440); RED BLOOD COUNT 2.98 X10'6 (4.70-6.10); RED CELL DISTRIBUTION WIDTH 18.2 % (11.5-14.5); WHITE BLOOD COUNT 4.4 X10'3 (4.5-11.0)
[2025-04-14 04:06] LABS: URINE AMPHETAMINE SCREEN NEGATIVE (Neg); URINE BARBITUATE SCREEN NEGATIVE (Neg); URINE BENZODIAZEPINES SCREEN NEGATIVE (Neg); URINE CANNABINOID SCREEN NEGATIVE (Neg); URINE COCAINE SCREEN NEGATIVE (Neg); URINE METHADONE SCREEN NEGATIVE (Neg); URINE OPIATE SCREEN NEGATIVE (Neg); URINE PHENCYCLIDINE SCREEN NEGATIVE (Neg)
[2025-04-14] MEDS ORDERED: carVEDilol 12.5mg tablet PO SCH (08:00)
[2025-04-14] MEDS ORDERED: Fluticasone/Umeclidin/Vilanter (Trelegy Ellipta 100-62.5-25) IH SCH (08:00)
[2025-04-14] MEDS ORDERED: heparin, porcine 5000 units/ml vial SQ SCH (08:00)
[2025-04-14] MEDS: K and/or MAG REPLACEMENT MC SCH (08:00)
[2025-04-14] MEDS: amiodarone 200mg tablet PO SCH (08:11)
[2025-04-14] MEDS: tamsulosin 0.4mg capsule PO SCH (08:12)
[2025-04-14] MEDS: calcium acetate 667mg (PhosLO) capsule PO SCH (08:12)
[2025-04-14] MEDS: docusate sod 100mg capsule PO SCH (08:12)
[2025-04-14] MEDS: duloxetine 30mg CAPSULE.DR PO SCH (08:12)
[2025-04-14] MEDS: pantoprazole 40mg Tablet.DR PO SCH (08:13)
[2025-04-14] MEDS: midodrine 5mg tablet PO SCH (08:13)
[2025-04-14 08:55] LABS: ABG BASE EXCESS -6.8 mmol/L (-2.0-3.0); ABG HCO3 21.2 mmol/L (21.0-28.0); ABG OXYGEN SATURATION 92.3 % (94.0-98.0); ABG PCO2 (T) 55.3 mmHg (35.0-48.0); ABG PO2 (T) 72.6 mmHg (83.0-108.0); ALLEN'S TEST POSITIVE; FCOHb 1.6 % (0.5-1.5); FHHb 7.6 % (0.0-5.0); FMetHb 0.3 % (0.0-1.5); FO2Hb 90.5 % (94.0-98.0); MODE MASK - BIPAP; PATIENT TEMPERATURE 36.7; RESPIRATORY RATE 14 b/min; TOTAL HEMOGLOBIN 8.9 G/dl (13.5-17.5)
[2025-04-14 10:23] LABS: HEMATOCRIT 26.9 % (42.0-52.0); HEMOGLOBIN 8.3 g/dl (14.0-17.9); MEAN CORPUSCULAR HEMOGLOBIN 28.1 PG (27.0-31.0); MEAN CORPUSCULAR VOLUME 90.5 FL (78-98); MEAN PLATELET VOLUME 7.1 FL (7.4-10.4); PLATELET COUNT 135 X10'3 (140-440); RED BLOOD COUNT 2.97 X10'6 (4.70-6.10); RED CELL DISTRIBUTION WIDTH 17.9 % (11.5-14.5); WHITE BLOOD COUNT 4.3 X10'3 (4.5-11.0)
--- NOTE | 2025-04-14 10:45 | CONSULTATION REPORT - RESIDENT ---
Consult Providers to CC Resident Creating Document: KAREN HAYNES RES History of Present Illness Reason for Admit\Complaint: Altered level of consciousness History of Present Illness 70-year-old male with history of ESKD on HD TTS, anemia, recently undergone blood transfusions and the discharged on 04/12 from this hospital. Today he was BIB EMS, after he was found to be in altered mental status by his at home. Patient said he missed his dialysis on Sunday after being discharged on . His pertinent usually takes him for dialysis, he is a poor historian and is not able to remember why he missed his dialysis. He is not sure why he is admitted again to the hospital. All he remembers is going home and being back at the hospital. He was hypercapnic in the ED and was started on BiPAP. Did Not have any hypoglycemia. His blood pressure usually runs low at his home and he uses midodrine. In the ER, patient mental status improved after he was put on BiPAP. A Patricia was inserted due to presumed urinary retention by the night team. Patient stated he had Patricia catheter on and off for the past two years. He had some urologic intervention long time ago. He also had history of UTIs before. he denies any dysuria or hematuria, however he also stated he does not void much. Denies fever, flank pain, nausea, vomitings, abdominal pain In the ER he received IV Rocephin for presumed UTI. Infectious diseases was involved during the last admission and they recommended ceftazidime. He was also discharged on oral ceftazidime to finish the course. Allergies: Coded Allergies: Iodinated Contrast Media (Verified Allergy, Severe, SOB, DIAPHORETIC, 01/17/25) bee venom protein (honey bee) (Verified Allergy, Unknown, 05/31/24) iodine (Verified Adverse Reaction, Intermediate, SEE COMMENTS, 01/17/25) 1998 post ivp- pt c/o chest and abd pain- to er- no treatment needed- resolved. Home Medications Home Medications Active Ferrous Sulfate 325 Mg (65 Mg Iron) Tablet 325 Mg PO DAILY 30 Days Reported Aspirin 325 Mg Tablet 1 Tab PO DAILY Prilosec (Omeprazole) 40 Mg Capsule 2 Cap PO BID Midodrine Hcl 10 Mg Tablet 1 Tab PO DAILY Amiodarone HCl 200 Mg Tablet 1 Tab PO BID Gabapentin 600 Mg Tablet 0.5 Tab PO HS 30 Days Flomax* (Tamsulosin HCl) 0.4 Mg Cap.sr.24h 1 Cap PO DAILY 30 Days Coreg* (Carvedilol) 12.5 Mg Tablet 0.5 Tablet PO BID Multi Vitamin Daily (Multivitamin) 1 Each Tablet 1 Tab PO DAILY 30 Days Fish Oil 1,000 Mg Ec Softgel ([place]-3/Dha/Epa/Fish Oil) 300 Mg-1,000 Mg Capsule. 1 Cap PO Q12H 30 Days Dialyvite Tablet (Folic Acid/Vitamin B Comp W-C) Unknown Strength Tablet 1 Tab PO DAILY 30 Days Modafinil 200 Mg Tablet 1 Tab PO DAILY PRN Trelegy Ellipta 100-62.5-25 (Fluticasone/Umeclidin/Vilanter) 100-62.5 Blst.w.dev 1 Puffs INH QAM Calcium Acetate 667 Mg Capsule 2 Cap PO TID Diazepam 5 Mg Tablet 5 Mg PO DAILY PRN 30 Days Percocet 10-325 mg Tablet (Oxycodone HCl/Acetaminophen) 10 Mg-325 Mg Tablet 1 Tab PO Q8H PRN MDD 6 Tablet(s) Duloxetine HCl 60 Mg Capsule.dr 60 Mg PO DAILY 30 Days Past Medical History Past Medical History copd, chronic respiratory failure on home oxygen at 4 L/min ESRD on HD, TTS reCurrent anemia Hypotension History of UTIs Chronic back pain Heart failure Obesity ?mina History of renal stones Tardive dyskinesia Past Surgical History Surgical History Comment Appendectomy Cholecystectomy Orthopedic surgeries Family History Family History: (DM Type 2) Diabetes mellitus type 2 MOTHER ( ), , Age: 68, Cause: of unknown cause FH: breast cancer MOTHER ( ), , Age: 68, Cause: of unknown cause FH: stroke FATHER, , Age: 69, Cause: of unknown cause Past Social History Social History Comment uses oxygen at home, uses wheelchair for ambulation, [place] up with [place] [facility] [place] with his Ex-smoker, quit smoking in 2014 4 packs per day for 50 years- 200 pack years Occasional alcohol use Denies illicit drug use Does not smoke marijuana ROS ROS Constitutional: Positive for fatigue, dizziness HEENT: No blurring of the vision, No sore throat, history of epistaxis in the past Cardiovascular: No chest pain/discomfort, palpitations, syncope. No pedal edema Respiratory: No cough,, hemoptysis, positive for exertional dyspnea Gastrointestinal: No abdominal pain, nausea, vomiting. No diarrhea, constipation, melena. Genitourinary: No frquency, urgency, incontinence, nocturia. No dysuria, hematuria Musculoskeletal: No arthralgia, myalgia Endocrine: No polydipsia, polyuria. No heat or cold intolerance Neurologic: No headache, vertigo. No weakness, numbness or tingling of extremities, positive for altered mental status Psychiatric: No hallucinations/delusions, no anhedonia, no suicidal ideation\ Hematologic: No bleeding or bruises Exam Vitals: Vital Signs Date Time Temp Pulse Resp B/P (MAP) Pulse Ox O2 Delivery O2 Flow Rate FiO2 04/14/25 07:46 59 15 94 45 15 04/14/25 06:12 Bi-pap/CPAP 5.0 04/14/25 04:45 98.1 139/114 (122) General: General: Elderly male, AAO x3, not in apparent distress, on 5 L of oxygen through nasal cannula, Patricia's catheter in place Head: Normocephalic with an atraumatic Eyes: Pupils- 3mm, reacting to light, conjunctiva- anicteric Nose and throat: No polyps, septum- normal, no mucosal ulcers Neck: Supple, no lymphadenopathy, no carotid bruit Respiratory: No use of accessory muscles of respiration, Bilateral normal breath sounds, no crackles Cardiac: S1-S2 heard, rythm regular, no gallop/murmur Abdomen: Obese, non distended, no tenderness, no organomegaly, bowel sounds- heard Extremities: no clubbing, 2+ nonpitting pedal edema, no deformities, peripheral pulses- 2+ Skin: warm and dry, no rash, no purpura Neuro: No focal deficit, gross cranial nerve exam- normal Diagnostic Data Last Recorded Lab Results: 04/14/25 0256 04/13/25 1914 Diagnostic Data: Laboratory Tests Test 04/14/25 02:56 Prothrombin Time 10.7 SECONDS (9.0-12.0) INR International Normalized Ratio 1.0 INR Coagulation Comments Additional Plan 70-year-old male with ESKD on HD TTS, chronic anemia s/p two PRBC transfusion on 04/06, chronic HFpEF, COPD on home O2, obesity, MINA, hypotension, presented to the ER with chief complaints of altered mental status. ESKD on HD/TTS -Nephrology on board. DC Patricia's -HD today Altered mental status -differentials here includes hypoxemic/hypercapnic encephalopathy vs toxic encephalopathy (patient is on diazepam and Percocet) vs metabolic encephalopathy secondary to UTI -altered mental status improved with oxygen supplementation. ABG did not show any CO2 retention. TSH, ammonia, lactic acid normal Acute on chronic hypercapnic respiratory failure COPD not in acute exacerbation -oxygen sats improved with NRBM currently patient is on nasal cannula at 5 L/min -CXR- showed no acute intracranial abnormalities -monitor oxygen sats, head elevation of 30 -albuterol nebulization p.r.n. 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 Stopped ceftriaxone and start ceftazidime -previous urine cultures showed E coli pansensitive -follow up on urine cultures and blood culture -procalcitonin slightly elevated at 0.25 Hyperphosphatemia Hyperkalemia -continue calcium acetate -continue monitoring potassium Anemia- anemia of chronic disease Leukopenia Thrombocytopenia -hemoglobin stable at 8.4 -TSAT is low, patient qualifies for IV iron infusion however in view of active UTI, IV iron is held now -monitor CBC Chronic pain -continue gabapentin, Percocet Depression -continue duloxetine BPH -continue tamsulosin Code Status: Full code Line/tube: PIV DVT prophylaxis: Heparin Nutrition: Renal diet PT: yes Prognosis: Guarded Disposition: Continue care in PCU Karen Aguilar MD IM PGY-1 resident Attending note: Patient seen and examined. Care plan reviewed with the resident. undergoing dialysis currently. cultures pending. discussed with his . he missed the dialysis on Sunday. He usually undergoes hd on TTs. Recently treated for UTi with Fortaz. will follow up with the hospitalist team. Brennan Bull MD Nephrology Date of Service: April 14, 2025 Billing Provider: BRENNAN BULL MD, DEEPIKA BANDI, RES April 14, 2025 10:45 BRENNAN BULL MD April 14, 2025 18:39
[2025-04-14] MEDS: LIDOcaine 1% (10mg/ml) 2ml vial SQ ONE (11:53)
[2025-04-14] MEDS: albumin (human) 25% 100ml IV 100 ML IV PRN (11:54)
[2025-04-14] MEDS: EPOETIN ALFA-EPBX 20,000 UNIT/ML 1 ML MDV IV ONE (12:45)
[2025-04-14] MEDS: heparin 1,000unit/ml 10ml vial 10 ML IV ONE (12:47)
[2025-04-14] MEDS: heparin 1,000 units/ml 10ml inj IV ONE (12:48)
[2025-04-14 15:29] LABS: HEMOGLOBIN 8.7 g/dl (14.0-17.9); MEAN CORPUSCULAR HEMOGLOBIN 28.6 PG (27.0-31.0); RED BLOOD COUNT 3.03 X10'6 (4.70-6.10); WHITE BLOOD COUNT 4.8 X10'3 (4.5-11.0)
[2025-04-14 15:31] LABS: MEAN CORPUSCULAR VOLUME 89.3 FL (78-98); MEAN PLATELET VOLUME 7.4 FL (7.4-10.4); PLATELET COUNT 121 X10'3 (140-440); RED CELL DISTRIBUTION WIDTH 17.5 % (11.5-14.5)
[2025-04-14] MEDS: cefTAZidime 1 GM/NS 100ML IVPB 100 ML IV SCH (15:39)
[2025-04-14 15:57] LABS: ABG BASE EXCESS 1.8 mmol/L (-2.0-3.0); ABG HCO3 29.4 mmol/L (21.0-28.0); ABG OXYGEN SATURATION 99.8 % (94.0-98.0); ABG PCO2 (T) 62.8 mmHg (35.0-48.0); ABG PH (T) 7.286 (7.350-7.450); ABG PO2 (T) 250.7 mmHg (83.0-108.0); ALLEN'S TEST POSITIVE; FCOHb 1.1 % (0.5-1.5); FHHb 0.2 % (0.0-5.0); FMetHb 0.3 % (0.0-1.5); FO2Hb 98.4 % (94.0-98.0); MODE MASK - BIPAP; PATIENT TEMPERATURE 36.6; RESPIRATORY RATE 20 b/min; TOTAL HEMOGLOBIN 9.1 G/dl (13.5-17.5)
[2025-04-14] MEDS: gabapentin 300mg capsule PO SCH (20:11)
[2025-04-14 21:54] LABS: HEMATOCRIT 24.6 % (42.0-52.0); HEMOGLOBIN 7.8 g/dl (14.0-17.9); MEAN CORPUSCULAR HEMOGLOBIN 28.5 PG (27.0-31.0); MEAN CORPUSCULAR HGB CONC 31.7 g/dL (33.0-36.5); MEAN PLATELET VOLUME 6.8 FL (7.4-10.4); PLATELET COUNT 120 X10'3 (140-440); RED BLOOD COUNT 2.74 X10'6 (4.70-6.10); RED CELL DISTRIBUTION WIDTH 17.7 % (11.5-14.5); WHITE BLOOD COUNT 3.7 X10'3 (4.5-11.0)
[2025-04-15] VITALS (21 sets, daily range): BP systolic 85–127; BP diastolic 39–72; PULSE 67–84; RESP 16–28; TEMP 97.1–98.5; O2SAT 91–99
[2025-04-15 06:33] LABS: BASOPHILS % (AUTO) 0.3 % (0-1); EOSINOPHILS % (AUTO) 0.5 % (0-6); HEMATOCRIT 24.3 % (42.0-52.0); HEMOGLOBIN 7.8 g/dl (14.0-17.9); LYMPHOCYTES # (AUTO) 0.5 X10'3 (1.1-4.8); LYMPHOCYTES % (AUTO) 11.2 % (21-51); MEAN CORPUSCULAR HEMOGLOBIN 28.8 PG (27.0-31.0); MEAN CORPUSCULAR VOLUME 89.8 FL (78-98); MEAN PLATELET VOLUME 6.9 FL (7.4-10.4); MONOCYTES # (AUTO) 0.4 X10'3 (0-0.9); NEUTROPHILS # (AUTO) 3.2 X10'3 (1.8-7.7); PLATELET COUNT 122 X10'3 (140-440); RED BLOOD COUNT 2.71 X10'6 (4.70-6.10); RED CELL DISTRIBUTION WIDTH 17.1 % (11.5-14.5); WHITE BLOOD COUNT 4.1 X10'3 (4.5-11.0)
[2025-04-15 06:46] LABS: ALANINE AMINOTRANSFERASE 12 U/L (12-78); ALBUMIN 2.5 G/DL (3.4-5.0); ALBUMIN/GLOBULIN RATIO 0.7 (1.1-1.5); ALKALINE PHOSPHATASE 108 IU/L (46-116); ANION GAP 9 (8-16); ASPARTATE AMINO TRANSFERASE 15 U/L (10-37); BILIRUBIN,TOTAL 0.4 MG/DL (0.1-1.0); BLOOD UREA NITROGEN 31 MG/DL (7-18); BUN/CREATININE RATIO 4.3 (10.0-20.0); CALCIUM 8.1 MG/DL (8.5-10.1); CHLORIDE 101 MMOL/L (99-107); CHOL/HDL RATIO 3.4 (0.00-4.99); CHOLESTEROL 101 MG/DL (0-200); CREATININE 7.16 MG/DL (0.60-1.10); GLUCOSE 68 MG/DL (70-104); HDL CHOLESTEROL 30 MG/DL (35-60); LDL CHOLESTEROL 56 MG/DL (50-100); MAGNESIUM 2.1 MG/DL (1.5-2.4); PHOSPHORUS 4.3 MG/DL (2.3-4.5); POTASSIUM 4.7 MMOL/L (3.5-5.1); SODIUM 138 MMOL/L (135-145); TOTAL CARBON DIOXIDE 27.9 MMOL/L (24-32); TRIGLYCERIDES 84 MG/DL (20-135); eCRCL 9 ML/MIN; eGFR 8 ML/MIN
[2025-04-15] MEDS ORDERED: CefTRIAXone/D5W-Rocephin 1gm 50 ML IV SCH (08:00)
[2025-04-15] MEDS: iron sucrose complex injection 200 MG in normal saline 100ml IV soln 100 ML IV SCH (10:10)
[2025-04-15 14:00] LABS: FERRITIN 97 NG/ML (26-388)
[2025-04-15] MEDS: LIDOcaine 1% (10mg/ml) 2ml vial SQ ONE (14:04)
[2025-04-15 14:26] LABS: % IRON SATURATION 43 % (11-46); IRON 116 UG/DL (53-167); TOTAL IRON BINDING CAPACITY 268 UG/DL (259-388)
[2025-04-15] MEDS: EPOETIN ALFA-EPBX 20,000 UNIT/ML 1 ML MDV IV ONE (15:07)
--- NOTE | 2025-04-15 16:13 | PROGRESS NOTE ---
Daily Progress Note Providers to CC ~ Antibiotic Timeout Antibiotic Ordered?: Yes Subjective Patient denies any shortness of breath or chest pain or cough; he is trying to stay awake but he is not at his normal baseline Objective Vital Signs Date Time Temp Pulse Resp B/P (MAP) Pulse Ox O2 Delivery O2 Flow Rate FiO2 04/15/25 15:35 74 18 95/56 (69) 95 Bi-pap/CPAP 40 04/15/25 14:05 98.5 04/15/25 07:46 6 Result Diagram: 04/15/25 0515 04/15/25 0515 In bed in nonacute distress HEENT normal oral mucosa no JVD Lungs with decreased bilateral entry no crackles Heart normal rate and rhythm S1-S2 Abdomen is soft obese nontender bowel sounds present Extremities trace edema plus two pulses Awake alert grossly motor and sensory intact Coagulation Studies Laboratory Tests Test 04/14/25 02:56 Prothrombin Time 10.7 SECONDS (9.0-12.0) INR International Normalized Ratio 1.0 INR Coagulation Comments Problem\Assessment\Plan Patient was admitted for acute hypercapnic respiratory failure inpatient with known history of sleep apnea; has been on BiPAP all along with no necessarily much improved in his numbers; still remains a little bit encephalopathic and not at his baseline; case discussed with Pulmonary Dr. Hartman History of end-stage renal disease on hemodialysis received hemodialysis yesterday History of sleep apnea Morbid obesity with a BMI of 41 Recent UTI for which patient is supposed to receive ceftazidime with hemodialysis Anemia monitor Paroxysmal atrial fibrillation on amiodarone History of BPH on Flomax Diabetes mellitus type 2 Diabetic neuropathy on gabapentin Sepsis Screening Skin Color: Normal Date of Service: April 15, 2025 Billing Provider: RENUKA PAL MD Common Visit Codes: [id number] INP/OBS CARE(HIGH) RENUKA PAL MD April 15, 2025 16:13
[2025-04-15] MEDS: albumin (human) 25% 100ml IV 100 ML IV PRN (16:17)
--- NOTE | 2025-04-15 16:23 | PROGRESS NOTE- Residence ---
Progress Note - Resident Providers to CC Resident Creating Document: SHWETA ZALDIVAR, RES ~ Central Line/PICC still needed: Yes Patricia-Non Protocol Patricia Indications Met/Not Met: F/C Indications Not Met Antibiotic Timeout Antibiotic Ordered?: Yes Subjective Patient was seen and examined at bedside, he is currently requiring CPAP. Patient had hemodialysis yesterday and is due for another one tomorrow. Objective Vital Signs Date Time Temp Pulse Resp B/P (MAP) Pulse Ox O2 Delivery O2 Flow Rate FiO2 04/15/25 15:35 74 18 95/56 (69) 95 Bi-pap/CPAP 40 04/15/25 14:05 98.5 04/15/25 07:46 6 Result Diagram: 04/15/2551404/15/25514 Partially confused, currently on CPAP HEENT: Atraumatic, normocephalic, EOMI, anicteric sclera ; pink conjunctiva Neck: Trachea midline. Supple, full range of motion, no JVD Cardiac: Regular rhythm, regular rate with no murmurs all over the precordium. Respiratory: Equal breath sounds bilaterally, no tachypnea, no wheezing ,rub or rales, Chest wall is symmetric and without deformity. Gastrointestinal: Abdomen symmetric, non-distended, soft, non-tender, normal bowel sounds x4 quadrant, normoactive, no hepatosplenomegaly Musculoskeletal: Mild pedal edema, no cyanosis Neurological: Could not be performed Skin: Warm and dry Coagulation Studies Laboratory Tests Test 04/14/25 02:56 Prothrombin Time 10.7 SECONDS (9.0-12.0) INR International Normalized Ratio 1.0 INR Coagulation Comments Advance Care Planning Advanced Care plannin - 30 Minutes Assessment Assessment 70 years old male with a significant past medical history of ESRD on HD presented to the ED altered after missing his dialysis session. Plan Plan End-Stage Kidney Disease on Hemodialysis (HD) Chronic normocytic normochromic anemia secondary to above Creatinine post hemodialysis trended down to 7.16 from 8.4, probably due to recirculation Pre and post dialysis BUN to be ordered to measure the effectiveness of dialysis Nephrology actively managing. Patricia catheter discontinued. Patient underwent hemodialysis yesterday, 04/15/2025 Low iron and TSAT during the past admission, ordered IV iron therapy Repeat iron studies ordered, as patient was priorly discharged on p.o. iron therapy Altered Mental Status (AMS) Respiratory Acidosis with Metabolic Compensation Hypoxemic/hypercapnic encephalopathy vs Metabolic encephalopathy secondary to UTI. PH 7.28, pCO2 62.8, HC03 29.4 Patient is currently on CPAP Arterial blood gas (ABG) shows CO2 retention today TSH, ammonia, and lactic acid levels within normal limits. Acute on Chronic Hypercapnic Respiratory Failure COPD stable, no evidence of acute exacerbation. Oxygen saturation improved with NRBM; currently on CPAP. Chest X-ray (CXR): No acute findings. Plan: Continue monitoring oxygen saturation. Maintain head elevation at 30. Albuterol nebulization as needed for wheezing. Acute on Chronic Heart Failure with Preserved Ejection Fraction (HFpEF) NT-proBNP elevated at 15,000. 2D echo (March 2025): EF 50-55%, RVSP 40 mmHg. Clinical signs suggest mild volume overload, but low blood pressures preclude diuretic use. Fluid removal via HD. Carvedilol on hold due to hypotension; to restart once BP stabilizes. Continue midodrine 10 mg p.o. daily Urinary Tract Infection (UTI) History of Multidrug resistant Klebsiella and E coli UTI in the past Sterile pyuria noted. Urinalysis: Moderate leukocyte esterase, negative nitrites, many WBCs. Leukopenia present. Continue IV ceftazidime. Past urine cultures: E. coli pansensitive. Procalcitonin slightly elevated at 0.25. Follow-up pending urine and blood cultures. Hyperphosphatemia: Continue calcium acetate. Hyperkalemia: Ongoing monitoring. Anemia (Chronic Disease): Hemoglobin stable at 7.8 Continue monitoring Repeat iron studies ordered Initiated IV iron therapy Leukopenia & Thrombocytopenia: Monitor CBC. Chronic Pain Continue gabapentin and Percocet. Depression Continue duloxetine. Benign Prostatic Hyperplasia (BPH) Continue tamsulosin. Plan Summary: The patient is being closely monitored for clinical improvement in AMS, oxygenation, hemodynamic stability, and infection control. Adjustments to medications and interventions will be made based on ongoing assessments and laboratory findings. Code Status: Full code Nutrition: Renal diet PT: Ordered Prognosis: Guarded Disposition: Nephrology will continue to follow the patient. Case discussed with Dr. Nader Zaldivar MD Internal Medicine Resident, PGY-1 attending note: The patient seen and examined. Care plan reviewed with the resident.s He is now on Bipap. confused. will proceed with another run of HD today. I doubt if we can remove 4 liters today that I wish to, as he has borderline bP. he could be septic. He is on antibiotics per hospitalist team. as above. renal diet to continue strictly with ADA. Brennan Bull MD Nephrology Date of Service: April 15, 2025 Billing Provider: BRENNAN BULL MD, GAURAV, RES April 15, 2025 16:23 BRENNAN BULL MD April 15, 2025 18:34
[2025-04-15] MEDS: heparin 1,000 units/ml 10ml inj IV ONE (17:44)
[2025-04-15] MEDS: heparin 1,000unit/ml 10ml vial 10 ML IV ONE (17:45)
[2025-04-15] MEDS ORDERED: FLUT16SP BOTHNARES (22:33)
[2025-04-16] VITALS (12 sets, daily range): BP systolic 111–133; BP diastolic 48–61; PULSE 71–84; RESP 14–25; TEMP 97.3–98.1; O2SAT 94–97
[2025-04-16 05:55] LABS: BASOPHILS % (AUTO) 0.4 % (0-1); EOSINOPHILS % (AUTO) 0.7 % (0-6); HEMOGLOBIN 8.2 g/dl (14.0-17.9); LYMPHOCYTES # (AUTO) 0.7 X10'3 (1.1-4.8); LYMPHOCYTES % (AUTO) 17.9 % (21-51); MEAN CORPUSCULAR HEMOGLOBIN 28.1 PG (27.0-31.0); MEAN CORPUSCULAR HGB CONC 31.4 g/dL (33.0-36.5); MEAN CORPUSCULAR VOLUME 89.5 FL (78-98); MEAN PLATELET VOLUME 6.7 FL (7.4-10.4); MONOCYTES # (AUTO) 0.6 X10'3 (0-0.9); MONOCYTES % (AUTO) 15.4 % (2-12); NEUTROPHILS # (AUTO) 2.4 X10'3 (1.8-7.7); NEUTROPHILS % (AUTO) 65.6 % (42-75); PLATELET COUNT 157 X10'3 (140-440); RED CELL DISTRIBUTION WIDTH 17.6 % (11.5-14.5); WHITE BLOOD COUNT 3.7 X10'3 (4.5-11.0)
[2025-04-16 06:09] LABS: ALANINE AMINOTRANSFERASE 12 U/L (12-78); ALBUMIN 2.7 G/DL (3.4-5.0); ALBUMIN/GLOBULIN RATIO 0.8 (1.1-1.5); ALKALINE PHOSPHATASE 106 IU/L (46-116); ANION GAP 12 (8-16); ASPARTATE AMINO TRANSFERASE 5 U/L (10-37); BILIRUBIN,TOTAL 0.4 MG/DL (0.1-1.0); BLOOD UREA NITROGEN 18 MG/DL (7-18); BUN/CREATININE RATIO 3.4 (10.0-20.0); CHLORIDE 104 MMOL/L (99-107); CREATININE 5.33 MG/DL (0.60-1.10); GLUCOSE 68 MG/DL (70-104); PHOSPHORUS 2.8 MG/DL (2.3-4.5); SODIUM 142 MMOL/L (135-145); TOTAL CARBON DIOXIDE 26.2 MMOL/L (24-32); TOTAL PROTEIN 6.2 G/DL (6.4-8.2); eCRCL 12 ML/MIN; eGFR 11 ML/MIN
[2025-04-16] MEDS: CEFTAZIDIME IV SCH (07:39)
[2025-04-16] MEDS: NORMAL SALINE IV SCH (07:39)
[2025-04-16] MEDS: oxyCODONE/APAP 10/325mg tablet PO PRN (15:27)
--- NOTE | 2025-04-16 15:48 | PROGRESS NOTE- Residence ---
Progress Note - Resident Providers to CC Resident Creating Document: SHWETA ZALDIVAR, RES ~ Central Line/PICC still needed: Yes Patricia-Non Protocol Patricia Indications Met/Not Met: F/C Indications Not Met Antibiotic Timeout Antibiotic Ordered?: Yes Subjective Patient was seen and examined at bedside, he is currently requiring 4 L of oxygen via nasal cannula. Patient had hemodialysis yesterday and 4 L of fluid was pulled out Objective Vital Signs Date Time Temp Pulse Resp B/P (MAP) Pulse Ox O2 Delivery O2 Flow Rate FiO2 04/16/25 10:37 98.1 84 14 128/61 (83) 96 Bi-pap/CPAP 40 04/15/25 18:00 6.0 Result Diagram: 04/16/25 0504/16/25 05 Oriented, currently on 4 L of oxygen via nasal cannula HEENT: Atraumatic, normocephalic, EOMI, anicteric sclera ; pink conjunctiva Neck: Trachea midline. Supple, full range of motion, no JVD Cardiac: Regular rhythm, regular rate with no murmurs all over the precordium. Respiratory: Equal breath sounds bilaterally, no tachypnea, no wheezing ,rub or rales, Chest wall is symmetric and without deformity. Gastrointestinal: Abdomen symmetric, non-distended, soft, non-tender, normal bowel sounds x4 quadrant, normoactive, no hepatosplenomegaly Musculoskeletal: Mild pedal edema, no cyanosis Neurological: Alert oriented, cranial nerve examination intact Skin: Warm and dry Coagulation Studies Laboratory Tests Test 04/14/25 02:56 Prothrombin Time 10.7 SECONDS (9.0-12.0) INR International Normalized Ratio 1.0 INR Coagulation Comments Advance Care Planning Advanced Care plannin - 30 Minutes Assessment Assessment 70 years old male with a significant past medical history of ESRD on HD presented to the ED altered after missing his dialysis session. Plan Plan End-Stage Kidney Disease on Hemodialysis (HD) Chronic normocytic normochromic anemia secondary to above Creatinine today 5.33 Hemodialysis scheduled for tomorrow Pre and post dialysis BUN to be ordered to measure the effectiveness of dialysis Nephrology actively managing. Patricia catheter discontinued. Patient underwent hemodialysis 04/14/25, 04/15/2025, 4 L of fluid was pulled out Discontinued IV iron therapy, iron studies normalized this admission Altered Mental Status (AMS)-resolving Respiratory Acidosis with Metabolic Compensation Hypoxemic/hypercapnic encephalopathy vs Metabolic encephalopathy secondary to UTI. PH 7.28, pCO2 62.8, HC03 29.4 Patient is currently on 4 L oxygen via nasal cannula Repeat ABG tomorrow TSH, ammonia, and lactic acid levels within normal limits. Acute on Chronic Hypercapnic Respiratory Failure COPD stable, no evidence of acute exacerbation. Oxygen saturation improved with NRBM; currently on CPAP. Chest X-ray (CXR): No acute findings. Plan: Continue monitoring oxygen saturation. Maintain head elevation at 30. Albuterol nebulization as needed for wheezing. Acute on Chronic Heart Failure with Preserved Ejection Fraction (HFpEF) NT-proBNP elevated at 15,000. 2D echo (March 2025): EF 50-55%, RVSP 40 mmHg. Clinical signs suggest mild volume overload, but low blood pressures preclude diuretic use. Fluid removal via HD. Carvedilol on hold due to hypotension; to restart once BP stabilizes. Continue midodrine 10 mg p.o. daily Urinary Tract Infection (UTI) History of Multidrug resistant Klebsiella and E coli UTI in the past Sterile pyuria noted. Urinalysis: Moderate leukocyte esterase, negative nitrites, many WBCs. Leukopenia present. Continue IV ceftazidime. Past urine cultures: E. coli pansensitive. Procalcitonin slightly elevated at 0.25. Follow-up pending urine and blood cultures. Hyperphosphatemia: Continue calcium acetate. Hyperkalemia: Ongoing monitoring. Anemia (Chronic Disease): Hemoglobin stable at 8.2 Continue monitoring Iron studies normal Leukopenia & Thrombocytopenia: Monitor CBC. Chronic Pain Continue gabapentin and Percocet. Depression Continue duloxetine. Benign Prostatic Hyperplasia (BPH) Continue tamsulosin. Code Status: Full code Nutrition: Renal diet PT: Ordered Prognosis: Guarded Disposition: Nephrology will continue to follow the patient. Case discussed with Dr. Nader Zaldivar MD Internal Medicine Resident, PGY-1 Attending note: The patient is seen and examined. Needs HD again tomorrow.He was dialyzed 2 days in a row. He is more awake, now on Nasal cannula. working with PT. care plan reviewed with residents. orders for Hd placed for tomorrow. Agree with above. discussed plan with residents. Brennan Bull MD Nephrology Date of Service: April 16, 2025 Billing Provider: BRENNAN BULL MD,SHWETA, RES April 16, 2025 15:48 BRENNAN BULL MD April 16, 2025 18:36
[2025-04-16] MEDS: gabapentin 100mg capsule PO SCH (20:02)
[2025-04-16] MEDS ORDERED: glucagon, human recombinant 1mg kit SUBCUT PRN (20:50)
[2025-04-16] MEDS ORDERED: DEXTROSE 15 GM of carb/4 tabs (each vial/BOTTLE has 4 tablets) PO PRN ×2 (20:50)
[2025-04-16] MEDS ORDERED: dextrose 50%-water 50ml dispensing syringe IV PRN ×2 (20:50)
--- NOTE | 2025-04-16 20:56 | PROGRESS NOTE ---
Daily Progress Note Providers to CC ~ Antibiotic Timeout Antibiotic Ordered?: No Subjective The patient has encephalopathy is improving with BiPAP usage patient had dialysis yesterday in his followed by Nephrology Objective Vital Signs Date Time Temp Pulse Resp B/P (MAP) Pulse Ox O2 Delivery O2 Flow Rate FiO2 04/16/25 15:00 97.9 81 19 133/61 (85) 95 Nasal Cannula 6.0 04/16/25 10:37 40 Result Diagram: 04/16/2552804/16/25528 Gen. No acute distress alert and oriented 4 Lungs clear to ascultation bilaterally, no wheezes rales or rhonchi appreciated Heart irregular rhythm no murmurs rubs or clicks noted Abdomen soft nontender bowel sounds are normoactive Lower extremities no clubbing cyanosis, nor edema appreciated bilaterally Coagulation Studies Laboratory Tests Test 04/14/25 02:56 Prothrombin Time 10.7 SECONDS (9.0-12.0) INR International Normalized Ratio 1.0 INR Coagulation Comments Problem\Assessment\Plan #acute hypercapnic respiratory failure inpatient with known history of sleep apnea; has been on BiPAP all along with no necessarily much improved in his numbers; still remains a little bit encephalopathic and not at his baseline; case discussed with Pulmonary Dr. Hartman 04/16 improved continue BiPAP #end-stage renal disease on hemodialysis received hemodialysis yesterday Nephrology is following # History of sleep apnea BiPAP while asleep #Morbid obesity with a BMI of 41 Not a candidate for bariatric surgery at this juncture #Recent UTI on ceftazidime with hemodialysis #Anemia - monitor daily CBC #Paroxysmal atrial fibrillation on amiodarone # HFpEF Monitor fluid balance with dialysis On midodrine for hypotension #History of BPH on Flomax #Diabetes mellitus type 2 Fasting glucoses 68 On the hyper and hypoglycemic protocol Diabetic neuropathy on gabapentin Sepsis Screening Skin Color: Normal Date of Service: April 16, 2025 Billing Provider: CARO LIMON DO Common Visit Codes: [id number] INP/OBS CARE(HIGH) CARO LIMON DO April 16, 2025 20:56
[2025-04-16] MEDS: INSULIN LISPRO 100 UNIT/ML INSULN.PEN MULTI-DOSE SQ SCH (21:00)
[2025-04-16 21:20] LABS: HEMOGLOBIN A1C 4.6 % (4.5-6.2)
[2025-04-17] VITALS (18 sets, daily range): BP systolic 89–134; BP diastolic 45–74; PULSE 70–93; RESP 15–20; TEMP 96.6–98; O2SAT 92–98
[2025-04-17 05:48] LABS: BASOPHILS % (AUTO) 0.3 % (0-1); EOSINOPHILS # (AUTO) 0.1 X10'3 (0-0.9); EOSINOPHILS % (AUTO) 2.6 % (0-6); HEMATOCRIT 25.9 % (42.0-52.0); HEMOGLOBIN 8.2 g/dl (14.0-17.9); LYMPHOCYTES % (AUTO) 22.3 % (21-51); MEAN CORPUSCULAR HEMOGLOBIN 28.2 PG (27.0-31.0); MEAN CORPUSCULAR HGB CONC 31.7 g/dL (33.0-36.5); MEAN CORPUSCULAR VOLUME 88.9 FL (78-98); MEAN PLATELET VOLUME 6.7 FL (7.4-10.4); MONOCYTES # (AUTO) 0.6 X10'3 (0-0.9); MONOCYTES % (AUTO) 14.7 % (2-12); NEUTROPHILS # (AUTO) 2.6 X10'3 (1.8-7.7); NEUTROPHILS % (AUTO) 60.1 % (42-75); PLATELET COUNT 174 X10'3 (140-440); RED BLOOD COUNT 2.91 X10'6 (4.70-6.10); RED CELL DISTRIBUTION WIDTH 17.4 % (11.5-14.5); WHITE BLOOD COUNT 4.3 X10'3 (4.5-11.0)
[2025-04-17 06:10] LABS: ALANINE AMINOTRANSFERASE 9 U/L (12-78); ALBUMIN 2.6 G/DL (3.4-5.0); ALBUMIN/GLOBULIN RATIO 0.7 (1.1-1.5); ALKALINE PHOSPHATASE 99 IU/L (46-116); ANION GAP 8 (8-16); ASPARTATE AMINO TRANSFERASE 14 U/L (10-37); BILIRUBIN,TOTAL 0.4 MG/DL (0.1-1.0); BLOOD UREA NITROGEN 30 MG/DL (7-18); BUN/CREATININE RATIO 4.2 (10.0-20.0); CALCIUM 8.9 MG/DL (8.5-10.1); CHLORIDE 101 MMOL/L (99-107); GLUCOSE 87 MG/DL (70-104); MAGNESIUM 1.9 MG/DL (1.5-2.4); POTASSIUM 3.8 MMOL/L (3.5-5.1); SODIUM 138 MMOL/L (135-145); TOTAL CARBON DIOXIDE 29.2 MMOL/L (24-32); TOTAL PROTEIN 6.2 G/DL (6.4-8.2); eCRCL 9 ML/MIN; eGFR 8 ML/MIN
[2025-04-17] MEDS: LIDOcaine 1% (10mg/ml) 2ml vial SQ ONE (10:11)
[2025-04-17] MEDS: EPOETIN ALFA-EPBX 20,000 UNIT/ML 1 ML MDV IV ONE (10:37)
[2025-04-17] MEDS: albumin (human) 25% 100ml IV 100 ML IV PRN (10:53)
[2025-04-17] MEDS: heparin 1,000 units/ml 10ml inj IV ONE (11:40)
[2025-04-17] MEDS: heparin 1,000unit/ml 10ml vial 10 ML IV ONE (11:41)
[2025-04-17] MEDS: acetaminophen 325mg tablet PO PRN (12:10)
--- NOTE | 2025-04-17 13:50 | PROGRESS NOTE- Residence ---
Progress Note - Resident Providers to CC Resident Creating Document: GURINDER OSORIO RES CC: LUCIO BULL MD ~ Central Line/PICC still needed: No Patricia-Non Protocol Patricia Indications Met/Not Met: F/C Indications Not Met Antibiotic Timeout Antibiotic Ordered?: Yes Subjective Patient alert and oriented. No complaints. Getting dialysis today. Objective Vital Signs Date Time Temp Pulse Resp B/P (MAP) Pulse Ox O2 Delivery O2 Flow Rate FiO2 04/17/25 13:20 82 20 98/52 (67) 95 Nasal Cannula 4.0 04/17/25 11:00 97.1 04/17/25 08:43 36 Result Diagram: 04/17/25 0505 04/17/25 0505 Oriented, currently on 4 L of oxygen via nasal cannula HEENT: Atraumatic, normocephalic, EOMI, anicteric sclera ; pink conjunctiva Neck: Trachea midline. Supple, full range of motion, no JVD Cardiac: Regular rhythm, regular rate with no murmurs all over the precordium. Respiratory: Equal breath sounds bilaterally, no tachypnea, no wheezing ,rub or rales, Chest wall is symmetric and without deformity. Gastrointestinal: Abdomen symmetric, non-distended, soft, non-tender, normal bowel sounds x4 quadrant, normoactive, no hepatosplenomegaly Musculoskeletal: Mild pedal edema, no cyanosis Neurological: Alert oriented, cranial nerve examination intact Skin: Warm and dry Coagulation Studies Laboratory Tests Test 04/14/25 02:56 Prothrombin Time 10.7 SECONDS (9.0-12.0) INR International Normalized Ratio 1.0 INR Coagulation Comments Advance Care Planning Advanced Care plannin - 30 Minutes Assessment Assessment 70 years old male with a significant past medical history of ESRD on HD presented to the ED altered after missing his dialysis session. Plan Plan End-Stage Kidney Disease on Hemodialysis (HD)/TTS Chronic normocytic normochromic anemia secondary to above Patient underwent hemodialysis 04/14/25, 04/15/2025, 4 L of fluid was pulled out during the last HD Another HD today Altered Mental Status (AMS)-resolving Respiratory Acidosis with Metabolic Compensation Hypoxemic/hypercapnic encephalopathy vs Metabolic encephalopathy secondary to UTI. PH 7.28, pCO2 62.8, HC03 29.4 Patient is currently on 4 L oxygen via nasal cannula TSH, ammonia, and lactic acid levels within normal limits. Acute on Chronic Hypercapnic Respiratory Failure COPD stable, no evidence of acute exacerbation. Oxygen saturation improved with NRBM; currently on CPAP. Chest X-ray (CXR): No acute findings. Plan: Continue monitoring oxygen saturation. Maintain head elevation at 30. Albuterol nebulization as needed for wheezing. Acute on Chronic Heart Failure with Preserved Ejection Fraction (HFpEF) NT-proBNP elevated at 15,000. 2D echo (March 2025): EF 50-55%, RVSP 40 mmHg. Clinical signs suggest mild volume overload, but low blood pressures preclude diuretic use. Fluid removal via HD. Carvedilol on hold due to hypotension; to restart once BP stabilizes. Continue midodrine 10 mg p.o. daily Urinary Tract Infection (UTI) History of Multidrug resistant Klebsiella and E coli UTI in the past Sterile pyuria noted. Urinalysis: Moderate leukocyte esterase, negative nitrites, many WBCs. Leukopenia present. Continue IV ceftazidime. Past urine cultures: E. coli pansensitive. Procalcitonin slightly elevated at 0.25. Follow-up pending urine and blood cultures. Hyperphosphatemia: Continue calcium acetate. Hyperkalemia: Ongoing monitoring. Anemia (Chronic Disease): Hemoglobin stable at 8.2 Continue monitoring Iron studies normal Leukopenia & Thrombocytopenia: Monitor CBC. Chronic Pain Continue gabapentin and Percocet. Depression Continue duloxetine. Benign Prostatic Hyperplasia (BPH) Continue tamsulosin. Code Status: Full code Nutrition: Renal diet PT: Ordered Prognosis: Guarded Disposition: Nephrology will continue to follow the patient. Case discussed with Dr. Nader Osorio MD IM resident Attending note: The patinet is doing much better clinically. no complaints. undergoing dialysis and will aim for 4 liters again to be taken off as tolerated. need to keep pushing dwn the dry weight as an outpatient. care plan reviewed with resident and agree with above. Lucio Bull MD Nephrology Date of Service: April 17, 2025 Billing Provider: LUCIO BULL MD, HARIVARSHA, RES April 17, 2025 13:50 LUCIO BULL MD April 17, 2025 17:06
--- NOTE | 2025-04-17 22:13 | PROGRESS NOTE ---
Daily Progress Note Providers to CC ~ Antibiotic Timeout Antibiotic Ordered?: Yes Subjective The patient was more oriented today he knows his name place month and year- he was hoping to be discharged however informed him that is since he has had three hospitalizations now this month I would likely not discharge him for another three days. Patient did inform me that he missed a dialysis appointment and that his is making a commitment that the patient will not miss. dialysis appointment going forward Objective Vital Signs Date Time Temp Pulse Resp B/P (MAP) Pulse Ox O2 Delivery O2 Flow Rate FiO2 04/17/25 15:00 97.7 80 16 96/57 (70) 96 Nasal Cannula 4.0 04/17/25 08:43 36 Result Diagram: 04/17/25 0505 04/17/25 0505 Gen. No acute distress alert and oriented to person place month and year Lungs clear to ascultation bilaterally, no wheezes rales or rhonchi appreciated Heart irregular rhythm no murmurs rubs or clicks noted Abdomen soft nontender bowel sounds are normoactive Lower extremities no clubbing cyanosis, nor edema appreciated bilaterally Coagulation Studies Laboratory Tests Test 04/14/25 02:56 Prothrombin Time 10.7 SECONDS (9.0-12.0) INR International Normalized Ratio 1.0 INR Coagulation Comments Problem\Assessment\Plan #acute hypercapnic respiratory failure inpatient with known history of sleep apnea; has been on BiPAP all along with no necessarily much improved in his numbers; still remains a little bit encephalopathic and not at his baseline; case discussed with Pulmonary Dr. Hartman 04/16 improved continue BiPAP #end-stage renal disease on hemodialysis Nephrology is following 04/17 patient received dialysis today # History of sleep apnea BiPAP while asleep #Morbid obesity with a BMI of 41 Not a candidate for bariatric surgery at this juncture #Recent UTI on ceftazidime with hemodialysis #Anemia - monitor daily CBC #Paroxysmal atrial fibrillation on amiodarone # HFpEF Monitor fluid balance with dialysis On midodrine for hypotension #History of BPH on Flomax #Diabetes mellitus type 2 Fasting glucoses 68 04/17 blood sugar under good control today On the hyper and hypoglycemic protocol Diabetic neuropathy on gabapentin Sepsis Screening Skin Color: Normal Date of Service: April 17, 2025 Billing Provider: CARO LIMON DO Common Visit Codes: [id number] INP/OBS CARE(HIGH) CARO LIMON DO April 17, 2025:13
[2025-04-18] VITALS (8 sets, daily range): BP systolic 120–137; BP diastolic 57–71; PULSE 70–82; RESP 15–18; TEMP 96.9–98; O2SAT 95–99
[2025-04-18 07:40] LABS: BASOPHILS % (AUTO) 0.4 % (0-1); EOSINOPHILS # (AUTO) 0.2 X10'3 (0-0.9); EOSINOPHILS % (AUTO) 3.3 % (0-6); HEMOGLOBIN 9.2 g/dl (14.0-17.9); LYMPHOCYTES # (AUTO) 1.1 X10'3 (1.1-4.8); LYMPHOCYTES % (AUTO) 21.8 % (21-51); MEAN CORPUSCULAR HEMOGLOBIN 28.1 PG (27.0-31.0); MEAN CORPUSCULAR HGB CONC 31.6 g/dL (33.0-36.5); MEAN CORPUSCULAR VOLUME 88.9 FL (78-98); MEAN PLATELET VOLUME 6.8 FL (7.4-10.4); MONOCYTES # (AUTO) 0.8 X10'3 (0-0.9); MONOCYTES % (AUTO) 16.1 % (2-12); NEUTROPHILS % (AUTO) 58.4 % (42-75); PLATELET COUNT 208 X10'3 (140-440); RED BLOOD COUNT 3.26 X10'6 (4.70-6.10); RED CELL DISTRIBUTION WIDTH 17.2 % (11.5-14.5); WHITE BLOOD COUNT 5.2 X10'3 (4.5-11.0)
[2025-04-18 08:14] LABS: ALANINE AMINOTRANSFERASE 10 U/L (12-78); ALBUMIN/GLOBULIN RATIO 0.8 (1.1-1.5); ALKALINE PHOSPHATASE 98 IU/L (46-116); ANION GAP 10 (8-16); ASPARTATE AMINO TRANSFERASE 12 U/L (10-37); BILIRUBIN,TOTAL 0.4 MG/DL (0.1-1.0); BLOOD UREA NITROGEN 16 MG/DL (7-18); CALCIUM 9.1 MG/DL (8.5-10.1); CHLORIDE 99 MMOL/L (99-107); CREATININE 5.26 MG/DL (0.60-1.10); GLUCOSE 92 MG/DL (70-104); MAGNESIUM 1.9 MG/DL (1.5-2.4); PHOSPHORUS 1.7 MG/DL (2.3-4.5); POTASSIUM 4.1 MMOL/L (3.5-5.1); SODIUM 138 MMOL/L (135-145); TOTAL CARBON DIOXIDE 29.1 MMOL/L (24-32); TOTAL PROTEIN 6.7 G/DL (6.4-8.2); eCRCL 12 ML/MIN; eGFR 11 ML/MIN
[2025-04-18 08:19] LABS: PLATELET ESTIMATE NORMAL
[2025-04-18 08:20] LABS: ANISOCYTOSIS 1+; POIKILOCYTOSIS 1+
[2025-04-18] MEDS: potassium phosphate inj 15 MMOL in normal saline 250ml IV soln 250 ML IV ONE (11:31)
--- NOTE | 2025-04-18 15:52 | PROGRESS NOTE ---
Progress Note Dictate Providers to CC ~ Central Line/PICC still needed: No Patricia Indications Met/Not Met: F/C Indications Not Met Antibiotic Ordered?: N/A Subjective Subjective more awake. needs HD again tomorrow to keep him on the tTS once he gets discharged from here. He is much more conversant and oriented now. Objective Vitals Vital Signs Date Time Temp Pulse Resp B/P (MAP) Pulse Ox O2 Delivery O2 Flow Rate FiO2 04/18/25 14:00 18 04/18/25 08:00 96 Nasal Cannula 4.0 04/18/25 06:30 73 04/18/25 02:00 97.1 129/69 (89) 04/17/25 08:43 36 Lab Results: 04/18/25 0621 04/18/25 0620 Objective Vital Signs: As above General: obese body habitus, no acute distress. Skin: No rashes, lumps, ulcers, blisters, purpura or petechiae HEENT: Anicteric sclera, ALEXANDER Neck: Supple and nontender without enlargement of the thyroid, or lymphadenopathy. Chest: Normal size and shape, no tenderness, CTA bilaterally Heart: Regular. No jugular venous distention, S1 and S2 heard , no gallop Abdomen: Soft and non tender no organomegaly,BS+ Extremities: No pedal edema Neuro: Nonfocal. Coagulation Studies Laboratory Tests Test 04/14/25 02:56 Prothrombin Time 10.7 SECONDS (9.0-12.0) INR International Normalized Ratio 1.0 INR Coagulation Comments Advance Care Planning Advanced Care plannin - 30 Minutes Problem\Assessment\Plan Problems/Diagnosis: (1) ESRD (end stage renal disease) Assessment & Plan: HD done yesterday. excellent ultrafiltration. will do it again tomorrow. (2) Encephalopathy acute Assessment & Plan: much better (3) Acute respiratory failure Assessment & Plan: resolved. Sepsis Screening Skin Color: Normal LUCIO BULL MD April 18, 2025 15:52
[2025-04-18] MEDS: mag hydrox/Alum hydrox/simeth 30ml oral suspension PO PRN (19:20)
--- NOTE | 2025-04-18 21:22 | PROGRESS NOTE ---
Daily Progress Note Providers to CC ~ Antibiotic Timeout Antibiotic Ordered?: Yes Subjective The patient is more talkative today and is likely at his cognitive baseline- anticipate the patient will be able to go home tomorrow post dialysis unless this is significant change in the patient's condition Objective Vital Signs Date Time Temp Pulse Resp B/P (MAP) Pulse Ox O2 Delivery O2 Flow Rate FiO2 04/18/25 18:30 78 04/18/25 15:00 98.0 15 135/71 (92) 95 Nasal Cannula 4.0 04/17/25 08:43 36 Result Diagram: 04/18/2562004/18/25619 Gen. No acute distress alert and oriented to person place month and year Lungs clear to ascultation bilaterally, no wheezes rales or rhonchi appreciated Heart irregular rhythm no murmurs rubs or clicks noted Abdomen soft nontender bowel sounds are normoactive Lower extremities no clubbing cyanosis, nor edema appreciated bilaterally Coagulation Studies Laboratory Tests Test 04/14/25 02:56 Prothrombin Time 10.7 SECONDS (9.0-12.0) INR International Normalized Ratio 1.0 INR Coagulation Comments Problem\Assessment\Plan #acute hypercapnic respiratory failure inpatient with known history of sleep apnea; has been on BiPAP all along with no necessarily much improved in his numbers; still remains a little bit encephalopathic and not at his baseline; case discussed with Pulmonary Dr. Hartman 04/16 improved continue BiPAP #end-stage renal disease on hemodialysis Nephrology is following 04/17 patient received dialysis today 04/18 # History of sleep apnea BiPAP while asleep #Morbid obesity with a BMI of 41 Not a candidate for bariatric surgery at this juncture #Recent UTI on ceftazidime with hemodialysis #Anemia - monitor daily CBC #Paroxysmal atrial fibrillation on amiodarone # HFpEF Monitor fluid balance with dialysis On midodrine for hypotension #History of BPH on Flomax #Diabetes mellitus type 2 Fasting glucoses 68 04/17 blood sugar under good control today On the hyper and hypoglycemic protocol Diabetic neuropathy on gabapentin # hypophosphatemia PhosLo was held today IV phosphorus 15 mEq was administered Disposition: Anticipate discharge in the a.m. after dialysis. Sepsis Screening Skin Color: Normal Date of Service: April 18, 2025 Billing Provider: CARO LIMON DO Common Visit Codes: [id number] INP/OBS CARE(HIGH) CARO LIMON DO April 18, 2025 21:22
[2025-04-19] VITALS (8 sets, daily range): BP systolic 119–135; BP diastolic 67–73; PULSE 62–85; RESP 15–18; TEMP 96.2–98.6; O2SAT 93–96
[2025-04-19 06:53] LABS: ALANINE AMINOTRANSFERASE 8 U/L (12-78); ALBUMIN 2.7 G/DL (3.4-5.0); ALBUMIN/GLOBULIN RATIO 0.7 (1.1-1.5); ALKALINE PHOSPHATASE 94 IU/L (46-116); ANION GAP 7 (8-16); ASPARTATE AMINO TRANSFERASE 6 U/L (10-37); BILIRUBIN,TOTAL 0.4 MG/DL (0.1-1.0); BLOOD UREA NITROGEN 24 MG/DL (7-18); BUN/CREATININE RATIO 3.5 (10.0-20.0); CALCIUM 8.9 MG/DL (8.5-10.1); CHLORIDE 99 MMOL/L (99-107); CREATININE 6.84 MG/DL (0.60-1.10); GLUCOSE 84 MG/DL (70-104); MAGNESIUM 1.9 MG/DL (1.5-2.4); POTASSIUM 4.3 MMOL/L (3.5-5.1); SODIUM 135 MMOL/L (135-145); TOTAL CARBON DIOXIDE 28.8 MMOL/L (24-32); TOTAL PROTEIN 6.8 G/DL (6.4-8.2); eCRCL 9 ML/MIN; eGFR 8 ML/MIN
[2025-04-19] MEDS ORDERED: albumin (human) 25% 100ml IV 100 ML IV PRN (07:15)
[2025-04-19 08:51] LABS: BASOPHILS % (AUTO) 0.8 % (0-1); EOSINOPHILS # (AUTO) 0.2 X10'3 (0-0.9); EOSINOPHILS % (AUTO) 4.5 % (0-6); HEMATOCRIT 24.7 % (42.0-52.0); HEMOGLOBIN 7.7 g/dl (14.0-17.9); LYMPHOCYTES # (AUTO) 0.8 X10'3 (1.1-4.8); LYMPHOCYTES % (AUTO) 19.7 % (21-51); MEAN CORPUSCULAR HEMOGLOBIN 27.9 PG (27.0-31.0); MEAN CORPUSCULAR HGB CONC 31.1 g/dL (33.0-36.5); MEAN CORPUSCULAR VOLUME 89.8 FL (78-98); MEAN PLATELET VOLUME 6.9 FL (7.4-10.4); MONOCYTES # (AUTO) 0.6 X10'3 (0-0.9); MONOCYTES % (AUTO) 14.5 % (2-12); NEUTROPHILS # (AUTO) 2.4 X10'3 (1.8-7.7); NEUTROPHILS % (AUTO) 60.5 % (42-75); PLATELET COUNT 183 X10'3 (140-440); RED BLOOD COUNT 2.75 X10'6 (4.70-6.10); RED CELL DISTRIBUTION WIDTH 18.1 % (11.5-14.5)
--- NOTE | 2025-04-19 11:13 | PROGRESS NOTE ---
Progress Note Dictate Providers to CC ~ Central Line/PICC still needed: No Patricia Indications Met/Not Met: F/C Indications Not Met Antibiotic Ordered?: N/A Subjective Subjective more alert. He is going home today. need to arrange additional treatment in [facility] tomorrow to put him back on schedule on Sunday. He has not been dialyzed since Sunday. Objective Vitals Vital Signs Date Time Temp Pulse Resp B/P (MAP) Pulse Ox O2 Delivery O2 Flow Rate FiO2 04/19/25 08:39 17 04/19/25 08:00 96 Nasal Cannula 4.0 04/19/25 06:00 75 04/19/25 06:00 98.6 120/67 (84) 04/17/25 08:43 36 Lab Results: 04/19/25 0744 04/19/25 0547 Objective Vital Signs: As above General: obese body habitus, no acute distress. Skin: No rashes, lumps, ulcers, blisters, purpura or petechiae HEENT: Anicteric sclera, ALEXANDER Neck: Supple and nontender without enlargement of the thyroid, or lymphadenopathy. Chest: Normal size and shape, no tenderness, CTA bilaterally Heart: Regular. No jugular venous distention, S1 and S2 heard , no gallop Abdomen: Soft and non tender no organomegaly,BS+ Extremities: No pedal edema Neuro: Nonfocal. Coagulation Studies Laboratory Tests Test 04/14/25 02:56 Prothrombin Time 10.7 SECONDS (9.0-12.0) INR International Normalized Ratio 1.0 INR Coagulation Comments Advance Care Planning Advanced Care plannin - 30 Minutes Problem\Assessment\Plan Problems/Diagnosis: (1) ESRD (end stage renal disease) Assessment & Plan: HD done Sunday. excellent ultrafiltration. will do it again tomorrow in the outpatient setting. (2) Encephalopathy acute Assessment & Plan: much better (3) Acute respiratory failure Assessment & Plan: resolved. Sepsis Screening Skin Color: Normal LUCIO BULL MD April 19, 2025 11:13
[2025-04-19] MEDS: NUT.TX.IMP.RENAL FXN,LAC-REDUC (Nepro) 237 ML VANILLA PO SCH (18:00)
--- NOTE | 2025-04-19 21:05 | PROGRESS NOTE ---
Daily Progress Note Providers to CC ~ Antibiotic Timeout Antibiotic Ordered?: Yes Subjective The patient was to be discharged today however Dr. Amador newspaper copy editor informed me that the patient will have to be dialyzed tomorrow and thus will be discharged after dialysis tomorrow morning Objective Vital Signs Date Time Temp Pulse Resp B/P (MAP) Pulse Ox O2 Delivery O2 Flow Rate FiO2 04/19/25 18:30 81 04/19/25 17:40 17 04/19/25 15:00 98.0 119/70 (86) 94 Nasal Cannula 4.0 04/17/25 08:43 36 Result Diagram: 04/19/25 0744 04/19/25 0547 Gen. No acute distress alert and oriented to person place month and year Lungs clear to ascultation bilaterally, no wheezes rales or rhonchi appreciated Heart irregular rhythm no murmurs rubs or clicks noted Abdomen soft nontender bowel sounds are normoactive Lower extremities no clubbing cyanosis, nor edema appreciated bilaterally Coagulation Studies Laboratory Tests Test 04/14/25 02:56 Prothrombin Time 10.7 SECONDS (9.0-12.0) INR International Normalized Ratio 1.0 INR Coagulation Comments Problem\Assessment\Plan #acute hypercapnic respiratory failure inpatient with known history of sleep apnea; has been on BiPAP all along with no necessarily much improved in his numbers; still remains a little bit encephalopathic and not at his baseline; case discussed with Pulmonary Dr. Hartman 04/16 improved continue BiPAP #end-stage renal disease on hemodialysis Nephrology is following 04/17 patient received dialysis today 04/18 # History of sleep apnea BiPAP while asleep #Morbid obesity with a BMI of 41 Not a candidate for bariatric surgery at this juncture #Recent UTI on ceftazidime with hemodialysis #Anemia - monitor daily CBC #Paroxysmal atrial fibrillation on amiodarone # HFpEF Monitor fluid balance with dialysis On midodrine for hypotension #History of BPH on Flomax #Diabetes mellitus type 2 Fasting glucoses 68 04/17 blood sugar under good control today On the hyper and hypoglycemic protocol Diabetic neuropathy on gabapentin # hypophosphatemia PhosLo was held today IV phosphorus 15 mEq was administered 04/19 normalized Disposition: Anticipate discharge in the a.m. after dialysis. Sepsis Screening Skin Color: Normal Date of Service: April 19, 2025 Billing Provider: ROBACK,CARO T DO Common Visit Codes: [id number] INP/OBS CARE(HIGH) CARO LIMON DO April 19, 2025 21:05
[2025-04-20] VITALS (10 sets, daily range): BP systolic 101–140; BP diastolic 58–73; PULSE 65–89; RESP 16–22; TEMP 97.6–98.2; O2SAT 94–96
[2025-04-20] MEDS: LIDOcaine 1% (10mg/ml) 2ml vial SQ ONE (06:18)
[2025-04-20 06:32] LABS: BASOPHILS % (AUTO) 0.5 % (0-1); EOSINOPHILS # (AUTO) 0.2 X10'3 (0-0.9); EOSINOPHILS % (AUTO) 5.5 % (0-6); HEMATOCRIT 26.4 % (42.0-52.0); HEMOGLOBIN 8.4 g/dl (14.0-17.9); LYMPHOCYTES # (AUTO) 0.7 X10'3 (1.1-4.8); LYMPHOCYTES % (AUTO) 20.4 % (21-51); MEAN CORPUSCULAR HEMOGLOBIN 28.1 PG (27.0-31.0); MEAN CORPUSCULAR HGB CONC 31.7 g/dL (33.0-36.5); MEAN CORPUSCULAR VOLUME 88.6 FL (78-98); MEAN PLATELET VOLUME 6.5 FL (7.4-10.4); MONOCYTES # (AUTO) 0.5 X10'3 (0-0.9); MONOCYTES % (AUTO) 13.8 % (2-12); NEUTROPHILS # (AUTO) 2.2 X10'3 (1.8-7.7); NEUTROPHILS % (AUTO) 59.8 % (42-75); PLATELET COUNT 173 X10'3 (140-440); RED BLOOD COUNT 2.99 X10'6 (4.70-6.10); RED CELL DISTRIBUTION WIDTH 18.1 % (11.5-14.5); WHITE BLOOD COUNT 3.7 X10'3 (4.5-11.0)
[2025-04-20 07:16] LABS: ALANINE AMINOTRANSFERASE 7 U/L (12-78); ALBUMIN 2.6 G/DL (3.4-5.0); ALBUMIN/GLOBULIN RATIO 0.7 (1.1-1.5); ALKALINE PHOSPHATASE 92 IU/L (46-116); ANION GAP 11 (8-16); ASPARTATE AMINO TRANSFERASE 8 U/L (10-37); BILIRUBIN,TOTAL 0.4 MG/DL (0.1-1.0); BLOOD UREA NITROGEN 36 MG/DL (7-18); BUN/CREATININE RATIO 5.1 (10.0-20.0); CALCIUM 8.6 MG/DL (8.5-10.1); CHLORIDE 96 MMOL/L (99-107); GLUCOSE 92 MG/DL (70-104); PHOSPHORUS 3.3 MG/DL (2.3-4.5); POTASSIUM 4.3 MMOL/L (3.5-5.1); SODIUM 132 MMOL/L (135-145); TOTAL CARBON DIOXIDE 24.9 MMOL/L (24-32); TOTAL PROTEIN 6.1 G/DL (6.4-8.2); eCRCL 9 ML/MIN; eGFR 8 ML/MIN
[2025-04-20] MEDS: EPOETIN ALFA-EPBX 20,000 UNIT/ML 1 ML MDV IV ONE (07:37)
[2025-04-20] MEDS: heparin 1,000 units/ml 10ml inj IV ONE (08:23)
[2025-04-20] MEDS: heparin 1,000unit/ml 10ml vial 10 ML IV ONE (08:24)
--- NOTE | 2025-04-20 15:16 | PROGRESS NOTE ---
Progress Note Dictate Providers to CC ~ Antibiotic Ordered?: N/A Subjective Subjective Doing well today, receiving dialysis at the time of the evaluation, he is usually a Sunday dialysis, he has been asked to go to his usual dialysis tomorrow Objective Vitals Vital Signs Date Time Temp Pulse Resp B/P (MAP) Pulse Ox O2 Delivery O2 Flow Rate FiO2 04/20/25 08:55 98.0 89 20 104/62 (76) 96 Nasal Cannula 4.0 04/17/25 08:43 36 General: Well appearing, well nourished, in no distress. Oriented x 2 Neck: Supple, without JVD Heart: Regular rate and rhythm, no murmur Lungs: Clear to auscultation and percussion Abdomen: Bowel sounds normal, no tenderness, organomegaly, masses, or hernia Extremities: No cyanosis, no edema, peripheral pulses intact Neurologic: Sensation to touch, normal. DTRs normal moves all extremities spontaneously. Lab Results: 04/20/25 0615 04/20/25 0615 Coagulation Studies Laboratory Tests Test 04/14/25 02:56 Prothrombin Time 10.7 SECONDS (9.0-12.0) INR International Normalized Ratio 1.0 INR Coagulation Comments Other Results I & O 04/20/25 07:00 Intake Total 1255 ml Output Total 0 ml Balance 1255 ml Intake Oral 1150 ml IV Total 105 ml Output Urine Total 0 ml Problem\Assessment\Plan Problems/Diagnosis: (1) ESRD (end stage renal disease) Assessment & Plan: HD done Sunday, And Sunday, additional dialysis scheduled for today resume his previous dialysis schedule as an outpatient (2) Encephalopathy acute Assessment & Plan: Much improved, back to his baseline level of function, follow-up with primary care provider for routine evaluation and maintenance (3) Acute respiratory failure Assessment & Plan: Resolved Sepsis Screening Skin Color: Normal WALL,ALLEN M III DO April 20, 2025 15:16
--- NOTE | 2025-04-20 20:38 | DISCHARGE SUMMARY ---
Discharge Summary Providers to CC ~ Discharge Summary Admission Diagnosis: ESRD, ALOC, UTI Hospital Course DATE OF ADMISSION: 04/14/2025 DATE OF DISCHARGE: 04/20/2025 Discharge Diagnosis\\Comment: Acute hypercapnic respiratory failure with underlining chronic respiratory failure, metabolic encephalopathy, history sleep apnea, morbid obesity, anemia, paroxysmal atrial fibrillation, BPH, type 2 diabetes mellitus, hypophosphatemia Operations\\Procedures: Heme dialysis Consultants: Dr. Amador glass finisher, Dr. Perez glass finisher Complications: None Condition on DC: Stable Continued Medications: Amiodarone HCl (Amiodarone HCl) 200 Mg Tablet 1 TAB PO BID, TAB 0 Refills Aspirin (Aspirin) 325 Mg Tablet 1 TAB PO DAILY, TAB Calcium Acetate (Calcium Acetate) 667 Mg Capsule 2 CAP PO TID Carvedilol* (Coreg*) 12.5 Mg Tablet 0.5 TABLET PO BID, TABLET Diazepam (Diazepam) 5 Mg Tablet 5 MG PO DAILY PRN for anxiety for 30 Days, #60 TAB 0 Refills Duloxetine HCl (Duloxetine HCl) 60 Mg Capsule.dr 60 MG PO DAILY for 30 Days, #30 CAP Ferrous Sulfate (Ferrous Sulfate) 325 Mg (65 Mg Iron) Tablet 325 MG PO DAILY for 30 Days, #30 TAB Fluticasone Propionate (Fluticasone Propionate) 50 Mcg/Actuation [place].susp 2 SPRAYS BOTHNARES DAILY, #16 GM 0 Refills Fluticasone/Umeclidin/Vilanter (Trelegy Ellipta 100-62.5-25) 100-62.5 Blst.w.dev 1 PUFFS INH QAM Folic Acid/Vitamin B Comp W-C (Dialyvite Tablet) Unknown Strength Tablet 1 TAB PO DAILY for 30 Days, #30 TAB 0 Refills Gabapentin (Gabapentin) 600 Mg Tablet 0.5 TAB PO HS for 30 Days, #90 TAB 0 Refills Midodrine Hcl (Midodrine Hcl) 10 Mg Tablet 1 TAB PO DAILY, TAB 0 Refills Modafinil (Modafinil) 200 Mg Tablet 1 TAB PO DAILY PRN for ED Multivitamin (Multi Vitamin Daily) 1 Each Tablet 1 TAB PO DAILY for 30 Days, #30 TAB 0 Refills [place]-3/Dha/Epa/Fish Oil (Fish Oil 1,000 Mg Ec Softgel) 300 Mg-1,000 Mg Capsule.dr 1 CAP PO Q12H for 30 Days, #60 CAP 0 Refills Omeprazole (Prilosec) 40 Mg Capsule 2 CAP PO BID, CAP Oxycodone HCl/Acetaminophen (Percocet 10-325 mg Tablet) 10 Mg-325 Mg Tablet 1 TAB PO Q8H PRN for pain MDD 6 Tablet(s), TAB Tamsulosin Hcl* (Flomax*) 0.4 Mg Cap.sr.24h 1 CAP PO DAILY for 30 Days, #30 CAP Discharge Summary: The patient was admitted by resident physician TEN Schaefer under the supervision of YEISON Carrera MD with the following HPI:"The patient is a 70-year-old male with past medical history of recurrent MDRO Klebsiella UTI, ESRD on HD, HTN, BPH, AFib, with a history of multiple hospital admissions, was brought to the ED with altered level of consciousness. The family is not at bedside. As per the records, the patient missed his last dialysis appointment on Sunday and is scheduled for another one tomorrow. On arrival, the patient was found to be fluid overloaded and also in respiratory acidosis, improved with BiPAP, UTI. Patient admitted for hemodialysis tomorrow and treatment of UTI. The patient received IV ceftriaxone in the ER." The patient has hypercapnic hypoxic respiratory failure resolved with the use of BiPAP the patient is up sleep apnea and uses BiPAP at home the patient does have underlining chronic respiratory failure as well as on 4 L oxygen. The patient has encephalopathy however resolved with dialysis treatment the patient missed a dialysis treatment and thus this is the likely cause of the patient's encephalopathy was uremia from the missed dialysis treatment. The patient has paroxysmal atrial fibrillation and remains on amiodarone. The patient has chronic anemia however did not require blood transfusion his hemoglobin was 7.0 on admission and then stabilized and was anywhere from high seven to a low nine. Gen. No acute distress alert and oriented to person place month and year Lungs clear to ascultation bilaterally, no wheezes rales or rhonchi appreciated Heart irregular rhythm no murmurs rubs or clicks noted Abdomen soft nontender bowel sounds are normoactive Lower extremities no clubbing cyanosis, nor edema appreciated bilaterally The patient felt ready to be discharged and was medically cleared to be discharged on 04/20/2025 The patient was seen and evaluated on day of discharge. Time spent on discharge 40 minutes *Problems/Diagnosis: (1) Encephalopathy acute Status: Resolved Total Time Spent on D/C: > 30 Minutes Date of Service: April 20, 2025 Billing Provider: CARO LIMON DO Common Visit Codes: 03997-VEU/OBS DISCH DAY >30min CARO LIMON DO April 20, 2025 20:38
== END 2025-04-20 12:00 | disposition home health service (06) | DRG 689 ==
LOC: ER 19:07 → ED HOLD 04-14 01:57 → PCU 3S 04-14 04:18
PROVIDERS: ADMIT Internal Medicine Critical Care Medicine; ATTEND Internal Medicine
PROC: 5A09357 Assistance with Respiratory Ventilation, Less than 24 Consecutive Hours, Continuous Positive Airway Pressure (ICD-10-PCS; 2025-04-13)
PROC: 5A1D70Z Performance of Urinary Filtration, Intermittent, Less than 6 Hours Per Day (ICD-10-PCS; principal; 2025-04-14)
PROC: 5A09357 Assistance with Respiratory Ventilation, Less than 24 Consecutive Hours, Continuous Positive Airway Pressure (ICD-10-PCS; 2025-04-14)
PROC: 5A1D70Z Performance of Urinary Filtration, Intermittent, Less than 6 Hours Per Day (ICD-10-PCS; 2025-04-15)
PROC: 5A09357 Assistance with Respiratory Ventilation, Less than 24 Consecutive Hours, Continuous Positive Airway Pressure (ICD-10-PCS; 2025-04-15)
PROC: 5A09357 Assistance with Respiratory Ventilation, Less than 24 Consecutive Hours, Continuous Positive Airway Pressure (ICD-10-PCS; 2025-04-16)
PROC: 5A1D70Z Performance of Urinary Filtration, Intermittent, Less than 6 Hours Per Day (ICD-10-PCS; 2025-04-17)
PROC: 5A09357 Assistance with Respiratory Ventilation, Less than 24 Consecutive Hours, Continuous Positive Airway Pressure (ICD-10-PCS; 2025-04-17)
PROC: 5A09357 Assistance with Respiratory Ventilation, Less than 24 Consecutive Hours, Continuous Positive Airway Pressure (ICD-10-PCS; 2025-04-19)
PROC: 5A1D70Z Performance of Urinary Filtration, Intermittent, Less than 6 Hours Per Day (ICD-10-PCS; 2025-04-20)
PROC: 5A09357 Assistance with Respiratory Ventilation, Less than 24 Consecutive Hours, Continuous Positive Airway Pressure (ICD-10-PCS; 2025-04-20)
DX: N39.0 Urinary tract infection, site not specified (principal); G93.41 Metabolic encephalopathy; J96.21 Acute and chronic respiratory failure with hypoxia; N18.6 End stage renal disease; J96.22 Acute and chronic respiratory failure with hypercapnia; I50.33 Acute on chronic diastolic (congestive) heart failure; E87.29 Other acidosis; I13.2 Hypertensive heart and chronic kidney disease with heart failure and with stage 5 chronic kidney disease, or end stage renal disease; Z16.24 Resistance to multiple antibiotics; Z68.41 Body mass index [BMI] 40.0-44.9, adult; E11.22 Type 2 diabetes mellitus with diabetic chronic kidney disease; I48.0 Paroxysmal atrial fibrillation; J44.9 Chronic obstructive pulmonary disease, unspecified; B96.1 Klebsiella pneumoniae [K. pneumoniae] as the cause of diseases classified elsewhere; E11.40 Type 2 diabetes mellitus with diabetic neuropathy, unspecified; E87.5 Hyperkalemia; N40.0 Benign prostatic hyperplasia without lower urinary tract symptoms; E83.39 Other disorders of phosphorus metabolism; D63.8 Anemia in other chronic diseases classified elsewhere; D69.6 Thrombocytopenia, unspecified; F31.9 Bipolar disorder, unspecified; E66.01 Morbid (severe) obesity due to excess calories; G47.30 Sleep apnea, unspecified; G89.29 Other chronic pain; K21.9 Gastro-esophageal reflux disease without esophagitis; Z91.158 Patient's noncompliance with renal dialysis for other reason; Z80.3 Family history of malignant neoplasm of breast; Z88.8 Allergy status to other drugs, medicaments and biological substances; Z87.442 Personal history of urinary calculi; Z91.030 Bee allergy status; Z90.49 Acquired absence of other specified parts of digestive tract; Z82.3 Family history of stroke; Z99.2 Dependence on renal dialysis
CPT/HCPCS: 36415; 36600; 71045; 80053; 80061; 80305; 81001; 81003; 82140; 82728; 82803; 82948; 83036; 83540; 83550; 83605; 83690; 83735; 83880; 84100; 84145; 84443; 84484; 85008; 85018; 85025; 85027; 85610; 87040; 87081; 87088; 92508; 92616; 93005; 94660; 94760; 97161; 97530; 99291; 99292; A4314; A4615; A6213; A6449; A6590; A7526; E1594; G0257; G0378; J0696; J0713; J1644; J1756; J1815; J2003; J3490; J7030; J7040; J7050; P9047; Q4081

== ENCOUNTER 2025-05-12 10:08 | Inpatient (IN) | payer BC, MEDICARE ==
[2025-05-12] VITALS (17 sets, daily range): BP systolic 87–119; BP diastolic 32–58; PULSE 59–72; RESP 14–22; TEMP 97–97.9; O2SAT 89–100
[~2025-05-12] VITALS: Ht 172.7 cm; Wt 118.2 kg
[~2025-05-12 10:08] MED LIST changes: +FLUT16SP BOTHNARES
[2025-05-12 10:52] LABS: BASOPHILS % (AUTO) 0.5 % (0-1); EOSINOPHILS # (AUTO) 0.2 X10'3 (0-0.9); EOSINOPHILS % (AUTO) 4.4 % (0-6); HEMATOCRIT 24.4 % (42.0-52.0); HEMOGLOBIN 7.7 g/dl (14.0-17.9); LYMPHOCYTES # (AUTO) 0.8 X10'3 (1.1-4.8); LYMPHOCYTES % (AUTO) 16.3 % (21-51); MEAN CORPUSCULAR HEMOGLOBIN 27.1 PG (27.0-31.0); MEAN CORPUSCULAR HGB CONC 31.3 g/dL (33.0-36.5); MEAN CORPUSCULAR VOLUME 86.6 FL (78-98); MEAN PLATELET VOLUME 6.1 FL (7.4-10.4); MONOCYTES # (AUTO) 0.5 X10'3 (0-0.9); MONOCYTES % (AUTO) 11.2 % (2-12); NEUTROPHILS # (AUTO) 3.2 X10'3 (1.8-7.7); NEUTROPHILS % (AUTO) 67.6 % (42-75); PLATELET COUNT 237 X10'3 (140-440); RED BLOOD COUNT 2.82 X10'6 (4.70-6.10); RED CELL DISTRIBUTION WIDTH 17.5 % (11.5-14.5); WHITE BLOOD COUNT 4.8 X10'3 (4.5-11.0)
[2025-05-12 11:03] LABS: ALBUMIN 2.3 G/DL (3.4-5.0); ANION GAP 11 (8-16); BLOOD UREA NITROGEN 57 MG/DL (7-18); BUN/CREATININE RATIO 6.9 (10.0-20.0); CALCIUM 8.8 MG/DL (8.5-10.1); CHLORIDE 98 MMOL/L (99-107); GLUCOSE 87 MG/DL (70-104); POTASSIUM 4.7 MMOL/L (3.5-5.1); SODIUM 139 MMOL/L (135-145); TOTAL CARBON DIOXIDE 29.8 MMOL/L (24-32); eCRCL 8 ML/MIN; eGFR 6 ML/MIN
--- NOTE | 2025-05-12 11:11 | Physician Documentation ---
History of Present Illness ~ Chief Complaint: Urinary Symptoms Stated Complaint: "HE MAYBE GETTING AN INFECTION" Time Seen by MD: 10:45 Primary Medical Doctor: Inez Holguin MD Source: patient, family Mode of Arrival: POV HPI 70-year-old male (Mr. Murray, other significant partner bedside) with past medical history of ESRD on maintenance hemodialysis(Sunday, , Sunday cycle, at [facility]), COPD, CHF, right charcots joint disease, AFib pres ented to the ER with the Concerns for bladder infection. He reports multiple bladder infections for quite a long time. Endorses generalized weakness, decreased energy levels for the past few days . He reports involuntary movements of all four limbs whenever he is going to get the UTI , as a precursor. He endorses that Dr. Doe recommended for urinalysis but he could not able to get the report. Urine analysis at [facility] showed cloudy, foul smelling and it could be contaminant(per patient & his partner). Complained of swelling of both legs for quite a long time but it got aggravated for the past couple of days. He denied fever, chills, confusion, altered mental state. He informed us that he can not have the permanent urinary catheterization or Patricia cath eterization but wick system is okay. He Missed the hemodialysis on today. Medication Reconciliation Allergies: Coded Allergies: Iodinated Contrast Media (Verified Allergy, Severe, SOB, DIAPHORETIC, 01/17/25) bee venom protein (honey bee) (Verified Allergy, Unknown, 05/31/24) iodine (Verified Adverse Reaction, Intermediate, SEE COMMENTS, 01/17/25) 1998 post ivp- pt c/o chest and abd pain- to er- no treatment needed- resolved. Scheduled Amiodarone HCl (Amiodarone HCl), 1 TAB PO BID, (Reported) Aspirin (Aspirin), 1 TAB PO DAILY, (Reported) Calcium Acetate (Calcium Acetate), 2 CAP PO TID, (Reported) Carvedilol* (Coreg*), 0.5 TABLET PO BID, (Reported) Duloxetine HCl (Duloxetine HCl), 60 MG PO DAILY, (Reported) Ferrous Sulfate (Ferrous Sulfate), 325 MG PO DAILY Fluticasone Propionate (Fluticasone Propionate), 2 SPRAYS BOTHNARES DAILY, (Reported) Fluticasone/Umeclidin/Vilanter (Trelegy Ellipta 100-62.5-25), 1 PUFFS INH QAM, (Reported) Folic Acid/Vitamin B Comp W-C (Dialyvite Tablet), 1 TAB PO DAILY, (Reported) Gabapentin (Gabapentin), 0.5 TAB PO HS, (Reported) Midodrine Hcl (Midodrine Hcl), 1 TAB PO DAILY, (Reported) Multivitamin (Multi Vitamin Daily), 1 TAB PO DAILY, (Reported) [place]-3/Dha/Epa/Fish Oil (Fish Oil 1,000 Mg Ec Softgel), 1 CAP PO Q12H, (Reported) Omeprazole (Prilosec), 2 CAP PO BID, (Reported) Tamsulosin Hcl* (Flomax*), 1 CAP PO DAILY, (Reported) Scheduled PRN Diazepam (Diazepam), 5 MG PO DAILY PRN for anxiety, (Reported) Modafinil (Modafinil), 1 TAB PO DAILY PRN for ED, (Reported) Oxycodone HCl/Acetaminophen (Percocet 10-325 mg Tablet), 1 TAB PO Q8H PRN for pain, (Reported) Past Medical History Past Medical History: Atrial Fibrillation, Congestive Heart Failure, Hypertension, COPD, Gastritis, GERD, Acute Kidney Injury, Chronic Kidney Disease, Dialysis, Kidney Stones, UTI, Chronic Back Pain, Bipolar, Depression Other Past Medical History: Right Charcot's joint Past Surgical History: appendectomy, cholecystectomy, orthopedic surgeries, other Other Past Surgical History: Dental surgery. Av fistula placement Patient History: (DM Type 2) Diabetes mellitus type 2 MOTHER ( ), , Age: 68, Cause: of unknown cause FH: breast cancer MOTHER ( ), , Age: 68, Cause: of unknown cause FH: stroke FATHER, , Age: 69, Cause: of unknown cause Smoking Status: Former smoker Alcohol Use: None Drug Use: none Lives with: S/O Lives In: Home Review of Systems All Other Systems at this time: Reviewed and Negative ROS Reviewed in full and negative except positive pertinent as in HPI Physical Exam Vital Signs: Temperature: 98.2, Source: Temporal, Heart Rate: 64, Respiratory Rate: 20, BP: 175/146, Pulse Oximetry: 85, Weight: 118.180 Oxygen Flow Rate: 4.0 Physical Exam General: Elderly male, AAO x3, not in apparent distress, on 5 L of oxygen through nasal cannula. Head: Normocephalic with an atraumatic Eyes: Pupils- 3mm, reacting to light, conjunctiva- anicteric Nose and throat: No polyps, septum- normal, no mucosal ulcers Neck: Supple, no lymphadenopathy, no carotid bruit Respiratory: No use of accessory muscles of respiration, Bilateral normal breath sounds, no crackles Cardiac: S1-S2 heard, rythm regular, no gallop/murmur Abdomen: Obese, non distended, no tenderness, no organomegaly, bowel sounds- heard Extremities: no clubbing, 2+ nonpitting pedal edema, no deformities, peripheral pulses- 2+ Skin: warm and dry, no rash, no purpura Neuro: No focal deficit, gross cranial nerve exam- normal Progress Results/Orders Results/Orders Vital Signs 05/12/25 05/12/25 05/12/25 05/12/25 10:14 10:59 11:09 12:30 Temp 98.2 98.2 Pulse 64 59 58 Resp 20 12 18 B/P (MAP) 175/146 110/56 (74) 103/47 (65) Pulse Ox 85 97 97 O2 Flow Rate 4.0 5.0 5.0 Laboratory Tests Test 05/12/25 10:34 05/12/25 12:10 White Blood Count 4.8 Red Blood Count 2.82 L Hemoglobin 7.7 L Hematocrit 24.4 L Mean Corpuscular Volume 86.6 Mean Corpuscular Hemoglobin 27.1 Mean Corpuscular Hemoglobin Concent 31.3 L Red Cell Distribution Width 17.5 H Platelet Count 237 Mean Platelet Volume 6.1 L Neutrophils (%) (Auto) 67.6 Lymphocytes (%) (Auto) 16.3 L Monocytes (%) (Auto) 11.2 Eosinophils (%) (Auto) 4.4 Basophils (%) (Auto) 0.5 Neutrophils # (Auto) 3.2 Lymphocytes # (Auto) 0.8 L Monocytes # (Auto) 0.5 Eosinophils # (Auto) 0.2 Basophils # (Auto) 0.0 CBC Comment Sodium Level 139 Potassium Level 4.7 Chloride Level 98 L Carbon Dioxide Level 29.8 Anion Gap 11 Blood Urea Nitrogen 57 H Creatinine 8.30 H Estimated GFR/1.73 m2 6 BUN/Creatinine Ratio 6.9 L Glucose Level 87 Lactic Acid Level 1.2 Calcium Level 8.8 Albumin 2.3 L Procalcitonin 0.67 H Chemistry Comments Urine Specimen Description Straight cath Urine Color Yellow Urine Clarity Turbid Urine pH 8.0 Urine Specific [place] 1.020 Urine Protein 100 H Urine Glucose (UA) Negative Urine Ketones Negative Urine Occult Blood Small Urine Nitrite Positive H Urine Bilirubin Negative Urine Urobilinogen 0.2 Urine Leukocyte Esterase Large H Urine RBC 3-10 Urine WBC Tntc H Urine Squamous Epithelial Cells Few Urine Amorphous Phosphates 1+ Urine Bacteria 4+ Urine Culture Indicated Indicated Volume Urine Centrifuged 10 ml Urine Comment Microbiology Date/Time Source Procedure Growth Status 05/12/25 12:41 Urine Straight Cath Urine Culture - Final Staphylococcus Lugdenensis Complete Medical Decision Making Findings Suspected urinary tract infection. Evaluated with CBC, CMP, urinalysis and bladder scan Bladder scan showed 270 mL of urine. 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 Paged Hospitalist for a UTI, BRENDA on chronic kidney disease, needs hemodialysis BRENDA on CKD UTI Normocytic hypochromic anemia, moderate Restless leg syndrome COPD, not in acute exacerbation Urinary Diff Dx:Considerations: Include: Renal failure, UTI Departure Disposition: 09 ADMITTED INPATIENT Admission Level of Care: PCU with Tele Impression: Primary Impression: UTI (urinary tract infection) Additional Impressions: Acute on chronic renal failure Anemia Condition: Stable Referrals: NO PRIMARY CARE PROVIDER (PCP) Education Educated: Patient Educated regarding: diagnosis, treatment, prognosis, need for follow up Signature Scribe Signature: The note accurately reflects work and decisions made by me.Kareem Benton - Resident 05/12/25 13:04 Attestation: The note accurately reflects work and decisions made by me.Kareem Benton - Resident 05/12/25 13:04 I saw and evaluated this patient with Dr. Benton and agree with the assessment and plan. KAREEM BENTON, RES May 12, 2025 11:11 WALDO RAJPUT MD May 15, 2025 15:12
[2025-05-12 12:28] LABS: BILIRUBIN,URINE NEGATIVE (Neg); CLARITY,URINE TURBID (Clear); COLOR,URINE YELLOW (Yellow); GLUCOSE, URINE NEGATIVE (Neg); KETONES,URINE NEGATIVE (Neg); LEUKOCYTE ESTERASE ,URINE LARGE (Neg); NITRITES, URINE POSITIVE (Neg); OCCULT BLOOD,URINE SMALL (Neg); PROTEIN,URINE 100 mg/dl (Neg); UROBILINOGEN,URINE 0.2 E.U/dL (0.2-1.0)
[2025-05-12 12:29] LABS: UA COLLECTION TYPE STRAIGHT CATH
[2025-05-12 12:39] LABS: WBC,URINE TNTC /HPF (0-4)
[2025-05-12 12:40] LABS: BACTERIA,URINE 4+ /HPF (Neg); SQUAMOUS EPITHELIAL CELL,UR FEW /LPF (FEW)
[2025-05-12 12:41] LABS: AMORPHOUS PHOSPHATES 1+
[2025-05-12] MEDS: CefTRIAXone 2gm/D5W 50ml BAG 50 ML IV ONE (13:06)
[2025-05-12] MEDS: midodrine 5mg tablet PO ONE (13:14)
--- NOTE | 2025-05-12 14:26 | RADIOLOGY REPORT ---
CLINICAL INFORMATION: Urinary tract infection. TECHNIQUE: Axial CT images of the abdomen and pelvis were obtained without IV contrast. Coronal and s agittal reformatted images were obtained, reviewed, and stored. Evaluation of the parenchymal organs is limited without IV contrast. Evaluation of the bowel and mesentery is limited without oral contras t. All CT scans at this medical facility are performed using dose modulation techniques as appropriat e to a performed exam including the following: Automated exposure control was utilized; adjustment of the MA and/or KV according to patient size; and use of iterative reconstruction technique. CTDIvol = 35.62 mGy DLP = 2070.71 mGy-cm COMPARISON: CT CT ABDOMEN PELVIS on DOS: 01/17/25, CT CT ABDOMEN PELVIS on DOS: 05/31/24, CT CT ABDOMEN PELVIS on DOS: 04/08/24 FINDINGS: Lung bases: Atelectasis and consolidations in the lower lobes bilaterally. Liver: Grossly unremarkable in its noncontrast enhanced appearance. No abnormal density or focal lesi on identified. Biliary: Cholecystectomy. Spleen: Calcified granulomas in the spleen. Pancreas: Moderate fatty changes in the pancreas. Adrenal glands: Unremarkable. No mass. Kidneys: Atrophic kidneys. There is mild left hydronephrosis and hydroureter with no obstructing calc ulus visualized. Minimal stranding adjacent to the left ureter. There are nonobstructing bilateral re nal calculi. Aorta/Vascular: Moderate to marked arterial calcification. No abdominal aortic aneurysm. Retroperitoneum: No mass or lymphadenopathy. Bowel/mesentery: No small bowel obstruction. Appendix is not visualized. There is fatty replacement i n the wall of the cecum and ascending colon, may be sequela of prior inflammation. Moderate stool in the colon. Pelvic organs: Grossly unremarkable. Bladder: [id number] stranding adjacent to the bladder with moderate wall thickening. Abdominal wall: Mild anasarca. Small fat containing umbilical hernia. Bones: No acute fracture or suspicious intraosseous lesion. IMPRESSION: 1. Prominent inflammatory stranding adjacent to the bladder with associated wall thickening, likely c orrelating with reported clinical history of urinary tract infection. 2. Mild left hydronephrosis and hydroureter with no obstructing calculus. Possible partial obstructio n at the ureterovesical junction due to the bladder wall thickening and inflammatory changes. Correla te with clinical findings. Ascending urinary tract infection also not excluded in the appropriate cli nical setting as there is minimal stranding adjacent to the left ureter. 3. Additional findings as described above.
[2025-05-12] MEDS ORDERED: mag hydrox/Alum hydrox/simeth 30ml oral suspension PO PRN (14:35)
[2025-05-12] MEDS ORDERED: potassium Cl 20 mEq SR tablet PO PRN ×2 (14:35)
[2025-05-12] MEDS ORDERED: magnesium Cl slow-release 64mg tablet PO PRN (14:35)
[2025-05-12] MEDS ORDERED: potassium Cl 40MEQ/1/2NS 520ml 520 ML IV PRN (14:35)
[2025-05-12] MEDS ORDERED: docusate sod 100mg capsule PO PRN (14:35)
[2025-05-12] MEDS ORDERED: magnesium sulf-water 4G/100mL 100 ML IV PRN (14:35)
[2025-05-12] MEDS ORDERED: HYDROcodone/acetaminophen 5mg/325mg tablet PO PRN (14:35)
[2025-05-12] MEDS ORDERED: magnesium hydroxide 30ml (MOM) UD suspension PO PRN (14:35)
[2025-05-12] MEDS ORDERED: magnesium sulf-water 2g/50mL 50 ML IV PRN (14:35)
--- NOTE | 2025-05-12 14:38 | HISTORY AND PHYSICAL-Residence ---
History & Physical Providers to CC Resident Creating Document: LUISREINALDO, RES ~ History of Present Illness Primary Medical Doctor: Inez Holguin MD Reason for Admit\Complaint: UTI with ESRD on HD History of Present Illness A 70 years old male with a past medical history of ESRD on HD(Sunday, , Sunday at [facility]) and his machinist helper marine is Dr. Doe, COPD, diastolic CHFpEF 50- 55%, right Charcot joint disease, AFib with CVR on no anticoagulations presented with suspected UTI by witnessing the cloudy smelly urine sample on the last HD time along with progressive worsen acute on chronic SOB and Shaking extremities this morning. He is going to [facility] PCP and his machinist helper marine is Dr Doe. He usually has to use nasal cannula oxygen supplement at 4-5 L 18/06, he is mainly ambulating with wheelchair and currently living with his (Mr Murray). He has noticed that he has progressive worsening acute on chronic shortness of breaths which has been having since two years ago, abnormal extreme shaking of the extremities this morning was getting worse over last 6-8 months along with generalized weakness and fatigue over past few days. He found that he has smelly cloudy urine sample on the last HD session which was sent out to [facility] for UA and C&S but no report back yet, and above concerns are making him decided to come to ER today. He denies fever with chills and rigors, abdominal pain, low back pain, nausea vomiting, any lower urinary tract infection symptoms including polyuria dysuria hematuria nocturia. He usually has to straight catheterization whenever he has to pee. He also denied shortness of breaths association with the orthopnea PND and bilateral pedal edema, hemoptysis and chest pain/pressure/discomfort. He also complained about the back pain as well. The last time admission for HD I was a month ago treated with the ceftriaxone and discharged with oral ceftazidime. Allergies: Coded Allergies: Iodinated Contrast Media (Verified Allergy, Severe, SOB, DIAPHORETIC, 01/17/25) bee venom protein (honey bee) (Verified Allergy, Unknown, 05/31/24) iodine (Verified Adverse Reaction, Intermediate, SEE COMMENTS, 01/17/25) 1998 post ivp- pt c/o chest and abd pain- to er- no treatment needed- resolved. Home Medications Home Medications Active Ferrous Sulfate 325 Mg (65 Mg Iron) Tablet 325 Mg PO DAILY 30 Days Reported Fluticasone Propionate 50 Mcg/Actuation [place].susp 2 Sprays BOTHNARES DAILY Aspirin 325 Mg Tablet 1 Tab PO DAILY Prilosec (Omeprazole) 40 Mg Capsule 2 Cap PO BID Midodrine Hcl 10 Mg Tablet 1 Tab PO DAILY Amiodarone HCl 200 Mg Tablet 1 Tab PO BID Gabapentin 600 Mg Tablet 0.5 Tab PO HS 30 Days Flomax* (Tamsulosin HCl) 0.4 Mg Cap.sr.24h 1 Cap PO DAILY 30 Days Coreg* (Carvedilol) 12.5 Mg Tablet 0.5 Tablet PO BID Multi Vitamin Daily (Multivitamin) 1 Each Tablet 1 Tab PO DAILY 30 Days Fish Oil 1,000 Mg Ec Softgel ([place]-3/Dha/Epa/Fish Oil) 300 Mg-1,000 Mg Capsule. 1 Cap PO Q12H 30 Days Dialyvite Tablet (Folic Acid/Vitamin B Comp W-C) Unknown Strength Tablet 1 Tab PO DAILY 30 Days Modafinil 200 Mg Tablet 1 Tab PO DAILY PRN Trelegy Ellipta 100-62.5-25 (Fluticasone/Umeclidin/Vilanter) 100-62.5 Blst.w.dev 1 Puffs INH QAM Calcium Acetate 667 Mg Capsule 2 Cap PO TID Diazepam 5 Mg Tablet 5 Mg PO DAILY PRN 30 Days Percocet 10-325 mg Tablet (Oxycodone HCl/Acetaminophen) 10 Mg-325 Mg Tablet 1 Tab PO Q8H PRN MDD 6 Tablet(s) Duloxetine HCl 60 Mg Capsule. 60 Mg PO DAILY 30 Days Past Medical History Past Medical History ESRD on HD(Sunday, , Sunday at [facility]) and his machinist helper marine is Dr. Doe, COPD, diastolic CHFpEF 50-55%, right Charcot joint disease, AFib with CVR on no anticoagulations Past Surgical History Surgical History Comment Appendicectomy, cholecystectomy,orthopedic surgeries Family History Family History: (DM Type 2) Diabetes mellitus type 2 MOTHER ( ), , Age: 68, Cause: of unknown cause FH: breast cancer MOTHER ( ), , Age: 68, Cause: of unknown cause FH: stroke FATHER, , Age: 69, Cause: of unknown cause Past Social History Social History Comment He is going to [facility] PCP and his machinist helper marine is Dr Doe. He usually has to use nasal cannula oxygen supplement at 4-5 L 18/06, he is mainly ambulating with wheelchair and currently living with his (Mr Murray). Denies using any illicit drugs alcohol and smoking. Smoking: Non-Smoker, Cigarettes Alcohol Use: None Drug Use: None Lives with: S/O Lives In: Home ROS All Other Systems: Reviewed and Negative ROS ROS were review WNL except for the above-mentioned in HPI Exam Vitals: Vital Signs Date Time Temp Pulse Resp B/P (MAP) Pulse Ox O2 Delivery O2 Flow Rate FiO2 05/12/25 12:30 98.2 58 18 103/47 (65) 97 5.0 General: General: obese, Well alert, well oriented, not confused, not agitated, not in acute distress, well cooperated during the physical. HEENT: HEENT: Conjunctive are pale, sclerae clear, no icterus, pupil is equal in both sides, reactive to light, no ear discharge, no pharyngeal erythema or an edema, mouth and lips are slightly dry. Neck: Neck: Supple, no JVD, no lymphadenopathy and thyromegaly. Chest: Lungs: Equal air entry on both lungs, no additional sounds Cardiovascular: Heart: S1-S2 regular sinus rhythm and, regular rate, no gallops, no rubs, no murmurs Abdomen: Abdomen: No visible peristalsis, Bowel sounds present on auscultation, soft, nontender, no guarding, no rigidity Extremities: Extremities: No obvious deformities, 1+ pitting edema bilaterally, capillary refill intact, able to wiggle toes both sides, peripheral pulsations are intact on both sides Central Nervous System: AMERICAN HISTORY TEACHER: No focal neurological deficits, no motor and sensory weakness in all 4 extremities, could move all 4 extremities Musculoskeletal: Musculoskeletal: No joint swelling, deformities, inflammations, and no scoliosis and back tenderness Skin: Skin: No active skin lesions and rashes Diagnostic Data Last Recorded Lab Results: 05/12/25 1034 05/12/25 1034 Advance Care Planning Advanced Care plannin - 30 Minutes Additional Plan A 70 years old male with a past medical history of ESRD on HD(Sunday, , Sunday at [facility]) and his machinist helper marine is Dr. Doe, COPD, diastolic CHFpEF 50- 55%, right Charcot joint disease, AFib with CVR on no anticoagulations presented with suspected UTI by witnessing the cloudy smelly urine sample on the last HD time along with progressive worsen acute on chronic SOB and Shaking extremities this morning. # LUTI # ESRD on HD (Sunday, , Sunday) # normochromic normocytic anemia -his lowest creatinine was around three a year ago. -presented with creatinine 8.3 on admission, last time HD was on Sunday -UA show positive protein, leukocyte esterase, nitrite, TNTC WBC. -did not meet Sepsis criteria -Nib Inspector Nephrology was consulted and appreciate it -normochromic normocytic anemia most probably from anemia of chronic disease -Nephrology recommended for IV albumin, Epoetin Jesse at HD. -please follow up with pending Labs (iron study, phosphorous, PTH, HBsAg etc) -given one time dose of IV 2 g ceftriaxone ER, followed by daily , adjust as per Urine C&S -abdomen and pelvis CT without IV contrast showed IMPRESSION: 1. Prominent inflammatory stranding adjacent to the bladder with associated wall thickening, likely correlating with reported clinical history of urinary tract infection. 2. Mild left hydronephrosis and hydroureter with no obstructing calculus. Possible partial obstruction at the ureterovesical junction due to the bladder wall thickening and inflammatory changes. Correlate with clinical findings. Ascending urinary tract infection also not excluded in the appropriate clinical setting as there is minimal stranding adjacent to the left ureter. # COPD # Hx of CHFpEF 50-55% # history of AFib with CVR -medication reconciliation was done, continue appropriately. -DuoNeb q.4 hours as needed -continue AFib rate control medications amiodarone and carvedilol. # right Charcot joints - please consult with remote computer terminal operator usage of Gabapentin 300 mg HS with Nephrology -continue pain control with [place] five as needed, trying to avoid nephrotoxic pain medications CODE STATUS: Full code DVT prophylaxis: SCDs until fully ambulatory Analgesia/sedation: P.o. [place]-five as needed Lines/tubes: PIV GI prophylaxis: Omeprazole, please consult with Nephrology for possible nephrotoxic Nutrition: Renal diet Prognosis: Guarded Disposition: Continue medical management including hemodialysis as scheduled, IV antibiotics, PT eval and DC plan. Resident MD attestation: Patient was seen, examined and discussed with attending MD, Dr. Oni SMITH MD Internal Medicine Resident, PGY2 [facility] Date of Service: May 12, 2025 Billing Provider: DANNA REYES MD Common Visit Codes: [id number] INP/OBS CARE (HIGH) REINALDO SMITH, RES May 12, 2025 14:38 DANNA REYES MD May 13, 2025 12:08
[2025-05-12 15:12] LABS: APTT 29 SECONDS (22-32); PROTHROMBIN TIME 10.4 SECONDS (9.0-12.0)
--- NOTE | 2025-05-12 15:50 | HISTORY AND PHYSICAL-Residence ---
History & Physical Providers to CC Resident Creating Document: MADISON DEAN RES ~ History of Present Illness Primary Medical Doctor: GEORGES Reason for Admit\\Complaint: Weakness History of Present Illness This is a 70-year-old male patient with a past medical history of ESRD on hemodialysis on Sunday, and Sunday, COPD on 5-6 L of oxygen and heart failure with preserved EF presents to the hospital with complaints of new onset worsening "shakes" of his hands making it difficult for him to hold on objects and symptoms of UTI including increased frequency, foul-smelling urine and dysuria since the last 3-4 days. As per the , the shakes are usually associated with the UTI. He provider urine sample at his dialysis center which was unless at [facility] but the urine was contaminated due to which no further action was taken. Today he came in to the hospital due to no improvement in his symptoms. Denies any fevers, chills, nausea, vomiting, diarrhea or dizziness. Allergies: Coded Allergies: Iodinated Contrast Media (Verified Allergy, Severe, SOB, DIAPHORETIC, 01/17/25) bee venom protein (honey bee) (Verified Allergy, Unknown, 05/31/24) iodine (Verified Adverse Reaction, Intermediate, SEE COMMENTS, 01/17/25) 1998 post ivp- pt c/o chest and abd pain- to er- no treatment needed- resolved. Home Medications Home Medications Active Ferrous Sulfate 325 Mg (65 Mg Iron) Tablet 325 Mg PO DAILY 30 Days Reported Fluticasone Propionate 50 Mcg/Actuation [place].susp 2 Sprays BOTHNARES DAILY Aspirin 325 Mg Tablet 1 Tab PO DAILY Prilosec (Omeprazole) 40 Mg Capsule 2 Cap PO BID Midodrine Hcl 10 Mg Tablet 1 Tab PO DAILY Amiodarone HCl 200 Mg Tablet 1 Tab PO BID Gabapentin 600 Mg Tablet 0.5 Tab PO HS 30 Days Flomax* (Tamsulosin HCl) 0.4 Mg Cap.sr.24h 1 Cap PO DAILY 30 Days Coreg* (Carvedilol) 12.5 Mg Tablet 0.5 Tablet PO BID Multi Vitamin Daily (Multivitamin) 1 Each Tablet 1 Tab PO DAILY 30 Days Fish Oil 1,000 Mg Ec Softgel ([place]-3/Dha/Epa/Fish Oil) 300 Mg-1,000 Mg Capsule.dr 1 Cap PO Q12H 30 Days Dialyvite Tablet (Folic Acid/Vitamin B Comp W-C) Unknown Strength Tablet 1 Tab PO DAILY 30 Days Modafinil 200 Mg Tablet 1 Tab PO DAILY PRN Trelegy Ellipta 100-62.5-25 (Fluticasone/Umeclidin/Vilanter) 100-62.5 Blst.w.dev 1 Puffs INH QAM Calcium Acetate 667 Mg Capsule 2 Cap PO TID Diazepam 5 Mg Tablet 5 Mg PO DAILY PRN 30 Days Percocet 10-325 mg Tablet (Oxycodone HCl/Acetaminophen) 10 Mg-325 Mg Tablet 1 Tab PO Q8H PRN MDD 6 Tablet(s) Duloxetine HCl 60 Mg Capsule.dr 60 Mg PO DAILY 30 Days Past Medical History Past Medical History ESRD COPD on baseline of 5-6 L of oxygen throughout the day Heart failure with preserved EF Past Surgical History Surgical History Comment Appendectomy, cholecystectomy and orthopedic procedures Family History Family History: (DM Type 2) Diabetes mellitus type 2 MOTHER ( ), , Age: 68, Cause: of unknown cause FH: breast cancer MOTHER ( ), , Age: 68, Cause: of unknown cause FH: stroke FATHER, , Age: 69, Cause: of unknown cause Past Social History Smoking: Non-Smoker, Cigarettes Alcohol Use: None Drug Use: None Lives with: S/O Lives In: Home ROS ROS As stated above in the HPI, otherwise all systems are reviewed and negative. Exam Vitals: Vital Signs Date Time Temp Pulse Resp B/P (MAP) Pulse Ox O2 Delivery O2 Flow Rate FiO2 05/12/25 15:17 97.9 66 14 110/53 (72) 93 Nasal Cannula 5.0 General: General: Awake and Alert, no acute distress. Morbidly obese HEENT: Conjunctiva pink, Sclera clear, Mucus Membranes moist. Resp: Diminished bibasilar breath sounds Heart: Distant heart sounds Abdomen: Obese, Soft and non tender no organomegaly Extremities: No cyanosis,clubbing or edema. Left cubital AV fistula Skin: Warm and Dry. Diagnostic Data Last Recorded Lab Results: 05/12/25 1034 05/12/25 1034 Diagnostic Data: Laboratory Tests Test 05/12/25 14:52 Prothrombin Time 10.4 SECONDS (9.0-12.0) INR International Normalized Ratio 1.0 INR Activated Partial Thromboplast Time 29 SECONDS (22-32) Coagulation Comments Advance Care Planning Advanced Care plannin - 30 Minutes Additional Plan 1. ESRD: Dialysis dependent since the last one year Etiology for ESRD unknown Usual schedule is Sunday, and Sunday Last dialysis on Sunday; we will be dialyzed today again. Epoetin before dialysis Follow iron studies, phosphorus and PTH Avoid nephrotoxic agents including pain medications such as morphine 2. Recurrent UTI: Current mild UTI present Protocol 0.6, normal lactic acid no sepsis criteria Management as per primary team with the IV Rocephin Await cultures and sensitivity 3. COPD: Oxygen-dependent Currently at baseline oxygen requirement of 5 L Lines: PIV Code status: Full code Madison Dean PGY2, Internal medicine resident Attending note: Patient seen and evaluated. discussed his . dialysis orders have been placed. care plan reviewed with the resident. care plan reviewed with resident. Every one of us knows him and has been admitted multiple times with recurrent UTIs. Brennan Amador MD Nephrology Date of Service: May 12, 2025 Billing Provider: BRENNAN AMADOR MD, DEEPANJALI, RES May 12, 2025 15:50 BRENNAN AMADOR MD May 12, 2025 19:45
[2025-05-12 16:57] LABS: PHOSPHORUS 4.8 MG/DL (2.3-4.5)
[2025-05-12] MEDS ORDERED: diazepam 5mg tablet PO PRN (18:45)
[2025-05-12] MEDS ORDERED: ipratropium/albuterol 3ml nebule NEB PRN (18:50)
[2025-05-12] MEDS: EPOETIN ALFA-EPBX 20,000 UNIT/ML 1 ML MDV IV ONE (19:43)
[2025-05-12] MEDS: LIDOcaine 1% (10mg/ml) 2ml vial SQ ONE (19:54)
[2025-05-12] MEDS: heparin 1,000unit/ml 10ml vial 10 ML IV ONE (19:55)
[2025-05-12] MEDS: heparin 1,000 units/ml 10ml inj IV ONE (19:55)
[2025-05-12] MEDS: K and/or MAG REPLACEMENT MC SCH (20:00)
[2025-05-12] MEDS: acetaminophen 325mg tablet PO PRN (20:20)
[2025-05-12] MEDS: albumin (human) 25% 100ml IV 100 ML IV PRN (20:37)
[2025-05-12] MEDS: calcium acetate 667mg (PhosLO) capsule PO SCH (20:38)
[2025-05-12] MEDS: OMEGA-3/DHA/EPA/FISH OIL 1 EACH CAPSULE.DR PO SCH (20:38)
[2025-05-12] MEDS: gabapentin 300mg capsule PO SCH (20:38)
[2025-05-12] MEDS: amiodarone 200mg tablet PO SCH (23:50)
[2025-05-12] MEDS: carvedilol 6.25mg tablet PO SCH (23:50)
[2025-05-12] MEDS: HYDROcodone/acetaminophen 10/325mg tab PO PRN (23:56)
[2025-05-13] VITALS (20 sets, daily range): BP systolic 104–160; BP diastolic 45–70; PULSE 56–78; RESP 12–23; TEMP 97.3–98.1; O2SAT 82–95
[2025-05-13] MEDS: ipratropium/albuterol 3ml nebule NEB SCH (02:27)
[2025-05-13 05:51] LABS: BASOPHILS % (AUTO) 0.4 % (0-1); EOSINOPHILS # (AUTO) 0.1 X10'3 (0-0.9); EOSINOPHILS % (AUTO) 3.1 % (0-6); HEMATOCRIT 22.1 % (42.0-52.0); LYMPHOCYTES # (AUTO) 0.6 X10'3 (1.1-4.8); LYMPHOCYTES % (AUTO) 14.8 % (21-51); MEAN CORPUSCULAR HEMOGLOBIN 26.9 PG (27.0-31.0); MEAN CORPUSCULAR HGB CONC 31.3 g/dL (33.0-36.5); MEAN CORPUSCULAR VOLUME 85.7 FL (78-98); MEAN PLATELET VOLUME 6.2 FL (7.4-10.4); MONOCYTES # (AUTO) 0.4 X10'3 (0-0.9); MONOCYTES % (AUTO) 11.3 % (2-12); NEUTROPHILS # (AUTO) 2.7 X10'3 (1.8-7.7); NEUTROPHILS % (AUTO) 70.4 % (42-75); PLATELET COUNT 201 X10'3 (140-440); RED BLOOD COUNT 2.58 X10'6 (4.70-6.10); RED CELL DISTRIBUTION WIDTH 17.5 % (11.5-14.5); WHITE BLOOD COUNT 3.9 X10'3 (4.5-11.0)
[2025-05-13 06:12] LABS: ALANINE AMINOTRANSFERASE 8 U/L (12-78); ALBUMIN 2.4 G/DL (3.4-5.0); ALBUMIN/GLOBULIN RATIO 0.6 (1.1-1.5); ALKALINE PHOSPHATASE 88 IU/L (46-116); ANION GAP 8 (8-16); ASPARTATE AMINO TRANSFERASE 5 U/L (10-37); BILIRUBIN,TOTAL 0.3 MG/DL (0.1-1.0); BLOOD UREA NITROGEN 32 MG/DL (7-18); BUN/CREATININE RATIO 5.8 (10.0-20.0); CALCIUM 8.6 MG/DL (8.5-10.1); CHLORIDE 102 MMOL/L (99-107); CREATININE 5.51 MG/DL (0.60-1.10); GLUCOSE 78 MG/DL (70-104); MAGNESIUM 2.2 MG/DL (1.5-2.4); POTASSIUM 4.6 MMOL/L (3.5-5.1); SODIUM 140 MMOL/L (135-145); TOTAL CARBON DIOXIDE 29.7 MMOL/L (24-32); TOTAL PROTEIN 6.1 G/DL (6.4-8.2); eCRCL 12 ML/MIN; eGFR 10 ML/MIN
[2025-05-13 06:15] LABS: HEMOGLOBIN 6.9 g/dl (14.0-17.9)
[2025-05-13 07:05] LABS: ABG BASE EXCESS 0.3 mmol/L (-2.0-3.0); ABG HCO3 26.6 mmol/L (21.0-28.0); ABG OXYGEN SATURATION 90.2 % (94.0-98.0); ABG PCO2 (T) 50.5 mmHg (35.0-48.0); ABG PH (T) 7.335 (7.350-7.450); ABG PO2 (T) 59.9 mmHg (83.0-108.0); ALLEN'S TEST POSITIVE; FCOHb 3.1 % (0.5-1.5); FHHb 9.5 % (0.0-5.0); FLOW 5 L/min; FMetHb 0.3 % (0.0-1.5); FO2Hb 87.1 % (94.0-98.0); MODE NC; PATIENT TEMPERATURE 36.1; TOTAL HEMOGLOBIN 7.5 G/dl (13.5-17.5)
[2025-05-13] MEDS: CefTRIAXone 2gm/D5W 50ml BAG 50 ML IV SCH (07:50)
[2025-05-13] MEDS: multivitamins, therapeutics tablet PO SCH (07:50)
[2025-05-13] MEDS: ferrous sulfate 325mg tablet PO SCH (07:50)
[2025-05-13] MEDS: aspirin 325mg tablet PO SCH (07:51)
[2025-05-13] MEDS: tamsulosin 0.4mg capsule PO SCH (07:51)
[2025-05-13] MEDS: pantoprazole 40mg Tablet.DR PO SCH (07:51)
[2025-05-13] MEDS: duloxetine 30mg CAPSULE.DR PO SCH (07:51)
[2025-05-13] MEDS: midodrine 5mg tablet PO SCH (07:51)
[2025-05-13] MEDS: fluticasone nasal spray 16GM bottle NS SCH (08:00)
[2025-05-13] MEDS: budesonide 0.5mg/2ml UD nebule IH SCH (08:04)
--- NOTE | 2025-05-13 09:22 | PROGRESS NOTE- Residence ---
Progress Note - Resident Providers to CC Resident Creating Document: MADISON HNEDRICKS RES ~ Central Line/PICC still needed: No Patricia-Non Protocol Patricia Indications Met/Not Met: F/C Indications Not Met Antibiotic Timeout Antibiotic Ordered?: Yes Subjective Patient is deep asleep when examined at bedside, difficult to wake up. On a stable, there was a lot of junk food including high phosphorus, sodium and potassium containing foods. Objective Vital Signs Date Time Temp Pulse Resp B/P (MAP) Pulse Ox O2 Delivery O2 Flow Rate FiO2 05/13/25 08:23 69 17 Nasal Cannula 5.0 05/13/25 08:11 93 40 05/13/25 06:55 98.1 125/50 (75) Result Diagram: 05/13/25 0505/13/25 05 General: Deep sleep HEENT: Conjunctiva pink, Sclera clear, Mucus Membranes moist. Resp: Unlabored. Diminished basilar breath sounds Heart: Distant heart sounds Abdomen: Obese, Soft and non tender no organomegaly. Bowel sounds present Extremities: No cyanosis,clubbing or edema. Skin: Warm and Dry. Coagulation Studies Laboratory Tests Test 05/12/25 14:52 Prothrombin Time 10.4 SECONDS (9.0-12.0) INR International Normalized Ratio 1.0 INR Activated Partial Thromboplast Time 29 SECONDS (22-32) Coagulation Comments Advance Care Planning Advanced Care plannin - 30 Minutes Assessment Assessment 70-year-old male patient with a past medical history of ESRD on hemodialysis on Sunday, and Sunday, COPD on 5-6 L of oxygen and heart failure with preserved EF presents to the hospital with complaints of new onset worsening "shakes" of his hands and symptoms consistent with a UTI. He had a mildly positive urinalysis in the hospital and has been treated with IV Rocephin. The tremors in the hands a usually associated with a UTI and he is being observed for improvement in his symptoms with the antibiotic therapy. Dialysis will be continued while inpatient. Plan Plan 1. ESRD: Usual schedule is Sunday, and Sunday Dialyzed yesterday, dialysis tomorrow again Renally adjusted Rocephin to 1 g from 2 g per day for UTI Reviewed rest of the medications, gabapentin renally adjusted 300 mg daily. Recommend to stop Cymbalta and Protonix Hyperphosphatemia- patient is on calcium acetate. Avoid nephrotoxic agents including pain medications such as morphine 2. Recurrent anemia: Hemoglobin 6.9, normocytic and hypochromic with elevated RDW Iron studies reviewed, low iron with normal ferritin. Ferritin 67. Hemoglobin 6.9; recommend repeat CBC to confirm. If repeat hemoglobin less than 7; transfuse. Start Venofer, to be continued outpatient as well 3. Abnormal peripheral smear: Mastocytosis, presence of myelocytes, metamyelocytes and promyelocytes Recommend consultation with hemato oncologist and obtaining bone marrow biopsy. We will order flow cytometry and serum tryptase level No prior HIV screening, we will also order rapid HIV one and two 4. Recurrent UTI: Current mild UTI present Protocol 0.6, normal lactic acid no sepsis criteria Management as per primary team with the IV Rocephin Await cultures and sensitivity 5. COPD: MINA- continue usage of CPAP Oxygen-dependent Currently at baseline oxygen requirement of 5 L Lines: PIV Code status: Full code Disposition: Discussed with the regarding the plan for possible bone marrow biopsy, they will take some time to discuss further with each other. Madison Hendricks PGY2, Internal medicine resident Attending NOte: patient is sleeping today. His monocytosis and immature wbc with leukopenia and anemia - is concerning for any underlying leukemia. I wish not to miss it and would like to pursue flow cytometry and bone marrow biopsy first. NO chance of getting a hematology or oncology consult here. care plan reviewed with the resident. resident discussed with the . HD agin tomorrow. Brennan Bull MD Nephrology Date of Service: May 13, 2025 Billing Provider: BRENNAN BULL MD, DEEPANJALI, KRISHNA May 13, 2025 09:22 BRENNAN BULL MD May 13, 2025 17:39
[2025-05-13] MEDS: iron sucrose complex injection 300 MG in normal saline 250ml IV soln 250 ML IV SCH (10:37)
--- NOTE | 2025-05-13 12:50 | PROGRESS NOTE- Residence ---
Progress Note - Resident Providers to CC Resident Creating Document: REINALDO SMITH RES ~ Antibiotic Timeout Antibiotic Ordered?: Yes Subjective The patient is awake and alert, his hemoglobin dropped down to 6.9 today and a about to be transfused Objective Vital Signs Date Time Temp Pulse Resp B/P (MAP) Pulse Ox O2 Delivery O2 Flow Rate FiO2 05/13/25 10:25 97.8 72 20 112/52 (72) 93 05/13/25 08:40 Nasal Cannula 4.0 40 Result Diagram: 05/13/25 0505/13/25 05 Vitals were stable at the moment. On exam, General: obese, Well alert, well oriented, not confused, not agitated, not in acute distress, well cooperated during the physical. HEENT: Conjunctive are pale, sclerae clear, no icterus, pupil is equal in both sides, reactive to light, no ear discharge, no pharyngeal erythema or an edema, mouth and lips are slightly dry. Neck: Supple, no JVD, no lymphadenopathy and thyromegaly. 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 VAULT CUSTODIAN: No focal neurological deficits, no motor and sensory weakness in all 4 extremities, could move all 4 extremities Musculoskeletal: No joint swelling, deformities, inflammations, and no scoliosis and back tenderness Skin: No active skin lesions and rashes Coagulation Studies Laboratory Tests Test 05/12/25 14:52 Prothrombin Time 10.4 SECONDS (9.0-12.0) INR International Normalized Ratio 1.0 INR Activated Partial Thromboplast Time 29 SECONDS (22-32) Coagulation Comments Assessment Assessment 70-year-old male patient with a past medical history of ESRD on hemodialysis on Sunday, and Sunday, COPD on 5-6 L of oxygen and heart failure with preserved EF presents to the hospital with complaints of new onset worsening "shakes" of his hands and symptoms consistent with a UTI. He had a mildly positive urinalysis in the hospital and has been treated with IV Rocephin. The tremors in the hands a usually associated with a UTI and he is being observed for improvement in his symptoms with the antibiotic therapy. Dialysis will be continued while inpatient. Plan Plan # LUTI # ESRD on HD (Sunday, , Sunday) # normochromic normocytic anemia 05/13/2025: Continue IV ceftriaxone which was downgraded to 1 g as per nephrology recommendation day two -continue scheduled ESRD on TTS -switch Protonix to famotidine which is less nephro toxic -continue calcium acetate for hyperphosphatemia -nephrology recommended for workup of mastocytosis and myelocytes workup and anemia including bone marrow biopsy and infection workup, we will send the patient to PCP for further workup in outpatient setting and possible referral to hemato oncology outpatient setting -given 1 unit of PRBC's four hemoglobin 6.9, continue Venofer as per Nephrology recommendation outpatient setting 05/12/2025:-his lowest creatinine was around three a year ago. -presented with creatinine 8.3 on admission, last time HD was on Sunday -UA show positive protein, leukocyte esterase, nitrite, TNTC WBC. -did not meet Sepsis criteria -Adult Family Home Program Manager Nephrology was consulted and appreciate it -normochromic normocytic anemia most probably from anemia of chronic disease -Nephrology recommended for IV albumin, Epoetin Jesse at HD. -please follow up with pending Labs (iron study, phosphorous, PTH, HBsAg etc) -given one time dose of IV 2 g ceftriaxone ER, followed by daily , adjust as per Urine C&S -abdomen and pelvis CT without IV contrast showed IMPRESSION: 1. Prominent inflammatory stranding adjacent to the bladder with associated wall thickening, likely correlating with reported clinical history of urinary tract infection. 2. Mild left hydronephrosis and hydroureter with no obstructing calculus. Possible partial obstruction at the ureterovesical junction due to the bladder wall thickening and inflammatory changes. Correlate with clinical findings. Ascending urinary tract infection also not excluded in the appropriate clinical setting as there is minimal stranding adjacent to the left ureter. # COPD # Hx of CHFpEF 50-55% # history of AFib with CVR -medication reconciliation was done, continue appropriately. -DuoNeb q.4 hours as needed -continue AFib rate control medications amiodarone and carvedilol. # right Charcot joints - please consult with vermin exterminator usage of Gabapentin 300 mg HS with Nephrology consultation -continue pain control with [place] five as needed, trying to avoid nephrotoxic pain medications CODE STATUS: Full code DVT prophylaxis: SCDs until fully ambulatory Analgesia/sedation: P.o. [place]-five as needed Lines/tubes: PIV GI prophylaxis: Famotidine Nutrition: Renal diet Prognosis: Guarded Disposition: Continue medical management including hemodialysis as scheduled, IV antibiotics, PT eval and DC plan. Resident MD attestation: Patient was seen, examined and discussed with attending MD, Dr. Oni SMITH MD Internal Medicine Resident, PGY2 [facility] Date of Service: May 13, 2025 Billing Provider: DANNA REYES MD Common Visit Codes: [id number] INP/OBS CARE(HIGH) REINALDO SMITH, RES May 13, 2025 12:50 DANNA REYES MD May 17, 2025 10:04
[2025-05-13] MEDS ORDERED: gabapentin 300mg capsule PO SCH (12:53)
[2025-05-13 13:27] LABS: HIV ANTIBODY 1&2 RAPID NON-REACTIVE (Neg)
[2025-05-13] MEDS: famotidine 20mg tablet PO SCH (19:25)
[2025-05-13] MEDS: gabapentin 100mg capsule PO SCH (20:17)
[2025-05-14] VITALS (20 sets, daily range): BP systolic 101–152; BP diastolic 50–74; PULSE 53–76; RESP 14–22; TEMP 97.3–98.3; O2SAT 89–95
[2025-05-14] MEDS: oxyCODONE/APAP 10/325mg tablet PO PRN (03:29)
[2025-05-14 05:18] LABS: HBSAG SCREEN Negative (Negative)
[2025-05-14 05:41] LABS: BASOPHILS % (AUTO) 0.8 % (0-1); EOSINOPHILS # (AUTO) 0.1 X10'3 (0-0.9); EOSINOPHILS % (AUTO) 3.5 % (0-6); HEMATOCRIT 24.7 % (42.0-52.0); HEMOGLOBIN 7.7 g/dl (14.0-17.9); LYMPHOCYTES # (AUTO) 0.9 X10'3 (1.1-4.8); MEAN CORPUSCULAR HEMOGLOBIN 26.9 PG (27.0-31.0); MEAN CORPUSCULAR HGB CONC 31.3 g/dL (33.0-36.5); MEAN CORPUSCULAR VOLUME 85.8 FL (78-98); MONOCYTES # (AUTO) 0.6 X10'3 (0-0.9); MONOCYTES % (AUTO) 13.9 % (2-12); NEUTROPHILS # (AUTO) 2.6 X10'3 (1.8-7.7); NEUTROPHILS % (AUTO) 60.8 % (42-75); PLATELET COUNT 190 X10'3 (140-440); RED BLOOD COUNT 2.88 X10'6 (4.70-6.10); RED CELL DISTRIBUTION WIDTH 17.6 % (11.5-14.5); WHITE BLOOD COUNT 4.2 X10'3 (4.5-11.0)
[2025-05-14 06:17] LABS: ALANINE AMINOTRANSFERASE 9 U/L (12-78); ALBUMIN 2.3 G/DL (3.4-5.0); ALBUMIN/GLOBULIN RATIO 0.6 (1.1-1.5); ALKALINE PHOSPHATASE 86 IU/L (46-116); ANION GAP 10 (8-16); ASPARTATE AMINO TRANSFERASE 10 U/L (10-37); BILIRUBIN,TOTAL 0.3 MG/DL (0.1-1.0); BLOOD UREA NITROGEN 43 MG/DL (7-18); BUN/CREATININE RATIO 6.2 (10.0-20.0); CALCIUM 8.6 MG/DL (8.5-10.1); CHLORIDE 98 MMOL/L (99-107); CREATININE 6.89 MG/DL (0.60-1.10); FERRITIN 142 NG/ML (26-388); GLUCOSE 100 MG/DL (70-104); POTASSIUM 4.7 MMOL/L (3.5-5.1); SODIUM 136 MMOL/L (135-145); eCRCL 9 ML/MIN; eGFR 8 ML/MIN
[2025-05-14] MEDS ORDERED: albumin (human) 25% 100ml IV 100 ML IV PRN (08:00)
[2025-05-14] MEDS: CefTRIAXone/D5W-Rocephin 1gm 50 ML IV SCH (08:37)
[2025-05-14 09:48] LABS: PHOSPHORUS 4.3 MG/DL (2.3-4.5)
[2025-05-14] MEDS: LIDOcaine 1% (10mg/ml) 2ml vial SQ ONE (12:11)
[2025-05-14] MEDS: EPOETIN ALFA-EPBX 20,000 UNIT/ML 1 ML MDV IV ONE (12:12)
--- NOTE | 2025-05-14 14:26 | PROGRESS NOTE- Residence ---
Progress Note - Resident Providers to CC Resident Creating Document: REINALDO SMITH RES ~ Antibiotic Timeout Antibiotic Ordered?: Yes Subjective The patient is awake and alert, he has a desire to have a bone marrow biopsy which was discussed by farmworker while he will be hospitalized here. He is going to have his scheduled HD today. Objective Vital Signs Date Time Temp Pulse Resp B/P (MAP) Pulse Ox O2 Delivery O2 Flow Rate FiO2 05/14/25 14:20 66 20 106/61 (76) 93 Nasal Cannula 5.0 05/14/25 12:20 98.2 05/14/25 07:51 40 Result Diagram: 05/14/2551205/14/25 05 Vitals were stable at the moment. On exam, General: obese, Well alert, well oriented, not confused, not agitated, not in acute distress, well cooperated during the physical. HEENT: Conjunctive are pale, sclerae clear, no icterus, pupil is equal in both sides, reactive to light, no ear discharge, no pharyngeal erythema or an edema, mouth and lips are slightly dry. Neck: Supple, no JVD, no lymphadenopathy and thyromegaly. Lungs: Equal air entry on both lungs, no additional sounds Heart: S1-S2 regular sinus rhythm and, regular rate, no gallops, no rubs, no murmurs Abdomen: No visible peristalsis, Bowel sounds present on auscultation, soft, nontender, no guarding, no rigidity Extremities: No obvious deformities, 1+ pitting edema bilaterally, capillary refill intact, able to wiggle toes both sides, peripheral pulsations are intact on both sides CONTRACT CONSULTANT: No focal neurological deficits, no motor and sensory weakness in all 4 extremities, could move all 4 extremities Musculoskeletal: No joint swelling, deformities, inflammations, and no scoliosis and back tenderness Skin: No active skin lesions and rashes Coagulation Studies Laboratory Tests Test 05/12/25 14:52 Prothrombin Time 10.4 SECONDS (9.0-12.0) INR International Normalized Ratio 1.0 INR Activated Partial Thromboplast Time 29 SECONDS (22-32) Coagulation Comments Assessment Assessment A 70-year-old male patient with a past medical history of ESRD on hemodialysis on Sunday, and Sunday, COPD on 5-6 L of oxygen and heart failure with preserved EF presents to the hospital with complaints of new onset worsening "shakes" of his hands and symptoms consistent with a UTI. He had a mildly positive urinalysis in the hospital and has been treated with IV Rocephin. The tremors in the hands a usually associated with a UTI and he is being observed for improvement in his symptoms with the antibiotic therapy. Dialysis will be continued while inpatient. Plan Plan # LUTI # ESRD on HD (Sunday, , Sunday) # normochromic normocytic anemia 05/14/2025: Continue HD as scheduled, he will be having the scheduled HD today. -nephrology is on board -pending flow cytometry, and ordered BM Bx. -will need to follow up with HemOnc in the outpatient setting -blood culture Gram-positive cocci in cluster, and urine culture showed Gram- positive cocci -follow up with the repeated blood culture -upgraded to IV meropenem (day 1) from ceftriaxone after day two 05/13/2025: Continue IV ceftriaxone which was downgraded to 1 g as per nephrology recommendation day two -continue scheduled ESRD on TTS -switch Protonix to famotidine which is less nephro toxic -continue calcium acetate for hyperphosphatemia -nephrology recommended for workup of mastocytosis and myelocytes workup and anemia including bone marrow biopsy and infection workup, we will send the patient to PCP for further workup in outpatient setting and possible referral to hemato oncology outpatient setting -given 1 unit of PRBC's four hemoglobin 6.9, continue Venofer as per Nephrology recommendation outpatient setting 05/12/2025:-his lowest creatinine was around three a year ago. -presented with creatinine 8.3 on admission, last time HD was on Sunday -UA show positive protein, leukocyte esterase, nitrite, TNTC WBC. 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 -please follow up with pending Labs (iron study, phosphorous, PTH, HBsAg etc) -given one time dose of IV 2 g ceftriaxone ER, followed by daily , adjust as per Urine C&S -abdomen and pelvis CT without IV contrast showed IMPRESSION: 1. Prominent inflammatory stranding adjacent to the bladder with associated wall thickening, likely correlating with reported clinical history of urinary tract infection. 2. Mild left hydronephrosis and hydroureter with no obstructing calculus. Possible partial obstruction at the ureterovesical junction due to the bladder wall thickening and inflammatory changes. Correlate with clinical findings. Ascending urinary tract infection also not excluded in the appropriate clinical setting as there is minimal stranding adjacent to the left ureter. # COPD # Hx of CHFpEF 50-55% # history of AFib with CVR -medication reconciliation was done, continue appropriately. -DuoNeb q.4 hours as needed -continue AFib rate control medications amiodarone and carvedilol. # right Charcot joints - please consult with long term care phlebotomist usage of Gabapentin 300 mg HS with Nephrology consultation -continue pain control with [place] five as needed, trying to avoid nephrotoxic pain medications CODE STATUS: Full code DVT prophylaxis: SCDs until fully ambulatory Analgesia/sedation: P.o. [place]-five as needed Lines/tubes: PIV GI prophylaxis: famotidine Nutrition: Renal diet Prognosis: Guarded Disposition: Continue medical management including hemodialysis as scheduled, IV antibiotics, PT eval and DC plan. Resident MD attestation: Patient was seen, examined and discussed with attending MD, Dr. Woodrow SMITH MD Internal Medicine Resident, PGY2 [facility] Date of Service: May 14, 2025 Billing Provider: KANDI GIANG MD Common Visit Codes: [id number] INP/OBS CARE(HIGH) REINALDO SMITH, KRISHNA May 14, 2025 14:26 DANNA REYES MD May 17, 2025 10:04 KANDI GIANG MD May 19, 2025 15:42
[2025-05-14] MEDS: MEROPENEM 1GM/NACL 50ML IVPB 50 ML IV SCH (15:57)
--- NOTE | 2025-05-14 17:25 | PROGRESS NOTE ---
Progress Note Dictate Providers to CC ~ Central Line/PICC still needed: No Patricia Indications Met/Not Met: F/C Indications Not Met Antibiotic Ordered?: Yes Subjective Subjective staph in blood stream. started linezolid for now until we get the id and sensitivity. AV fistula being used and HD is running without trouble. he is more awake and oriented today. new set of surveillance cultures being done. Objective Vitals Vital Signs Date Time Temp Pulse Resp B/P (MAP) Pulse Ox O2 Delivery O2 Flow Rate FiO2 05/14/25 15:20 98.0 68 18 101/51 (68) 95 Nasal Cannula 5.0 05/14/25 07:51 40 Lab Results: 05/14/25 0513 05/14/25 0513 Objective Vital Signs: As above General: AAO x 3, obese body habitus, no acute distress. Skin: No rashes, lumps, ulcers, blisters, purpura or petechiae HEENT: Anicteric sclera, ALEXANDER Neck: Supple and nontender without enlargement of the thyroid, or lymphadenopathy. Chest: Normal size and shape, no tenderness, CTA bilaterally Heart: Regular. No jugular venous distention, S1 and S2 heard , no gallop Abdomen: Soft and non tender no organomegaly,BS+ Extremities: No pedal edema Neuro: Nonfocal. Coagulation Studies Laboratory Tests Test 05/12/25 14:52 Prothrombin Time 10.4 SECONDS (9.0-12.0) INR International Normalized Ratio 1.0 INR Activated Partial Thromboplast Time 29 SECONDS (22-32) Coagulation Comments Advance Care Planning Advanced Care plannin - 30 Minutes Problem\Assessment\Plan Problems/Diagnosis: (1) Sepsis Assessment & Plan: staph in blood stream. ID and sensitivity pendng. start zyvox for now. He has had resistant infections in nathen past. (2) Metabolic encephalopathy Assessment & Plan: much better today. (3) End-stage renal disease on hemodialysis Assessment & Plan: HD in progress. Sepsis Screening Skin Color: Normal Problem Qualifiers (1) Sepsis: LUCIO BULL MD May 14, 2025 17:25
--- NOTE | 2025-05-14 17:26 | PROGRESS NOTE- Residence ---
Progress Note - Resident Providers to CC Resident Creating Document: OLY HALL RES ~ Antibiotic Timeout Antibiotic Ordered?: Yes Subjective Patient was seen and examined at the bedside today. He seemed much more awake and alert. He discussed with his has been about the bone marrow transplant and agreed to get it done. Objective Vital Signs Date Time Temp Pulse Resp B/P (MAP) Pulse Ox O2 Delivery O2 Flow Rate FiO2 05/14/25 15:20 98.0 68 18 101/51 (68) 95 Nasal Cannula 5.0 05/14/25 07:51 40 Result Diagram: 05/14/2551205/14/25512 General: obese, awake and alert HEENT: Conjunctive are pale, sclerae clear, no icterus, Neck: Supple, no JVD, no lymphadenopathy and thyromegaly. Lungs: Equal air entry on both lungs, no additional sounds Heart: S1-S2 regular sinus rhythm and, regular rate, no gallops, no rubs, no murmurs Abdomen: No visible peristalsis, Bowel sounds present on auscultation, soft, nontender, no guarding, no rigidity Extremities: No obvious deformities, 1+ pitting edema bilaterally, COREMAKER PIPE: No focal neurological deficits, no motor and sensory weakness in all 4 extremities, could move all 4 extremities Musculoskeletal: No joint swelling, deformities, inflammations, and no scoliosis and back tenderness Skin: No active skin lesions and rashes Coagulation Studies Laboratory Tests Test 05/12/25 14:52 Prothrombin Time 10.4 SECONDS (9.0-12.0) INR International Normalized Ratio 1.0 INR Activated Partial Thromboplast Time 29 SECONDS (22-32) Coagulation Comments Assessment Assessment 70-year-old male patient with a past medical history of ESRD on hemodialysis on Sunday, and Sunday, COPD on 5-6 L of oxygen and heart failure with preserved EF presents to the hospital with complaints of new onset worsening "shakes" of his hands and symptoms consistent with a UTI. He had a mildly positive urinalysis in the hospital and has been treated with IV Rocephin. The tremors in the hands a usually associated with a UTI and he is being observed for improvement in his symptoms with the antibiotic therapy. Dialysis will be continued while inpatient. Plan Plan 1. ESRD: Usual schedule is Sunday, and Sunday CT abdomen showed mild left hydronephrosis and hydrated without an obstructing calculus. Dialysis today with 88975 units of Retacrit. Hyperphosphatemia- patient is on calcium acetate. Avoid nephrotoxic agents including pain medications such as morphine, also avoid Cymbalta and Protonix,, went in renally adjusted 300 mg daily 2. Recurrent anemia: normocytic and hypochromic with elevated RDW Iron studies reviewed, low iron with normal ferritin. Ferritin 67.\\ Patient got 1 unit of blood transfusion yesterday, hemoglobin improved to 7.7 Also got 02844 units of Retacrit. Currently on IV Venofer daily, recommended to continue outpatient 3. Abnormal peripheral smear: Mastocytosis, presence of myelocytes, metamyelocytes and promyelocytes and history of elevated monocytes Recommend consultation with hemato oncologist and obtaining bone marrow biopsy. order flow cytometry and serum tryptase level HIV and HBsAg negative 05/14/2025-patient agreed for bone marrow biopsy, pathologist has been consulted. 4. Recurrent UTI: Current mild UTI present Protocol 0.6, normal lactic acid no sepsis criteria Management as per primary team with the IV Rocephin Await cultures and sensitivity 05/14/2025-antibiotics changed to meropenem 5. COPD: MINA- continue usage of CPAP Oxygen-dependent Currently at baseline oxygen requirement of 5 L Lines: PIV Code status: Full code Disposition: Got dialysis today. Oly Hall M.D PGY1 Attending Note: pateinet seen and examined. on zyvox now. will adjust the antibiotics at the time of discahrge for outpatient management. more awake. HD done yesterday. will do again tomorrow. Date of Service: May 14, 2025 Billing Provider: LUCIO BULL MD, PRAVAHIKA, RES May 14, 2025 17:26 LUCIO BULL MD May 15, 2025 17:04
[2025-05-14] MEDS: linezolid 600mg/300ml PREMIX 300 ML IV ONE (19:13)
[2025-05-15] VITALS (14 sets, daily range): BP systolic 117–148; BP diastolic 64–90; PULSE 57–70; RESP 13–20; TEMP 97.3–98.1; O2SAT 90–96
[2025-05-15 06:45] LABS: BASOPHILS % (AUTO) 0.7 % (0-1); EOSINOPHILS # (AUTO) 0.1 X10'3 (0-0.9); HEMATOCRIT 25.9 % (42.0-52.0); HEMOGLOBIN 8.1 g/dl (14.0-17.9); LYMPHOCYTES # (AUTO) 0.8 X10'3 (1.1-4.8); LYMPHOCYTES % (AUTO) 17.1 % (21-51); MEAN CORPUSCULAR HEMOGLOBIN 27.1 PG (27.0-31.0); MEAN CORPUSCULAR HGB CONC 31.3 g/dL (33.0-36.5); MEAN CORPUSCULAR VOLUME 86.4 FL (78-98); MONOCYTES # (AUTO) 0.6 X10'3 (0-0.9); MONOCYTES % (AUTO) 13.2 % (2-12); NEUTROPHILS # (AUTO) 3.3 X10'3 (1.8-7.7); PLATELET COUNT 194 X10'3 (140-440); RED CELL DISTRIBUTION WIDTH 17.8 % (11.5-14.5); WHITE BLOOD COUNT 4.9 X10'3 (4.5-11.0)
[2025-05-15 06:49] LABS: ALANINE AMINOTRANSFERASE 6 U/L (12-78); ALBUMIN 2.3 G/DL (3.4-5.0); ALBUMIN/GLOBULIN RATIO 0.6 (1.1-1.5); ALKALINE PHOSPHATASE 87 IU/L (46-116); ANION GAP 6 (8-16); ASPARTATE AMINO TRANSFERASE 3 U/L (10-37); BILIRUBIN,TOTAL 0.3 MG/DL (0.1-1.0); BLOOD UREA NITROGEN 27 MG/DL (7-18); BUN/CREATININE RATIO 4.9 (10.0-20.0); CALCIUM 9.2 MG/DL (8.5-10.1); CHLORIDE 104 MMOL/L (99-107); CREATININE 5.56 MG/DL (0.60-1.10); GLUCOSE 84 MG/DL (70-104); MAGNESIUM 2.1 MG/DL (1.5-2.4); PHOSPHORUS 3.4 MG/DL (2.3-4.5); POTASSIUM 4.9 MMOL/L (3.5-5.1); SODIUM 141 MMOL/L (135-145); TOTAL CARBON DIOXIDE 30.7 MMOL/L (24-32); TOTAL PROTEIN 6.1 G/DL (6.4-8.2); eCRCL 12 ML/MIN; eGFR 10 ML/MIN
[2025-05-15 07:45] LABS: ANISOCYTOSIS 1+; ELLIPTOCYTES FEW; HYPOCHROMASIA 1+; NUCLEATED RED BLOOD CELLS 2 /100WBC (0-0); PLATELET ESTIMATE NORMAL; TOTAL CELLS COUNTED 100
[2025-05-15 07:46] LABS: TEAR DROP CELLS FEW
[2025-05-15] MEDS: linezolid 600mg/300ml PREMIX 300 ML IV SCH (10:23)
[2025-05-15 11:14] LABS: OCCULT BLOOD STOOL POSITIVE (Neg)
[2025-05-15] MEDS: pantoprazole 40MG/NS 100ML BAG 100 ML IV SCH (13:20)
--- NOTE | 2025-05-15 14:30 | CONSULTATION REPORT - RESIDENT ---
Consult Providers to CC Resident Creating Document: SHWETA ZALDIVAR RES History of Present Illness Reason for Admit\Complaint: LUT symptoms History of Present Illness A 70-year-old male with a complex medical history, including ESRD on hemodialysis (//Sun), COPD on chronic oxygen therapy, diastolic CHF (EF 50-55%), atrial fibrillation (not anticoagulated), normochromic normocytic anemia, and recurrent urinary tract infections (UTIs), presents with progressive [id number] shortness of breath (SOB), fatigue, and tremulous extremities. He reported cloudy, foul-smelling urine at his last dialysis session, raising concerns for UTI. Additional complaints include generalized weakness, fatigue, and chronic back pain. He uses straight catheterization for voiding. He denies fever, chills, abdominal pain, dysuria, hematuria, or urinary frequency. No orthopnea, paroxysmal nocturnal dyspnea (PND), or peripheral edema is reported. A CT of the abdomen/pelvis noted bladder wall thickening with adjacent inflammatory changes, suggesting UTI with possible partial obstruction. Urine cultures grew Staphylococcus species, and nephrology initiated linezolid for coverage of Gram-positive organisms, including resistant strains. Blood cultures also showed Gram-positive cocci. Antibiotic therapy was upgraded from ceftriaxone to meropenem, and now to linezolid, to address the identified pathogens and ongoing clinical concerns. On 05/13/25, the patient had a hemoglobin of 6.9, requiring a transfusion of 1 unit of PRBCs. Gastroenterology consultation was requested for anemia and positive occult blood testing without overt bleeding. 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 Colonoscopy five years ago was unremarkable. The patient has been off anticoagulants and NSAIDs since December. Allergies: Coded Allergies: Iodinated Contrast Media (Verified Allergy, Severe, SOB, DIAPHORETIC, 01/17/25) bee venom protein (honey bee) (Verified Allergy, Unknown, 05/31/24) iodine (Verified Adverse Reaction, Intermediate, SEE COMMENTS, 01/17/25) 1998 post ivp- pt c/o chest and abd pain- to er- no treatment needed- resolved. Home Medications Home Medications Active Ferrous Sulfate 325 Mg (65 Mg Iron) Tablet 325 Mg PO DAILY 30 Days Reported Fluticasone Propionate 50 Mcg/Actuation [place].susp 2 Sprays BOTHNARES DAILY Aspirin 325 Mg Tablet 1 Tab PO DAILY Prilosec (Omeprazole) 40 Mg Capsule 2 Cap PO BID Midodrine Hcl 10 Mg Tablet 1 Tab PO DAILY Amiodarone HCl 200 Mg Tablet 1 Tab PO BID Gabapentin 600 Mg Tablet 0.5 Tab PO HS 30 Days Flomax* (Tamsulosin HCl) 0.4 Mg Cap.sr.24h 1 Cap PO DAILY 30 Days Coreg* (Carvedilol) 12.5 Mg Tablet 0.5 Tablet PO BID Multi Vitamin Daily (Multivitamin) 1 Each Tablet 1 Tab PO DAILY 30 Days Fish Oil 1,000 Mg Ec Softgel ([place]-3/Dha/Epa/Fish Oil) 300 Mg-1,000 Mg Capsule. 1 Cap PO Q12H 30 Days Dialyvite Tablet (Folic Acid/Vitamin B Comp W-C) Unknown Strength Tablet 1 Tab PO DAILY 30 Days Modafinil 200 Mg Tablet 1 Tab PO DAILY PRN Trelegy Ellipta 100-62.5-25 (Fluticasone/Umeclidin/Vilanter) 100-62.5 Blst.w.dev 1 Puffs INH QAM Calcium Acetate 667 Mg Capsule 2 Cap PO TID Diazepam 5 Mg Tablet 5 Mg PO DAILY PRN 30 Days Percocet 10-325 mg Tablet (Oxycodone HCl/Acetaminophen) 10 Mg-325 Mg Tablet 1 Tab PO Q8H PRN MDD 6 Tablet(s) Duloxetine HCl 60 Mg Capsule.dr 60 Mg PO DAILY 30 Days Past Medical History Past Medical History Congestive heart failure History of AFib HTN COPD GERD CKD stage 4 on dialysis Renal stones Urinary tract infections Chronic back pain Depression Charcot foot Tardive dyskinesia Past Surgical History Surgical History Comment Appendectomy Cholecystectomy Orthopedic surgeries Family History Family History: (DM Type 2) Diabetes mellitus type 2 MOTHER ( ), , Age: 68, Cause: of unknown cause FH: breast cancer MOTHER ( ), , Age: 68, Cause: of unknown cause FH: stroke FATHER, , Age: 69, Cause: of unknown cause Past Social History Social History Comment Lives at home with his Uses a wheelchair for ambulation PCP: [facility] clinic Dr. Doe for Nephrology Dr. Barahona for cardiology Quit smoking in 2014, smoked four packs of cigarettes per day for approximately 50 years Drinks 2-3 beers, very occasionally Denies illicit drug use ROS ROS Reviewed in full. All negative except for pertinent positive HPI. Exam Vitals: Vital Signs Date Time Temp Pulse Resp B/P (MAP) Pulse Ox O2 Delivery O2 Flow Rate FiO2 05/15/25 11:00 98.1 66 18 140/64 (89) 90 Nasal Cannula 5.0 05/15/25 07:51 40 General: Awake , alert, and oriented x4, resting comfortably in the bed, in no acute distress HEENT: Atraumatic, normocephalic, EOMI, anicteric sclera ; pink conjunctiva Neck: Trachea midline. Supple, full range of motion, no JVD Cardiac: Regular rhythm, regular rate with no murmurs all over the precordium. Respiratory: Equal breath sounds bilaterally, no tachypnea, no wheezing ,rub or rales, Chest wall is symmetric and without deformity. Gastrointestinal: Abdomen symmetric, non-distended, soft, non-tender, normal bowel sounds x4 quadrant, normoactive, no hepatosplenomegaly Musculoskeletal: Mild pedal edema present Neurological: Speech is clear, alert, and oriented x 4. No motor or sensory deficit, deep tendon reflexes normal, cerebellar intact. Cranial nerves II-XII intact. Skin: Warm and dry Diagnostic Data Last Recorded Lab Results: 05/15/25 0613 05/15/25 0613 Diagnostic Data: Laboratory Tests Test 05/12/25 14:52 Prothrombin Time 10.4 SECONDS (9.0-12.0) INR International Normalized Ratio 1.0 INR Activated Partial Thromboplast Time 29 SECONDS (22-32) Coagulation Comments Additional Plan 1. Normocytic Normochromic Anemia with GI Symptoms Likely multifactorial: anemia of chronic disease (ESRD-related), and possible GI bleeding from angioectasia or gastritis. Dropping Hgb (6.9 on 05/13/2025) but no active overt bleeding; positive FOBT raises suspicion for occult GI blood loss. Plan: Outpatient colonoscopy and repeat EGD given history of gastritis and angioectasia, as discussed with Dr. Evans. Transfuse PRBCs to maintain hemoglobin >7 g/dL. Continue PPI therapy (Protonix) to prevent gastric irritation. Monitor H/H and iron study showed low iron, TIBC and % saturation Continue iron therapy 2. Recurrent UTI with Bladder Wall Thickening CT findings suggest UTI with possible partial obstruction (mild left hydronephrosis). Urine culture positive for Staphylococcus species, linezolid was initiated. Blood cultures also positive for Gram-positive cocci, repeat cultures negative. Plan: Continue linezolid as per nephrology. Monitor response to antibiotics with repeat cultures and clinical assessment. 3. ESRD on Hemodialysis Volume overload with hypoxemic respiratory failure likely exacerbating anemia symptoms. Plan: Continue hemodialysis as scheduled (//Sat). Monitor electrolytes, BUN, and creatinine post-dialysis. Continue IV epoetin isabel and Venofer as per nephrology. 4. COPD with Chronic Oxygen Requirement Chronic SOB worsened by volume overload and anemia. Plan: Continue DuoNeb q4h PRN. Currently on 5 L of oxygen via nasal cannula Ensure fluid restriction (1.5L/day). 5. Atrial Fibrillation and CHF (EF 50-55%) Cardiorenal syndrome contributing to volume overload. Currently in sinus rhythm Currently not anticoagulated due to bleeding risk and anemia. Plan: Continue rate control with amiodarone and carvedilol. Monitor BP closely; hold medications if SBP <100. 6. Chronic Back Pain Likely exacerbated by underlying Charcot joint disease and poor mobility. Plan: Continue gabapentin and Percocet, balancing pain control with renal safety. GI recommendations: Continue PPI therapy Monitor hemoglobin closely, transfuse if less than 7 Outpatient EGD and colonoscopy Shweta Zaldivar MD Internal Medicine Resident, PGY-1 Sepsis Screening Skin Color: Normal Date of Service: May 15, 2025 Billing Provider: YAHIR CHA MD, GAURAV, RES May 15, 2025 14:30
--- NOTE | 2025-05-15 16:39 | PROGRESS NOTE- Residence ---
Progress Note - Resident Providers to CC Resident Creating Document: DOM TAYLOR, RES ~ Central Line/PICC still needed: No Patricia-Non Protocol Patricia Indications Met/Not Met: F/C Indications Not Met Antibiotic Timeout Antibiotic Ordered?: Yes Subjective Patient was seen and examined at the bedside today. He is awake and alert. Urine cultures and blood cultures positive, currently on linezolid. Objective Vital Signs Date Time Temp Pulse Resp B/P (MAP) Pulse Ox O2 Delivery O2 Flow Rate FiO2 05/15/25 15:17 70 18 Nasal Cannula 5.0 05/15/25 15:10 96 40 05/15/25 15:00 98.0 133/70 (91) Result Diagram: 05/15/25 0613 05/15/25 0613 General: obese, awake and alert HEENT: Conjunctive are pale, sclerae clear, no icterus, Neck: Supple, no JVD, no lymphadenopathy and thyromegaly. 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, no motor and sensory weakness in all 4 extremities, could move all 4 extremities Musculoskeletal: No joint swelling, deformities, inflammations, and no scoliosis and back tenderness Skin: No active skin lesions and rashes Coagulation Studies Laboratory Tests Test 05/12/25 14:52 Prothrombin Time 10.4 SECONDS (9.0-12.0) INR International Normalized Ratio 1.0 INR Activated Partial Thromboplast Time 29 SECONDS (22-32) Coagulation Comments Advance Care Planning Advanced Care plannin - 30 Minutes Assessment Assessment A 70-year-old male patient with a past medical history of ESRD on hemodialysis on Sunday, and Sunday, COPD on 5-6 L of oxygen and heart failure with preserved EF presents to the hospital with complaints of new onset worsening "shakes" of his hands and symptoms consistent with a UTI. He had a mildly positive urinalysis in the hospital and has been treated with IV Rocephin. The tremors in the hands a usually associated with a UTI and he is being observed for improvement in his symptoms with the antibiotic therapy. Dialysis will be continued while inpatient. Plan Plan 1. ESRD: Usual schedule is Sunday, and Sunday CT abdomen showed mild left hydronephrosis and hydrated without an obstructing calculus. Dialysis today with 31295 units of Retacrit. Hyperphosphatemia- patient is on calcium acetate. Avoid nephrotoxic agents including pain medications such as morphine, also avoid Cymbalta and Protonix,, went in renally adjusted 300 mg daily 05/15/25-we will get dialysis tomorrow. 2. Recurrent anemia: normocytic and hypochromic with elevated RDW Iron studies reviewed, low iron with normal ferritin. Ferritin 67.\\ Patient got 1 unit of blood transfusion yesterday, hemoglobin improved to 7.7 Also got 26431 units of Retacrit. Currently on IV Venofer daily, recommended to continue outpatient 3. Abnormal peripheral smear: Mastocytosis, presence of myelocytes, metamyelocytes and promyelocytes and history of elevated monocytes Recommend consultation with hemato oncologist and obtaining bone marrow biopsy. order flow cytometry and serum tryptase level HIV and HBsAg negative 05/14/2025-patient agreed for bone marrow biopsy, pathologist has been consulted. 05/15/25-possible bone marrow biopsy on Sunday. 4. Recurrent UTI: Current mild UTI present Protocol 0.6, normal lactic acid no sepsis criteria Management as per primary team with the IV Rocephin Await cultures and sensitivity 05/14/2025-antibiotics changed to meropenem 05/15/25-urine cultures positive for Staphylococcus Lugdenesis, resistant to oxacillin and tetracycline, blood cultures positive for Gram-positive cocci. Meropenem discontinued and started on Zyvox. 5. COPD: MINA- continue usage of CPAP Oxygen-dependent Currently at baseline oxygen requirement of 5 L Lines: PIV Code status: Full code Dom Taylor M.D PGY1 Attending Note: the patient is more awake, on antibiotics. doing better. HD three times a week. care plan reviewed with resident. Brennan Bull MD Date of Service: May 15, 2025 Billing Provider: BRENNAN BULL MD, PRAVAHIKA, RES May 15, 2025 16:39 BRENNAN BULL MD May 15, 2025 17:17
--- NOTE | 2025-05-15 17:29 | PROGRESS NOTE- Residence ---
Progress Note - Resident Providers to CC Resident Creating Document: REINALDO SMITH RES ~ Antibiotic Timeout Antibiotic Ordered?: Yes Subjective Patient was found at the bedside this morning with a having any complications shortness of breath and any other lower urinary tract infection symptoms at the moment. Patient was explained that he is losing some blood in his GI tract for which and GI will be consulted. Pathologist stated that the patient is currently on aspirin, which should be stopped before the procedure BM Bx and will do the Bx on Sunday. Pathologist Dr Barry Cedeno [facility] were called and discussed about the cut off point of possible safety for BM Bx with plt count of >10 x 10*3, but their protocol is above 30 x 10*3 at which they are short for staff and will schedule the pt on Sunday at [facility]. He requested to stop ASA till before Sunday. Objective Vital Signs Date Time Temp Pulse Resp B/P (MAP) Pulse Ox O2 Delivery O2 Flow Rate FiO2 05/15/25 15:17 70 18 Nasal Cannula 5.0 05/15/25 15:10 96 40 05/15/25 15:00 98.0 133/70 (91) Result Diagram: 05/15/25 0613 05/15/25 0613 Vitals were stable at the moment. On exam, General: obese, Well alert, well oriented, not confused, not agitated, not in acute distress, well cooperated during the physical. HEENT: Conjunctive are pale, sclerae clear, no icterus, pupil is equal in both sides, reactive to light, no ear discharge, no pharyngeal erythema or an edema, mouth and lips are slightly dry. Neck: Supple, no JVD, no lymphadenopathy and thyromegaly. 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, no motor and sensory weakness in all 4 extremities, could move all 4 extremities Musculoskeletal: No joint swelling, deformities, inflammations, and no scoliosis and back tenderness Skin: No active skin lesions and rashes Coagulation Studies Laboratory Tests Test 05/12/25 14:52 Prothrombin Time 10.4 SECONDS (9.0-12.0) INR International Normalized Ratio 1.0 INR Activated Partial Thromboplast Time 29 SECONDS (22-32) Coagulation Comments Assessment Assessment A 70-year-old male patient with a past medical history of ESRD on hemodialysis on Sunday, and Sunday, COPD on 5-6 L of oxygen and heart failure with preserved EF presents to the hospital with complaints of new onset worsening "shakes" of his hands and symptoms consistent with a UTI. He had a mildly positive urinalysis in the hospital and has been treated with IV Rocephin. The tremors in the hands a usually associated with a UTI and he is being observed for improvement in his symptoms with the antibiotic therapy. Dialysis will be continued while inpatient. Plan Plan # LUTI # ESRD on HD (Sunday, , Sunday) # normochromic normocytic anemia 05/15/2025: Urine culture shows staph lugdunensis which is sensitive for vancomycin, nephrology started p.o. linezolid and continue it, and blood culture show Gram-positive cocci. -stopped meropenem after day two -continue ESRD as scheduled for Q TTS, yesterday the patient had HD without complications along with 89526 units of Retacrit -continue iron therapy -[place] pathology Dr Cedeno stated that pt will be having the BM Bx. 05/14/2025: Continue HD as scheduled, he will be having the scheduled HD today. -nephrology is on board -pending flow cytometry, and ordered BM Bx. -will need to follow up with HemOnc in the outpatient setting -blood culture Gram-positive cocci in cluster, and urine culture showed Gram- positive cocci -follow up with the repeated blood culture -upgraded to IV meropenem (day 1) from ceftriaxone after day two 05/13/2025: Continue IV ceftriaxone which was downgraded to 1 g as per nephrology recommendation day two -continue scheduled ESRD on TTS -switch Protonix to famotidine which is less nephro toxic -continue calcium acetate for hyperphosphatemia -nephrology recommended for workup of mastocytosis and myelocytes workup and anemia including bone marrow biopsy and infection workup, we will send the patient to PCP for further workup in outpatient setting and possible referral to hemato oncology outpatient setting -given 1 unit of PRBC's four hemoglobin 6.9, continue Venofer as per Nephrology recommendation outpatient setting 05/12/2025:-his lowest creatinine was around three a year ago. -presented with creatinine 8.3 on admission, last time HD was on Sunday -UA show positive protein, leukocyte esterase, nitrite, TNTC WBC. 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 -please follow up with pending Labs (iron study, phosphorous, PTH, HBsAg etc) -given one time dose of IV 2 g ceftriaxone ER, followed by daily , adjust as per Urine C&S -abdomen and pelvis CT without IV contrast showed IMPRESSION: 1. Prominent inflammatory stranding adjacent to the bladder with associated wall thickening, likely correlating with reported clinical history of urinary tract infection. 2. Mild left hydronephrosis and hydroureter with no obstructing calculus. Possible partial obstruction at the ureterovesical junction due to the bladder wall thickening and inflammatory changes. Correlate with clinical findings. Ascending urinary tract infection also not excluded in the appropriate clinical setting as there is minimal stranding adjacent to the left ureter. 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 Colonoscopy five years ago was unremarkable. The patient has been off anticoagulants and NSAIDs since December. -started IV Protonix drip -consulted with GI and appreciate it, recommended for outpatient colonoscopy and repeat EGD, to transplant PRBC's again to maintain hemoglobin>7, continue PPI, continue iron therapy. # COPD # Hx of CHFpEF 50-55% # history of AFib with CVR -medication reconciliation was done, continue appropriately. -DuoNeb q.4 hours as needed -continue AFib rate control medications amiodarone and carvedilol and has been off anticoagulants since December for GI bleeding. -[id number] socre is 3 and hold anticoagulation for GI bleeding # right Charcot joints - please consult with correction usage of Gabapentin 300 mg HS with Nephrology consultation -continue pain control with [place] five as needed, trying to avoid nephrotoxic pain medications CODE STATUS: Full code DVT prophylaxis: SCDs until fully ambulatory Analgesia/sedation: P.o. [place]-five as needed Lines/tubes: PIV GI prophylaxis: famotidine Nutrition: Renal diet Prognosis: Guarded Disposition: Continue medical management including hemodialysis as scheduled, IV antibiotics, Protonix, bone marrow biopsy plan, PT eval and DC plan with awaiting Rehab. Resident MD attestation: Patient was seen, examined and discussed with attending MD, Dr. Woodrow SMITH MD Internal Medicine Resident, PGY2 [facility] Date of Service: May 15, 2025 Billing Provider: KANDI GIANG MD Common Visit Codes: [id number] INP/OBS CARE(HIGH) REINALDO SMITH, RES May 15, 2025 17:29 KANDI GIANG MD May 19, 2025 15:42
[2025-05-16] VITALS (23 sets, daily range): BP systolic 120–151; BP diastolic 60–78; PULSE 62–84; RESP 16–24; TEMP 97.6–98.3; O2SAT 91–98
[2025-05-16] MEDS ORDERED: albumin (human) 25% 100ml IV 100 ML IV PRN (00:10)
[2025-05-16] MEDS: LIDOcaine 1% (10mg/ml) 2ml vial SQ ONE (05:39)
[2025-05-16 06:26] LABS: BASOPHILS % (AUTO) 0.8 % (0-1); EOSINOPHILS # (AUTO) 0.1 X10'3 (0-0.9); EOSINOPHILS % (AUTO) 3.8 % (0-6); HEMATOCRIT 26.7 % (42.0-52.0); HEMOGLOBIN 8.3 g/dl (14.0-17.9); LYMPHOCYTES # (AUTO) 0.3 X10'3 (1.1-4.8); LYMPHOCYTES % (AUTO) 8.2 % (21-51); MEAN CORPUSCULAR HEMOGLOBIN 27.1 PG (27.0-31.0); MEAN CORPUSCULAR HGB CONC 31.2 g/dL (33.0-36.5); MEAN CORPUSCULAR VOLUME 86.8 FL (78-98); MONOCYTES # (AUTO) 0.3 X10'3 (0-0.9); MONOCYTES % (AUTO) 8.2 % (2-12); PLATELET COUNT 157 X10'3 (140-440); RED BLOOD COUNT 3.07 X10'6 (4.70-6.10); RED CELL DISTRIBUTION WIDTH 17.7 % (11.5-14.5); WHITE BLOOD COUNT 3.8 X10'3 (4.5-11.0)
[2025-05-16 06:49] LABS: ALANINE AMINOTRANSFERASE 7 U/L (12-78); ALBUMIN 2.3 G/DL (3.4-5.0); ALBUMIN/GLOBULIN RATIO 0.6 (1.1-1.5); ALKALINE PHOSPHATASE 86 IU/L (46-116); ANION GAP 6 (8-16); ASPARTATE AMINO TRANSFERASE 9 U/L (10-37); BILIRUBIN,TOTAL 0.4 MG/DL (0.1-1.0); BLOOD UREA NITROGEN 31 MG/DL (7-18); BUN/CREATININE RATIO 4.9 (10.0-20.0); CALCIUM 8.7 MG/DL (8.5-10.1); CHLORIDE 101 MMOL/L (99-107); CREATININE 6.31 MG/DL (0.60-1.10); GLUCOSE 93 MG/DL (70-104); MAGNESIUM 1.9 MG/DL (1.5-2.4); PHOSPHORUS 2.7 MG/DL (2.3-4.5); POTASSIUM 4.4 MMOL/L (3.5-5.1); SODIUM 135 MMOL/L (135-145); TOTAL CARBON DIOXIDE 28.4 MMOL/L (24-32); TOTAL PROTEIN 5.9 G/DL (6.4-8.2); eCRCL 10 ML/MIN; eGFR 9 ML/MIN
[2025-05-16] MEDS: EPOETIN ALFA-EPBX 20,000 UNIT/ML 1 ML MDV IV ONE (07:20)
[2025-05-16] MEDS: pantoprazole 40 MG vial IV SCH (08:52)
--- NOTE | 2025-05-16 15:35 | PROGRESS NOTE ---
Progress Note Dictate Providers to CC ~ Central Line/PICC still needed: No Patricia Indications Met/Not Met: F/C Indications Not Met Antibiotic Ordered?: Yes Subjective Subjective HD done today. tolerated well. Urine culture grew Staph.ludgenesis sensistive to Vancomycin (methicillin resistant) and blood culture grew Kocuria kristinae both being sensitive to Linezolid. Objective Vitals Vital Signs Date Time Temp Pulse Resp B/P (MAP) Pulse Ox O2 Delivery O2 Flow Rate FiO2 05/16/25 11:00 98.0 84 20 146/78 (100) 96 Nasal Cannula 5.0 05/16/25 10:10 40 Lab Results: 05/16/25 0603 05/16/25 0603 Objective Vital Signs: As above General: AAO x 3, obese body habitus, no acute distress. Skin: No rashes, lumps, ulcers, blisters, purpura or petechiae HEENT: Anicteric sclera, ALEXANDER Neck: Supple and nontender without enlargement of the thyroid, or lymphadenopathy. Chest: Normal size and shape, no tenderness, CTA bilaterally Heart: Regular. No jugular venous distention, S1 and S2 heard , no gallop Abdomen: Soft and non tender no organomegaly,BS+ Extremities: No pedal edema Neuro: Nonfocal. Coagulation Studies Laboratory Tests Test 05/12/25 14:52 Prothrombin Time 10.4 SECONDS (9.0-12.0) INR International Normalized Ratio 1.0 INR Activated Partial Thromboplast Time 29 SECONDS (22-32) Coagulation Comments Advance Care Planning Advanced Care plannin - 30 Minutes Problem\Assessment\Plan Problems/Diagnosis: (1) Sepsis Assessment & Plan: staph in blood stream. Kocuria kristinae in blood stream and Staph ludgenesis in urine. (2) Metabolic encephalopathy Assessment & Plan: much better today. (3) End-stage renal disease on hemodialysis Assessment & Plan: HD done today Sepsis Screening Skin Color: Normal Problem Qualifiers (1) Sepsis: LUCIO BULL MD May 16, 2025 15:35
--- NOTE | 2025-05-16 16:22 | PROGRESS NOTE- Residence ---
Progress Note - Resident Providers to CC Resident Creating Document: REINALDO SMITH RES ~ Antibiotic Timeout Antibiotic Ordered?: Yes Subjective Patient's is doing same, now much different and no special medical complaints this morning. pt will be having the HD today as scheduled. Objective Vital Signs Date Time Temp Pulse Resp B/P (MAP) Pulse Ox O2 Delivery O2 Flow Rate FiO2 05/16/25 11:00 98.0 84 20 146/78 (100) 96 Nasal Cannula 5.0 05/16/25 10:10 40 Result Diagram: 05/16/25 0603 05/16/25 0603 Vitals were stable at the moment. On exam, General: obese, Well alert, well oriented, not confused, not agitated, not in acute distress, well cooperated during the physical. HEENT: Conjunctive are pale, sclerae clear, no icterus, pupil is equal in both sides, reactive to light, no ear discharge, no pharyngeal erythema or an edema, mouth and lips are slightly dry. Neck: Supple, no JVD, no lymphadenopathy and thyromegaly. 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, no motor and sensory weakness in all 4 extremities, could move all 4 extremities Musculoskeletal: No joint swelling, deformities, inflammations, and no scoliosis and back tenderness Skin: No active skin lesions and rashes Coagulation Studies Laboratory Tests Test 05/12/25 14:52 Prothrombin Time 10.4 SECONDS (9.0-12.0) INR International Normalized Ratio 1.0 INR Activated Partial Thromboplast Time 29 SECONDS (22-32) Coagulation Comments Assessment Assessment A 70-year-old male patient with a past medical history of ESRD on hemodialysis on Sunday, and Sunday, COPD on 5-6 L of oxygen and heart failure with preserved EF presents to the hospital with complaints of new onset worsening "shakes" of his hands and symptoms consistent with a UTI. He had a mildly positive urinalysis in the hospital and has been treated with IV Rocephin. The tremors in the hands a usually associated with a UTI and he is being observed for improvement in his symptoms with the antibiotic therapy. Dialysis will be continued while inpatient. Plan Plan # LUTI # ESRD on HD (Sunday, , Sunday) # normochromic normocytic anemia 05/16/2025: Urine culture showed Staphylococcus lugdunensis and urine C&S showed Kocuria kritnae sensitive for PO Linezolid and continue it Day 2. -Plan for BM Bx on coming Sunday05/15/2025: Urine culture shows staph lugdunensis which is sensitive for vancomycin, nephrology started p.o. linezolid and continue it, and blood culture show Gram-positive cocci. -stopped meropenem after day two -continue ESRD as scheduled for Q TTS, yesterday the patient had HD without complications along with 31152 units of Retacrit -continue iron therapy -[facility] Dr Cedeno stated that pt will be having the BM Bx. 05/14/2025: Continue HD as scheduled, he will be having the scheduled HD today. -nephrology is on board -pending flow cytometry, and ordered BM Bx. -will need to follow up with HemOnc in the outpatient setting -blood culture Gram-positive cocci in cluster, and urine culture showed Gram- positive cocci -follow up with the repeated blood culture -upgraded to IV meropenem (day 1) from ceftriaxone after day two 05/13/2025: Continue IV ceftriaxone which was downgraded to 1 g as per nephrology recommendation day two -continue scheduled ESRD on TTS -switch Protonix to famotidine which is less nephro toxic -continue calcium acetate for hyperphosphatemia -nephrology recommended for workup of mastocytosis and myelocytes workup and anemia including bone marrow biopsy and infection workup, we will send the patient to PCP for further workup in outpatient setting and possible referral to hemato oncology outpatient setting -given 1 unit of PRBC's four hemoglobin 6.9, continue Venofer as per Nephrology recommendation outpatient setting 05/12/2025:-his lowest creatinine was around three a year ago. -presented with creatinine 8.3 on admission, last time HD was on Sunday -UA show positive protein, leukocyte esterase, nitrite, TNTC WBC. 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 -please follow up with pending Labs (iron study, phosphorous, PTH, HBsAg etc) -given one time dose of IV 2 g ceftriaxone ER, followed by daily , adjust as per Urine C&S -abdomen and pelvis CT without IV contrast showed IMPRESSION: 1. Prominent inflammatory stranding adjacent to the bladder with associated wall thickening, likely correlating with reported clinical history of urinary tract infection. 2. Mild left hydronephrosis and hydroureter with no obstructing calculus. Possible partial obstruction at the ureterovesical junction due to the bladder wall thickening and inflammatory changes. Correlate with clinical findings. Ascending urinary tract infection also not excluded in the appropriate clinical setting as there is minimal stranding adjacent to the left ureter. # Possible Upper GI bleeding on ASA 05/16/2025: Continue p.o. pantoprazole 40 mg b.i.d. 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 Colonoscopy five years ago was unremarkable. The patient has been off anticoagulants and NSAIDs since December. -started IV Protonix drip -consulted with GI and appreciate it, recommended for outpatient colonoscopy and repeat EGD, to transplant PRBC's again to maintain hemoglobin>7, continue PPI, continue iron therapy. # COPD # Hx of CHFpEF 50-55% # history of AFib with CVR -medication reconciliation was done, continue appropriately. -DuoNeb q.4 hours as needed -continue AFib rate control medications amiodarone and carvedilol and has been off anticoagulants since December for GI bleeding. 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 [place]-five as needed Lines/tubes: PIV GI prophylaxis: famotidine Nutrition: Renal diet Prognosis: Guarded Disposition: Continue medical management including hemodialysis as scheduled, IV antibiotics, Protonix, bone marrow biopsy plan on Sunday, PT eval and DC plan with awaiting Rehab. Resident MD attestation: Patient was seen, examined and discussed with attending MD, Dr. Woodrow SMITH MD Internal Medicine Resident, PGY2 [facility] Date of Service: May 16, 2025 Billing Provider: KANDI GIANG MD Common Visit Codes: [id number] INP/OBS CARE(HIGH) REINALDO SMITH, RES May 16, 2025 16:21 KANDI GIANG MD May 19, 2025 15:42
[2025-05-16] MEDS: ondansetron/PF 4mg/2ml inj IV PRN (16:47)
[2025-05-16] MEDS: pantoprazole 40mg Tablet.DR PO SCH (16:48)
[2025-05-17] VITALS (15 sets, daily range): BP systolic 95–137; BP diastolic 46–67; PULSE 55–76; RESP 15–22; TEMP 97.4–97.7; O2SAT 92–100
[2025-05-17 06:34] LABS: BASOPHILS # (AUTO) 0.1 X10'3 (0-0.2); BASOPHILS % (AUTO) 1.2 % (0-1); EOSINOPHILS # (AUTO) 0.3 X10'3 (0-0.9); HEMATOCRIT 26.8 % (42.0-52.0); HEMOGLOBIN 8.4 g/dl (14.0-17.9); LYMPHOCYTES % (AUTO) 20.3 % (21-51); MEAN CORPUSCULAR HEMOGLOBIN 27.5 PG (27.0-31.0); MEAN CORPUSCULAR HGB CONC 31.4 g/dL (33.0-36.5); MEAN CORPUSCULAR VOLUME 87.8 FL (78-98); MEAN PLATELET VOLUME 6.4 FL (7.4-10.4); MONOCYTES # (AUTO) 0.9 X10'3 (0-0.9); MONOCYTES % (AUTO) 18.5 % (2-12); NEUTROPHILS # (AUTO) 2.5 X10'3 (1.8-7.7); PLATELET COUNT 173 X10'3 (140-440); RED BLOOD COUNT 3.05 X10'6 (4.70-6.10); WHITE BLOOD COUNT 4.8 X10'3 (4.5-11.0)
[2025-05-17 07:15] LABS: ANISOCYTOSIS 1+; NUCLEATED RED BLOOD CELLS 1 /100WBC (0-0); PLATELET ESTIMATE NORMAL; TOTAL CELLS COUNTED 100
[2025-05-17 07:16] LABS: POIKILOCYTOSIS FEW; POLYCHROMASIA 1+
[2025-05-17 07:17] LABS: ALANINE AMINOTRANSFERASE 6 U/L (12-78); ALBUMIN 2.2 G/DL (3.4-5.0); ALBUMIN/GLOBULIN RATIO 0.6 (1.1-1.5); ALKALINE PHOSPHATASE 84 IU/L (46-116); ANION GAP 8 (8-16); ASPARTATE AMINO TRANSFERASE 14 U/L (10-37); BILIRUBIN,TOTAL 0.3 MG/DL (0.1-1.0); BLOOD UREA NITROGEN 20 MG/DL (7-18); BUN/CREATININE RATIO 3.4 (10.0-20.0); CHLORIDE 102 MMOL/L (99-107); CREATININE 5.91 MG/DL (0.60-1.10); GLUCOSE 91 MG/DL (70-104); POTASSIUM 4.4 MMOL/L (3.5-5.1); SODIUM 136 MMOL/L (135-145); TOTAL CARBON DIOXIDE 25.9 MMOL/L (24-32); eCRCL 11 ML/MIN; eGFR 9 ML/MIN
--- NOTE | 2025-05-17 09:44 | PROGRESS NOTE ---
Progress Note Dictate Providers to CC ~ Central Line/PICC still needed: No Patricia Indications Met/Not Met: F/C Indications Not Met Antibiotic Ordered?: N/A Subjective Subjective s/p Hd yesterday. has bacteremia and is on Linezolid. Objective Vitals Vital Signs Date Time Temp Pulse Resp B/P (MAP) Pulse Ox O2 Delivery O2 Flow Rate FiO2 05/17/25 06:00 97.6 59 18 114/55 (74) 97 Nasal Cannula 5.0 05/17/25 03:36 N/A Lab Results: 05/17/25 0609 05/17/25 0609 Objective Vital Signs: As above General: AAO x 3, obese body habitus, no acute distress. Skin: No rashes, lumps, ulcers, blisters, purpura or petechiae HEENT: Anicteric sclera, ALEXANDER Neck: Supple and nontender without enlargement of the thyroid, or lymphadenopathy. Chest: Normal size and shape, no tenderness, CTA bilaterally Heart: Regular. No jugular venous distention, S1 and S2 heard , no gallop Abdomen: Soft and non tender no organomegaly,BS+ Extremities: No pedal edema Neuro: Nonfocal. Coagulation Studies Laboratory Tests Test 05/12/25 14:52 Prothrombin Time 10.4 SECONDS (9.0-12.0) INR International Normalized Ratio 1.0 INR Activated Partial Thromboplast Time 29 SECONDS (22-32) Coagulation Comments Advance Care Planning Advanced Care plannin - 30 Minutes Problem\Assessment\Plan Problems/Diagnosis: (1) Sepsis Assessment & Plan: staph in blood stream. Kocuria kristinae in blood stream and Staph ludgenesis in urine. (2) Metabolic encephalopathy Assessment & Plan: much better today. (3) End-stage renal disease on hemodialysis Assessment & Plan: HD done yesterday. next hd on sunday. Sepsis Screening Skin Color: Normal Problem Qualifiers (1) Sepsis: LUCIO BULL MD May 17, 2025 09:44
--- NOTE | 2025-05-17 16:46 | PROGRESS NOTE- Residence ---
Progress Note - Resident Providers to CC Resident Creating Document: DHEERAJ JORGE CC: KANDI GIANG MD ~ Antibiotic Timeout Antibiotic Ordered?: Yes Subjective Patient was seen at bedside today. Per , patient is much more alert and awake today. Patient reports some stomach discomfort. Otherwise doing well. Underwent hemodialysis yesterday. He is undergoing a bone marrow biopsy tomorrow Objective Vital Signs Date Time Temp Pulse Resp B/P (MAP) Pulse Ox O2 Delivery O2 Flow Rate FiO2 05/17/25 15:34 56 20 Nasal Cannula 4.0 05/17/25 15:26 97 36 05/17/25 11:00 97.4 116/49 (71) Result Diagram: 05/17/25 0609 05/17/25 0609 General: obese, Well alert, well oriented, not confused, not agitated, not in acute distress, well cooperated during the physical. HEENT: Conjunctive are pale, sclerae clear, no icterus, pupil is equal in both sides, reactive to light, no ear discharge, no pharyngeal erythema or an edema, mouth and lips are slightly dry. Neck: Supple, no JVD, no lymphadenopathy and thyromegaly. 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: No focal neurological deficits, no motor and sensory weakness in all 4 extremities, could move all 4 extremities Musculoskeletal: No joint swelling, deformities, inflammations, and no scoliosis and back tenderness Skin: No active skin lesions and rashes Coagulation Studies Laboratory Tests Test 05/12/25 14:52 Prothrombin Time 10.4 SECONDS (9.0-12.0) INR International Normalized Ratio 1.0 INR Activated Partial Thromboplast Time 29 SECONDS (22-32) Coagulation Comments Assessment Assessment A 70-year-old male patient with a past medical history of ESRD on hemodialysis on Sunday, and Sunday, COPD on 5-6 L of oxygen and heart failure with preserved EF presents to the hospital with complaints of new onset worsening "shakes" of his hands and symptoms consistent with a UTI. He had a mildly positive urinalysis in the hospital and has been treated with IV Rocephin. The tremors in the hands a usually associated with a UTI and he is being observed for improvement in his symptoms with the antibiotic therapy. Dialysis will be continued while inpatient. Plan Plan # LUTI # ESRD on HD (Sunday, , Sunday) # normochromic normocytic anemia 05/17/2025: Patient is doing much better today after hemodialysis Blood cultures have remained negative Will still consult Dr. Bloom in a.m. Continue linezolid, day 2 05/16/2025: Urine culture showed Staphylococcus lugdunensis and urine C&S showed Kocuria kritnae sensitive for PO Linezolid and continue it Day 2. -Plan for BM Bx on coming Sunday05/15/2025: Urine culture shows staph lugdunensis which is sensitive for vancomycin, nephrology started p.o. linezolid and continue it, and blood culture show Gram-positive cocci. -stopped meropenem after day two -continue ESRD as scheduled for Q TTS, yesterday the patient had HD without complications along with 97148 units of Retacrit -continue iron therapy -[place] pathology Dr Cedeno stated that pt will be having the BM Bx. 05/14/2025: Continue HD as scheduled, he will be having the scheduled HD today. -nephrology is on board -pending flow cytometry, and ordered BM Bx. -will need to follow up with HemOnc in the outpatient setting -blood culture Gram-positive cocci in cluster, and urine culture showed Gram- positive cocci -follow up with the repeated blood culture -upgraded to IV meropenem (day 1) from ceftriaxone after day two 05/13/2025: Continue IV ceftriaxone which was downgraded to 1 g as per nephrology recommendation day two -continue scheduled ESRD on TTS -switch Protonix to famotidine which is less nephro toxic -continue calcium acetate for hyperphosphatemia -nephrology recommended for workup of mastocytosis and myelocytes workup and anemia including bone marrow biopsy and infection workup, we will send the patient to PCP for further workup in outpatient setting and possible referral to hemato oncology outpatient setting -given 1 unit of PRBC's four hemoglobin 6.9, continue Venofer as per Nephrology recommendation outpatient setting 05/12/2025:-his lowest creatinine was around three a year ago. -presented with creatinine 8.3 on admission, last time HD was on Sunday -UA show positive protein, leukocyte esterase, nitrite, TNTC WBC. 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 -please follow up with pending Labs (iron study, phosphorous, PTH, HBsAg etc) -given one time dose of IV 2 g ceftriaxone ER, followed by daily , adjust as per Urine C&S -abdomen and pelvis CT without IV contrast showed IMPRESSION: 1. Prominent inflammatory stranding adjacent to the bladder with associated wall thickening, likely correlating with reported clinical history of urinary tract infection. 2. Mild left hydronephrosis and hydroureter with no obstructing calculus. Possible partial obstruction at the ureterovesical junction due to the bladder wall thickening and inflammatory changes. Correlate with clinical findings. Ascending urinary tract infection also not excluded in the appropriate clinical setting as there is minimal stranding adjacent to the left ureter. # Possible Upper GI bleeding on ASA 05/17/2025: Hemoglobin has remained stable Continue current management Will add probiotics 05/16/2025: Continue p.o. pantoprazole 40 mg b.i.d. 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 Colonoscopy five years ago was unremarkable. The patient has been off anticoagulants and NSAIDs since December. -started IV Protonix drip -consulted with GI and appreciate it, recommended for outpatient colonoscopy and repeat EGD, to transplant PRBC's again to maintain hemoglobin>7, continue PPI, continue iron therapy. # COPD # Hx of CHFpEF 50-55% # history of AFib with CVR -medication reconciliation was done, continue appropriately. -DuoNeb q.4 hours as needed -continue AFib rate control medications amiodarone and carvedilol and has been off anticoagulants since December for GI bleeding. 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 [place]-five as needed Lines/tubes: PIV GI prophylaxis: famotidine Nutrition: Renal diet Prognosis: Guarded Disposition: Continue medical management including hemodialysis as scheduled, IV antibiotics, Protonix, bone marrow biopsy plan on Sunday. Pending PT evaluation for discharge planning Dheeraj Robertson MD Internal Medicine Resident PGY-1 Date of Service: May 17, 2025 Billing Provider: KANDI GIANG MD Common Visit Codes: [id number] INP/OBS CARE(HIGH) DHEERAJ JORGE May 17, 2025 16:46 KANDI GIANG MD May 19, 2025 15:43
[2025-05-17] MEDS: lactobacillus rhamnosus 10,000 MMU CELLS/CAPSULE PO SCH (19:22)
[2025-05-18] VITALS (9 sets, daily range): BP systolic 100–112; BP diastolic 49–52; PULSE 51–67; RESP 11–20; TEMP 97–97.6; O2SAT 91–96
[2025-05-18 08:42] LABS: BASOPHILS % (AUTO) 0.6 % (0-1); EOSINOPHILS # (AUTO) 0.4 X10'3 (0-0.9); HEMATOCRIT 26.6 % (42.0-52.0); HEMOGLOBIN 8.2 g/dl (14.0-17.9); LYMPHOCYTES # (AUTO) 1.1 X10'3 (1.1-4.8); LYMPHOCYTES % (AUTO) 24.2 % (21-51); MEAN CORPUSCULAR HGB CONC 30.8 g/dL (33.0-36.5); MEAN CORPUSCULAR VOLUME 87.8 FL (78-98); MEAN PLATELET VOLUME 6.2 FL (7.4-10.4); MONOCYTES # (AUTO) 0.9 X10'3 (0-0.9); MONOCYTES % (AUTO) 19.1 % (2-12); NEUTROPHILS # (AUTO) 2.2 X10'3 (1.8-7.7); NEUTROPHILS % (AUTO) 48.1 % (42-75); PLATELET COUNT 164 X10'3 (140-440); RED BLOOD COUNT 3.03 X10'6 (4.70-6.10); RED CELL DISTRIBUTION WIDTH 17.9 % (11.5-14.5); WHITE BLOOD COUNT 4.6 X10'3 (4.5-11.0)
--- NOTE | 2025-05-18 08:43 | PROGRESS NOTE ---
Progress Note Dictate Providers to CC ~ Antibiotic Ordered?: Yes Subjective Subjective Doing well, no specific complaints today, still receiving IV antibiotics for staph bacteremia, has been tolerating his regular dialysis well, last dialysis was on Sunday, he is scheduled for tomorrow Objective Vitals Vital Signs Date Time Temp Pulse Resp B/P (MAP) Pulse Ox O2 Delivery O2 Flow Rate FiO2 05/18/25 06:00 60 05/18/25 03:12 20 Bi-pap 40 05/18/25 03:06 92 05/18/25 02:00 97.3 112/49 (70) 05/17/25 22:00 5.0 General: Well appearing, NAD, appears comfortable Neck: No JVD, or bruits CV: RRR w/o murmur, pulses 2+ symmetrical, no edema Pulm: CTA Bilateral no wheezes Abd: + BS, NT Musc: Ambulates without assistance, strength 5/5 in all major muscle groups Lab Results: 05/17/25 0609 05/17/25 0609 Coagulation Studies Laboratory Tests Test 05/12/25 14:52 Prothrombin Time 10.4 SECONDS (9.0-12.0) INR International Normalized Ratio 1.0 INR Activated Partial Thromboplast Time 29 SECONDS (22-32) Coagulation Comments Problem\Assessment\Plan Problems/Diagnosis: (1) Sepsis Assessment & Plan: Staph A in blood stream, Kocuria kristinae in blood stream and Staph ludgenesis in urine, Linezolid (2) Metabolic encephalopathy Assessment & Plan: Improved since admission, I would expect continued improvement with IV antibiotic and treatment of his bacteremia and UTI (3) End-stage renal disease on hemodialysis Assessment & Plan: Hemodialysis performed on Sunday, next Alysis scheduled for tomorrow if he is here in the hospital we will plan to do dialysis on his regular Sunday schedule I have reviewed, all relevent chart notes, nurses notes, labs for this prescription iHD 3 hours Access TDC Na 140 K 3 HCO3 35 Ca 2.5 UF 1 as tolerated Albumin N Mannitol N CHICHO 10K units with dialysis Sepsis Screening Skin Color: Normal Problem Qualifiers (1) Sepsis: ALLEN CHANG III DO May 18, 2025 08:43
[2025-05-18 09:02] LABS: ALANINE AMINOTRANSFERASE 8 U/L (12-78); ALBUMIN 2.4 G/DL (3.4-5.0); ALBUMIN/GLOBULIN RATIO 0.7 (1.1-1.5); ALKALINE PHOSPHATASE 82 IU/L (46-116); ANION GAP 5 (8-16); ASPARTATE AMINO TRANSFERASE 11 U/L (10-37); BILIRUBIN,TOTAL 0.4 MG/DL (0.1-1.0); BLOOD UREA NITROGEN 29 MG/DL (7-18); BUN/CREATININE RATIO 3.9 (10.0-20.0); CALCIUM 8.8 MG/DL (8.5-10.1); CHLORIDE 97 MMOL/L (99-107); CREATININE 7.45 MG/DL (0.60-1.10); GLUCOSE 80 MG/DL (70-104); POTASSIUM 4.3 MMOL/L (3.5-5.1); SODIUM 130 MMOL/L (135-145); eCRCL 9 ML/MIN; eGFR 7 ML/MIN
[2025-05-18] MEDS: vancomycin/NS 1 GM ADD-VANTAGE 250 ML IV ONE (11:35)
--- NOTE | 2025-05-18 12:14 | PROGRESS NOTE ---
DATE: 05/18/2025 DICTATING PHYSICIAN: Barry Pantoja MD HISTORY OF PRESENT ILLNESS: I am seeing the patient at the request of Dr. Troy for evaluation of a urinary tract infection. The patient is a 70-year-old male with end-stage renal disease on hemodialysis who is well known to me with a history of multiple hospitalizations. I believe I last saw him in March. He has been in here at least one other time since I saw him. He typically comes in with altered mental status. He states that he is doing better and he may be going home soon. He also told me that he may be getting a bone marrow biopsy, although it is not entirely clear to me why that would be needed. He has been receiving linezolid for treatment of a urinary tract infection due to staphylococcus lugdunensis, although the colony count was low at 25-50,000. His blood culture appears to be contaminated. He is not having any fever. His white blood cell count is normal. PHYSICAL EXAMINATION: VITAL SIGNS: He is afebrile with stable vital signs. GENERAL: He is a pleasant elderly male sitting up in bed looking stable. LUNGS: Lungs are clear to auscultation bilaterally. HEART: Regular rate and rhythm. ABDOMEN: Abdomen is obese, soft, and nontender. EXTREMITIES: No significant edema. He does have a left upper extremity AV fistula. LABORATORY DATA: His white blood cell count is 4600, hemoglobin 8.2, platelets 164,000. Urinalysis when he came in showed white blood cells too numerous to count. Once again, urine cultures grew Staphylococcus lugdunensis with a low colony count. Blood culture grew Kocuria consistent with contamination. IMAGING: CT of the abdomen and pelvis did show some bladder wall thickening with some inflammatory stranding. He had mild left hydronephrosis and hydroureter. ASSESSMENT: * Recurrent urinary tract infection. He does have a history of ESBL Klebsiella, but none over the past year. He also has a history of urinary incontinence and nephrolithiasis. Staphylococcus lugdunensis was identified on culture with low colony count. * End-stage renal disease, on hemodialysis. * History of C. difficile infection. PLAN: Linezolid will be discontinued. I am going to give him a g of IV vancomycin today. I should be able to finish off treatment of his urinary tract infection. I suppose he will be going home soon, possibly after a bone marrow biopsy. Barry Pantoja MD TID: [id number] RECEIPT: [id number] CLAUDE/YVON
[2025-05-18] MEDS ORDERED: ASPI81TA52 PO (14:30)
--- NOTE | 2025-05-18 14:34 | DISCHARGE SUMMARY-Residence ---
Discharge Summary Providers to CC Resident Creating Document: REINALDO SMITH, RES ~ Discharge Summary Admission Diagnosis: UTI with BRENDA on HD Hospital Course DATE OF ADMISSION: 05/12/2025 DATE OF DISCHARGE: 05/18/2025 Discharge Diagnosis\\Comment: # LUTI, low colonized with Staphylococcus lugdunensis # ESRD on HemoDialysis (Sunday, , Sunday) # Hx of ESRL UTIs and C diff infection # normochromic normocytic anemia from possible CKD and anemia of chronic disease # Upper GI bleeding on high dose ASA # COPD # Hx of CHFpEF 50-55% # history of AFib with Controlled Ventricular rate # right Charcot joints Operations\\Procedures: Bone marrow biopsy Consultants: Dr Doe and Dr Perez, Nephrology Dr Pantoja, ID Dr Cedeno, Pathology Dr Evans, GI Complications: None Condition on DC: Stable New Medications: Aspirin (Aspirin EC) 81 Mg Tablet.dr 1 TAB PO DAILY for 30 Days, #30 TAB Continued Medications: Amiodarone HCl (Amiodarone HCl) 200 Mg Tablet 1 TAB PO BID, TAB 0 Refills Calcium Acetate (Calcium Acetate) 667 Mg Capsule 2 CAP PO TID Carvedilol* (Coreg*) 12.5 Mg Tablet 0.5 TABLET PO BID, TABLET Diazepam (Diazepam) 5 Mg Tablet 5 MG PO DAILY PRN for anxiety for 30 Days, #60 TAB 0 Refills Duloxetine HCl (Duloxetine HCl) 60 Mg Capsule.dr 60 MG PO DAILY for 30 Days, #30 CAP Ferrous Sulfate (Ferrous Sulfate) 325 Mg (65 Mg Iron) Tablet 325 MG PO DAILY for 30 Days, #30 TAB Fluticasone Propionate (Fluticasone Propionate) 50 Mcg/Actuation [place].susp 2 SPRAYS BOTHNARES DAILY, #16 GM 0 Refills Fluticasone/Umeclidin/Vilanter (Trelegy Ellipta 100-62.5-25) 100-62.5 Blst.w.dev 1 PUFFS INH QAM Folic Acid/Vitamin B Comp W-C (Dialyvite Tablet) Unknown Strength Tablet 1 TAB PO DAILY for 30 Days, #30 TAB 0 Refills Gabapentin (Gabapentin) 600 Mg Tablet 0.5 TAB PO HS for 30 Days, #90 TAB 0 Refills Midodrine Hcl (Midodrine Hcl) 10 Mg Tablet 1 TAB PO DAILY, TAB 0 Refills Modafinil (Modafinil) 200 Mg Tablet 1 TAB PO DAILY PRN for ED Multivitamin (Multi Vitamin Daily) 1 Each Tablet 1 TAB PO DAILY for 30 Days, #30 TAB 0 Refills [place]-3/Dha/Epa/Fish Oil (Fish Oil 1,000 Mg Ec Softgel) 300 Mg-1,000 Mg Capsule.dr 1 CAP PO Q12H for 30 Days, #60 CAP 0 Refills Omeprazole (Prilosec) 40 Mg Capsule 2 CAP PO BID, CAP Oxycodone HCl/Acetaminophen (Percocet 10-325 mg Tablet) 10 Mg-325 Mg Tablet 1 TAB PO Q8H PRN for pain MDD 6 Tablet(s), TAB Tamsulosin Hcl* (Flomax*) 0.4 Mg Cap.sr.24h 1 CAP PO DAILY for 30 Days, #30 CAP Discontinued Medications: Aspirin (Aspirin) 325 Mg Tablet 1 TAB PO DAILY, TAB Discharge Summary: A 70-year-old male patient with a past medical history of ESRD on hemodialysis on Sunday, and Sunday, COPD on 5-6 L of oxygen and heart failure with preserved EF presents to the hospital with complaints of new onset worsening "shakes" of his hands and symptoms consistent with a UTI. He had a mildly positive urinalysis in the hospital and has been treated with IV Rocephin. The tremors in the hands a usually associated with a UTI and he is being observed for improvement in his symptoms with the antibiotic therapy. Dialysis was continued while inpatient. Hospital course: Patient was hospitalized for his possible UTI and hemodialysis with further investigation and management. He presented with creatinine 8.3 on admission, last time HD was on last Sunday and he needed to be hemodialyzed on day of admission. UA show positive protein, leukocyte esterase, nitrite, TNTC WBC. Access Services Representative Nephrology was consulted and promptly initiated hemodialysis on admission day with IV albumin, Epoetin Jesse and iron at HD. His abdomen and pelvis CT without IV contrast showed IMPRESSION: 1. Prominent inflammatory stranding adjacent to the bladder with associated wall thickening, likely correlating with reported clinical history of urinary tract infection. 2. Mild left hydronephrosis and hydroureter with no obstructing calculus. Possible partial obstruction at the ureterovesical junction due to the bladder wall thickening and inflammatory changes. Correlate with clinical findings. Ascending urinary tract infection also not excluded in the appropriate clinical setting as there is minimal stranding adjacent to the left ureter. He was given one time dose of IV 2 g ceftriaxone ER, followed by daily which was downgraded to 1G with renal dosing for two days, and siwtched to IV Meropenem for another two days. He developed low colonized Urine C&S with Staphylococcus lugdunensis which is sensitive for Vancomycin, and positive for the possible blood culture contaminated with Kocuria kristinae for which he was treated with PO Linezolid for five days. He was consulted with Infectious disease specialized stated that possible blood culture contamination which should be treated with only one time dose of IV Vancomycin which was completed before he was discharge to his home today. 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 His high dose ASA 325 mg was stopped and started IV Protonix after consulted with GI Dr Evans for his possible GI bleeding. GI recommended for the possible outpatient procedures EGD and colonoscopy. He also was given one time PRBC transfusion for his low Hb 6.9. He has stopped Eliquis and NSAIDs since December for Upper GI bleeding Hx with [id number] socre is 3. His DVT prophylaxis was achieved with SCDs until fully ambulatory and pain was controlled well with PO norco 5. Dr Cedeno, pathologist took a bone marrow biopsy today before he was discharged without having any complications. All of his questions and concerns were addressed with the best knowledge of our team before he was discharged home. PT was cleared for him with a home with home health. All of his vitals were reviewed with the WBCs 4.6, hemoglobin 8.2, hematocrit 26.6, platelet count 164, serum sodium 130, potassium 4.3, chloride 97, BUN 29, creatinine 7.45, EGFR seven, RBS 80, PTH 39, serum calcium 8.8, total protein six, vitamin B12 960 and hepatitis-Bs antigen negative and HIV one and two antibody rapid test nonreactive. All of his vitals were stable at the moment with temp 97.6 F, FL 60/minute, RR 15/minute, BP 104/55 mm Hg, pulse oximetry 91% on 4 L nasal cannula. On exam, General: obese, Well alert, well oriented, not confused, not agitated, not in acute distress, well cooperated during the physical. HEENT: Conjunctive are pale, sclerae clear, no icterus, pupil is equal in both sides, reactive to light, no ear discharge, no pharyngeal erythema or an edema, mouth and lips are slightly dry. Neck: Supple, no JVD, no lymphadenopathy and thyromegaly. 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: No focal neurological deficits, no motor and sensory weakness in all 4 extremities, could move all 4 extremities Musculoskeletal: No joint swelling, deformities, inflammations, and no scoliosis and back tenderness Skin: No active skin lesions and rashes Discharge instructions: -please return to ER for emergency conditions -please follow up with PCP, Nephrology and Hematology for further management including CBC CMP procalcitonin ESR rechecked, follow up with bone marrow biopsy results which might need to be transferred to Hematology from PCP, nephrology follow up for hemodialysis instructions, and CKD/ESRD management. -please proceed with regular hemodialysis schedules( Sunday, , and Sunday) -we reduced the dosage of aspirin from 325 to 81 mg daily with daily released in the setting of upper GI bleeding for which you should continue taking p.o. omeprazole 40 mg twice daily for a month followed by once daily as per PCP monitoring and management. -please continue with home health care including physical therapy, occupational therapy, and regular exercises. Resident MD attestation: Patient was seen, examined and discussed with attending MD, Dr. Woodrow SMITH MD Internal Medicine Resident, PGY2 [facility] *Problems/Diagnosis: (1) Metabolic encephalopathy Status: Resolved (2) End-stage renal disease on hemodialysis Status: Chronic Total Time Spent on D/C: > 30 Minutes Date of Service: May 18, 2025 Billing Provider: KANDI GIANG MD Common Visit Codes: 36475-SNP/OBS DISCH DAY >30min REINALDO SMITH, KRISHNA May 18, 2025 14:34 KANDI GIANG MD May 19, 2025 15:43
[2025-05-19] MEDS ORDERED: heparin 1,000 units/ml 10ml inj HE ONE ×2 (08:00)
[2025-05-19] MEDS ORDERED: normal saline 1000ml 100 ML IV PRN (08:00)
[2025-05-19] MEDS ORDERED: EPOETIN ALFA-EPBX 20,000 UNIT/ML 1 ML MDV IV ONE (08:00)
== END 2025-05-18 16:27 | disposition home health service (06) | DRG 689 ==
LOC: ER 10:09 → ED HOLD 13:36 → PCU 3S 15:31
PROVIDERS: ADMIT Internal Medicine; ATTEND Internal Medicine
PROC: 5A1D70Z Performance of Urinary Filtration, Intermittent, Less than 6 Hours Per Day (ICD-10-PCS; 2025-05-12)
PROC: 30233N1 Transfusion of Nonautologous Red Blood Cells into Peripheral Vein, Percutaneous Approach (ICD-10-PCS; principal; 2025-05-13)
PROC: 5A1D70Z Performance of Urinary Filtration, Intermittent, Less than 6 Hours Per Day (ICD-10-PCS; 2025-05-14)
PROC: 5A1D70Z Performance of Urinary Filtration, Intermittent, Less than 6 Hours Per Day (ICD-10-PCS; 2025-05-16)
PROC: 5A09357 Assistance with Respiratory Ventilation, Less than 24 Consecutive Hours, Continuous Positive Airway Pressure (ICD-10-PCS; 2025-05-17)
PROC: 5A09357 Assistance with Respiratory Ventilation, Less than 24 Consecutive Hours, Continuous Positive Airway Pressure (ICD-10-PCS; 2025-05-18)
DX: N39.0 Urinary tract infection, site not specified (principal); G93.41 Metabolic encephalopathy; N18.6 End stage renal disease; J96.91 Respiratory failure, unspecified with hypoxia; K92.2 Gastrointestinal hemorrhage, unspecified; I13.2 Hypertensive heart and chronic kidney disease with heart failure and with stage 5 chronic kidney disease, or end stage renal disease; N17.9 Acute kidney failure, unspecified; I50.32 Chronic diastolic (congestive) heart failure; D47.09 Other mast cell neoplasms of uncertain behavior; B95.7 Other staphylococcus as the cause of diseases classified elsewhere; E11.22 Type 2 diabetes mellitus with diabetic chronic kidney disease; E11.610 Type 2 diabetes mellitus with diabetic neuropathic arthropathy; I48.91 Unspecified atrial fibrillation; J44.9 Chronic obstructive pulmonary disease, unspecified; G89.29 Other chronic pain; E83.39 Other disorders of phosphorus metabolism; D63.1 Anemia in chronic kidney disease; K21.9 Gastro-esophageal reflux disease without esophagitis; Z80.3 Family history of malignant neoplasm of breast; Z86.19 Personal history of other infectious and parasitic diseases; Z86.73 Personal history of transient ischemic attack (TIA), and cerebral infarction without residual deficits; Z87.440 Personal history of urinary (tract) infections; Z87.442 Personal history of urinary calculi; Z87.891 Personal history of nicotine dependence; Z90.49 Acquired absence of other specified parts of digestive tract; Z99.2 Dependence on renal dialysis; Z91.041 Radiographic dye allergy status; Z79.82 Long term (current) use of aspirin
CPT/HCPCS: 36415; 36430; 36600; 74176; 80048; 80053; 81001; 82272; 82607; 82728; 82803; 83540; 83550; 83605; 83735; 83970; 84100; 84145; 85007; 85018; 85025; 85610; 85730; 85999; 86703; 86885; 86900; 86901; 86920; 87040; 87077; 87081; 87088; 87186; 87340; 88184; 88185; 94640; 94760; 96365; 97110; 97161; 97530; 99285; A4615; A6213; A6250; A6258; A6449; A6590; C1758; E1594; G0257; G0378; J0696; J1644; J1756; J2003; J2020; J2185; J2405; J2470; J3370; J7030; J7040; J7050; P9016; P9047; Q4081

== ENCOUNTER 2025-06-19 15:09 | Outpatient (CLI) | payer BC, MEDICARE ==
[~2025-06-19 15:09] MED LIST changes: -[UNRECOGNIZED DRUG - CODE] PO
--- NOTE | 2025-06-19 19:29 | RADIOLOGY REPORT ---
EXAM: MR MRI LOWER EXTREMITY RIGHT HISTORY: PAIN IN RIGHT KNEE COMPARISON: MR MRI LOWER EXTREMITY RIGHT on DOS: 09/27/23 TECHNIQUE: Multiplanar, multisequence imaging of the right knee was performed without contrast FINDINGS: MEDIAL COMPARTMENT: Question possible inconspicuous inner 1/3 radial type tear of the posterior horn No focal chondrosis or subchondral edema. LATERAL COMPARTMENT: Intact lateral meniscus. No focal chondrosis or subchondral edema. PATELLOFEMORAL COMPARTMENT: Question partial-thickness chondrosis of the median ridge with trace unde rlying subchondral edema. CRUCIATE LIGAMENTS: Intact anterior and posterior cruciate ligaments. MEDIAL SUPPORTING STRUCTURES: Intact medial collateral ligament. LATERAL SUPPORTING STRUCTURES: Intact iliotibial band, lateral capsular ligament, fibular collateral ligament, popliteus, and biceps femoris tendons EXTENSOR MECHANISM: Intact JOINT SPACE/FLUID: Small knee joint effusion. Small Wise's cyst. BONES: Sagittally oriented nondisplaced fracture with prominent bone marrow edema anterior medial fem oral condyle epicondyle with slight overlying cortical contour irregularity (4-16) MUSCLES: Normal in signal intensity and morphology NEUROVASCULAR: Unremarkable OTHER: Surrounding subcutaneous tissue edema without drainable fluid collection IMPRESSION: 1. Sagittally oriented nondisplaced fracture with prominent bone marrow edema anterior medial femoral condyle epicondyle with slight overlying cortical contour irregularity. 2. Small knee joint effusion. Small Wise's cyst. 3. Question possible inconspicuous inner 1/3 radial type tear of the posterior horn
== END 2025-06-19 23:59 | disposition home or self-care (01) ==
LOC: MRI02 15:09
PROVIDERS: ATTEND Internal Medicine
DX: M25.461 Effusion, right knee (principal); M25.561 Pain in right knee; M71.21 Synovial cyst of popliteal space [Baker], right knee
CPT/HCPCS: 73721

== ENCOUNTER 2025-08-09 16:16 | Inpatient (IN) | payer BC, MEDICARE ==
[~2025-08-09] VITALS: Ht 175.3 cm; Wt 118.2 kg
--- NOTE | 2025-08-09 16:58 | Physician Documentation ---
History of Present Illness ~ Chief Complaint: Confused Stated Complaint: CONFUSED Time Seen by MD: 16:32 Primary Medical Doctor: GEORGES HPI 70-year-old male, history of end-stage renal disease on dialysis, presenting with confusion. History is primarily obtained from the patient's family/street sweeper. They report that over the past day he has been acting more confused, weaker than normal, and having more spasms in his extremities than normal. They say that this is always what happens when he gets a urinary tract infection. No reported fevers. No falls or head injury. The patient denies any chest pain, shortness of breath, abdominal pain, dysuria, diarrhea or other associated symptoms. He had dialysis yesterday. Medication Reconciliation Allergies: Coded Allergies: Iodinated Contrast Media (Verified Allergy, Severe, SOB, DIAPHORETIC, ) bee venom protein (honey bee) (Verified Allergy, Unknown, 08/09/25) iodine (Verified Adverse Reaction, Intermediate, SEE COMMENTS, 08/09/25) 1998 post ivp- pt c/o chest and abd pain- to er- no treatment needed- resolved. Scheduled Amiodarone HCl (Amiodarone HCl), 1 TAB PO BID, (Reported) Aspirin (Aspir 81), 1 TAB PO DAILY, (Reported) Calcium Acetate (Calcium Acetate), 2 CAP PO TID, (Reported) Carvedilol* (Coreg*), 0.5 TABLET PO BID, (Reported) Duloxetine HCl (Duloxetine HCl), 60 MG PO DAILY, (Reported) Fluticasone Propionate (Fluticasone Propionate), 2 SPRAYS BOTHNARES DAILY, (Reported) Fluticasone/Umeclidin/Vilanter (Trelegy Ellipta 100-62.5-25), 1 PUFFS INH QAM, (Reported) Folic Acid/Vitamin B Comp W-C (Dialyvite Tablet), 1 TAB PO DAILY, (Reported) Gabapentin (Gabapentin), 0.5 TAB PO HS, (Reported) Midodrine Hcl (Midodrine Hcl), 1 TAB PO DAILY, (Reported) Multivitamin (Multi Vitamin Daily), 1 TAB PO DAILY, (Reported) [place]-3/Dha/Epa/Fish Oil (Fish Oil 1,000 Mg Ec Softgel), 1 CAP PO Q12H, (Reported) Omeprazole (Prilosec), 2 CAP PO BID, (Reported) Tamsulosin Hcl* (Flomax*), 1 CAP PO DAILY, (Reported) Scheduled PRN Diazepam (Diazepam), 5 MG PO DAILY PRN for anxiety, (Reported) Modafinil (Modafinil), 1 TAB PO DAILY PRN for ED, (Reported) Oxycodone HCl/Acetaminophen (Percocet 10-325 mg Tablet), 1 TAB PO Q8H PRN for p ain, (Reported) Discontinued Medications Ferrous Sulfate (Ferrous Sulfate), 325 MG PO DAILY Discontinued Reason: patient no longer taking Past Medical History Past Medical History: Atrial Fibrillation, Congestive Heart Failure, Hypertension, COPD, Gastritis, GERD, Acute Kidney Injury, Chronic Kidney Disease, Dialysis, Kidney Stones, UTI, Chronic Back Pain, Bipolar, Depression Past Surgical History: appendectomy, cholecystectomy, orthopedic surgeries, other Other Past Surgical History: Dental surgery. Av fistula placement Patient History: (DM Type 2) Diabetes mellitus type 2 MOTHER ( ), , Age: 68, Cause: of unknown cause FH: breast cancer MOTHER ( ), , Age: 68, Cause: of unknown cause FH: stroke FATHER, , Age: 69, Cause: of unknown cause Alcohol Use: None Drug Use: none Lives with: S/O Lives In: Home Review of Systems Constitutional: Reports: weakness; Denies: fever Neurological: Reports: cognitive dysfunction Physical Exam Vital Signs: Temperature: 101.6, Source: Temporal, Heart Rate: 84, Respiratory Rate: 24, BP: 122/66, Pulse Oximetry: 93, Weight: 118.180 Oxygen Flow Rate: 3.0 Physical Exam General: This is a chronically ill-appearing older man, falls asleep easily, family at bedside HEENT: Atraumatic, oropharynx appears dry Heart: Regular rate and rhythm, normal-appearing peripheral perfusion Lungs: Diminished breath sounds bilateral, normal work of breathing, normal oxygen saturation on room air Abdomen: Soft, nondistended, nontender all quadrants Neuro: The patient appears to easily fall asleep, but does wake up to voice. He follows simple commands. He has trouble with some history questions. He does have some tremor-like movements in his extremities Progress Results/Orders Results/Orders Orders - DOMINGO WAGNER MD Cult Urine + [address] (08/09/25 20:26) Completed Orders - DOMINGO WAGNER MD Cbc/Diff (08/09/25 16:33) CMP (08/09/25 16:33) Ua W/Microscopic, Cult If Ind (08/09/25 20:08) Hgb A1c (08/09/25 16:49) MG (08/09/25 16:49) PBNP (08/09/25 16:49) TSH (08/09/25 16:49) Vital Signs 08/09/25 08/09/25 08/09/25 08/09/25 16:18 16:53 18:39 18:40 Temp 101.6 Pulse 84 84 83 Resp 16 24 24 16 B/P (MAP) 87/49 122/66 (84) 145/61 (89) Pulse Ox 99 93 93 O2 Flow Rate 0 3.0 08/09/25 08/09/25 08/09/25 19:03 19:04 20:51 Temp 99.7 Pulse 84 82 Resp 18 18 16 B/P (MAP) 132/71 (91) 131/66 (87) Pulse Ox 94 94 O2 Flow Rate 3.0 3.0 Laboratory Tests Test 08/09/25 16:49 08/09/25 20:08 White Blood Count 10.0 Red Blood Count 3.75 L Hemoglobin 10.4 L Hematocrit 32.9 L Mean Corpuscular Volume 87.7 Mean Corpuscular Hemoglobin 27.7 Mean Corpuscular Hemoglobin Concent 31.5 L Red Cell Distribution Width 17.1 H Platelet Count 145 Mean Platelet Volume 6.4 L Neutrophils (%) (Auto) 85.5 H Lymphocytes (%) (Auto) 5.0 L Monocytes (%) (Auto) 8.9 Eosinophils (%) (Auto) 0.3 Basophils (%) (Auto) 0.3 Neutrophils # (Auto) 8.5 H Lymphocytes # (Auto) 0.5 L Monocytes # (Auto) 0.9 Eosinophils # (Auto) 0.0 Basophils # (Auto) 0.0 CBC Comment Sodium Level 137 Potassium Level 4.3 Chloride Level 97 L Carbon Dioxide Level 29.7 Anion Gap 10 Blood Urea Nitrogen 45 H Creatinine 6.85 H Estimated GFR/1.73 m2 8 BUN/Creatinine Ratio 6.6 L Glucose Level 90 Hemoglobin A1c 4.4 L Calcium Level 8.8 Magnesium Level 2.1 Total Bilirubin 0.4 Aspartate Amino Transf (AST/SGOT) 10 Alanine Aminotransferase (ALT/SGPT) < 6 L Alkaline Phosphatase 88 Pro-B-Type Natriuretic Peptide 2791 H Total Protein 7.0 Albumin 2.7 L Globulin 4.3 Albumin/Globulin Ratio 0.6 L Thyroid Stimulating Hormone (TSH) 1.54 Chemistry Comments Urine Specimen Description Non-specified Urine Color Yellow Urine Clarity Cloudy Urine pH 8.0 Urine Specific [place] 1.020 Urine Protein >=300 H Urine Glucose (UA) Negative Urine Ketones Negative Urine Occult Blood Moderate H Urine Nitrite Positive H Urine Bilirubin Negative Urine Urobilinogen 0.2 Urine Leukocyte Esterase Large H Urine RBC 10-20 Urine WBC Tntc H Urine Squamous Epithelial Cells None seen Urine Bacteria 2+ Urine Culture Indicated Indicated Volume Urine Centrifuged 10 ml Urine Comment Microbiology Date/Time Source Procedure Growth Status 08/09/25 20:26 Urine Straight Cath Urine Culture - Preliminary Gram Positive Cocci Resulted Medical Decision Making Differential Dx:Considerations: Include: dehydration, DKA, encephalopathy, hypoglycemia, hyponatremia, drug overdose, encephalopathy, infection - sepsis, infection - UTI Additional Information The patient presents with confusion and weakness, similar to past urinary tract infection episodes. He otherwise has no acute findings on exam including no traumatic findings, no fever, no findings to suggest pneumonia or other dangerous lung process. Labs without acute dangerous findings, are consistent with known end-stage renal disease. Pending urinalysis. The patient was signed out at shift change, pending urinalysis and likely admission. Departure Impression: Primary Impression: Encephalopathy acute Referrals: NO PRIMARY CARE PROVIDER (PCP) Signature Scribe Signature: na Attestation: DOMINGO Menendez MD Aug 09, 2025 16:57
[2025-08-09 17:01] LABS: MEAN PLATELET VOLUME 6.4 FL (7.4-10.4); RED CELL DISTRIBUTION WIDTH 17.1 % (11.5-14.5)
[2025-08-09 17:13] LABS: CREATININE 6.85 MG/DL (0.60-1.10); TOTAL CARBON DIOXIDE 29.7 MMOL/L (24-32); eCRCL 10 ML/MIN; eGFR 8 ML/MIN
[2025-08-09 20:14] LABS: LEUKOCYTE ESTERASE ,URINE LARGE (Neg); NITRITES, URINE POSITIVE (Neg); OCCULT BLOOD,URINE MODERATE (Neg)
[2025-08-09 20:15] LABS: UA COLLECTION TYPE NON-SPECIFIED
[2025-08-09 20:26] LABS: SQUAMOUS EPITHELIAL CELL,UR NONE SEEN /LPF (FEW)
[2025-08-09] MEDS: CefTRIAXone 2gm/D5W 50ml BAG 50 ML IV ONE (21:07)
[2025-08-09] MEDS ORDERED: magnesium sulf-water 2g/50mL 50 ML IV PRN (22:35)
[2025-08-09] MEDS ORDERED: magnesium Cl slow-release 64mg tablet PO PRN (22:35)
[2025-08-09] MEDS ORDERED: magnesium sulf-water 4G/100mL 100 ML IV PRN (22:35)
[2025-08-09] MEDS ORDERED: magnesium hydroxide 30ml (MOM) UD suspension PO PRN (22:35)
[2025-08-09] MEDS ORDERED: ondansetron/PF 4mg/2ml inj IV PRN (22:35)
[2025-08-09] MEDS ORDERED: potassium Cl 20 mEq SR tablet PO PRN ×2 (22:35)
[2025-08-09] MEDS ORDERED: mag hydrox/Alum hydrox/simeth 30ml oral suspension PO PRN (22:35)
[2025-08-09] MEDS ORDERED: potassium Cl 40MEQ/1/2NS 520ml 520 ML IV PRN (22:35)
--- NOTE | 2025-08-09 22:53 | HISTORY AND PHYSICAL-Residence ---
History & Physical Providers to CC Resident Creating Document: DOM TAYLOR, RES ~ History of Present Illness Primary Medical Doctor: GEORGES Reason for Admit\Complaint: Encephalopathy History of Present Illness This is a 70-year-old male with past medical history of Charcot's disease (wheelchair bound),COPD on 4 L of oxygen, atrial fibrillation, CHFpEF, hypertension, GERD, chronic back pain ESRD on dialysis TTS, urinary retention( straight caths himself), recurrent UTIs, was brought to the ED by EMS for confusion. While I was evaluating the patient was awake, alert, oriented to place, himself but not to time. Family was not present at the bedside. He reported that he was stuck in the house and was brought here. He did answer a few questions but was falling asleep. According to the ER note, the family reported that the patient was acting more confused, weaker than normal and having more spasm in his extremities since one day. According to the family the patient presents this way when he gets a UTI. The patient denied any fever, burning sensation in the urine. Health Spa Manager is Dr. Doe Back Tender Insulation Board is Dr. Barahona Allergies: Coded Allergies: Iodinated Contrast Media (Verified Allergy, Severe, SOB, DIAPHORETIC, 08/09/25) bee venom protein (honey bee) (Verified Allergy, Unknown, 08/09/25) iodine (Verified Adverse Reaction, Intermediate, SEE COMMENTS, 08/09/25) 1998 post ivp- pt c/o chest and abd pain- to er- no treatment needed- resolved. Home Medications Home Medications Active Ferrous Sulfate 325 Mg (65 Mg Iron) Tablet 325 Mg PO DAILY 30 Days Reported Fluticasone Propionate 50 Mcg/Actuation [place].susp 2 Sprays BOTHNARES DAILY Prilosec (Omeprazole) 40 Mg Capsule 2 Cap PO BID Midodrine Hcl 10 Mg Tablet 1 Tab PO DAILY Amiodarone HCl 200 Mg Tablet 1 Tab PO BID Gabapentin 600 Mg Tablet 0.5 Tab PO HS 30 Days Flomax* (Tamsulosin HCl) 0.4 Mg Cap.sr.24h 1 Cap PO DAILY 30 Days Coreg* (Carvedilol) 12.5 Mg Tablet 0.5 Tablet PO BID Multi Vitamin Daily (Multivitamin) 1 Each Tablet 1 Tab PO DAILY 30 Days Fish Oil 1,000 Mg Ec Softgel ([place]-3/Dha/Epa/Fish Oil) 300 Mg-1,000 Mg Capsule. 1 Cap PO Q12H 30 Days Dialyvite Tablet (Folic Acid/Vitamin B Comp W-C) Unknown Strength Tablet 1 Tab PO DAILY 30 Days Modafinil 200 Mg Tablet 1 Tab PO DAILY PRN Trelegy Ellipta 100-62.5-25 (Fluticasone/Umeclidin/Vilanter) 100-62.5 Blst.w.dev 1 Puffs INH QAM Calcium Acetate 667 Mg Capsule 2 Cap PO TID Diazepam 5 Mg Tablet 5 Mg PO DAILY PRN 30 Days Percocet 10-325 mg Tablet (Oxycodone HCl/Acetaminophen) 10 Mg-325 Mg Tablet 1 Tab PO Q8H PRN MDD 6 Tablet(s) Duloxetine HCl 60 Mg Capsule.dr 60 Mg PO DAILY 30 Days Past Medical History Past Medical History COPD, chronic respiratory failure on home oxygen at 4 L/min ESRD on HD, TTS Chronic anemia History of multiple UTIs MDRO Klebsiella Chronic back pain Heart failure with preserved ejection fraction Obesity ?[place] History of renal stones Tardive dyskinesia Past Surgical History Surgical History Comment Appendectomy Cholecystectomy Orthopedic surgeries Family History Family History: (DM Type 2) Diabetes mellitus type 2 MOTHER ( ), , Age: 68, Cause: of unknown cause FH: breast cancer MOTHER ( ), , Age: 68, Cause: of unknown cause FH: stroke FATHER, , Age: 69, Cause: of unknown cause Past Social History Social History Comment Uses oxygen at home, uses wheelchair for ambulation, follows up with primary care at [facility] [place]. Lives with his Ex-smoker, quit smoking in 2014 4 packs per day for 50 years- 200 pack years Occasional alcohol use Denies illicit drug use Does not smoke marijuana Smoking: Non-Smoker, Cigarettes Alcohol Use: None Drug Use: None Lives with: S/O Lives In: Home ROS Constitutional: Reports: weakness; Denies: fever Eyes: Denies: no symptoms reported, see HPI, pain, discharge, blurred vision, double vision, itching, photophobia, redness, tearing, other ENT: Denies: no symptoms reported, see HPI, ear pain, ear bleeding, ear discharge, hearing loss, ear ringing, nose pain, nose bleeding, nose congestion, nose discharge, throat pain, throat swelling, voice change, mouth pain, mouth bleeding, mouth swelling, other Respiratory: Denies: no symptoms reported, see HPI, cough, orthopnea, shortness of breath, SOB with exertion, SOB at rest, stridor, wheezing, hemoptysis, pain with breathing, other Cardiovascular: Denies: no symptoms reported, see HPI, chest pain, left arm pain, diaphoresis, lightheadedness, syncope, edema, palpitations, irregular heart rate, other Gastrointestinal: Denies: no symptoms reported, see HPI, abdomen distended, abdominal pain, nausea, vomiting, diarrhea, constipated, melena, hematemesis, hematochezia, rectal bleeding, rectal pain, dysphagia, poor appetite, poor fluid intake, other Genitourinary: Denies: no symptoms reported, see HPI, burning, discharge, dysuria, frequency, flank pain, hematuria, incontinence, pain, decreased urine output, urgency, other Neurological: Reports: cognitive dysfunction Musculoskeletal: Denies: no symptoms reported, see HPI, pain, swelling, back pain, gout, joint pain, joint swelling, muscle pain, muscle swelling, muscle stiffness, neck pain, other Exam Vitals: Vital Signs Date Time Temp Pulse Resp B/P (MAP) Pulse Ox O2 Delivery O2 Flow Rate FiO2 08/09/25 20:51 82 16 131/66 (87) 94 3.0 08/09/25 19:03 99.7 General: Elderly male, altered, Head: Normocephalic with an atraumatic Eyes: Pupils- 3mm, reacting to light, conjunctiva- anicteric Nose and throat: No polyps, septum- normal, no mucosal ulcers Neck: Supple, no lymphadenopathy, no carotid bruit Respiratory: equal air entry bilaterally, no crackles heard Cardiac: S1-S2 normal, regular, no murmurs Abdomen: non distended, no tenderness, no organomegaly, bowel sounds - heard Extremities: no clubbing, trace pedal edema, no deformities, peripheral pulses - 2+ Skin: warm and dry, no rash, no purpura Neuro: Complete evaluation could not be done considering patient's altered mental status. Awake, not alert, oriented to place and himself but not to time Diagnostic Data Last Recorded Lab Results: 08/09/25 1649 08/09/25 1649 Advance Care Planning Advanced Care plannin - 30 Minutes (I spent 17 minutes in discussing various resuscitative measures, the patient chose to be full code) Additional Plan Encephalopathy likely secondary to UTI History of multiple UTI Possible catheter associated UTI Ammonia level, TSH level ordered Urine analysis positive for infection, one dose of IV ceftriaxone was given in the ER He straight caths himself for urinary retention. Urine culture in 05/20 was positive for Staphylococcus lugdunensis, was treated with Zyvox, vancomycin Patient also history of MDR Klebsiella pneumoniae Continuing previous urine culture, started on vancomycin and continued ceftriaxone. ESRD on dialysis, Sunday, , Sunday Last dialysis was yesterday. Creatinine is 6.85, GFR 8 Potassium is in the normal range Phosphorus ordered Chronic hypoxemic and hypercarbic respiratory failure Chronic COPD, not in acute exacerbation Patient is on 4 L of oxygen at baseline DuoNebs q.4 p.r.n. Chronic CHF with preserved ejection fraction not in acute exacerbation Elevated proBNP Echocardiogram from 01/20 showed EF of 50-55% and PASP 40 mmHg. Chronic normocytic anemia Hemoglobin 10.4 Patient was possibly get Retacrit during dialysis. History of AFib , controlled ventricular rate Patient is currently in sinus rhythm Continue patient's home medication amiodarone, carvedilol once the med rec is done Patient was previously on aspirin 325 mg, was advised to reduce it to 81 mg considering history of GI bleed. Not sure of what dose he is on now Depression Continue duloxetine BPH continue tamsulosin Code status: Full code DVT prophylaxis: Heparin Diet: Renal diet Line/tubes: Peripheral IV Dom Taylor M.D PGY2 Date of Service: Aug 09, 2025 Billing Provider: KIANNA MOY MD Common Visit Codes: [id number] INP/OBS CARE (HIGH) Assessment/Plan Assessment Patient evaluated with the help of residents. Discussed the case with them. Reviewed the notes by the resident and agree with assessments and plans. I also reviewed the patient's records. This included labs radiology and notes from other providers No additional points at this time.. DOM TAYLOR, RES Aug 09, 2025 22:53 KIANNA MOY MD Aug 10, 2025 04:33
[2025-08-09 23:04] LABS: PRO BRAIN NATRIURETIC PEPTIDE 2791 PG/ML (0-125)
[2025-08-09] MEDS ORDERED: ipratropium/albuterol 3ml nebule NEB PRN (23:15)
[2025-08-10] VITALS (7 sets, daily range): BP systolic 93–137; BP diastolic 49–64; PULSE 63–87; RESP 15–20; TEMP 97.9–98.5; O2SAT 93–97
[2025-08-10] MEDS: vancomycin/NS 1 GM ADD-VANTAGE 250 ML X 1 DOSE IV ONE (04:18)
[2025-08-10 07:07] LABS: MEAN PLATELET VOLUME 6.5 FL (7.4-10.4); RED CELL DISTRIBUTION WIDTH 16.8 % (11.5-14.5)
[2025-08-10 07:24] LABS: CREATININE 7.97 MG/DL (0.60-1.10); PHOSPHORUS 4.7 MG/DL (2.3-4.5); TOTAL CARBON DIOXIDE 28.3 MMOL/L (24-32); eCRCL 8 ML/MIN; eGFR 7 ML/MIN
[2025-08-10] MEDS: K and/or MAG REPLACEMENT MC SCH (07:52)
[2025-08-10] MEDS: heparin, porcine 5000 units/ml vial SQ SCH (07:59)
[2025-08-10] MEDS ORDERED: vancomycin/NS 1 GM ADD-VANTAGE 250 ML IV PRN (08:00)
[2025-08-10] MEDS: docusate sod 100mg capsule PO SCH (08:01)
--- NOTE | 2025-08-10 10:54 | PROGRESS NOTE- Residence ---
Progress Note - Resident Providers to CC Resident Creating Document: REINALDO SMITH, KRISHNA ~ Antibiotic Timeout Antibiotic Ordered?: Yes Subjective Patient is Alert and oriented x 3. Able to recall his hemodialysis schedule, where he gets them and his it security project manager's name. He endorses mild shortness of breath, however it is his baseline. He is on 4L O2 at home, but currently at 5L. He also has neck pain which he attributes to bad posture on sleeping since he was in ER. He does not move around/walk what he is totally wheel chair bound. He explained that he was super somnolent which was unusual for him what he attributed for UTI symptoms. Objective Vital Signs Date Time Temp Pulse Resp B/P (MAP) Pulse Ox O2 Delivery O2 Flow Rate FiO2 08/10/25 08:00 Nasal Cannula 5.0 08/10/25 07:52 98.3 69 15 128/61 (83) 94 Result Diagram: 08/10/25 0648 08/10/25 0648 General: Elderly obese male, not in the acute shortness of breath, orientated x 3, alert x 3, conscious, and well cooperated during the physical Head: Normocephalic with an atraumatic Eyes: Pupils- 3mm, reacting to light, conjunctiva- anicteric, pale conjunctiva Nose and throat: No polyps, septum- normal, no mucosal ulcers Neck: Supple, no lymphadenopathy, no carotid bruit Respiratory: equal air entry bilaterally, no crackles heard Cardiac: S1-S2 normal, regular, no murmurs Abdomen: non distended, no tenderness, no organomegaly, bowel sounds - heard Extremities: no clubbing, trace pedal edema, no deformities, peripheral pulses - 2+ Skin: warm and dry, no rash, no purpura Neuro: Alert and oriented x3, no focal deficits Assessment Assessment A 70-year-old male patient with a past medical history of ESRD on hemodialysis on Sunday, and Sunday, COPD on 5-6 L of oxygen at home, and heart failure with preserved EF 50-55% on 01/17/25, AFib with controlled ventricular rate, hypertension, GERD, chronic back pain, right Charcot joint arthropathy, recurrent MDRO UTI presents to the hospital with complaints of hypersomnia and worsening "shakes" of his hands which he attributed for the symptoms consistent with a UTI. He had a positive urinalysis in the hospital for which he was treated with IV Vancomycin and Ceftriaxone after consulted with Nephrology stand point, and last time he got his HD was on last Sunday. Plan Plan # Acute metabolic Encephalopathy likely secondary to UTI # History of recurrent MDRO UTI # Hx of straight catheter associated UTI Ammonia level <10, TSH level 1.54 Urine analysis positive for infection, started on IV Ceftriaxone and IV Vancomycin He straight caths himself for urinary retention. Urine culture in 05/20 was positive for Staphylococcus lugdunensis, was treated with Zyvox, vancomycin Patient also history of MDR Klebsiella pneumoniae Continuing previous urine culture, started on vancomycin and continued ceftriaxone. 08/10/25: Consulted with the nephro -UA show positive protein, blood, nitrites and leukocyte esterase with TNTC WBC. -pending angiogram sensitivity, urine culture show Gram-positive cocci -continue IV Vancomycin- Day1, and ceftriaxone- Day 2 -continue isolation for MDRO # ESRD on dialysis, Sunday, , Sunday # apparent serum hypocalcemia # moderate protein calorie malnutrition Last dialysis was Sunday. Creatinine is 7.97, GFR 7 Potassium is in the normal range Phosphorus 4.7 08/10/25: Dr Perez it security project manager consulted- Plan for hemodialysis tomorrow. -elevated BUN and creatinine -continue daily monitoring renal function, slightly up trending creatinine compared to yesterday -continue renal diet -calculated calcium level showed 9.3 which is normal # Chronic hypoxemic and hypercarbic respiratory failure from [place] # Chronic COPD, not in acute exacerbation # BMI 38.5, Class 2 Obesity -Patient is on 4 L of oxygen at baseline, currently on 5L -DuoNebs q.4 p.r.n. # Chronic CHF with preserved ejection fraction not in acute exacerbation # Elevated proBNP - Echocardiogram from 01/20 showed EF of 50-55% and PASP 40 mmHg # Chronic normocytic anemia # Proteinuria -Hemoglobin 9.3 -Patient was possibly get Retacrit during dialysis. 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 Flow cytometry showed no abnormalities in immunophenotyping or no blast cells, no leukemia/lymphoma/plasma cell dyscrasia, however, could not exclude out for myelodysplastic syndrome/myeloproliferative disorder. # History of AFib , controlled ventricular rate -Patient is currently in sinus rhythm, not on any anticoagulation -Continue patient's home medication including amiodarone, carvedilol after medication reconciliation -Patient was previously on aspirin 325 mg, was advised to reduce it to 81 mg considering history of GI bleed. Not sure of what dose he is on now # Depression Continue duloxetine # BPH # ED continue tamsulosin, modafinil CODE STATUS: Full code DVT prophylaxis: Heparin subcutaneous 5000 b.i.d. Analgesia/sedation: Oxycodone Lines/tubes: PIV GI prophylaxis: Omeprazole Nutrition: Renal diet Prognosis: Guarded Disposition: Continue medical management including antibiotics, proceed with hemodialysis as per nephrology instructions, PT eval and DC plan. Resident attestation: Patient was seen, examined and discussed with attending , Dr. Oni SMITH MD Internal Medicine Resident, PGY3 [facility] Date of Service: Aug 10, 2025 Billing Provider: DANNA REYES MD, TIN, RES Aug 10, 2025 10:54
[2025-08-10] MEDS ORDERED: ASPI-611 PO (11:00)
[2025-08-10] MEDS ORDERED: modafinil 100mg tablet PO PRN (15:10)
[2025-08-10] MEDS: ipratropium 0.5 MG/2.5ML nebule IH SCH (19:27)
[2025-08-10] MEDS: budesonide 0.5mg/2ml UD nebule IH SCH (19:28)
--- NOTE | 2025-08-10 19:38 | CONSULTATION REPORT ---
Consult Providers to CC ~ History of Present Illness Reason for Admit\Complaint: Confusion History of Present Illness Admitted for worsening confusion, he has history of frequent UTI, with resistant Klebsiella, ESRD-HD , schedule which we will continue here Allergies: Coded Allergies: Iodinated Contrast Media (Verified Allergy, Severe, SOB, DIAPHORETIC, 08/09/25) bee venom protein (honey bee) (Verified Allergy, Unknown, 08/09/25) iodine (Verified Adverse Reaction, Intermediate, SEE COMMENTS, 08/09/25) 1998 post ivp- pt c/o chest and abd pain- to er- no treatment needed- resolved. Home Medications Home Medications Active Reported Aspir 81 (Aspirin) 81 Mg Tablet.dr 1 Tab PO DAILY 30 Days Fluticasone Propionate 50 Mcg/Actuation [place].susp 2 Sprays BOTHNARES DAILY Prilosec (Omeprazole) 40 Mg Capsule 2 Cap PO BID Midodrine Hcl 10 Mg Tablet 1 Tab PO DAILY Amiodarone HCl 200 Mg Tablet 1 Tab PO BID Gabapentin 600 Mg Tablet 0.5 Tab PO HS 30 Days Flomax* (Tamsulosin HCl) 0.4 Mg Cap.sr.24h 1 Cap PO DAILY 30 Days Coreg* (Carvedilol) 12.5 Mg Tablet 0.5 Tablet PO BID Multi Vitamin Daily (Multivitamin) 1 Each Tablet 1 Tab PO DAILY 30 Days Fish Oil 1,000 Mg Ec Softgel ([place]-3/Dha/Epa/Fish Oil) 300 Mg-1,000 Mg Capsule.dr 1 Cap PO Q12H 30 Days Dialyvite Tablet (Folic Acid/Vitamin B Comp W-C) Unknown Strength Tablet 1 Tab PO DAILY 30 Days Modafinil 200 Mg Tablet 1 Tab PO DAILY PRN Trelegy Ellipta 100-62.5-25 (Fluticasone/Umeclidin/Vilanter) 100-62.5 Blst.w.dev 1 Puffs INH QAM Calcium Acetate 667 Mg Capsule 2 Cap PO TID Diazepam 5 Mg Tablet 5 Mg PO DAILY PRN 30 Days Percocet 10-325 mg Tablet (Oxycodone HCl/Acetaminophen) 10 Mg-325 Mg Tablet 1 Tab PO Q8H PRN MDD 6 Tablet(s) Duloxetine HCl 60 Mg Capsule.dr 60 Mg PO DAILY 30 Days Past Medical History Past Medical History Reviewed Past Surgical History Surgical History Comment Reviewed Family History Family History: (DM Type 2) Diabetes mellitus type 2 MOTHER ( ), , Age: 68, Cause: of unknown cause FH: breast cancer MOTHER ( ), , Age: 68, Cause: of unknown cause FH: stroke FATHER, , Age: 69, Cause: of unknown cause Past Social History Social History Comment Reviewed ROS ROS All opther systems non-contributory Exam Vitals: Vital Signs Date Time Temp Pulse Resp B/P (MAP) Pulse Ox O2 Delivery O2 Flow Rate FiO2 08/10/25 19:31 65 20 95 Nasal Cannula* 5 40 08/10/25 10:00 98.5 104/49 (67) Appears comfortable RRR w/o murmur, no JVD CTAB, no wheezes +BS, NT 2+ edema Diagnostic Data Last Recorded Lab Results: 08/10/25 0648 08/10/25 0648 Problems: (1) End-stage renal disease on hemodialysis Status: Chronic Assessment & Plan: [place] plan for dialysis tomorrow on his usual , , schedule (2) Urinary tract infection Status: Acute Assessment & Plan: Agree with IV AB, awaiting C & S to guide therapy ALLEN CHANG III DO Aug 10, 2025 19:38
[2025-08-10] MEDS: OMEGA-3/DHA/EPA/FISH OIL 1 EACH CAPSULE.DR PO SCH (20:15)
[2025-08-10] MEDS: calcium acetate 667mg (PhosLO) capsule PO SCH (20:15)
[2025-08-10] MEDS: carvedilol 6.25mg tablet PO SCH (20:16)
[2025-08-10] MEDS: pantoprazole 40mg Tablet.DR PO SCH (20:16)
[2025-08-10] MEDS: CefTRIAXone/D5W-Rocephin 1gm 50 ML IV SCH (20:17)
[2025-08-11] VITALS (19 sets, daily range): BP systolic 93–127; BP diastolic 39–60; PULSE 54–73; RESP 16–21; TEMP 97.4–98.5; O2SAT 94–97
[2025-08-11] MEDS: VANCOMYCIN LEVEL IV SCH (03:33)
[2025-08-11 05:04] LABS: MEAN PLATELET VOLUME 6.8 FL (7.4-10.4); RED CELL DISTRIBUTION WIDTH 17.0 % (11.5-14.5)
[2025-08-11 05:16] LABS: CREATININE 9.71 MG/DL (0.60-1.10); PHOSPHORUS 7.7 MG/DL (2.3-4.5); TOTAL CARBON DIOXIDE 25.8 MMOL/L (24-32); eCRCL 7 ML/MIN; eGFR 5 ML/MIN
[2025-08-11 05:59] LABS: EOSINOPHILS % (MANUAL) 3.0 % (0-6); LYMPHOCYTES % (MANUAL) 16.0 % (21-51)
[2025-08-11 06:00] LABS: MONOCYTES % (MANUAL) 20.0 % (2-12); NEUTROPHILS % (MANUAL) 61.0 % (42-75); PLATELET ESTIMATE DECREASED
--- NOTE | 2025-08-11 07:54 | PROGRESS NOTE ---
Progress Note Dictate Providers to CC ~ Antibiotic Ordered?: N/A Subjective Subjective Admit for UTI and confusion, HD today Objective Vitals Vital Signs Date Time Temp Pulse Resp B/P (MAP) Pulse Ox O2 Delivery O2 Flow Rate FiO2 08/11/25 07:44 59 18 Nasal Cannula 4.0 08/11/25 07:32 96 40 08/11/25 06:00 97.5 121/49 (73) Alert RRR w/o murmur, no JVD CTAB, no wheezes _BS, NT 2+ edema Lab Results: 08/11/25 0439 08/11/25 0439 Other Results I & O 08/11/25 07:00 Intake Total 800 ml Output Total 150 ml Balance 650 ml Intake Oral 800 ml Output Urine Total 150 ml # Voids 1 Problem\Assessment\Plan Problems/Diagnosis: (1) End-stage renal disease on hemodialysis Assessment & Plan: Jenny plan for dialysis today on his usual T, , schedule Continue home regimen for hypertension, hyperphosphatemia (2) Urinary tract infection Assessment & Plan: Agree with IV AB, awaiting C & S to guide therapy ALLEN CHANG III DO Aug 11, 2025 07:54
[2025-08-11] MEDS ORDERED: albuterol 2.5 MG/3 ML nebule NEB PRN (08:00)
[2025-08-11] MEDS ORDERED: normal saline 1000ml 100 ML IV PRN (08:00)
[2025-08-11] MEDS: fluticasone nasal spray 16GM bottle NS SCH (08:31)
[2025-08-11] MEDS: aspirin 81mg, enteric-coated 1 TAB TABLET.DR PO SCH (08:33)
[2025-08-11] MEDS: duloxetine 30mg CAPSULE.DR PO SCH (08:33)
[2025-08-11] MEDS: multivitamins, therapeutics tablet PO SCH (08:33)
[2025-08-11] MEDS: midodrine 5mg tablet PO SCH (08:34)
--- NOTE | 2025-08-11 09:50 | PROGRESS NOTE- Residence ---
Progress Note - Resident Providers to CC Resident Creating Document: REINALDO SMITH RES ~ Antibiotic Timeout Antibiotic Ordered?: Yes Subjective pt will be having the HD today and to maintain his usual HD days on TTS. Instructions for HD was directed by Dr Perez Nephrology team already. Objective Vital Signs Date Time Temp Pulse Resp B/P (MAP) Pulse Ox O2 Delivery O2 Flow Rate FiO2 08/11/25 07:44 59 18 Nasal Cannula 4.0 08/11/25 07:32 96 40 08/11/25 06:00 97.5 121/49 (73) Result Diagram: 08/11/2543808/11/25438 General: Elderly obese male, not in the acute shortness of breath, orientated x 3, alert x 3, conscious, and well cooperated during the physical Head: Normocephalic with an atraumatic Eyes: Pupils- 3mm, reacting to light, conjunctiva- anicteric, pale conjunctiva Nose and throat: No polyps, septum- normal, no mucosal ulcers Neck: Supple, no lymphadenopathy, no carotid bruit Respiratory: equal air entry bilaterally, no crackles heard Cardiac: S1-S2 normal, regular, no murmurs Abdomen: non distended, no tenderness, no organomegaly, bowel sounds - heard Extremities: no clubbing, trace pedal edema, no deformities, peripheral pulses - 2+ Skin: warm and dry, no rash, no purpura Neuro: Alert and oriented x3, no focal deficits Assessment Assessment A 70-year-old male patient with a past medical history of ESRD on hemodialysis on Sunday, and Sunday, COPD on 5-6 L of oxygen at home, and heart failure with preserved EF 50-55% on 01/17/25, AFib with controlled ventricular rate, hypertension, GERD, chronic back pain, right Charcot joint arthropathy, recurrent MDRO UTI presents to the hospital with complaints of hypersomnia and worsening "shakes" of his hands which he attributed for the symptoms consistent with a UTI. He had a positive urinalysis in the hospital for which he was treated with IV Vancomycin and Ceftriaxone after consulted with Nephrology stand point, and last time he got his HD was on last Sunday. Plan Plan # Acute metabolic Encephalopathy likely secondary to UTI # History of recurrent MDRO UTI # Hx of straight catheter associated UTI Ammonia level <10, TSH level 1.54 Urine analysis positive for infection, started on IV Ceftriaxone and IV Vancomycin He straight caths himself for urinary retention. Urine culture in 05/20 was positive for Staphylococcus lugdunensis, was treated with Zyvox, vancomycin Patient also history of MDR Klebsiella pneumoniae Continuing previous urine culture, started on vancomycin and continued ceftriaxone. 08/11/25: proceed with the instructed HD today by Dr Perez -Urine C&S antibiogram shows Strep agalactiae group B which is sensitive for Vancomycin with PATY 0.5. -continue IV Vancomycin Day 2, and stopped IV Ceftriaxone after 3 days full courses -continue probiotics 08/10/25: Consulted with the nephro -UA show positive protein, blood, nitrites and leukocyte esterase with TNTC WBC. -pending antibiogram sensitivity, urine culture show Gram-positive cocci -continue IV Vancomycin- Day 1, and ceftriaxone- Day 2 -continue isolation for MDRO # ESRD on dialysis, Sunday, , Sunday # apparent serum hypocalcemia # moderate protein calorie malnutrition Last dialysis was Sunday. 08/11/2025: Creatinine is 9.71, GFR 5 Potassium is 5.0 Phosphorus 7.7 -continue HD today as per Dr Perez instruction, and maintain his usual HD days on TTS -continue protein encourage diet 08/10/25: Dr Perez electronics worker consulted- Plan for hemodialysis today. -elevated BUN and creatinine -continue daily monitoring renal function, up trending creatinine compared to yesterday -continue renal diet -calculated calcium level showed 9.9 which is normal # Chronic hypoxemic and hypercarbic respiratory failure from [facility] # Chronic COPD, not in acute exacerbation # BMI 38.5, Class 2 Obesity -Patient is on 4 L of oxygen at baseline -DuoNebs q.4 p.r.n. # Chronic CHF with preserved ejection fraction not in acute exacerbation # Elevated proBNP - Echocardiogram from 01/20 showed EF of 50-55% and PASP 40 mmHg # Chronic normocytic anemia # Proteinuria 08/11/2025: Continue erythropoietin injection as per Nephrology instructions during hemodialysis -continue monitoring BP 08/10/2025:-Hemoglobin 9.3 -Patient was possibly get Retacrit during dialysis. 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 Flow cytometry showed no abnormalities in immunophenotyping or no blast cells, no leukemia/lymphoma/plasma cell dyscrasia, however, could not exclude out for myelodysplastic syndrome/myeloproliferative disorder. # History of AFib , controlled ventricular rate 08/11/2025: Remains sinus with CVR 08/10/2025:-Patient is currently in sinus rhythm, not on any anticoagulation -Continue patient's home medication including amiodarone, carvedilol after medication reconciliation -Patient was previously on aspirin 325 mg, was advised to reduce it to 81 mg considering history of GI bleed. Not sure of what dose he is on now # Depression Continue duloxetine # BPH # ED continue tamsulosin, modafinil CODE STATUS: Full code DVT prophylaxis: Heparin subcutaneous 5000 b.i.d. Analgesia/sedation: Oxycodone Lines/tubes: PIV GI prophylaxis: Omeprazole Nutrition: Renal diet Prognosis: Guarded Disposition: Continue medical management including antibiotics, proceed with hemodialysis as per nephrology instructions, PT eval and DC plan possible tomorrow. Resident MD attestation: Patient was seen, examined and discussed with attending MD, Dr. Oni SMITH MD Internal Medicine Resident, PGY3 [facility] Date of Service: Aug 11, 2025 Billing Provider: DANNA REYES MD Common Visit Codes: [id number] INP/OBS CARE(HIGH) REINALDO SMITH, RES Aug 11, 2025 09:50 DANNA REYES MD Aug 12, 2025 08:38
[2025-08-11] MEDS: vancomycin/NS 1 GM ADD-VANTAGE 250 ML X 1 DOSE IV ONE (10:14)
[2025-08-11] MEDS: heparin 1,000 units/ml 10ml inj HE ONE ×2 (14:10)
[2025-08-11] MEDS: LIDOcaine 1% (10mg/ml) 2ml vial ONE (14:15)
[2025-08-11] MEDS: LIDOcaine 1% (10mg/ml) 2ml vial SQ ONE (14:16)
[2025-08-11] MEDS: EPOETIN ALFA-EPBX 20,000 UNIT/ML 1 ML MDV IV ONE (15:21)
[2025-08-12] VITALS (9 sets, daily range): BP systolic 119–127; BP diastolic 49–50; PULSE 58–81; RESP 15–18; TEMP 97.8–98.1; O2SAT 95–96
[2025-08-12 05:01] LABS: MEAN PLATELET VOLUME 6.7 FL (7.4-10.4); RED CELL DISTRIBUTION WIDTH 16.6 % (11.5-14.5)
[2025-08-12 05:16] LABS: CREATININE 5.88 MG/DL (0.60-1.10); PHOSPHORUS 5.7 MG/DL (2.3-4.5); TOTAL CARBON DIOXIDE 29.6 MMOL/L (24-32); eCRCL 11 ML/MIN; eGFR 10 ML/MIN
[2025-08-12] MEDS: vancomycin/NS 1 GM ADD-VANTAGE 250 ML IV ONE (08:35)
[2025-08-12] MEDS ORDERED: LACT1CAP65 PO (10:30)
[2025-08-12] MEDS ORDERED: LINE600T11 PO (10:30)
--- NOTE | 2025-08-12 14:34 | PROGRESS NOTE ---
Progress Note Dictate Providers to CC ~ Antibiotic Ordered?: N/A Subjective Subjective he feels much better today, wondering when he could go home Objective Vitals Vital Signs Date Time Temp Pulse Resp B/P (MAP) Pulse Ox O2 Delivery O2 Flow Rate FiO2 08/12/25 10:00 97.8 62 18 127/50 (75) 95 Nasal Cannula 4.0 08/12/25 07:14 36 Alert RRR w/o murmur, no JVD CTAB, no wheezes 1+ edema chronic Lab Results: 08/12/25 0436 08/12/25 0436 Problem\Assessment\Plan Problems/Diagnosis: (1) End-stage renal disease on hemodialysis Assessment & Plan: Jenny plan for dialysis today on his usual , , schedule Continue home regimen for hypertension, hyperphosphatemia (2) Urinary tract infection Assessment & Plan: Agree with IV AB, awaiting C & S to guide therapy Sepsis Screening Skin Color: Normal WALL,ALLEN M III DO Aug 12, 2025 14:34
--- NOTE | 2025-08-12 15:47 | DISCHARGE SUMMARY-Residence ---
Discharge Summary Providers to CC Resident Creating Document: REINALDO SMITH RES ~ Discharge Summary Admission Diagnosis: ENCEPHALOPATHY Hospital Course DATE OF ADMISSION: 08/09/2025 DATE OF DISCHARGE: 08/12/2025 Discharge Diagnosis\\Comment: # Acute metabolic Encephalopathy likely secondary to UTI # History of recurrent MDRO UTI # Hx of straight catheter associated UTI # ESRD on dialysis, Sunday, , Sunday # apparent serum hypocalcemia # moderate protein calorie malnutrition # Chronic hypoxemic and hypercarbic respiratory failure from [facility] # Chronic COPD, not in acute exacerbation # BMI 38.5, Class 2 Obesity # Chronic CHF with preserved ejection fraction not in acute exacerbation, EF 50- 55% and PASP 40 mmHg # Chronic normocytic anemia # Proteinuria # History of AFib , controlled ventricular rate # Depression # BPH # ED Operations\\Procedures: Hemodialysis Consultants: Dr. Perez, nephrology Complications: None Condition on DC: Stable New Medications: Lactobacillus Acidophilus (Probiotic) 10 Billion Cell Capsule 1 EACH PO DAILY for 14 Days, #14 CAP Linezolid (ZYVOX tablet) 600 Mg Tablet 1 TAB PO Q12H for 10 Days, #20 TAB with food Continued Medications: Amiodarone HCl (Amiodarone HCl) 200 Mg Tablet 1 TAB PO BID, TAB 0 Refills Aspirin (Aspir 81) 81 Mg Tablet.dr 1 TAB PO DAILY for 30 Days, #30 TAB Calcium Acetate (Calcium Acetate) 667 Mg Capsule 2 CAP PO TID Carvedilol* (Coreg*) 12.5 Mg Tablet 0.5 TABLET PO BID, TABLET Diazepam (Diazepam) 5 Mg Tablet 5 MG PO DAILY PRN for anxiety for 30 Days, #60 TAB 0 Refills Duloxetine HCl (Duloxetine HCl) 60 Mg Capsule.dr 60 MG PO DAILY for 30 Days, #30 CAP Fluticasone Propionate (Fluticasone Propionate) 50 Mcg/Actuation [place].susp 2 SPRAYS BOTHNARES DAILY, #16 GM 0 Refills Fluticasone/Umeclidin/Vilanter (Trelegy Ellipta 100-62.5-25) 100-62.5 Blst.w.dev 1 PUFFS INH QAM Folic Acid/Vitamin B Comp W-C (Dialyvite Tablet) Unknown Strength Tablet 1 TAB PO DAILY for 30 Days, #30 TAB 0 Refills Gabapentin (Gabapentin) 600 Mg Tablet 0.5 TAB PO HS for 30 Days, #90 TAB 0 Refills Midodrine Hcl (Midodrine Hcl) 10 Mg Tablet 1 TAB PO DAILY, TAB 0 Refills Modafinil (Modafinil) 200 Mg Tablet 1 TAB PO DAILY PRN for ED Multivitamin (Multi Vitamin Daily) 1 Each Tablet 1 TAB PO DAILY for 30 Days, #30 TAB 0 Refills [place]-3/Dha/Epa/Fish Oil (Fish Oil 1,000 Mg Ec Softgel) 300 Mg-1,000 Mg Capsule.dr 1 CAP PO Q12H for 30 Days, #60 CAP 0 Refills Omeprazole (Prilosec) 40 Mg Capsule 2 CAP PO BID, CAP Oxycodone HCl/Acetaminophen (Percocet 10-325 mg Tablet) 10 Mg-325 Mg Tablet 1 TAB PO Q8H PRN for pain MDD 6 Tablet(s), TAB Tamsulosin Hcl* (Flomax*) 0.4 Mg Cap.sr.24h 1 CAP PO DAILY for 30 Days, #30 CAP Discharge Summary: A 70-year-old male patient with a past medical history of ESRD on hemodialysis on Sunday, and Sunday, COPD on 5-6 L of oxygen at home, and heart failure with preserved EF 50-55% on 01/17/25, AFib with controlled ventricular rate, hypertension, GERD, chronic back pain, right Charcot joint arthropathy, recurrent MDRO UTI presents to the hospital with complaints of hypersomnia and worsening "shakes" of his hands which he attributed for the symptoms consistent with a UTI. He had a positive urinalysis in the hospital for which he was treated with IV Vancomycin and Ceftriaxone after consulted with Nephrology stand point, and last time he got his HD was on last Sunday. Hospital course: On admission, his Ammonia level <10, TSH level was 1.54. Urine analysis positive for infection for which he was on IV Ceftriaxone and IV Vancomycin as his previous Urinary infection was sensitive with Vancomycin. His Urine culture in 05/20 was positive for Staphylococcus lugdunensis, was treated with Zyvox, vancomycin on the last admission. Patient also history of MDR Klebsiella pneumoniae. We consulted with Dr Perez, Nephrology, who arranged for the one time Hemodialysis during hospitalization on 08/11/25. His Urine C&S antibiogram came back with Strep agalactiae group B which is sensitive for Vancomycin with PATY 0.5, and we stopped Ceftriaxone after 3 days course. After one time hemodialysis, his Creatinine went down to 5.88 from 9.71. He was consistently on renal diet. He has a chronic hypoxemic and hypercapnic respiratory failure from hypoventilation syndrome with class two obesity BMI 38.5 on regular 4 L/min oxygen as his baseline at home. 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 Flow cytometry showed no abnormalities in immunophenotyping or no blast cells, no leukemia/lymphoma/plasma cell dyscrasia, however, could not exclude out for myelodysplastic syndrome/myeloproliferative disorder. He was persistently on erythropoietin injection as per Nephrology instructions during hemodialysis. All of his home medication were reconciled properly, continue appropriately during hospitalization. He was advised to reduce his usual dosage of aspirin 325-81 mg daily on last admission because of his GI bleed. DVT prophylaxis was achieved with heparin subcutaneous 5000 b.i.d., GI prophylaxis with omeprazole were achieved during hospitalization. All of his concerns and questions were addressed and answered with the best knowledge of our team before he was discharged. All of the vitals were stable at the moment with temp 97.8 F, ME 62/minute, RR 18/minute, BP 127/50 mm Hg, pulse oximetry 95% on nasal cannula 4 L/min. On exam, General: Elderly obese male, not in the acute shortness of breath, orientated x 3, alert x 3, conscious, and well cooperated during the physical Head: Normocephalic with an atraumatic Eyes: Pupils- 3mm, reacting to light, conjunctiva- anicteric, pale conjunctiva Nose and throat: No polyps, septum- normal, no mucosal ulcers Neck: Supple, no lymphadenopathy, no carotid bruit Respiratory: equal air entry bilaterally, no crackles heard Cardiac: S1-S2 normal, regular, no murmurs Abdomen: non distended, no tenderness, no organomegaly, bowel sounds - heard Extremities: no clubbing, trace pedal edema, no deformities, peripheral pulses - 2+ Skin: warm and dry, no rash, no purpura Neuro: Alert and oriented x3, no focal deficits Laboratory Tests Test 08/11/25 04:39 08/12/25 04:36 White Blood Count 5.3 X10'3 4.2 X10'3 Red Blood Count 3.14 X10'6 3.16 X10'6 Hemoglobin 8.8 g/dl 9.0 g/dl Hematocrit 27.4 % 27.4 % Mean Corpuscular Volume 87.4 FL 86.6 FL Mean Corpuscular Hemoglobin 28.0 PG 28.4 PG Mean Corpuscular Hemoglobin Concent 32.0 g/dL 32.8 g/dL Red Cell Distribution Width 17.0 % 16.6 % Platelet Count 109 X10'3 118 X10'3 Mean Platelet Volume 6.8 FL 6.7 FL Neutrophils (%) (Auto) 61.6 % 67.3 % Lymphocytes (%) (Auto) 16.7 % 14.8 % Monocytes (%) (Auto) 17.9 % 14.2 % Eosinophils (%) (Auto) 3.3 % 3.4 % Basophils (%) (Auto) 0.5 % 0.3 % Neutrophils # (Auto) 3.2 X10'3 2.8 X10'3 Lymphocytes # (Auto) 0.9 X10'3 0.6 X10'3 Monocytes # (Auto) 0.9 X10'3 0.6 X10'3 Eosinophils # (Auto) 0.2 X10'3 0.1 X10'3 Basophils # (Auto) 0.0 X10'3 0.0 X10'3 CBC Comment Differential Total Cells Counted 100 Neutrophils % (Manual) 61.0 % Lymphocytes % (Manual) 16.0 % Monocytes % (Manual) 20.0 % Eosinophils % (Manual) 3.0 % Platelet Estimate Decreased Red Blood Cell Morphology Perf Basophilic Stippling Anisocytosis 1+ Sodium Level 131 MMOL/L 133 MMOL/L Potassium Level 5.0 MMOL/L 4.5 MMOL/L Chloride Level 91 MMOL/L 96 MMOL/L Carbon Dioxide Level 25.8 MMOL/L 29.6 MMOL/L Anion Gap 14 7 Blood Urea Nitrogen 74 MG/DL 40 MG/DL Creatinine 9.71 MG/DL 5.88 MG/DL Estimated GFR/1.73 m2 5 ML/MIN 10 ML/MIN BUN/Creatinine Ratio 7.6 6.8 Glucose Level 101 MG/DL 86 MG/DL Calcium Level 8.5 MG/DL 8.4 MG/DL Phosphorus Level 7.7 MG/DL 5.7 MG/DL Magnesium Level 2.2 MG/DL 2.1 MG/DL Total Bilirubin 0.3 MG/DL 0.3 MG/DL Aspartate Amino Transf (AST/SGOT) 7 U/L 11 U/L Alanine Aminotransferase (ALT/SGPT) 6 U/L 9 U/L Alkaline Phosphatase 76 IU/L 76 IU/L Total Protein 6.0 G/DL 6.0 G/DL Albumin 2.2 G/DL 2.2 G/DL Globulin 3.8 G/DL 3.8 G/DL Albumin/Globulin Ratio 0.6 0.6 Chemistry Comments Random Vancomycin Level 9.5 ug/mL 14.4 ug/mL Microbiology 08/10/25 MRSA Screen - Final, Complete NO METHICILLIN RESISTANT S. AUREUS IS... 08/09/25 Urine Culture - Final, Complete Strep Agalactiae (Grp B) CULT URINE + COLONY CT Final Organism 1 STREP AGALACTIAE (GRP B) >100,000 CFU/ml S AGALACTI M.I.C. RX --------- --- AMPICILLIN <=0.25 S LEVOFLOXACIN 1 S LINEZOLID <=2 S PENICILLIN-G (NON-MENINGITIS) <=0.06 S VANCOMYCIN 0.5 S Discharge instructions: -immediate return to ER for emergency conditions -follow up with the PCP, Nephrology Dr. Doe in 1-2 weeks after discharge -continue hemodialysis on Sunday, , and Sunday as Nephrology instructed -continue and complete antibiotics course with the probiotics to prevent unnecessary multidrug resistant infections -compliance with medications and nephrology follow up, and renal diet which were recommended -strict universal precautions for straight catheterization at home -be compliance with hemodialysis on regular basis * addendum: Patient discharge prescription Zyvox has a potential drug interactions with midodrine for the possible hypertensive crisis especially patient could not have continuous close blood pressure monitoring at home, patient discharge antibiotics was switched into p.o. ampicillin 500 mg b.i.d. for another 10 days which was verbally informed to patient's pharmacy at [facility] over the phone on 08/13/2025 and the call was received by the pharmacist Sarmad* Resident attestation: Patient was seen, examined and discussed with attending MD, Dr. Oni SMITH MD Internal Medicine Resident, PGY3 [facility] *Problems/Diagnosis: (1) End-stage renal disease on hemodialysis Status: Chronic (2) Urinary tract infection Status: Chronic (3) Chronic renal insufficiency Status: Chronic Total Time Spent on D/C: > 30 Minutes Date of Service: Aug 12, 2025 Billing Provider: DANNA REYES MD LUIS,TIN, RES Aug 12, 2025 15:24
[2025-08-13 07:17] LABS: HBSAG SCREEN Negative (Negative)
== END 2025-08-12 16:00 | disposition home health service (06) | DRG 689 ==
LOC: ER 16:16 → ED HOLD 21:02 → ORTHO 4S 08-10 07:09
PROVIDERS: ADMIT Internal Medicine Critical Care Medicine; ATTEND Internal Medicine
PROC: 5A1D70Z Performance of Urinary Filtration, Intermittent, Less than 6 Hours Per Day (ICD-10-PCS; principal; 2025-08-11)
DX: N39.0 Urinary tract infection, site not specified (principal); G93.41 Metabolic encephalopathy; N18.6 End stage renal disease; E44.0 Moderate protein-calorie malnutrition; I13.2 Hypertensive heart and chronic kidney disease with heart failure and with stage 5 chronic kidney disease, or end stage renal disease; I50.32 Chronic diastolic (congestive) heart failure; J96.12 Chronic respiratory failure with hypercapnia; J96.11 Chronic respiratory failure with hypoxia; Z99.2 Dependence on renal dialysis; E11.22 Type 2 diabetes mellitus with diabetic chronic kidney disease; F32.A Depression, unspecified; E66.812 Obesity, class 2; N40.0 Benign prostatic hyperplasia without lower urinary tract symptoms; E83.39 Other disorders of phosphorus metabolism; J44.9 Chronic obstructive pulmonary disease, unspecified; K21.9 Gastro-esophageal reflux disease without esophagitis; D64.9 Anemia, unspecified; I48.91 Unspecified atrial fibrillation; Z80.3 Family history of malignant neoplasm of breast; Z86.73 Personal history of transient ischemic attack (TIA), and cerebral infarction without residual deficits; Z83.3 Family history of diabetes mellitus; Z82.3 Family history of stroke; Z87.442 Personal history of urinary calculi; Z90.49 Acquired absence of other specified parts of digestive tract; Z68.38 Body mass index [BMI] 38.0-38.9, adult; Z87.440 Personal history of urinary (tract) infections
CPT/HCPCS: 36415; 80053; 80202; 81001; 82140; 83036; 83735; 83880; 84100; 84443; 85007; 85025; 87077; 87081; 87088; 87186; 87340; 94640; 94760; 96365; 97161; 97530; 99285; A6209; A6590; C1758; E1594; G0257; G0378; J0696; J1644; J2003; J3373; J7030; Q4081

== ENCOUNTER 2025-09-04 15:47 | Inpatient (IN) | payer BC, MEDICARE ==
[~2025-09-04] VITALS: Ht 167.6 cm; Wt 121.0 kg
[~2025-09-04 15:47] MED LIST changes: +ASPI-611 PO; -FER325T PO; +LACT1CAP65 PO
--- NOTE | 2025-09-04 15:58 | ELECTROCARDIOGRAPH REPORT ---
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
--- NOTE | 2025-09-04 16:00 | Physician Documentation ---
History of Present Illness General Chief Complaint: ALOC Stated Complaint: ALOC/SOB Time Seen by MD: 15:53 Primary Medical Doctor: GEORGES History of Present Illness Initial Comments The patient is a 70-year-old male with a history of renal failure COPD and CHF who was normally on home oxygen. Patient was last seen this morning according to family he was normal at the time. The patient's significant other the other returned and found the patient confused and in respiratory distress. On EMS a rrival the patient was on 3 L of oxygen and was satting 84%. The patient was confused and mumbling and unable to answer questions or follow commands. The patient is unable to provide any comprehensive history. History was obtained by EMS. Medication Reconciliation Allergies: Coded Allergies: Iodinated Contrast Media (Verified Allergy, Severe, SOB, DIAPHORETIC, 09/04/25) bee venom protein (honey bee) (Verified Allergy, Unknown, 09/04/25) iodine (Verified Adverse Reaction, Intermediate, SEE COMMENTS, 09/04/25) 1998 post ivp- pt c/o chest and abd pain- to er- no treatment needed- resolved. Scheduled Amiodarone HCl (Amiodarone HCl), 1 TAB PO DAILY, (Reported) Aspirin (Aspir 81), 1 TAB PO DAILY, (Reported) Calcium Acetate (Calcium Acetate), 2 CAP PO TID, (Reported) Carvedilol* (Coreg*), 0.5 TABLET PO BID, (Reported) Duloxetine HCl (Duloxetine HCl), 60 MG PO DAILY, (Reported) Fluticasone Propionate (Fluticasone Propionate), 2 SPRAYS BOTHNARES DAILY, (Reported) Fluticasone/Umeclidin/Vilanter (Trelegy Ellipta 100-62.5-25), 1 PUFFS INH DAILY, (Reported) Folic Acid/Vitamin B Comp W-C (Dialyvite Tablet), 1 TAB PO DAILY, (Reported) Gabapentin (Gabapentin), 0.5 TAB PO HS, (Reported) Lactobacillus Acidophilus (Probiotic), 1 EACH PO DAILY Midodrine Hcl (Midodrine Hcl), 1 TAB PO DAILY, (Reported) Multivitamin (Multi Vitamin Daily), 1 TAB PO DAILY, (Reported) [place]-3/Dha/Epa/Fish Oil (Fish Oil 1,000 Mg Ec Softgel), 1 CAP PO Q12H, (Repor estefany) Omeprazole (Prilosec), 2 CAP PO BID, (Reported) Tamsulosin Hcl* (Flomax*), 1 CAP PO DAILY, (Reported) Scheduled PRN Diazepam (Diazepam), 5 MG PO DAILY PRN for anxiety, (Reported) Modafinil (Modafinil), 1 TAB PO DAILY PRN for ED, (Reported) Oxycodone HCl/Acetaminophen (Percocet 10-325 mg Tablet), 1 TAB PO Q8H PRN for pain, (Reported) Discontinued Medications Fluticasone/Umeclidin/Vilanter (Trelegy Ellipta 100-62.5-25), 1 PUFFS INH QAM, (Reported) Discontinued Reason: patient no longer taking Past Medical History Past Medical History: Atrial Fibrillation, Congestive Heart Failure, Hypertension, COPD, Gastritis, GERD, Acute Kidney Injury, Chronic Kidney Disease, Dialysis, Kidney Stones, UTI, Chronic Back Pain, Bipolar, Depression Past Surgical History: appendectomy, cholecystectomy, orthopedic surgeries, other Other Past Surgical History: Dental surgery. Av fistula placement Smoking: Non-Smoker, Cigarettes Alcohol Use: None Drug Use: none Lives with: S/O Lives In: Home Review of Systems Unable to obtain complete ROS: altered mental status Physical Exam Physical Exam Vital Signs: Temperature: 101.6, Source: Axillary, Heart Rate: 63, Respiratory Rate: 18, BP: 94/49, Pulse Oximetry: 93, Weight: 119.300 Oxygen Flow Rate: 15.0 Physical Exam VITALS: Reviewed and as above. GENERAL: Confused eyes are open patient is in respiratory distress HEENT: Normocephalic, atraumatic, PERRL, EOMI, dry mucosa, no erythema RESPIRATORY: Diminished breath sounds bilaterally patient has intercostal as well as sternal retractions and CHEST: Sternal intercostal retractions CV: Regular rate, rhythm, no edema, no murmur, No: JVD GI: Soft, non-tender, bowels sounds present, no rebound, guarding, or rigidity BACK: No CVA tenderness, or swelling MUSCULOSKELETAL: No deformities, 2+ edema. Pitting in the lower extremities SKIN: Warm and dry, no rash NEURO: The patient is unable to of follow commands he does spontaneously move all extremities., No motor or sensory deficit Progress Results/Orders Results/Orders Orders - OHLFS,VAN Allen MD Culture Blood (09/04/25 15:53) Chest,Single View (09/04/25 15:53) Abg (Arterial Blood Gas) (09/04/25 ) Svn Treatment (09/04/25 15:53) High Flow O2 Daily (09/04/25 16:20) Covid19 Binax Poc Result Entry (09/04/25 16:46) Page Hospitalist (09/04/25 16:51) Fill Out Med Reconciliation (09/04/25 16:51) Page Hospitalist (09/04/25 16:56) Completed Orders - OHLFS,VAN Allen MD Electrocardiogram (09/04/25 15:53) Cbc/Diff (09/04/25 15:53) MG (09/04/25 15:53) Chest,Single View (09/04/25 15:53) Procalcitonin (09/04/25 15:53) BMP (09/04/25 15:53) Hs Troponin I W Calculations (09/04/25 15:53) Hs Troponin I W Calculations (09/04/25 17:53) Hs Troponin I W Calculations (09/04/25 18:53) Lacticsepsis (09/04/25 15:53) PBNP (09/04/25 15:53) Ipratropium/Albuterol Nebule (Ipratrop/A (09/04/25 15:55) Methylprednisolone Sod Succ (Solumedrol (09/04/25 15:55) Ceftriaxone 2gm/D5w 50ml Bag (Rocephin 2 (09/04/25 16:00) Vancomycin*Pharmacy To Dose* (Vancomycin (09/04/25 16:05) Man Diff (09/04/25 15:56) Normal Saline 1000ml (0.9% Sodium Chlori (09/04/25 16:40) Vancomycin/Ns 1 Gm Add-[place] (Vancomyc (09/04/25 16:45) Vancomycin/Ns 1 Gm Add-[place] (Vancomyc (09/04/25 16:45) Non Formulary (09/05/25 03:00) Ua W/Microscopic, Cult If Ind (09/04/25 22:36) Vital Signs 09/04/25 09/04/25 09/04/25 09/04/25 15:48 16:00 16:09 16:16 Temp 101.6 Pulse 63 82 101 Resp 18 19 19 B/P (MAP) 94/49 Pulse Ox 93 98 98 O2 Delivery Non-Rebreather Salter Nasal Cannula* O2 Flow Rate 15.0 16 15 FiO2 N/A 71 09/04/25 09/04/25 09/04/25 16:18 16:36 17:35 Pulse 82 78 74 Resp 16 20 19 B/P (MAP) 99/48 (65) 112/52 (72) Pulse Ox 93 98 97 O2 Flow Rate 15.0 15.0 15.0 Laboratory Tests Test 09/04/25 15:56 09/04/25 16:05 09/04/25 17:43 White Blood Count 9.2 Red Blood Count 2.78 L Hemoglobin 8.1 L Hematocrit 25.2 L Mean Corpuscular Volume 90.6 Mean Corpuscular Hemoglobin 29.1 Mean Corpuscular Hemoglobin Concent 32.1 L Red Cell Distribution Width 22.0 H Platelet Count 142 Mean Platelet Volume 6.8 L Neutrophils (%) (Auto) 92.8 H Lymphocytes (%) (Auto) 1.1 L Monocytes (%) (Auto) 5.7 Eosinophils (%) (Auto) 0.1 Basophils (%) (Auto) 0.3 Neutrophils # (Auto) 8.6 H Lymphocytes # (Auto) 0.1 L Monocytes # (Auto) 0.5 Eosinophils # (Auto) 0.0 Basophils # (Auto) 0.0 CBC Comment Differential Total Cells Counted 100 Neutrophils % (Manual) 85.0 H Band Neutrophils % 6.0 Lymphocytes % (Manual) 2.0 L Monocytes % (Manual) 7.0 Platelet Estimate Normal Red Blood Cell Morphology Perf Basophilic Stippling Anisocytosis 3+ Stomatocytes 3+ Elliptocytes Few Sodium Level 137 Potassium Level 4.3 Chloride Level 97 L Carbon Dioxide Level 34.1 H Anion Gap 6 L Blood Urea Nitrogen 27 H Creatinine 5.95 H Estimated GFR/1.73 m2 9 BUN/Creatinine Ratio 4.5 L Glucose Level 112 H Lactic Acid Level 1.1 Calcium Level 7.9 L Magnesium Level 2.1 Troponin I High Sensitivity 9 Pro-B-Type Natriuretic Peptide 5905 H Albumin 2.6 L Procalcitonin 21.76 H Chemistry Comments Blood Gas Specimen Type Arterial Blood Gas Puncture Site Lr O2 Saturation 95.4 Arterial Blood pH (Temp corrected) 7.367 Arterial Blood pCO2 (Temp correct) 51.2 H Arterial Blood pO2 (Temp corrected) 93.8 Arterial Blood PO2/FiO2 Ratio 0.84 Arterial Blood HCO3 28.2 H Arterial Blood Base Excess 2.9 Arterial Blood Oxyhemoglobin 92.9 L Arterial Blood Carboxyhemoglobin 2.3 H Arterial Blood Methemoglobin 0.3 Arterial Blood Deoxyhemoglobin 4.5 Robert Test Positive Blood Gas Hemoglobin 8.3 L Blood Gas Temperature 38.7 Blood Gas Liter Flow 15 Blood Gas Modality Mask - nrb FiO2 100.0 SARS-CoV-2 Antigen (Rapid) Negative EKG/XRAY/CT/US/VASC/MRI Chest X-Ray : Additional Comments Patient: ALFONSO HANDLEY Medical Record: [id number] [facility] : 1955, Age: 70 Sex: Male Location: ER Patient Status: [facility] ER Service Date/Time: 09/04/251552 Ordering Physician: VAN MICHEL MD Exam: CHEST,SINGLE VIEW CLINICAL HISTORY: SEPSIS TECHNIQUE: Single view of the chest was obtained. COMPARISON: DI CHEST,SINGLE VIEW on DOS: 04/13/25, DI CHEST,SINGLE VIEW on DOS: 04/08/25, DI CHEST,SINGLE VIEW on DOS: 04/04/25, DI CHEST,SINGLE VIEW on DOS: 01/17/25, DI CHEST,SINGLE VIEW on DOS: 01/03/25 FINDINGS: The heart size and pulmonary vasculature are normal. There is mild bibasilar atelectasis. IMPRESSION: NO ACUTE CARDIOPULMONARY PROCESS. Electronically Signed by:BHARATHI HART MD Date & Time: 09/04/251618 Dictated by: BHARATHI HART MD Dictation date and time: 09/04/251618 Primary Care Provider: NO PRIMARY CARE PROVIDER cc: VAN MICHEL MD ~ Medical Decision Making Findings The patient is a 70-year-old male came in an moderate respiratory distress the patient has a history of COPD as well as CHF patient was febrile he has a procalcitonin and 21 he does have diminished breath sounds on exam he does appear by my read of the chest x-ray to have a left lower lobe infiltrate. The patient's cardiac silhouette was normal his mediastinum was normal and he does have some slight lower left lower lobe infiltrates on chest x-ray the radiologist's interpretation was reviewed. The patient received dialysis yesterday I did discuss the case with Dr. Matthews who is our rand cementer. The patient was given vancomycin as well as ceftriaxone for likely typical pneumonia. He was also treated for COPD with a nebulizer and a dose of steroids his lactate is currently normal and he has remained normotensive. The patient's previous hospitalizations have been reviewed his EKG was interpreted by me as showing a sinus rhythm with a left axis deviation and nonspecific ST abnormalities I interpreted the x-ray the EKG as abnormal the time of the interpretation was 1559. Patient Will be discussed to the with the hospitalist patient will be admitted to the hospitalist. The patient is confused this is possibly secondary to polypharmacy as he is on gabapentin Percocet and benzodiazepines, the patient's confusion has improved slightly with 500 cc of fluid that has been administered in the emergency department. Departure Admitted to Inpatient Unit: yes, to hospitalist Impression: Primary Impression: Altered mental status Qualified Codes: R41.82 - Altered mental status, unspecified Additional Impressions: Acute exacerbation of chronic obstructive pulmonary disease Chronic kidney disease (CKD), stage IV (severe) Febrile Qualified Codes: R50.9 - Fever, unspecified Pneumonia Qualified Codes: J18.9 - Pneumonia, unspecified organism Referrals: NO PRIMARY CARE PROVIDER (PCP) Signature Scribe Signature: no scribe Attestation: The note accurately reflects work and decisions made by me.Van Michel MD 09/07/25 09:49 VAN MICHEL MD Sep 04, 2025 16:00
[2025-09-04] MEDS: CefTRIAXone 2gm/D5W 50ml BAG 50 ML IV ONE (16:07)
[2025-09-04] MEDS: ipratropium/albuterol 3ml nebule NEB ONE (16:08)
[2025-09-04 16:09] VITALS: PULSE 82; RESP 19; O2SAT 98
[2025-09-04 16:09] LABS: ABG BASE EXCESS 2.9 mmol/L (-2.0-3.0); ABG HCO3 28.2 mmol/L (21.0-28.0); ABG OXYGEN SATURATION 95.4 % (94.0-98.0); ABG PCO2 (T) 51.2 mmHg (35.0-48.0); ABG PH (T) 7.367 (7.350-7.450); ABG PO2 (T) 93.8 mmHg (83.0-108.0); ALLEN'S TEST POSITIVE; FCOHb 2.3 % (0.5-1.5); FHHb 4.5 % (0.0-5.0); FIO2 100.0 mmHg/%; FLOW 15 L/min; FMetHb 0.3 % (0.0-1.5); FO2Hb 92.9 % (94.0-98.0); MODE MASK - NRB; PATIENT TEMPERATURE 38.7; TOTAL HEMOGLOBIN 8.3 G/dl (13.5-17.5)
[2025-09-04 16:13] LABS: MEAN PLATELET VOLUME 6.8 FL (7.4-10.4); RED CELL DISTRIBUTION WIDTH 22.0 % (11.5-14.5)
[2025-09-04 16:16] VITALS: PULSE 101; RESP 19; O2SAT 98
[2025-09-04 16:18] VITALS: PULSE 82; RESP 16; O2SAT 93
--- NOTE | 2025-09-04 16:22 | RADIOLOGY REPORT ---
CLINICAL HISTORY: SEPSIS TECHNIQUE: Single view of the chest was obtained. COMPARISON: DI CHEST,SINGLE VIEW on DOS: 04/13/25, DI CHEST,SINGLE VIEW on DOS: 04/08/25, DI CHEST,SINGLE VIEW on DOS: 04/04/25, DI CHEST,SINGLE VIEW on DOS: 01/17/25, DI CHEST,SINGLE VIEW on DOS: 01/03/25 FINDINGS: The heart size and pulmonary vasculature are normal. There is mild bibasilar atelectasis. IMPRESSION: NO ACUTE CARDIOPULMONARY PROCESS.
[2025-09-04 16:27] LABS: CREATININE 5.95 MG/DL (0.60-1.10); PRO BRAIN NATRIURETIC PEPTIDE 5905 PG/ML (0-125); TOTAL CARBON DIOXIDE 34.1 MMOL/L (24-32); eCRCL 10 ML/MIN; eGFR 9 ML/MIN
[2025-09-04 16:37] LABS: BANDS% (MANUAL) 6.0 % (0-10); LYMPHOCYTES % (MANUAL) 2.0 % (21-51); MONOCYTES % (MANUAL) 7.0 % (2-12); NEUTROPHILS % (MANUAL) 85.0 % (42-75); PLATELET ESTIMATE NORMAL
[2025-09-04 16:38] LABS: ELLIPTOCYTES FEW
[2025-09-04] MEDS ORDERED: vancomycin/NS 1 GM ADD-VANTAGE 250 ML IV PRN (16:45)
[2025-09-04] MEDS: normal saline 1000ML IV soln IVB ONE (17:15)
[2025-09-04] MEDS: vancomycin/NS 1 GM ADD-VANTAGE 250 ML X 1 DOSE IV ONE (17:29)
[2025-09-04] MEDS ORDERED: magnesium sulf-water 4G/100mL 100 ML IV PRN (18:00)
[2025-09-04] MEDS ORDERED: potassium Cl 40MEQ/1/2NS 520ml 520 ML IV PRN (18:00)
[2025-09-04] MEDS ORDERED: ondansetron/PF 4mg/2ml inj IV PRN (18:00)
[2025-09-04] MEDS ORDERED: magnesium sulf-water 2g/50mL 50 ML IV PRN (18:00)
[2025-09-04] MEDS ORDERED: magnesium Cl slow-release 64mg tablet PO PRN (18:00)
[2025-09-04] MEDS ORDERED: potassium Cl 20 mEq SR tablet PO PRN ×2 (18:00)
--- NOTE | 2025-09-04 18:24 | HISTORY AND PHYSICAL ---
History & Physical Providers to CC ~ History of Present Illness Reason for Admit\Complaint: Level of consciousness and shortness of breath History of Present Illness The patient is a 70-year-old male with a history of renal failure COPD and CHF who was normally on home oxygen.The patient was confused and mumbling and unable to answer questions or follow commands. The patient is unable to provide any comprehensive history. History was obtained from ER records and old visit records. The patient's significant other the other returned and found the patient confused and in respiratory distress. Further workup done in ER procalcitonin 21.76 WBC and lactic acid normal , signs of possible pneumonia in x-ray chest. Creatinine 5.95 GFR nine potassium 4.3 BNP 5905, patient was requiring 15 L of oxygen when I evaluated the patient. Hospitalist services contacted for admission for possible pneumonia altered level of consciousness end-stage renal disease on dialysis and COPD. Allergies: Coded Allergies: Iodinated Contrast Media (Verified Allergy, Severe, SOB, DIAPHORETIC, 09/04/25) bee venom protein (honey bee) (Verified Allergy, Unknown, 09/04/25) iodine (Verified Adverse Reaction, Intermediate, SEE COMMENTS, 09/04/25) 1998 post ivp- pt c/o chest and abd pain- to er- no treatment needed- resolved. Home Medications Home Medications Active Probiotic (Lactobacillus Acidophilus) 10 Billion Cell Capsule 1 Each PO DAILY 14 Days Reported Aspir 81 (Aspirin) 81 Mg Tablet.dr 1 Tab PO DAILY 30 Days Fluticasone Propionate 50 Mcg/Actuation Lam[place].susp 2 Sprays BOTHNARES DAILY Prilosec (Omeprazole) 40 Mg Capsule 2 Cap PO BID Midodrine Hcl 10 Mg Tablet 1 Tab PO DAILY Amiodarone HCl 200 Mg Tablet 1 Tab PO BID Gabapentin 600 Mg Tablet 0.5 Tab PO HS 30 Days Flomax* (Tamsulosin HCl) 0.4 Mg Cap.sr.24h 1 Cap PO DAILY 30 Days Coreg* (Carvedilol) 12.5 Mg Tablet 0.5 Tablet PO BID Multi Vitamin Daily (Multivitamin) 1 Each Tablet 1 Tab PO DAILY 30 Days Fish Oil 1,000 Mg Ec Softgel ([place]-3/Dha/Epa/Fish Oil) 300 Mg-1,000 Mg Capsule.dr 1 Cap PO Q12H 30 Days Dialyvite Tablet (Folic Acid/Vitamin B Comp W-C) Unknown Strength Tablet 1 Tab PO DAILY 30 Days Modafinil 200 Mg Tablet 1 Tab PO DAILY PRN Trelegy Ellipta 100-62.5-25 (Fluticasone/Umeclidin/Vilanter) 100-62.5 Blst.w.dev 1 Puffs INH QAM Calcium Acetate 667 Mg Capsule 2 Cap PO TID Diazepam 5 Mg Tablet 5 Mg PO DAILY PRN 30 Days Percocet 10-325 mg Tablet (Oxycodone HCl/Acetaminophen) 10 Mg-325 Mg Tablet 1 Tab PO Q8H PRN MDD 6 Tablet(s) Duloxetine HCl 60 Mg Capsule.dr 60 Mg PO DAILY 30 Days Past Medical History Past Medical History Atrial Fibrillation, Congestive Heart Failure, Hypertension, COPD, Gastritis, GERD, Acute Kidney Injury, Chronic Kidney Disease, Dialysis, Kidney Stones, UTI, Chronic Back Pain, Bipolar, Depression Past Surgical History Surgical History Comment appendectomy, cholecystectomy, orthopedic surgeries, other Other Past Surgical History: Dental surgery. Av fistula placement Family History Family History: (DM Type 2) Diabetes mellitus type 2 MOTHER ( ), , Age: 68, Cause: of unknown cause FH: breast cancer MOTHER ( ), , Age: 68, Cause: of unknown cause FH: stroke FATHER, , Age: 69, Cause: of unknown cause Past Social History Social History Comment Unable to obtain complete social h/o due to altered mental status ROS ROS Unable to obtain complete ROS: altered mental status Exam Vitals: Vital Signs Date Time Temp Pulse Resp B/P (MAP) Pulse Ox O2 Delivery O2 Flow Rate FiO2 09/04/25 17:35 74 19 112/52 (72) 97 15.0 09/04/25 16:16 Salter Nasal Cannula* 71 09/04/25 15:48 101.6 General: General-patient not in any acute distress, appeared lethargic chronically ill- appearing, morbidly obese HEENT-atraumatic normocephalic, neck supple without elevated JVD, No lymphadenopathy bilaterally. Eyes-no icterus or pallor seen in eyes Chest-lung crackles present to auscultation bilaterally over lower lungs rest of the lung sounds decreased bilaterally, breathing nonlabored no tachypnea, no wheezing Heart-S1-S2 normal, regular heart rate no murmur Abdomen bowel sounds positive on auscultation, soft nondistended nontender no guarding, no rigidity Skin no active skin rash Neurology-grossly intact, nonfocal alert awake oriented Extremity- shiny legs 1+ pedal edema, not able to move lower extremities Psychiatry - patient is confused but not agitated cooperated during physical examination Diagnostic Data Last Recorded Lab Results: 09/04/256 09/04/251555 Advance Care Planning Advanced Care plannin - 30 Minutes Additional Plan This is a 69-year-old male with past medical history of Charcot's disease (wheelchair bound), heavy tobacco use, COPD, atrial fibrillation, chronic kidney disease or dialysis chronic indwelling Patricia catheter with recurrent UTIs, CHF, hypertension, GERD, chronic back pain was brought to the ED by EMS due to altered level of consciousness and shortness of breaths.Further workup done in ER procalcitonin 21.76 WBC and lactic acid normal , signs of possible pneumonia in x-ray chest. Creatinine 5.95 GFR nine potassium 4.3 BNP 5905, patient was requiring 15 L of oxygen when I evaluated the patient. Hospitalist services contacted for admission for possible pneumonia altered level of consciousness end-stage renal disease on dialysis and COPD. # sepsis and possible pneumonia- patient is started on IV antibiotic therapy, he got IV fluid in ER. Further sepsis workup ordered and we will follow the blood cultures. # diastolic congestive heart failure- started on IV Lasix and we will continue to monitor renal function patient is on dialysis currently # end-stage renal disease on dialysis-Dr. Coker aware regarding this patient's admission # altered level of consciousness likely secondary to sepsis and possible pneumonia. We will continue to monitor patient's labs and vitals closely . history of Charcot's disease (wheelchair bound), Code status discussed with the patient patient wishes patient wants to stay full code. Time spent in discussing code status 16 minutes. Even though patient was mildly lethargic he was able to understand questions regarding advanced care directives. We will do home medication reconciliation once updated in electronic by nursing staff or pharmacist. Further management depending on response to treatment and as per recommendation by Nephrology specialist I will continue to follow patient in a.m. Date of Service: Sep 04, 2025 Billing Provider: NIRMALA COLE MD Common Visit Codes: 04402-[id number] INP/OBS CARE (HIGH) Secondary Visit Codes: 52675-[id number] CARE PLAN 30 MINUTES NIRMALA COLE MD Sep 04, 2025 18:24
[2025-09-04 22:45] VITALS: BP 105/48; PULSE 64; RESP 17; TEMP 98.3; O2SAT 96
[2025-09-04 22:54] LABS: LEUKOCYTE ESTERASE ,URINE LARGE (Neg); NITRITES, URINE NEGATIVE (Neg); OCCULT BLOOD,URINE LARGE (Neg)
[2025-09-04 23:03] LABS: UA COLLECTION TYPE CLN CATCH MIDSTREAM
[2025-09-04 23:04] LABS: MUCUS STRANDS NONE SEEN /LPF (Neg); SQUAMOUS EPITHELIAL CELL,UR FEW /LPF (FEW)
--- NOTE | 2025-09-04 23:42 | PROGRESS NOTE ---
Progress Note Dictate Providers to CC ~ Progress Note: I'm not sure where or when Stephen dialyzes, but his chems suggest perrhaps yesterday. We'll dialyze tomorrow when I can figure out when he was last dialyzed. Presumed pneumonia, but note leukocyte esterase and pyuria suggest UTI. Please get blood cultures. Antibiotic Ordered?: Yes Objective Vitals Vital Signs Date Time Temp Pulse Resp B/P (MAP) Pulse Ox O2 Delivery O2 Flow Rate FiO2 09/04/25 20:13 72 16 143/74 (97) 98 09/04/25 19:25 99.2 09/04/25 17:35 15.0 09/04/25 16:16 Salter Nasal Cannula* 71 Lab Results: 09/04/25 1556 09/04/25 1556 GERARD RACHEL MD Sep 04, 2025 23:42
[2025-09-05] VITALS (27 sets, daily range): BP systolic 86–130; BP diastolic 46–83; PULSE 62–92; RESP 14–20; TEMP 97–98.1; O2SAT 71–100
[2025-09-05] MEDS: heparin, porcine 5000 units/ml vial SQ SCH (01:10)
[2025-09-05 03:36] LABS: MEAN PLATELET VOLUME 6.6 FL (7.4-10.4); RED CELL DISTRIBUTION WIDTH 21.0 % (11.5-14.5)
[2025-09-05 03:45] LABS: CREATININE 6.71 MG/DL (0.60-1.10); TOTAL CARBON DIOXIDE 33.1 MMOL/L (24-32); eCRCL 9 ML/MIN; eGFR 8 ML/MIN
[2025-09-05] MEDS: VANCOMYCIN LEVEL IV ONE (03:59)
[2025-09-05] MEDS ORDERED: FLU VACC TS2025-26(6MOS UP)/PF (FLULAVAL) 45 MCG/0.5 ML SYRINGE IMVAC ONE (06:10)
[2025-09-05] MEDS: CefTRIAXone 2gm/D5W 50ml BAG 50 ML IV SCH (07:37)
[2025-09-05] MEDS: HYDROcodone/acetaminophen 10/325mg tab PO PRN (07:38)
[2025-09-05] MEDS ORDERED: FLUT1BLS4 INH (09:49)
[2025-09-05] MEDS: azithromycin/NS 500mg/250ml 250 ML IV SCH (10:12)
--- NOTE | 2025-09-05 10:44 | PROGRESS NOTE ---
Progress Note Dictate Providers to CC ~ Progress Note: When Stephen's project coordinator found him disoriented at home on the floor he was off his oxygen. He is normally on 4 L. Chest x-ray shows very high diaphragms. White count and cultures so far are negative. He had normal dialysis on . I have given orders for that today. He was very hot when 1st found but has been afebrile now on antibiotics. I would like to give him pulmonary toilet to try to deal with his high diaphragms which have always been an issue. 20-30 white cells in the urine but this is pretty well standard for an oliguric patient. Antibiotic Ordered?: Yes Objective Vitals Vital Signs Date Time Temp Pulse Resp B/P (MAP) Pulse Ox O2 Delivery O2 Flow Rate FiO2 09/05/25 09:04 72 20 95 15.0 09/05/25 06:00 97.4 114/51 (72) High Flow Nasal Cannula 09/05/25 00:00 71 Lab Results: 09/05/25 0315 09/05/25 0315 HEART Score No evidence of cardiac dysfunction at this point. Dialysis is ordered. GERARD RACHEL MD Sep 05, 2025 10:44
[2025-09-05] MEDS: LIDOcaine 1% (10mg/ml) 2ml vial SQ ONE (11:40)
[2025-09-05] MEDS: heparin 1,000 units/ml 10ml inj IV ONE (13:42)
[2025-09-05] MEDS: EPOETIN ALFA-EPBX 20,000 UNIT/ML 1 ML MDV IV ONE (13:42)
[2025-09-05] MEDS: heparin 1,000 units/ml 10ml inj HE ONE (13:43)
[2025-09-05] MEDS ORDERED: albuterol 2.5 MG/3 ML nebule NEB PRN (14:40)
--- NOTE | 2025-09-05 16:14 | PROGRESS NOTE- Residence ---
Progress Note - Resident Providers to CC Resident Creating Document: [employer] SAL[employer] RES ~ Antibiotic Timeout Antibiotic Ordered?: Yes Subjective Patient was seen at bedside. Patient is oriented to person, place and time. Patient still continues to have shortness of breath. Patient undergoing hemodialysis. Objective Vital Signs Date Time Temp Pulse Resp B/P (MAP) Pulse Ox O2 Delivery O2 Flow Rate FiO2 09/05/25 14:45 97.8 65 20 112/58 (76) 99 High Flow Nasal Cannula 10.0 09/05/25 08:00 71 Result Diagram: 09/05/2531409/05/25314 Awake , alert and oriented to time,place, person, chronically ill-appearing, morbidly obese, mild distress HEENT: Atraumatic, normocephalic, PERRLA, EOMI, anicteric sclera ; pink conjunctiva, moist mucos membranes Neck: Trachea midline. Supple, normal range of motion, no JVD, no lymphadenopathy Chest and Respiratory: Decreased breath sounds, crackles bilaterally, no tachypnea, wheezing, ronchi,rubs .Chest wall is symmetric and without deformity. Cardiac: S1, S2 heard,Regular rate and rhythm, no murmurs heard. Abdomen: Soft, No tenderness, No guarding or rigidity, Cleaning's sign negative. normal bowel sounds x4 quadrant, no hepatosplenomegaly MSK: Range of motion of all extremities are normal. There is no joint pain or joint swelling or joint erythema. There is no muscle pain or tenderness or swelling. Extremities: Grade 1 pedal edema, not able to move lower extremities. av fistula on right arm warm, well-perfused, No cyanosis, clubbing, 2+ pulses felt Neurological: Speech is clear, alert, and oriented x 4. No sensory deficits. Cranial nerves II-XII intact. Skin: Warm and dry Psychiatry: Affect and mood are normal Advance Care Planning Advanced Care plannin - 30 Minutes Assessment Assessment Acute metabolic encephalopathy 2/2 Community-acquired pneumonia Covering Gram-positive, Gram-negative and atypical organisms Sepsis, POA Rapid COVID test test was negative Chest x-ray no acute cardiopulmonary process and mild bibasilar atelectasis. WBC is in normal limits Lactic acid level down trended to 0.3 Procalcitonin is 21.76 Preliminary blood culture showed no growth Continue IV Rocephin 1 g and IV Zithromax 500 mg Vancomycin discontinued today Acute hypoxemia respiratory failure 2/2 COPD exacerbation and pneumonia Respiratory acidosis with mild compensatory alkalosis Home oxygen dependent maintain oxygen saturation between 90-92%, use BiPAP if needed Currently on 10 L of high-flow nasal cannula DuoNebs albuterol/ipratropium q.4h PRN Nebulization with albuterol q.2h p.r.n. Nebulization with budesonide q.12h 125 mg IV Solu-Medrol was given in ER Started on 60 mg of IV Solu-Medrol b.i.d. daily today Incentive spirometry Acute on chronic HFpEF (Ef is 50-55% on 01/17/2025) BNP elevated (5900), baseline BNP is 2791 on 08/09/2025 CXR showed pulmonary vascular congestion Echo pending IV Lasix 40 mg b.i.d. Sit I&O , daily weights, Fluid restriction ESRD, dialysis dependent, av fistula on right arm Creatinine is 6.71, EGFR is 8 Dr. Christophe Coker follows the patient Patient underwent 1 session of Hemodialysis today HBsAg pending Normocytic normochromic anemia, likely anemia of chronic disease H&H are 7.9/24.8 Transfuse PRBC if hemoglobin level is less than 7 Monitor H&H History of Charcot's disease Morbid obesity BMI 42.5 Patient uses electrical wheelchair bound Hypertension Continue home medication carvedilol Code status: Full code DVT prophylaxis : Heparin q.8h GI prophylaxis: Omeprazole Nutrition: Renal diet Physical therapy: ordered Line/tube: PIV Disposition: Continue Medical management Resident attestation The above note has been reviewed and supervised by a senior resident PGY3 Patient was seen, examined and discussed with the attending physician Abdullahi Sales MD Internal Medicine Resident, PGY 1 Date of Service: Sep 05, 2025 Billing Provider: RENUKA PAL MD Common Visit Codes: [id number] INP/OBS CARE(HIGH) [employer], RES Sep 05, 2025 16:14 RENUKA PAL MD Sep 07, 2025 06:30
[2025-09-05] MEDS: ipratropium/albuterol 3ml nebule NEB SCH ×2 (16:29→19:54)
[2025-09-05] MEDS: budesonide 0.5mg/2ml UD nebule IH SCH (19:56)
[2025-09-05] MEDS: OMEGA-3/DHA/EPA/FISH OIL 1 EACH CAPSULE.DR PO SCH (20:17)
[2025-09-05] MEDS: calcium acetate 667mg (PhosLO) capsule PO SCH (20:18)
[2025-09-05] MEDS: pantoprazole 40mg Tablet.DR PO SCH (20:20)
[2025-09-05] MEDS: carvedilol 6.25mg tablet PO SCH (22:02)
[2025-09-06] VITALS (19 sets, daily range): BP systolic 105–142; BP diastolic 51–69; PULSE 63–80; RESP 12–22; TEMP 97.4–98.2; O2SAT 75–99
[2025-09-06] MEDS: VANCOMYCIN LEVEL IV SCH (03:00)
[2025-09-06 06:35] LABS: MEAN PLATELET VOLUME 6.8 FL (7.4-10.4); RED CELL DISTRIBUTION WIDTH 20.4 % (11.5-14.5)
[2025-09-06 07:07] LABS: CREATININE 5.15 MG/DL (0.60-1.10); TOTAL CARBON DIOXIDE 31.2 MMOL/L (24-32); eCRCL 12 ML/MIN; eGFR 11 ML/MIN
[2025-09-06] MEDS: multivitamins, therapeutics tablet PO SCH (08:22)
[2025-09-06] MEDS: aspirin 81mg, enteric-coated 1 TAB TABLET.DR PO SCH (08:23)
[2025-09-06] MEDS: duloxetine 30mg CAPSULE.DR PO SCH (08:23)
--- NOTE | 2025-09-06 08:44 | PROGRESS NOTE ---
Progress Note Dictate Providers to CC ~ Progress Note: Breathing much better, FiO2 down to 8 L. I think over the years his high diaphragms have been a consistent part of his respiratory failure. The other issue has been bladder retention and doing or not doing straight cathing. Apparently that isn't a problem right now but we will check bladder scan. Cultures are negative he is breathing easily. Potassium is still 5.2 in spite of dialysis yesterday with 2 L fluid removal. I will order next dialysis for tomorrow. It encourage ambulation and out of bed as much as possible. Antibiotic Ordered?: Yes Objective Vitals Vital Signs Date Time Temp Pulse Resp B/P (MAP) Pulse Ox O2 Delivery O2 Flow Rate FiO2 09/06/25 06:00 97.6 69 22 142/69 (93) 91 High Flow Nasal Cannula 8.0 09/06/25 03:31 45 Lab Results: 09/06/25 0545 09/06/25 0545 Sepsis Screening Skin Color: Normal GERARD RACHEL MD Sep 06, 2025 08:44
[2025-09-06] MEDS: modafinil 100mg tablet PO PRN (13:26)
--- NOTE | 2025-09-06 14:53 | PROGRESS NOTE- Residence ---
Progress Note - Resident Providers to CC Resident Creating Document: OPAL SALES, KRISHNA ~ Antibiotic Timeout Antibiotic Ordered?: Yes Subjective Patient was seen at bedside. Patient is oriented to person, place and time. Patient endorses that his shortness of breath improved. No acute overnight symptoms noted. Patient endorses that he slept comfortably with BiPAP Objective Vital Signs Date Time Temp Pulse Resp B/P (MAP) Pulse Ox O2 Delivery O2 Flow Rate FiO2 09/06/25 12:10 69 16 High Flow Salter 6.0 48 09/06/25 12:05 95 09/06/25 11:00 97.9 105/52 (69) Result Diagram: 09/06/25 0545 09/06/25 0545 Awake , alert and oriented to time,place, person, chronically ill-appearing, morbidly obese, not in distress HEENT: Atraumatic, normocephalic, PERRLA, EOMI, anicteric sclera ; pink conjunctiva, moist mucos membranes Neck: Trachea midline. Supple, normal range of motion, no JVD, no lymphadenopathy Chest and Respiratory: Mildly Decreased breath sounds, crackles bilaterally, no tachypnea, wheezing, ronchi,rubs .Chest wall is symmetric and without deformity. Cardiac: S1, S2 heard,Regular rate and rhythm, no murmurs heard. Abdomen: Soft, No tenderness, No guarding or rigidity, Cleaning's sign negative. normal bowel sounds x4 quadrant, no hepatosplenomegaly MSK: Range of motion of all extremities are normal. There is no joint pain or joint swelling or joint erythema. There is no muscle pain or tenderness or swelling. Extremities: Grade 1 pedal edema, not able to move lower extremities. av fistula on right arm warm, well-perfused, No cyanosis, clubbing, 2+ pulses felt Neurological: Speech is clear, alert, and oriented x 4. No sensory deficits. Cranial nerves II-XII intact. Skin: Warm and dry Psychiatry: Affect and mood are normal Advance Care Planning Advanced Care plannin - 30 Minutes Assessment Assessment Acute metabolic encephalopathy , POA resolved 2/2 Community-acquired pneumonia Covering Gram-positive, Gram-negative and atypical organisms Sepsis, POA Rapid COVID test test was negative Chest x-ray no acute cardiopulmonary process and mild bibasilar atelectasis. WBC is in normal limits Lactic acid level down trended to 0.3 Procalcitonin is 21.76 Preliminary blood culture showed no growth Continue IV Rocephin 1 g and IV Zithromax 500 mg Vancomycin discontinued today 09/06/25: White count is 3.8, even though procalcitonin is 27.86 patient is improving clinically Continue IV Rocephin 1 g and IV Zithromax 500 mg Acute hypoxemia respiratory failure 2/2 COPD exacerbation Pneumonia(covering Gram-positive, Gram-negative and atypical organisms) Respiratory acidosis with mild compensatory alkalosis Home oxygen dependent maintain oxygen saturation between 90-92%, use BiPAP if needed Currently on 10 L of high-flow nasal cannula DuoNebs albuterol/ipratropium q.4h PRN Nebulization with albuterol q.2h p.r.n. Nebulization with budesonide q.12h 125 mg IV Solu-Medrol was given in ER Started on 60 mg of IV Solu-Medrol b.i.d. daily today Incentive spirometry 09/06/25: Nineteen in saturation >90%, Patient is improving, downgrading high-flow nasal cannula (6L), use BiPAP if needed Continue nebulization and incentive spirometry Continue IV Solu-Medrol 60 mg b.i.d. Acute on chronic HFpEF (Ef is 50-55% on 01/17/2025) BNP elevated (5900), baseline BNP is 2791 on 08/09/2025 CXR showed pulmonary vascular congestion Echo pending IV Lasix 40 mg b.i.d. Sit I&O , daily weights, Fluid restriction 09/06/25: Negative fluid balance of 550mL Continue IV Lasix 40 mg b.i.d. Fluid restriction ESRD, dialysis dependent, av fistula on right arm Creatinine is 6.71, EGFR is 8 Dr. Christophe Coker follows the patient Patient underwent 1 session of Hemodialysis today HBsAg pending 09/06/25: Cr is 5.15 Patient improved significantly after hemodialysis HBsAg pending Normocytic normochromic anemia, likely anemia of chronic disease H&H are 7.9/24.8 Transfuse PRBC if hemoglobin level is less than 7 Monitor H&H History of Charcot's disease Morbid obesity BMI 42.5 Patient uses electrical wheelchair bound Hypertension Continue home medication carvedilol Code status: Full code DVT prophylaxis : Heparin q.8h GI prophylaxis: Omeprazole Nutrition: Renal diet, fluid restriction Physical therapy: ordered Line/tube: PIV Disposition: Continue Medical management Resident attestation The above note has been reviewed and supervised by a senior resident PGY3 Patient was seen, examined and discussed with the attending physician Abdullahi Sales MD Internal Medicine Resident, PGY 1 Date of Service: Sep 06, 2025 Billing Provider: RENUKA PAL MD Common Visit Codes: [id number] INP/OBS CARE(HIGH) OPAL SALES, RES Sep 06, 2025 14:53 RENUKA PAL MD Sep 07, 2025 06:31
[2025-09-07] VITALS (16 sets, daily range): BP systolic 101–156; BP diastolic 50–67; PULSE 60–86; RESP 12–20; TEMP 97.9–98.3; O2SAT 92–98
[2025-09-07] MEDS: HYDROcodone/acetaminophen 5mg/325mg tablet PO PRN (00:06)
[2025-09-07 06:09] LABS: MEAN PLATELET VOLUME 6.8 FL (7.4-10.4); RED CELL DISTRIBUTION WIDTH 19.8 % (11.5-14.5)
[2025-09-07 06:34] LABS: CREATININE 7.23 MG/DL (0.60-1.10); TOTAL CARBON DIOXIDE 27.4 MMOL/L (24-32); eCRCL 8 ML/MIN; eGFR 7 ML/MIN
[2025-09-07] MEDS: LIDOcaine 1% (10mg/ml) 2ml vial SQ ONE (07:24)
[2025-09-07] MEDS: EPOETIN ALFA-EPBX 20,000 UNIT/ML 1 ML MDV IV ONE (07:43)
[2025-09-07] MEDS: heparin 1,000 units/ml 10ml inj IV ONE (11:03)
[2025-09-07] MEDS: heparin 1,000unit/ml 10ml vial 10 ML IV ONE (11:04)
[2025-09-07] MEDS ORDERED: LEVO250T74 PO (11:39)
--- NOTE | 2025-09-07 13:42 | PROGRESS NOTE- Residence ---
Progress Note - Resident Providers to CC Resident Creating Document: OLY TAYLOR, RES ~ Subjective Patient was seen at bedside. Patient is oriented to person, place and time. Patient endorses that his shortness of breath improved. No acute overnight symptoms noted. Patient endorses that he slept comfortably with BiPAP Objective Vital Signs Date Time Temp Pulse Resp B/P (MAP) Pulse Ox O2 Delivery O2 Flow Rate FiO2 09/07/25 12:26 12 09/07/25 12:14 80 Nasal Cannula 4.0 09/07/25 12:06 95 36 09/07/25 11:00 98.2 117/55 (75) Result Diagram: 09/07/25 0551 09/07/25 0551 Assessment Assessment Acute metabolic encephalopathy , POA resolved 2/2 Community-acquired pneumonia Covering Gram-positive, Gram-negative and atypical organisms Sepsis, POA Rapid COVID test test was negative Chest x-ray no acute cardiopulmonary process and mild bibasilar atelectasis. WBC is in normal limits Lactic acid level down trended to 0.3 Procalcitonin is 21.76 Preliminary blood culture showed no growth Continue IV Rocephin 1 g and IV Zithromax 500 mg Vancomycin discontinued today 09/06/25: White count is 3.8, even though procalcitonin is 27.86 patient is improving clinically Continue IV Rocephin 1 g and IV Zithromax 500 mg Acute hypoxemia respiratory failure 2/2 COPD exacerbation Pneumonia(covering Gram-positive, Gram-negative and atypical organisms) Respiratory acidosis with mild compensatory alkalosis Home oxygen dependent maintain oxygen saturation between 90-92%, use BiPAP if needed Currently on 10 L of high-flow nasal cannula DuoNebs albuterol/ipratropium q.4h PRN Nebulization with albuterol q.2h p.r.n. Nebulization with budesonide q.12h 125 mg IV Solu-Medrol was given in ER Started on 60 mg of IV Solu-Medrol b.i.d. daily today Incentive spirometry 09/06/25: Nineteen in saturation >90%, Patient is improving, downgrading high-flow nasal cannula (6L), use BiPAP if needed Continue nebulization and incentive spirometry Continue IV Solu-Medrol 60 mg b.i.d. Acute on chronic HFpEF (Ef is 50-55% on 01/17/2025) BNP elevated (5900), baseline BNP is 2791 on 08/09/2025 CXR showed pulmonary vascular congestion Echo pending IV Lasix 40 mg b.i.d. Sit I&O , daily weights, Fluid restriction 09/06/25: Negative fluid balance of 550mL Continue IV Lasix 40 mg b.i.d. Fluid restriction ESRD, dialysis dependent, av fistula on right arm Creatinine is 6.71, EGFR is 8 Dr. Gerard Rachel follows the patient Patient underwent 1 session of Hemodialysis today HBsAg pending 09/06/25: Cr is 5.15 Patient improved significantly after hemodialysis HBsAg pending Normocytic normochromic anemia, likely anemia of chronic disease H&H are 7.9/24.8 Transfuse PRBC if hemoglobin level is less than 7 Monitor H&H History of Charcot's disease Morbid obesity BMI 42.5 Patient uses electrical wheelchair bound Hypertension Continue home medication carvedilol Code status: Full code DVT prophylaxis : Heparin q.8h GI prophylaxis: Omeprazole Nutrition: Renal diet, fluid restriction Physical therapy: ordered Line/tube: PIV Disposition: Continue Medical management Resident attestation The above note has been reviewed and supervised by a senior resident PGY3 Patient was seen, examined and discussed with the attending physician Abdullahi aSles MD Internal Medicine Resident, PGY 1 Date of Service: Sep 07, 2025 Billing Provider: GERARD RACHEL MD, PRAVAHIKA, RES Sep 07, 2025 13:42
[2025-09-07] MEDS ORDERED: LIDOcaine 1% 30ml preserv. free vial IJ STA (14:00)
--- NOTE | 2025-09-07 14:43 | PROGRESS NOTE- Residence ---
Progress Note - Resident Providers to CC Resident Creating Document: OLY HALL, KRISHNA ~ Antibiotic Timeout Antibiotic Ordered?: No Subjective Patient was seen at bedside. Patient is back to his baseline at 3 L of oxygen. Endorses his breathing has improved. He has been dialyzed this morning. He is being discharged back to home today. Objective Vital Signs Date Time Temp Pulse Resp B/P (MAP) Pulse Ox O2 Delivery O2 Flow Rate FiO2 09/07/25 12:26 12 09/07/25 12:14 80 Nasal Cannula 4.0 09/07/25 12:06 95 36 09/07/25 11:00 98.2 117/55 (75) Result Diagram: 09/07/25 0551 09/07/25 0551 General: Awake, alert, obese HEENT: Conjunctiva pink, Sclera clear, Mucus Membranes moist Neck: Supple without masses and tenderness. Resp: Decreased breath sounds with some crackles bilaterally at bases. On 3 L of oxygen which is his baseline. Heart: Regular rate, rhythm, no murmurs Abdomen: Soft and non tender no organomegaly. Normal bowel sounds x4 quadrant normoactive. No guarding or rigidity. Extremities: Normal ROM, no swelling, nontender. 1+ pedal edema. Av fistula in the right arm. PROPERTY DAMAGE CLAIMS ADJUSTOR: No gross motor or sensory abnormalities. Skin: Warm and Dry Assessment Assessment Assessment This is a 70-year-old male with a history of ESRD, COPD, CHF on 3 L of oxygen at home was admitted for acute metabolic encephalopathy, acute hypoxemic respiratory failure secondary to pneumonia. End-stage renal disease, on dialysis. Hyperkalemia-improving. Patient received two sessions of dialysis while he was here, one Sunday and one today morning. Dialysis port-AV fistula in the right arm. BUN 61, sodium 130, potassium 5.0 total urine output-120 mL. Plan Dialysis will be continued outpatient Continue PhosLo t.i.d. Acute metabolic encephalopathy- Acute hypoxemic respiratory failure secondary to COPD exacerbation vs pneumonia. Currently on 3 L of oxygen which is his baseline DuoNebs p.r.n., Solu-Medrol, Received Rocephin and azithromycin. COVID test negative. Acute on chronic CHF with preserved ejection fraction Ejection fraction 50-55% Chest x-ray showed pulmonary vascular congestion On Lasix 40 b.i.d.. Anemia secondary to chronic kidney disease Hemoglobin 7.9 Received Epoetin with dialysis Oly Hall M.D PGY2 Nephrology Resident. Plan Plan On 4L FiO2. DC home, f/u at [facility] MWF, keep using cpap religiously. Apparently he no longer needs str cath's Date of Service: Sep 07, 2025 Billing Provider: GERARD RACHEL MD, PRAVAHIKA, RES Sep 07, 2025 14:42 GERARD RACHEL MD Sep 07, 2025 23:51
--- NOTE | 2025-09-07 18:40 | CARDIOLOGY REPORT ---
APPROVED REPORT EXAM: Comprehensive 2D, Doppler, and color-flow Echocardiogram. Patient Location: [address] Heart Rate: 60's bpm Rhythm: SINUS Indications SHORTNESS OF BREATH COPD CONGESTIVE HEART FAILURE Wire Puller: MD Malou Previous echo: 01-17-25 [facility] EF 50-55%, RVE, LAE, trTR 2D Dimensions RVDd 4.6 cm IVSd 0.9 (0.7-1.1cm) LVDd 4.9 cm PWd 0.9 (0.7-1.1cm) IVSs 1.6 (0.8-1.2cm) LVDs 3.2 (2.5-4.0cm) PWs 1.6 (0.8-1.2cm) LVOT Diameter 2.23 (1.8-2.4cm) LVEF(%) 62.1 (>50%) FS (%) 33.5 % SV 70.6 ml CO 4.4 L/min M-Mode Dimensions Left Atrium(MM) 5.40 (2.5-4.0cm) Aortic Root 3.02 (2.2-3.7cm) Aortic Cusp Exc 2.01 (1.5-2.0cm) Aortic Valve AoV Peak Damaso. 142.4 cm/s AoV VTI 35.0 cm AO Peak GR. 8.1 mmHg AO Mean GR. 4 mmHg LVOT VTI 25.83 cm LVOT Peak Damaso. 112.8 cm/s CURTIS(VTI)/BSA 2.87 cm2/m2 CURTIS (VTI) 2.87 cm2 AV DI 0.74 % Mitral Valve MV E Velocity 93.4 cm/s MV Peak Gr. 4 mmHg MV DECEL TIME 260 ms MV A Velocity 114.4 cm/s MV PHT 68 ms E/A Ratio 0.8 MVA (PHT) 3.24 cm2 MV VMax 103.5 cm/s TDI Lateral E' P. V 6.61 cm/s E/Lateral E' 14.1 Pulmonary Vein S1 Velocity 68.9 cm/s D2 Velocity 59.9 cm/s PVa Velocity 33.7 cm/s PVa Duration 188 msec LEFT VENTRICLE Normal LV size and wall thickness. Overall systolic function is normal. Overall LVEF is 55-60%. RIGHT VENTRICLE RV is moderately dilated with normal function. ATRIA Left atrium is moderately dilated. AORTIC VALVE Trileaflet AV appears mildly sclerotic without stenosis. No insufficiency. MITRAL VALVE Mild MV annular calcification without stenosis. Trace regurgitation. TRICUSPID VALVE TV appears structurally normal with trace regurgitation. PULMONIC VALVE Normal PV without stenosis, no insufficiency. GREAT VESSELS The aortic root is normal in size. IVC is not well visualized. PERICARDIUM Normal pericardium. No effusion. Other Information Study Quality: Adequate Conclusion Overall LVEF is 55-60%. Normal LV size and wall thickness. Overall systolic function is normal. RV is moderately dilated with normal function. Trileaflet AV appears mildly sclerotic without stenosis. No insufficiency. Mild MV annular calcification without stenosis. Trace regurgitation. TV appears structurally normal with trace regurgitation. Normal PV without stenosis, no insufficiency. Normal pericardium. No effusion.
--- NOTE | 2025-09-07 18:57 | DISCHARGE SUMMARY-Residence ---
Discharge Summary Providers to CC Resident Creating Document: OPAL HAN, RES ~ Discharge Summary Admission Diagnosis: Shortness of breaths, possible pneumonia, sepsis , ESRD on dialysis Hospital Course DATE OF ADMISSION: 09/04/2025 DATE OF DISCHARGE: 09/07/2025 Discharge Diagnosis\Comment: Acute metabolic encephalopathy , POA resolved 2/2 Community-acquired pneumonia Covering Gram-positive, Gram-negative and atypical organisms Sepsis, POA Acute hypoxemia respiratory failure 2/2 COPD exacerbation Pneumonia(covering Gram-positive, Gram-negative and atypical organisms) Respiratory acidosis with mild compensatory alkalosis Home oxygen dependent Acute on chronic HFpEF (Ef is 50-55% on 01/17/2025) ESRD, dialysis dependent, av fistula on right arm Normocytic normochromic anemia, likely anemia of chronic disease History of Charcot's disease Morbid obesity BMI 42.5 Hypertension Operations\Procedures: Hemodialysis Consultants: Dr. Christophe Coker, the [employer] professor Complications: None Condition on DC: Stable New Medications: Levofloxacin (Levofloxacin) 250 Mg Tablet 1 TAB PO DAILY for 7 Days, #7 TAB Continued Medications: Amiodarone HCl (Amiodarone HCl) 200 Mg Tablet 1 TAB PO DAILY, TAB 0 Refills Aspirin (Aspir 81) 81 Mg Tablet.dr 1 TAB PO DAILY for 30 Days, #30 TAB Calcium Acetate (Calcium Acetate) 667 Mg Capsule 2 CAP PO TID Diazepam (Diazepam) 5 Mg Tablet 5 MG PO DAILY PRN for anxiety for 30 Days, #60 TAB 0 Refills Duloxetine HCl (Duloxetine HCl) 60 Mg Capsule.dr 60 MG PO DAILY for 30 Days, #30 CAP Fluticasone Propionate (Fluticasone Propionate) 50 Mcg/Actuation Altus.susp 2 SPRAYS BOTHNARES DAILY, #16 GM 0 Refills Fluticasone/Umeclidin/Vilanter (Trelegy Ellipta 100-62.5-25) 100-62.5 Blst.w.dev 1 PUFFS INH DAILY for 30 Days, #1 EA 0 Refills Folic Acid/Vitamin B Comp W-C (Dialyvite Tablet) Unknown Strength Tablet 1 TAB PO DAILY for 30 Days, #30 TAB 0 Refills Gabapentin (Gabapentin) 600 Mg Tablet 0.5 TAB PO HS for 30 Days, #90 TAB 0 Refills Lactobacillus Acidophilus (Probiotic) 10 Billion Cell Capsule 1 EACH PO DAILY for 14 Days, #14 CAP Midodrine Hcl (Midodrine Hcl) 10 Mg Tablet 1 TAB PO DAILY, TAB 0 Refills Modafinil (Modafinil) 200 Mg Tablet 1 TAB PO DAILY PRN for ED Multivitamin (Multi Vitamin Daily) 1 Each Tablet 1 TAB PO DAILY for 30 Days, #30 TAB 0 Refills [place]-3/Dha/Epa/Fish Oil (Fish Oil 1,000 Mg Ec Softgel) 300 Mg-1,000 Mg Capsule.dr 1 CAP PO Q12H for 30 Days, #60 CAP 0 Refills Omeprazole (Prilosec) 40 Mg Capsule 2 CAP PO BID, CAP Oxycodone HCl/Acetaminophen (Percocet 10-325 mg Tablet) 10 Mg-325 Mg Tablet 1 TAB PO Q8H PRN for pain MDD 6 Tablet(s), TAB Tamsulosin Hcl* (Flomax*) 0.4 Mg Cap.sr.24h 1 CAP PO DAILY for 30 Days, #30 CAP Discontinued Medications: Carvedilol* (Coreg*) 12.5 Mg Tablet 0.5 TABLET PO BID, TABLET Discharge Summary: History of present illness: The patient is a 70-year-old male with a history of renal failure COPD and CHF who was normally on home oxygen.The patient was confused and mumbling and unable to answer questions or follow commands. The patient is unable to provide any comprehensive history. History was obtained from ER records and old visit records. The patient's significant other the other returned and found the patient confused and in respiratory distress. Course in the hospital: Patient was treated with respiratory distress and confusion. Further workup showed procalcitonin 21.76 WBC and lactic acid normal , clinical signs of pneumonia. Creatinine 5.95 ,GFR nine,potassium 4.3, BNP 5905, patient was requiring 15 L of oxygen and Rapid COVID test test was negative. Patient was treated with IV Rocephin and Zithromax, high-flow nasal cannula, DuoNebs , incentive spirometry and IV Solu-Medrol. Patient is improving, downgrading high- flow nasal cannula to 4 L of reason which is his baseline at home. Acute on chronic HFpEF: BNP elevated (5900), baseline BNP is 2791 on 08/09/2025 and CXR showed pulmonary vascular congestion.LVEf is 50-55% on 01/17/2025. patient improved and diuresed well with IV Lasix. ESRD, dialysis dependent: Creatinine is 6.71, EGFR is [address] Christophe Coker, [employer] professor was consulted. Patient underwent to show signs of hemodialysis and improved significantly. Patient condition was stable at the time of discharge. Patient was advised to compliant with home medications and follow up with PCP, nephrology. Imaging: Chest x-ray: NO ACUTE CARDIOPULMONARY PROCESS. Echocardiogram: LEFT VENTRICLE Normal LV size and wall thickness. Overall systolic function is normal. LVEF is 55-60%. RIGHT VENTRICLE RV is moderately dilated with normal function. ATRIA Left atrium is moderately dilated. AORTIC VALVE Trileaflet AV appears mildly sclerotic without stenosis. No insufficiency. MITRAL VALVE Mild MV annular calcification without stenosis. Trace regurgitation. TRICUSPID VALVE TV appears structurally normal with trace regurgitation. PULMONIC VALVE Normal PV without stenosis, no insufficiency. GREAT VESSELS The aortic root is normal in size. IVC is not well visualized. PERICARDIUM Normal pericardium. No effusion. Other Information Study Quality: Adequate Vital Signs Date Time Temp Pulse Resp B/P (MAP) Pulse Ox O2 Delivery O2 Flow Rate FiO2 09/07/25 12:26 12 09/07/25 12:14 80 Nasal Cannula 4.0 09/07/25 12:06 95 36 09/07/25 11:00 98.2 117/55 (75) Laboratory Tests Test 09/06/25 05:45 09/07/25 05:51 White Blood Count 3.8 X10'3 4.2 X10'3 Red Blood Count 2.74 X10'6 2.77 X10'6 Hemoglobin 7.9 g/dl 7.9 g/dl Hematocrit 25.0 % 24.8 % Mean Corpuscular Volume 91.4 FL 89.6 FL Mean Corpuscular Hemoglobin 28.7 PG 28.4 PG Mean Corpuscular Hemoglobin Concent 31.5 g/dL 31.7 g/dL Red Cell Distribution Width 20.4 % 19.8 % Platelet Count 131 X10'3 131 X10'3 Mean Platelet Volume 6.8 FL 6.8 FL Neutrophils (%) (Auto) 93.1 % 92.2 % Lymphocytes (%) (Auto) 5.1 % 5.6 % Monocytes (%) (Auto) 1.8 % 2.1 % Eosinophils (%) (Auto) 0 % 0 % Basophils (%) (Auto) 0 % 0.1 % Neutrophils # (Auto) 3.6 X10'3 3.8 X10'3 Lymphocytes # (Auto) 0.2 X10'3 0.2 X10'3 Monocytes # (Auto) 0.1 X10'3 0.1 X10'3 Eosinophils # (Auto) 0.0 X10'3 0.0 X10'3 Basophils # (Auto) 0.0 X10'3 0.0 X10'3 CBC Comment Sodium Level 136 MMOL/L 130 MMOL/L Potassium Level 5.2 MMOL/L 5.0 MMOL/L Chloride Level 97 MMOL/L 93 MMOL/L Carbon Dioxide Level 31.2 MMOL/L 27.4 MMOL/L Anion Gap 8 10 Blood Urea Nitrogen 39 MG/DL 61 MG/DL Creatinine 5.15 MG/DL 7.23 MG/DL Estimated GFR/1.73 m2 11 ML/MIN 7 ML/MIN BUN/Creatinine Ratio 7.6 8.4 Glucose Level 132 MG/DL 125 MG/DL Calcium Level 8.0 MG/DL 7.8 MG/DL Total Bilirubin 0.3 MG/DL 0.4 MG/DL Aspartate Amino Transf (AST/SGOT) 18 U/L 10 U/L Alanine Aminotransferase (ALT/SGPT) 21 U/L 15 U/L Alkaline Phosphatase 85 IU/L 80 IU/L Total Protein 6.5 G/DL 6.3 G/DL Albumin 2.5 G/DL 2.4 G/DL Globulin 4.0 G/DL 3.9 G/DL Albumin/Globulin Ratio 0.6 0.6 Procalcitonin 27.86 NG/ML Chemistry Comments Physical exam at discharge: Awake , alert and oriented to time,place, person, chronically ill-appearing, morbidly obese, not in distress HEENT: Atraumatic, normocephalic, PERRLA, EOMI, anicteric sclera ; pink conjunctiva, moist mucos membranes Neck: Trachea midline. Supple, normal range of motion, no JVD, no lymphadenopathy Chest and Respiratory: Diminished breath sounds & crackles bilaterally improved, no tachypnea, wheezing, ronchi,rubs .Chest wall is symmetric and without deformity. Cardiac: S1, S2 heard,Regular rate and rhythm, no murmurs heard. Abdomen: Soft, No tenderness, No guarding or rigidity, Cleaning's sign negative. normal bowel sounds x4 quadrant, no hepatosplenomegaly MSK: Range of motion of all extremities are normal. There is no joint pain or joint swelling or joint erythema. There is no muscle pain or tenderness or swelling. Extremities: Grade 1 pedal edema improved, able to move lower extremities. av fistula on right arm warm, well-perfused, No cyanosis, clubbing, 2+ pulses felt Neurological: Speech is clear, alert, and oriented x 4. No sensory deficits. Cranial nerves II-XII intact. Skin: Warm and dry Psychiatry: Affect and mood are normal Discharge instructions: Advised to follow up with PCP in 1 week Advised to follow up with western philosophy professor & compliant with dialysis (T,T,S) Advised to take levofloxacin p.o. for 7 days Advised to compliant with home medication Case of any worsening symptoms, call 911 or go to the ER immediately *Problems/Diagnosis: (1) Acute metabolic encephalopathy (2) Community acquired pneumonia (3) Sepsis (4) Acute respiratory failure with hypoxemia (5) COPD exacerbation (6) Respiratory acidosis (7) On home oxygen therapy (8) Acute on chronic heart failure with preserved ejection fraction (HFpEF) (9) ESRD (end stage renal disease) (10) Dependence on renal dialysis (11) Normocytic normochromic anemia (12) Morbid obesity (13) Hypertension Total Time Spent on D/C: > 30 Minutes Date of Service: Sep 07, 2025 Billing Provider: RENUKA PAL MD Common Visit Codes: 51042-ZHI/OBS DISCH DAY >30min OPAL HAN, RES Sep 07, 2025 18:39 RENUKA PAL MD Sep 08, 2025 08:18
[2025-09-09 05:14] LABS: HBSAG SCREEN Negative (Negative)
== END 2025-09-07 14:53 | disposition home health service (06) | DRG 871 ==
LOC: ER 15:47 → ED HOLD 18:01 → PCU 3S 22:48
PROVIDERS: ADMIT Internal Medicine; ATTEND Internal Medicine
PROC: 5A0935A Assistance with Respiratory Ventilation, Less than 24 Consecutive Hours, High Flow/Velocity Cannula (ICD-10-PCS; 2025-09-04)
PROC: 5A1D70Z Performance of Urinary Filtration, Intermittent, Less than 6 Hours Per Day (ICD-10-PCS; principal; 2025-09-05)
PROC: 5A0935A Assistance with Respiratory Ventilation, Less than 24 Consecutive Hours, High Flow/Velocity Cannula (ICD-10-PCS; 2025-09-05)
PROC: 5A09357 Assistance with Respiratory Ventilation, Less than 24 Consecutive Hours, Continuous Positive Airway Pressure (ICD-10-PCS; 2025-09-05)
PROC: 5A0935A Assistance with Respiratory Ventilation, Less than 24 Consecutive Hours, High Flow/Velocity Cannula (ICD-10-PCS; 2025-09-06)
PROC: 5A09357 Assistance with Respiratory Ventilation, Less than 24 Consecutive Hours, Continuous Positive Airway Pressure (ICD-10-PCS; 2025-09-06)
PROC: 5A1D70Z Performance of Urinary Filtration, Intermittent, Less than 6 Hours Per Day (ICD-10-PCS; 2025-09-07)
PROC: 5A09357 Assistance with Respiratory Ventilation, Less than 24 Consecutive Hours, Continuous Positive Airway Pressure (ICD-10-PCS; 2025-09-07)
DX: A41.9 Sepsis, unspecified organism (principal); G93.41 Metabolic encephalopathy; I50.33 Acute on chronic diastolic (congestive) heart failure; J18.9 Pneumonia, unspecified organism; J96.01 Acute respiratory failure with hypoxia; N18.6 End stage renal disease; J44.0 Chronic obstructive pulmonary disease with (acute) lower respiratory infection; J44.1 Chronic obstructive pulmonary disease with (acute) exacerbation; Z68.41 Body mass index [BMI] 40.0-44.9, adult; E87.3 Alkalosis; I48.91 Unspecified atrial fibrillation; K21.9 Gastro-esophageal reflux disease without esophagitis; F31.9 Bipolar disorder, unspecified; D63.1 Anemia in chronic kidney disease; E66.01 Morbid (severe) obesity due to excess calories; M54.9 Dorsalgia, unspecified; G89.29 Other chronic pain; Z80.3 Family history of malignant neoplasm of breast; Z20.822 Contact with and (suspected) exposure to COVID-19; Z82.3 Family history of stroke; Z83.3 Family history of diabetes mellitus; Z87.442 Personal history of urinary calculi; Z90.49 Acquired absence of other specified parts of digestive tract; Z99.81 Dependence on supplemental oxygen; Z99.2 Dependence on renal dialysis; Z79.899 Other long term (current) drug therapy; Z79.82 Long term (current) use of aspirin; Z99.3 Dependence on wheelchair
CPT/HCPCS: 36415; 36600; 71045; 80048; 80053; 80202; 81001; 82803; 83605; 83735; 83880; 84145; 84484; 85007; 85018; 85025; 87040; 87081; 87088; 87340; 87811; 93005; 93306; 94640; 94660; 94760; 96374; 96375; 99285; A4615; A6213; A6250; A6449; C1758; E1594; G0257; G0378; J0456; J0696; J1644; J1938; J2003; J2919; J3373; J7030; J7040; Q4081

== ENCOUNTER 2025-09-10 17:31 | Inpatient (IN) | payer BC, MEDICARE ==
[~2025-09-10] VITALS: Ht 172.7 cm; Wt 131.0 kg
[~2025-09-10 17:31] MED LIST changes: -CARV-50 PO; +LEVO250T74 PO
--- NOTE | 2025-09-10 18:23 | Physician Documentation ---
History of Present Illness General Chief Complaint: Weakness Stated Complaint: CONFUSSION Time Seen by MD: 18:22 Primary Medical Doctor: GEORGES History of Present Illness Initial Comments Patient is a 70-year-old male who who was recently discharged with a diagnosis of pneumonia, the patient was brought in for confusion. The patient's significant other states the patient was at dialysis today and received received half of dialysis when he became confused and weak. The patient was brought to our emergency department for evaluation. Patient has a history of CHF COPD and a recent diagnosis of pneumonia he has been on Levaquin. Patient has a history of end-stage renal disease he gets dialysis Sunday and Sunday. The patient denies any chest pain he denies any current shortness of breath. Medication Reconciliation Allergies: Coded Allergies: Iodinated Contrast Media (Verified Allergy, Severe, SOB, DIAPHORETIC, 09/10/25) bee venom protein (honey bee) (Verified Allergy, Unknown, 09/10/25) iodine (Verified Adverse Reaction, Intermediate, SEE COMMENTS, 09/10/25) 1998 post ivp- pt c/o chest and abd pain- to er- no treatment needed- resolved. Scheduled Amiodarone HCl (Amiodarone HCl), 1 TAB PO DAILY, (Reported) Aspirin (Aspir 81), 1 TAB PO DAILY, (Reported) Calcium Acetate (Calcium Acetate), 2 CAP PO TID, (Reported) Duloxetine HCl (Duloxetine HCl), 60 MG PO DAILY, (Reported) Fluticasone Propionate (Fluticasone Propionate), 2 SPRAYS BOTHNARES DAILY, (Reported) Fluticasone/Umeclidin/Vilanter (Trelegy Ellipta 100-62.5-25), 1 PUFFS INH DAILY, (Reported) Folic Acid/Vitamin B Comp W-C (Dialyvite Tablet), 1 TAB PO DAILY, (Reported) Gabapentin (Gabapentin), 0.5 TAB PO HS, (Reported) Lactobacillus Acidophilus (Probiotic), 1 EACH PO DAILY Levofloxacin (Levofloxacin), 1 TAB PO DAILY Midodrine Hcl (Midodrine Hcl), 1 TAB PO DAILY, (Reported) Multivitamin (Multi Vitamin Daily), 1 TAB PO DAILY, (Reported) [place]-3/Dha/Epa/Fish Oil (Fish Oil 1,000 Mg Ec Softgel), 1 CAP PO Q12H, (Reported) Omeprazole (Prilosec), 2 CAP PO BID, (Reported) Tamsulosin Hcl* (Flomax*), 1 CAP PO DAILY, (Reported) Scheduled PRN Diazepam (Diazepam), 5 MG PO DAILY PRN for anxiety, (Reported) Modafinil (Modafinil), 1 TAB PO DAILY PRN for ED, (Reported) Oxycodone HCl/Acetaminophen (Percocet 10-325 mg Tablet), 1 TAB PO Q8H PRN for pain, (Reported) Discontinued Medications Carvedilol* (Coreg*), 0.5 TABLET PO BID, (Reported) Fluticasone/Umeclidin/Vilanter (Trelegy Ellipta 100-62.5-25), 1 PUFFS INH QAM, (Reported) Discontinued Reason: patient no longer taking Past Medical History Past Medical History: Atrial Fibrillation, Congestive Heart Failure, Hypertension, COPD, Gastritis, GERD, Acute Kidney Injury, Chronic Kidney Disease, Dialysis, Kidney Stones, UTI, Chronic Back Pain, Bipolar, Depression Past Surgical History: appendectomy, cholecystectomy, orthopedic surgeries, other Other Past Surgical History: Dental surgery. Av fistula placement Smoking: Non-Smoker, Cigarettes Alcohol Use: None Drug Use: none Lives with: S/O Lives In: Home Review of Systems All Other Systems at this time: Reviewed and Negative Physical Exam Physical Exam Vital Signs: Heart Rate: 64, Respiratory Rate: 12, BP: 114/54, Pulse Oximetry: 94, Weight: 131.000 Physical Exam VITALS: Reviewed and as above. GENERAL: Somnolent but arousable, no apparent distress. HEENT: Normocephalic, atraumatic, PERRL, EOMI, dry mucosa, no erythema RESPIRATORY: Diminished breath sounds bilaterally, no respiratory distress. CHEST: No accessory muscle use, no retractions CV: Regular rate, rhythm, no edema, no murmur, No: JVD GI: Soft, non-tender, bowels sounds present, no rebound, guarding, or rigidity BACK: No CVA tenderness, or swelling MUSCULOSKELETAL: No deformities, no edema SKIN: Warm and dry, pale NEURO: Oriented x3, No motor or sensory deficit PSYCH: Normal mood and affect, no agitation Progress Results/Orders Results/Orders Orders - OHLFS,VAN Allen MD Chest,Single View (09/10/25 18:51) Cult Urine + [address] (09/10/25 21:16) Page Hospitalist (09/10/25 21:27) Fill Out Med Reconciliation (09/10/25 21:27) Completed Orders - OHLVAN WARD MD Electrocardiogram (09/10/25 18:51) Cbc/Diff (09/10/25 18:51) MG (09/10/25 18:51) Chest,Single View (09/10/25 18:51) Procalcitonin (09/10/25 18:51) Hs Troponin I W Calculations (09/10/25 18:51) Lacticsepsis (09/10/25 18:51) Ua W/Microscopic, Cult If Ind (09/10/25 20:36) Ceftriaxone 2gm/D5w 50ml Bag (Rocephin 2 (09/10/25 21:25) Direct Bili (09/10/25 18:53) CMP (09/10/25 18:53) Medications Received in ER Medications (Trade) Dose Ordered Sig/Connie Route PRN Reason Start Time Stop Time Status Last Admin Dose Admin Ceftriaxone Sodium/Dextrose 50 ml @ 100 mls/hr ONCE ONCE IV 09/10/25 21:25 09/10/25 21:54 DC 09/10/25 21:42 100 MLS/HR Vital Signs 09/10/25 09/10/25 09/10/25 09/10/25 18:03 18:22 19:04 19:30 Pulse 64 64 64 Resp 12 16 16 16 B/P (MAP) 114/54 128/69 (88) 148/77 (100) Pulse Ox 94 98 98 O2 Flow Rate 4.0 4.0 09/10/25 09/10/25 20:33 21:30 Pulse 66 63 Resp 18 13 B/P (MAP) 133/70 (91) 119/63 (81) Pulse Ox 96 95 O2 Flow Rate 4.0 0 Laboratory Tests Test 09/10/25 18:53 09/10/25 20:36 White Blood Count 6.6 Red Blood Count 3.06 L Hemoglobin 8.8 L Hematocrit 28.0 L Mean Corpuscular Volume 91.4 Mean Corpuscular Hemoglobin 28.6 Mean Corpuscular Hemoglobin Concent 31.3 L Red Cell Distribution Width 20.8 H Platelet Count 170 Mean Platelet Volume 6.7 L Neutrophils (%) (Auto) 80.9 H Lymphocytes (%) (Auto) 9.9 L Monocytes (%) (Auto) 6.6 Eosinophils (%) (Auto) 2.5 Basophils (%) (Auto) 0.1 Neutrophils # (Auto) 5.4 Lymphocytes # (Auto) 0.7 L Monocytes # (Auto) 0.4 Eosinophils # (Auto) 0.2 Basophils # (Auto) 0.0 CBC Comment Prothrombin Time 10.2 INR International Normalized Ratio 1.0 Activated Partial Thromboplast Time 29 Coagulation Comments Sodium Level 135 Potassium Level 4.2 Chloride Level 97 L Carbon Dioxide Level 32.2 H Anion Gap 6 L Blood Urea Nitrogen 48 H Creatinine 6.38 H Estimated GFR/1.73 m2 9 BUN/Creatinine Ratio 7.5 L Glucose Level 90 Lactic Acid Level 0.5 Calcium Level 8.2 L Magnesium Level 2.3 Total Bilirubin 0.4 Direct Bilirubin 0.1 Aspartate Amino Transf (AST/SGOT) 15 Alanine Aminotransferase (ALT/SGPT) 12 Alkaline Phosphatase 87 Troponin I High Sensitivity 8 Total Protein 6.2 L Albumin 2.7 L Globulin 3.5 Albumin/Globulin Ratio 0.8 L Procalcitonin 5.16 H Chemistry Comments Urine Specimen Description Straight cath Urine Color Yellow Urine Clarity Cloudy Urine pH 7.5 Urine Specific [place] 1.015 Urine Protein 100 H Urine Glucose (UA) Negative Urine Ketones Negative Urine Occult Blood Moderate H Urine Nitrite Negative Urine Bilirubin Negative Urine Urobilinogen 0.2 Urine Leukocyte Esterase Large H Urine RBC None seen Urine WBC Tntc H Urine WBC Clumps Many Urine Squamous Epithelial Cells None seen Urine Bacteria 4+ Urine Culture Indicated Indicated Volume Urine Centrifuged 10 ml Urine Comment Urine Opiates Screen Positive Urine Methadone Screen Negative Urine Fentanyl Screen Negative Urine Barbiturates Screen Negative Urine Phencyclidine Screen Negative Urine Amphetamines Screen Negative Urine Benzodiazepines Screen Negative Urine Cocaine Screen Negative Urine Cannabinoids Screen Negative Drug Screen Comment Microbiology Date/Time Source Procedure Growth Status 09/10/25 21:16 Urine Patricia Cath Urine Culture - Preliminary Culture received. Resulted Medical Decision Making Additional information obtaine: old records Findings Patient is a patient with significant history of COPD CHF and renal failure who was recently admitted to the hospital for pneumonia and discharged. The patient presents today with increased confusion at dialysis. Patient does appear to have a urinary tract infection he was treated with antibiotics in the emergency department he has remained hemodynamically stable prior hospitalizations has been reviewed. The patient was discussed with the resident the patient will be admitted to the residents. The patient's pulse oximetry was interpreted as normal and adequate. 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 The patient's 12 lead EKG demonstrates a left axis deviation a sinus rhythm rate of [address] abnormalities impression is an abnormal EKG the EKG was interpreted by myself at 6:00 p.m. Differential Diagnosis Pneumonia sepsis UTI pyelonephritis Departure Impression: Primary Impression: Weakness Additional Impressions: Confusion Acute urinary tract infection Referrals: NO PRIMARY CARE PROVIDER (PCP) Signature Scribe Signature: no scribe Attestation: The note accurately reflects work and decisions made by me.Van Michel MD 09/11/25 04:38 VAN MICHEL MD Sep 10, 2025 18:23
--- NOTE | 2025-09-10 18:54 | ELECTROCARDIOGRAPH REPORT ---
[facility] Test Date: 2025-09-10 Test Time: 17:56:01 Pat Name: ALFONSO HANDLEY Department: EMERGENCY ROOM Room: Gender: M International Guest Coordinator: : 1955 Requested By: VAN BURNS Order Number: [id number] Reading MD: Measurements Intervals [place] Rate: 64 P: 32 [place]: 208 QRS: -7 QRSD: 119 T: 29 QT: 439 QTc: 453 Interpretive Statements Sinus rhythm Nonspecific intraventricular conduction delay Low voltage, precordial leads Borderline T abnormalities, anterior leads Please click the below link to view image of tracing.
[2025-09-10 19:23] LABS: MEAN PLATELET VOLUME 6.7 FL (7.4-10.4); RED CELL DISTRIBUTION WIDTH 20.8 % (11.5-14.5)
[2025-09-10 19:29] LABS: CREATININE 6.38 MG/DL (0.60-1.10); TOTAL CARBON DIOXIDE 32.2 MMOL/L (24-32); eCRCL 10 ML/MIN; eGFR 9 ML/MIN
--- NOTE | 2025-09-10 19:54 | RADIOLOGY REPORT ---
CHEST RADIOGRAPH Indication: SEPSIS Technique: Single frontal view of the chest was obtained Comparison: DI CHEST,SINGLE VIEW on DOS: 09/04/25, DI CHEST,SINGLE VIEW on DOS: 04/13/25, DI CHEST,SINGLE VIEW on DOS: 04/08/25 FINDINGS: Lines and Tubes: None Lungs: Crowding with a diffuse interstitial prominence. Bilateral lower lung zone linear densities. Indistinctness of the left hemidiaphragm. No pneumothorax. Cardiomediastinal contours: [id number] cardiomegaly. Bones: No acute osseous abnormality. IMPRESSION: Cardiomegaly with pulmonary vascular congestion and bilateral lower lung zone atelectasis. Possible trace left-sided pleural effusion.
[2025-09-10 21:00] LABS: LEUKOCYTE ESTERASE ,URINE LARGE (Neg); NITRITES, URINE NEGATIVE (Neg); OCCULT BLOOD,URINE MODERATE (Neg)
[2025-09-10 21:15] LABS: SQUAMOUS EPITHELIAL CELL,UR NONE SEEN /LPF (FEW); WBC CLUMPS,URINE MANY /HPF (NEGATIVE)
[2025-09-10 21:23] LABS: UA COLLECTION TYPE STRAIGHT CATH
[2025-09-10] MEDS: CefTRIAXone 2gm/D5W 50ml BAG 50 ML IV ONE (21:42)
[2025-09-10] MEDS ORDERED: potassium Cl 40MEQ/1/2NS 520ml 520 ML IV PRN (22:20)
[2025-09-10] MEDS ORDERED: potassium Cl 20 mEq SR tablet PO PRN ×2 (22:20)
[2025-09-10] MEDS ORDERED: ondansetron/PF 4mg/2ml inj IV PRN (22:20)
[2025-09-10] MEDS ORDERED: magnesium Cl slow-release 64mg tablet PO PRN (22:20)
[2025-09-10] MEDS ORDERED: magnesium sulf-water 4G/100mL 100 ML IV PRN (22:20)
[2025-09-10] MEDS ORDERED: magnesium sulf-water 2g/50mL 50 ML IV PRN (22:20)
[2025-09-10 22:51] LABS: APTT 29 SECONDS (22-32); INR 1.0 INR
[2025-09-10] MEDS: LidoCAINE 2% Topical Jelly 11mL syringe (UROJET) TOP ONE (23:01)
--- NOTE | 2025-09-10 23:01 | RADIOLOGY REPORT ---
Exam: CT CT ABDOMEN PELVIS History: Abdominal pain COMPARISON: CT CT ABDOMEN PELVIS on DOS: 05/12/25, CT CT ABDOMEN PELVIS on DOS: 01/17/25, CT CT ABDOMEN PELVIS on DOS: 05/31/24, CT CT ABDOMEN PELVIS on DOS: 04/08/24, CT CT CHEST ABDOMEN PELVIS on DOS: 03/24/24 Technique: Multidetector spiral CT of the abdomen and pelvis was performed from lung bases to pubic symphysis. Axial, coronal and sagittal multiplanar reformats were performed by the technologist on a separate workstation. Radiation Dose : 1. Abdomen/Pelvis: CTDIvol 36.46 mGy, DLP 2082.14 mGy*cm. Findings: Lung Bases: Mild dependent atelectatic changes bilaterally. Liver: The liver is normal in size. No focal lesions. Gallbladder and Biliary Tree: Gallbladder is surgically absent. Spleen: Unremarkable Pancreas: Unremarkable. Adrenal Glands: Unremarkable Kidneys: Kidneys are atrophic with multiple bilateral renal cortical cysts. Bladder: Thickened. Mild surrounding edema. Bowel: The stomach is grossly normal in appearance. Small bowel and colon are normal in caliber and distribution. The appendix is not visualized; however, no secondary findings of acute appendicitis identified. Ascites: Absent Lymphadenopathy: No mesenteric, retroperitoneal or periportal lymphadenopathy. Abdominal Wall and Mesentery: Unremarkable. Vasculature: Unremarkable Pelvic Organs: Unremarkable Musculoskeletal: No aggressive focal bony lesions, acute fractures or dislocation. IMPRESSION: Urinary bladder is thickened with mild surrounding edema. Please correlate with any symptoms of cystitis. Otherwise no acute abnormality or clear cause for symptoms. Radiation optimization: All CT scans at this facility use at least one of these dose optimization techniques: automated exposure control mA and/or kV adjustment per patient size (includes targeted exams where dose is matched to clinical indication) or iterative reconstruction.
[2025-09-10 23:18] LABS: URINE AMPHETAMINE SCREEN NEGATIVE (Neg); URINE BARBITUATE SCREEN NEGATIVE (Neg); URINE BENZODIAZEPINES SCREEN NEGATIVE (Neg); URINE CANNABINOID SCREEN NEGATIVE (Neg); URINE COCAINE SCREEN NEGATIVE (Neg); URINE METHADONE SCREEN NEGATIVE (Neg); URINE OPIATE SCREEN POSITIVE (Neg); URINE PHENCYCLIDINE SCREEN NEGATIVE (Neg)
--- NOTE | 2025-09-10 23:25 | HISTORY AND PHYSICAL-Residence ---
History & Physical Providers to CC Resident Creating Document: RAYMON WALKER, RES ~ History of Present Illness Primary Medical Doctor: GEORGES Reason for Admit\Complaint: Confusion History of Present Illness 70 years male with history of CKD on dialysis, COPD, CHF with preserved ejection fraction, on home oxygen 4 L nasal cannula, obesity wheelchair-bound, UTI MDRO brought to the ED due to confusion. Patient is on hemodialysis, three days a week and today it was a dialysis day she could not finish the dialysis course due to confusion and they brought patient to the ED. Patient is drowsy and she fell asleep during my conversation most of the information gathered from his and EMR and medical staff. As his report patient did not not reported any symptoms including fever or chills abdominal pain the morning, as medical staff report patient was confused during dialysis. Patient discharged from our hospital three days ago with diagnosis of acute metabolic encephalopathy, sepsis, pneumonia, acute respiratory failure, CHF exacerbation patient received ceftriaxone and azithromycin and discharged home with levofloxacin. Allergies: Coded Allergies: Iodinated Contrast Media (Verified Allergy, Severe, SOB, DIAPHORETIC, 09/10/25) bee venom protein (honey bee) (Verified Allergy, Unknown, 09/10/25) iodine (Verified Adverse Reaction, Intermediate, SEE COMMENTS, 09/10/25) 1998 post ivp- pt c/o chest and abd pain- to er- no treatment needed- resolved. Home Medications Home Medications Active Levofloxacin 250 Mg Tablet 1 Tab PO DAILY 7 Days Probiotic (Lactobacillus Acidophilus) 10 Billion Cell Capsule 1 Each PO DAILY 14 Days Reported Trelegy Ellipta 100-62.5-25 (Fluticasone/Umeclidin/Vilanter) 100-62.5 Blst.w.dev 1 Puffs INH DAILY 30 Days Aspir 81 (Aspirin) 81 Mg Tablet.dr 1 Tab PO DAILY 30 Days Fluticasone Propionate 50 Mcg/Actuation Saline.susp 2 Sprays BOTHNARES DAILY Prilosec (Omeprazole) 40 Mg Capsule 2 Cap PO BID Midodrine Hcl 10 Mg Tablet 1 Tab PO DAILY Amiodarone HCl 200 Mg Tablet 1 Tab PO DAILY Gabapentin 600 Mg Tablet 0.5 Tab PO HS 30 Days Flomax* (Tamsulosin HCl) 0.4 Mg Cap.sr.24h 1 Cap PO DAILY 30 Days Multi Vitamin Daily (Multivitamin) 1 Each Tablet 1 Tab PO DAILY 30 Days Fish Oil 1,000 Mg Ec Softgel ([place]-3/Dha/Epa/Fish Oil) 300 Mg-1,000 Mg Capsule.dr 1 Cap PO Q12H 30 Days Dialyvite Tablet (Folic Acid/Vitamin B Comp W-C) Unknown Strength Tablet 1 Tab PO DAILY 30 Days Modafinil 200 Mg Tablet 1 Tab PO DAILY PRN Calcium Acetate 667 Mg Capsule 2 Cap PO TID Diazepam 5 Mg Tablet 5 Mg PO DAILY PRN 30 Days Percocet 10-325 mg Tablet (Oxycodone HCl/Acetaminophen) 10 Mg-325 Mg Tablet 1 Tab PO Q8H PRN MDD 6 Tablet(s) Duloxetine HCl 60 Mg Capsule.dr 60 Mg PO DAILY 30 Days Past Medical History Past Medical History metabolic encephalopathy Sepsis,Community-acquired pneumonia Acute hypoxemia respiratory failure 2/2 COPD exacerbation , Home oxygen dependent chronic HFpEF (Ef is 50-55% on 01/17/2025) ESRD, dialysis dependent, av fistula on right arm Normocytic normochromic anemia, likely anemia of chronic disease History of Charcot's disease Morbid obesity BMI 42.5 Hypertension Past Surgical History Surgical History Comment appendectomy, cholecystectomy, orthopedic surgeries Dental surgery. Av fistula placement Family History Family History: (DM Type 2) Diabetes mellitus type 2 MOTHER ( ), , Age: 68, Cause: of unknown cause FH: breast cancer MOTHER ( ), , Age: 68, Cause: of unknown cause FH: stroke FATHER, , Age: 69, Cause: of unknown cause Past Social History Smoking: Quit greater than 1 year (Quit smoking 10 years ago, smoked for about 40 years), Cigarettes Alcohol Use: None Drug Use: None Lives with: S/O Lives In: Home ROS ROS Review of system is limited due to confusion Exam Vitals: Vital Signs Date Time Temp Pulse Resp B/P (MAP) Pulse Ox O2 Delivery O2 Flow Rate FiO2 09/10/25 22:56 60 18 143/65 (91) 98 0 General: General: Obese gentleman, not in acute distress Patient is drowsy and falls asleep during our conversation HEENT: Conjunctiva pale, Sclera clear, Mucus Membranes moist. Neck: Supple without masses and tenderness. Resp: Diminished breath sounds bilaterally Heart: Regular Rate and rhythm, normal S1 and S2 Abdomen: Obese, soft, mild tenderness on lower abdomen, no CVA tenderness Extremities: No cyanosis,clubbing or edema. Skin: Multiple bruise in the skin Neurological: Patient is awake, following sleep during conversation, partially follow commands Strength of upper extremity four five Lower extremity strength 2/5 which is chronic Diagnostic Data Last Recorded Lab Results: 09/10/[id number] Diagnostic Data: Laboratory Tests Test 09/10/25 18:53 Prothrombin Time 10.2 SECONDS (9.0-12.0) INR International Normalized Ratio 1.0 INR Activated Partial Thromboplast Time 29 SECONDS (22-32) Coagulation Comments Advance Care Planning Advanced Care plannin - 30 Minutes Additional Plan 70 years male with history of CKD on dialysis, COPD, CHF with preserved ejection fraction, on home oxygen 4 L nasal cannula, obesity wheelchair-bound, brought to the ED due to confusion Confusion UTI, metabolic encephalopathy No SIRS criteria, elevated procal 5.16 History of recent hospitalization for sepsis pneumonia and respiratory failure( patient received ceftriaxone azithromycin and discharged home with levofloxacin) head CT scan is pending UA positive, culture is pending, patient had history of multiple UTI MDRO in the past and multiple antibiotic use Last positive urine culture IN 08/20 showed strep agalactiae: sensitive to ampicillin, levofloxacin, linezolid, vancomycin on 05/31/24 He also had history of urine culture with Klebsiella pneumoniae positive, MDRO Received 1 g ceftriaxone in the ED, because patient received multiple antibiotic waiting last month We will start cefepime 1 g today and continue 500 Q 24, on dialysis days admin We will consult Nephrology tomorrow ESRD on three days of dialysis BUN 48, creatinine 6.38, stable Nephrology consult tomorrow Chronic heart failure with preserved ejection fraction Echo 09/05/25 Overall LVEF is 55-60%. Normal LV size and wall thickness. Overall systolic function is normal. RV is moderately dilated with normal function. Trileaflet AV appears mildly sclerotic without stenosis. No insufficiency. Mild MV annular calcification without stenosis. Trace regurgitation. TV appears structurally normal with trace regurgitation. Normal PV without stenosis, no insufficiency. Normal pericardium. No effusion. Continue home medication after reconciliation COPD not in exacerbation Stable, patient is on 4 L oxygen at home We will continue DuoNeb Paroxysmal AFib Patient is on amiodarone 200 daily, stopped taking Eliquis due to multiple time bleeding Following Dr. Ramirez museum exhibit technician Hypochromic normocytic anemia Hemoglobin 8.8, hematocrit 28, stable compared to last visit Secondary to chronic disease Other comorbidities: History of Charcot's disease Morbid obesity, BMI 42.5, depression Code Status: full DVT prophylaxis: heparin sq Analgesia/sedation: none Line/tube: peripheral GI prophylaxis: protonix Nutrition: npo, aspiration precaution PT: Y Prognosis: GUARDED Disposition: Continue monitoring patient in PCU floor with telemetry Raymon Walker MD Internal Medicine Resident Patient seen and evaluated using HIPPA complaint AV device Agree with plan as discussed with the resident Oscar Pearson MD Date of Service: Sep 10, 2025 Billing Provider: OSCAR PEARSON MD, ELAHE, KRISHNA Sep 10, 2025 23:25 OSCAR PEARSON MD Sep 11, 2025 03:03
[2025-09-11] VITALS (17 sets, daily range): BP systolic 101–123; BP diastolic 35–52; PULSE 60–69; RESP 16–20; TEMP 97.8–98.1; O2SAT 91–97
[2025-09-11] MEDS: cefepime 1GM in D5W 50mL 50 ML IV ONE ×2 (01:22→01:26)
--- NOTE | 2025-09-11 02:46 | RADIOLOGY REPORT ---
EXAM: CT CT HEAD W/ IV CONTRAST INDICATION: Confusion TECHNIQUE: CT of the head without intravenous contrast. Radiation Dose : 1. Head: CT Dose: CTDI volume is 66.64 mGy. Dose-length product is 1390.11 mGy*cm The dose indicators for CT are the volume Computed Tomography (CT) Dose Index (CTDIvol) and the Dose Length Product (DLP), and are measured in units of mGy and mGy-cm, respectively. These indicators are not patient dose, but values generated from the CT scanner acquisition factors. The report includes radiation exposure data for exposures received during this examination. COMPARISON: CT CT HEAD on DOS: 04/08/25, CT CT HEAD on DOS: 11/10/24, CT CT CERVICAL SPINE on DOS: 11/10/24, CT CT HEAD on DOS: 05/31/24, CT CT HEAD on DOS: 05/12/24 FINDINGS: There is no evidence of acute intracranial hemorrhage, extra-axial collection, mass effect, midline shift, herniation or hydrocephalus. Stable appearing focal right occipital encephalomalacia and volume loss. The ventricles, sulci and cisterns are age appropriate. The lan-white differentiation is intact. Patchy periventricular and subcortical white matter hypoattenuation is nonspecific but may be related to small vessel ischemic disease. The visualized paranasal sinuses and mastoid air cells are clear. The surrounding soft tissues and osseous structures are unremarkable. IMPRESSION: 1. No acute intracranial abnormality. 2. Stable appearing focal right occipital focal encephalomalacia and volume loss. Radiation optimization: All CT scans at this facility use at least one of these dose optimization techniques: automated exposure control mA and/or kV adjustment per patient size (includes targeted exams where dose is matched to clinical indication) or iterative reconstruction.
[2025-09-11] MEDS: ipratropium/albuterol 3ml nebule NEB SCH (03:16)
[2025-09-11 07:08] LABS: MEAN PLATELET VOLUME 7.1 FL (7.4-10.4); RED CELL DISTRIBUTION WIDTH 19.5 % (11.5-14.5)
[2025-09-11 07:21] LABS: CREATININE 7.03 MG/DL (0.60-1.10); TOTAL CARBON DIOXIDE 28.7 MMOL/L (24-32); eCRCL 9 ML/MIN; eGFR 8 ML/MIN
[2025-09-11] MEDS ORDERED: glucagon, human recombinant 1mg kit SUBCUT PRN (08:00)
[2025-09-11] MEDS: K and/or MAG REPLACEMENT MC SCH (08:00)
[2025-09-11] MEDS ORDERED: dextrose 50%-water 50ml dispensing syringe IV PRN (08:00)
[2025-09-11] MEDS ORDERED: DEXTROSE 15 GM of carb/4 tabs (each vial/BOTTLE has 4 tablets) PO PRN ×2 (08:00)
[2025-09-11 08:11] LABS: PLATELET ESTIMATE NORMAL
[2025-09-11] MEDS ORDERED: vancomycin/NS 1 GM ADD-VANTAGE 250 ML X 1 DOSE IV PRN (09:00)
[2025-09-11] MEDS: heparin, porcine 5000 units/ml vial SQ SCH (10:25)
[2025-09-11] MEDS: vancomycin/NS 1 GM ADD-VANTAGE 250 ML X 1 DOSE IV ONE (10:26)
--- NOTE | 2025-09-11 10:35 | PROGRESS NOTE ---
Daily Progress Note Providers to CC ~ Antibiotic Timeout Antibiotic Ordered?: Yes Subjective No acute events overnight. Patient examined at bedside. No new complaints not in acute distress. Patient denies chest pain, sob, palpitations, abdominal pain, n/v/d. Vss, labs consistent with ESRD. Consulted internet marketing intern for scheduled HD. Objective Vital Signs Date Time Temp Pulse Resp B/P (MAP) Pulse Ox O2 Delivery O2 Flow Rate FiO2 09/11/25 07:55 69 16 Nasal Cannula 3.0 09/11/25 07:46 92 32 09/11/25 04:30 97.8 122/35 (64) Result Diagram: 09/11/25 0557 09/11/2557 Physical Exam General: Generalized weakness, A&Ox2, NAD, morbidly obese HEENT: Normocephalic, PERRLA Neck: Supple, trachea midline, no JVD Chest: Clear to auscultation bilaterally Cardiovascular: RRR, S1&S2 GI: Soft and nontender Extremities: No cyanosis/clubbing/or edema MOBILE MARKETING SPECIALIST: CN II-XII intact, no focal deficits Musculoskeletal: No paraspinal muscle tenderness, no muscle spasm Skin: Warm and intact Coagulation Studies Laboratory Tests Test 09/10/25 18:53 Prothrombin Time 10.2 SECONDS (9.0-12.0) INR International Normalized Ratio 1.0 INR Activated Partial Thromboplast Time 29 SECONDS (22-32) Coagulation Comments Problem\Assessment\Plan 70 years male with history of CKD on dialysis, COPD, CHF with preserved ejection fraction, on home oxygen 4 L nasal cannula, obesity wheelchair-bound, brought to the ED due to confusion Assessment & Plan UTI Metabolic encephalopathy likely 2/2 UTI ESRD on HD (T, , Sat) -Kane mccormack in April, has received Rocephin and was discharged with levofloxacin recently -start vanco HD dose, consulted internet marketing intern Dr. Amador Acute decompensated diastolic heart failure Paroxysmal AFib (Dr. Barahona) Echo 09/05/25 Overall LVEF is 55-60%, no significant VHD Patient is on amiodarone 200 daily, stopped taking Eliquis due to multiple time bleeding Anemia BRINDA -stable, ferritin wnl, iron deficiency, follow H/H COPD, not in exacerbation History of Charcot's disease Class III obesity MDD -uses home 4L O2, prn bronchodilators Code Status: Full code DVT prophylaxis: heparin Date of Service: Sep 11, 2025 Billing Provider: VASILIY DEGROOT Common Visit Codes: [id number] INP/OBS CARE(HIGH) VASILIY DEGROOT Sep 11, 2025 10:35
[2025-09-11] MEDS: pantoprazole 40mg Tablet.DR PO ONE (11:13)
[2025-09-11] MEDS: dextrose 50%-water 50ml dispensing syringe IV PRN (11:44)
[2025-09-11] MEDS: INSULIN LISPRO 100 UNIT/ML INSULN.PEN MULTI-DOSE SQ SCH (12:00)
--- NOTE | 2025-09-11 17:30 | CONSULTATION REPORT - RESIDENT ---
Consult Providers to CC Resident Creating Document: DOM TAYLOR RES History of Present Illness Reason for Admit\Complaint: Encephalopathy secondary to UTI. History of Present Illness This is a 70-year-old male with past medical history of Charcot's disease (wheelchair bound),COPD on 4 L of oxygen, atrial fibrillation, CHFpEF, hypertension, ESRD on dialysis TTS, recurrent UTIs, MDRO, was brought to the ED by EMS for confusion. He is a patient with frequent admissions due to encephalopathy secondary to UTI. Yesterday during dialysis, patient was confused and was brought to the ED. Patient is drowsy and not responsive. Patient was recently discharged from hospital, was managed for metabolic encephalopathy, sepsis, pneumonia, CHF exacerbation. And was discharged home on levofloxacin. Allergies: Coded Allergies: Iodinated Contrast Media (Verified Allergy, Severe, SOB, DIAPHORETIC, 09/10/25) bee venom protein (honey bee) (Verified Allergy, Unknown, 09/10/25) iodine (Verified Adverse Reaction, Intermediate, SEE COMMENTS, 09/10/25) 1998 post ivp- pt c/o chest and abd pain- to er- no treatment needed- resolved. Home Medications Home Medications Active Levofloxacin 250 Mg Tablet 1 Tab PO DAILY 7 Days Probiotic (Lactobacillus Acidophilus) 10 Billion Cell Capsule 1 Each PO DAILY 14 Days Reported Trelegy Ellipta 100-62.5-25 (Fluticasone/Umeclidin/Vilanter) 100-62.5 Blst.w.dev 1 Puffs INH DAILY 30 Days Aspir 81 (Aspirin) 81 Mg Tablet.dr 1 Tab PO DAILY 30 Days Fluticasone Propionate 50 Mcg/Actuation [place].susp 2 Sprays BOTHNARES DAILY Prilosec (Omeprazole) 40 Mg Capsule 2 Cap PO BID Midodrine Hcl 10 Mg Tablet 1 Tab PO DAILY Amiodarone HCl 200 Mg Tablet 1 Tab PO DAILY Gabapentin 600 Mg Tablet 0.5 Tab PO HS 30 Days Flomax* (Tamsulosin HCl) 0.4 Mg Cap.sr.24h 1 Cap PO DAILY 30 Days Multi Vitamin Daily (Multivitamin) 1 Each Tablet 1 Tab PO DAILY 30 Days Fish Oil 1,000 Mg Ec Softgel ([place]-3/Dha/Epa/Fish Oil) 300 Mg-1,000 Mg Capsule.dr 1 Cap PO Q12H 30 Days Dialyvite Tablet (Folic Acid/Vitamin B Comp W-C) Unknown Strength Tablet 1 Tab PO DAILY 30 Days Modafinil 200 Mg Tablet 1 Tab PO DAILY PRN Calcium Acetate 667 Mg Capsule 2 Cap PO TID Diazepam 5 Mg Tablet 5 Mg PO DAILY PRN 30 Days Percocet 10-325 mg Tablet (Oxycodone HCl/Acetaminophen) 10 Mg-325 Mg Tablet 1 Tab PO Q8H PRN MDD 6 Tablet(s) Duloxetine HCl 60 Mg Capsule.dr 60 Mg PO DAILY 30 Days Past Medical History Past Medical History COPD, chronic respiratory failure on home oxygen at 4 L/min ESRD on HD, TTS Chronic anemia History of multiple UTIs MDRO Klebsiella Chronic back pain Heart failure with preserved ejection fraction Obesity ?MINA History of renal stones Tardive dyskinesia Past Surgical History Surgical History Comment Appendectomy Cholecystectomy Orthopedic surgeries Family History Family History: (DM Type 2) Diabetes mellitus type 2 MOTHER ( ), , Age: 68, Cause: of unknown cause FH: breast cancer MOTHER ( ), , Age: 68, Cause: of unknown cause FH: stroke FATHER, , Age: 69, Cause: of unknown cause Past Social History Social History Comment Uses oxygen at home, uses wheelchair for ambulation, follows up with primary care at [facility]. Lives with his Ex-smoker, quit smoking in 2014 4 packs per day for 50 years- 200 pack years Occasional alcohol use Denies illicit drug use Does not smoke marijuana Exam Vitals: Vital Signs Date Time Temp Pulse Resp B/P (MAP) Pulse Ox O2 Delivery O2 Flow Rate FiO2 09/11/25 16:18 64 16 Nasal Cannula 3.0 09/11/25 16:09 95 32 09/11/25 10:00 97.9 123/43 (69) General: Elderly male, altered, Head: Normocephalic with an atraumatic Eyes: Pupils- 3mm, reacting to light, conjunctiva- anicteric Nose and throat: No polyps, septum- normal, no mucosal ulcers Neck: Supple, no lymphadenopathy, no carotid bruit Respiratory: equal air entry bilaterally, no crackles heard Cardiac: S1-S2 normal, regular, no murmurs Abdomen: non distended, no tenderness, no organomegaly, bowel sounds - heard Extremities: no clubbing, trace pedal edema, no deformities, peripheral pulses - 2+ Skin: warm and dry, no rash, no purpura Neuro: Complete evaluation could not be done considering patient's altered mental status. Awake, not alert, oriented to place and himself but not to time Diagnostic Data Last Recorded Lab Results: 09/11/25 0557 09/11/25 0557 Diagnostic Data: Laboratory Tests Test 09/10/25 18:53 Prothrombin Time 10.2 SECONDS (9.0-12.0) INR International Normalized Ratio 1.0 INR Activated Partial Thromboplast Time 29 SECONDS (22-32) Coagulation Comments Additional Plan Additional Plan Encephalopathy likely secondary to UTI History of multiple UTI, MDRO Urine analysis positive for infection. Patient has a history of multiple UTI with MDRO in the past Urine culture during recent admission on 09/19 showed mixed mckenna urine culturein 08/20 showed strep agalactiae: sensitive to ampicillin, levofloxacin, linezolid, vancomycin, was discharged on levofloxacin. urine culture on 05/2024 Klebsiella pneumoniae positive, MDRO Continuing poor response to levofloxacin, patient was initiated on vancomycin. ESRD on dialysis, Sunday, , Sunday Last dialysis was yesterday. Creatinine 7.03, BUN 56, GFR eight Patient will be dialyzed tomorrow. Chronic hypoxemic and hypercarbic respiratory failure Chronic COPD, not in acute exacerbation Patient is on 3 L of oxygen at baseline DuoNebs q.4 p.r.n. Chronic CHF with preserved ejection fraction not in acute exacerbation Elevated proBNP Echo 09/05/25 Overall LVEF is 55-60%. Chronic normocytic anemia Hemoglobin 8.8, hematocrit 28, stable compared to last visit Retacrit tomorrow during dialysis. 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 Nephrology attending: This is a TTS patient that is admitted with encephalopathy and ongoing recurrent UTIs. Heis on antibiotics. will proceed with HD tomorrow in am. he does have edema. change antibiotics if there was a previous resistance to rocephine please, as he is a frequent flier with similar history and has had ESBL in the past. Consider getting ID consult for proper outpatient management to prevent frequent admissions. Brennan Bull MD Date of Service: Sep 11, 2025 Billing Provider: BRENNAN BULL MD, PRAVAHIKA, RES Sep 11, 2025 17:30 BRENNAN BULL MD Sep 11, 2025 20:47
[2025-09-11] MEDS: OMEGA-3/DHA/EPA/FISH OIL 1 EACH CAPSULE.DR PO SCH (20:00)
[2025-09-12] VITALS (24 sets, daily range): BP systolic 107–156; BP diastolic 51–87; PULSE 64–85; RESP 12–21; TEMP 97.5–99.1; O2SAT 90–98
[2025-09-12] MEDS: VANCOMYCIN RANDOM LEVEL IV SCH (03:00)
[2025-09-12 06:24] LABS: MEAN PLATELET VOLUME 7.1 FL (7.4-10.4); RED CELL DISTRIBUTION WIDTH 20.8 % (11.5-14.5)
[2025-09-12 07:03] LABS: CREATININE 8.82 MG/DL (0.60-1.10); TOTAL CARBON DIOXIDE 26.1 MMOL/L (24-32); eCRCL 7 ML/MIN; eGFR 6 ML/MIN
[2025-09-12] MEDS ORDERED: pantoprazole 40mg Tablet.DR PO SCH (07:30)
[2025-09-12] MEDS: multivitamins, therapeutics tablet PO SCH (08:00)
[2025-09-12] MEDS: duloxetine 30mg CAPSULE.DR PO SCH (08:00)
[2025-09-12] MEDS: lactobacillus rhamnosus 10,000 MMU CELLS/CAPSULE PO SCH (08:00)
[2025-09-12] MEDS: CefTRIAXone/D5W-Rocephin 1gm 50 ML IV SCH (09:03)
--- NOTE | 2025-09-12 10:02 | PROGRESS NOTE ---
Daily Progress Note Providers to CC ~ Antibiotic Timeout Antibiotic Ordered?: Yes Subjective No acute events overnight. Patient examined at bedside. No new complaints, not in acute distress. Patient is lethargic. Vss, labs consistent with ESRD. HD today. Objective Vital Signs Date Time Temp Pulse Resp B/P (MAP) Pulse Ox O2 Delivery O2 Flow Rate FiO2 09/12/25 09:50 94 Nasal Cannula* 4 36 09/12/25 08:40 69 16 09/12/25 06:00 97.5 107/87 (94) Result Diagram: 09/12/25 0546 09/12/25 0546 Physical Exam General: Generalized weakness, difficult to arouse, NAD, morbidly obese HEENT: Normocephalic, PERRLA Neck: Supple, trachea midline, no JVD Chest: Clear to auscultation bilaterally Cardiovascular: RRR, S1&S2 GI: Soft and nontender Extremities: No cyanosis/clubbing/or edema SURGICAL TECHNOLOGIST: CN II-XII intact, no focal deficits Musculoskeletal: No paraspinal muscle tenderness, no muscle spasm Skin: Warm and intact Coagulation Studies Laboratory Tests Test 09/10/25 18:53 Prothrombin Time 10.2 SECONDS (9.0-12.0) INR International Normalized Ratio 1.0 INR Activated Partial Thromboplast Time 29 SECONDS (22-32) Coagulation Comments Problem\Assessment\Plan 70 years male with history of CKD on dialysis, COPD, CHF with preserved ejection fraction, on home oxygen 4 L nasal cannula, obesity wheelchair-bound, brought to the ED due to confusion Assessment & Plan UTI Metabolic encephalopathy likely 2/2 UTI ESRD on HD (T, , Sun) -[facility] m[facility]ormack in April, has received Rocephin and was discharged with levofloxacin recently -start vanco HD dose, consulted police detention attendant Dr. Amador Acute decompensated diastolic heart failure Paroxysmal AFib (Dr. Barahona) Echo 09/05/25 Overall LVEF is 55-60%, no significant VHD Patient is on amiodarone 200 daily, stopped taking Eliquis due to multiple time bleeding Anemia BRINDA -stable, ferritin wnl, iron deficiency, follow H/H COPD, not in exacerbation History of Charcot's disease Class III obesity MDD -uses home 4L O2, prn bronchodilators Code Status: Full code DVT prophylaxis: heparin Date of Service: Sep 12, 2025 Billing Provider: VASILIY DEGROOT Common Visit Codes: [id number] INP/OBS CARE(HIGH) VASILIY DEGROOT Sep 12, 2025 10:02
[2025-09-12] MEDS ORDERED: albumin (human) 25% 100ml IV 100 ML IV PRN (10:30)
[2025-09-12] MEDS: vancomycin/NS 1 GM ADD-VANTAGE 250 ML X 1 DOSE IV ONE (11:24)
[2025-09-12] MEDS: EPOETIN ALFA-EPBX 20,000 UNIT/ML 1 ML MDV IV ONE (13:20)
[2025-09-12] MEDS: heparin 1,000unit/ml 10ml vial 10 ML IV ONE (13:32)
[2025-09-12] MEDS: heparin 1,000 units/ml 10ml inj IV ONE (13:33)
[2025-09-12] MEDS: heparin 1,000 units/ml 10ml inj HE ONE ×2 (13:33→13:34)
--- NOTE | 2025-09-12 14:14 | PROGRESS NOTE ---
Progress Note Dictate Providers to CC ~ Central Line/PICC still needed: No Patricia Indications Met/Not Met: F/C Indications Not Met Antibiotic Ordered?: Yes Subjective Subjective 70/M with recurrent UTis, now encephalopathic. he needs HD today. try to avoid opiates for him. Objective Vitals Vital Signs Date Time Temp Pulse Resp B/P (MAP) Pulse Ox O2 Delivery O2 Flow Rate FiO2 09/12/25 14:00 71 16 127/67 (87) 96 Nasal Cannula 2.0 09/12/25 13:00 99.0 09/12/25 11:47 32 Lab Results: 09/12/25 0546 09/12/25 0546 Objective Vital Signs: As above General: morbidly obese body habitus, no acute distress. Skin: No rashes, lumps, ulcers, blisters, purpura or petechiae HEENT: Anicteric sclera, ALEXANDER Neck: Supple and nontender without enlargement of the thyroid, or lymphadenopathy. Chest: Normal size and shape, no tenderness, CTA bilaterally Heart: Regular. No jugular venous distention, S1 and S2 heard , no gallop Abdomen: Soft and non tender no organomegaly,BS+ Extremities: No pedal edema Neuro: encephalopathic. Coagulation Studies Laboratory Tests Test 09/10/25 18:53 Prothrombin Time 10.2 SECONDS (9.0-12.0) INR International Normalized Ratio 1.0 INR Activated Partial Thromboplast Time 29 SECONDS (22-32) Coagulation Comments Advance Care Planning Advanced Care plannin - 30 Minutes Problem\Assessment\Plan Problems/Diagnosis: (1) End-stage renal disease on hemodialysis Assessment & Plan: HD today. orders are in place. getting started soon (2) Urinary tract infection Assessment & Plan: antibiotics per hospitalist team (3) Metabolic encephalopathy Assessment & Plan: should get better with antibiotics and dilaysis. Sepsis Screening Skin Color: Pale LUCIO BULL MD Sep 12, 2025 14:14
[2025-09-13] VITALS (9 sets, daily range): BP systolic 112–120; BP diastolic 52–56; PULSE 68–85; RESP 17–24; TEMP 97.5–99.1; O2SAT 85–99
[2025-09-13 06:25] LABS: MEAN PLATELET VOLUME 7.1 FL (7.4-10.4); RED CELL DISTRIBUTION WIDTH 21.7 % (11.5-14.5)
[2025-09-13 06:56] LABS: CREATININE 5.96 MG/DL (0.60-1.10); TOTAL CARBON DIOXIDE 27.8 MMOL/L (24-32); eCRCL 11 ML/MIN; eGFR 9 ML/MIN
--- NOTE | 2025-09-13 07:42 | PROGRESS NOTE ---
Progress Note Dictate Providers to CC ~ Central Line/PICC still needed: Yes Central Line/PICC Necessity: Req HD/Plasmapheresis Patricia Indications Met/Not Met: F/C Indications Not Met Antibiotic Ordered?: Yes Subjective Subjective he has been discharged by Yaya Nunes already. She spoke to me. He is on multiple meds that can alter his mental status and these have been stopped. Unfortunately, I don't know what he does at home and these scripts should not be renewed by pharmacy or by his primary physician. Objective Vitals Vital Signs Date Time Temp Pulse Resp B/P (MAP) Pulse Ox O2 Delivery O2 Flow Rate FiO2 09/13/25 10:42 83 24 Nasal Cannula 2.0 09/13/25 10:34 85 21 09/13/25 10:00 97.5 120/56 (77) Lab Results: 09/13/25 0535 09/13/25 0535 Objective Vital Signs: As above General: morbidly obese body habitus, no acute distress. Skin: No rashes, lumps, ulcers, blisters, purpura or petechiae HEENT: Anicteric sclera, ALEXANDER Neck: Supple and nontender without enlargement of the thyroid, or lymphadenopathy. Chest: Normal size and shape, no tenderness, CTA bilaterally Heart: Regular. No jugular venous distention, S1 and S2 heard , no gallop Abdomen: Soft and non tender no organomegaly,BS+ Extremities: No pedal edema Neuro: encephalopathic. Coagulation Studies Laboratory Tests Test 09/10/25 18:53 Prothrombin Time 10.2 SECONDS (9.0-12.0) INR International Normalized Ratio 1.0 INR Activated Partial Thromboplast Time 29 SECONDS (22-32) Coagulation Comments Advance Care Planning Advanced Care plannin - 30 Minutes Problem\Assessment\Plan Problems/Diagnosis: (1) End-stage renal disease on hemodialysis (2) Urinary tract infection (3) Metabolic encephalopathy Sepsis Screening Skin Color: Normal LUCIO BULL MD Sep 13, 2025 07:42
--- NOTE | 2025-09-13 12:28 | DISCHARGE SUMMARY ---
Discharge Summary Providers to CC ~ Discharge Summary Admission Diagnosis: Metabolic encephalopathy, UTI, CKD, sepsis Hospital Course DATE OF ADMISSION: 09/10/25 DATE OF DISCHARGE: 09/13/25 Discharge Diagnosis\\Comment: Toxic encephalopathy likely 2/2 opioid use UTI- ruled out ESRD on HD (T, Th, Sat) Acute decompensated diastolic heart failure Paroxysmal AFib (Dr. Barahona) Anemia BRINDA COPD, not in exacerbation, on 4L home O2 History of Charcot's disease Class III obesity MDD Operations\\Procedures: Hemodialysis Consultants: Alum Mixer Brennan Peoples Complications: None Condition on DC: Stable Continued Medications: Amiodarone HCl (Amiodarone HCl) 200 Mg Tablet 1 TAB PO DAILY, TAB 0 Refills Aspirin (Aspir 81) 81 Mg Tablet.dr 1 TAB PO DAILY for 30 Days, #30 TAB Calcium Acetate (Calcium Acetate) 667 Mg Capsule 2 CAP PO TID Duloxetine HCl (Duloxetine HCl) 60 Mg Capsule.dr 60 MG PO DAILY for 30 Days, #30 CAP Fluticasone Propionate (Fluticasone Propionate) 50 Mcg/Actuation [place].susp 2 SPRAYS BOTHNARES DAILY, #16 GM 0 Refills Fluticasone/Umeclidin/Vilanter (Trelegy Ellipta 100-62.5-25) 100-62.5 Blst.w.dev 1 PUFFS INH DAILY for 30 Days, #1 EA 0 Refills Folic Acid/Vitamin B Comp W-C (Dialyvite Tablet) Unknown Strength Tablet 1 TAB PO DAILY for 30 Days, #30 TAB 0 Refills Gabapentin (Gabapentin) 600 Mg Tablet 0.5 TAB PO HS for 30 Days, #90 TAB 0 Refills Lactobacillus Acidophilus (Probiotic) 10 Billion Cell Capsule 1 EACH PO DAILY for 14 Days, #14 CAP Levofloxacin (Levofloxacin) 250 Mg Tablet 1 TAB PO DAILY for 7 Days, #7 TAB Modafinil (Modafinil) 200 Mg Tablet 1 TAB PO DAILY PRN for ED Multivitamin (Multi Vitamin Daily) 1 Each Tablet 1 TAB PO DAILY for 30 Days, #30 TAB 0 Refills [place]-3/Dha/Epa/Fish Oil (Fish Oil 1,000 Mg Ec Softgel) 300 Mg-1,000 Mg Capsule.dr 1 CAP PO Q12H for 30 Days, #60 CAP 0 Refills Omeprazole (Prilosec) 40 Mg Capsule 2 CAP PO BID, CAP Tamsulosin Hcl* (Flomax*) 0.4 Mg Cap.sr.24h 1 CAP PO DAILY for 30 Days, #30 CAP Discontinued Medications: Diazepam (Diazepam) 5 Mg Tablet 5 MG PO DAILY PRN for anxiety for 30 Days, #60 TAB 0 Refills Midodrine Hcl (Midodrine Hcl) 10 Mg Tablet 1 TAB PO DAILY, TAB 0 Refills Oxycodone HCl/Acetaminophen (Percocet 10-325 mg Tablet) 10 Mg-325 Mg Tablet 1 TAB PO Q8H PRN for pain MDD 6 Tablet(s), TAB Discharge Summary: History of Present Illness From H&P: "70 years male with history of CKD on dialysis, COPD, CHF with preserved ejection fraction, on home oxygen 4 L nasal cannula, obesity whee lchair-bound, UTI MDRO brought to the ED due to confusion. Patient is on hemodialysis, three days a week and today it was a dialysis day she could not finish the dialysis course due to confusion and they brought patient to the ED. Patient is drowsy and she fell asleep during my conversation most of the information gathered from his and EMR and medical staff. As his report patient did not not reported any symptoms including fever or chills abdominal pain the morning, as medical staff report patient was confused during dialysis. Patient discharged from our hospital three days ago with diagnosis of acute metabolic encephalopathy, sepsis, pneumonia, acute respiratory failure, CHF exacerbation patient received ceftriaxone and azithromycin and discharged home with levofloxacin." Hospital Course Diagnostic findings were notable for abnormal urinalysis and urine toxicology positive for opiates. Patient was initially treated with empirical antibiotics and dialysis. Case was consulted with retail buyer Dr. Amador for continued hemodialysis. Patient's home medications including opiate analgesics and b enzodiazepines were discontinued and patient was closely monitored. On day of discharge, patient is awake, alert, and oriented which renders high index of suspicion for encephalopathy attributable to home medications mentioned. Patient did not experience further complications throughout the entire hospital stay and made a good recovery. Patient was seen and examined on the day of discharge. On day of discharge, vss and labs unremarkable. Urine culture resulted negative. All labs, diagnostic workups, discharge plan discussed with patient in details during visit before discharge. All questions and concerns answered to the best of my professional knowledge. Patient is to be discharged with HH and to follow- up with PCP within 2 weeks. Patient is instructed to continue scheduled dialysis. Physical Exam General: Generalized weakness, A&Ox3, NAD, morbidly obese HEENT: Normocephalic, PERRLA Neck: Supple, trachea midline, no JVD Chest: Clear to auscultation bilaterally Cardiovascular: RRR, S1&S2 GI: Soft and nontender Extremities: No cyanosis/clubbing/or edema CROP NUTRITION SCIENTIST: CN II-XII intact, no focal deficits Musculoskeletal: No paraspinal muscle tenderness, no muscle spasm Skin: Warm and intact *Problems/Diagnosis: (1) End-stage renal disease on hemodialysis Status: Chronic (2) Urinary tract infection Status: Resolved (3) Metabolic encephalopathy Status: Acute Total Time Spent on D/C: > 30 Minutes Date of Service: Sep 13, 2025 Billing Provider: VASILIY DEGROOT Common Visit Codes: 74503-YXR/OBS DISCH DAY >30min VASILIY DEGROOT Sep 13, 2025 12:26
== END 2025-09-13 13:05 | disposition home health service (06) | DRG 91 ==
LOC: ER 17:32 → CICU 2S 22:07 → ED HOLD 09-11 00:31 → ORTHO 4S 09-11 04:05
PROVIDERS: ADMIT Internal Medicine; ATTEND Nurse Practitioner Family
PROC: 5A1D70Z Performance of Urinary Filtration, Intermittent, Less than 6 Hours Per Day (ICD-10-PCS; principal; 2025-09-12)
DX: G92.8 Other toxic encephalopathy (principal); I50.33 Acute on chronic diastolic (congestive) heart failure; N18.6 End stage renal disease; I13.2 Hypertensive heart and chronic kidney disease with heart failure and with stage 5 chronic kidney disease, or end stage renal disease; Z68.41 Body mass index [BMI] 40.0-44.9, adult; J96.10 Chronic respiratory failure, unspecified whether with hypoxia or hypercapnia; J96.12 Chronic respiratory failure with hypercapnia; J96.11 Chronic respiratory failure with hypoxia; D50.9 Iron deficiency anemia, unspecified; I48.0 Paroxysmal atrial fibrillation; M54.9 Dorsalgia, unspecified; G89.29 Other chronic pain; F11.90 Opioid use, unspecified, uncomplicated; N40.1 Benign prostatic hyperplasia with lower urinary tract symptoms; R33.8 Other retention of urine; E66.813 Obesity, class 3; K21.9 Gastro-esophageal reflux disease without esophagitis; F32.9 Major depressive disorder, single episode, unspecified; Z79.899 Other long term (current) drug therapy; Z99.2 Dependence on renal dialysis; Z99.3 Dependence on wheelchair; Z99.81 Dependence on supplemental oxygen; Z87.440 Personal history of urinary (tract) infections; Z91.030 Bee allergy status; Z91.041 Radiographic dye allergy status; Z87.442 Personal history of urinary calculi; Z87.891 Personal history of nicotine dependence; Z90.49 Acquired absence of other specified parts of digestive tract
CPT/HCPCS: 36415; 70450; 71045; 74176; 80053; 80202; 80305; 81001; 82248; 82948; 83605; 83735; 84145; 84484; 85008; 85025; 85610; 85730; 87040; 87081; 87088; 93005; 94640; 94760; 96365; 97161; 97530; 99285; A6154; A6213; A6250; A6590; C1758; E1594; G0257; G0378; J0692; J0696; J1644; J1815; J2470; J3373; J3490; Q4081